=== PATIENT | female | born 1990 | race African-American/Black ===

== ENCOUNTER 2022-10-24 20:05 | Emergency (ER) | payer OTHER, SELFPAY ==
[2022-10-24 20:37] VITALS: BP 157/114; PULSE 100; RESP 18; TEMP 36.9; O2SAT 97; BMI 33.7
--- NOTE | 2022-10-24 21:14 | ED.EYEPROB1 ---
HPI - Eye Problem General Stated complaint: EYE Time Seen by Provider: 10/24/22 20:59 Source: patient Mode of arrival: walk-in Limitations: no limitations History of Present Illness HPI Narrative: history of Crohn's related uveitis. States when she has a flare of her eyelids also swell. States started today. She does not have any steroid drops and so she came to the ER. She also complains of a sore throat for past week. States soreness has improved some. Hoarse voice for a couple of days. No problem breathing or swallowing. No fever or chills. Related Data Home Medications Medication Instructions Recorded Confirmed adalimumab 40 mg/0.4 mL mg subcut 10/24/22 subcutaneous pen kit (Humira(CF) Pen) azathioprine 50 mg tablet mg 10/24/22 levothyroxine 125 mcg tablet mcg 10/24/22 Allergies Allergy/AdvReac Type Severity Reaction Status Date / Time No Known Drug Allergies Allergy Verified 10/24/22 20:46 Review of Systems ROS Status of ROS 10 or more systems reviewed and unremarkable except as noted in history and below Ears, nose, mouth, and throat Reports: throat pain and hoarseness PFSH PFSH Social History Smoking status: Never smoker Exam Constitutional Vital Signs - 24 hr 10/24/22 20:37 Temperature 98.4 F Pulse Rate [Monitor] 100 H Respiratory Rate 18 Blood Pressure [Right Arm] 157/114 H Pulse Oximetry 97 Oxygen Delivery Method Room Air Common normals: oriented x3, healthy appearing, alert and well nourished [facility] Common normals: normocephalic, head/scalp atraumatic and hearing grossly normal bilaterally Other: oral pharynx clear. No swelling Eye Common normals: PERRL, EOMs intact bilaterally and conjunctivae normal Other: OD photosensitivity . mild swelling upper and lower right eye lid. No erythema. conjunctiva clear. iris clear. Respiratory Common normals: normal respiratory effort, no use of accessory muscles and clear to auscultation bilaterally Cardio Common normals: regular rate, regular rhythm, S1 normal heart sound and S2 normal heart sound GI Common normals: Normal to inspection, nondistended, normoactive bowel sounds present and non-tender Extremity Common normals: normal to inspection and no joint enlargement Neuro Common normals: oriented x3, CN's II-XII intact bilaterally, moves all extremities and no focal motor deficits Psych Appearance: grossly normal Course Vital Signs Vital signs: Vital Signs Temperature 98.4 F 10/24/22 20:37 Pulse Rate 100 H 10/24/22 20:37 Respiratory Rate 18 10/24/22 20:37 Blood Pressure 157/114 H 10/24/22 20:37 Pulse Oximetry 97 10/24/22 20:37 Oxygen Delivery Method Room Air 10/24/22 20:37 Temperature 98.4 F 10/24/22 20:37 Pulse Rate 100 H 10/24/22 20:37 Respiratory Rate 18 10/24/22 20:37 Blood Pressure 157/114 H 10/24/22 20:37 Pulse Oximetry 97 10/24/22 20:37 Oxygen Delivery Method Room Air 10/24/22 20:37 MDM - Eye Problem MDM Narrative Medical decision making narrative: presents with right eye uveitis flare associated with photosensitivity and mild swelling of the upper and lower eye lid. States with her past flare ups her eyelids do swell. She normally takes prednisolone drops but ran out. She also has laryngitis . Sore throat for one week and hoarse voice for a couple of days. Admits her throat is feeling better and inspection of her pharynx is normal. Patient given dose of prednisone and pred forte drops for her eye. 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 Return if eye or throat worsens Stand Alone Forms: Portal Instructions Referrals: Physician,Non-Staff, MD [Primary Care Provider] - 1 week Follow Up Appointments: as above
[2022-10-24] MEDS: PREDNISONE 20 MG TABLET 60 MG PO (21:16)
[2022-10-24] MEDS: PREDNISOLONE ACETATE OP 1% SUSP 100 DROPS/5 ML 2 DROP OP (21:38)
[2022-10-24 21:52] VITALS: BP 144/98; PULSE 68; RESP 18; O2SAT 100
== END 2022-10-24 21:55 | disposition home or self-care (01) ==
PROVIDERS: Emergency Provider Internal Medicine
DX: J04.0 Acute laryngitis (principal); K12.2 Cellulitis and abscess of mouth; Z79.899 Other long term (current) drug therapy; Z79.890 Hormone replacement therapy
CPT/HCPCS: 99283

== ENCOUNTER 2023-04-02 23:27 | Emergency (ER) | payer OTHER, SELFPAY ==
[2023-04-02 23:28] VITALS: BP 170/110; PULSE 77; RESP 16; TEMP 36.4; O2SAT 99; BMI 37.2
[2023-04-02 23:45] VITALS: BP 158/116
--- NOTE | 2023-04-02 23:55 | ED_ITS ---
HPI - Epistaxis General Chief Complaint: Epistaxis Stated Complaint: NOSE BLEED Time Seen by Provider: 04/02/23 23:28 Source: patient Mode of arrival: walk-in Limitations: no limitations History of Present Illness HPI Narrative: 32-year-old female presents for nosebleed. About an hour and a half ago her [id number] daughter accidentally hit her in her nose and she had bleeding for about thirty minutes from the left side. It stopped. There was no bleeding from the right side and she doesn't have pain. Years ago she had to have nasal surgery because of frequent nosebleeds. Related Data Home Medications Medication Instructions Recorded Confirmed adalimumab 40 mg/0.4 mL mg subcut 10/24/22 subcutaneous pen kit (Humira(CF) Pen) azathioprine 50 mg tablet mg 10/24/22 levothyroxine 125 mcg tablet mcg 10/24/22 Allergies Allergy/AdvReac Type Severity Reaction Status Date / Time No Known Drug Allergies Allergy Verified 10/24/22 20:46 Review of Systems ROS Narrative A ten point review of systems is negative except as noted above. PFSH PFS Social History Smoking status: Never smoker Exam Narrative Exam Narrative: Nurses note and vital signs reviewed and patient is not hypoxic. General: The patient appears well and in no apparent distress. Patient is resting comfortably on cart. Skin: Warm, dry, no pallor noted. There is no rash noted. Head: Normocephalic, atraumatic Eye: Normal conjunctiva, no drainage Ears, Nose, Mouth, and Throat: oral mucosa is moist. Nares patent. there is no epistaxis. There is no dried blood in either nostril. There is no site of bleeding noted on the left side. The septum appears normal. there is no bruising or swelling to the bridge of the nose. Cardiovascular: Regular Rate and Rhythm Respiratory: Patient is in no distress, no accessory muscle use, lungs are clear to auscultation, no wheezing, rales or rhonchi Back: non-tender GI: soft and nontender Musculoskeletal: The patient has no evidence of calf tenderness, no pitting edema, symmetrical pulses noted bilaterally Neurological: A&O, normal speech Psychiatric: Cooperative Constitutional Vital Signs, click to edit/add: Last Vital Signs Temp 97.6 F 04/02/23 23:28 Pulse 77 04/02/23 23:28 Resp 16 04/02/23 23:28 BP 158/116 H 04/02/23 23:45 Pulse Ox 99 04/02/23 23:28 O2 Del Method Room Air 04/02/23 23:28 Course Vital Signs Vital signs: Vital Signs Temperature 97.6 F 04/02/23 23:28 Pulse Rate 77 04/02/23 23:28 Respiratory Rate 16 04/02/23 23:28 Blood Pressure 170/110 H 04/02/23 23:28 Pulse Oximetry 99 04/02/23 23:28 Oxygen Delivery Method Room Air 04/02/23 23:28 Temperature 97.6 F 04/02/23 23:28 Pulse Rate 77 04/02/23 23:28 Respiratory Rate 16 04/02/23 23:28 Blood Pressure 158/116 H 04/02/23 23:45 Pulse Oximetry 99 04/02/23 23:28 Oxygen Delivery Method Room Air 04/02/23 23:28 MDM - Epistaxis MDM Narrative Medical decision making narrative: she has a normal exam. Further intervention is not indicated. Her blood pressure however was found to be elevated here and she'll have that rechecked by her family doctor. 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 Treatment diagnosis and follow-up were discussed with the patient. I've no clinical suspicion of nasal fracture. Differential Diagnosis Differential diagnosis: Likely anterior epistaxis and other (nasal contusion) Discharge Plan Discharge Chief Complaint: Epistaxis Clinical Impression: Elevated blood pressure reading, Epistaxis Patient Disposition: Home, Self-Care Time of Disposition Decision: 23:54 Condition: Good Mode of Transportation: Private Vehicle Prescriptions / Home Meds: No Action azathioprine 50 mg tablet levothyroxine 125 mcg tablet Humira(CF) Pen 40 mg/0.4 mL pen injector kit SUBCUT Instructions: Nosebleed (ED) Additional Instructions: Blood pressure recheck from your family doctor Stand Alone Forms: Portal Instructions Referrals: Physician,Non-Staff, MD [Primary Care Provider] - 1 week
== END 2023-04-03 00:06 | disposition home or self-care (01) ==
PROVIDERS: Emergency Provider Emergency Medicine
DX: R04.0 Epistaxis (principal); R03.0 Elevated blood-pressure reading, without diagnosis of hypertension
CPT/HCPCS: 99281

== ENCOUNTER 2024-04-15 23:18 | Emergency (ER) | payer OTHER, SELFPAY ==
--- OUTSIDE RECORDS SUMMARY | 2024-04-15 23:25 | XMS_ITS | CCD ---
Author Organization [facility] Care Team Providers Care Side Piece Coverer Name Role Phone PADMA OROZCO Attending Unavailable ERNESTO, PADMA Primary Care Unavailable AMY BURNETT Attending Unavailable ERNESTO, PADMA Primary Care Unavailable ERNESTO, PADMA Attending Unavailable ERNESTO, PADMA Primary Care Unavailable ERNESTO, MATTHEW A Admitting Unavailable ERNESTO, MATTHEW A Attending Unavailable ERNESTO, MATTHEW A Primary Care Unavailable Russ Salmeron Attending Unavailable Family Physician Unavailable Primary Care [place]ba vailable Family Physician Unavailable Consulting [place] vailable Russ Salmeron Attending Unavailable Family Physician Unavailable Primary Care [place] vailable Family Physician Unavailable Consulting [place] vailable Family Physician Unavailable Consulting [place] vailable Lita Iqbal Attending Unavailable Russ Salmeron Primary Care Unavailable Lita Iqbal Attending Unavailable Russ Salmeron Primary Care Unavailable Family Physician Unavailable Consulting [place] vailable Mary Henriquez Attending Unavailable Ernesto, Matthew Primary Care Unavailable Ernesto, Matthew Consulting Unavailable Ernesto, Padma Unavailable Unavailable Yursky, Scarlett Unavailable Unavailable Ernesto, Matthew Unavailable Unavailable Kassi Sheehan Unavailable Unavailab le Matthew Orozco A Unavailable Unavailable Yursky, Sarah Unavailable Unavailable Arafah, Baha Unavailable Unavailable Rezaee, Jimmy Unavailable Unavailable Irene, Abdullahi Unavailable Unavailable Jass, Lorayne Unavailable Unavailable Yursky, Scarlett Unavailable Unavailable Irene, Abdullahi Unavailable Unavailable Jass, Lorayne Unavailable Unavailable Arafah, Baha Unavailable Unavailable Ernesto, Matthew A Unavailable Unavailable Unavailable Unavailable Unavailable OLIVIA PETE Referring Unavailable JONES ., DR FINK Admitting Unavailabl e JONES ., DR FINK Attending Unavailabl e REQUEST, DR ELVIRA LISTED Primary Care Unavaila ble KARASIK ., DR FINK Consulting Unavailabl e KARASIK ., DR FINK Admitting Unavailabl e REQUEST, DR NONE LISTED Primary Care Unavaila ble KARASIK ., DR FINK Attending Unavailabl e KARASIK ., DR FINK Consulting Unavailabl e REQUEST, DR NONE LISTED Primary Care Unavaila ble KARASIK ., DR FINK Consulting Unavailabl e KARASIK ., DR FINK Admitting Unavailabl e KARASIK ., DR FINK Attending Unavailabl e KARASIK ., DR FINK Attending Unavailabl e REQUEST, DR NONE LISTED Primary Care Unavaila ble KARASIK ., DR FINK Consulting Unavailabl e KARASIK ., DR FINK Admitting Unavailabl e AGUBOSIM, MAZIN Consulting Unavailable KARASIK ., DR FINK Procedure Practitioner [place] SWETA Ambrose Consulting Unavailable REQUEST, DR NONE LISTED Primary Care Unavaila ble JULIO, LINDY M Consulting Unavailable DIAB ., EDIE Admitting Unavailable DIAB ., EDIE Attending Unavailable DIAB ., EDIE Consulting Unavailable VIK ., DR SAN Consulting Unavailable VIK ., DR SAN Admitting Unavailable VIK ., DR SAN Attending Unavailable REQUEST, DR NONE LISTED Primary Care Unavaila ble KARASIK ., DR FINK Admitting Unavailabl e REQUEST, NONE LISTED Primary Care Unavaila ble KARASIK ., DR FINK Attending Unavailabl e KARASIK ., DR FINK Admitting Unavailabl e REQUEST, DR NONE LISTED Primary Care Unavaila ble KARASIK ., DR FINK Attending Unavailabl e KARASIK ., DR FINK Admitting Unavailabl e REQUEST, DR NONE LISTED Primary Care Unavaila ble KARASIK ., DR FINK Attending Unavailabl e Irene, Dr. Fernando Referring Unavailable Irene, Dr. Fernando Attending Unavailable Ernesto, Dr. Matthew Guillermo Primary Care Unavail able Irene, Dr. Fernando Attending Unavailable Irene, Dr. Fernando Referring Unavailable Ernesto, Dr. Matthew Guillermo Primary Care Unavail able Irene, Dr. Fernando Referring Unavailable Irene, Dr. Fernando Attending Unavailable Ernesto, Dr. Matthew Guillermo Primary Care Unavail able Irene, Dr. Fernando Referring Unavailable Irene, Dr. Fernando Attending Unavailable Ernesto, Dr. Matthew Guillermo Primary Care Unavail able Ernesto, Dr. Matthew Guillermo Referring Unavail able Ernesto, Dr. Matthew Guillermo Primary Care Unavail able MARY GRACEJOSEMI, PREM Attending Unavailable Kurup, Dr. Tom Dewey Attending Unavailab le Ernesto, Dr. Matthew Guillermo Referring Unavail able Ernesto, Dr. Matthew Guillermo Primary Care Unavail able Kurup, Dr. Tom Dewey Attending Unavailab le Ernesto, Dr. Matthew Guillermo Primary Care Unavail able Kurup, Dr. Tom Dewey Referring Unavailab le Ernesto, Dr. Matthew Guillermo Referring Unavail able Ernesto, Dr. Matthew Guillermo Primary Care Unavail able CHOWDHRY, PREM Attending Unavailable Bujorian, MsMachelle Sunshine Attending Unavailab le Bujorian, MsMachelle Sunshine Admitting Unavailab le Ernesto, Dr. Matthew Guillermo Primary Care Unavail able Dolores, MsMachelle Lóepz Attending Unavailable Dolores, MsMachelle López Admitting Unavailable Ernesto, Dr. Matthew Guillermo Primary Care Unavail able Bujorian, MsMachelle Sunshine Attending Unavailab le Bujorian, MsMachelle Sunshine Admitting Unavailab le Ernesto, Dr. Matthew Guillermo Primary Care Unavail able Ernesto, Dr. Padma Guerrier Referring Unava ilable Ernesto, Dr. Padma Guerrier Attending Unava ilable Ernesto, Dr. Matthew Guillermo Primary Care Unavail able Kurup, Dr. Tom Dewey Referring Unavailab le Kurup, Dr. Tom Dewey Attending Unavailab le Ernesto, Dr. Matthew Guillermo Primary Care Unavail able Kurup, Dr. Tom Dewey Referring Unavailab le Kurup, Dr. Tom Dewey Attending Unavailab le Ernesto, Dr. Matthew Guillermo Primary Care Unavail able Ernesto, Dr. Matthew Guillermo Primary Care Unavail able Dolores, Mariia Attending Unavailable Dolores, Mariia Attending Unavailable Ernesto, Dr. Matthew Guillermo Primary Care Unavail able Dolores, Mariia Attending Unavailable Ernesto, Dr. Matthew Guillermo Primary Care Unavail able Dolores, Mariia Attending Unavailable Ernesto, Dr. Matthew Guillermo Primary Care Unavail able Ernesto, Dr. Matthew Guillermo Primary Care Unavail able Dolores, Mariia Attending Unavailable Matthew Orozco DO Primary Care Provider [phone] Dolores PA-C, Mariia Unavailable Dolores PA-C, Mariia Unavailable Unavailable Dolores PA-C, Mariia Unavailable Unavailable MATTHEW OROZCO Primary Care Unavailable MATTHEW OROZCO Primary Care Unavailable ERNESTO, MATTHEW A Primary Care Unavailable ERNESTO, MATTHEW A Primary Care Unavailable AMARARTKIKO MANCIA Attending Unavailable DOLORES, MARIIA Referring Unavailable ERNESTO, MATTHEW A Primary Care Unavailable ERNESTO, MATTHEW A Primary Care Unavailable ERNESTO, MATTHEW A Primary Care Unavailable LEAVERTONKIKO Attending Unavailable LEAVERTON, KIKO L Referring Unavailable ERNESTO, MATTHEW A Primary Care Unavailable ERNESTO, MATTHEW A Primary Care Unavailable LEAVERTKIKO MANCIA Attending Unavailable LEAVERTONKIKO L Referring Unavailable ERNESTO, MATTHEW A Primary Care Unavailable DOLORES, MARIIA Attending Unavailable ERNESTO, MATTHEW A Primary Care Unavailable DOLORES, MARIIA Referring Unavailable ERNESTO, MATTHEW A Primary Care Unavailable DOLORES, MARIIA Referring Unavailable ERNESTO, MATTHEW A Primary Care Unavailable DOLORES, MARIIA Referring Unavailable ERNESTO, MATTHEW A Primary Care Unavailable DOLORES, MARIIA Referring Unavailable ERNESTO, MATTHEW A Primary Care Unavailable LEAVERTON, KIKO Desai Attending Unavailable ERNESTO, MATTHEW A Primary Care Unavailable ERNESTO, MATTHEW A Primary Care Unavailable CHERELLE ZARATE Attending Unavailable ERNESTO, MATTHEW A Primary Care Unavailable ERNESTO, MATTHEW A Attending Unavailable ERNESTO, MATTHEW A Primary Care Unavailable PADMA TRUONG Attending Unavailable ERNESTO, MATTHEW A Primary Care Unavailable TOM VASQUEZ Attending Unavailable ERNESTO, MATTHEW A Primary Care Unavailable TOM VASQUEZ Referring Unavailable ERNESTO, MATTHEW A Attending Unavailable ERNESTO, MATTHEW A Primary Care Unavailable LEONCIO SPARROW Attending Unavailable ERNESTO, MATTHEW A Primary Care Unavailable BINU BALDWIN Attending Unavailable ERNESTO, MATTHEW A Primary Care Unavailable TOM VASQUEZ Attending Unavailable ERNESTO, MATTHEW A Primary Care Unavailable TOM VASQUEZ Referring Unavailable Kendra Garcia MD Attending Provider Kendra Garcia Attending Unavailable Kendra Garcia Admitting Unavailable Medications Current Medications Medication Drug Class(es) Dates Sig (Normalized) Sig (Original) 0.4 ml adalimumab 100 mg/ml auto-injector (20 sources) Tumor Necrosis Factor Cherelle Start: 09-06-2019 Humira 40 MG/0.4ML Subcutaneous Prefilled Syringe Kit on hold Refills: 0 DO Start : 06-Sep-2019 Active Start: 05-03-2019 End: 04-27-2024 adalimumab (Humira,CF, Pen) 40 mg/0.4 mL pen injector kit pen-injector Indications: Crohn's disease of small and large intestines with complication (Multi) INJECT 40MG (1 PEN) UNDER THE SKIN ONCE WEEKLY DIRECTED. 12 each 3 02/16/2024 3:59 PM EDT 04/28/2023 04/27/2024 Active Start: 05-03-2019 Humira Pen 40 MG/0.4ML Subcutaneous Pen-injector Kit Inject 40mg SQ every 7 days Quantity: 6 Refills: 3 Ordered: 20-Jul-2020 Padma Orozco MD Start : 03-May-2019 Active Start: 05-03-2019 Humira Pen 40 MG/0.4ML Subcutaneous Pen-injector Kit INJECT 40MG (1 PEN) UNDER THE SKIN EVERY OTHER WEEK DIRECTED. Quantity: 2 Refills: 0 Scarlett Mittal Start : 03-May-2019 Active Start: 05-03-2019 Humira Pen 40 MG/0.4ML Subcutaneous Pen-injector Kit inject every 14days Quantity: 3 Refills: 3 Scarlett Mittal Start : 03-May-2019 Active Start: 05-03-2019 Humira Pen-CD/ UC/HS Starter 80 MG/0.8ML Subcutaneous Pen-injector Kit inject two 80mg/0.8ml pens SQ on day 1 then inject one 80mg/0.8ml pen on day 15. Quantity: 1 Refills: 0 Scarlett Mittal Start : 03-May-2019 Active inject 1 dose by sub cutaneous injection once adalimumab (Humira) 40 mg/0.8 mL syringe kit prefilled syringe Inject 1 each (40 mg) under the skin 1 time. 0 Active amoxicillin 500 mg oral capsule (2 sources) Penicillin-class Antibacterial Start: 07-04-2022 amoxicillin (Amoxil) 500 mg capsule azaTHIOprine 50 mg oral tablet (20 sources) Purine Antimetabolite Start: 03-02-2024 End: 03-02-2025 take 1 tablet by mouth every other day, then take 1 tablet by mouth every other day azaTHIOprine (Imuran) 50 mg tablet Indications: Crohn's disease of small and large intestines with complication (Multi) Take 1 tablet (50 mg) by mouth every other day. alternating 1 tablet every other day 45 tablet 3 03/02/2024 03/02/2025 Active Start: 03-02-2024 End: 03-02-2025 take 1 tablet by mouth every other day azaTHIOprine (Imuran) 75 mg tablet Indications: Crohn's disease of small and large intestines with complication (Multi) Take 1 tablet (75 mg) by mouth every other day. 45 tablet 3 03/02/2024 03/02/2025 Active Start: 06-17-2015 End: 03-02-2024 take 1 tablet by mouth once daily azaTHIOprine (Imuran) 75 mg tablet Take by mouth once daily. 06/17/2015 03/02/2024 Discontinued (Reorder) Start: 12-07-2012 take 1 tablet by jojo once daily Azathioprine 50 mg Tablet Active 50 MG PO Daily May 10, 2018 12:00am Start: 12-07-2012 End: 03-02-2024 take 1.5 tablets by mouth once daily azaTHIOprine (Imuran) 50 mg tablet Indications: Crohn's disease of small and large intestines with complication (Multi) Take 1.5 tablets (75 mg) by mouth once daily. alternating 1 tablet every other day 75mg 4xweekly 50mg 3xweekly 45 tablet 11 03/02/2024 03/02/2024 Discontinued (Reorder) blood pressure monitor kit (4 sources) Start: 08-25-2023 blood pressure monitor kit Indications: Wellness examination 1 Units once daily. 1 kit 08/25/2023 Active cholecalciferol 0.05 mg oral capsule (20 sources) Vitamin D Start: 10-09-2021 take 1 capsule by mouth once daily cholecalciferol (Vitamin D-3) 50 mcg (2,000 unit) capsule Take 1 capsule (50 mcg) by mouth once daily. 10/09/2021 Active Start: 10-09-2021 [facility] daily cholecalciferol (Vitamin D-3) 50 mcg (2,000 unit) capsule Take 1 capsule (2,000 Units) by mouth once daily. 0 10/09/2021 Active Start: 05-10-2018 [facility] 1 [facility] daily Cholecalciferol (Vitamin D3) (Vitamin D3) 1,000 unit Capsule Active 1000 UNIT PO Daily May 10, 2018 12:00am cholecalciferol (Vitamin D-3) 5,000 Units tablet Take 1 tablet (5,000 Units) by mouth every 7 days. 0 Active ergocalciferol 1.25 mg oral capsule (20 sources) Provitamin D2 Compound Start: 06-29-2018 ergocalciferol (Vitamin D-2) 1.25 MG (73863 UT) capsule Take by mouth. 06/29/2018 Active fluticasone propionate 0.05 mg/actuat metered dose nasal spray (14 sources) Corticosteroid Start: 04-12-2019 fluticasone (Flonase) 50 mcg/actuation nasal spray Administer into affected nostril(s) if needed. 04/12/2019 Active ibuprofen 800 mg oral tablet (2 sources) Nonsteroidal Anti-inflammatory Drug ibuprofen 800 mg tablet Take by mouth. 0 Active levothyroxine sodium 0.137 mg oral tablet (20 sources) l-Thyroxine Start: 12-30-2023 End: 12-29-2024 take 1 tablet by mouth in the morning levothyroxine (Synthroid, Levoxyl) 137 mcg tablet Indications: Hypothyroidism, postsurgical Take 1 tablet (137 mcg) by mouth early in the morning.. 30 tablet 11 12/30/2023 12/29/2024 Active Start: 08-25-2023 take 1 tablet by jojo th once daily levothyroxine (Synthroid, Levoxyl) 125 mcg tablet Indications: Hypothyroidism, postsurgical Take 1 tablet (125 mcg) by mouth once daily. as directed 90 tablet 1 08/25/2023 Active Start: 04-14-2023 take 1 tablet by jojo th once daily levothyroxine (Synthroid, Levoxyl) 125 mcg tablet Indications: Hypothyroidism, postsurgical TAKE 1 TABLET BY MOUTH ONCE DAILY DIRECTED 90 tablet 0 04/14/2023 Active Start: 05-02-2020 take 1 tablet by jojo th once daily levothyroxine (Synthroid, Levoxyl) 125 mcg tablet Take 1 tablet (125 mcg) by mouth once daily. 0 05/02/2020 Active Start: 05-02-2020 take 1 tablet by jojo th in the morning Levothyroxine Sodium 175 MCG Oral Tablet TAKE ONE TABLET IN THE AM ON AN EMPTY STOMACH Quantity: 30 Refills: 2 Ordered: 15-Oct-2021 Leoncio Sparrow MD Start : 02-May-2020 Active Start: 02-21-2020 take 1 tablet by jojo th once daily Levothyroxine Sodium 175 MCG Oral Tablet TAKE ONE TABLET BY MOUTH EVERY DAY Quantity: 60 Refills: 4 Polo Regan MD Start : 21-Feb-2020 Active Start: 06-29-2018 take 1 tablet by jojo th once daily Levoxyl 125 MCG Oral Tablet Take 1 tablet daily Quantity: 90 Refills: 3 Polo Regan Start : 29-Jun-2018 Active levothyroxine (S ynthroid, Levoxyl) 125 mcg tablet Take 175 mcg by mouth daily. 175 M-F AND 175 X2 ON S-S 0 Active PNV no.95/ferrous fum/folic ac ( ORAL) (2 sources) PNV no.95/ferrou s fum/folic ac ( ORAL) Take by mouth. 0 Active polyethylene glycol 3350 428217 mg / potassium chloride 1480 mg / sodium bicarbonate 5720 mg / sodium chloride 85679 mg powder for oral solution (12 sources) Osmotic Laxative Start: 04-29-2022 polyethylene glycol-electrolytes 420 gram solution Take by mouth if needed. take as directed 04/29/2022 Active Start: 04-29-2022 polyethylene g lycol-electrolytes 420 gram solution take as directed 04/29/2022 Active Start: 11-26-2021 PEG 3350-KCl-N a Bicarb-NaCl 420 GM Oral Solution Reconstituted TAKE DIRECTED. Quantity: 1 Refills: 0 Ordered: 26-Nov-2021 Scarlett Mittal Start : 26-Nov-2021 Active prednisoLONE acetate 10 mg/ml ophthalmic suspension (8 sources) Corticosteroid Start: 08-01-2022 take 1 drop(s) into the eye(s) three times daily, then take 1 drop(s) into the eye(s) twice daily, then take 1 drop(s) into the eye(s) once daily prednisoLONE acetate (Pred-Forte) 1 % ophthalmic suspension Administer 1 drop into affected eye(s) 3 times a day. x 2 weeks 1 drop BID x 2weeks 1 drop QD x 2 weeks stop 0 08/01/2022 Active Start: 08-01-2022 Pred Forte 1 % Ophthalmic Suspension I dropTID x 2 weeks1 drop BID x [id number] drop QD x 2 weeks stop Quantity: 1 Refills: 0 Ordered: 01-Aug-2022 Tom Vasquez MD Start : 01-Aug-2022 Active Completed/Discontinued Medications Medication Drug Class(es) Dates Sig (Normalized) Sig (Original) benzoyl peroxide 100 mg/ml medicated liquid soap (20 sources) Start: 02-28-2020 Benzoyl Peroxide Wash 10 % External Liquid APPLY DAILY DIRECTED TO AFFECTED AREAS A BODY WASH Quantity: 237 Refills: 0 Ordered: 29-Mar-2020 DO Start : 28-Feb-2020 Active clindamycin 10 mg/ml topical lotion (20 sources) Lincosamide Antibacterial Start: 02-28-2020 Clindamycin Phosphate 1 % External Lotion APPLY DAILY TO AFFECTED AREAS ON BODY Quantity: 60 Refills: 0 Ordered: 29-Mar-2020 DO Start : 28-Feb-2020 Active 0.4 ml enoxaparin sodium 100 mg/ml prefilled syringe (20 sources) Low Molecular Weight Heparin Start: 03-27-2020 Enoxaparin Sodium 40 MG/0.4ML Injection Solution Prefilled Syringe Quantity: 4 Refills: 0 Ordered: 30-Oct-2021 DO Start : 10-Sep-2021 Complete Start: 03-27-2020 Enoxaparin Sod ium 40 MG/0.4ML SOLN Quantity: 12 Refills: 0 Ordered: 12-May-2020 DO Start : 27-Mar-2020 Active labetalol hydrochloride 200 mg oral tablet (3 sources) beta-Adrenergic Cherelle Start: 10-03-2021 Labeta lol HCl - 200 MG Oral Tablet Quantity: 60 Refills: 0 Ordered: 03-Oct-2021 DO Start : 03-Oct-2021 Complete Labetalol HCl-Sodium Chloride 200-0.9 MG/200ML-% SOLN (5 sources) Labetalol HCl-Sodium Chloride 200-0.9 MG/200ML-% SOLN Quantity: 0 Refills: 0 Ordered: 08-Oct-2021 DO Active mupirocin 0.02 mg/mg topical ointment (20 sources) RNA Synthetase Inhibitor Antibacterial Start: 09-09-2022 Mupirocin 2 % External Ointment Apply a small amount to nose twice daily for 3 weeks. Quantity: 1 Refills: 2 Ordered: 09-Sep-2022 Abdullahi Barros MD Start : 09-Sep-2022 Active Start: 10-08-2021 Mupirocin 2 % External Ointment Apply a small amount to the nostrils 1-2 times daily as needed Quantity: 1 Refills: 6 Ordered: 08-Oct-2021 Abdullahi Bonilla MD Start : 08-Oct-2021 Active Start: 11-20-2020 Mupirocin 2 % External Ointment Apply a small amount to nose twice daily for 4 weeks. Quantity: 1 Refills: 3 Ordered: 20-Nov-2020 Abdullahi Bonilla MD Start : 20-Nov-2020 Active Start: 05-31-2019 End: 06-11-2019 Mupirocin 2 % External Ointm ent APPLY SPARINGLY TO AFFECTED AREA(S) 2 TIMES A DAY Quantity: 1 Refills: 1 Matthew Orozco DO Start : 31-May-2019 End : 10-Jun-2019 Active 22 GM Tube olopatadine 1 mg/ml ophthalmic solution (3 sources) Histamine-1 Receptor Inhibitor Start: 08-27-2018 take 1 drop(s) into the eye(s) once daily Olopatadine HCl - 0.1 % Ophthalmic Solution APPLY 1 DROP Daily Quantity: 1 Refills: 5 Matthew Orozco DO Start : 27-Aug-2018 Active 5 ML Bottle polysaccharide iron complex 150 mg oral capsule (5 sources) Start: 01-18-2020 take 1 capsule by mouth once daily Ferrex 150 150 MG Oral Capsule take 1 capsule by mouth once daily Quantity: 30 Refills: 0 Ordered: 20-Jan-2020 DO Start : 18-Jan-2020 Active polysaccharide i emilie complex 150 mg iron tablet Take by mouth. 0 Active predniSONE 50 mg oral tablet (2 sources) Start: 12-03-2019 predniSONE 50 MG Oral Tablet Quantity: 5 Refills: 0 Ordered: 03-Dec-2019 DO Start : 03-Dec-2019 Active 27-1 MG Oral Tablet (20 sources) Start: 02-11-2021 27-1 MG Oral Tablet Quantity: 30 Refills: 0 Ordered: 11-Feb-2021 DO Start : 11-Feb-2021 Active terconazole 4 mg/ml vaginal cream (3 sources) Azole Antifungal Start: 11-22-2019 Terconazole 0 .4 % Vaginal Cream APPLY ONE APPLICATION IN THE VAGINA EVERY NIGHT AT BEDTIME FOR 7 DAYS Quantity: 45 Refills: 0 Ordered: 23-Nov-2019 DO Start : 22-Nov-2019 Active 1 ml ustekinumab 90 mg/ml prefilled syringe (3 sources) Interleukin-12 Antagonist, Interleukin-23 Antagonist Start: 04-06-2019 Stelara 90 MG/ML Subcutaneous Solution Prefilled Syringe inject subcutaneously every 8 weeks Quantity: 1 Refills: Scarlett Alas Start : 06-Apr-2019 Active Milliliter Problems Active Problems Problem Classification Problem Date Documented Da te Episodic/Chronic Complications of surgical procedures or medical care (20 sources) Postoperative hypothyroidism; Translations: [Postsurgical hypothyroidism] Onset: 08-21-2022 08-21-2022 Chronic Conditions associated with dizziness or vertigo (3 sources) Lightheadedness; Translations: [Lightheadedness] Episodic Deficiency and other anemia (9 sources) Iron deficiency anemia due to blood loss; Translations: [Iron deficiency anemia secondary to blood loss (chronic)] Onset: 03-13-2023 03-13-2023 Chronic Deficiency and other anemia (4 sources) Iron deficiency anemia secondary to blood loss (chronic); Translations: [Iron deficiency anemia secondary to blood loss (chronic)] Onset: 03-13-2023 Chronic Deficiency and other anemia (4 sources) Iron deficiency anemia; Translations: [Iron deficiency anemia, unspecified] 03-13-2023 Episodic Hypertension complicating ; childbirth and the puerperium (4 sources) Unspecified maternal hypertension, complicating the puerperium; Translations: [UNSPEC MATERNAL HTN COMP PUERPERIUM] Onset: 10-02-2021 Chronic Inflammation; infection of eye (except that caused by tuberculosis or sexually transmitteddisease) (20 sources) Allergic conjunctivitis; 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] Onset: 11-08-2014 Chronic Malaise and fatigue (20 sources) Fatigue; Translations: [Other malaise and fatigue] Episodic Nutritional deficiencies (20 sources) Vitamin D deficiency; Translations: [Unspecified vitamin D deficiency] Onset: 08-21-2022 08-21-2022 Chronic Other ear and sense organ disorders (12 sources) Bilateral hearing loss; Translations: [History of Hearing loss of both ears due to cerumen impaction] Chronic Other ear and sense organ disorders (20 sources) Chronic otitis externa; Translations: [Other chronic otitis externa] Onset: 08-21-2022 08-21-2022 Chronic Other ear and sense organ disorders (20 sources) Impacted cerumen; Translations: [Impacted cerumen] Episodic Other endocrine disorders (9 sources) Adrenal cortical hypofunction; Translations: [History of Adrenal insufficiency] Chronic Other endocrine disorders (20 sources) Hypoadrenalism; 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] Onset: 05-05-2017 08-21-2022 Chronic Other eye disorders (3 sources) Unspecified papilledema; 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] Chronic Other eye disorders (20 sources) 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; Translations: [Papilledema associated with retinal disorder] Onset: 10-12-2013 08-21-2022 Chronic Other eye disorders (20 sources) Swelling of structure of eye; Translations: [Papilledema, unspecified] Onset: 11-08-2014 Chronic Other eye disorders (6 sources) Ptosis of eyelid; Translations: [History of Ptosis of right eyelid] Episodic Other female genital disorders (20 sources) Rectovaginal fistula; 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, female] Onset: 08-21-2022 08-21-2022 Chronic Other female genital disorders (20 sources) Cervical atypism; Translations: [ASCUS of cervix with negative high risk HPV] Episodic Other gastrointestinal disorders (10 sources) Malabsorption - iron; Translations: [Intestinal malabsorption, unspecified] Onset: 03-13-2023 03-13-2023 Chronic Other gastrointestinal disorders (6 sources) Intestinal malabsorption, unspecified; Translations: [Intestinal malabsorption, unspecified ([facility])] Onset: 03-13-2023 Chronic Other gastrointestinal disorders (20 sources) Constipation; Translations: [Constipation, unspecified] Episodic Other hematologic conditions (15 sources) Personal history of diseases of the blood and blood-forming organs and certain disorders involving the immune mechanism; Translations: [Prsnl history of dis of the bld/bld-form org/immun mechnsm] Onset: 09-15-2017 Episodic Other hematologic conditions (20 sources) H/O: anemia; Translations: [Personal history of diseases of blood and blood-forming organs] Episodic Other hematologic conditions (20 sources) H/O: anemia - iron deficient; Translations: [Personal history of diseases of blood and blood-forming organs] Episodic Other nutritional; endocrine; and metabolic disorders (20 sources) Obesity, unspecified; Translations: [Obese class I] Onset: 08-21-2022 08-21-2022 Chronic Other nutritional; endocrine; and metabolic disorders (20 sources) Body mass index 30+ - obesity; Translations: [Body Mass Index 32.0-32.9, adult] Chronic Other skin disorders (9 sources) Swelling of structure of eye; 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] Episodic Other skin disorders (1 source) Other follicular cysts of the skin and subcutaneous tissue; Translations: [Other follicular cysts of the skin and subcutaneous tissue] Onset: 03-31-2024 Episodic Other upper respiratory disease (2 sources) Nasal congestion; Translations: [Nasal congestion] Episodic Other upper respiratory disease (5 sources) Disorder of the nose; Translations: [Nasal crusting] Episodic Other upper respiratory infections (20 sources) Chronic sinusitis; Translations: [Chronic ethmoidal sinusitis] Onset: 08-21-2022 Resolved: 02-25-2019 08-21-2022 Chronic Other upper respiratory infections (1 source) Streptococcal pharyngitis; Translations: [STREPTOCOCCAL PHARYNGITIS] Onset: 07-07-2022 Episodic Regional enteritis and ulcerative colitis (20 sources) Crohn's disease of large intestine without complications; Translations: [Crohn's disease of colon] Onset: 11-08-2014 08-21-2022 Chronic Spondylosis; intervertebral disc disorders; other back problems (3 sources) Cervicalgia; Translations: [CERVICALGIA] Onset: 07-03-2022 Episodic Systemic lupus erythematosus and connective tissue disorders (20 sources) Autoimmune disease; Translations: [Autoimmune disease, not elsewhere classified] Onset: 08-21-2022 08-21-2022 Chronic Thyroid disorders (20 sources) Hyperthyroidism; Translations: [Multinodular goiter] Onset: 10-21-2021 Resolved: 08-27-2018 Chronic Comment on above: was on Methimazole; Unclassified (2 sources) [facility] Onset: 09-28-2017 Unclassified (1 source) CONTACT W/AND (SUSP) EXPOS COVID-19; Translations: [CONTACT W/AND (SUSP) EXPOS COVID-19] Onset: 07-07-2022 Past or Other Problems Problem Classification Problem Date Documented Da te Episodic/Chronic Abdominal pain (20 sources) Right upper quadrant pain; Translations: [Periumbilical pain] Onset: 05-25-2017 08-18-2023 Episodic Biliary tract disease (20 sources) Polyp of gallbladder; Translations: [Cholesterolosis of gallbladder] Onset: 08-21-2022 08-21-2022 Episodic Cancer of cervix (20 sources) Atypical squamous cells of undetermined significance on cervical Papanicolaou smear; Translations: [Cervical atypism] Onset: 05-27-2017 08-21-2022 Episodic Contraceptive and procreative management (1 source) Encounter for sterilization; Translations: [ENCOUNTER FOR STERILIZATION] Onset: 10-21-2021 Episodic Deficiency and other anemia (20 sources) Anemia; Translations: [Anemia, unspecified] Onset: 08-21-2022 08-21-2022 Episodic Comment on above: Added by Problem Lis jayne Migration; 2013-01-07; Moved to Suppressed Apr 09 2013 4:10PM; Deficiency and other anemia (6 sources) Iron deficiency anemia, unspecified; Translations: [Iron deficiency anemia, unspecified] Onset: 08-21-2022 Episodic Hemorrhoids (20 sources) Hemorrhoids; Translations: [Unspecified hemorrhoids without mention of complication] Onset: 08-21-2022 08-21-2022 Episodic Immunizations and screening for infectious disease (1 source) Encounter for screening for human papillomavirus (HPV); Translations: [ENC SCREENING HUMAN PAPILLOMAVIRUS] Onset: 07-19-2021 Episodic Inflammation; infection of eye (except that caused by tuberculosis or sexually transmitteddisease) (20 sources) Uveitis; Translations: [Unspecified iridocyclitis] Onset: 08-21-2022 Resolved: 02-25-2019 08-21-2022 Episodic Other aftercare (20 sources) Long-term current use of steroid; Translations: [Long-term (current) use of steroids] Onset: 11-08-2014 Episodic Other aftercare (20 sources) Drug therapy finding; Translations: [Long-term (current) use of steroids] Onset: 07-09-2017 Resolved: 08-27-2018 Episodic Other circulatory disease (4 sources) Elevated blood pressure; Translations: [Elevated blood-pressure reading, without diagnosis of hypertension] Onset: 08-18-2023 08-18-2023 Episodic Other complications of ; puerperium affecting management of mother (1 source) Endocrine, nutritional and metabolic diseases complicating childbirth; Translations: [ENDOCRN NUTR MET DZ COMP CHILDBIRTH] Onset: 10-21-2021 Episodic Other complications of ; puerperium affecting management of mother (1 source) Diseases of the digestive system complicating childbirth; Translations: [DZ DIGESTIVE SYSTEM COMP CHILDBIRTH] Onset: 10-21-2021 Episodic Other complications of (2 sources) Endocrine, nutritional and metabolic diseases complicating , third trimester; Translations: [ENDOCRN NUTR MET DZ COMP PG 3RD TRI] Onset: 09-23-2021 Episodic Other ear and sense organ disorders (20 sources) Bilateral hearing loss; Translations: [Other specified forms of hearing loss] Onset: 08-21-2022 Resolved: 08-27-2018 08-21-2022 Episodic Other ear and sense organ disorders (8 sources) Impacted cerumen of bilateral ears; Translations: [Impacted cerumen, bilateral] Onset: 08-21-2022 08-21-2022 Episodic Other eye disorders (20 sources) Unspecified ptosis of right eyelid; Translations: [Ptosis of right upper eyelid] Onset: 07-24-2014 03-28-2023 Episodic Other gastrointestinal disorders (20 sources) Dysphagia; Translations: [Dysphagia, unspecified] Onset: 03-28-2023 03-28-2023 Episodic Other lower respiratory disease (20 sources) H/O: respiratory disease; Translations: [Personal history of other diseases of respiratory system] Resolved: 02-25-2019 Episodic Other nervous system disorders (20 sources) H/O: ear disorder; Translations: [Personal history of other disorders of nervous system and sense organs] Resolved: 10-14-2016 Episodic Other non-epithelial cancer of skin (8 sources) Squamous cell carcinoma of skin; Translations: [Squamous cell carcinoma of skin, unspecified] Onset: 12-30-2022 12-30-2022 Episodic Other nutritional; endocrine; and metabolic disorders (20 sources) H/O: thyroid disorder; Translations: [Personal history of other endocrine, metabolic, and immunity disorders] Resolved: 02-25-2019 Episodic Comment on above: [place] 2011 was on Methi mazole; Other nutritional; endocrine; and metabolic disorders (9 sources) Obese class I; Translations: [Obesity (BMI 30.0-34.9)] Other and delivery including normal (5 sources) Encounter for care and examination of lactating mother; Translations: [Single live ] Onset: 10-09-2021 Episodic Other screening for suspected conditions (not mental disorders or infectious disease) (4 sources) Encounter for screening for Streptococcus B; Translations: [ENC SCR STREPTOCOCCUS B] Onset: 09-04-2021 Episodic Other skin disorders (20 sources) Folliculitis; Translations: [Other specified diseases of hair and hair follicles] Onset: 08-21-2022 08-21-2022 Episodic Other upper respiratory disease (20 sources) Bleeding from nose; Translations: [Epistaxis] Onset: 04-13-2017 Episodic Other upper respiratory disease (20 sources) Hypertrophy of nasal turbinates; Translations: [Hypertrophy of nasal turbinates] Resolved: 02-25-2019 Episodic Other upper respiratory disease (9 sources) Deviated nasal septum; Translations: [Deviated nasal septum] Onset: 03-28-2023 03-28-2023 Episodic Other upper respiratory disease (20 sources) Nasal obstruction; Translations: [Other disease of nasal cavity and sinuses] Onset: 08-21-2022 08-21-2022 Episodic Other upper respiratory disease (20 sources) Other specified disorders of nose and nasal sinuses; Translations: [Crusting on nose] Onset: 08-21-2022 08-21-2022 Episodic Other upper respiratory disease (20 sources) Nasal vestibulitis; Translations: [Other disease of nasal cavity and sinuses] Onset: 08-21-2022 08-21-2022 Episodic Phlebitis; thrombophlebitis and thromboembolism (20 sources) H/O: Deep vein thrombosis; Translations: [Personal history of venous thrombosis and embolism] Onset: 05-22-2021 Resolved: 10-14-2016 12-30-2022 Episodic Previous (1 source) Maternal care for low transverse scar from previous delivery; Translations: [MAT CARE LW TRANS SCAR PREV C/S DEL] Onset: 10-21-2021 Episodic Pulmonary heart disease (20 sources) H/O: pulmonary embolus; Translations: [Personal history of pulmonary embolism] Onset: 10-21-2021 Resolved: 10-14-2016 Episodic Residual codes; unclassified (1 source) 39 weeks gestation of ; Translations: [39 WEEKS GESTATION OF ] Onset: 10-21-2021 Episodic Syncope (20 sources) Syncope; Translations: [Syncope and collapse] Onset: 08-21-2022 08-21-2022 Episodic Thyroid disorders (20 sources) Disorder of thyroid gland; Translations: [Unspecified disorder of thyroid] Onset: 03-28-2023 03-28-2023 Episodic Unclassified (20 sources) Drug therapy finding; Translations: [History of On prednisone therapy] Unclassified (12 sources) Long-term current use of steroid; Translations: [History of Chronic steroid use] Unclassified (20 sources) Well adult; Translations: [Well adult] Unclassified (19 sources) Effective bowel preparation for surgery; Translations: [Effective bowel preparation for surgery] Unclassified (8 sources) Onset: 08-22-2022 Resolved: 12-11-2023 08-22-2022 Viral infection (20 sources) Cytomegaloviral colitis; 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, unspecified] Resolved: 11-26-2016 Episodic NEGATED: Highlighted row has not occurred!Residual codes; unclassified (20 sources) Disease Episodic Results Test Name Value Interpretation Reference Range Facility Superficial Wound Cultureon 03-31-2024 Superficial Wound Culture ORGANISM: Staphylococcus aureus (O:STAAUR) Quantity of Growth Heavy Growth Aerobic NEREIDA Charge (PCMIC38) SUSCEPTIBILITY ORGANISM: O:STAAUR ANTIBIOTIC INTERPRETATION NEREIDA Azithromycin R >4 Ceftaroline S <0.5 Ciprofloxacin S <1 Clindamycin R <0.25 Daptomycin S <0.5 Levofloxacin S <1 Linezolid S 2 Oxacillin S <0.25 Penicillin S <0.03 Tetracycline S <4 Trimethoprim/Sulfamethoxazo le S <0.5 Vancomycin S 1 S = SUSCEPTIBLE I = INTERMEDIATE R = RESISTANT BLANK = DATA NOT AVAILABLE, OR DRUG NOT ADVISABLE OR TESTED R* = RESISTANCE DUE TO EXTENDED SPECTRUM BETA-LACTAMASES ESBL = EXTENDED SPECTRUM BETA-LACTAMASE TFG = THYMIDINE-DEPENDENT STRAIN TELLY = BETA-LACTAMASE POSITIVE IB = INDUCIBLE BETA-LACTAMASE. APPEARS IN PLACE OF 'S' WITH SPECIES KNOWN TO POSSESS INDUCIBLE BETA-LACTAMASES. POTENTIALLY THEY MAY BECOME RESISTANT TO ALL B-LACTAM DRUGS. PERFORMED BY: [facility] [place] [address] PATHOLOGIST TISSUE RECOVERY TECHNICIAN EUGENE MEHTA M.D. Normal [facility] Comment on above: Performed By: #### C [facility] #### [facility] [id number] [facility] THIOPURINE METABOLITES BY LC -MS/MSon 03-02-2024 6-Methylmercaptopur ine (RBC) [Entitic substance] See Note Normal <=5700 [facility] Comment on above: Result Comment: The result for 6-methylmercaptopurine is below the limit of quantification for this assay and cannot be normalized to RBC. Performed By: [facility] [address] [place] [address] Dynamite Reclaimer: Cherelle Trevizo MD, PhD [place] Number: [id number] Performed By: #### 5 8410-2 #### CORDELL KOVACS ([id number]) [facility] ([facility]) [address] [place] [address] 6-Thioguanine (RBC) [Entitic substance] See Note Normal 235-450 [facility] Comment on above: Result Comment: The result for 6-thioguanine is below the limit of quantification for this assay and cannot be normalized to RBC. INTERPRETIVE INFORMATION: Thiopurine Metabolites in RBC Thiopurine drug therapy is used to treat autoimmune diseases, inflammatory bowel disease, acute lymphoblastic leukemia, and to prevent rejection after solid organ transplant. Thiopurine drugs are metabolized to active 6-thioguanine nucleotides, which are regulated by thiopurine methyltransferase (TPMT) and nudix hydrolase 15 (NUDT15). Certain variants in the TPMT and/or NUDT15 genes can be associated with an accumulation of cytotoxic metabolites that increase the risk of drug-related toxicity with standard doses of thiopurine drugs. Thiopurine metabolites concentrations are used to assess therapeutic and toxic concentrations of thiopurine drugs. This test was developed and its performance characteristics determined by [facility]. It has not been cleared or approved by the U.S. Food and Drug Administration. This test was performed in a CLIA-certified laboratory and is intended for clinical purposes. Performed By: #### 5 8410-2 #### CORDELL KOVACS ([id number]) [facility] (EM) [address] [place] [address] Thyrotropinon 03-02-2024 TSH Qn 5.13 m[IU]/L High 0.44-3.98 [facility] Comment on above: Order Comment: TSH t esting is performed using different testing methodology at [facility] than at other physicians [facility] surgeons hospital. Direct result comparisons should only be made within the same method. Performed By: #### 5 8410-2 #### CORDELL KOVACS ([id number]) [facility] ([facility] [address] [place] [address]164 Thyroxine.freeon 03-02-2024 Free T4 [Mass/Vol] 0.97 ng/dL Normal 0.61-1.12 [facility] Comment on above: Order Comment: Thyro xine Free testing is performed using different testing methodology at [facility] than at other physicians [facility] surgeons hospital. Direct result comparisons should only be made within the same method.Biotin can cause falsely elevated free T4 results. Patients taking a Biotin dose of up to 10 mg/day should refrain from taking Biotin for 24 hours before sample collection. Patient taking a Biotin dose of >10 mg/day should consult with their physician or the laboratory before the blood draw. Performed By: #### 5 8410-2 #### CORDELL KOVACS ([id number]) [facility] ([facility] [address] [place] [address] CBC W Auto Differential pane l (Bld)on 02-16-2024 Basophils (Bld) [#/Vol] 0.04 x10*3/uL Normal 0.00-0.10 [facility] Comment on above: Performed By: #### 2 276-4 #### AR CHATMAN ([id number]) [facility] [place] [place] [address] [place] [address] Basophils/100 WBC (Bld) 0.4 % Normal 0.0-2.0 [facility] Comment on above: Performed By: #### 2 276-4 #### AR CHATMAN ([id number]) [facility] ([facility] [place] [place] [id number] [place] [address] Eosinophils (Bld) [#/Vol] 0.07 x10*3/uL Normal 0.00-0.70 [facility] Comment on above: Performed By: #### 2 276-4 #### AR CHATMAN ([id number]) [facility] [place] [place] [address] [place] [address] Eosinophils/100 WBC (Bld) 0.8 % Normal 0.0-6.0 [facility] Comment on above: Performed By: #### 2 276-4 #### AR CHATMAN ([id number]) [facility] ([facility] [place] [id number] [place] [address] Erythrocyte distribution width (RBC) [Ratio] 14.1 % Normal 11.5-14.5 [facility] Comment on above: Performed By: #### 2 276-4 #### AR CHATMAN ([id number]) [facility] ([facility] [place] [place] [id number] [place] [address] Hematocrit (Bld) [Volume fraction] 34.0 % Low 36.0-46.0 [facility] Comment on above: Performed By: #### 2 276-4 #### AR CHATMAN ([id number]) [facility] ([facility] [place] [id number] [place] [address]5827 Hemoglobin (Bld) [Mass/Vol] 10.8 g/dL Low 12.0-16.0 [facility] Comment on above: Performed By: #### 2 276-4 #### AR CAHTMAN ([id number]) [facility] [place] [place] [address] [place] [address] Immature granulocytes (Bld) [#/Vol] 0.02 x10*3/uL Normal 0.00-0.70 [facility] Comment on above: Performed By: #### 2 276-4 #### AR CHATMAN ([id number]) [facility] ([facility] [place] [id number] [place] [address]00 Immature granulocytes/100 WBC (Bld) 0.2 % Normal 0.0-0.9 [facility] Comment on above: Result Comment: Zulay ture Granulocyte Count (IG) includes promyelocytes, myelocytes and metamyelocytes but does not include bands. Percent differential counts (%) should be interpreted in the context of the absolute cell counts (cells/UL). Performed By: #### 2 276-4 #### AR CHATMAN ([id number]) [facility] ([facility] [place] [id number] [place] [address]36 Lymphocytes (Bld) [#/Vol] 2.55 x10*3/uL Normal 1.20-4.80 [facility] Comment on above: Performed By: #### 2 276-4 #### AR CHATMAN ([id number]) [facility] [place] [place] [id number] [place] [address]18 Lymphocytes/100 WBC (Bld) 27.9 % Normal 13.0-44.0 [facility] Comment on above: Performed By: #### 2 276-4 #### AR CHATMAN ([id number]) [facility] ([facility] [place] [id number] [place] [address] 48183 MCH (RBC) [Entitic mass] 26.9 pg Normal 26.0-34.0 [facility] Comment on above: Performed By: #### 2 276-4 #### AR CHATMAN ([id number]) [facility] ([facility] [place] [id number] [place] [address]2210 MCHC (RBC) [Mass/Vol] 31.8 g/dL Low 32.0-36.0 [facility] Comment on above: Performed By: #### 2 276-4 #### AR CHATMAN ([id number]) [facility] ([facility] [place] [id number] [place] [address]802 MCV (RBC) [Entitic vol] 85 fL Normal 80-100 [facility] Comment on above: Performed By: #### 2 276-4 #### AR CHATMAN ([id number]) [facility] ([facility] [place] [address] [place] [address] Monocytes (Bld) [#/Vol] 0.44 x10*3/uL Normal 0.10-1.00 [facility] Comment on above: Performed By: #### 2 276-4 #### AR CHATMAN ([id number]) [facility] ([facility] [place] [address] [place] [address] Monocytes/100 WBC (Bld) 4.8 % Normal 2.0-10.0 [facility] Comment on above: Performed By: #### 2 276-4 #### AR CHATMAN ([id number]) [facility] ([facility] [place] [id number] [place] [address] Neutrophils (Bld) [#/Vol] 6.03 x10*3/uL Normal 1.20-7.70 [facility] Comment on above: Result Comment: Perc ent differential counts (%) should be interpreted in the context of the absolute cell counts (cells/uL). Performed By: #### 2 276-4 #### AR CHATMAN ([id number]) [facility] ([facility] [place] [address] [place] [address] Neutrophils/100 WBC (Bld) 65.9 % Normal 40.0-80.0 [facility] Comment on above: Performed By: #### 2 276-4 #### AR CHATMAN ([id number]) [facility] ([facility] [place] [address] [place] [address] Platelets (Bld) [#/Vol] 265 x10*3/uL Normal 150-450 [facility] Comment on above: Performed By: #### 2 276-4 #### AR CHATMAN ([id number]) [facility] ([facility] [place] [address] [place] [address] RBC (Bld) [#/Vol] 4.02 x10*6/uL Normal 4.00-5.20 [facility] Comment on above: Performed By: #### 2 276-4 #### AR CHATMAN ([id number]) [facility] ([facility] [place] [address] [place] [address] WBC (Bld) [#/Vol] 9.2 x10*3/uL Normal 4.4-11.3 [facility] Comment on above: Performed By: #### 2 276-4 #### AR CHATMAN ([id number]) [facility] [place] [place] [address] [place] [address] Ferritinon 02-16-2024 Ferritin [Mass/Vol] 78 ng/mL Normal 8-150 [facility] Comment on above: Performed By: #### 2 276-4 #### AR CHATMAN ([id number]) [facility] ([facility] [place] [address] [place] [address] Iron and Iron binding capaci ty panelon 02-16-2024 Iron [Mass/Vol] 68 ug/dL Normal 35-150 [facility] Comment on above: Performed By: #### 2 276-4 #### AR CHATMAN ([id number]) [facility] ([facility] [place] [address] [place] [address] Iron binding capacity [Mass/Vol] 284 ug/dL Normal 240-445 [facility] Comment on above: Performed By: #### 2 276-4 #### AR CHATMAN ([id number]) [facility] [place] [place] [address] [place] [address] Iron binding capacity.unsaturate d [Mass/Vol] 216 ug/dL Normal 110-370 [facility] Comment on above: Performed By: #### 2 276-4 #### AR CHATMAN ([id number]) [facility] [place] [place] [address] [place] [address] Iron saturation [Mass fraction] 24 % Low 25-45 [facility] Comment on above: Performed By: #### 2 276-4 #### AR CHATMAN ([id number]) [facility] [place] [place] [address] [place] [address] CBC W Auto Differential pane l (Bld)on 12-14-2023 Basophils (Bld) [#/Vol] 0.03 x10*3/uL Normal 0.00-0.10 [facility] Comment on above: Performed By: #### 5 7021-8 #### AR CHATMAN ([id number]) [facility] ([facility]) [address] [place] [address] [place] [address] Basophils/100 WBC (Bld) 0.3 % Normal 0.0-2.0 [facility] Comment on above: Performed By: #### 5 7021-8 #### AR CHATMAN ([id number]) [facility] ([facility]) [address] [place] [address] [place] [address] Eosinophils (Bld) [#/Vol] 0.07 x10*3/uL Normal 0.00-0.70 [facility] Comment on above: Performed By: #### 5 7021-8 #### AR CHATMAN ([id number]) [facility] ([facility]) [address] [place] [address] [place] [address] Eosinophils/100 WBC (Bld) 0.7 % Normal 0.0-6.0 [facility] Comment on above: Performed By: #### 5 7021-8 #### AR CHATMAN ([id number]) [facility] ([facility]) [address] [place] [address] [place] [address] Erythrocyte distribution width (RBC) [Ratio] 13.5 % Normal 11.5-14.5 [facility] Comment on above: Performed By: #### 5 7021-8 #### AR CHATMAN ([id number]) [facility] ([facility]) [address] [place] [address] [place] [address] Hematocrit (Bld) [Volume fraction] 35.0 % Low 36.0-46.0 [facility] Comment on above: Performed By: #### 5 7021-8 #### AR CHATMAN ([id number]) [facility] ([facility]) [address] [place] [address] [place] [address] Hemoglobin (Bld) [Mass/Vol] 11.1 g/dL Low 12.0-16.0 [facility] Comment on above: Performed By: #### 5 7021-8 #### AR CHATMAN ([id number]) [facility] ([facility]) [address] [place] [address] [place] [address] Immature granulocytes (Bld) [#/Vol] 0.01 x10*3/uL Normal 0.00-0.70 [facility] Comment on above: Performed By: #### 5 7021-8 #### AR CHATMAN ([id number]) [facility] ([facility]) [address] [place] [address] [place] [address] Immature granulocytes/100 WBC (Bld) 0.1 % Normal 0.0-0.9 [facility] Comment on above: Result Comment: Zulay ture Granulocyte Count (IG) includes promyelocytes, myelocytes and metamyelocytes but does not include bands. Percent differential counts (%) should be interpreted in the context of the absolute cell counts (cells/UL). Performed By: #### 5 7021-8 #### AR CHATMAN ([id number]) [facility] ([facility]) [address] [place] [address] [place] [id number] Lymphocytes (Bld) [#/Vol] 2.56 x10*3/uL Normal 1.20-4.80 [facility] Comment on above: Performed By: #### 5 7021-8 #### AR CHATMAN ([id number]) [facility] ([facility]) [address] [place] [address] [place] [address] Lymphocytes/100 WBC (Bld) 25.0 % Normal 13.0-44.0 [facility] Comment on above: Performed By: #### 5 7021-8 #### AR CHATMAN ([id number]) [facility] [facility] ([facility]) [address] [place] [address] [place] [id number] MCH (RBC) [Entitic mass] 27.2 pg Normal 26.0-34.0 [facility] Comment on above: Performed By: #### 5 7021-8 #### AR CHATMAN ([id number]) [facility] ([facility]) [address] [place] [address] [place] [address] MCHC (RBC) [Mass/Vol] 31.7 g/dL Low 32.0-36.0 [facility] Comment on above: Performed By: #### 5 7021-8 #### AR CHATMAN ([id number]) [facility] ([facility]) [address] [place] [address] [place] 42447 MCV (RBC) [Entitic vol] 86 fL Normal 80-100 [facility] Comment on above: Performed By: #### 5 7021-8 #### AR CHATMAN ([id number]) [facility] ([facility]) [address] [place] [address] [place] 02110 Monocytes (Bld) [#/Vol] 0.46 x10*3/uL Normal 0.10-1.00 [facility] Comment on above: Performed By: #### 5 7021-8 #### AR CHATMAN ([id number]) [facility] ([facility]) [address] [place] [address] [place] 37565 Monocytes/100 WBC (Bld) 4.5 % Normal 2.0-10.0 [facility] Comment on above: Performed By: #### 5 7021-8 #### AR CHATMAN ([id number]) [facility] ([facility]) [address] [place] [address] [place] 87450 Neutrophils (Bld) [#/Vol] 7.12 x10*3/uL Normal 1.20-7.70 [facility] Comment on above: Result Comment: Perc ent differential counts (%) should be interpreted in the context of the absolute cell counts (cells/uL). Performed By: #### 5 7021-8 #### AR CHATMAN ([id number]) [facility] ([facility]) [address] [place] [address] [place] 26170 Neutrophils/100 WBC (Bld) 69.4 % Normal 40.0-80.0 [facility] Comment on above: Performed By: #### 5 7021-8 #### AR CHATMAN ([id number]) [facility] ([facility]) [address] [place] [address] [place] 03721 Platelets (Bld) [#/Vol] 270 x10*3/uL Normal 150-450 [facility] Comment on above: Performed By: #### 5 7021-8 #### AR CHATMAN ([id number]) [facility] ([facility]) [address] [place] [address] [place] 97422 RBC (Bld) [#/Vol] 4.08 x10*6/uL Normal 4.00-5.20 [facility] Comment on above: Performed By: #### 5 7021-8 #### AR CHATMAN ([id number]) [facility] ([facility]) [address] [place] [address] [place] 22515 WBC (Bld) [#/Vol] 10.3 x10*3/uL Normal 4.4-11.3 [facility] Comment on above: Performed By: #### 5 7021-8 #### AR CHATMAN ([id number]) [facility] ([facility]) [address] [place] [address] [place] 47326 Cobalaminson 12-14-2023 Cobalamin (Vitamin B12) [Mass/Vol] 437 pg/mL Normal 211-911 [facility] Comment on above: Performed By: #### 2 276-4 #### AR CHATMAN ([id number]) [facility] [place] [place] [address] [address] [place] [address] Comprehensive metabolic 2000 panelon 12-14-2023 Albumin BCP dye [Mass/Vol] 4.0 g/dL Normal 3.4-5.0 [facility] Comment on above: Performed By: #### 2 4323-8 #### AR CHATMAN ([id number]) [facility] ([facility]) [address] [place] [address] [place] 44371 ALP [Catalytic activity/Vol] 46 U/L Normal 33-110 [facility] Comment on above: Performed By: #### 2 4323-8 #### AR CHATMAN ([id number]) [facility] ([facility]) [address] [place] [address] [place] [address] ALT With P-5'-P [Catalytic activity/Vol] 10 U/L Normal 7-45 [facility] Comment on above: Result Comment: Sridevi ents treated with Sulfasalazine may generate falsely decreased results for ALT. Performed By: #### 2 4323-8 #### AR CHATMAN ([id number]) [facility] ([facility]) [address] [place] [address] [place] 80758 Anion gap [Moles/Vol] 12 mmol/L Normal 10-20 [facility] Comment on above: Performed By: #### 2 4323-8 #### AR CHATMAN ([id number]) [facility] ([facility]) [address] [place] [address] [place] 12608 AST With P-5'-P [Catalytic activity/Vol] 13 U/L Normal 9-39 [facility] Comment on above: Performed By: #### 2 4323-8 #### AR CHATMAN ([id number]) [facility] ([facility]) [address] [place] [address] [place] 49776 Bilirubin [Mass/Vol] 0.3 mg/dL Normal 0.0-1.2 [facility] Comment on above: Performed By: #### 2 4323-8 #### AR CHATMAN ([id number]) [facility] ([facility]) [address] [place] [address] [place] 34524 Calcium [Mass/Vol] 9.0 mg/dL Normal 8.6-10.3 [facility] Comment on above: Performed By: #### 2 4323-8 #### AR CHATMAN ([id number]) [facility] ([facility]) [address] [place] [address] [place] [address] Chloride [Moles/Vol] 105 mmol/L Normal 98-107 [facility] Comment on above: Performed By: #### 2 4323-8 #### AR CHATMAN ([id number]) [facility] ([facility]) [address] [place] [address] [place] [address]27 CO2 [Moles/Vol] 26 mmol/L Normal 21-32 [facility] Comment on above: Performed By: #### 2 4323-8 #### AR CHATMAN ([id number]) [facility] ([facility]) [address] [place] [address] [place] [address]2906 Creatinine [Mass/Vol] 0.88 mg/dL Normal 0.50-1.05 [facility] Comment on above: Performed By: #### 2 4323-8 #### AR CHATMAN ([id number]) [facility] ([facility]) [address] [place] [address] [place] [address]165 Glomerular filtration rate/1.73 sq M.predicted 89 mL/min/1.73m*2 Normal >60 [facility] Comment on above: Result Comment: Calc ulations of estimated GFR are performed using the 2020 CKD-EPI Study Refit equation without the race variable for the IDMS-Traceable creatinine methods. https://jasn.asnjournals.org/content//ASN.95120679 88 Performed By: #### 2 4323-8 #### AR CHATMAN ([id number]) [facility] ([facility]) [address] [place] [address] [place] [address] Glucose [Mass/Vol] 98 mg/dL Normal 74-99 [facility] Comment on above: Performed By: #### 2 432-8 #### AR CHATMAN ([id number]) [facility] ([facility]) [address] [place] [address] [place] [address] Potassium [Moles/Vol] 3.6 mmol/L Normal 3.5-5.3 [facility] Comment on above: Performed By: #### 2 432-8 #### AR CHATMAN ([id number]) [facility] ([facility]) [address] [place] [address] [place] [address] Protein [Mass/Vol] 7.9 g/dL Normal 6.4-8.2 [facility] Comment on above: Performed By: #### 2 432-8 #### AR CHATMAN ([id number]) [facility] ([facility]) [address] [place] [address] [place] [address] Sodium [Moles/Vol] 139 mmol/L Normal 136-145 [facility] Comment on above: Performed By: #### 2 4323-8 #### AR CHATMAN ([id number]) [facility] ([facility]) [address] [place] [address] [place] [address] Urea nitrogen [Mass/Vol] 9 mg/dL Normal 6-23 [facility] Comment on above: Performed By: #### 2 4323-8 #### AR CHATMAN ([id number]) [facility] ([facility]) [address] [place] [address] [place] [address] Ferritinon 12-14-2023 Ferritin [Mass/Vol] 75 ng/mL Normal 8-150 [facility] Comment on above: Performed By: #### 2 276-4 #### AR CHATMAN ([id number]) [facility] [place] [place] [address] [place] [address] Iron and Iron binding capaci ty panelon 12-14-2023 Iron [Mass/Vol] 39 ug/dL Normal 35-150 [facility] Comment on above: Performed By: #### 2 276-4 #### AR CHATMAN ([id number]) [facility] [place] [place] [address] [place] [address] Iron binding capacity [Mass/Vol] 325 ug/dL Normal 240-445 [facility] Comment on above: Performed By: #### 2 276-4 #### RA CHATMAN ([id number]) [facility] ([facility] [place] [id number] [place] [address] Iron binding capacity.unsaturate d [Mass/Vol] 286 ug/dL Normal 110-370 [facility] Comment on above: Performed By: #### 2 276-4 #### AR CHATMAN ([id number]) [facility] [place] [place] [place] [address] [place] [address] Iron saturation [Mass fraction] 12 % Low 25-45 [facility] Comment on above: Performed By: #### 2 276-4 #### AR CHATMAN ([id number]) [facility] ([facility] [place] [place] [id number] [place] [address] TSH WITH REFLEX TO FREE T4 I F ABNORMALon 12-11-2023 TSH Qn 11.17 m[IU]/L High 0.44-3.98 [facility] Comment on above: Order Comment: TSH t esting is performed using different testing methodology at [facility] than at other [facility]. Direct result comparisons should only be made within the same method. Performed By: #### T MARIYAS #### CORDELL KOVACS ([id number]) [facility] ([facility]) [address] [place] [address] Thyroxine.freeon 12-11-2023 Free T4 [Mass/Vol] 0.81 ng/dL Normal 0.61-1.12 [facility] Comment on above: Order Comment: Thyro xine Free testing is performed using different testing methodology at [facility] than at other [facility]. Direct result comparisons should only be made within the same method. Biotin can cause falsely elevated free T4 results. Patients taking a Biotin dose of up to 10 mg/day should refrain from taking Biotin for 24 hours before sample collection. Patient taking a Biotin dose of >10 mg/day should consult with their physician or the laboratory before the blood draw. Performed By: #### 3 024-7 #### CORDELL KOVACS ([id number]) [facility] ([facility]) [address] [place] [address] Comprehensive metabolic 2000 panelon 10-10-2023 Albumin BCP dye [Mass/Vol] 3.9 g/dL Normal 3.4-5.0 [facility] Comment on above: Performed By: #### 5 8410-2 #### CORDELL KOVACS ([id number]) [facility] ([facility]) [address] [place] [address] 22090 ALP [Catalytic activity/Vol] 47 U/L Normal 33-110 [facility] Comment on above: Performed By: #### 5 8410-2 #### CORDELL KOVACS ([id number]) [facility] ([facility]) [address] [place] [address] 21565 ALT With P-5'-P [Catalytic activity/Vol] 10 U/L Normal 7-45 [facility] Comment on above: Result Comment: Sridevi ents treated with Sulfasalazine may generate falsely decreased results for ALT. Performed By: #### 5 8410-2 #### CORDELL KOVACS ([id number]) [facility] ([facility]) [address] [place] [address] 35676 Anion gap [Moles/Vol] 12 mmol/L Normal 10-20 [facility] Comment on above: Performed By: #### 5 8410-2 #### CORDELL KOVACS ([id number]) [facility] ([facility]) [address] [place] [address] 66726 AST With P-5'-P [Catalytic activity/Vol] 13 U/L Normal 9-39 [facility] Comment on above: Performed By: #### 5 8410-2 #### CORDELL KOVACS ([id number]) [facility] ([facility]) [address] [place] [address] 18117 Bilirubin [Mass/Vol] 0.4 mg/dL Normal 0.0-1.2 [facility] Comment on above: Performed By: #### 5 8410-2 #### CORDELL KOVACS ([id number]) [facility] ([facility]) [address] [place] [address] 09368 Calcium [Mass/Vol] 8.8 mg/dL Normal 8.6-10.3 [facility] Comment on above: Performed By: #### 5 8410-2 #### CORDELL KOVACS ([id number]) [facility] ([facility]) [address] [place] [address] 53825 Chloride [Moles/Vol] 106 mmol/L Normal 98-107 [facility] Comment on above: Performed By: #### 5 8410-2 #### CORDELL KOVACS ([id number]) [facility] ([facility]) [address] [place] [address] 03756 CO2 [Moles/Vol] 25 mmol/L Normal 21-32 [facility] Comment on above: Performed By: #### 5 8410-2 #### CORDELL KOVACS ([id number]) [facility] ([facility]) [address] [place] [address] 82698 Creatinine [Mass/Vol] 0.85 mg/dL Normal 0.50-1.05 [facility] Comment on above: Performed By: #### 5 8410-2 #### CORDELL KOVACS ([id number]) [facility] ([facility]) [address] [place] [address] 20321 GFR/1.73 sq M.predicted MDRD (S/P/Bld) [Vol rate/Area] mL/min/{1.73_m2} Normal >60 [facility] Comment on above: Result Comment: Calc ulations of estimated GFR are performed using the 2020 CKD-EPI Study Refit equation without the race variable for the IDMS-Traceable creatinine methods. https://jasn.asnjournals.org/content//ASN.05320221 88 Performed By: #### 5 8410-2 #### CORDELL KOVACS ([id number]) [facility] ([facility]) [address] [place] [address] 53245 Glucose [Mass/Vol] 86 mg/dL Normal 74-99 [facility] Comment on above: Performed By: #### 5 8410-2 #### RUBIIBJAIDEN KOVACS ([id number]) [facility] ([facility]) [address] [place] [address] 83245 Potassium [Moles/Vol] 3.8 mmol/L Normal 3.5-5.3 [facility] Comment on above: Performed By: #### 5 8410-2 #### RUBIIBELIMONTANA JULIANE TAWNY ([id number]) [facility] ([facility]) [address] [place] [address] 58902 Protein [Mass/Vol] 7.4 g/dL Normal 6.4-8.2 [facility] Comment on above: Performed By: #### 5 8410-2 #### RUBIIBJAIDEN DO RIO TAWNY ([id number]) [facility] ([facility]) [address] [place] [address] 74038 Sodium [Moles/Vol] 139 mmol/L Normal 136-145 [facility] Comment on above: Performed By: #### 5 8410-2 #### ANAIBELIMONTANA JULIANE TAWNY ([id number]) [facility] ([facility]) [address] [place] [address] 58230 Urea nitrogen [Mass/Vol] 11 mg/dL Normal 6-23 [facility] Comment on above: Performed By: #### 5 8410-2 #### RUBIIBELIMONTANA JULIANE TAWNY ([id number]) [facility] ([facility]) [address] [place] [address] 91528 Lipid 1996 panelon 4 Cholesterol [Mass/Vol] 157 mg/dL Normal 0-199 [facility] Comment on above: Result Comment: Age Desirable Borderline High High 0-19 Y 0 - 169 170 - 199 >/= 200 20-24 Y 0 - 189 190 - 224 >/= 225 >24 Y 0 - 199 200 - 239 >/= 240 All ranges are based on fasting samples. Specific therapeutic targets will vary based on patient-specific cardiac risk. Pediatric guidelines reference:Pediatrics 2011, 128(S5).Adult guidelines reference: NCEP ATPIII Guidelines,JASVIR 2001, 258:2486-97 Venipuncture immediately after or during the administration of Metamizole may lead to falsely low results. Testing should be performed immediately prior to Metamizole dosing. Performed By: #### 5 8410-2 #### CORDELL KOVACS ([id number]) [facility] ([facility] [address] [place] [address] 25489 Cholesterol in HDL [Mass/Vol] 58.5 mg/dL Normal [facility] Comment on above: Result Comment: Age Very Low Low Normal High 0-19 Y < 35 < 40 40-45 ---- 20-24 Y ---- < 40 >45 ---- >24 Y ---- < 40 40-60 >60 Performed By: #### 5 8410-2 #### CORDELL KOVACS ([id number]) [facility] ([facility]) [address] [place] [address] Cholesterol in LDL [Mass/Vol] 85 mg/dL Normal <=99 [facility] Comment on above: Result Comment: Near Borderline AGE Desirable Optimal High High Very High 0-19 Y 0 - 109 --- 110-129 >/= 130 ---- 20-24 Y 0 - 119 --- 120-159 >/= 160 ---- >24 Y 0 - 99 100-129 130-159 160-189 >/=190 Performed By: #### 5 8410-2 #### CORDELL KOVACS ([id number]) [facility] ([facility]) [address] [place] [address] 41137 Cholesterol in VLDL [Mass/Vol] 13 mg/dL Normal 0-40 [facility] Comment on above: Performed By: #### 5 8410-2 #### CORDELL KOVACS ([id number]) [facility] ([facility]) [address] [place] [address] 19505 CHOLESTEROL/HDL RATIO 2.7 Normal [facility] Comment on above: Result Comment: Ref Values Desirable < 3.4 High Risk > 5.0 Performed By: #### 5 8410-2 #### CORDELL KOVACS ([id number]) [facility] ([facility]) [address] [place] [address] 28826 NON HDL CHOLESTEROL 99 mg/dL Normal 0-149 [facility] Comment on above: Result Comment: Age Desirable Borderline High High Very High 0-19 Y 0 - 119 120 - 144 >/= 145 >/= 160 20-24 Y 0 - 149 150 - 189 >/= 190 ---- >24 Y 30 mg/dL above LDL Cholesterol goal Performed By: #### 5 8410-2 #### CORDELL KOVACS ([id number]) [facility] ([facility]) [address] [place] [address] 54847 Triglyceride [Mass/Vol] 67 mg/dL Normal 0-149 [facility] Comment on above: Result Comment: Age Desirable Borderline High High Very High 0 D-90 D 19 - 174 ---- ---- ---- 91 D- 9 Y 0 - 74 75 - 99 >/= 100 ---- 10-19 Y 0 - 89 90 - 129 >/= 130 ---- 20-24 Y 0 - 114 115 - 149 >/= 150 ---- >24 Y 0 - 149 150 - 199 200- 499 >/= 500 Venipuncture immediately after or during the administration of Metamizole may lead to falsely low results. Testing should be performed immediately prior to Metamizole dosing. Performed By: #### 5 8410-2 #### CORDELL KOVACS ([id number]) [facility] ([facility]) [address] [place] [address] 48360 TPMT ENZYMESon 10-10-2023 Thiopurine methyltransferase (Bld) [Catalytic activity/Vol] 20.0 U/mL Low 24.0-44.0 [facility] Comment on above: Result Comment: INTE RPRETIVE INFORMATION: Thiopurine Methyltransferase, RBC Normal TPMT activity: 24.0-44.0 U/mL................Individuals are predicted to be at low risk of bone marrow toxicity (myelosuppression) as a consequence of standard thiopurine therapy; no dose adjustment is recommended. Intermediate TPMT activity: 17.0-23.9 U/mL................Individuals are predicted to be at intermediate risk of bone marrow toxicity (myelosuppression) as a consequence of standard thiopurine therapy; a dose reduction and therapeutic drug management is recommended. Low TPMT activity: less than 17.0 U/mL...........Individuals are predicted to be at high risk of bone marrow toxicity (myelosuppression) as a consequence of standard thiopurine dosing. It is recommended to avoid the use of thiopurine drugs. High TPMT activity: greater than 44.0 U/mL........Individuals are not predicted to be at risk for bone marrow toxicity (myelosuppression) as a consequence of standard thiopurine dosing, but may be at risk for therapeutic failure due to excessive inactivation of thiopurine drugs. Individuals may require higher than the normal standard dose. Therapeutic drug management is recommended. The TPMT, RBC assay is used as a screen to detect individuals with low and intermediate TPMT activity who may be at risk for myelosuppression when exposed to standard doses of thiopurines, including azathioprine (Imuran) and 6-mercaptopurine (Purinethol). TPMT is the primary metabolic route for inactivation of thiopurine drugs in the bone marrow. When TPMT activity is low, it is predicted that proportionately more 6-mercaptopurine can be converted into the cytotoxic 6-thioguanine nucleotides that accumulate in the bone marrow causing excessive toxicity. The activity of TPMT is measured by the nanomoles of 6-methylmercaptopurine (inactive metabolite) produced per 1 mL of packed red blood cells, (U/mL). TPMT phenotype testing does not replace the need for clinical monitoring of patients treated with thiopurine drugs. Genotype for TPMT cannot be inferred from TPMT activity (phenotype). Phenotype testing should not be requested for patients currently treated with thiopurine drugs. Current TPMT phenotype may not reflect future TPMT phenotype, particularly in patients who received blood transfusion within 30-60 days of testing. TPMT enzyme activity can be inhibited by several drugs such as: naproxen (Aleve), ibuprofen (Advil, Motrin), ketoprofen (Orudis), furosemide (Lasix), sulfasalazine (Azulfidine), mesalamine (Asacol), olsalazine (Dipentum), mefenamic acid (Ponstel), thiazide diuretics, and benzoic acid inhibitors. TPMT inhibitors may contribute to falsely low results; patients should abstain from these drugs for at least 48 hours prior to TPMT testing. Falsely low results may also occur as a result of inappropriate specimen handling and hemolysis. This test was developed and its performance characteristics determined by [facility]. It has not been cleared or approved by the [place] Food and Drug Administration. This test was performed in a CLIA certified laboratory and is intended for clinical purposes. Performed By: [facility] [address] [place] [address] Dynamite Reclaimer: Cherelle Trevioz MD, PhD [facility] Number: [id number] Performed By: #### 5 8410-2 #### CORDELL KOVACS ([id number]) [facility] ([facility] [address] [place] [address] 47355 TSH WITH REFLEX TO FREE T4 I F ABNORMALon 10-10-2023 TSH Qn 5.50 m[IU]/L High 0.44-3.98 [facility] Comment on above: Order Comment: TSH t esting is performed using different testing methodology at [facility] than at other [facility]. Direct result comparisons should only be made within the same method. Performed By: #### 5 8410-2 #### CORDELL KOVACS ([id number]) [facility] ([facility] [address] [place] [address] 82618 Thyroxine.freeon 10-10-2023 Free T4 [Mass/Vol] 0.98 ng/dL Normal 0.61-1.12 [facility] Comment on above: Order Comment: Thyro xine Free testing is performed using different testing methodology at [facility] than at other [facility]. Direct result comparisons should only be made within the same method.Biotin can cause falsely elevated free T4 results. Patients taking a Biotin dose of up to 10 mg/day should refrain from taking Biotin for 24 hours before sample collection. Patient taking a Biotin dose of >10 mg/day should consult with their physician or the laboratory before the blood draw. Performed By: #### 5 8410-2 #### CORDELL KOVACS ([id number]) [facility] ([facility] [address] [place] [address] 41700 CBC W Auto Differential pane l (Bld)on 09-15-2023 Basophils (Bld) [#/Vol] 0.08 x10*3/uL Normal 0.00-0.10 [facility] Comment on above: Performed By: #### 5 7021-8 #### ELIEL Desai ([id number]) [facility] ([facility]) [id number] [place] [address] 16522 Basophils/100 WBC (Bld) 0.8 % Normal 0.0-2.0 [facility] Comment on above: Performed By: #### 5 7021-8 #### ELIEL GIRFFITHMOTZER L ([id number]) [facility] ([facility]) [id number] [place] [address] 01766 Eosinophils (Bld) [#/Vol] 0.06 x10*3/uL Normal 0.00-0.70 [facility] Comment on above: Performed By: #### 5 7021-8 #### ELIEL GRIFFITHMOTZER L ([id number]) [facility] ([facility]) [address] [place] [address] Eosinophils/100 [facility] (Bld) 0.6 % Normal 0.0-6.0 [facility] Comment on above: Performed By: #### 5 7021-8 #### ELIEL GRIFFITHMOTZER L ([id number]) [facility] ([facility]) [address] [place] [address] 36433 Erythrocyte distribution width (RBC) [Ratio] 14.9 % High 11.5-14.5 [facility] Comment on above: Performed By: #### 5 7021-8 #### ELIEL Desai ([id number]) [facility] ([facility]) [address] [place] [address] 97777 Hematocrit (Bld) [Volume fraction] 38.6 % Normal 36.0-46.0 [facility] Comment on above: Performed By: #### 5 7021-8 #### ELIEL Desai ([id number]) [facility] ([facility]) [address] [place] [address] 58546 Hemoglobin (Bld) [Mass/Vol] 11.2 g/dL Low 12.0-16.0 [facility] Comment on above: Performed By: #### 5 7021-8 #### ELIEL Desai ([id number]) [facility] ([facility]) [address] [place] [address] 68717 Immature granulocytes (Bld) [#/Vol] 0.02 x10*3/uL Normal 0.00-0.70 [facility] Comment on above: Performed By: #### 5 7021-8 #### ELIEL Desai ([id number]) [facility] ([facility]) [address] [place] [address] 81890 Immature granulocytes/100 WBC (Bld) 0.2 % Normal 0.0-0.9 [facility] Comment on above: Result Comment: Zulay ture Granulocyte Count (IG) includes promyelocytes, myelocytes and metamyelocytes but does not include bands. Percent differential counts (%) should be interpreted in the context of the absolute cell counts (cells/UL). Performed By: #### 5 7021-8 #### ELIEL Desai ([id number]) [facility] ([facility]) [address] [place] [address] 22779 Lymphocytes (Bld) [#/Vol] 2.94 x10*3/uL Normal 1.20-4.80 [facility] Comment on above: Performed By: #### 5 7021-8 #### ELIEL Desai ([id number]) [facility] ([facility]) [address] [place] [address] 58280 Lymphocytes/100 WBC (Bld) 30.4 % Normal 13.0-44.0 [facility] Comment on above: Performed By: #### 5 7021-8 #### ELIEL COOK L ([id number]) [facility] ([facility]) [address] [place] [address] 35044 MCH (RBC) [Entitic mass] 26.5 pg Normal 26.0-34.0 [facility] Comment on above: Performed By: #### 5 7021-8 #### ELIEL Desai ([id number]) [facility] ([facility]) [address] [place] [address] 14364 MCHC (RBC) [Mass/Vol] 29.0 g/dL Low 32.0-36.0 [facility] Comment on above: Performed By: #### 5 7021-8 #### ELIEL Desai ([id number]) [facility] ([facility]) [address] [place] [address] 48096 MCV (RBC) [Entitic vol] 92 fL Normal 80-100 [facility] Comment on above: Performed By: #### 5 7021-8 #### ELIEL Desai ([id number]) [facility] ([facility]) [address] [place] [address] 28984 Monocytes (Bld) [#/Vol] 0.48 x10*3/uL Normal 0.10-1.00 [facility] Comment on above: Performed By: #### 5 7021-8 #### ELIEL COOK L ([id number]) [facility] ([facility]) [address] [place] [address] 05331 Monocytes/100 WBC (Bld) 5.0 % Normal 2.0-10.0 [facility] Comment on above: Performed By: #### 5 7021-8 #### ELIEL Desai ([id number]) [facility] ([facility]) [address] [place] [address] 26480 Neutrophils (Bld) [#/Vol] 6.10 x10*3/uL Normal 1.20-7.70 [facility] Comment on above: Result Comment: Perc ent differential counts (%) should be interpreted in the context of the absolute cell counts (cells/uL). Performed By: #### 5 7021-8 #### ELIEL OCOK L ([id number]) [facility] ([facility]) [address] [place] [address] Neutrophils/100 WBC (Bld) 63.0 % Normal 40.0-80.0 [facility] Comment on above: Performed By: #### 5 7021-8 #### ELIEL COOK L ([id number]) [facility] ([facility]) [address] [place] [address] Nucleated RBC/100 WBC (Bld) [Ratio] 0.0 /100 WBCs Normal 0.0-0.0 [facility] Comment on above: Performed By: #### 5 7021-8 #### ELIEL GRIFFITHMOTZDEBBIE L ([id number]) [facility] ([facility]) [address] [place] [address] Platelets (Bld) [#/Vol] 283 x10*3/uL Normal 150-450 [facility] Comment on above: Performed By: #### 5 7021-8 #### ELIEL COOK L ([id number]) [facility] ([facility]) [address] [place] [address] RBC (Bld) [#/Vol] 4.22 x10*6/uL Normal 4.00-5.20 [facility] Comment on above: Performed By: #### 5 7021-8 #### ELIEL GRIFFITHMOTZDEBBIE L ([id number]) [facility] ([facility]) [address] [place] [address] WBC (Bld) [#/Vol] 9.7 x10*3/uL Normal 4.4-11.3 [facility] Comment on above: Performed By: #### 5 7021-8 #### ELIEL Desai ([id number]) [facility] ([facility]) [address] [place] [address] 70328 Comprehensive metabolic 2000 panelon 09-15-2023 Albumin BCP dye [Mass/Vol] 3.9 g/dL Normal 3.4-5.0 [facility] Comment on above: Performed By: #### 2 4323-8 #### ELIEL Desai ([id number]) [facility] ([facility]) [address] [place] [address] 82544 ALP [Catalytic activity/Vol] 50 U/L Normal 33-110 [facility] Comment on above: Performed By: #### 2 4323-8 #### ELIEL Desai ([id number]) [facility] ([facility]) [address] [place] [address] 43355 ALT With P-5'-P [Catalytic activity/Vol] 12 U/L Normal 7-45 [facility] Comment on above: Result Comment: Sridevi ents treated with Sulfasalazine may generate falsely decreased results for ALT. Performed By: #### 2 4323-8 #### ELIEL Desai ([id number]) [facility] ([facility]) [address] [place] [address] 62157 Anion gap [Moles/Vol] 13 mmol/L Normal 10-20 [facility] Comment on above: Performed By: #### 2 4323-8 #### ELIEL Desai ([id number]) [facility] ([facility]) [address] [place] [address] 67708 AST With P-5'-P [Catalytic activity/Vol] 15 U/L Normal 9-39 [facility] Comment on above: Performed By: #### 2 4323-8 #### ELIEL Desai ([id number]) [facility] ([facility]) [address] [place] [address] 94311 Bilirubin [Mass/Vol] 0.3 mg/dL Normal 0.0-1.2 [facility] Comment on above: Performed By: #### 2 4323-8 #### ELIEL Desai ([id number]) [facility] ([facility]) [address] [place] [address] Calcium [Mass/Vol] 8.7 mg/dL Normal 8.6-10.6 [facility] Comment on above: Performed By: #### 2 4323-8 #### ELIEL Desai ([id number]) [facility] ([facility]) [address] [place] [address] Chloride [Moles/Vol] 104 mmol/L Normal 98-107 [facility] Comment on above: Performed By: #### 2 4323-8 #### ELIEL Desai ([id number]) [facility] ([facility]) [address] [place] [address] CO2 [Moles/Vol] 25 mmol/L Normal 21-32 [facility] Comment on above: Performed By: #### 2 4323-8 #### ELIEL Desai ([id number]) [facility] ([facility]) [address] [place] [address] Creatinine [Mass/Vol] 0.80 mg/dL Normal 0.50-1.05 [facility] Comment on above: Performed By: #### 2 4323-8 #### ELIEL Desai ([id number]) [facility] ([facility]) [address] [place] [address] 60593 GFR/1.73 sq M.predicted MDRD (S/P/Bld) [Vol rate/Area] mL/min/{1.73_m2} Normal >60 [facility] Comment on above: Result Comment: Calc ulations of estimated GFR are performed using the 2020 CKD-EPI Study Refit equation without the race variable for the IDMS-Traceable creatinine methods. https://jasn.asnjournals.org/content//ASN.57195167 88 Performed By: #### 2 4323-8 #### ELIEL Desai ([id number]) [facility] ([facility]) [address] [place] [address] Glucose [Mass/Vol] 93 mg/dL Normal 74-99 [facility] Comment on above: Performed By: #### 2 4323-8 #### ELIEL Desai ([id number]) [facility] ([facility]) [address] [place] [address] 67123 Potassium [Moles/Vol] 3.9 mmol/L Normal 3.5-5.3 [facility] Comment on above: Performed By: #### 2 4323-8 #### ELIEL Desai ([id number]) [facility] ([facility]) [address] [place] [address] 85578 Protein [Mass/Vol] 7.6 g/dL Normal 6.4-8.2 [facility] Comment on above: Performed By: #### 2 4323-8 #### ELIEL Desai ([id number]) [facility] ([facility]) [address] [place] [address] 47227 Sodium [Moles/Vol] 138 mmol/L Normal 136-145 [facility] Comment on above: Performed By: #### 2 4323-8 #### ELIEL Desai ([id number]) [facility] ([facility]) [address] [place] [address] 15737 Urea nitrogen [Mass/Vol] 10 mg/dL Normal 6-23 [facility] Comment on above: Performed By: #### 2 4323-8 #### ELIEL Desai ([id number]) [facility] ([facility]) [address] [place] [address] 62355 Ferritinon 09-15-2023 Ferritin [Mass/Vol] 94 ng/mL Normal 8-150 [facility] Comment on above: Performed By: #### 2 276-4 #### ELIEL Desai ([id number]) [facility] ([facility]) [address] [place] [address] 89895 Iron and Iron binding capaci ty panelon 09-15-2023 Iron [Mass/Vol] 76 ug/dL Normal 35-150 [facility] Comment on above: Performed By: #### 5 8410-2 #### CORDELL KOVACS ([id number]) [facility] ([facility]) [address] [place] [address] 50891 Iron binding capacity [Mass/Vol] 321 ug/dL Normal 240-445 [facility] Comment on above: Performed By: #### 5 8410-2 #### CORDELL KOVACS ([id number]) [facility] ([facility]) [address] [place] [address] 85622 Iron binding capacity.unsaturate d [Mass/Vol] 245 ug/dL Normal 110-370 [facility] Comment on above: Performed By: #### 5 8410-2 #### CORDELL KOVACS ([id number]) [facility] ([facility]) [address] [place] [address] 78597 Iron saturation [Mass fraction] 24 % Low 25-45 [facility] Comment on above: Performed By: #### 5 8410-2 #### CORDELL KOVACS ([id number]) [facility] ([facility]) [address] [place] [address] 53373 THIOPURINE METABOLITES BY LC -MS/MSon 09-15-2023 6-Methylmercaptopur ine (RBC) [Entitic substance] See Note Normal <=5700 [facility] Comment on above: Result Comment: The result for 6-methylmercaptopurine is below the limit of quantification for this assay and cannot be normalized to RBC Performed By: [facility] [address] [place] [address] 76666 Dynamite Reclaimer: Cherelle Trevizo MD, PhD CLIA Number: [id number] Performed By: #### 5 8410-2 #### CORDELL KOVACS ([id number]) [facility] ([facility]) [address] [place] [address] 52597 6-Thioguanine (RBC) [Entitic substance] 150 pmol/8x10(8)RBC Low 235-450 [facility] Comment on above: Result Comment: INTE RPRETIVE INFORMATION: Thiopurine Metabolites in RBC Thiopurine drug therapy is used to treat autoimmune diseases, inflammatory bowel disease, acute lymphoblastic leukemia, and to prevent rejection after solid organ transplant. Thiopurine drugs are metabolized to active 6-thioguanine nucleotides, which are regulated by thiopurine methyltransferase (TPMT) and nudix hydrolase 15 (NUDT15). Certain variants in the TPMT and/or NUDT15 genes can be associated with an accumulation of cytotoxic metabolites that increase the risk of drug-related toxicity with standard doses of thiopurine drugs. Thiopurine metabolites concentrations are used to assess therapeutic and toxic concentrations of thiopurine drugs. This test was developed and its performance characteristics determined by [facility]. It has not been cleared or approved by the U.S. Food and Drug Administration. This test was performed in a CLIA-certified laboratory and is intended for clinical purposes. Performed By: #### 5 8410-2 #### CORDELL KOVACS ([id number]) [facility] ([facility]) [address] [place] [address] 53841 C reactive proteinon 024 CRP [Mass/Vol] 1.10 mg/dL High <1.00 [facility] Comment on above: Performed By: #### 1 988-5 #### CORDELL KOVACS ([id number]) [facility] ([facility]) [address] [place] [address] 76175 CBC panel Auto (Bld)on 08-31 Erythrocyte distribution width (RBC) [Ratio] 14.6 % High 11.5-14.5 [facility] Comment on above: Performed By: #### 5 8410-2 #### CORDELL KOVACS ([id number]) [facility] ([facility]) [address] [place] [address] 75421 Hematocrit (Bld) [Volume fraction] 35.8 % Low 36.0-46.0 [facility] Comment on above: Performed By: #### 5 8410-2 #### CORDELL KOVACS ([id number]) [facility] ([facility]) [address] [place] [address] 56584 Hemoglobin (Bld) [Mass/Vol] 11.3 g/dL Low 12.0-16.0 [facility] Comment on above: Performed By: #### 5 8410-2 #### CORDELL KOVACS ([id number]) [facility] ([facility]) [address] [place] [address] MCH (RBC) [Entitic mass] 27.2 pg Normal 26.0-34.0 [facility] Comment on above: Performed By: #### 5 8410-2 #### CORDELL KOVACS ([id number]) [facility] ([facility]) [address] [place] [address] MCHC (RBC) [Mass/Vol] 31.6 g/dL Low 32.0-36.0 [facility] Comment on above: Performed By: #### 5 8410-2 #### CORDELL KOVACS ([id number]) [facility] ([facility]) [address] [place] [address] MCV (RBC) [Entitic vol] 86 fL Normal 80-100 [facility] Comment on above: Performed By: #### 5 8410-2 #### CORDELL KOVACS ([id number]) [facility] ([facility]) [address] [place] [address] Nucleated RBC/100 WBC (Bld) [Ratio] 0.0 /100 WBCs Normal 0.0-0.0 [facility] Comment on above: Performed By: #### 5 8410-2 #### CORDELL KOVACS ([id number]) [facility] ([facility]) [address] [place] [address] Platelets (Bld) [#/Vol] 276 x10*3/uL Normal 150-450 [facility] Comment on above: Performed By: #### 5 8410-2 #### CORDELL KOVACS ([id number]) [facility] ([facility]) [address] [place] [address] RBC (Bld) [#/Vol] 4.16 x10*6/uL Normal 4.00-5.20 [facility] Comment on above: Performed By: #### 5 8410-2 #### CORDELL KOVACS ([id number]) [facility] ([facility]) [address] [place] [address] 85189 WBC (Bld) [#/Vol] 9.6 x10*3/uL Normal 4.4-11.3 [facility] Comment on above: Performed By: #### 5 8410-2 #### CORDELL KOVACS ([id number]) [facility] ([facility]) [address] [place] [address] 87946 ESR Westergren method (Bld) [Velocity]on 09-01-2023 ESR (Bld) [Velocity] 46 mm/h High 0-20 [facility] Comment on above: Performed By: #### 4 537-7 #### CORDELL KOVACS ([id number]) [facility] ([facility]) [address] [place] [address] 99423 Iron and Iron binding capaci ty panelon 09-01-2023 Iron [Mass/Vol] 60 ug/dL Normal 35-150 [facility] Comment on above: Performed By: #### 5 0190-8 #### CORDELL KOVACS ([id number]) [facility] ([facility]) [address] [place] [address] 70352 Iron binding capacity [Mass/Vol] 329 ug/dL Normal 240-445 [facility] Comment on above: Performed By: #### 5 0190-8 #### CORDELL KOVACS ([id number]) [facility] ([facility]) [address] [place] [address] 66635 Iron binding capacity.unsaturate d [Mass/Vol] 269 ug/dL Normal 110-370 [facility] Comment on above: Performed By: #### 5 0190-8 #### CORDELL KOVACS ([id number]) [facility] ([facility]) [address] [place] [address] 62844 Iron saturation [Mass fraction] 18 % Low 25-45 [facility] Comment on above: Performed By: #### 5 0190-8 #### CORDELL KOVACS ([id number]) [facility] ([facility]) [address] [place] [address] 61909 M. tuberculosis stim IFN-g a nd spot count panel (Bld)on 09-01-2023 Gamma interferon negative control spot count (Bld) [#] Passed Normal [facility] Comment on above: Performed By: #### 7 4281-7 #### QUEST CHANTL ([id number]) [address] [facility] M. tuberculosis stim IFN-g CFP10 Ag spot count (Bld) [#] 0 Normal [facility] Comment on above: Performed By: #### 7 4281-7 #### QUEST CHANTL ([id number]) [address] [facility] [place] M. tuberculosis stim IFN-g ESAT-6 Ag spot count (Bld) [#] 0 Normal [facility] Comment on above: Performed By: #### 7 4281-7 #### QUEST CHANTL ([id number]) [address] [facility] [address] [place], [place] M. tuberculosis stim IFN-g Ql (Bld) [Interp] Negative Normal Negative [facility] Comment on above: Result Comment: A negative test result does not exclude the possibility of exposure to or infection with Mycobacterium tuberculosis (M. tuberculosis). Patients with recent exposure to TB infected individuals exhibiting a negative T-SPOT.TB result should be considered for retesting within 6 weeks or if other relevant clinical symptoms indicate. Results from T-SPOT.TB testing must be used in conjunction with each individual's epidemiological history, current medical status, and results of other diagnostic evaluations. The T-SPOT.TB test is qualitative and results are reported as positive, borderline, or negative, given that the test controls perform as expected. In line with the Centers for Disease Control and Prevention's 2010 recommendation to report quantitative measurements alongside the qualitative result, the laboratory provides spot counts for informational purposes only. The T-SPOT.TB test should not be interpreted as a quantitative test. Performed By: #### 7 4281-7 #### QUEST CHANTL ([id number]) [address] [place] Mitogen stimulated gamma interferon positive control spot count (Bld) [#] Passed Normal [facility] Comment on above: Result Comment: For additional information, please refer to http://education.[employer]/faq/ELO936 (This link is being provided for informational/ educational purposes only.) Performed By: #### 7 4281-7 #### QUEST MONTEZ ([id number]) [address] [facility] [address] [place], [place] TPMT ENZYMESon 09-01-2023 Thiopurine methyltransferase (Bld) [Catalytic activity/Vol] 17.5 U/mL Low 24.0-44.0 [facility] Comment on above: Result Comment: INTE RPRETIVE INFORMATION: Thiopurine Methyltransferase, RBC Normal TPMT activity: 24.0-44.0 U/mL................Individuals are predicted to be at low risk of bone marrow toxicity (myelosuppression) as a consequence of standard thiopurine therapy; no dose adjustment is recommended. Intermediate TPMT activity: 17.0-23.9 U/mL................Individuals are predicted to be at intermediate risk of bone marrow toxicity (myelosuppression) as a consequence of standard thiopurine therapy; a dose reduction and therapeutic drug management is recommended. Low TPMT activity: less than 17.0 U/mL...........Individuals are predicted to be at high risk of bone marrow toxicity (myelosuppression) as a consequence of standard thiopurine dosing. It is recommended to avoid the use of thiopurine drugs. High TPMT activity: greater than 44.0 U/mL........Individuals are not predicted to be at risk for bone marrow toxicity (myelosuppression) as a consequence of standard thiopurine dosing, but may be at risk for therapeutic failure due to excessive inactivation of thiopurine drugs. Individuals may require higher than the normal standard dose. Therapeutic drug management is recommended. The TPMT, RBC assay is used as a screen to detect individuals with low and intermediate TPMT activity who may be at risk for myelosuppression when exposed to standard doses of thiopurines, including azathioprine (Imuran) and 6-mercaptopurine (Purinethol). TPMT is the primary metabolic route for inactivation of thiopurine drugs in the bone marrow. When TPMT activity is low, it is predicted that proportionately more 6-mercaptopurine can be converted into the cytotoxic 6-thioguanine nucleotides that accumulate in the bone marrow causing excessive toxicity. The activity of TPMT is measured by the nanomoles of 6-methylmercaptopurine (inactive metabolite) produced per 1 mL of packed red blood cells, (U/mL). TPMT phenotype testing does not replace the need for clinical monitoring of patients treated with thiopurine drugs. Genotype for TPMT cannot be inferred from TPMT activity (phenotype). Phenotype testing should not be requested for patients currently treated with thiopurine drugs. Current TPMT phenotype may not reflect future TPMT phenotype, particularly in patients who received blood transfusion within 30-60 days of testing. TPMT enzyme activity can be inhibited by several drugs such as: naproxen (Aleve), ibuprofen (Advil, Motrin), ketoprofen (Orudis), furosemide (Lasix), sulfasalazine (Azulfidine), mesalamine (Asacol), olsalazine (Dipentum), mefenamic acid (Ponstel), thiazide diuretics, and benzoic acid inhibitors. TPMT inhibitors may contribute to falsely low results; patients should abstain from these drugs for at least 48 hours prior to TPMT testing. Falsely low results may also occur as a result of inappropriate specimen handling and hemolysis. This test was developed and its performance characteristics determined by [facility]. It has not been cleared or approved by the [place] Food and Drug Administration. This test was performed in a CLIA certified laboratory and is intended for clinical purposes. Performed By: [facility] [address] [place] [address]65 Dynamite Reclaimer: Cherelle Trevizo MD, PhD CLIA Number: [id number] Performed By: #### T PMTE #### [employer] ([place]) ([id number]) [address] [place], [place] [id number] CBC W Auto Differential pane l (Bld)on 07-14-2023 Basophils (Bld) [#/Vol] 0.03 x10*3/uL Normal 0.00-0.10 [facility] Comment on above: Performed By: #### 5 7021-8 #### AR CHATMAN ([id number]) [facility] ([facility]) [address] [place] [address] [place] [address] Basophils/100 WBC (Bld) 0.3 % Normal 0.0-2.0 [facility] Comment on above: Performed By: #### 5 7021-8 #### AR CHATMAN ([id number]) [facility] ([facility]) [address] [place] [address] [place] [address] Eosinophils (Bld) [#/Vol] 0.06 x10*3/uL Normal 0.00-0.70 [facility] Comment on above: Performed By: #### 5 7021-8 #### RA CHATMAN ([id number]) [facility] ([facility]) [address] [place] [address] [place] [address] Eosinophils/100 WBC (Bld) 0.6 % Normal 0.0-6.0 [facility] Comment on above: Performed By: #### 5 7021-8 #### AR CHATMAN ([id number]) [facility] ([facility]) [address] [place] [address] [place] [address] Erythrocyte distribution width (RBC) [Ratio] 14.3 % Normal 11.5-14.5 [facility] Comment on above: Performed By: #### 5 7021-8 #### AR CHATMAN ([id number]) [facility] ([facility]) [address] [place] [address] [place] [address] Hematocrit (Bld) [Volume fraction] 35.4 % Low 36.0-46.0 [facility] Comment on above: Performed By: #### 5 7021-8 #### AR CHATMAN ([id number]) [facility] ([facility]) [address] [place] [address] [place] [address] Hemoglobin (Bld) [Mass/Vol] 11.2 g/dL Low 12.0-16.0 [facility] Comment on above: Performed By: #### 5 7021-8 #### AR CHATMAN ([id number]) [facility] ([facility]) [address] [place] [address] [place] [address] Immature granulocytes (Bld) [#/Vol] 0.01 x10*3/uL Normal 0.00-0.70 [facility] Comment on above: Performed By: #### 5 7021-8 #### AR CHATMAN ([id number]) [facility] ([facility]) [address] [place] [address] [place] [address] Immature granulocytes/100 WBC (Bld) 0.1 % Normal 0.0-0.9 [facility] Comment on above: Result Comment: Zulay ture Granulocyte Count (IG) includes promyelocytes, myelocytes and metamyelocytes but does not include bands. Percent differential counts (%) should be interpreted in the context of the absolute cell counts (cells/UL). Performed By: #### 5 7021-8 #### AR CHATMAN ([id number]) [facility] ([facility]) [address] [place] [address] [place] [address] Lymphocytes (Bld) [#/Vol] 2.56 x10*3/uL Normal 1.20-4.80 [facility] Comment on above: Performed By: #### 5 7021-8 #### AR CHATMAN ([id number]) [facility] ([facility]) [address] [place] [address] [place] [address] Lymphocytes/100 WBC (Bld) 27.5 % Normal 13.0-44.0 [facility] Comment on above: Performed By: #### 5 7021-8 #### AR CHATMAN ([id number]) [facility] ([facility]) [address] [place] [address] [place] [address] MCH (RBC) [Entitic mass] 27.1 pg Normal 26.0-34.0 [facility] Comment on above: Performed By: #### 5 7021-8 #### AR CHATMAN ([id number]) [facility] ([facility]) [address] [place] [address] [place] [address] MCHC (RBC) [Mass/Vol] 31.6 g/dL Low 32.0-36.0 [facility] Comment on above: Performed By: #### 5 7021-8 #### AR CHATMAN ([id number]) [facility] ([facility]) [address] [place] [address] [place] [address] MCV (RBC) [Entitic vol] 86 fL Normal 80-100 [facility] Comment on above: Performed By: #### 5 7021-8 #### AR CHATMAN ([id number]) [facility] ([facility]) [address] [place] [address] [place] [address] Monocytes (Bld) [#/Vol] 0.47 x10*3/uL Normal 0.10-1.00 [facility] Comment on above: Performed By: #### 5 7021-8 #### AR CHATMAN ([id number]) [facility] ([facility]) [address] [place] [address] [place] [address] Monocytes/100 WBC (Bld) 5.1 % Normal 2.0-10.0 [facility] Comment on above: Performed By: #### 5 7021-8 #### AR CHATMAN ([id number]) [facility] ([facility]) [address] [place] [address] [place] [address] Neutrophils (Bld) [#/Vol] 6.17 x10*3/uL Normal 1.20-7.70 [facility] Comment on above: Result Comment: Perc ent differential counts (%) should be interpreted in the context of the absolute cell counts (cells/uL). Performed By: #### 5 7021-8 #### AR CHATMAN ([id number]) [facility] ([facility]) [address] [place] [address] [place] [address] Neutrophils/100 WBC (Bld) 66.4 % Normal 40.0-80.0 [facility] Comment on above: Performed By: #### 5 7021-8 #### AR CHATMAN ([id number]) [facility] ([facility]) [address] [place] [address] [place] [address] Platelets (Bld) [#/Vol] 286 x10*3/uL Normal 150-450 [facility] Comment on above: Performed By: #### 5 7021-8 #### AR CHATMAN ([id number]) [facility] ([facility]) [address] [place] [address] [place] [address] RBC (Bld) [#/Vol] 4.14 x10*6/uL Normal 4.00-5.20 [facility] Comment on above: Performed By: #### 5 7021-8 #### AR CHATMAN ([id number]) [facility] ([facility]) [address] [place] [address] [place] [address] WBC (Bld) [#/Vol] 9.3 x10*3/uL Normal 4.4-11.3 [facility] Comment on above: Performed By: #### 5 7021-8 #### AR CHATMAN ([id number]) [facility] ([facility]) [address] [place] [address] [place] [address] Cobalaminson 07-14-2023 Cobalamin (Vitamin B12) [Mass/Vol] 409 pg/mL Normal 211-911 [facility] Comment on above: Performed By: #### 2 132-9 #### ELIEL Desai ([id number]) [facility] ([facility]) [id number] [place] [address] Ferritinon 07-14-2023 Ferritin [Mass/Vol] 119 ng/mL Normal 8-150 [facility] Comment on above: Performed By: #### 2 276-4 #### AR CHATMAN ([id number]) [facility] ([facility] [address] [place] [address] Iron and Iron binding capaci ty panelon 07-14-2023 Iron [Mass/Vol] 44 ug/dL Normal 35-150 [facility] Comment on above: Performed By: #### 5 0190-8 #### AR CHATMAN ([id number]) [facility] ([facility] [address] [place] [address] Iron binding capacity [Mass/Vol] 291 ug/dL Normal 240-445 [facility] Comment on above: Performed By: #### 5 0190-8 #### AR CHATMAN ([id number]) [facility] ([facility] [address] [place] [address] Iron binding capacity.unsaturate d [Mass/Vol] 247 ug/dL Normal 110-370 [facility] Comment on above: Performed By: #### 5 0190-8 #### AR CHATMAN ([id number]) [facility] ([facility] [address] [place] [address] Iron saturation [Mass fraction] 15 % Low 25-45 [facility] Comment on above: Performed By: #### 5 0190-8 #### AR CHATMAN ([id number]) [facility] ([facility] [id number] [place] [address] Iron and Iron binding capaci ty panelon 03-13-2023 Interpretation and review of laboratory results Abnormal [facility] Iron [Mass/Vol] 33 ug/dL Low 35 - 150 ug/dL [facility] Iron binding capacity [Mass/Vol] 322 ug/dL 240 - 445 ug/dL [facility] Iron binding capacity.unsaturate d [Mass/Vol] 289 ug/dL 110 - 370 ug/dL [facility] Iron saturation [Mass fraction] 10 % Low 25 - 45 % [facility] C reactive proteinon 023 CRP High sensitivity method [Mass/Vol] 5.0 mg/L Normal >=1.0 [facility] Comment on above: Order Comment: hsCRP Interpretation mg/L < 1.0 Low relative risk of CVD 1.0-3.0 Average relative risk of CVD > 3.0 High relative risk of CVD Source: Lavern T. A. et al. Circulation 2003; 107:499-511. Performed By: #### 3 0522-7 #### ELIEL Desai ([id number]) [facility] ([facility]) [address] [place] [address] CBC W Auto Differential pane l (Bld)on 03-10-2023 Basophils (Bld) [#/Vol] 0.04 x10*3/uL Normal 0.00-0.10 [facility] Comment on above: Performed By: #### 5 7021-8 #### AR CHATMAN ([id number]) [facility] ([facility]) [address] [place] [address] [place] [address] Basophils/100 WBC (Bld) 0.4 % Normal 0.0-2.0 [facility] Comment on above: Performed By: #### 5 7021-8 #### RA CHATMAN ([id number]) [facility] ([facility]) [address] [place] [address] [place] [address] Eosinophils (Bld) [#/Vol] 0.09 x10*3/uL Normal 0.00-0.70 [facility] Comment on above: Performed By: #### 5 7021-8 #### AR CHATMAN ([id number]) [facility] ([facility]) [address] [place] [address] [place] [address] Eosinophils/100 WBC (Bld) 0.9 % Normal 0.0-6.0 [facility] Comment on above: Performed By: #### 5 7021-8 #### AR CHATMAN ([id number]) [facility] ([facility]) [address] [place] [address] [place] [address] Erythrocyte distribution width (RBC) [Ratio] 14.6 % High 11.5-14.5 [facility] Comment on above: Performed By: #### 5 7021-8 #### AR CHATMAN ([id number]) [facility] ([facility]) [address] [place] [address] [place] [address] Hematocrit (Bld) [Volume fraction] 34.1 % Low 36.0-46.0 [facility] Comment on above: Performed By: #### 5 7021-8 #### AR CHATMAN ([id number]) [facility] ([facility]) [address] [place] [address] [place] [address] Hemoglobin (Bld) [Mass/Vol] 10.7 g/dL Low 12.0-16.0 [facility] Comment on above: Performed By: #### 5 7021-8 #### AR CHATMAN ([id number]) [facility] ([facility]) [address] [place] [address] [place] [address] Immature granulocytes (Bld) [#/Vol] 0.01 x10*3/uL Normal 0.00-0.70 [facility] Comment on above: Performed By: #### 5 7021-8 #### AR CHATMAN ([id number]) [facility] ([facility]) [address] [place] [address] [place] [address] Immature granulocytes/100 WBC (Bld) 0.1 % Normal 0.0-0.9 [facility] Comment on above: Result Comment: Zulay ture Granulocyte Count (IG) includes promyelocytes, myelocytes and metamyelocytes but does not include bands. Percent differential counts (%) should be interpreted in the context of the absolute cell counts (cells/UL). Performed By: #### 5 7021-8 #### AR CHATMAN ([id number]) [facility] ([facility]) [address] [place] [address] [place] [address] Lymphocytes (Bld) [#/Vol] 3.33 x10*3/uL Normal 1.20-4.80 [facility] Comment on above: Performed By: #### 5 7021-8 #### AR CHATMAN ([id number]) [facility] ([facility]) [address] [place] [address] [place] [address] Lymphocytes/100 WBC (Bld) 32.9 % Normal 13.0-44.0 [facility] Comment on above: Performed By: #### 5 7021-8 #### AR CHATMAN ([id number]) [facility] ([facility]) [address] [place] [address] [place] [address] MCH (RBC) [Entitic mass] 26.7 pg Normal 26.0-34.0 [facility] Comment on above: Performed By: #### 5 7021-8 #### AR CHATMAN ([id number]) [facility] ([facility]) [address] [place] [address] [place] [address] MCHC (RBC) [Mass/Vol] 31.4 g/dL Low 32.0-36.0 [facility] Comment on above: Performed By: #### 5 7021-8 #### AR CHATMAN ([id number]) [facility] ([facility]) [address] [place] [address] [place] [address] MCV (RBC) [Entitic vol] 85 fL Normal 80-100 [facility] Comment on above: Performed By: #### 5 7021-8 #### AR CHATMAN ([id number]) [facility] ([facility]) [address] [place] [address] [place] [address] Monocytes (Bld) [#/Vol] 0.42 x10*3/uL Normal 0.10-1.00 [facility] Comment on above: Performed By: #### 5 7021-8 #### AR CHATMAN ([id number]) [facility] ([facility]) [address] [place] [address] [place] [address] Monocytes/100 WBC (Bld) 4.2 % Normal 2.0-10.0 [facility] Comment on above: Performed By: #### 5 7021-8 #### AR CHATMAN ([id number]) [facility] ([facility]) [address] [place] [address] [place] [address] Neutrophils (Bld) [#/Vol] 6.22 x10*3/uL Normal 1.20-7.70 [facility] Comment on above: Result Comment: Perc ent differential counts (%) should be interpreted in the context of the absolute cell counts (cells/uL). Performed By: #### 5 7021-8 #### AR CHATMAN ([id number]) [facility] ([facility]) [address] [place] [address] [place] [address] Neutrophils/100 WBC (Bld) 61.5 % Normal 40.0-80.0 [facility] Comment on above: Performed By: #### 5 7021-8 #### AR CHATMAN ([id number]) [facility] ([facility]) [address] [place] [address] [place] [address] Platelet mean volume (Bld) [Entitic vol] 9.9 fL Normal 7.5-11.5 [facility] Comment on above: Performed By: #### 5 7021-8 #### AR CHATMAN ([id number]) [facility] ([facility]) [address] [place] [address] [place] [address] Platelets (Bld) [#/Vol] 323 x10*3/uL Normal 150-450 [facility] Comment on above: Performed By: #### 5 7021-8 #### AR CHATMAN ([id number]) [facility] ([facility]) [address] [place] [address] [place] [address] RBC (Bld) [#/Vol] 4.01 x10*6/uL Normal 4.00-5.20 [facility] Comment on above: Performed By: #### 5 7021-8 #### AR CHATMAN ([id number]) [facility] ([facility]) [id number] [place] [address] [place] [address] WBC (Bld) [#/Vol] 10.1 x10*3/uL Normal 4.4-11.3 [facility] Comment on above: Performed By: #### 5 7021-8 #### AR CHATMAN ([id number]) [facility] ([facility]) [id number] [place] [address] [place] [address] ESR Westergren method (Bld) [Velocity]on 03-10-2023 ESR (Bld) [Velocity] 75 mm/h High 0-20 [facility] Comment on above: Performed By: #### 4 537-7 #### AR CHATMAN ([id number]) [facility] ([facility] [address] [place] [address] Ferritinon 03-10-2023 Ferritin [Mass/Vol] 24 ng/mL Normal 8-150 [facility] Comment on above: Performed By: #### 2 276-4 #### AR CHATMAN ([id number]) [facility] ([facility] [address] [place] [address] Iron and Iron binding capaci ty panelon 03-10-2023 Iron [Mass/Vol] 33 ug/dL Low 35-150 [facility] Comment on above: Performed By: #### 5 0190-8 #### AR CHATMAN ([id number]) [facility] ([facility] [address] [place] [address] Iron binding capacity [Mass/Vol] 322 ug/dL Normal 240-445 [facility] Comment on above: Performed By: #### 5 0190-8 #### AR CHATMAN ([id number]) [facility] ([facility] [address] [place] [address] Iron binding capacity.unsaturate d [Mass/Vol] 289 ug/dL Normal 110-370 [facility] Comment on above: Performed By: #### 5 0190-8 #### AR CHATMAN ([id number]) [facility] ([facility] [address] [place] [address] Iron saturation [Mass fraction] 10 % Low 25-45 [facility] Comment on above: Performed By: #### 5 0190-8 #### AR CHATMAN ([id number]) [facility] ([facility] [address] [place] [address] C Reactive Protein, Serumon 01-07-2023 CRP [Mass/Vol] Canceled [facility] [employer] [address] Work Phone: CRP [Mass/Vol] 0.38 mg/dL [facility] [employer] 1600 Work Phone: Comment on above: REF VALUE< 1.00 C-REACTIVE PROTEINon 023 C-REACTIVE PROTEIN 0.38 mg/dL Normal [facility] Comment on above: Result Comment: REF VALUE < 1.00 Performed By: #### C RP #### [address] [place] [address] C-REACTIVE PROTEIN Canceled Normal [facility] Comment on above: Order Comment: TEST C-REACTIVE PROTEIN WAS CANCELLED, 01/07/2023 12:52 DUPLICATE. Performed By: #### C RP #### [address] [place] [address] CBC AND DIFFERENTIALon 01-07 % AUTOMATED IMMATURE GRAN 0.1 % Normal 0.0 - 0.9 [facility] Comment on above: Result Comment: Zulay ture Granulocyte Count (IG) includes promyelocytes, myelocytes and metamyelocytes but does not include bands. Percent differential counts (%) should be interpreted in the context of the absolute cell counts (cells/L). Performed By: #### C BCDF #### [address] [place] [address] Basophils (Bld) [#/Vol] 0.03 10*3/uL Normal 0.00 - 0.10 [facility] Comment on above: Performed By: #### C BCDF #### [address] [place] [address] Basophils/100 WBC (Bld) 0.4 % Normal 0.0 - 2.0 [facility] Comment on above: Performed By: #### C BCDF #### [address] [place] [address] Eosinophils (Bld) [#/Vol] 0.03 10*3/uL Normal 0.00 - 0.70 [facility] Comment on above: Performed By: #### C BCDF #### [address] [place] [address] Eosinophils/100 WBC (Bld) 0.4 % Normal 0.0 - 6.0 [facility] Comment on above: Performed By: #### C BCDF #### [address] [place] [address] Erythrocyte distribution width (RBC) [Ratio] 14.1 % Normal 11.5 - 14.5 [facility] Comment on above: Performed By: #### C BCDF #### [address] [place] [address] Hematocrit (Bld) [Volume fraction] 35.1 % Low 36.0 - 46.0 [facility] Comment on above: Performed By: #### C BCDF #### [address] [place] [address] Hemoglobin (Bld) [Mass/Vol] 11.2 g/dL Low 12.0 - 16.0 [facility] Comment on above: Performed By: #### C BCDF #### [address] [place] [address] Lymphocytes (Bld) [#/Vol] 3.06 10*3/uL Normal 1.20 - 4.80 [facility] Comment on above: Performed By: #### C BCDF #### [address] [place] [address] Lymphocytes/100 WBC (Bld) 36.8 % Normal 13.0 - 44.0 [facility] Comment on above: Performed By: #### C BCDF #### [address] [place] [address] MCHC (RBC) [Mass/Vol] 31.9 g/dL Low 32.0 - 36.0 [facility] Comment on above: Performed By: #### C BCDF #### [address] [place] [address] MCV (RBC) [Entitic vol] 85 fL Normal 80 - 100 [facility] Comment on above: Performed By: #### C BCDF #### [address] [place] [address] Monocytes (Bld) [#/Vol] 0.27 10*3/uL Normal 0.10 - 1.00 [facility] Comment on above: Performed By: #### C BCDF #### [address] [place] [address] Monocytes/100 WBC (Bld) 3.2 % Normal 2.0 - 10.0 [facility] Comment on above: Performed By: #### C BCDF #### [address] [place] [address] Neutrophils (Bld) [#/Vol] 4.92 10*3/uL Normal 1.20 - 7.70 [facility] Comment on above: Performed By: #### C BCDF #### [address] [place] [address] Neutrophils/100 WBC (Bld) 59.1 % Normal 40.0 - 80.0 [facility] Comment on above: Performed By: #### C BCDF #### [address] [place] [address] Platelets (Bld) [#/Vol] 246 10*3/uL Normal 150 - 450 [facility] Comment on above: Performed By: #### C BCDF #### [address] [place] [address] RBC 4.15 x10E12/L Normal 4.00 - 5.20 [facility] Comment on above: Performed By: #### C BCDF #### [address] [place] [address] WBC (Bld) [#/Vol] 8.3 10*3/uL Normal 4.4 - 11.3 [facility] Comment on above: Performed By: #### C BCDF #### [address] [place] [address] Complete Blood Count + Diffe rentialon 01-07-2023 Basophils/100 WBC (Bld) 0.4 % 0.0 - 2.0 [facility] [employer] Work Phone: [phone] Erythrocyte distribution width (RBC) [Ratio] 14.1 % See Below [facility] [employer] Work Phone: [phone] Comment on above: Reference Range: 11. 5 - 14.5 Hematocrit (Bld) [Volume fraction] 35.1 % below low threshold See Below [facility] [employer] [address] Work Phone: [phone] Comment on above: Reference Range: 36. 0 - 46.0 Hemoglobin (Bld) [Mass/Vol] 11.2 g/dL below low threshold See Below [facility] [employer] [address] Work Phone: [phone] Comment on above: Reference Range: 12. 0 - 16.0 Lymphocytes/100 WBC (Bld) 36.8 % See Below [facility] [employer] [address] Work Phone: [phone] Comment on above: Reference Range: 13. 0 - 44.0 MCHC (RBC) [Mass/Vol] 31.9 g/dL below low threshold See Below [facility] [employer] [address] Work Phone: [phone] Comment on above: Reference Range: 32. 0 - 36.0 MCV (RBC) [Entitic vol] 85 fL 80 - 100 [facility] [employer] Work Phone: Monocytes/100 WBC (Bld) 3.2 % 2.0 - 10.0 [facility] [employer] Work Phone: Neutrophils/100 WBC (Bld) 59.1 % See Below [facility] [employer] Work Phone: Comment on above: Reference Range: 40. 0 - 80.0 Platelets (Bld) [#/Vol] 246 10*3/uL 150 - 450 [facility] [employer] Work Phone: RBC (Bld) [#/Vol] 4.15 {x10E12/L} See Below [facility] [employer] Work Phone: Comment on above: Reference Range: 4.0 0 - 5.20 WBC (Bld) [#/Vol] 8.3 10*3/uL 4.4 - 11.3 [facility] ocrino log-[facility] [employer] Work Phone: Complete Blood Count + Differential 0.03 {x10E9/L} See Below [facility] [employer] Work Phone: Comment on above: Reference Range: 0.0 0 - 0.10 Reference Range: 0.0 0 - 0.70 Complete Blood Count + Differential 0.27 {x10E9/L} See Below MG-Endocrino logy-[facility] [employer] Work Phone: Comment on above: Reference Range: 0.1 0 - 1.00 Complete Blood Count + Differential 3.06 {x10E9/L} See Below MG-Endocrino logy-[facility] [employer] Work Phone: Comment on above: Reference Range: 1.2 0 - 4.80 Complete Blood Count + Differential 4.92 {x10E9/L} See Below MG-Endocrino logy-[facility] [employer] Work Phone: Comment on above: Reference Range: 1.2 0 - 7.70 Complete Blood Count + Differential 0.4 % 0.0 - 6.0 MG-Endocrino logy-[facility] [employer] Work Phone: [phone] Complete Blood Count + Differential 0.1 % 0.0 - 0.9 MG-Endocrino logy-[facility] [employer] Work Phone: Comment on above: Immature Granulocyte Count (IG) includes promyelocytes, myelocytes and metamyelocytes but does not include bands. Percent differential counts (%) should be interpreted in the context of the absolute cell counts (cells/L). FERRITINon 01-07-2023 FERRITIN 34 ug/L Normal 8 - 150 [facility] [place] on above: Performed By: #### F ERRI #### [facility] [id number] [place] [address] Ferritin, Serumon 01-07-2023 Ferritin [Mass/Vol] 34 ug/L 8 - 150 [facility]-En docrino log-[facility] [employer] Work Phone: [phone] IRON + TIBCon 01-07-2023 % SATURATION 19 % Low 25 - 45 [facility] [place] on above: Performed By: #### C BCDF #### [address] [place] [address] Iron [Mass/Vol] 56 ug/dL Normal 35 - 150 [facility] Comment on above: Performed By: #### C BCDF #### [address] [place] [address] TIBC 302 ug/dL Normal 240 - 445 [facility] [place] on above: Performed By: #### C BCDF #### [address] [place] [address] Laboratory - Chemistry and C hemistry - challengeon 01-07-2023 Iron [Mass/Vol] 56 ug/dL 35 - 150 [facility]-Endocr chin log-[facility] [employer] Work Phone: Iron binding capacity [Mass/Vol] 302 ug/dL 240 - 445 MG-Endocrino logy-[facility] Luis M 1600 Work Phone: No Panel Informationon 01-07 19 % below low threshold 25 - 45 MG-Endocrino logYour Office Agent-[employer] 1600 Work Phone: SEDIMENTATION RATE, ERYTHROC YTEon 01-07-2023 SEDIMENTATION RATE, ERYTHROCYTE 70 mm/h High 0 - 20 [facility] Comment on above: Performed By: #### C BC #### [facility] [address] [place] [address] Sedimentation Rate, Erythroc yteon 01-07-2023 ESR (Bld) [Velocity] 70 mm/h above high threshold 0 - 20 MG-Endocrino logYour Office Agent-[facility] [employer] 1600 Work Phone: Office Visiton 12-11-2022 Follow-up visit Diagnoses/Problems Nasal vestibulitis (478.19) (J34.89) Chronic ethmoidal sinusitis (473.2) (J32.2) Provider Impressions Ms. LOLA HIGGINBOTHAM is a pleasant 32 year woman, status post nasal debridement with biopsies November 04, 2018 Patient with history of chronic anterior nasal crusting and vestibulitis, secondary to autoimmune disorder. She has been using mupirocin recently with mild improvement, and she returns for routine debridement and cleaning, usually every 4 to 6 months. Debridement performed, and she will follow up in about 4-6 months with my colleague or sooner as needed. This electronic medical record note was created with the use of voice recognition software. Despite proofreading, typographical or grammatical errors may be present that could affect the meaning of content. Please call with any questions. I, Phill Downey, am scribing for, and in the presence of, Dr. Bonilla on 12/11/2022 at 9:00AM . I, Abdullahi Bonilla, personally attest to the documentation as scribed in my presence. I have reviewed the chart and agree that the record accurately reflects my performance of the history, exam, assessment, plan, and relevant diagnoses.? Chief Complaint FUV- Nasal congestion History of Present IllnessPatient is a 32 year old female presenting today for a follow-up of nasal congestion and chronic nasal crusting. She is doing well with no complaints and no new or worsening symptoms. Review of Systems ENT review of systems is negative except as noted per HPI. Active Problems Adrenal insufficiency (255.41) (E27.40) Anemia (285.9) (D64.9) Added by Problem List Migration; 2013-01-07; Moved to Suppressed Apr 09 2013 4:10PM ASCUS of cervix with negative high risk HPV (795.01) (R87.610) Autoimmune disease (279.49) (M35.9) BMI 32.0-32.9,adult (V85.32) (Z68.32) Chronic ethmoidal sinusitis (473.2) (J32.2) Chronic otitis externa (380.23) (H60.60) Chronic pansinusitis (473.8) (J32.4) Crohn's disease of small and large intestines with complication (555.2) (K50.819) Effective bowel preparation for surgery Folliculitis (704.8) (L73.9) Gallbladder polyp (575.6) (K82.4) Hearing loss of both ears due to cerumen impaction (389.8,380.4) (H61.23) Hemorrhoid (455.6) (K64.9) Hypothyroidism, 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) Impacted cerumen of both ears (380.4) (H61.23) Nasal crusting (478.19) (J34.89) Nasal obstruction (478.19) (J34.89) Nasal vestibulitis (478.19) (J34.89) Obesity (BMI 30.0-34.9) (278.00) (E66.9) 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) Syncope (780.2) (R55) Uveitis (364.3) (H20.9) Vitamin D deficiency (268.9) (E55.9) Well adult Well woman exam (no gynecological exam) (V70.0) (Z00.00) Past Medical History History of Acute Crohn's disease (555.9) (K50.90) History of Adrenal insufficiency (255.41) (E27.40) History of Adrenal insufficiency (255.41) (E27.40) History of Allergic conjunctivitis of both eyes (372.14) (H10.13) Resolved Date: 25 Feb 2019 History of ASCUS of cervix with negative high risk HPV (795.01) (R87.610) History of ASCUS of cervix with negative high risk HPV (795.01) (R87.610) History of Chronic anterior ethmoidal sinusitis (473.2) (J32.2) Resolved Date: 25 Feb 2019 History of Chronic iritis, 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) History of Chronic steroid use (V58.65) 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,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,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) Resolved Date: 26 Nov 2016 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) Resolved Date: 26 Nov 2016 History of Epistaxis (784.7) (R04.0) History of anemia (V12.3) (Z86.2) History of chronic sinusitis (V12.69) (Z87.09) Resolved Date: 25 Feb 2019 History of chronic sinusitis (V12.69) (Z87.09) Resolved Date: 25 Feb 2019 History of deep venous thrombosis (V12.51) (Z86.718) Resolved Date: 14 Oct 2016 History of deviated nasal septum (V12.69) (Z87.09) Resolved Date: 25 Feb 2019 History of goiter (V12.29) (Z86.39) Resolved Date: 25 Feb 2019 History of impacted cerumen (V12.49) (Z86.69) Resolved Date: 14 Oct 2016 History of iron deficiency anemia (V12.3) (Z86.2) History of pulmonary embolism (V12.55) (Z86.711) Resolved Date: 14 Oct 2016 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) Resolved Date: 14 Jan 2016 IN 2012 was on Methimazole History of Hyperthyroidism (242.90) (E05.90) was on Methimazole History of Multinodular goiter (241.1) (E04.2) Resolved Date: 27 Aug 2018 History of Nasal turbinate hypertrophy (478.0) (J34.3) Resolved Date: 25 Feb 2019 History of On prednisone therapy (V58.65) (Z79.52) History of On prednisone therapy (V58.65) (Z79.52) Resolved Date: 27 Aug 2018 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 Normal [employer] Tobacco Screening.on 023 Adult depression screening assessment No [employer] Work Phone: Fall risk assessment a) No falls within the last year [employer] Work Phone: Tobacco use status CPHS b) No [employer] Work Phone: Clinic Note - Heme Onc Sched alekseyon 11-11-2022 Clinic Note - Heme Onc Scheduling Retrieve Patient Instructions: Patient Instructions: Patient Instructions: RetrievePatient Instructions Instructions Typenutrition Instructions Your iron levels are adequate. You do not need IV iron infusion at this time. However, we will monitor your blood counts closely. You will have labs done in 2 months. We will call you if IV iron infusion is indicated at that time. I will see you back in 4 months to follow up with labs done a few days prior to the next visit. End of Visit Documentation: Clinic Location/Phone Number: Clinic Location/Phone Number: . End Of Visit MU Report Item: Visit Summary given or mailed to patientyes Electronic Signatures: Yumiko Schmidt (Rev Cycl Spec) (Signed 11-Nov-2022 10:19) Authored: Retrieve Patient Instructions, End of Visit Documentation Last Updated: 11-Nov-2022 10:19 by Yumiko Schmidt (Rev Cycl Spec) Normal [facility] [place] Clinic Note - Heme Onc-Benig n Heme Follow-upon 11-11-2022 Clinic Note - Heme Onc-Benign Heme Follow-up Patient Visit Information: Visit Type: Benign Heme Follow-up History of Present Illness: ID Statement: LOLA HIGGINBOTHAM is a 32 year old Female Chief Complaint: iron deficiency anemia, follow up Interval History: Ms. Higginbotham is a 27yo female with complicated Crohn's disease since 2011 , was hospitalized at [facility] in 07/2015 (1st since Dx) with a disease flare while on azathioprine and steroids , CMV colitis, sepsis and pancytopenia . Developed DVT-PE during hospitalization. She has a history of Fe deficiency anemia treated with IV Fe, reacted to Feraheme. 07/23/16 Patient is here to see if she will need IV iron sucrose. She is fatigued but she is not sleeping well at night. She has had heavier than normal menses. She had a colonoscopy on 08/17/15 which showed a fistula. She had an EGD on 07/11/10 which was negative. She denies any hospitalizations since her last visit here in 03/2016. Denies any flare ups with her Crohn's disease. Patient is asking if she can come off of her coumadin since it has been a year she has been on it. Coumadin was discontinued several months ago. 04/02/17 pt is here to follow up after receiving 3 doses of IV iron sucrose on 02/16/17, 02/19/17 and 02/26/17. She still is fatigued. When she was here for one of her IV iron infusions she complained of shortness of breath which had been going on for months. Due to her hx of blood clots, a CT for PE was ordered and was negative for PE. It did show her thyroid was enlarged which was not a new finding. She does complain of epistaxis of the left nares for 1 year and difficulty swallowing. She was told she should have a thyroidectomy but she is not sure if she wants to do that. 09/28/2017 she saw ENT--she says he cleaned out her nostrils but there was nothing to cauterize; he documented seeing prominent vessels in her nasal passages and advised her to use saline nasal spray; she said she did use the nasal spray, however, continues to have intermittent nosebleeds -she had labs done by Dr. Orozco last month and said she had to go back to [facility] lab 3 times -she is on daily azathioprine 03/29/18 Mod fatigue and intermittent abd discomfort. Denies melena, hematochezia, heavy menses. Has daily nose bleeds, brief and clot quickly, after sneezing. Has seen ENT and saline sprays were recommended. 10/12/18 c/o high fatigue, daytime sleepiness, and RYDER. Denies pica symptoms, melena, hematochezia. She was on steroids a few months ago for flair of the Crohns. Menses mod flow. 12/07/18 Mod fatigue. Crohn's is stable. Menses are light. 06/02/2019 Has mod fatigue but no worse than her baseline. No recent flares of the Crohns disease. Denies melena, hematochezia. Menses are nml flow. 12/09/2019 No significant flare ups of her Crohn's disease. Denies melena, hematochezia. She is 5 months with due date of 04/08/2020. She is taking vitamins. Does c/o increased fatigue. No pica symptoms. 02/10/2020 Received Venofer 200mg x 5. Hasn't noticed much improvement in energy. 07/12/2020 This visit was conducted via telephone telecommunication due to COVID-19 which permits real time communications between patient and provider. -delivered a healthy baby boy by C section in March. she is not breast feeding. Has resumed Humira for the Crohns in May. Has occ bloody stool. Menses have resumed and are light to moderate flow. C/O mod fatigue and RYDER. no pagophagia. 01/11/2021 Received a course of Venofer in July, with improved energy, but does have chronic baseline fatigue. Crohns is well controlled, had a one week episode of symptom exacerbation. Menses are mod/light flow. 06/24/2021 Currently 26 weeks , with REFUGIO 09/29/21. Crohns disease has been stable, no diarrhea, melena, hematochezia. Has mod fatigue, attributed in part to . 12/23/2021 Here for interval followup for history of iron deficiency anemia -Patient delivered a healthy girl on 09/23/2021. She received Venofer infusion 200 mg x 5 times from 07/01/21 to 07/15/21. -Complains of fatigue today. Denies any chest pain. Admits RYDER. Denies any melena, hematochezia or bloody diarrhea. States that her Crohn's disease is well controlled. 05/13/2022 Here for interval followup -Complains of fatigue today. -Admits menorrhagia -Denies any hematochezia. -Denies any other complaints. 11/11/2022 Here for interval followup -Patient was on Azathioprine from 2011 to 2019 and restarted it in July this year due to a flare-up of right eye uveitis. -Patient denies any GI issues. Denies any bloody diarrhea or melena. -Complains of fatigue. Denies any dizziness, SOB. 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 Normal [facility] [place] Clinic Note - Intakeon 11-11 Clinic Note - Intake Patient Visit Information: Visit TypeFollow Up Visit Source of Informationpatient Admission Information: Admission Since Last VisitYes [facility]Emer[facility] [id number] Admission Reason/Detailseye flare-up Vital Signs: Temp (degrees C)36.4 degrees C Temperaturetemporal Heart Rate (beats/min)68 beats per minute Respiration (breaths/min)16 breath per minute BP Systolic (mm Hg)138 mmHg BP Diastolic (mm Hg)Image has been removed. 96 mmHg BP Mean (mm Hg)Image has been removed. 110 mmHg Height in cm160.4 centimeter(s) Weight in kg93.7 kilogram(s) Weightstanding BMI (kg/m2)36.4 kg/M2 BSA (m2)2.04 M2 Second Set of Vitals/Vitals CommentB/P reported to Marquita Cuellar RN (JUAN ALBERTO) Last 3 Weights & HeightsDate: Weight/Scale Type:Height: 13-May-2022 13:5585.4 kg 160.4 cm 23-Dec-2021 09:4382.3 kg 160.4 cm SpO2 (%)96 % SpO2 Patient Onroom air Pain Screening: Patient States Painno (0) Health Screening: LMP Commentscurrently Allergies: No Known Allergies: Active Outpatient Medication Profile: * Patient Currently Takes Medications as of 13-May-2022 14:03 documented in Structured Notes Humira Pen 40 mg/0.4 mL subcutaneous kit: 0 subcutaneous every week levothyroxine 125 mcg (0.125 mg) oral tablet: 1 tab(s) orally once a day Notification: NotificationsAnnual Screens Due Dates ___ Advanced Directives: Apr 29, 2023 Family Violence: Apr 29, 2023 Depression (Due every 6 months for ONC only; all others use Annual date): Oct 26, 2022 Substance Use - Alcohol: Apr 29, 2023 Substance Use - Drugs: Apr 29, 2023 Nutrition: Apr 29, 2023 Learning: Apr 29, 2023 Travel History: COVID-19 Screening Completedno exposure or symptoms Travel or ExposureNO travel to International locations in the past 30 days Falls: Have you fallen in the last 6 monthsno Do you have a fear of fallingno Do you feel you need assistanceno Is the patient using an assistive deviceno Electronic Signatures: Petra Barton (VIDHI II) (Signed 11-Nov-2022 09:10) Authored: Patient Visit Information, Vital Signs, Health Screening, Allergies, Outpatient Medication Profile, Notification, Travel History, Falls Last Updated: 11-Nov-2022 09:10 by Petra Barton (VIDHI II) Normal [facility] [place] CBC AND DIFFERENTIALon 11-10 % AUTOMATED IMMATURE GRAN 0.2 % Normal 0.0 - 0.9 [facility] Comment on above: Result Comment: Zulay ture Granulocyte Count (IG) includes promyelocytes, myelocytes and metamyelocytes but does not include bands. Percent differential counts (%) should be interpreted in the context of the absolute cell counts (cells/L). Performed By: #### C BCDF #### [facility] [address] [place] [address] Basophils (Bld) [#/Vol] 0.04 10*3/uL Normal 0.00 - 0.10 [facility] Comment on above: Performed By: #### C BCDF #### [address] [place] [address] Basophils/100 WBC (Bld) 0.4 % Normal 0.0 - 2.0 [facility] Comment on above: Performed By: #### C BCDF #### [address] [place] [address] Eosinophils (Bld) [#/Vol] 0.07 10*3/uL Normal 0.00 - 0.70 [facility] Comment on above: Performed By: #### C BCDF #### [address] [place] [address] Eosinophils/100 WBC (Bld) 0.7 % Normal 0.0 - 6.0 [facility] Comment on above: Performed By: #### C BCDF #### [address] [place] [address] Erythrocyte distribution width (RBC) [Ratio] 13.9 % Normal 11.5 - 14.5 [facility] Comment on above: Performed By: #### C BCDF #### [address] [place] [address] Hematocrit (Bld) [Volume fraction] 33.1 % Low 36.0 - 46.0 [facility] Comment on above: Performed By: #### C BCDF #### [address] [place] [address] Hemoglobin (Bld) [Mass/Vol] 10.4 g/dL Low 12.0 - 16.0 [facility] Comment on above: Performed By: #### C BCDF #### [address] [place] [address] Lymphocytes (Bld) [#/Vol] 3.29 10*3/uL Normal 1.20 - 4.80 [facility] Comment on above: Performed By: #### C BCDF #### [address] [place] [address] Lymphocytes/100 WBC (Bld) 30.7 % Normal 13.0 - 44.0 [facility] Comment on above: Performed By: #### C BCDF #### [address] [place] [address] MCHC (RBC) [Mass/Vol] 31.4 g/dL Low 32.0 - 36.0 [facility] Comment on above: Performed By: #### C BCDF #### [address] [place] [address] MCV (RBC) [Entitic vol] 86 fL Normal 80 - 100 [facility] Comment on above: Performed By: #### C BCDF #### [address] [place] [address] Monocytes (Bld) [#/Vol] 0.46 10*3/uL Normal 0.10 - 1.00 [facility] Comment on above: Performed By: #### C BCDF #### [address] [place] [address] Monocytes/100 WBC (Bld) 4.3 % Normal 2.0 - 10.0 [facility] Comment on above: Performed By: #### C BCDF #### [address] [place] [address] Neutrophils (Bld) [#/Vol] 6.85 10*3/uL Normal 1.20 - 7.70 [facility] Comment on above: Performed By: #### C BCDF #### [address] [place] [address] Neutrophils/100 WBC (Bld) 63.7 % Normal 40.0 - 80.0 [facility] Comment on above: Performed By: #### C BCDF #### [address] [place] [address] Platelets (Bld) [#/Vol] 271 10*3/uL Normal 150 - 450 [facility] Comment on above: Performed By: #### C BCDF #### [address] [place] [address] RBC 3.84 x10E12/L Low 4.00 - 5.20 [facility] Comment on above: Performed By: #### C BCDF #### [address] [place] [address] WBC (Bld) [#/Vol] 10.7 10*3/uL Normal 4.4 - 11.3 [facility] Comment on above: Performed By: #### C BCDF #### [address] [place] [address] FERRITINon 11-10-2022 FERRITIN 34 ug/L Normal 8 - 150 [facility] Comment on above: Performed By: #### F ERRI #### [address] [address] IRON + TIBCon 11-10-2022 % SATURATION 26 % Normal 25 - 45 [facility] Comment on above: Performed By: #### I RONT #### [address] [place] [address] Iron [Mass/Vol] 78 ug/dL Normal 35 - 150 [facility] Comment on above: Performed By: #### I RONT #### [address] [place] [address] TIBC 302 ug/dL Normal 240 - 445 [facility] Comment on above: Performed By: #### I RONT #### [address] [address] Office Visiton 09-09-2022 Follow-up visit Diagnoses/Problems Chronic pansinusitis (473.8) (J32.4) Nasal crusting (478.19) (J34.89) Nasal obstruction (478.19) (J34.89) Nasal vestibulitis (478.19) (J34.89) Provider Impressions Ms. LOLA HIGGINBOTHAM is a pleasant 32 year woman History of autoimmune condition with chronic nasal vestibulitis, crusting, MSSA. She has not really been consistent with the nasal ointment, I recommend consistent trial for at least a few weeks to see if this improves her symptoms. Return otherwise for regular debridements. The patient will follow up in about 4 months or sooner as needed. This electronic medical record note was created with the use of voice recognition software. Despite proofreading, typographical or grammatical errors may be present that could affect the meaning of content. Please call with any questions. I, Phill Downey, am scribing for, and in the presence of, Dr. Bonilla on 09/09/2022 at 1:00PM . I, Abdullahi Bonilla, personally attest to the documentation as scribed in my presence. I have reviewed the chart and agree that the record accurately reflects my performance of the history, exam, assessment, plan, and relevant diagnoses.? Chief Complaint FUV- Nasal congestion History of Present IllnessPatient is a 32 year old female presenting today for a follow-up of nasal congestion. She is doing well. No new or worsening symptoms. She is still seeing Dr. Orozco and is taking a new medication for her eyes for a recent flare from her Crohn's disease. Review of Systems ENT review of systems is negative except as noted per HPI. Active Problems Adrenal insufficiency (255.41) (E27.40) Anemia (285.9) (D64.9) Added by Problem List Migration; 2013-01-07; Moved to Suppressed Apr 09 2013 4:10PM ASCUS of cervix with negative high risk HPV (795.01) (R87.610) Autoimmune disease (279.49) (M35.9) BMI 32.0-32.9,adult (V85.32) (Z68.32) Chronic ethmoidal sinusitis (473.2) (J32.2) Chronic otitis externa (380.23) (H60.60) Chronic pansinusitis (473.8) (J32.4) Crohn's disease of small and large intestines with complication (555.2) (K50.819) Effective bowel preparation for surgery Folliculitis (704.8) (L73.9) Gallbladder polyp (575.6) (K82.4) Hearing loss of both ears due to cerumen impaction (389.8,380.4) (H61.23) Hemorrhoid (455.6) (K64.9) Hypothyroidism, 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) Impacted cerumen of both ears (380.4) (H61.23) Nasal crusting (478.19) (J34.89) Nasal obstruction (478.19) (J34.89) Nasal vestibulitis (478.19) (J34.89) Obesity (BMI 30.0-34.9) (278.00) (E66.9) 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) Syncope (780.2) (R55) Uveitis (364.3) (H20.9) Vitamin D deficiency (268.9) (E55.9) Well adult Well woman exam (no gynecological exam) (V70.0) (Z00.00) Past Medical History History of Acute Crohn's disease (555.9) (K50.90) History of Adrenal insufficiency (255.41) (E27.40) History of Adrenal insufficiency (255.41) (E27.40) History of Allergic conjunctivitis of both eyes (372.14) (H10.13) Resolved Date: 25 Feb 2019 History of ASCUS of cervix with negative high risk HPV (795.01) (R87.610) History of ASCUS of cervix with negative high risk HPV (795.01) (R87.610) History of Chronic anterior ethmoidal sinusitis (473.2) (J32.2) Resolved Date: 25 Feb 2019 History of Chronic iritis, 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) History of Chronic steroid use (V58.65) 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,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,B25.9) Resolved Date: 26 Nov 2016 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) Resolved Date: 26 Nov 2016 History of Epistaxis (784.7) (R04.0) History of anemia (V12.3) (Z86.2) History of chronic sinusitis (V12.69) (Z87.09) Resolved Date: 25 Feb 2019 History of chronic sinusitis (V12.69) (Z87.09) Resolved Date: 25 Feb 2019 History of deep venous thrombosis (V12.51) (Z86.718) Resolved Date: 14 Oct 2016 History of deviated nasal septum (V12.69) (Z87.09) Resolved Date: 25 Feb 2019 History of goiter (V12.29) (Z86.39) Resolved Date: 25 Feb 2019 History of impacted cerumen (V12.49) (Z86.69) Resolved Date: 14 Oct 2016 History of iron deficiency anemia (V12.3) (Z86.2) History of pulmonary embolism (V12.55) (Z86.711) Resolved Date: 14 Oct 2016 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) Resolved Date: 14 Jan 2016 IN 2011 was on Methimazole History of Hyperthyroidism (242.90) (E05.90) was on Methimazole History of Multinodular goiter (241.1) (E04.2) Resolved Date: 27 Aug 2018 History of Nasal turbinate hypertrophy (478.0) (J34.3) Resolved Date: 25 Feb 2019 History of On prednisone therapy (V58.65) (Z79.52) History of On prednisone therapy (V58.65) (Z79.52) Resolved Date: 27 Aug 2018 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 pt states vision is unchanged since last exam ou, denies pain ou, denies flashes ou, denies floaters ou. HISTORY OF PRESENT ILLNESS: HPI was performed by Dr. oTm Vasquez and scribed by Bradford Vasquez PAST MEDICAL HISTORY: OCULAR: Chronic Iritis OU Papilledema Posterior Uveitis Ptosis of RUL PROCEDURES : no eye surgery OCULAR SIGNIFICANT: Crohns disease ILLNESSES: History of Hyperthyroidism; History of iron deficiency anemia; History of Papilledema associated with retinal disorder; History of Chronic steroid use; History of Ptosis of right eyelid; History of Ptosis of right eyelid; History of anemia; History of Thyroid trouble; History of Acute Crohn`s disease; History of Posterior uveitis, both eyes; History of Chronic iritis, bilateral; History of Optic nerve edema; History of Unspecified chorioretinal inflammation, bilateral; 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; History of Periumbilical abdominal pain; History of ASCUS of cervix with negative high risk HPV; History of Adrenal insufficiency; History of Epistaxis; History of Adrenal insufficiency; History of ASCUS of cervix with negative high risk HPV; History of On prednisone therapy; Crohn`s disease of colon; History of chronic sinusitis; History of deviated nasal septum; History of Nasal turbinate hypertrophy; History of Allergic conjunctivitis of both eyes; History of chronic sinusitis; History of goiter; History of Chronic anterior ethmoidal sinusitis; History of Hearing loss of both ears due to cerumen impaction; History of Multinodular goiter; History of Impacted cerumen of both ears; History of On prednisone therapy; History of CMV colitis; History of Cytomegalovirus (CMV) viremia; History of toxic multinodular goiter; History of impacted cerumen; History of deep venous thrombosis; History of pulmonary embolism; 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; SURGERIES: History of Ileocecal resection; History Of Prior Surgery; HEAD/OCULAR TRAUMA: neg SOCIAL HISTORY: ALCOHOL: Occasional alcohol use; SMOKING: Never smoker; STREET DRUGS: No drug use; DIET: Caffeine Use; NOTE: Single; History of second hand smoke exposure (V87.39 Z77.22); FAMILY HISTORY: Family History Last Reviewed on:09/05/2022 FATHER: Family history of Thrombosis, portal vein, Family history of type 2 diabetes mellitus, Paternal history of Diabetes Mellitus CURRENT MEDICATIONS: azaTHIOprine 50 MG Oral Tablet - #135 Tablet, TAKE 1 AND 1/2 TABLETS DAILY, alternating 1 tablet every other day 75mg 4xweekly 50mg 3xweekly, 1 refill, Evaluate: 28-Jan-2023 Humira Pen 40 MG/0.4ML Subcutaneous Pen-injector Kit - #4 Kit, Pen-injector Kit, Inject 40 mg (1 pen) under the skin Once a Week as directed., NO REFILLS, Evaluate: 28-Jul-2022 Levothyroxine Sodium 125 MCG Oral Tablet - #90 Tablet, TAKE 1 TABLET DAILY DIRECTED., 3 refills, Evaluate: 25-Oct-2022 Pred Forte 1 % Ophthalmic Suspension - #1 15 ML Bottle, Suspension, I dropTID x 2 weeks 1 drop BID x 2weeks 1 drop QD x 2 weeks stop, NO REFILLS, Evaluate: 01-Sep-2022 Vitamin D 50 MCG (1999 [place]) Oral Capsule - #90 Capsule, Take 1 tablet daily, 3 refills, Evaluate ALLERGIES: Bactrim TABS:[Rash, Swelling], No Known Drug Allergies REVIEW OF SYSTEMS: GENERAL:uveiti s immunosuppresed GI:GI crohns flare october 2019 All other Review Of Systems negative Exam ORIENTATION, MOOD AND AFFECT: Alert AND oriented x3 RIGHT EYE LEFT EYE UNCORRECTED VA N/A N/A CORRECTED VA 20/20 20/20 PRESSURE METHOD: Applanation Applanation PRESSURES: 12 12 DATE-TIME: 09/05/2022 8:29:16 AM 09/05/2022 8:29:16 AM CUE SELECTOR: [email or web address] CONFRONTATION VF Full to count fingers Full to count fingers EXTERNAL EYE EXAM: LID: Good Position Good Position PUPIL: PERRL/no APD PERRL/no APD ADNEXA: Normal Normal MUSCLE BALANCE: Ortho OCULAR MOTILITY: Full ANTERIOR SEGMENT EXAM: TEARFILM: Good Good CONJUNCTIVA: White and quiet White and quiet CORNEA: superior pannus with minimal Clear thinning, old ANTERIOR CHAMBER: Deep and quiet Deep and quiet CELL/FLARE: 0/0 0/0 IRIS: Round and reactive Round and reactive LENS: Clear Clear ANTERIOR VITREOUS: Clear Clear FUNDUS EXAM: DILATION and NUMBING DROPS: Jeffery 2.5% AND Mydriacyl 1% OU 09/05/2022 08:28:54 AM CUP TO DISC: .2 tilted drusen disc .2 tilted OPTIC DISC: [place] and sharp [place] and sharp VITREOUS: Clear Clear MACULA: No (more content not included)... Normal [facility] C Reactive Protein, Serumon 08-19-2022 CRP [Mass/Vol] 0.41 mg/dL -[facility]iv [facility] Work Phone: Comment on above: REF VALUE< 1.00 C-REACTIVE PROTEINon 023 C-REACTIVE PROTEIN 0.41 mg/dL Normal [facility] Comment on above: Result Comment: REF VALUE < 1.00 Performed By: #### C RP #### [facility] [address] [place], [place] [id number] CBC AND DIFFERENTIALon 08-19 % AUTOMATED IMMATURE GRAN 0.2 % Normal 0.0 - 0.9 [facility] [place] Comment on above: Result Comment: Zulay ture Granulocyte Count (IG) includes promyelocytes, myelocytes and metamyelocytes but does not include bands. Percent differential counts (%) should be interpreted in the context of the absolute cell counts (cells/L). Performed By: #### C BCDF ####[facility] [place], [place] [id number] Basophils (Bld) [#/Vol] 0.05 10*3/uL Normal 0.00 - 0.10 [facility] [place] Comment on above: Performed By: #### C BCDF ####[facility] [place], [place] [id number] Basophils/100 WBC (Bld) 0.6 % Normal 0.0 - 2.0 [facility] [place] Comment on above: Performed By: #### C BCDF ####[address] [id number] Eosinophils (Bld) [#/Vol] 0.10 10*3/uL Normal 0.00 - 0.70 [facility] [place] Comment on above: Performed By: #### C BCDF ####[address] [id number] Eosinophils/100 WBC (Bld) 1.2 % Normal 0.0 - 6.0 [facility] [place] Comment on above: Performed By: #### C BCDF ####[address] [id number] Erythrocyte distribution width (RBC) [Ratio] 13.7 % Normal 11.5 - 14.5 [facility] [place] Comment on above: Performed By: #### C BCDF ####[address] [id number] Hematocrit (Bld) [Volume fraction] 37.4 % Normal 36.0 - 46.0 [facility] [place] Comment on above: Performed By: #### C BCDF ####[address] [id number] Hemoglobin (Bld) [Mass/Vol] 11.4 g/dL Low 12.0 - 16.0 [facility] [place] Comment on above: Performed By: #### C BCDF ####[address] [id number] Lymphocytes (Bld) [#/Vol] 2.80 10*3/uL Normal 1.20 - 4.80 [facility] [place] Comment on above: Performed By: #### C BCDF ####[address] [id number] Lymphocytes/100 WBC (Bld) 32.8 % Normal 13.0 - 44.0 [facility] [place] Comment on above: Performed By: #### C BCDF ####[address] [id number] MCHC (RBC) [Mass/Vol] 30.5 g/dL Low 32.0 - 36.0 [facility] [place] Comment on above: Performed By: #### C BCDF ####[facility] [place], [place] [id number] MCV (RBC) [Entitic vol] 88 fL Normal 80 - 100 [facility] [place] Comment on above: Performed By: #### C BCDF ####[address] [id number] Monocytes (Bld) [#/Vol] 0.38 10*3/uL Normal 0.10 - 1.00 [facility] [place] Comment on above: Performed By: #### C BCDF ####[address] [id number] Monocytes/100 WBC (Bld) 4.5 % Normal 2.0 - 10.0 [facility] [place] Comment on above: Performed By: #### C BCDF ####[address] [place], [place] [phone] Neutrophils (Bld) [#/Vol] 5.18 10*3/uL Normal 1.20 - 7.70 [facility] [place] Comment on above: Performed By: #### C BCDF ####[address] [id number] Neutrophils/100 WBC (Bld) 60.7 % Normal 40.0 - 80.0 [facility] [place] Comment on above: Performed By: #### C BCDF ####[address] [id number] Platelets (Bld) [#/Vol] 301 10*3/uL Normal 150 - 450 [facility] [place] Comment on above: Performed By: #### C BCDF ####[address] [id number] RBC 4.26 x10E12/L Normal 4.00 - 5.20 [facility] Comment on above: Performed By: #### C BCDF ####[facility] [place], [place] [phone] WBC (Bld) [#/Vol] 8.5 10*3/uL Normal 4.4 - 11.3 [facility] Comment on above: Performed By: #### C BCDF ####[facility] [place], [place] [phone] COMPREHENSIVE PANELon 2022 Albumin [Mass/Vol] 4.0 g/dL Normal 3.4 - 5.0 [facility] Comment on above: Performed By: #### C MP #### [address] [phone] ALP [Catalytic activity/Vol] 43 U/L Normal 33 - 110 [facility] [place] Comment on above: Performed By: #### C MP #### [address] [phone] ALT [Catalytic activity/Vol] 13 U/L Normal 7 - 45 [facility] [place] Comment on above: Result Comment: Sridevi ents treated with Sulfasalazine may generate falsely decreased results for ALT. Performed By: #### C MP #### [address] [id number] Anion gap [Moles/Vol] 10 mmol/L Normal 10 - 20 [facility] [place] Comment on above: Performed By: #### C MP #### [address] [id number] AST [Catalytic activity/Vol] 22 U/L Normal 9 - 39 [facility] [place] Comment on above: Performed By: #### C MP #### [address] [id number] Bilirubin [Mass/Vol] 0.5 mg/dL Normal 0.0 - 1.2 [facility] [place] Comment on above: Performed By: #### C MP #### [address] [id number] Calcium [Mass/Vol] 8.9 mg/dL Normal 8.6 - 10.3 [facility] Comment on above: Performed By: #### C MP #### [address] [id number] Chloride [Moles/Vol] 104 mmol/L Normal 98 - 107 [facility] [place] Comment on above: Performed By: #### C MP #### [address] [id number] Creatinine [Mass/Vol] 0.83 mg/dL Normal 0.50 - 1.05 [facility] [place] Comment on above: Performed By: #### C MP #### [address] [id number] eGFR FEMALE >90 Normal >90 [facility] [place] Comment on above: Result Comment: CALC ULATIONS OF ESTIMATED GFR ARE PERFORMED USING THE 2020 CKD-EPI STUDY REFIT EQUATION WITHOUT THE RACE VARIABLE FOR THE IDMS-TRACEABLE CREATININE METHODS. https://jasn.asnjournals.org/content//ASN.11699718 88 Performed By: #### C MP #### [address] [id number] Glucose [Mass/Vol] 89 mg/dL Normal 74 - 99 [facility] Comment on above: Performed By: #### C MP #### [address] [id number] HCO3 (Bld) [Moles/Vol] 28 mmol/L Normal 21 - 32 [facility] [place] Comment on above: Performed By: #### C MP #### [address] [phone] Potassium [Moles/Vol] 3.8 mmol/L Normal 3.5 - 5.3 [facility] [place] Comment on above: Performed By: #### C MP #### [address] [id number] Protein [Mass/Vol] 7.8 g/dL Normal 6.4 - 8.2 [facility] Comment on above: Performed By: #### C MP #### [address] [id number] Sodium [Moles/Vol] 138 mmol/L Normal 136 - 145 [facility] Comment on above: Performed By: #### C MP #### [address] [phone] Urea nitrogen [Mass/Vol] 12 mg/dL Normal 6 - 23 [facility] [place] Comment on above: Performed By: #### C MP #### [address] [id number] Complete Blood Count + Diffe april 08-19-2022 Basophils/100 WBC (Bld) 0.6 % 0.0 - 2.0 [facility] Work Phone: Erythrocyte distribution width (RBC) [Ratio] 13.7 % See Below [facility] Work Phone: Comment on above: Reference Range: 11. 5 - 14.5 Hematocrit (Bld) [Volume fraction] 37.4 % See Below [facility] Work Phone: Comment on above: Reference Range: 36. 0 - 46.0 Hemoglobin (Bld) [Mass/Vol] 11.4 g/dL below low threshold See Below [employer] [facility] Work Phone: Comment on above: Reference Range: 12. 0 - 16.0 Lymphocytes/100 WBC (Bld) 32.8 % See Below [facility] Work Phone: Comment on above: Reference Range: 13. 0 - 44.0 MCHC (RBC) [Mass/Vol] 30.5 g/dL below low threshold See Below [employer] [facility] Work Phone: Comment on above: Reference Range: 32. 0 - 36.0 MCV (RBC) [Entitic vol] 88 fL 80 - 100 [employer] [facility] Work Phone: Monocytes/100 WBC (Bld) 4.5 % 2.0 - 10.0 [employer] [facility] Work Phone: Neutrophils/100 WBC (Bld) 60.7 % See Below [facility] Work Phone: Comment on above: Reference Range: 40. 0 - 80.0 Platelets (Bld) [#/Vol] 301 10*3/uL 150 - 450 [facility] Work Phone: RBC (Bld) [#/Vol] 4.26 {x10E12/L} See Below [facility] Work Phone: Comment on above: Reference Range: 4.0 0 - 5.20 WBC (Bld) [#/Vol] 8.5 10*3/uL 4.4 - 11.3 [facility] Work Phone: Complete Blood Count + Differential 0.05 {x10E9/L} See Below [facility] Work Phone: Comment on above: Reference Range: 0.0 0 - 0.10 Complete Blood Count + Differential 0.10 {x10E9/L} See Below [facility] Work Phone: Comment on above: Reference Range: 0.0 0 - 0.70 Complete Blood Count + Differential 0.38 {x10E9/L} See Below [facility] Work Phone: Comment on above: Reference Range: 0.1 0 - 1.00 Complete Blood Count + Differential 2.80 {x10E9/L} See Below [facility] [employer] [facility] Work Phone: Comment on above: Reference Range: 1.2 0 - 4.80 Complete Blood Count + Differential 5.18 {x10E9/L} See Below [facility] [employer] [facility] Work Phone: Comment on above: Reference Range: 1.2 0 - 7.70 Complete Blood Count + Differential 1.2 % 0.0 - 6.0 [facility] Work Phone: Complete Blood Count + Differential 0.2 % 0.0 - 0.9 [facility] Work Phone: Comment on above: Immature Granulocyte Count (IG) includes promyelocytes, myelocytes and metamyelocytes but does not include bands. Percent differential counts (%) should be interpreted in the context of the absolute cell counts (cells/L). Established Visit (Gastroent erology)on 08-19-2022 Established Visit (Gastroenterology) Diagnoses/Problems Assessed Crohn's disease of small and large intestines with complication (555.2) (K50.819) Uveitis (364.3) (H20.9) Orders Crohn's disease of small and large intestines with complication Continue: Humira Pen 40 MG/0.4ML Subcutaneous Pen-injector Kit; Inject 40 mg (1 pen) under the skin Once a Week as directed Rx By: Scarlett Martin; Dispense: 56 Days ; #:4 Kit; Refill: 0;For: Crohn's disease of small and large intestines with complication; JABARI = N; Ver[facility]; Last Updated By: July Gorman; 08/19/2022 10:21:12 AM 6-Mercaptopurine Metabolites, Level; Status:Hold For - Exact Date; Requested for:Approx 19Oct2022; Perform:Lab Services - Lab To Draw (Blood Test);Ordered; For:Crohn's disease of small and large intestines with complication; Ordered By:Padma Orozco; Continue: Pred Forte 1 % Ophthalmic Suspension (PrednisoLONE Acetate); I dropTID x 2 weeks 1 drop BID x 2weeks 1 drop QD x 2 weeks stop Rx By: Tom Vasquez; Dispense: 31 Days ; #:1 X 15 ML Bottle; Refill: 0;For: Crohn's disease of small and large intestines with complication; JABARI = N; Verified Transmission to [facility]; Last Updated By: July Gorman; 08/19/2022 10:21:12 AM C Reactive Protein, Serum; Status:Active; Requested for:19Aug2022; Perform:Lab Services - Lab To Draw (Blood Test); Due:[id number];Ordered; For:Crohn's disease of small and large intestines with complication; Ordered By:Padma Orozco; Complete Blood Count + Differential; Status:Active; Requested for:[id number]; Perform:Lab Services - Lab To Draw (Blood Test); Due:[id number];Ordered; For:Crohn's disease of small and large intestines with complication; Ordered By:Padma Orozco; Comprehensive Metabolic Panel; Status:Active; Requested for:[id number]; Perform:Lab Services - Lab To Draw (Blood Test); Due:[id number];Ordered; For:Crohn's disease of small and large intestines with complication; Ordered By:Padma Orozco; Sedimentation Rate, Erythrocyte; Status:Active; Requested for:[id number]; Perform:Lab Services - Lab To Draw (Blood Test); Due:[id number];Ordered; For:Crohn's disease of small and large intestines with complication; Ordered By:Padma Orozco; Crohn's disease of small and large intestines with complication, Uveitis Continue: azaTHIOprine 50 MG Oral Tablet; TAKE 1 AND 1/2 TABLETS DAILY, alternating 1 tablet every other day 75mg 4xweekly 50mg 3xweekly Rx By: Padma Orozco; Dispense: 90 Days ; #:135 Tablet; Refill: 1;For: Crohn's disease of small and large intestines with complication, Uveitis; JABARI = N; [facility]; Last Updated By: July Gorman; 08/19/2022 10:21:12 AM Hypothyroidism, postsurgical Continue: Levothyroxine Sodium 125 MCG Oral Tablet; TAKE 1 TABLET DAILY DIRECTED Rx By: Wendi Hewitt; Dispense: 90 Days ; #:90 Tablet; Refill: 3;For: Hypothyroidism, postsurgical; JABARI = N; Verified Transmission to [facility] 1985; Last Updated By: July Gorman; 08/19/2022 10:21:12 AM Vitamin D deficiency Continue: Vitamin D 50 MCG (1999) Oral Capsule; Take 1 tablet daily Rx By: Matthew Orozco; Dispense: 0 Days ; #:90 Capsule; Refill: 3;For: Vitamin D deficiency; JABARI = N; Verified Transmission to [facility] 1985; Last Updated By: July Gorman; 08/19/2022 10:21:12 AM Patient Discussion/Summary Please obtain your blood work today to evaluate the inflammatory markers and your white blood cell count now that you have started the azathioprine. I would also like you to get your blood work drawn in October to check the metabolites for the azathioprine now that we have started it again. We will see you back in follow-up in 6 months Provider Impressions 32-year-old female presents for follow-up of longstanding Crohn's disease affecting the small and large bowel. She is currently on Humira weekly and azathioprine was added due to uveitis. She is feeling well overall and her last colonoscopy in 2021 was consistent with no active disease. She is feeling well overall and denies any alarm symptoms. We will check labs today including a CBC given that she is started on the azathioprine in July. She will also check a 6-TG metabolite level in October of this year. She will follow-up in 6 months Chief Complaint f/u crohns History of Present Illnesshere for f/u crohns doing well on weekly humira and azathioprine - AZN added due to uveitis - previous dose 75mg 4x aweek, 50mg 3x a week due to inject 4/6 daily BM's--denies blood mucous or melena last colonoscopy 04/2022--no active disease the patient denies any skin rashes, joint pain or stiffness, mucous membrane ulcerations, or eye pain/visual disturbances. weight stable appetite nl feels well overall Review of Systems Constitutional: no fever, no chills, not feeling tired and no recent weight loss. ENT: no lymphadenopathy. Cardiovascular: no shortness of breath and no chest pain. Respiratory: no cough. Gastrointestinal: as no (more content not included)... Normal [facility] - Chemistry and C hemistry - challengeon 08-19-2022 Albumin BCP dye [Mass/Vol] 4.0 g/dL 3.4 - 5.0 [facility] Work Phone: ALP [Catalytic activity/Vol] 43 U/L 33 - 110 [facility] Work Phone: ALT With P-5'-P [Catalytic activity/Vol] 13 U/L 7 - 45 [facility] Work Phone: Comment on above: Patients treated wit h Sulfasalazine may generate falsely decreased results for ALT. Anion gap [Moles/Vol] 10 mmol/L 10 - 20 [facility] Work Phone: AST With P-5'-P [Catalytic activity/Vol] 22 U/L 9 - 39 [facility] Work Phone: Bilirubin [Mass/Vol] 0.5 mg/dL 0.0 - 1.2 [facility] Work Phone: Calcium [Mass/Vol] 8.9 mg/dL 8.6 - 10.3 [facility] Work Phone: Chloride [Moles/Vol] 104 mmol/L 98 - 107 [facility] Work Phone: CO2 [Moles/Vol] 28 mmol/L 21 - 32 [facility] Work Phone: Creatinine [Mass/Vol] 0.83 mg/dL See Below [facility] Work Phone: Comment on above: Reference Range: 0.5 0 - 1.05 Glucose [Mass/Vol] 89 mg/dL 74 - 99 [facility] Work Phone: Potassium [Moles/Vol] 3.8 mmol/L 3.5 - 5.3 [facility] Work Phone: Protein [Mass/Vol] 7.8 g/dL 6.4 - 8.2 [facility] Work Phone: Sodium [Moles/Vol] 138 mmol/L 136 - 145 [facility] Work Phone: Urea nitrogen [Mass/Vol] 12 mg/dL 6 - 23 [facility] Work Phone: No Panel Informationon 08-19 >90 >90 [facility] Work Phone: Comment on above: CALCULATIONS OF MITCH MATED GFR ARE PERFORMED USING THE 2020 CKD-EPI STUDY REFIT EQUATION WITHOUT THE RACE VARIABLE FOR THE IDMS-TRACEABLE CREATININE METHODS.https://jasn.asnjournals.org/content/early/ASN. 9472715452 SEDIMENTATION RATE, ERYTHROC YTEon 08-19-2022 SEDIMENTATION RATE, ERYTHROCYTE 83 mm/h High 0 - 20 [facility] [place] Comment on above: Result Comment: Danyel farmer note new reference ranges as of 09/23/2021. Performed By: #### E SRWS ####[id number] [place], [place] [id number] Sedimentation Rate, Erythroc yteon 08-19-2022 ESR (Bld) [Velocity] 83 mm/h above high threshold 0 - 20 [facility] Work Phone: Comment on above: Please note new refe rence ranges as of 09/23/2021. Chart Updateon 08-01-2022 Chart Update Diagnoses/Problems Crohn's disease of small and large intestines with complication (555.2) (K50.819) Uveitis (364.3) (H20.9) Orders Crohn's disease of small and large intestines with complication, Uveitis Renew: azaTHIOprine 50 MG Oral Tablet; TAKE 1 AND 1/2 TABLETS DAILY, alternating 1 tablet every other day 75mg 4xweekly 50mg 3xweekly Rx By: Padma Orozco; Dispense: 90 Days ; #:135 Tablet; Refill: 1; For: Crohn's disease of small and large intestines with complication, Uveitis; JABARI = N; [facility] Chart Update Pt with Crohns small and large bowel - sx 2007 - s/p resection of small bowel in 2015. She was on AZN for many years but flared in 2018 and transitioned to Humira every other week 5/21 - increased to weekly due to suboptimal drug level recent delivery - now with uveitis - will add AZN 75mg 3 days a week and 50mg 4 days a week - she had elevated 6TG 2019 (434 , 581,600) in the past on this regimen in addition to Humira weekly will arrange f/u in the office Signatures Electronically signed by : Padma Orozco MD; Aug 01 2022 12:36PM EST (Author) Reviewed by : Tom Vasquez MD; Aug 07 2022 12:03PM EST [facility] Op[facility] Eye [facility] 2022 Ophthalmic Eye Exam DOCUMENT REVIEWED BY : Tom Vasquez DOCUMENT SIGNED ELECTRONICALLY BY Tom Vasquez ON 08/01/2022 12:27:36 PM [id number] [place], [address] THIS DOCUMENT WAS CREATED ON: 08/01/2022 10:17:20 AM BY: Tom Fontana performed [id number] Exam Date: Monday, August 01, 2022 PATIENT NAME: LOLA HIGGINBOTHAM DATE: 1990 AGE: 32 GENDER: Female RACE: PRIMARY CARE PHYSICIAN: Matthew Orozco History Chief Complaint/Reason For Visit: 32yof 6w f/up. NOTE: OS is red today. recently may have had an iritis flare up the last 2 weeks OS. pt states vision is unchanged since last exam ou, denies pain ou, denies flashes ou, denies floaters ou. HISTORY OF PRESENT ILLNESS: HPI was performed by Dr. Tom Vasquez and scribed by Bradford Vasquez FAMILY HISTORY: Family History Last Reviewed on:06/23/2022 FATHER: Family history of Thrombosis, portal vein, Family history of type 2 diabetes mellitus, Paternal history of Diabetes Mellitus CURRENT MEDICATIONS: Humira Pen 40 MG/0.4ML Subcutaneous Pen-injector Kit - #4 Kit, Pen-injector Kit, Inject 40 mg (1 pen) under the skin Once a Week as directed., NO REFILLS, Evaluate: 28-Jul-2022 Levothyroxine Sodium 125 MCG Oral Tablet - #90 Tablet, TAKE 1 TABLET DAILY DIRECTED., 3 refills, Evaluate: 25-Oct-2022 Vitamin D 50 MCG (1999 UT) Oral Capsule - #90 Capsule, Take 1 tablet daily, 3 refills, Evaluate ALLERGIES: Bactrim TABS:[Rash, Swelling], No Known Drug Allergies Exam ORIENTATION, MOOD AND AFFECT: Alert AND oriented x3 RIGHT EYE LEFT EYE UNCORRECTED VA N/A N/A CORRECTED VA 20/20 20/20 PRESSURE METHOD: Applanation Applanation PRESSURES: 13 11 DATE-TIME: 08/01/2022 8:32:14 AM 08/01/2022 8:32:14 AM CUE SELECTOR: maren [email or web address] CONFRONTATION VF Full to count fingers Full to count fingers EXTERNAL EYE EXAM: LID: Good Position Good Position PUPIL: PERRL/no APD PERRL/no APD ADNEXA: Normal Normal MUSCLE BALANCE: Ortho OCULAR MOTILITY: Full ANTERIOR SEGMENT EXAM: TEARFILM: Good Good CONJUNCTIVA: White and quiet White and quiet CORNEA: superior pannus with minimal Clear thinning, old ANTERIOR CHAMBER: Deep and quiet Deep and quiet CELL/FLARE: 0/0 0/0 IRIS: Round and reactive Round and reactive LENS: Clear Clear ANTERIOR VITREOUS: Clear Clear FUNDUS EXAM: DILATION and NUMBING DROPS: Jeffery 2.5% AND Mydriacyl 1% OU 08/01/2022 08:16:26 AM CUP TO DISC: .2 tilted drusen disc .2 tilted OPTIC DISC: [place] and sharp [place] and sharp VITREOUS: Clear Clear MACULA: Normal reflex Normal reflex VESSELS: Normal Normal PERIPHERY: myopic fundus no lattice or myopic fundus no lattice or tears tears Impression 1 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 2 K50.90 Crohn Disease-Stable 3 H20.13 Chronic Iritis, Bilateral-Stable 4 H30.93 Posterior Uveitis, Both Eyes-Improving 5 H02.401 Ptosis Of Right Eyelid-Stable Discussion she may have drusen OD needs USG and OPTOS FA OD also OPTOS autofluorescnece before FA today left eye has mild episcleritis Plan TODAY (OU) - OCT Macula By:Tom Vasquez PROCEDURE Fundus image : Fundus: no edema Optic nerve : No edema OU no NVD Macula NO CME OU but dull reflex OU Fluorescein angiogram (FA) performed after appropriate counselling and discussion with consent Transit OD flow time normal (hand to eye) Late vascular leakage venous OD temporal OD more than OS She has optic disc leakage OU no CME OU This FA is c/w actibve posterior uveitis OU Ideally GI should augment immunomoudlation emailed GI f/u 3m created by:Tom Vasquez Tom Vasquez DOCUMENT CREATE DATE: 08/01/2022 10:17:20 AM The Following Users Updated This Patient Encounter: Susan Vasquez Received for:Tom Vasquez MD Aug 01 2022 12:27PM Eastern Standard Time Normal [facility] CBC AUTO DIFFon 07-03-2022 BASO # 0.1 103/ul Normal 0.0-0.[address] [facility] Comment on above: Performed By: #### A ST, ALT, LDH, URIC #### [facility] [address] [place] [address] Dr. Giuseppe Salmeron Basophils/100 WBC (Bld) 0.6 % Normal 0.2-2.[address] [facility] Comment on above: Performed By: #### A ST, ALT, LDH, URIC #### [facility] [address] [address] [address] Giuseppe Salmeron EO # 0.2 103/ul Normal 0.0-0.[address] [facility] Comment on above: Performed By: #### A ST, ALT, LDH, URIC #### [facility] [address] [address] [address] Giuseppe Salmeron Eosinophils/100 WBC (Bld) 1.2 % Normal 0.9-7.[address] [facility] Comment on above: Performed By: #### A ST, ALT, LDH, URIC #### [facility] [address] [place] [address] Dr. Giuseppe Salmeron Erythrocyte distribution width (RBC) [Ratio] 13.9 % Normal 11.0-15.[address] [facility] Comment on above: Performed By: #### A ST, ALT, LDH, URIC #### [facility] [address] [place] [address] Dr. Giuseppe Salmeron Hematocrit (Bld) [Volume fraction] 38.5 % Normal 36.0-48.0 [facility] Comment on above: Performed By: #### A ST, ALT, LDH, URIC #### [facility] [address] [place] [address] Dr. Giuseppe Salmeron Hemoglobin (Bld) [Mass/Vol] 12.2 g/dL Normal 12.0-16.0 [facility] Comment on above: Performed By: #### A ST, ALT, LDH, URIC #### [facility] [address] [place] [address] Dr. Giuseppe Salmeron IG # 0.05 10e3/ul Critically high 0.00-0.03 [facility] Comment on above: Performed By: #### A ST, ALT, LDH, URIC #### [facility] [address] [place] [address] Dr. Giuseppe Salmeron IG % 0.4 % Normal 0.0-0.5 [facility] Comment on above: Performed By: #### A ST, ALT, LDH, URIC #### [facility] [address] [place] [address] Dr. Giuseppe Salmeron LYMPH # 3.8 103/ul Normal 1.2-3.8 [facility] Comment on above: Performed By: #### A ST, ALT, LDH, URIC #### [facility] [address] [place] [address] Dr. Giuseppe Salmeron Lymphocytes/100 WBC (Bld) 29.1 % Normal 20.5-60.0 [facility] Comment on above: Performed By: #### A ST, ALT, LDH, URIC #### [facility] [address] [place] [address] Dr. Giuseppe Salmeron MANUAL DIFF REQ NO Normal [facility] Comment on above: Performed By: #### A ST, ALT, LDH, URIC #### [facility] [address] [place] [address] Dr. Giuseppe Salmeron MCH (RBC) [Entitic mass] 27.1 pg Normal 26.7-34.[address] [facility] Comment on above: Performed By: #### A ST, ALT, LDH, URIC #### [facility] [address] [place] [address] Dr. Giuseppe Salmeron MCHC (RBC) [Mass/Vol] 31.7 g/dL Normal 29.9-35.[address] [facility] Comment on above: Performed By: #### A ST, ALT, LDH, URIC #### [facility] [address] [place] [address] Dr. Giuseppe Salmeron MCV (RBC) [Entitic vol] 85.6 fL Normal 81.0-99.[address] [facility] Comment on above: Performed By: #### A ST, ALT, LDH, URIC #### [facility] [address] [place] [address] Dr. Giuseppe Salmeron MONO # 0.8 103/ul Normal 0.3-0.[address] [facility] Comment on above: Performed By: #### A ST, ALT, LDH, URIC #### [facility] [address] [place] [address] Dr. Giuseppe Salmeron Monocytes/100 WBC (Bld) 5.8 % Normal 1.7-12.[address] [facility] Comment on above: Performed By: #### A ST, ALT, LDH, URIC #### [facility] [address] [place] [address] Dr. Giuseppe Salmeron NEUT # 8.2 103/ul Critically high 1.4-6.5 [facility] Comment on above: Performed By: #### A ST, ALT, LDH, URIC #### [facility] [address] [place] [address] Dr. Giuseppe Salmeron Neutrophils/100 WBC (Bld) 62.9 % Normal 43.0-75.[address] [facility] Comment on above: Performed By: #### A ST, ALT, LDH, URIC #### [facility] [address] [place] [address] Dr. Giuseppe Salmeron Platelet mean volume (Bld) [Entitic vol] 9.7 fL Normal 9.5-13.[address] [facility] Comment on above: Performed By: #### A ST, ALT, LDH, URIC #### [facility] [address] [place] [address] Dr. Giuseppe Salmeron PLT 263 103/ul Normal 150-[address] [facility] Comment on above: Performed By: #### A ST, ALT, LDH, URIC #### [facility] [address] [place] [address] Dr. Giuseppe Salmeron RBC 4.50 106/ul Normal 4.20-5.[address] [facility] Comment on above: Performed By: #### A ST, ALT, LDH, URIC #### [facility] [address] [place] [address] Dr. Giuseppe Salmeron WBC 13.0 103/ul Critically high 4.0-11.0 [facility] Comment on above: Performed By: #### A ST, ALT, LDH, URIC #### [facility] [address] [place] [address] Dr. Giuseppe Salmeron [facility]on 06-18 SARS-CoV-2 (COVID-19) RNA MICHAEL+probe Ql (Unsp spec) Not detected Normal NOT DETECTED [facility] Comment on above: Result Comment: When diagnostic testing is negative, the possibility of a false negative should be considered in the context of a patient's recent exposures and the presence of clinical signs and symptoms consistent with SARS-CoV-2. This test is not yet approved or cleared by the [place] FDA. When there are no FDA-approved or cleared tests available, and other criteria are met, FDA can make tests available under an emergency access mechanism called an Emergency Use Authorization (EUA). The EUA for this test is supported by the Electron Gun Inspector of Health and Human Service's declaration that circumstances exist to justify the emergency use of in vitro diagnostics for the detection and/or diagnosis of the virus that causes COVID-19. This EUA will remain in effect for the duration of the COVID-19 declaration justifying emergency of IVDs, unless it is terminated or revoked by the FDA (after which the test may no longer be used). Performed By: #### C VDTBH #### [facility] [address] [place], [place] [address] Dr. Giuseppe Salmeron INFLUENZA A AND B AGon 07-03 INFLUENZA A AG Negative Normal NEGATIVE SEE COMMENT [facility] Comment on above: Performed By: #### I NFLUAB #### [facility] [address] [place], [place] [address] Dr. Giuseppe Salmeron INFLUENZA B AG Negative Normal NEGATIVE SEE COMMENT [facility] Comment on above: Performed By: #### I NFLUAB #### [facility] [address] [place], [place] [address] Dr. Giuseppe Salmeron MONOon 07-03-2022 Monocytes (Bld) [#/Vol] Negative Normal NEGATIVE [facility] Comment on above: Performed By: #### A ST, ALT, LDH, URIC #### [facility] [address] [place], [place] [address] Dr. Giuseppe Salmeron STREPT SCREENon 07-03-2022 STREP SCREEN A Positive Abnormal NEGATIVE The [facility] Comment on above: Performed By: #### S SCRN #### [facility] [address] [place], [place] [address] Dr. Giuseppe Salmeron Ophthalmic Eye Examon 2022 Ophthalmic Eye Exam DOCUMENT REVIEWED BY : Tom Vasquez DOCUMENT SIGNED ELECTRONICALLY BY Tom Vasquez ON 06/23/2022 08:35:16 AM [facility] [id number] [place], [address] [phone] THIS DOCUMENT WAS CREATED ON: 06/23/2022 08:35:09 AM BY: Tom Fontana performed [id number] Exam Date: Thursday, June 23, 2022 PATIENT NAME: LOLA HIGGINBOTHAM DATE: 1990 AGE: 32 GENDER: Female RACE: History Chief Complaint/Reason For Visit: 32yof 6mf/up pt states vision is unchanged since last exam ou, denies pain ou, denies flashes ou, denies floaters ou. HISTORY OF PRESENT ILLNESS: HPI was performed by Dr. Tom Vasquez and scribed by Bradford Vasquez PAST MEDICAL HISTORY: OCULAR: Chronic Iritis OU Papilledema Posterior Uveitis Ptosis of RUL PROCEDURES : no eye surgery OCULAR SIGNIFICANT: Crohns disease ILLNESSES: History of Hyperthyroidism; History of iron deficiency anemia; History of Papilledema associated with retinal disorder; History of Chronic steroid use; History of Ptosis of right eyelid; History of Ptosis of right eyelid; History of anemia; History of Thyroid trouble; History of Acute Crohn`s disease; History of Posterior uveitis, both eyes; History of Chronic iritis, bilateral; History of Optic nerve edema; History of Unspecified chorioretinal inflammation, bilateral; 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; History of Periumbilical abdominal pain; History of ASCUS of cervix with negative high risk HPV; History of Adrenal insufficiency; History of Epistaxis; History of Adrenal insufficiency; History of ASCUS of cervix with negative high risk HPV; History of On prednisone therapy; Crohn`s disease of colon; History of chronic sinusitis; History of deviated nasal septum; History of Nasal turbinate hypertrophy; History of Allergic conjunctivitis of both eyes; History of chronic sinusitis; History of goiter; History of Chronic anterior ethmoidal sinusitis; History of Hearing loss of both ears due to cerumen impaction; History of Multinodular goiter; History of Impacted cerumen of both ears; History of On prednisone therapy; History of CMV colitis; History of Cytomegalovirus (CMV) viremia; History of toxic multinodular goiter; History of impacted cerumen; History of deep venous thrombosis; History of pulmonary embolism; 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; SURGERIES: History of Ileocecal resection; History Of Prior Surgery; HEAD/OCULAR TRAUMA: neg SOCIAL HISTORY: ALCOHOL: Occasional alcohol use; SMOKING: Never smoker; STREET DRUGS: No drug use; DIET: Caffeine Use; NOTE: Single; History of second hand smoke exposure (V87.39 Z77.22); FAMILY HISTORY: Family History Last Reviewed on:06/23/2022 FATHER: Family history of Thrombosis, portal vein, Family history of type 2 diabetes mellitus, Paternal history of Diabetes Mellitus CURRENT MEDICATIONS: Humira Pen 40 MG/0.4ML Subcutaneous Pen-injector Kit - #4 Kit, Pen-injector Kit, Inject 40 mg (1 pen) under the skin Once a Week as directed., NO REFILLS, Evaluate: 28-Jul-2022 Levothyroxine Sodium 125 MCG Oral Tablet - #90 Tablet, TAKE 1 TABLET DAILY DIRECTED., 3 refills, Evaluate: 25-Oct-2022 Vitamin D 50 MCG (1999 UT) Oral Capsule - #90 Capsule, Take 1 tablet daily, 3 refills, Evaluate ALLERGIES: Bactrim TABS:[Rash, Swelling], No Known Drug Allergies REVIEW OF SYSTEMS: GENERAL:uveiti s immunosuppresed GI:GI crohns flare october 2019 All other Review Of Systems negative Exam ORIENTATION, MOOD AND AFFECT: Alert AND oriented x3 RIGHT EYE LEFT EYE UNCORRECTED VA N/A N/A CORRECTED VA 20/20 20/20 PRESSURE METHOD: Applanation Applanation PRESSURES: 15 14 DATE-TIME: 06/23/2022 8:21:32 AM 06/23/2022 8:21:32 AM CUE SELECTOR: jessica lopez CONFRONTATION VF Full to count fingers Full to count fingers EXTERNAL EYE EXAM: LID: Good Position Good Position PUPIL: PERRL/no APD PERRL/no APD ADNEXA: Normal Normal MUSCLE BALANCE: Ortho OCULAR MOTILITY: Full ANTERIOR SEGMENT EXAM: TEARFILM: Good Good CONJUNCTIVA: White and quiet White and quiet CORNEA: superior pannus with minimal Clear thinning, old ANTERIOR CHAMBER: Deep and quiet Deep and quiet CELL/FLARE: 0/0 0/0 IRIS: Round and reactive Round and reactive LENS: Clear Clear ANTERIOR VITREOUS: Clear Clear FUNDUS EXAM: DILATION and NUMBING DROPS: Jeffery 2.5% AND Mydriacyl 1% OU 06/23/2022 08:19:24 AM CUP TO DISC: .2 tilted drusen disc .2 tilted OPTIC DISC: [place] and sharp [place] and sharp VITREOUS: Clear Clear MACULA: Normal reflex Normal reflex VESSELS: Normal Normal PERIPHERY: myopic fundus no lattice or myopic fundus no lattice or tears tears Impression 1 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 Normal [facility] Office Visiton 05-27-2022 Follow-up visit Diagnoses/Problems Chronic pansinusitis (473.8) (J32.4) Provider Impressions Ms. LOLA HIGGINBOTHAM is a pleasant 31 year woman Debridement performed, otherwise doing well. Encouraged to increase humidification and moisture, including ointment especially during the dry/winter months. The patient will follow up in about 3-4 months or sooner as needed. This electronic medical record note was created with the use of voice recognition software. Despite proofreading, typographical or grammatical errors may be present that could affect the meaning of content. Please call with any questions. I, Phill Downey, am scribing for, and in the presence of, Dr. Bonilla on 05/27/2022 at 11:45AM . I, Abdullahi Bonilla, personally attest to the documentation as scribed in my presence. I have reviewed the chart and agree that the record accurately reflects my performance of the history, exam, assessment, plan, and relevant diagnoses.? Chief Complaint FUV- Nasal congestion History of Present IllnessPatient is a 31 year old female presenting today for a follow-up of nasal congestion. She reports using her ointment occasionally and no new or worsening symptoms. Review of Systems ENT review of systems is negative except as noted per HPI. Active Problems Adrenal insufficiency (255.41) (E27.40) Anemia (285.9) (D64.9) Added by Problem List Migration; 2013-01-07; Moved to Suppressed Apr 09 2013 4:10PM ASCUS of cervix with negative high risk HPV (795.01) (R87.610) Autoimmune disease (279.49) (M35.9) BMI 32.0-32.9,adult (V85.32) (Z68.32) Chronic ethmoidal sinusitis (473.2) (J32.2) Chronic otitis externa (380.23) (H60.60) Chronic pansinusitis (473.8) (J32.4) Crohn's disease of small and large intestines with complication (555.2) (K50.819) Effective bowel preparation for surgery Folliculitis (704.8) (L73.9) Gallbladder polyp (575.6) (K82.4) Hearing loss of both ears due to cerumen impaction (389.8,380.4) (H61.23) Hemorrhoid (455.6) (K64.9) Hypothyroidism, 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) Impacted cerumen of both ears (380.4) (H61.23) Nasal crusting (478.19) (J34.89) Nasal obstruction (478.19) (J34.89) Nasal vestibulitis (478.19) (J34.89) Obesity (BMI 30.0-34.9) (278.00) (E66.9) 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) Syncope (780.2) (R55) Uveitis (364.3) (H20.9) Vitamin D deficiency (268.9) (E55.9) Well adult Well woman exam (no gynecological exam) (V70.0) (Z00.00) Past Medical History History of Acute Crohn's disease (555.9) (K50.90) History of Adrenal insufficiency (255.41) (E27.40) History of Adrenal insufficiency (255.41) (E27.40) History of Allergic conjunctivitis of both eyes (372.14) (H10.13) Resolved Date: 25 Feb 2019 History of ASCUS of cervix with negative high risk HPV (795.01) (R87.610) History of ASCUS of cervix with negative high risk HPV (795.01) (R87.610) History of Chronic anterior ethmoidal sinusitis (473.2) (J32.2) Resolved Date: 25 Feb 2019 History of Chronic iritis, 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) History of Chronic steroid use (V58.65) 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,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,B25.9) Resolved Date: 26 Nov 2016 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) Resolved Date: 26 Nov 2016 History of Epistaxis (784.7) (R04.0) History of anemia (V12.3) (Z86.2) History of chronic sinusitis (V12.69) (Z87.09) Resolved Date: 25 Feb 2019 History of chronic sinusitis (V12.69) (Z87.09) Resolved Date: 25 Feb 2019 History of deep venous thrombosis (V12.51) (Z86.718) Resolved Date: 14 Oct 2016 History of deviated nasal septum (V12.69) (Z87.09) Resolved Date: 25 Feb 2019 History of goiter (V12.29) (Z86.39) Resolved Date: 25 Feb 2019 History of impacted cerumen (V12.49) (Z86.69) Resolved Date: 14 Oct 2016 History of iron deficiency anemia (V12.3) (Z86.2) History of pulmonary embolism (V12.55) (Z86.711) Resolved Date: 14 Oct 2016 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) Resolved Date: 14 Jan 2016 IN 2011 was on Methimazole History of Hyperthyroidism (242.90) (E05.90) was on Methimazole History of Multinodular goiter (241.1) (E04.2) Resolved Date: 27 Aug 2018 History of Nasal turbinate hypertrophy (478.0) (J34.3) Resolved Date: 25 Feb 2019 History of On prednisone therapy (V58.65) (Z79.52) History of On prednisone therapy (V58.65) (Z79.52) Resolved Date: 27 Aug 2018 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 Normal [facility] Tobacco Screening.on 023 Adult depression screening assessment No [facility] [employer] [address] Work Phone: Fall risk assessment a) No falls within the last year [facility] [address] Work Phone: Tobacco use status [facility] b) No [phone] Work Phone: Clinic Note - Heme Onc Ed petersen 05-14-2022 Clinic Note - Heme Onc Scheduling Retrieve Patient Instructions: Patient Instructions: Patient Instructions: RetrievePatient Instructions Instructions Typenutrition Instructions Your iron deficiency anemia is resolved at this time. I will see you back in 6 months to follow up with labs done a few days prior to the visit. End of Visit Documentation: Clinic Location/Phone Number: Clinic Location/ End Of Visit MU Report Item: Visit Summary given or mailed to patientyes Electronic Signatures: Renetta Jones (SEC) (Signed 14-May-2022 08:55) Authored: Retrieve Patient Instructions, End of Visit Documentation Last Updated: 14-May-2022 08:55 by Renetta Jones (SEC) Normal [facility] [place] Clinic Note - Heme Onc-Benig n Heme Follow-upon 05-13-2022 Clinic Note - Heme Onc-Benign Heme Follow-up Patient Visit Information: Visit Type: Benign Heme Follow-up History of Present Illness: ID Statement: LOLA HIGGINBOTHAM is a 31 year old Female Chief Complaint: iron deficiency anemia, follow up Interval History: Ms. Higginbotham is a 27yo female with complicated Crohn's disease since 2011 , was hospitalized at [facility] in 07/2015 (1st since Dx) with a disease flare while on azathioprine and steroids , CMV colitis, sepsis and pancytopenia . Developed DVT-PE during hospitalization. She has a history of Fe deficiency anemia treated with IV Fe, reacted to Feraheme. 07/23/16 Patient is here to see if she will need IV iron sucrose. She is fatigued but she is not sleeping well at night. She has had heavier than normal menses. She had a colonoscopy on 08/17/15 which showed a fistula. She had an EGD on 07/11/10 which was negative. She denies any hospitalizations since her last visit here in 03/2016. Denies any flare ups with her Crohn's disease. Patient is asking if she can come off of her coumadin since it has been a year she has been on it. Coumadin was discontinued several months ago. 04/02/17 pt is here to follow up after receiving 3 doses of IV iron sucrose on 02/16/17, 02/19/17 and 02/26/17. She still is fatigued. When she was here for one of her IV iron infusions she complained of shortness of breath which had been going on for months. Due to her hx of blood clots, a CT for PE was ordered and was negative for PE. It did show her thyroid was enlarged which was not a new finding. She does complain of epistaxis of the left nares for 1 year and difficulty swallowing. She was told she should have a thyroidectomy but she is not sure if she wants to do that. 09/28/2017 she saw ENT--she says he cleaned out her nostrils but there was nothing to cauterize; he documented seeing prominent vessels in her nasal passages and advised her to use saline nasal spray; she said she did use the nasal spray, however, continues to have intermittent nosebleeds -she had labs done by Dr. Orozco last month and said she had to go back to [facility] lab 3 times -she is on daily azathioprine 03/29/18 Mod fatigue and intermittent abd discomfort. Denies melena, hematochezia, heavy menses. Has daily nose bleeds, brief and clot quickly, after sneezing. Has seen ENT and saline sprays were recommended. 10/12/18 c/o high fatigue, daytime sleepiness, and RYDER. Denies pica symptoms, melena, hematochezia. She was on steroids a few months ago for flair of the Crohns. Menses mod flow. 12/07/18 Mod fatigue. Crohn's is stable. Menses are light. 06/02/2019 Has mod fatigue but no worse than her baseline. No recent flares of the Crohns disease. Denies melena, hematochezia. Menses are nml flow. 12/09/2019 No significant flare ups of her Crohn's disease. Denies melena, hematochezia. She is 5 months with due date of 04/08/2020. She is taking vitamins. Does c/o increased fatigue. No pica symptoms. 02/10/2020 Received Venofer 200mg x 5. Hasn't noticed much improvement in energy. 07/12/2020 This visit was conducted via telephone telecommunication due to COVID-19 which permits real time communications between patient and provider. -delivered a healthy baby boy by C section in March. she is not breast feeding. Has resumed Humira for the Crohns in May. Has occ bloody stool. Menses have resumed and are light to moderate flow. C/O mod fatigue and RYDER. no pagophagia. 01/11/2021 Received a course of Venofer in July, with improved energy, but does have chronic baseline fatigue. Crohns is well controlled, had a one week episode of symptom exacerbation. Menses are mod/light flow. 06/24/2021 Currently 26 weeks , with REFUGIO 09/29/21. Crohns disease has been stable, no diarrhea, melena, hematochezia. Has mod fatigue, attributed in part to . 12/23/2021 Here for interval followup for history of iron deficiency anemia -Patient delivered a healthy girl on 09/23/2021. She received Venofer infusion 200 mg x 5 times from 07/01/21 to 07/15/21. -Complains of fatigue today. Denies any chest pain. Admits RYDER. Denies any melena, hematochezia or bloody diarrhea. States that her Crohn's disease is well controlled. 05/13/2022 Here for interval followup -Complains of fatigue today. -Admits menorrhagia -Denies any hematochezia. -Denies any other complaints. 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 Normal [facility] [place] Clinic Note - Intakeon 05-13 Clinic Note - Intake Patient Visit Information: Visit TypeFollow Up Visit Source of Informationpatient Admission Information: Admission Since Last VisitNo Vital Signs: Temp (degrees C)36.7 degrees C TemperatureTEMPORAL Heart Rate (beats/min)72 beats per minute Respiration (breaths/min)16 breath per minute BP Systolic (mm Hg)136 mmHg BP Diastolic (mm Hg)90 mmHg BP Mean (mm Hg)105 mmHg Height in cm160.4 centimeter(s) Weight in kg85.4 kilogram(s) Weightstanding BMI (kg/m2)33.1 kg/M2 BSA (m2)1.95 M2 SpO2 (%)97 % SpO2 Patient Onroom air Pain Screening: Patient States Painno (0) Health Screening: LMP Commentscurrently Allergies: No Known Allergies: Active Outpatient Medication Profile: * Patient Currently Takes Medications as of 13-May-2022 14:03 documented in Structured Notes Humira Pen 40 mg/0.4 mL subcutaneous kit: Last Dose Taken: , 0 subcutaneous every week levothyroxine 125 mcg (0.125 mg) oral tablet: Last Dose Taken: , 1 tab(s) orally once a day Notification: NotificationsAnnual Screens Due Dates ___ Advanced Directives: Apr 29, 2023 Family Violence: Apr 29, 2023 Depression (Due every 6 months for ONC only; all others use Annual date): Oct 26, 2022 Substance Use - Alcohol: Apr 29, 2023 Substance Use - Drugs: Apr 29, 2023 Nutrition: Apr 29, 2023 Learning: Apr 29, 2023 Travel History: COVID-19 Screening Completedno exposure or symptoms Travel or ExposureNO travel to International locations in the past 30 days Falls: Have you fallen in the last 6 monthsno Do you have a fear of fallingno Do you feel you need assistanceno Is the patient using an assistive deviceno Electronic Signatures: Karlee Talamantes (PCNA) (Signed 13-May-2022 14:03) Authored: Patient Visit Information, Vital Signs, Health Screening, Allergies, Outpatient Medication Profile, Notification, Travel History, Falls Last Updated: 13-May-2022 14:03 by Karlee Talamantes (PCNA) Normal [facility] [place] Colonoscopyon 05-01-2022 Colonoscopy PATIENTNAME Patient Name: Lola Higginbotham EXAMDATE Procedure Date: 05/01/2022 7:15 AM PATIENTID PATIENTACCOUNTNUM PATIENTDOB Date of : 1990 ADMITTYPE Admit Type: Outpatient PATIENTROOM Site: [facility] Room 2 ETHNICITY Ethnicity: Not or RACE Race: Black or PROVDR Attending MD: Prem Browning MD, [id number] ENDOPROCEDURENAME Procedure: Colonoscopy INDICATION Indications: Follow-up of Crohn's disease of the small bowel and colon COMORBID Comorbidities: On Humira. PTPROFILE Patient Profile: This is a 31 year old female. Refer to note in patient chart for documentation of history and physical. PRIMARYPROVIDER Providers: Prem Browning MD (Doctor) Gastroenterology, Mulu Valenzuela RN (Nurse) , Emili Cruz, Thermocouple Tester EDREFPROVIDER Referring: Scarlett Martin NP CURRENT_MEDS Medicines: Fentanyl 75 micrograms IV, Midazolam 4 mg IV COMPLIC Complications: No immediate complications. ENDOPROCEDURETEXT Procedure: Pre-Anesthesia Assessment: - Prior to the procedure, a History and Physical was performed, and patient medications and allergies were reviewed. The patient is competent. The risks and benefits of the procedure and the sedation options and risks were discussed with the patient. All questions were answered and informed consent was obtained. Patient identification and proposed procedure were verified by the physician and the nurse in the pre-procedure area in the procedure room. Mental Status Examination: alert and oriented. Airway Examination: Mallampati Class III (part of the uvula and soft palate visualized). Respiratory Examination: clear to auscultation. CV Examination: normal. Prophylactic Antibiotics: The patient does not require prophylactic antibiotics. Prior Anticoagulants: The patient has taken no anticoagulant or antiplatelet agents. ASA Grade Assessment: II - A patient with mild systemic disease. After reviewing the risks and benefits, the patient was deemed in satisfactory condition to undergo the procedure. The anesthesia plan was to use moderate sedation / analgesia (conscious sedation). Immediately prior to administration of medications, the patient was re-assessed for adequacy to receive sedatives. The heart rate, respiratory rate, oxygen saturations, blood pressure, adequacy of pulmonary ventilation, and response to care were monitored throughout the procedure. The physical status of the patient was re-assessed after the procedure. After I obtained informed consent, the scope was passed under direct vision. Throughout the procedure, the patient's blood pressure, pulse, and oxygen saturations were monitored continuously. The pediatric colonoscope was introduced through the anus and advanced to the ileocolonic anastomosis. The colonoscopy was performed without difficulty. The patient tolerated the procedure well. The quality of the bowel preparation was good. The ileocecal valve, appendiceal orifice, and rectum were photographed. FINDING Findings: The perianal and digital rectal examinations were normal. There was evidence of a prior end-to-side ileo-colonic anastomosis in the ascending colon. This was patent and was characterized by healthy appearing mucosa. The anastomosis could not be traversed. The colon (entire examined portion) appeared normal. Biopsies were taken with a cold forceps for histology. The pathology specimen was placed into Bottle A-B The exam was otherwise without abnormality on direct and retroflexion views. SEDATION Moderate Sedation: The administration of moderate sedation was initiated at 07:44 AM. Moderate (conscious) sedation was personally administered by the endoscopist. The following parameters were monitored: oxygen saturation, heart rate, blood pressure, respiratory rate, EKG, adequacy of pulmonary ventilation, and response to care. Total physician intraservice time was 21 minutes. EBL Estimated Blood Loss: Estimated blood loss was minimal. IMPRESS Impression: - Patent end-to-side ileo-colonic anastomosis, characterized by healthy appearing mucosa. - Stricture at the anastomosis, it is chronic and no active inflammation was seen. Could not traverse with peds colonoscopy, - The entire examined colon is normal. Biopsied. - The examination was otherwise normal on direct and retroflexion views. ENDORECOMMENDATION Recommendation: - Patient has a contact number available for emergencies. The signs and symptoms of potential delayed complications were discussed with the patient. Return to normal activities tomorrow. Written discharge instructions were provided to the patient. - Resume previous diet. - Continue present medications. - Await pathology results. - Repeat colonoscopy in 3 - 5 years for surveillance. - If she has any concern for obstr (more content not included)... Normal [facility] [place] No Panel Informationon 05-01 [email or web address] [email or web address]} [facility] Work Phone: [facility] Work Phone: [facility] Surgical Pathology Depar tmenton 05-01-2022 [facility] Surgical Pathology Department Name LOLA HIGGINBOTHAM Pathologist: JARED CHI MD Date of Procedure: 05/01/2022 Date Received: 05/01/2022 Date Reported 05/09/2022 Submitting Physician: PREM BROWNING MD Location: [facility] Copy To/Referring/Attending: MATTHEW OROZCO D.O. Other External # FINAL DIAGNOSIS A. RIGHT COLON, BIOPSY: --COLONIC MUCOSA, NO SIGNIFICANT HISTOPATHOLOGICAL ABNORMALITIES. B. LEFT COLON, BIOPSY: --COLONIC MUCOSA, NO SIGNIFICANT HISTOPATHOLOGICAL ABNORMALITIES. Electronically Signed Out By JARED CHI MD/[facility] By the signature on this report, the individual or group listed as making the Final Interpretation/Diagnosis certifies that they have reviewed this case. Diagnostic interpretation performed at [place] [address] Clinical History: Hx Crohn's Specimens Submitted As: A: RIGHT COLON B: LEFT COLON Gross Description: A: Received in formalin, labeled with the patient's name and hospital number and A , are multiple fragments of wayne, soft tissue aggregating to 1.1 x 0.3 x 0.2 cm. The specimen is submitted in toto in one cassette. SBS B: Received in formalin, labeled with the patient's name and hospital number and B , are multiple fragments of wayne, soft tissue aggregating to 1.0 x 0.3 x 0.2 cm. The specimen is submitted in toto in one cassette. SBS sbs/05/06/2022 [facility] Department of Pathology [address] [place] [address] Normal [facility] [place] Comment on above: Performed By: #### [facility] ####[facility] Surgical Pathology [id number] [place] [address] CBC AND DIFFERENTIALon 04-24 % AUTOMATED IMMATURE GRAN 0.1 % Normal 0.0 - 0.9 [facility] Comment on above: Result Comment: Zulay ture Granulocyte Count (IG) includes promyelocytes, myelocytes and metamyelocytes but does not include bands. Percent differential counts (%) should be interpreted in the context of the absolute cell counts (cells/L). Performed By: #### C BCDF #### [address] [place] [address] Basophils (Bld) [#/Vol] 0.06 10*3/uL Normal 0.00 - 0.10 [facility] Comment on above: Performed By: #### C BCDF #### [address] [place] [address] Basophils/100 WBC (Bld) 0.6 % Normal 0.0 - 2.0 [facility] Comment on above: Performed By: #### C BCDF #### [address] [place] [address] Eosinophils (Bld) [#/Vol] 0.06 10*3/uL Normal 0.00 - 0.70 [facility] Comment on above: Performed By: #### C BCDF #### [address] [place] [address] Eosinophils/100 WBC (Bld) 0.6 % Normal 0.0 - 6.0 [facility] Comment on above: Performed By: #### C BCDF #### [address] [place] [address] Erythrocyte distribution width (RBC) [Ratio] 13.7 % Normal 11.5 - 14.5 [facility] Comment on above: Performed By: #### C BCDF #### [address] [place] [address] Hematocrit (Bld) [Volume fraction] 38.4 % Normal 36.0 - 46.0 [facility] Comment on above: Performed By: #### C BCDF #### [address] [place] [address] Hemoglobin (Bld) [Mass/Vol] 12.2 g/dL Normal 12.0 - 16.0 [facility] Comment on above: Performed By: #### C BCDF #### [address] [place] [address] Lymphocytes (Bld) [#/Vol] 2.83 10*3/uL Normal 1.20 - 4.80 [facility] Comment on above: Performed By: #### C BCDF #### [address] [place] [address] Lymphocytes/100 WBC (Bld) 27.1 % Normal 13.0 - 44.0 [facility] Comment on above: Performed By: #### C BCDF #### [address] [place] [address] MCHC (RBC) [Mass/Vol] 31.8 g/dL Low 32.0 - 36.0 [facility] Comment on above: Performed By: #### C BCDF #### [address] [place] [address] MCV (RBC) [Entitic vol] 87 fL Normal 80 - 100 [facility] Comment on above: Performed By: #### C BCDF #### [address] [place] [address] Monocytes (Bld) [#/Vol] 0.41 10*3/uL Normal 0.10 - 1.00 [facility] Comment on above: Performed By: #### C BCDF #### [address] [place] [address] Monocytes/100 WBC (Bld) 3.9 % Normal 2.0 - 10.0 [facility] Comment on above: Performed By: #### C BCDF #### [address] [place] [address] Neutrophils (Bld) [#/Vol] 7.06 10*3/uL Normal 1.20 - 7.70 [facility] Comment on above: Performed By: #### C BCDF #### [address] [place] [address] Neutrophils/100 WBC (Bld) 67.7 % Normal 40.0 - 80.0 [facility] Comment on above: Performed By: #### C BCDF #### [address] [place] [address] Platelets (Bld) [#/Vol] 271 10*3/uL Normal 150 - 450 [facility] Comment on above: Performed By: #### C BCDF #### [address] [place] [address] RBC 4.41 x10E12/L Normal 4.00 - 5.20 [facility] Comment on above: Performed By: #### C BCDF #### [address] [place] [address] WBC (Bld) [#/Vol] 10.4 10*3/uL Normal 4.4 - 11.3 [facility] Comment on above: Performed By: #### C BCDF #### [address] [place] [address] Complete Blood Count + Diffe rentialon 04-24-2022 Basophils/100 WBC (Bld) 0.6 % 0.0 - 2.0 [facility] Work Phone: Erythrocyte distribution width (RBC) [Ratio] 13.7 % See Below [facility] Work Phone: Comment on above: Reference Range: 11. 5 - 14.5 Hematocrit (Bld) [Volume fraction] 38.4 % See Below [facility] Work Phone: Comment on above: Reference Range: 36. 0 - 46.0 Hemoglobin (Bld) [Mass/Vol] 12.2 g/dL See Below [facility] Work Phone: Comment on above: Reference Range: 12. 0 - 16.0 Lymphocytes/100 WBC (Bld) 27.1 % See Below [facility] Work Phone: Comment on above: Reference Range: 13. 0 - 44.0 MCHC (RBC) [Mass/Vol] 31.8 g/dL below low threshold See Below [facility] Work Phone: Comment on above: Reference Range: 32. 0 - 36.0 MCV (RBC) [Entitic vol] 87 fL 80 - 100 [facility] Work Phone: Monocytes/100 WBC (Bld) 3.9 % 2.0 - 10.0 [facility] Work Phone: Neutrophils/100 WBC (Bld) 67.7 % See Below [facility] Work Phone: Comment on above: Reference Range: 40. 0 - 80.0 Platelets (Bld) [#/Vol] 271 10*3/uL 150 - 450 [facility] Work Phone: RBC (Bld) [#/Vol] 4.41 {x10E12/L} See Below [facility] Work Phone: Comment on above: Reference Range: 4.0 0 - 5.20 WBC (Bld) [#/Vol] 10.4 10*3/uL 4.4 - 11.3 [facility] Work Phone: Complete Blood Count + Differential 0.06 {x10E9/L} See Below [facility] Work Phone: Comment on above: Reference Range: 0.0 0 - 0.10 Reference Range: 0.0 0 - 0.70 Complete Blood Count + Differential 0.41 {x10E9/L} See Below [facility] Work Phone: Comment on above: Reference Range: 0.1 0 - 1.00 Complete Blood Count + Differential 2.83 {x10E9/L} See Below [facility] Work Phone: Comment on above: Reference Range: 1.2 0 - 4.80 Complete Blood Count + Differential 7.06 {x10E9/L} See Below [facility] Work Phone: Comment on above: Reference Range: 1.2 0 - 7.70 Complete Blood Count + Differential 0.6 % 0.0 - 6.0 [facility] Work Phone: Complete Blood Count + Differential 0.1 % 0.0 - 0.9 [facility] Work Phone: Comment on above: Immature Granulocyte Count (IG) includes promyelocytes, myelocytes and metamyelocytes but does not include bands. Percent differential counts (%) should be interpreted in the context of the absolute cell counts (cells/L). FERRITINon 04-24-2022 FERRITIN 39 ug/L Normal 8 - 150 [facility] Comment on above: Performed By: #### F ERRI #### [address] [address] Ferritin, Serumon 04-24-2022 Ferritin [Mass/Vol] 39 ug/L 8 - 150 [facility] Work Phone: IRON + TIBCon 04-24-2022 % SATURATION 27 % Normal 25 - 45 [facility] Comment on above: Performed By: #### I RONT #### [address] [address] Iron [Mass/Vol] 87 ug/dL Normal 35 - 150 [facility] Comment on above: Performed By: #### I RONT #### [address] [place] [address] TIBC 321 ug/dL Normal 240 - 445 [facility] Comment on above: Performed By: #### I RONT #### [address] [address] Laboratory - Chemistry and C hemistry - challengeon 04-24-2022 Iron [Mass/Vol] 87 ug/dL 35 - 150 [facility] Work Phone: Iron binding capacity [Mass/Vol] 321 ug/dL 240 - 445 [facility] Work Phone: No Panel Informationon 04-24 27 % 25 - 45 [facility] Work Phone: Office Visiton 01-21-2022 Follow-up visit Diagnoses/Problems Chronic pansinusitis (473.8) (J32.4) Nasal vestibulitis (478.19) (J34.89) Provider Impressions Ms. LOLA HIGGINBOTHAM is a pleasant 31 year woman Debridement performed, tolerated well. Continue nasal hygiene and moisture. Patient will return in 4 months or sooner as needed This electronic medical record note was created with the use of voice recognition software. Despite proofreading, typographical or grammatical errors may be present that could affect the meaning of content. Please call with any questions. ?I, Courtney Davison, am scribing for, and in the presence of, Dr. Bonilla on 01/21/2022 at 10:15 AM. I, Abdullahi Bonilla, personally attest to the documentation as scribed in my presence. I have reviewed the chart and agree that the record accurately reflects my performance of the history, exam, assessment, plan, and relevant diagnoses.? Chief Complaint F/u for nasal congestion History of Present IllnessPatient is a 31 year old female presenting today for a follow-up of nasal congestion. The patient has been compliant in her ointment usage, and notes no new or worsening symptoms. She no longer works for [employer] but is still at her original job that she has had for the past three years. Review of Systems ENT review of systems is negative except as noted per HPI. Active Problems Adrenal insufficiency (255.41) (E27.40) Anemia (285.9) (D64.9) Added by Problem List Migration; 2013-01-07; Moved to [facility] Apr 09 2013 4:10PM ASCUS of cervix with negative high risk HPV (795.01) (R87.610) Autoimmune disease (279.49) (M35.9) BMI 32.0-32.9,adult (V85.32) (Z68.32) Chronic ethmoidal sinusitis (473.2) (J32.2) Chronic otitis externa (380.23) (H60.60) Chronic pansinusitis (473.8) (J32.4) Crohn's disease of small and large intestines with complication (555.2) (K50.819) Effective bowel preparation for surgery Folliculitis (704.8) (L73.9) Gallbladder polyp (575.6) (K82.4) Hearing loss of both ears due to cerumen impaction (389.8,380.4) (H61.23) Hemorrhoid (455.6) (K64.9) Hypothyroidism, 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) Impacted cerumen of both ears (380.4) (H61.23) Nasal crusting (478.19) (J34.89) Nasal obstruction (478.19) (J34.89) Nasal vestibulitis (478.19) (J34.89) Obesity (BMI 30.0-34.9) (278.00) (E66.9) 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) Syncope (780.2) (R55) Uveitis (364.3) (H20.9) Vitamin D deficiency (268.9) (E55.9) Well adult Well woman exam (no gynecological exam) (V70.0) (Z00.00) Past Medical History History of Acute Crohn's disease (555.9) (K50.90) History of Adrenal insufficiency (255.41) (E27.40) History of Adrenal insufficiency (255.41) (E27.40) History of Allergic conjunctivitis of both eyes (372.14) (H10.13) Resolved Date: 25 Feb 2019 History of ASCUS of cervix with negative high risk HPV (795.01) (R87.610) History of ASCUS of cervix with negative high risk HPV (795.01) (R87.610) History of Chronic anterior ethmoidal sinusitis (473.2) (J32.2) Resolved Date: 25 Feb 2019 History of Chronic iritis, 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) History of Chronic steroid use (V58.65) 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,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,B25.9) Resolved Date: 26 Nov 2016 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) Resolved Date: 26 Nov 2016 History of Epistaxis (784.7) (R04.0) History of anemia (V12.3) (Z86.2) History of chronic sinusitis (V12.69) (Z87.09) Resolved Date: 25 Feb 2019 History of chronic sinusitis (V12.69) (Z87.09) Resolved Date: 25 Feb 2019 History of deep venous thrombosis (V12.51) (Z86.718) Resolved Date: 14 Oct 2016 History of deviated nasal septum (V12.69) (Z87.09) Resolved Date: 25 Feb 2019 History of goiter (V12.29) (Z86.39) Resolved Date: 25 Feb 2019 History of impacted cerumen (V12.49) (Z86.69) Resolved Date: 14 Oct 2016 History of iron deficiency anemia (V12.3) (Z86.2) History of pulmonary embolism (V12.55) (Z86.711) Resolved Date: 14 Oct 2016 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) Resolved Date: 14 Jan 2016 IN 2012 was on Methimazole History of Hyperthyroidism (242.90) (E05.90) was on Methimazole History of Multinodular goiter (241.1) (E04.2) Resolved Date: 27 Aug 2018 History of Nasal turbinate hypertrophy (478.0) (J34.3) Resolved Date: 25 Feb 2019 History of On prednisone therapy (V58.65) (Z79.52) History of On prednisone therapy (V58.65) (Z79.52) Resolved Date: 27 Aug 2018 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 (more content not included)... Normal [employer] Tobacco Screening.on 022 Adult depression screening assessment No [facility] Work Phone: Fall risk assessment a) No falls within the last year [employer] Work Phone: Tobacco use status CPHS b) No [employer] Work Phone: Clinic Note - Heme Onc Sched ulingon 12-25-2021 Clinic Note - Heme Onc Scheduling Retrieve Patient Instructions: Patient Instructions: Patient Instructions: RetrievePatient Instructions Instructions Typepatient education End of Visit Documentation: Clinic Location/Phone Number: Clinic Location/ End Of Visit MU Report Item: Visit Summary given or mailed to patientyes Electronic Signatures: Scarlett Navarro (Rev Cycl Spec) (Signed 25-Dec-2021 11:12) Authored: Retrieve Patient Instructions, End of Visit Documentation Last Updated: 25-Dec-2021 11:12 by Scarlett Navarro (Rev Cycl Spec) Normal [facility] [place] Ophthalmic Eye [place] 2021 Ophthalmic Eye Exam DOCUMENT REVIEWED BY : Tom Vasquez DOCUMENT SIGNED ELECTRONICALLY BY Tom Vasquez ON 12/25/2021 12:30:45 PM [facility] [address], [address] [place], [address] [phone] THIS DOCUMENT WAS CREATED ON: 12/25/2021 12:03:56 PM BY: Tom Otoole performed OPAPE-Mrqi-cd Exam Date: Saturday, December 25, 2021 PATIENT NAME: LOLA HIGGINBOTHAM DATE: 1990 AGE: 31 GENDER: Female RACE: History Chief Complaint/Reason For Visit: Problem-Follow up for chronic Iritis / Posterior uveitis. Has a FB sensation to the OD on and off. She wernt back on Humira about 2-3 weeks ago. No light sensativity/ pain/ or irritation. vision is stable, Context/Onset-gradual, Location-OD>OS, Duration-several weeks, HISTORY OF PRESENT ILLNESS: PROBLEM: Follow up for chronic Iritis / Posterior uveitis. Has a FB sensation to the OD on and off. She wernt back on u Humira about 2-3 weeks ago No light sensativity/ pain/ or irritation. vision is stable CONTEXT/ONSET: gradual LOCATION: OD>OS DURATION: several weeks HPI was performed by Dr. Tom Vasquez and scribed by Bradford Vasquez PAST MEDICAL HISTORY: OCULAR: Chronic Iritis OU Papilledema Posterior Uveitis Ptosis of RUL PROCEDURES : no eye surgery OCULAR SIGNIFICANT: Crohns disease ILLNESSES: History of Hyperthyroidism; History of iron deficiency anemia; History of Papilledema associated with retinal disorder; History of Chronic steroid use; History of Ptosis of right eyelid; History of Ptosis of right eyelid; History of anemia; History of Thyroid trouble; History of Acute Crohn`s disease; History of Posterior uveitis, both eyes; History of Chronic iritis, bilateral; History of Optic nerve edema; History of Unspecified chorioretinal inflammation, bilateral; 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; History of Periumbilical abdominal pain; History of ASCUS of cervix with negative high risk HPV; History of Adrenal insufficiency; History of Epistaxis; History of Adrenal insufficiency; History of ASCUS of cervix with negative high risk HPV; History of On prednisone therapy; Crohn`s disease of colon; History of chronic sinusitis; History of deviated nasal septum; History of Nasal turbinate hypertrophy; History of Allergic conjunctivitis of both eyes; History of chronic sinusitis; History of goiter; History of Chronic anterior ethmoidal sinusitis; History of Hearing loss of both ears due to cerumen impaction; History of Multinodular goiter; History of Impacted cerumen of both ears; History of On prednisone therapy; History of CMV colitis; History of Cytomegalovirus (CMV) viremia; History of toxic multinodular goiter; History of impacted cerumen; History of deep venous thrombosis; History of pulmonary embolism; 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; SURGERIES: History of Ileocecal resection; History Of Prior Surgery; HEAD/OCULAR TRAUMA: neg SOCIAL HISTORY: ALCOHOL: Occasional alcohol use; SMOKING: Never smoker; STREET DRUGS: No drug use; DIET: Caffeine Use; NOTE: Single; History of second hand smoke exposure (V87.39 Z77.22); FAMILY HISTORY: Family History Last Reviewed on:12/25/2021 FATHER: Family history of Thrombosis, portal vein, Family history of type 2 diabetes mellitus, Paternal history of Diabetes Mellitus CURRENT MEDICATIONS: Humira Pen 40 MG/0.4ML Subcutaneous Pen-injector Kit - #4 Kit, Pen-injector Kit, Inject 40 mg (1 pen) under the skin Once a Week as directed., NO REFILLS, Evaluate: 14-Oct-2021 Levothyroxine Sodium 125 MCG Oral Tablet - #90 Tablet, TAKE 1 TABLET DAILY DIRECTED., 3 refills, Evaluate: 25-Oct-2022 Vitamin D 50 MCG (1999 [place]) Oral Capsule - #90 Capsule, Take 1 tablet daily, 3 refills, Evaluate ALLERGIES: Bactrim TABS:[Rash, Swelling], No Known Drug Allergies REVIEW OF SYSTEMS: GI:GI crohns flare october 2019 All other Review Of Systems negative Exam ORIENTATION, MOOD AND AFFECT: Alert AND oriented x3 RIGHT EYE LEFT EYE UNCORRECTED VA N/A N/A CORRECTED VA 20/25 20/20-2 PRESSURE METHOD: Tonopen Tonopen PRESSURES: 15 15 DATE-TIME: 12/25/2021 11:32:51 AM 12/25/2021 11:32:51 AM CUE SELECTOR: ariana [email or web address] CONFRONTATION VF Full to count fingers Full to count fingers EXTERNAL EYE EXAM: LID: Good Position Good Position PUPIL: PERRL/no APD PERRL/no APD ADNEXA: Normal Normal MUSCLE BALANCE: Ortho OCULAR MOTILITY: Full ANTERIOR SEGMENT EXAM: TEARFILM: Good Good CONJUNCTIVA: White and quiet White and quiet CORNEA: superior pannus with minimal Clear thinning, old ANTERIOR CHAMBER: Deep and quiet Deep and quiet CELL/FLARE: 0/0 0/0 IRIS: Round and reactive Round and reactive LENS: Clear Clear ANTERIOR VITREOUS: Clear Clear FUNDUS EXAM: CUP TO DISC: .2 tilted drusen disc .2 tilted OPTIC DISC: [place] and sharp [place] and sharp VITREOUS: Clear Clear MACULA: Normal reflex Normal reflex VESSELS: Normal Normal PERIPHERY: myopic (more content not included)... Normal [facility] Clinic Note - Heme Onc-Benaaron n Heme Follow-upon 12-23-2021 Clinic Note - Heme Onc-Benign Heme Follow-up Patient Visit Information: Visit Type: Benign Heme Follow-up History of Present Illness: ID Statement: LOLA HIGGINBOTHAM is a 31 year old Female Chief Complaint: iron deficiency anemia, follow up Interval History: Ms. Higginbotham is a 27yo female with complicated Crohn's disease since 2011 , was hospitalized at [facility] in 07/2015 (1st since Dx) with a disease flare while on azathioprine and steroids , CMV colitis, sepsis and pancytopenia . Developed DVT-PE during hospitalization. She has a history of Fe deficiency anemia treated with IV Fe, reacted to Feraheme. 07/23/16 Patient is here to see if she will need IV iron sucrose. She is fatigued but she is not sleeping well at night. She has had heavier than normal menses. She had a colonoscopy on 08/17/15 which showed a fistula. She had an EGD on 07/11/10 which was negative. She denies any hospitalizations since her last visit here in 03/2016. Denies any flare ups with her Crohn's disease. Patient is asking if she can come off of her coumadin since it has been a year she has been on it. Coumadin was discontinued several months ago. 04/02/17 pt is here to follow up after receiving 3 doses of IV iron sucrose on 02/16/17, 02/19/17 and 02/26/17. She still is fatigued. When she was here for one of her IV iron infusions she complained of shortness of breath which had been going on for months. Due to her hx of blood clots, a CT for PE was ordered and was negative for PE. It did show her thyroid was enlarged which was not a new finding. She does complain of epistaxis of the left nares for 1 year and difficulty swallowing. She was told she should have a thyroidectomy but she is not sure if she wants to do that. 09/28/2017 she saw ENT--she says he cleaned out her nostrils but there was nothing to cauterize; he documented seeing prominent vessels in her nasal passages and advised her to use saline nasal spray; she said she did use the nasal spray, however, continues to have intermittent nosebleeds -she had labs done by Dr. Orozco last month and said she had to go back to [facility] lab 3 times -she is on daily azathioprine 03/29/18 Mod fatigue and intermittent abd discomfort. Denies melena, hematochezia, heavy menses. Has daily nose bleeds, brief and clot quickly, after sneezing. Has seen ENT and saline sprays were recommended. 10/12/18 c/o high fatigue, daytime sleepiness, and RYDER. Denies pica symptoms, melena, hematochezia. She was on steroids a few months ago for flair of the Crohns. Menses mod flow. 12/07/18 Mod fatigue. Crohn's is stable. Menses are light. 06/02/2019 Has mod fatigue but no worse than her baseline. No recent flares of the Crohns disease. Denies melena, hematochezia. Menses are nml flow. 12/09/2019 No significant flare ups of her Crohn's disease. Denies melena, hematochezia. She is 5 months with due date of 04/08/2020. She is taking vitamins. Does c/o increased fatigue. No pica symptoms. 02/10/2020 Received Venofer 200mg x 5. Hasn't noticed much improvement in energy. 07/12/2020 This visit was conducted via telephone telecommunication due to COVID-19 which permits real time communications between patient and provider. -delivered a healthy baby boy by C section in March. she is not breast feeding. Has resumed Humira for the Crohns in May. Has occ bloody stool. Menses have resumed and are light to moderate flow. C/O mod fatigue and RYDER. no pagophagia. 01/11/2021 Received a course of Venofer in July, with improved energy, but does have chronic baseline fatigue. Crohns is well controlled, had a one week episode of symptom exacerbation. Menses are mod/light flow. 06/24/2021 Currently 26 weeks , with REFUGIO 09/29/21. Crohns disease has been stable, no diarrhea, melena, hematochezia. Has mod fatigue, attributed in part to . 12/23/2021 Here for interval followup for history of iron deficiency anemia -Patient delivered a healthy girl on 09/23/2021. She received Venofer infusion 200 mg x 5 times from 07/01/21 to 07/15/21. -Complains of fatigue today. Denies any chest pain. Admits RYDER. Denies any melena, hematochezia or bloody diarrhea. States that her Crohn's disease is well controlled. Past Medical History History of Acute Crohn's disease (555.9) (K50.90) History of Chronic iritis, 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) History of Chronic steroid use (V58.65) 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,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,B25.9) 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) History of anemia (V12.3) (Z86.2) History of deep venous thrombosis (V12.51) (Z86.718) History of impacted cerumen (V12.49) (Z86.69) History of iron deficiency anemia (V12.3) (Z86.2) History of pulmonary embolism (V12.55) (Z86.711) 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) IN 2012 was on Methimazole History of Hyperthyroidism (242.90) (E05.90) was on Methimazole History of Optic disc edema associated w (more content not included)... Normal [facility] [place] Clinic Note - Intakeon 12-23 Clinic Note - Intake Patient Visit Information: Visit TypeFollow Up Visit Source of Informationpatient Admission Information: Admission Since Last VisitYes Admission [id number] Admission Reason/DetailsGave Vital Signs: Temp (degrees C)36.3 degrees C Temperatureskin Heart Rate (beats/min)65 beats per minute Respiration (breaths/min)16 breath per minute BP Systolic (mm Hg)130 mmHg BP Diastolic (mm Hg)90 mmHg BP Mean (mm Hg)103 mmHg Height in cm160.4 centimeter(s) Heightstanding Weight in kg82.3 kilogram(s) Weightstanding BMI (kg/m2)31.9 kg/M2 BSA (m2)1.91 M2 Last 3 Weights & HeightsDate: Weight/Scale Type:Height: 15-Jul-2021 09:5587.9 kg / standing .4 cm 11-Jul-2021 14:0886.6 kg / standing dmpvo636.4 cm 08-Jul-2021 10:2786.6 kg / standing .4 cm SpO2 (%)97 % SpO2 Patient Onroom air Pain Screening: Patient States Painno (0) Pain Scale UsedNumeric (0-10) Health Screening: LMP Commentscurrently Allergies: No Known Allergies: Active Outpatient Medication Profile: * Patient Currently Takes Medications as of 15-Jul-2021 09:55 documented in Structured Notes cholecalciferol 5000 intl units oral capsule: 1 cap(s) oral once a day Humira Pen 40 mg/0.4 mL subcutaneous kit: 0 subcutaneous every week Levoxyl 175 mcg (0.175 mg) oral tablet: 1 tab(s) orally once a day Lovenox: Notification: NotificationsAnnual Screens Due Dates ___ Advanced Directives: Jan 11, 2022 Family Violence: Jan 11, 2022 Depression (Due every 6 months for ONC only; all others use Annual date): Jul 10, 2021 Substance Use - Alcohol: Jan 11, 2022 Substance Use - Drugs: Jan 11, 2022 Nutrition: Jan 11, 2022 Learning: Jan 11, 2022 Travel History: COVID-19 Screening Completedno exposure or symptoms Travel or ExposureNO travel to International locations in the past 30 days Falls: Have you fallen in the last 6 monthsno Do you have a fear of fallingno Do you feel you need assistanceno Is the patient using an assistive deviceno Not a falls riskimplement environmental risk factors interventions Spiritual/Procedural: Spiritual/cultural/religiou s practices important for us to knowno Oncology Nutrition: I am now taking(1) normal food but less than normal amount During the past 2 weeks, weight has(0) not changed Intake past month, compared to normal intake(0) unchanged Problems keeping me from eating past 2 weeks (0) no problem eating In the past month, my activity/functioning rating is(0) normal with no limitations Score 6 or > notify clinician1 Electronic Signatures: Nikky Blackman (VIDHI) (Signed 23-Dec-2021 09:46) Authored: Patient Visit Information, Vital Signs, Health Screening, Allergies, Outpatient Medication Profile, Notification, Travel History, Falls, Spiritual/Procedural, Oncology Nutrition Last Updated: 23-Dec-2021 09:46 by Nikky Blackman (VIDHI) Normal [facility] [place] Complete Blood Count + Diffe april 12-23-2021 Basophils/100 WBC (Bld) 0.5 % 0.0 - 2.0 [facility] Work Phone: Erythrocyte distribution width (RBC) [Ratio] 14.1 % See Below [facility] Work Phone: Comment on above: Reference Range: 11. 5 - 14.5 Hematocrit (Bld) [Volume fraction] 36.9 % See Below [facility] Work Phone: Comment on above: Reference Range: 36. 0 - 46.0 Hemoglobin (Bld) [Mass/Vol] 12.0 g/dL See Below [facility] Work Phone: Comment on above: Reference Range: 12. 0 - 16.0 Lymphocytes/100 WBC (Bld) 33.0 % See Below [facility] Work Phone: Comment on above: Reference Range: 13. 0 - 44.0 MCHC (RBC) [Mass/Vol] 32.5 g/dL See Below [facility] Work Phone: Comment on above: Reference Range: 32. 0 - 36.0 MCV (RBC) [Entitic vol] 85 fL 80 - 100 [employer] [facility] Work Phone: Monocytes/100 WBC (Bld) 4.6 % 2.0 - 10.0 [facility] Work Phone: Neutrophils/100 WBC (Bld) 60.3 % See Below [facility] Work Phone: Comment on above: Reference Range: 40. 0 - 80.0 Platelets (Bld) [#/Vol] 275 10*3/uL 150 - 450 [facility] Work Phone: RBC (Bld) [#/Vol] 4.36 {x10E12/L} See Below [facility] Work Phone: Comment on above: Reference Range: 4.0 0 - 5.20 WBC (Bld) [#/Vol] 9.5 10*3/uL 4.4 - 11.3 [facility] Work Phone: Complete Blood Count + Differential 0.05 {x10E9/L} See Below [facility] Work Phone: Comment on above: Reference Range: 0.0 0 - 0.10 Complete Blood Count + Differential 0.13 {x10E9/L} See Below [facility] Work Phone: Comment on above: Reference Range: 0.0 0 - 0.70 Complete Blood Count + Differential 0.44 {x10E9/L} See Below [facility] Work Phone: Comment on above: Reference Range: 0.1 0 - 1.00 Complete Blood Count + Differential 3.14 {x10E9/L} See Below [facility] Work Phone: Comment on above: Reference Range: 1.2 0 - 4.80 Complete Blood Count + Differential 5.73 {x10E9/L} See Below [facility] Work Phone: Comment on above: Reference Range: 1.2 0 - 7.70 Complete Blood Count + Differential 1.4 % 0.0 - 6.0 [facility] Work Phone: Complete Blood Count + Differential 0.2 % 0.0 - 0.9 [facility] Work Phone: Comment on above: Immature Granulocyte Count (IG) includes promyelocytes, myelocytes and metamyelocytes but does not include bands. Percent differential counts (%) should be interpreted in the context of the absolute cell counts (cells/L). Ferritin, Serumon 12-23-2021 Ferritin [Mass/Vol] 106 ug/L 8 - 150 -[facility] Work Phone: Laboratory - Chemistry and C hemistry - challengeon 12-23-2021 Calprotectin (Stl) [Mass/Mass] 40 ug/g <=49 [facility] Work Phone: Comment on above: REFERENCE INTERVAL: Calprotectin, Fecal by Immunoassay Less than 50 ug/g.........Normal 50-120 ug/g...............Borderline elevated, test should be re-evaluated in 4-6 weeks. 121 ug/g or greater.......ElevatedPerformed By: Alexandre de Paris[address] [place] [address] [id number] Director: Cherelle Trevizo MD, PhD Iron [Mass/Vol] 57 ug/dL 35 - 150 [facility] Work Phone: Iron binding capacity [Mass/Vol] 254 ug/dL 240 - 445 [facility] Work Phone: No Panel Informationon 12-23 22 % below low threshold 25 - 45 [facility] Work Phone: C Reactive Protein, Serumon 11-26-2021 CRP [Mass/Vol] 0.70 mg/dL [facility] Work Phone: Comment on above: REF VALUE< 1.00 Folate, Serumon 11-26-2021 Folate [Mass/Vol] 7.7 ng/mL >5.0 [facility] Work Phone: Comment on above: Low <3.4Borderline 3 .4-5.0Normal >5.0. Patients receiving more than 5 mg/day of biotin may have interference in test results. A sample should be taken no sooner than eight hours after previous dose. Contact the testing laboratory for additional information. Laboratory - Chemistry and C hemistry - challengeon 11-26-2021 Albumin BCP dye [Mass/Vol] 4.0 g/dL 3.4 - 5.0 [facility] Work Phone: ALP [Catalytic activity/Vol] 54 U/L 33 - 110 [facility] Work Phone: ALT With P-5'-P [Catalytic activity/Vol] 14 U/L 7 - 45 [facility] Work Phone: Comment on above: Patients treated wit h Sulfasalazine may generate falsely decreased results for ALT. Anion gap [Moles/Vol] 11 mmol/L 10 - 20 [facility] Work Phone: AST With P-5'-P [Catalytic activity/Vol] 20 U/L 9 - 39 [facility] Work Phone: Bilirubin [Mass/Vol] 0.4 mg/dL 0.0 - 1.2 [facility] Work Phone: Calcium [Mass/Vol] 9.4 mg/dL 8.6 - 10.3 [facility] Work Phone: Chloride [Moles/Vol] 103 mmol/L 98 - 107 [facility] Work Phone: CO2 [Moles/Vol] 26 mmol/L 21 - 32 [facility] Work Phone: Creatinine [Mass/Vol] 0.80 mg/dL See Below [facility] Work Phone: Comment on above: Reference Range: 0.5 0 - 1.05 Glucose [Mass/Vol] 81 mg/dL 74 - 99 [facility] Work Phone: Potassium [Moles/Vol] 3.9 mmol/L 3.5 - 5.3 [facility] Work Phone: Protein [Mass/Vol] 8.0 g/dL 6.4 - 8.2 [facility] Work Phone: Sodium [Moles/Vol] 136 mmol/L 136 - 145 [facility] Work Phone: Urea nitrogen [Mass/Vol] 9 mg/dL 6 - 23 [facility] Work Phone: Laboratory - Hematology and Cell countson 11-26-2021 Erythrocyte distribution width (RBC) [Ratio] 13.3 % See Below [facility] Work Phone: Comment on above: Reference Range: 11. 5 - 14.5 Hematocrit (Bld) [Volume fraction] 41.7 % See Below [facility] Work Phone: Comment on above: Reference Range: 36. 0 - 46.0 Hemoglobin (Bld) [Mass/Vol] 12.8 g/dL See Below [facility] Work Phone: Comment on above: Reference Range: 12. 0 - 16.0 MCHC (RBC) [Mass/Vol] 30.7 g/dL below low threshold See Below [facility] Work Phone: Comment on above: Reference Range: 32. 0 - 36.0 MCV (RBC) [Entitic vol] 85 fL 80 - 100 [facility] Work Phone: Platelets (Bld) [#/Vol] 306 10*3/uL 150 - 450 [facility] Work Phone: RBC (Bld) [#/Vol] 4.88 {x10E12/L} See Below [facility] Work Phone: Comment on above: Reference Range: 4.0 0 - 5.20 WBC (Bld) [#/Vol] 8.8 10*3/uL 4.4 - 11.3 -[facility] Work Phone: No Panel Informationon 11-26 >90 >90 [facility] Work Phone: Comment on above: CALCULATIONS OF MITCH MATED GFR ARE PERFORMED USING THE 2020 CKD-EPI STUDY REFIT EQUATION WITHOUT THE RACE VARIABLE FOR THE IDMS-TRACEABLE CREATININE METHODS.https://jasn.asnjournals.org/content/early//ASN. 4712874389 Sedimentation Rate, Erythroc yteon 11-26-2021 ESR (Bld) [Velocity] 48 mm/h above high threshold 0 - 20 [facility] Work Phone: Comment on above: Please note new refe rence ranges as of 09/23/2021.Ran on alternate instrumentReference Ranges: Males: 0-15 Females: 0-20 Children under 18: 0-10 T4 - Free Thyroxine, Serumon 11-26-2021 Free T4 [Mass/Vol] 1.18 ng/dL above high threshold See Below [facility] [place] [address] Work Phone: Comment on above: Reference Range: 0.6 1 - 1.12 Thyroxine Free testing is performed using different testing methodology at [facility] than at other [facility]. Direct result comparisons should only be made within the same method.. Biotin can cause falsely elevated free T4 results. Patients taking a Biotin dose of up to 10 mg/day should refrain from taking Biotin for 24 hours before sample collection. Patient taking a Biotin dose of >10 mg/day should consult with their physician or the laboratory before the blood draw. TISSUE TRANSGLUTAMINIASE AB, IGA WITH ASSESSMENT OF TOTAL IgAon 11-26-2021 tTG IgA IA Qn (S) <1 0 - 14 [employer] [facility] Work Phone: Comment on above: Celiac disease is un likely. False negative Tissue Transglutaminase Antibody, IgA results can occur in approximately 10% of patients with celiac disease, patients already adhering to a gluten-free diet, or patients with IgA deficiency. TSH - Thyroid Stimulating Ho rmone, Serumon 11-26-2021 TSH Qn 0.02 m[IU]/L below low threshold See Below [facility] [employer] Work Phone: Comment on above: Reference Range: 0.4 4 - 3.98 TSH testing is performed using different testing methodology at [facility] than at other physicians & surgeons hospital. Direct result comparisons should only be made within the same method. Tobacco Screening.on Fall risk assessment a) No falls within the last year [facility] Work Phone: Tobacco use status CPHS b) No [facility] Work Phone: Vitamin B12, Serumon Cobalamin (Vitamin B12) [Mass/Vol] 349 pg/mL 211 - 911 [facility] Work Phone: T4 - Free Thyroxine, Serumon 10-26-2021 Free T4 [Mass/Vol] 1.94 ng/dL above high threshold See Below [facility] [employer] Work Phone: Comment on above: Reference Range: 0.6 1 - 1.12 Thyroxine Free testing is performed using different testing methodology at [facility] than at other physicians [facility] surgeons hospital. Direct result comparisons should only be made within the same method.. Biotin can cause falsely elevated free T4 results. Patients taking a Biotin dose of up to 10 mg/day should refrain from taking Biotin for 24 hours before sample collection. Patient taking a Biotin dose of >10 mg/day should consult with their physician or the laboratory before the blood draw. TSH - Thyroid Stimulating Ho rmone, Serumon 10-26-2021 TSH Qn m[IU]/L below low threshold See Below [facility] Luis M [address] Work Phone: Comment on above: Reference Range: 0.4 4 - 3.98 TSH testing is performed using different testing methodology at [facility] than at other physicians [facility] surgeons hospital. Direct result comparisons should only be made within the same method. Tobacco Screening.on 022 Fall risk assessment a) No falls within the last year [facility] [employer] [address] Work Phone: Tobacco use status CPHS b) No [facility] ke [facility] [address] Work Phone: MAGNESIUM DRIP MONITORon Magnesium [Mass/Vol] 6.5 mg/dL Normal 3.6-6.[address] [facility] Comment on above: Performed By: #### A ST, ALT, LDH, URIC #### [facility] [address] [place] [address] Dr. Giuseppe Salmeron CBC AUTO DIFFon 10-02-2021 BASO # 0.1 103/ul Normal 0.0-0.[address] [facility] Comment on above: Performed By: #### A ST, ALT, LDH, URIC #### [facility] [address] [address] [address] Giuseppe Salmeron Basophils/100 WBC (Bld) 0.7 % Normal 0.2-2.[address] [facility] Comment on above: Performed By: #### A ST, ALT, LDH, URIC #### [facility] [address] [address] [address] Giuseppe Salmeron EO # 0.1 103/ul Normal 0.0-0.[address] [facility] Comment on above: Performed By: #### A ST, ALT, LDH, URIC #### [facility] [address] [place] [address] Dr. Giuseppe Salmeron Eosinophils/100 WBC (Bld) 0.7 % Critically low 0.9-7.[address] [facility] Comment on above: Performed By: #### A ST, ALT, LDH, URIC #### [facility] [address] [place] [address] Dr. Giuseppe Salmeron Erythrocyte distribution width (RBC) [Ratio] 13.8 % Normal 11.0-15.0 [facility] Comment on above: Performed By: #### A ST, ALT, LDH, URIC #### [facility] [address] [place] [address] Dr. Giuseppe Salmeron Hematocrit (Bld) [Volume fraction] 38.8 % Normal 36.0-48.0 [facility] Comment on above: Performed By: #### A ST, ALT, LDH, URIC #### [facility] [address] [place] [address] Dr. Giuseppe Salmeron Hemoglobin (Bld) [Mass/Vol] 12.2 g/dL Normal 12.0-16.0 [facility] Comment on above: Performed By: #### A ST, ALT, LDH, URIC #### [facility] [address] [place] [address] Dr. Giuseppe Salmeron IG # 0.02 10e3/ul Normal 0.00-0.03 [facility] Comment on above: Performed By: #### A ST, ALT, LDH, URIC #### [facility] [address] [place] [address] Dr. Giuseppe Salmeron IG % 0.3 % Normal 0.0-0.5 [facility] Comment on above: Performed By: #### A ST, ALT, LDH, URIC #### [facility] [address] [place] [address] Dr. Giuseppe Salmeron LYMPH # 2.6 103/ul Normal 1.2-3.[address] [facility] Comment on above: Performed By: #### A ST, ALT, LDH, URIC #### [facility] [address] [place] [address] Dr. Giuseppe Salmeron Lymphocytes/100 WBC (Bld) 35.4 % Normal 20.5-60.0 [facility] Comment on above: Performed By: #### A ST, ALT, LDH, URIC #### [facility] [address] [place] [address] Dr. Giuseppe Salmeron MANUAL DIFF REQ NO Normal [facility] Comment on above: Performed By: #### A ST, ALT, LDH, URIC #### [facility] [address] [address] [address] Giuseppe Salmeron MCH (RBC) [Entitic mass] 26.5 pg Critically low 26.7-34.[address] [facility] Comment on above: Performed By: #### A ST, ALT, LDH, URIC #### [facility] [address] [place] [address] Dr. Giuseppe Salmeron MCHC (RBC) [Mass/Vol] 31.4 g/dL Normal 29.9-35.[address] [facility] Comment on above: Performed By: #### A ST, ALT, LDH, URIC #### [facility] [address] [place] [address] Dr. Giuseppe Salmeorn MCV (RBC) [Entitic vol] 84.2 fL Normal 81.0-99.0 [facility] Comment on above: Performed By: #### A ST, ALT, LDH, URIC #### [facility] [address] [address] [address] Giuseppe Salmeron MONO # 0.5 103/ul Normal 0.3-0.8 [facility] Comment on above: Performed By: #### A ST, ALT, LDH, URIC #### [facility] [address] [place] [address] Dr. Giuseppe Salmeron Monocytes/100 WBC (Bld) 7.2 % Normal 1.7-12.[address] [facility] Comment on above: Performed By: #### A ST, ALT, LDH, URIC #### [facility] [address] [place] [address] Dr. Giuseppe Salmeron NEUT # 4.2 103/ul Normal 1.4-6.[address] [facility] Comment on above: Performed By: #### A ST, ALT, LDH, URIC #### [facility] [address] [place] [address] Dr. Giuseppe Salmeron Neutrophils/100 WBC (Bld) 55.7 % Normal 43.0-75.0 [facility] Comment on above: Performed By: #### A ST, ALT, LDH, URIC #### [facility] [address] [place] [address] Dr. Giuseppe Salmeron Platelet mean volume (Bld) [Entitic vol] 9.5 fL Normal 9.5-13.5 [facility] Comment on above: Performed By: #### A ST, ALT, LDH, URIC #### [facility] [address] [address] [address] Giuseppe Salmeron PLT 312 103/ul Normal 150-[address] [facility] Comment on above: Performed By: #### A ST, ALT, LDH, URIC #### [facility] [address] [place] [address] Dr. Giuseppe Salmeron RBC 4.61 106/ul Normal 4.20-5.40 [facility] Comment on above: Performed By: #### A ST, ALT, LDH, URIC #### [facility] [address] [place] [address] Dr. Giuseppe Salmeron WBC 7.5 103/ul Normal 4.0-11.0 [facility] Comment on above: Performed By: #### A ST, ALT, LDH, URIC #### [facility] [address] [place] [address] Dr. Giuseppe Salmeron LDHon 10-02-2021 LDH 237 U/L Critically high 81-234 [facility] Comment on above: Performed By: #### A ST, ALT, LDH, URIC #### [facility] [address] [place] [address] Dr. Giuseppe Salmeron PROTIMEon 10-02-2021 INR Coag (PPP) [Relative time] 1.03 {INR} Normal [facility] Comment on above: Performed By: #### A ST, ALT, LDH, URIC #### [facility] [address] [place] [address] Dr. Giuseppe Salmeron INR GUIDELINES SEE BELOW Normal The [facility] Comment on above: Result Comment: NATALY RED INR: 2.0 - 3.0 CONDITIONS NOT LISTED BELOW 2.5 - 3.5 FOR PROSTHETIC HEART VALVE REPLACEMENT 2.5 - 3.5 RECURRENT THROMBOSIS Performed By: #### A ST, ALT, LDH, URIC #### [facility] [address] [place] [address] Dr. Giuseppe Salmeron PT Coag (PPP) [Time] 11.1 s Normal 9.0-11.6 [facility] Comment on above: Performed By: #### A ST, ALT, LDH, URIC #### [facility] [address] [place] [address] Dr. Giuseppe Salmeron PTTon 10-02-2021 aPTT Coag (Bld) [Time] 32.4 s Normal 22.3-36.[address] [facility] Comment on above: Performed By: #### A ST, ALT, LDH, URIC #### [facility] [address] [place] [address] Dr. Giuseppe Salmeron SGOTodavid 10-02-2021 AST [Catalytic activity/Vol] 17 U/L Normal 15-37 [facility] Comment on above: Performed By: #### A ST, ALT, LDH, URIC #### [facility] [address] [place] [address] Dr. [facility]-2021 ALT [Catalytic activity/Vol] 20 U/L Normal 14-59 [facility] Comment on above: Performed By: #### A ST, ALT, LDH, URIC #### [facility] [address] [place] [address] Dr. Giuseppe Salmeron UA (CLEAN/CATCH) SAS ADMINISTRATOR/MICRO I F IND.on 10-02-2021 Bilirubin Ql (U) Negative Normal NEGATIVE [facility] Comment on above: Performed By: #### A ST, ALT, LDH, URIC #### [facility] [address] [place] [address] Dr. Gisueppe Salmeron Clarity (U) CLEAR Normal CLEAR [facility] Comment on above: Performed By: #### A ST, ALT, LDH, URIC #### [facility] [address] [place] [address] Dr. Giuseppe Salmeron Color (U) LT. YELLOW Normal YELLOW [facility] Comment on above: Performed By: #### A ST, ALT, LDH, URIC #### [facility] [address] [place] [address] Dr. Giuseppe Salmeron Glucose Ql (U) Negative Normal NEGATIVE [facility] Comment on above: Performed By: #### A ST, ALT, LDH, URIC #### [facility] [address] [place] [address] Dr. Giuseppe Salmeron Hemoglobin Ql (U) MODERATE Abnormal NEGATIVE [facility] Comment on above: Performed By: #### A ST, ALT, LDH, URIC #### [facility] [address] [place] [address] Dr. Giuseppe Salmeron Ketones Ql (U) Negative Normal NEGATIVE [facility] Comment on above: Performed By: #### A ST, ALT, LDH, URIC #### [facility] [address] [place] [address] Dr. Giuseppe Salmeron LEUKOCYTES Negative Normal NEGATIVE [facility] Comment on above: Performed By: #### A ST, ALT, LDH, URIC #### [facility] [address] [place] [address] Dr. Giuseppe Salmeron Nitrite Ql (U) Negative Normal NEGATIVE [facility] Comment on above: Performed By: #### A ST, ALT, LDH, URIC #### [facility] [address] [place] [address] Dr. Giuseppe Salmeron pH (U) 6.0 [pH] Normal 5-9 [facility] Comment on above: Performed By: #### A ST, ALT, LDH, URIC #### [facility] [address] [place] [address] Dr. Giuseppe Salmeron SPEC GRAVITY 1.020 Normal 1.005-<=1.0 25 [facility] Comment on above: Performed By: #### A ST, ALT, LDH, URIC #### [facility] [address] [place] [address] Dr. Giuseppe Salmeron UA PROTEIN Negative Normal NEGATIVE/ TRACE [facility] Comment on above: Performed By: #### A ST, ALT, LDH, URIC #### [facility] [address] [place] [address] Dr. Giuseppe Salmeron UR MICRO IND INDICATED Normal [facility] Comment on above: Performed By: #### A ST, ALT, LDH, URIC #### [facility] [address] [place] [address] Dr. Giuseppe Slameron Urobilinogen Qn (U) 0.2 {Luis'U}/dL Normal 0.2 - 1. [address] [facility] Comment on above: Performed By: #### A ST, ALT, LDH, URIC #### [facility] [address] [place] [address] Dr. Giuseppe Salmeron URIC ACID SERUMon 10-02-2021 Urate [Mass/Vol] 5.6 mg/dL Normal 2.6-6.0 The [facility] Comment on above: Performed By: #### A ST, ALT, LDH, URIC #### [facility] [address] [place] [address] Dr. Giuseppe Salmeron URINE MICROSCOPIC ONLYon BACTERIA NONE SEEN Normal NONE SEEN [facility] Comment on above: Performed By: #### A ST, ALT, LDH, URIC #### [facility] [address] [place] [address] Dr. Giuseppe Salmeron Bacteria identified Cx Nom (U) NOT INDICATED Normal [facility] Comment on above: Performed By: #### A ST, ALT, LDH, URIC #### [facility] [address] [place] [address] Dr. Giuseppe Salmeron CAST NONE SEEN Normal NONE SEEN [facility] Comment on above: Performed By: #### A ST, ALT, LDH, URIC #### [facility] [address] [place] [address] Dr. Giuseppe Salmeron Crystals LM Nom (Urine sed) NONE SEEN Normal NONE SEEN [facility] Comment on above: Performed By: #### A ST, ALT, LDH, URIC #### [facility] [address] [place] [address] Dr. Giuseppe Salmeron Epithelial cells LM Ql (Urine sed) FEW Abnormal NONE SEEN /RARE [facility] Comment on above: Performed By: #### A ST, ALT, LDH, URIC #### [facility] [address] [place] [address] Dr. Giuseppe Salmeron MUCOUS TRACE Abnormal NONE SEEN [facility] Comment on above: Performed By: #### A ST, ALT, LDH, URIC #### [facility] [address] [place] [address] Dr. Giuseppe Salmeron RBC 0-2 Normal 0-2 [facility] Comment on above: Performed By: #### A ST, ALT, LDH, URIC #### [facility] [address] [place] [address] Dr. Giuseppe Salmeron WBC NONE SEEN Normal NONE SEEN [facility] Comment on above: Performed By: #### A ST, ALT, LDH, URIC #### [facility] [address] [place] [address] Dr. Giuseppe Salmeron CBC AUTO DIFFon 09-24-2021 BASO # 0.1 103/ul Normal 0.0-0.1 [facility] Comment on above: Performed By: #### C BC #### [facility] [address] [place] [address] Dr. Giuseppe Salmeron Basophils/100 WBC (Bld) 0.5 % Normal 0.2-2.0 [facility] Comment on above: Performed By: #### C BC #### [facility] [address] [place] [address] Dr. Giuseppe Salmeron EO # 0.1 103/ul Normal 0.0-0.7 [facility] Comment on above: Performed By: #### C BC #### [facility] [address] [place] [address] Dr. Giuseppe Salmeron Eosinophils/100 WBC (Bld) 0.8 % Critically low 0.9-7.0 [facility] Comment on above: Performed By: #### C BC #### [facility] [address] [place] [address] Dr. Giuseppe Salmeron Erythrocyte distribution width (RBC) [Ratio] 14.6 % Normal 11.0-15.0 [facility] Comment on above: Performed By: #### C BC #### [facility] [address] [place] [address] Dr. Giuseppe Salmeron Hematocrit (Bld) [Volume fraction] 33.2 % Critically low 36.0-48.0 [facility] Comment on above: Performed By: #### C BC #### [facility] [address] [place] [address] Dr. Giuseppe Salmeron Hemoglobin (Bld) [Mass/Vol] 10.5 g/dL Critically low 12.0-16.0 [facility] Comment on above: Performed By: #### C BC #### [facility] [address] [place] [address] Dr. Giuseppe Salmeron IG # 0.05 10e3/ul Critically high 0.00-0.03 [facility] Comment on above: Performed By: #### C BC #### [facility] [address] [place] [address] Dr. Giuseppe Salmeron IG % 0.5 % Normal 0.0-0.5 [facility] Comment on above: Performed By: #### C BC #### [facility] [address] [place] [address] Dr. Giuseppe Salmeron LYMPH # 2.3 103/ul Normal 1.2-3.8 [facility] Comment on above: Performed By: #### C BC #### [facility] [address] [place] [address] Dr. Giuseppe Salmeron Lymphocytes/100 WBC (Bld) 22.5 % Normal 20.5-60.0 [facility] Comment on above: Performed By: #### C BC #### [facility] [address] [place] [address] Dr. Giuseppe Salmeron MANUAL DIFF REQ NO Normal [facility] Comment on above: Performed By: #### C BC #### [facility] [address] [place] [address] Dr. Giuseppe Salmeron MCH (RBC) [Entitic mass] 27.1 pg Normal 26.7-34.0 [facility] Comment on above: Performed By: #### C BC #### [facility] [address] [place] [address] Dr. Giuseppe Salmeron MCHC (RBC) [Mass/Vol] 31.6 g/dL Normal 29.9-35.2 [facility] Comment on above: Performed By: #### C BC #### [facility] [address] [place] [address] Dr. Giuseppe Salmeron MCV (RBC) [Entitic vol] 85.8 fL Normal 81.0-99.0 [facility] Comment on above: Performed By: #### C BC #### [facility] [address] [address] [address] Giuseppe Salmeron MONO # 0.6 103/ul Normal 0.3-0.8 [facility] Comment on above: Performed By: #### C BC #### [facility] [address] [place] [address] Dr. Giuseppe Salmeron Monocytes/100 WBC (Bld) 5.8 % Normal 1.7-12.0 [facility] Comment on above: Performed By: #### C BC #### [facility] [address] [place] [address] Dr. Giuseppe Salmeron NEUT # 7.2 103/ul Critically high 1.4-6.5 [facility] Comment on above: Performed By: #### C BC #### [facility] [address] [place] [address] Dr. Giuseppe Salmeron Neutrophils/100 WBC (Bld) 69.9 % Normal 43.0-75.0 [facility] Comment on above: Performed By: #### C BC #### [facility] [address] [place] [address] Dr. Giuseppe Salmeron Platelet mean volume (Bld) [Entitic vol] 10.6 fL Normal 9.5-13.[address] [facility] Comment on above: Performed By: #### C BC #### [facility] [address] [place] [address] Dr. Giuseppe Salmeron PLT 174 103/ul Normal 150-[address] [facility] Comment on above: Performed By: #### C BC #### [facility] [address] [place] [address] Dr. Giuseppe Salmeron RBC 3.87 106/ul Critically low 4.20-5.40 [facility] Comment on above: Performed By: #### C BC #### [facility] [address] [place] [address] Dr. Giuseppe Salmeron WBC 10.3 103/ul Normal 4.0-11.[address] [facility] Comment on above: Performed By: #### C BC #### [facility] [address] [place] [address] Dr. Giuseppe Salmeron CBC AUTO DIFFon 09-23-2021 BASO # 0.0 103/ul Normal 0.0-0.1 [facility] Comment on above: Performed By: #### A ST, ALT, LDH, URIC #### [facility] [address] [place] [address] Dr. Giuseppe Salmeron Basophils/100 WBC (Bld) 0.3 % Normal 0.2-2.0 [facility] Comment on above: Performed By: #### A ST, ALT, LDH, URIC #### [facility] [address] [place] [address] Dr. Giuseppe Salmeron EO # 0.0 103/ul Normal 0.0-0.[address] [facility] Comment on above: Performed By: #### A ST, ALT, LDH, URIC #### [facility] [address] [place] [address] Dr. Giuseppe Salmeron Eosinophils/100 WBC (Bld) 0.3 % Critically low 0.9-7.0 [facility] Comment on above: Performed By: #### A ST, ALT, LDH, URIC #### [facility] [address] [place] [address] Dr. Giuseppe Salmeron Erythrocyte distribution width (RBC) [Ratio] 14.3 % Normal 11.0-15.[address] [facility] Comment on above: Performed By: #### A ST, ALT, LDH, URIC #### [facility] [address] [place] [address] Dr. Giuseppe Salmeron Hematocrit (Bld) [Volume fraction] 37.1 % Normal 36.0-48.[address] [facility] Comment on above: Performed By: #### A ST, ALT, LDH, URIC #### [facility] [address] [address] [address] Giuseppe Salmeron Hemoglobin (Bld) [Mass/Vol] 12.2 g/dL Normal 12.0-16.0 [facility] [facility] Comment on above: Performed By: #### A ST, ALT, LDH, URIC #### [facility] [address] [place] [address] Dr. Giuseppe Salmeron IG # 0.04 10e3/ul Critically high 0.00-0.03 [facility] Comment on above: Performed By: #### A ST, ALT, LDH, URIC #### [facility] [address] [address] [address] Giuseppe Salmeron IG % 0.3 % Normal 0.0-0.5 [facility] Comment on above: Performed By: #### A ST, ALT, LDH, URIC #### [facility] [address] [place] [address] Dr. Giuseppe Salmeron LYMPH # 2.6 103/ul Normal 1.2-3.8 [facility] Comment on above: Performed By: #### A ST, ALT, LDH, URIC #### [facility] [address] [place] [address] Dr. Giuseppe Salmeron Lymphocytes/100 WBC (Bld) 22.7 % Normal 20.5-60.0 [facility] Comment on above: Performed By: #### A ST, ALT, LDH, URIC #### [facility] [address] [place] [address] Dr. Giuseppe Salmeron MANUAL DIFF REQ NO Normal [facility] Comment on above: Performed By: #### A ST, ALT, LDH, URIC #### [facility] [address] [place] [address] Dr. Giuseppe Salmeron MCH (RBC) [Entitic mass] 27.7 pg Normal 26.7-34.0 [facility] Comment on above: Performed By: #### A ST, ALT, LDH, URIC #### [facility] [address] [place] [address] Dr. Giuseppe Salmeron MCHC (RBC) [Mass/Vol] 32.9 g/dL Normal 29.9-35.[address] [facility] Comment on above: Performed By: #### A ST, ALT, LDH, URIC #### [facility] [address] [place] [address] Dr. Giuseppe Salmeron MCV (RBC) [Entitic vol] 84.3 fL Normal 81.0-99.[address] [facility] Comment on above: Performed By: #### A ST, ALT, LDH, URIC #### [facility] [address] [place] [address] Dr. Giuseppe Salmeron MONO # 0.6 103/ul Normal 0.3-0.[address] [facility] Comment on above: Performed By: #### A ST, ALT, LDH, URIC #### [facility] [address] [place] [address] Dr. Giuseppe Salmeron Monocytes/100 WBC (Bld) 5.1 % Normal 1.7-12.[address] [facility] Comment on above: Performed By: #### A ST, ALT, LDH, URIC #### [facility] [address] [place] [address] Dr. Giuseppe Salmeron NEUT # 8.2 103/ul Critically high 1.4-6.5 [facility] Comment on above: Performed By: #### A ST, ALT, LDH, URIC #### [facility] [address] [place] [address] Dr. Giuseppe Salmeron Neutrophils/100 WBC (Bld) 71.3 % Normal 43.0-75.[address] [facility] Comment on above: Performed By: #### A ST, ALT, LDH, URIC #### [facility] [address] [place] [address] Dr. Giuseppe Salmeron Platelet mean volume (Bld) [Entitic vol] 11.2 fL Normal 9.5-13.[address] [facility] Comment on above: Performed By: #### A ST, ALT, LDH, URIC #### [facility] [address] [place] [address] Dr. Giuseppe Salmeron PLT 176 103/ul Normal 150-[address] [facility] Comment on above: Performed By: #### A ST, ALT, LDH, URIC #### [facility] [address] [place] [address] Dr. Giuseppe Salmeron RBC 4.40 106/ul Normal 4.20-5.[address] [facility] Comment on above: Performed By: #### A ST, ALT, LDH, URIC #### [facility] [address] [place] [address] Dr. Giuseppe Salmeron WBC 11.5 103/ul Critically high 4.0-11.0 [facility] Comment on above: Performed By: #### A ST, ALT, LDH, URIC #### [facility] [address] [place] [address] Dr. Giuseppe Salmeron CULTURE URINEon 09-23-2021 CULTURE URINE Culture Observations : LIGHT GROWTH OF MIXED GENITAL JULY. NO POTENTIAL PATHOGENS SEEN. Normal The [facility] Comment on above: Performed By: #### A ST, ALT, LDH, URIC #### [facility] [address] [place] [address] Dr. Giuseppe Salmeron DRUG SCREEN RAPID (URINE)on 09-23-2021 AMP Negative Normal NEGATIVE [facility] Comment on above: Performed By: #### A ST, ALT, LDH, URIC #### [facility] [address] [place] [address] Dr. Giuseppe Salmeron BAR Negative Normal NEGATIVE [facility] Comment on above: Performed By: #### A ST, ALT, LDH, URIC #### [facility] [address] [place] [address] Dr. Giuseppe Salmeron BUP Negative Normal NEGATIVE The [facility] Comment on above: Performed By: #### A ST, ALT, LDH, URIC #### [facility] [address] [place] [address] Dr. Giuseppe Salmeron BZO Negative Normal NEGATIVE [facility] Comment on above: Performed By: #### A ST, ALT, LDH, URIC #### [facility] [address] [place] [address] Dr. Giuseppe Salmeron CHRISTIAN Negative Normal NEGATIVE [facility] Comment on above: Performed By: #### A ST, ALT, LDH, URIC #### [facility] [address] [address] [address] Giuseppe Salmeron CUT-OFFS SEE BELOW Normal [facility] Comment on above: Result Comment: AMP (Amphetamine): 500ng/mL, BAR (Barbituates): 200 ng/mL, BZO (Benzodiazepines): 150 ng/mL, BUP (Buprenorphine): 10 ng/mL, CHRISTIAN (Cocaine): 150 ng/mL, mAMP (Methamphetamine): 500 ng/mL, MTD (Methadone): 200 ng/mL, OPI (Opiates): 100 ng/mL, OXY (Oxycodone): 100 ng/mL, PCP (Phencyclidine): 25 ng/mL, PPX (Propoxyphene): 300 ng/mL, THC (Cannabinoids): 50 ng/mL, TCA (Trycyclic Antidepressants): 300 ng/mL Performed By: #### A ST, ALT, LDH, URIC #### [facility] [address] [place] [address] Dr. Giuseppe Salmeron DRUG CUT HEADER DRUG CLASS TEST SYST EM CUT-OFF CONCENTRATIONS ARE FOLLOWS: Normal [facility] Comment on above: Performed By: #### A ST, ALT, LDH, URIC #### [facility] [address] [address] [address] Giuseppe Salmeron mAMP Negative Normal NEGATIVE [facility] Comment on above: Performed By: #### A ST, ALT, LDH, URIC #### [facility] [address] [address] [address] Giuseppe Salmeron MTD Negative Normal NEGATIVE [facility] Comment on above: Performed By: #### A ST, ALT, LDH, URIC #### [facility] [address] [address] [address] Giuseppe Salmeron OPI Negative Normal NEGATIVE [facility] Comment on above: Performed By: #### A ST, ALT, LDH, URIC #### [facility] [address] [place] [address] Dr. Giuseppe Salmeron OXY Negative Normal NEGATIVE [facility] Comment on above: Performed By: #### A ST, ALT, LDH, URIC #### [facility] [address] [place] [address] Dr. Giuseppe Salmeron PCP Negative Normal NEGATIVE [facility] Comment on above: Performed By: #### A ST, ALT, LDH, URIC #### [facility] [address] [place] [address] Dr. Giuseppe Salmeron PPX Negative Normal NEGATIVE [facility] Comment on above: Performed By: #### A ST, ALT, LDH, URIC #### [facility] [address] [place] [address] Dr. Giuseppe Salmeron TCA Negative Normal NEGATIVE [facility] Comment on above: Performed By: #### A ST, ALT, LDH, URIC #### [facility] [address] [place] [address] Dr. Giuseppe Salmeron THC Negative Normal NEGATIVE [facility] Comment on above: Performed By: #### A ST, ALT, LDH, URIC #### [facility] [address] [place] [address] Dr. Giuseppe Salmeron TYPE AND SCREENon 09-23-2021 TYPE AND SCREEN Negative Normal [facility] Comment on above: Performed By: #### A ST, ALT, LDH, URIC #### [facility] [address] [place] [address] Dr. Giuseppe Salmeron UA (CLEAN/CATCH) SAS ADMINISTRATOR/MICRO I F IND.on 09-23-2021 Bilirubin Ql (U) Negative Normal NEGATIVE [facility] Comment on above: Performed By: #### A ST, ALT, LDH, URIC #### [facility] [address] [place] [address] Dr. Giuseppe Salmeron Clarity (U) SL CLOUDY Abnormal CLEAR [facility] Comment on above: Performed By: #### A ST, ALT, LDH, URIC #### [facility] [address] [place] [address] Dr. Giuseppe Salmeron Color (U) LT. YELLOW Normal YELLOW [facility] Comment on above: Performed By: #### A ST, ALT, LDH, URIC #### [facility] [address] [place] [address] Dr. Giuseppe Salmeron Glucose Ql (U) Negative Normal NEGATIVE [facility] Comment on above: Performed By: #### A ST, ALT, LDH, URIC #### [facility] [address] [place] [address] Dr. Giuseppe Salmeron Hemoglobin Ql (U) SMALL Abnormal NEGATIVE [facility] Comment on above: Performed By: #### A ST, ALT, LDH, URIC #### [facility] [address] [place] [address] Dr. Giuseppe Salmeron Ketones Ql (U) Negative Normal NEGATIVE [facility] Comment on above: Performed By: #### A ST, ALT, LDH, URIC #### [facility] [address] [place] [address] Dr. Giuseppe Salmeron LEUKOCYTES TRACE Abnormal NEGATIVE [facility] Comment on above: Performed By: #### A ST, ALT, LDH, URIC #### [facility] [address] [place] [address] Dr. Giuseppe Salmeron Nitrite Ql (U) Negative Normal NEGATIVE [facility] Comment on above: Performed By: #### A ST, ALT, LDH, URIC #### [facility] [address] [place] [address] Dr. Giuseppe Salmeron pH (U) 6.5 [pH] Normal 5-9 [facility] Comment on above: Performed By: #### A ST, ALT, LDH, URIC #### [facility] [address] [place] [address] Dr. Giuseppe Salmeron SPEC GRAVITY 1.020 Normal 1.005-<=1.0 25 [facility] Comment on above: Performed By: #### A ST, ALT, LDH, URIC #### [facility] [address] [place] [address] Dr. Giuseppe Salmeron UA PROTEIN Negative Normal NEGATIVE/ TRACE The [facility] Comment on above: Performed By: #### A ST, ALT, LDH, URIC #### [facility] [address] [place] [address] Dr. Giuseppe Salmeron UR MICRO IND INDICATED Normal [facility] Comment on above: Performed By: #### A ST, ALT, LDH, URIC #### [facility] [address] [place] [address] Dr. Giuseppe Salmeron Urobilinogen Qn (U) 0.2 {Luis'U}/dL Normal 0.2 - 1. [address] [facility] Comment on above: Performed By: #### A ST, ALT, LDH, URIC #### [facility] [address] [place] [address] Dr. Giuseppe Salmeron URINE MICROSCOPIC ONLYon BACTERIA SMALL Abnormal NONE SEEN The [facility] Comment on above: Performed By: #### A ST, ALT, LDH, URIC #### [facility] [address] [place] [address] Dr. Giuseppe Salmeron Bacteria identified Cx Nom (U) INDICATED Normal [facility] Comment on above: Performed By: #### A ST, ALT, LDH, URIC #### [facility] [address] [place] [address] Dr. Giuseppe Salmeron CAST NONE SEEN Normal NONE SEEN [facility] Comment on above: Performed By: #### A ST, ALT, LDH, URIC #### [facility] [address] [place] [address] Dr. Giuseppe Salmeron Crystals LM Nom (Urine sed) NONE SEEN Normal NONE SEEN The [facility] Comment on above: Performed By: #### A ST, ALT, LDH, URIC #### [facility] [address] [place] [address] Dr. Giuseppe Salmeron Epithelial cells LM Ql (Urine sed) RARE Normal NONE SEEN /RARE [facility] Comment on above: Performed By: #### A ST, ALT, LDH, URIC #### [facility] [address] [place] [address] Dr. Giuseppe Salmeron MUCOUS NONE SEEN Normal NONE SEEN The [facility] Comment on above: Performed By: #### A ST, ALT, LDH, URIC #### [facility] [address] [place] [address] Dr. Giuseppe Salmeron RBC 0-2 Normal 0-[address] [facility] Comment on above: Performed By: #### A ST, ALT, LDH, URIC #### [facility] [address] [place] [address] Dr. Giuseppe Salmeron WBC 2-5 Abnormal NONE SEEN The [facility] Comment on above: Performed By: #### A ST, ALT, LDH, URIC #### [facility] [address] [place], [place] [address] Dr. Giuseppe Salmeron Covid-19 PCR ([facility])on SARS-CoV-2 (COVID-19) RNA MICHAEL+probe Ql (Unsp spec) Not detected Normal NOT DETECTED [facility] Comment on above: Result Comment: This test is not yet approved or cleared by the [place] FDA. When there are no FDA-approved or cleared tests available, and other criteria are met, FDA can make tests available under an emergency access mechanism called an Emergency Use Authorization (EUA). The EUA for this test is supported by the Electron Gun Inspector of Health and Human Service's (HHS's) declaration that circumstances exist to justify the emergency use of in vitro diagnostics for the detection and/or diagnosis of the virus that causes COVID-19. This EUA will remain in effect (meaning this test can be used) for the duration of the COVID-19 declaration justifying emergency of IVDs, unless it is terminated or revoked by FDA (after which the test may no longer be used). When diagnostic testing is negative, the possibility of a false negative should be considered in the context of a patient's recent exposures and the presence of clinical signs and symptoms consistent with SARS-CoV-2. Performed By: #### C VDTBH #### [facility] [address] [place], [place] [address] Dr. Giuseppe Salmeron Complete Blood Count + Diffe april 09-09-2021 Basophils/100 WBC (Bld) 0.2 % 0.0 - 2.0 [facility] Work Phone: Erythrocyte distribution width (RBC) [Ratio] 14.4 % See Below [facility] Work Phone: Comment on above: Reference Range: 11. 5 - 14.5 Hematocrit (Bld) [Volume fraction] 36.8 % See Below [facility] Work Phone: Comment on above: Reference Range: 36. 0 - 46.0 Hemoglobin (Bld) [Mass/Vol] 11.9 g/dL below low threshold See Below [facility] Work Phone: Comment on above: Reference Range: 12. 0 - 16.0 Lymphocytes/100 WBC (Bld) 22.5 % See Below [facility] Work Phone: Comment on above: Reference Range: 13. 0 - 44.0 MCHC (RBC) [Mass/Vol] 32.3 g/dL See Below [facility] Work Phone: Comment on above: Reference Range: 32. 0 - 36.0 MCV (RBC) [Entitic vol] 85 fL 80 - 100 [facility] Work Phone: Monocytes/100 WBC (Bld) 5.2 % 2.0 - 10.0 [facility] Work Phone: Neutrophils/100 WBC (Bld) 71.6 % See Below [facility] Work Phone: Comment on above: Reference Range: 40. 0 - 80.0 Platelets (Bld) [#/Vol] 209 10*3/uL 150 - 450 [facility] Work Phone: RBC (Bld) [#/Vol] 4.35 {x10E12/L} See Below [facility] Work Phone: Comment on above: Reference Range: 4.0 0 - 5.20 WBC (Bld) [#/Vol] 10.6 10*3/uL 4.4 - 11.3 [facility] Work Phone: Complete Blood Count + Differential 0.02 {x10E9/L} See Below [facility] Work Phone: Comment on above: Reference Range: 0.0 0 - 0.10 Reference Range: 0.0 0 - 0.70 Complete Blood Count + Differential 0.55 {x10E9/L} See Below [facility] Work Phone: Comment on above: Reference Range: 0.1 0 - 1.00 Complete Blood Count + Differential 2.38 {x10E9/L} See Below [facility] Work Phone: Comment on above: Reference Range: 1.2 0 - 4.80 Complete Blood Count + Differential 7.57 {x10E9/L} See Below [facility] Work Phone: Comment on above: Reference Range: 1.2 0 - 7.70 Complete Blood Count + Differential 0.2 % 0.0 - 6.0 [facility] Work Phone: Complete Blood Count + Differential 0.3 % 0.0 - 0.9 [facility] Work Phone: Comment on above: Immature Granulocyte Count (IG) includes promyelocytes, myelocytes and metamyelocytes but does not include bands. Percent differential counts (%) should be interpreted in the context of the absolute cell counts (cells/L). Ferritin, Serumon 09-09-2021 Ferritin [Mass/Vol] 167 ug/L above high threshold 8 - 150 [facility] Work Phone: Laboratory - Chemistry and C hemistry - challengeon 09-09-2021 Iron [Mass/Vol] 76 ug/dL 35 - 150 [facility] Work Phone: Iron binding capacity [Mass/Vol] 311 ug/dL 240 - 445 [facility] Work Phone: No Panel Informationon 09-09 24 % below low threshold 25 - 45 [facility] Work Phone: C Reactive Protein, Serumon 09-03-2021 CRP [Mass/Vol] 1.27 mg/dL Abnormal [facility] Work Phone: Comment on above: REF VALUE< 1.00 Folate, Serumon 09-03-2021 Folate [Mass/Vol] 10.5 ng/mL >5.0 [facility] Work Phone: Comment on above: Low <3.4Borderline 3 .4-5.0Normal >5.0. Patients receiving more than 5 mg/day of biotin may have interference in test results. A sample should be taken no sooner than eight hours after previous dose. Contact the testing laboratory for additional information. GROUP B STREP CULTUREon 08-16 S. agalactiae Ag Ql (Unsp spec) Culture Observations: NEGATIVE FOR GROUP B STREPTOCOCCUS. Normal The [facility] Comment on above: Performed By: #### A ST, ALT, LDH, URIC #### [facility] [address] [address] [address] Giuseppe Salmeron Sedimentation Rate, Erythroc yteon 09-03-2021 ESR (Bld) [Velocity] 53 mm/h above high threshold 0 - 20 [facility] Work Phone: T-SPOT. TBon 09-03-2021 T-SPOT. TB Passed [facility] Work Phone: T-SPOT. TB 0 1 [facility] Work Phone: T-SPOT. TB Negative See Below [facility] Work Phone: Comment on above: Reference Range: Nor mal Value: NegativeA negative test result does not exclude the possibility of exposure to or infection with Mycobacterium tuberculosis (M. tuberculosis). Patients with recent exposure to TB infected individuals exhibiting a negative T-SPOT.TB result should be considered for retesting within 6 weeks or if other relevant clinical symptoms indicate. Results from T-SPOT.TB testing must be used in conjunction with each individual's epidemiological history, current medical status, and results of other diagnostic evaluations. The T-SPOT.TB test is qualitative and results are reported as positive, borderline or negative, given that the test controls perform as expected. In line with the Centers for Disease Control and Prevention's 2010 recommendation to report quantitative measurements alongside the qualitative result, the laboratory provides spot counts for informational purposes only. The T-SPOT.TB test should not be interpreted as a quantitative test. T4 - Free Thyroxine, Serumon 09-03-2021 Free T4 [Mass/Vol] 1.20 ng/dL above high threshold See Below [facility] [employer] Work Phone: Comment on above: Reference Range: 0.6 1 - 1.12 Thyroxine Free testing is performed using different testing methodology at [facility] than at other [facility]. Direct result comparisons should only be made within the same method.. Biotin can cause falsely elevated free T4 results. Patients taking a Biotin dose of up to 10 mg/day should refrain from taking Biotin for 24 hours before sample collection. Patient taking a Biotin dose of >10 mg/day should consult with their physician or the laboratory before the blood draw. TSH - Thyroid Stimulating Ho rmone, Serumon 09-03-2021 TSH Qn 0.04 m[IU]/L below low threshold See Below [facility] Work Phone: Comment on above: Reference Range: 0.4 4 - 3.98 TSH testing is performed using different testing methodology at [facility] than at other [facility]. Direct result comparisons should only be made within the same method. Tobacco Screening.on Fall risk assessment a) No falls within the last year [facility] Work Phone: Tobacco use status [facility] b) No [facility] Work Phone: Vitamin B12, Serumon Cobalamin (Vitamin B12) [Mass/Vol] 153 pg/mL below low threshold 211 - 911 [facility] Work Phone: T4 - Free Thyroxine, Serumon 08-21-2021 Free T4 [Mass/Vol] 1.30 ng/dL above high threshold See Below [facility] [employer] Work Phone: Comment on above: Reference Range: 0.6 1 - 1.12 Thyroxine Free testing is performed using different testing methodology at [facility] than at other [facility]. Direct result comparisons should only be made within the same method.. Biotin can cause falsely elevated free T4 results. Patients taking a Biotin dose of up to 10 mg/day should refrain from taking Biotin for 24 hours before sample collection. Patient taking a Biotin dose of >10 mg/day should consult with their physician or the laboratory before the blood draw. TSH - Thyroid Stimulating Ho rmone, Serumon 08-21-2021 TSH Qn 0.02 m[IU]/L below low threshold See Below [facility] [place] [address] Work Phone: Comment on above: Reference Range: 0.4 4 - 3.98 TSH testing is performed using different testing methodology at [facility] than at other [facility]. Direct result comparisons should only be made within the same method. PAP ACOG PANEL 2: 30 to 65on 07-24-2021 . . Normal [facility] Comment on above: Result Comment: Perf ormed at: WB Performed By: #### A ST, ALT, LDH, URIC #### [facility] [address] [place], [place] [address] Dr. Giuseppe Salmeron Age Gdln ACOG Testing -65 [facility] Comment on above: Performed By: #### A ST, ALT, LDH, URIC #### [facility] [address] [place], [place] [address] Dr. Giuseppe Salmeron DIAGNOSIS: Comment [facility] Comment on above: Result Comment: NEGA TIVE FOR INTRAEPITHELIAL LESION OR MALIGNANCY. Performed at: WB Performed By: #### A ST, ALT, LDH, URIC #### [facility] [address] [place], [place] [address] Dr. Giuseppe Salmeron HPV Aptima QNSPAP [facility] Comment on above: Result Comment: Test not performed. Liquid based PAP vial contained insufficient specimen for molecular testing; likely a consequence of insufficient cellularity in original collection. This nucleic acid amplification test detects fourteen high-risk HPV types (16,18,31,33,35,39,45,51,52,56,58,59,66,68) without differentiation. Performed at: =G Performed By: #### A ST, ALT, LDH, URIC #### [facility] [address] [place] [address] [address] Giuseppe Salmeron Methodology: Comment Normal [facility] Comment on above: Result Comment: This liquid based ThinPrep(R) pap test was screened with the use of an image guided system. Performed at: WB Performed By: #### A ST, ALT, LDH, URIC #### [facility] [address] [place] [address] [address] Giuseppe Salmeron Note: Comment Normal [facility] Comment on above: Result Comment: The Pap smear is a screening test designed to aid in the detection of premalignant and malignant conditions of the uterine cervix. It is not a diagnostic procedure and should not be used as the sole means of detecting cervical cancer. Both false-positive and false-negative reports do occur. . Performed at: WB Performed By: #### A ST, ALT, LDH, URIC #### [facility] [address] [place] [address] [address] Giuseppe Salmeron Performed by: Comment Normal [facility] Comment on above: Result Comment: Bertha Natarajan, Shoe Coverer (ASCP) Performed at: WB Performed By: #### A ST, ALT, LDH, URIC #### [facility] [address] [place] [address] Dr. Giuseppe Salmeron Specimen adequacy: Comment Normal [facility] Comment on above: Result Comment: Sati sfactory for evaluation. No endocervical component is identified. Performed at: WB Performed By: #### A ST, ALT, LDH, URIC #### [facility] [address] [place] [address] Dr. Giuseppe Salmeron CHLAMYDIA/GONOCOCCUS MICHAEL (SW AB/URINE/PAPon 07-23-2021 Chlamydia trachomatis, MICHAEL Negative Normal Negative [facility] Comment on above: Performed By: #### C T/NGNA #### [facility] [address] [place] [address] Dr. Giuseppe Salmeron Neisseria gonorrhoeae, MICHAEL Negative Normal Negative [facility] Comment on above: Performed By: #### C T/NGNA #### [facility] [address] [place] [address] [address] Giuseppe Salmeron Tobacco Screening.on 022 Tobacco use status CPHS c) Screening not indicated MP-Ot olaryng ology-[facility] ke [facility] 250 Work Phone: T4 - Free Thyroxine, Serumon 07-04-2021 Free T4 [Mass/Vol] 1.11 ng/dL See Below MG-End ocrino logy-[employer] [address] Work Phone: Comment on above: Reference Range: 0.6 1 - 1.12 Thyroxine Free testing is performed using different testing methodology at [facility] than at other system hospitals. Direct result comparisons should only be made within the same method.. Biotin can cause falsely elevated free T4 results. Patients taking a Biotin dose of up to 10 mg/day should refrain from taking Biotin for 24 hours before sample collection. Patient taking a Biotin dose of >10 mg/day should consult with their physician or the laboratory before the blood draw. TSH - Thyroid Stimulating Ho rmone, Serumon 07-04-2021 TSH Qn 0.08 m[IU]/L below low threshold See Below MG-Endocrino logy-[employer] [address] Work Phone: Comment on above: Reference Range: 0.4 4 - 3.98 TSH testing is performed using different testing methodology at [facility] than at other system hospitals. Direct result comparisons should only be made within the same method. Complete Blood Count + Diffe rentialon 06-22-2021 Basophils/100 WBC (Bld) 0.3 % 0.0 - 2.0 MG-Endocrino logy-[employer] [address] Work Phone: Erythrocyte distribution width (RBC) [Ratio] 13.2 % See Below MG-Endocrino logy-[employer] Work Phone: Comment on above: Reference Range: 11. 5 - 14.5 Hematocrit (Bld) [Volume fraction] 35.7 % below low threshold See Below MG-Endocrino logy-[employer] Work Phone: Comment on above: Reference Range: 36. 0 - 46.0 Hemoglobin (Bld) [Mass/Vol] 11.4 g/dL below low threshold See Below [facility]-Endocrino log[facility] Luis M [address] Work Phone: Comment on above: Reference Range: 12. 0 - 16.0 Lymphocytes/100 WBC (Bld) 18.9 % See Below [facility]ocr[facility] Luis M [address] Work Phone: Comment on above: Reference Range: 13. 0 - 44.0 MCHC (RBC) [Mass/Vol] 31.9 g/dL below low threshold See Below MG-Endocrino logy[facility] [place] [address] Work Phone: Comment on above: Reference Range: 32. 0 - 36.0 MCV (RBC) [Entitic vol] 86 fL 80 - 100 [facility]-Endocrino log[facility] Luis M [address] Work Phone: [phone] Monocytes/100 WBC (Bld) 4.7 % 2.0 - 10.0 [facility]-Endocrino log[facility] Luis M [employer] Work Phone: [phone] Neutrophils/100 WBC (Bld) 75.5 % See Below [facility]-Endocrino [facility] Luis M [address] Work Phone: Comment on above: Reference Range: 40. 0 - 80.0 Platelets (Bld) [#/Vol] 235 10*3/uL 150 - 450 [facility]-Endocrino log[facility] Luis M [address] Work Phone: [phone] RBC (Bld) [#/Vol] 4.13 {x10E12/L} See Below MG -Endocrino logy-[facility] [place] [address] Work Phone: Comment on above: Reference Range: 4.0 0 - 5.20 WBC (Bld) [#/Vol] 10.3 10*3/uL 4.4 - 11.3 MG-En docrino logy-[facility] [employer] [address] Work Phone: Complete Blood Count + Differential 0.03 {x10E9/L} See Below MG-Endocrino logy-[facility] [place] [address] Work Phone: Comment on above: Reference Range: 0.0 0 - 0.10 Complete Blood Count + Differential 0.02 {x10E9/L} See Below MG-Endocrino logy-[facility] [employer] Work Phone: Comment on above: Reference Range: 0.0 0 - 0.70 Complete Blood Count + Differential 0.48 {x10E9/L} See Below MG-Endocrino logy-[facility] [employer] Work Phone: Comment on above: Reference Range: 0.1 0 - 1.00 Complete Blood Count + Differential 1.95 {x10E9/L} See Below MG-Endocrino logy-[facility] [employer] Work Phone: Comment on above: Reference Range: 1.2 0 - 4.80 Complete Blood Count + Differential 7.78 {x10E9/L} above high threshold See Below MG-Endocrino logy-[facility] [employer] Work Phone: Comment on above: Reference Range: 1.2 0 - 7.70 Complete Blood Count + Differential 0.2 % 0.0 - 6.0 MG-Endocrino logy-[facility] [employer] Work Phone: Complete Blood Count + Differential 0.4 % 0.0 - 0.9 MG-Endocrino logy-[facility] [employer] Work Phone: Comment on above: Immature Granulocyte Count (IG) includes promyelocytes, myelocytes and metamyelocytes but does not include bands. Percent differential counts (%) should be interpreted in the context of the absolute cell counts (cells/L). Complete Blood Count + Differential 0.0 {/100_WBC} 0.0 - 0.0 [facility] [employer] Work Phone: Ferritin, Serumon 06-22-2021 Ferritin [Mass/Vol] 27 ug/L 8 - 150 [facility] Work Phone: Laboratory - Chemistry and C hemistry - challengeon 06-22-2021 Iron [Mass/Vol] 52 ug/dL 35 - 150 MG-Endocr chin [facility] Work Phone: Iron binding capacity [Mass/Vol] 340 ug/dL 240 - 445 [facility] [place] [employer] Work Phone: No Panel Informationon 06-22 15 % below low threshold 25 - 45 [facility] Luis M [employer] Work Phone: T4 - Free Thyroxine, Serumon 05-25-2021 Free T4 [Mass/Vol] 1.28 ng/dL above high threshold See Below -Endocrino [facility] [employer] Work Phone: Comment on above: Reference Range: 0.6 1 - 1.12 Thyroxine Free testing is performed using different testing methodology at [facility] than at other [facility]. Direct result comparisons should only be made within the same method.. Biotin can cause falsely elevated free T4 results. Patients taking a Biotin dose of up to 10 mg/day should refrain from taking Biotin for 24 hours before sample collection. Patient taking a Biotin dose of >10 mg/day should consult with their physician or the laboratory before the blood draw. TSH - Thyroid Stimulating Ho rmone, Serumon 05-25-2021 TSH Qn 0.12 m[IU]/L below low threshold See Below [facility] [employer] Work Phone: Comment on above: Reference Range: 0.4 4 - 3.98 TSH testing is performed using different testing methodology at [facility] than at other [facility]. Direct result comparisons should only be made within the same method. Coding Summary.on 05-06-2021 Coding Summary. [id number] Gh0bWw+ PGhlYWQ+ZF5SKGKxR70zkJGtuD8 MH8gQSN2GBGHNHAQVYA9MVW6bkK Y5PWnsY3NsgtCu LrlwqCAoMZ78MLk3IKB5aJguAVn zpS5asUXkZ3e0YkByKD57sS99LJ pfDWThBoP7NkJabeekpMLl N6rrErYiqBIfZmk+PHRhYmxlIHd eLIMqFFjlHIXdXfGxrLzfVH3rDl 9yZGVyLWNvbGxhcHNlOiBj t0qqBZZdVXkgUF7mdBriT9JgrTZ 9HJCtk8t1Xf33tJH+VZBaQKD8xQ adGQgud138RhOgi6uwTIC1 pVEyXQatAGL1R85ti6T1TBAcWZX mVAQ0qOS9rL6vyLwyieqvV4CsxK QfPkG7WXD7kCHipE4frXxt cbxgcZ8zLww+O51ZIY3RZJSXRL5 EAzy4K6OsLnxqvRT+SV85JMQsHJ 08yBOaeLBub8grgCw4KsLt WERkTTZ4oNjoSEpsd6RlEKQuJ07 xtTMqr1D8CMAsuPhigJDvRzQfaS X6aX2zUKnjmnnyx1cclkkk Pmjff3kjyx46dR93E20wRZklTXR nXJF7UDJhGZFvcJjuln5iwB7lJh 8+SGsiz9fyy4crwFz3AiGx YMWbufHqrItyRJG7q2IhGi52M8B hiNiut6CzHbs4qd77lHAjd1U8oN V8XChhYFOdlU5vEOhxJcJ8 CGAzYzLgmX69kPHeSHiyBi3exYi udOmvMK6nNAWsuzigVNZiwT4eCN LghXIpaKheNW1zRAGzxibp n903SpAlYXM9KJDpzFKfP4TyjY6 cDeTlSONxNSPpI1NtqLPcMGeuY4 16DWxaYfF5VYMmxhXkO0Af WXRbzBsyFfC1d9S5Pj0Ea3Eirru eWBS1ZIhoQXVqUhTzArSyIzY0O0 BtJrk4EHZioHwmJP8zC4Gc WHZufbmyzylzbAN1EKXhTWHseD3 1gBKbZUxbLx7ar0S0y213SOTrFG GswR03Gf5rnGeyVCIysMNO nX5rokmlf7opiskcYuRvUZNrVLb 6ALb2CSHdnStnAtJzWNG5QpF3KH B9gTRjnZ9oePmnamnyhW4c Oyc+Z73vcN4bFPX8RTG8lppkMRB jmpGvTH68TK19Q7WnIlqghCCtzH U+UOFqupQqqEzhET1eMwXx t8jey3BgGSwqH6LgIDLkSRunPmi 4EHFyEYK4zLC6nZ3uOUSfVQhdi9 E4xBW0N2EwwkPutl9cd7gh LGKaJIlbZ47guADjl6Q4IVMimVN 1SVQrkAbbNeGvzW95Bhh+PGNvbG xre3IiJalxs7bnq7wbuMv4 GeAuTEYwacEhoQvjOER8z7TtUg3 7T78rKDpmRUHgHWBrYACaKAKwnJ ljda4ixH3nKr8+PGNvbCB3 jDD2lZ4uJNEuXfX0ILymU913WcU hjASkExvyf9kob2schZv8AvEwAX HpdmNakGgtTYG0w6EuWu54 U09tPHjfKTOuDUGmZDLeQYAhbWr bjs2omS6pBj8+AI4qe0dwaf58jU 48dHI+DOYlERI9hOkxVRrc XTKqvR1mCMcaRfS4OMZqIyZsiQ5 0fSEyXOooQr5ivKmvfBhwXB8oIR Wqyuauh407FaAla3ptNXFl gMRcEFjmTSN8R86kt9O3IDZvXNW rBDN4bCY9kS5qoRbhxpdvcJGbrT pictExmHvlLIebTRksG930 IHRvcDsnPlBhdGllbnQgTmFtZTo 1P9RcEop2WZUdlLlmHL5ltEHnYH kpXd0abZsycLyvZY8gPEKb bozox897AzSpg4xfAYCnwKQpFFg dEFE8P69sa4U7MZXtVJQoKCA3pN T9mV3wdAngitagvUUibEdy yaIgbNuxHLclESccY304OGStiMs dBiSivrVkPUQsrDM0SD07ET57kE Luh5Q2wQB9O5NiJFXeuhjp eoqofOX7GOEhIGNixP42Zh0nqEn nDa5xWOYuGVW0JLVgaMQqH8AeoL 1fJoTpNZHgUKEmH1UukYAj HCbxA587KGszDpC4HJDainLdS4X hRNOjbLaiEqS7l9E1Ts5NC2X1RV 41GE90aMTau1V1dSQ4X1Dc FAAoummvzuxnrJP0MUEdEXInxM9 8Sd4drWxrGh4nEAHaWIH4WWKvjL ObZ2CluS7oMfZaXXMyABWo Y1YujTUdKOclT326EDfyGqD8JMA gphJlW8TiLIUqkVjaZbL8z0H9Wy 6IHWc9JE45XJ06dIFzu2Z1 cOP7J0GeSBXcoyvuezzupON6LSD sEVNshM60Sb0hmHfpEm8qRDNqAQ C1IRYgsJJkT0PxpG1uPuOx ESFmABFyI6GuhSGrIXyvC875KEf cPnS0TAMlehUjS2DlAMRxdVyqAt Y8u9G6Xu8AUVCoPV39HWX2 lAS7JR07ZG11I3EvGtufmOKvqKK +PHRhYmxlIHdpZHRoPScxMDAlJy NkiIwiDE3cHm4dRXGcBWNg sPxesDVjCpLxk4oxXQRkFUrlMK4 ctXxrX9DxeXB6QCYny1f9Hn16T7 1eY7KxdJK+YJRwmIX6tSN0 uL5rFsIlLpN6LGguM908XjNpjIA pCgrir5ixj5tgjOq3XlW6KPCkrx HcxIuaAFF6j9OpVc98V79o IHdpZHRoPSIxNSUiIHZhbGlnbj0 lxV8dCi4+PCHctTU6mOI3qK7mWr EiSsY6NEdjG179MqHihCEb Fttqt7fky8rleNx9RkVlIASslfA ahLsyHPB9w6SoLz37N4PfxIdyq9 KoKcg0ob82gDJso2S9qQX5 C1YnHMHgbzynpJMkuNulGV5rDNF lxixeQGPmkV8yBUXnP9r3DuIvFy K7PTsbQ9WqlgH7PDOmbOFi RGdgMVG2T36ec4B8CXMpOZJxERH 5aKR9yO3leLcgbzkolZVkqLxzwq VzbKazDZgoJZyrR459ZIIc vZejBFFzxA3fEYXamMRrvVbaQS3 xNOCkxvkqWadCRV2EY09hZPdFZh 6JDxCTHWL1V1EhYtd9LZVw hFqcMI4zeAPbSTbnHh9btBfbjSk cYU6nBRPpmlumHUHgqL1fVDXbjH TfjYbsND0zMTGzslthi089 IlPnFLU3IJPfoHJeT8OvkW4rHuV gXDDdMMNcC0JuqNBqFKxvW536UP kpZvY4MKQpyrLbM6MoJHRj nHndNcR8i6K6Hi3gNB1uGu5dSKq aNV76IO17lJTxs9W7dCA1U2HcCF RfryxgkastoKB3YQMxJEKg xH73jKUuARfvJx5qt4N1c233HFZ sRKMvkF62Aw3zdCbdIQQfyNHXiD 9drqoek9alvlynNxEkPAXl RTf3OAj6WQGriGcyZiEjKMP2FdD 4HXG7hEPugC5erWseuiqqgZ8hUy c+HpSaVFZopsM3V0SqXec1 GUNueQcoKO8ehJFeUPzeBt8zaUp mvMaqTP4oFZDskgnoTQRfnZ2sXA AklTAxtMvjKY1fPHIydkbe g866LaClEFA6IRAorJHjB8OxtJ7 iStSuKUKqBFSnO9IcfZSvNOlhX8 18SXrtGzR9VIBxstGkE4Ob VXMptYytLgK7c8O7Wp7FPF9akRP 3K6AtSqy6GFXuaUjnLU1riMRkPU utJd7grCchsTwzKC5xNALl frwhJBUbqR2rIXBeaCPjbFxcNV9 dLTUgixbxr428BlObNCF6MVOuaL UlM5JjyW9cMiEvDQNqTCXk R9ZyuHBpZDyfZ289ZJazEbK1IZJ cjdOaO1TuQAJxdDzoOwH8n9Z3De 0NpKAoUZBfXP54BU02TK05 N5YlMcgveDAgfYK+PHRhYmxlIHd nZBStJOyyETXuLnZsjFkfPP3tSu 9yZGVyLWNvbGxhcHNlOiBj v2nqNKUrYCjkRT7rgDmuC0KvsUG 1USSxl4i1Fe10O82mX6RpuXQ+PG KjbNN5cEJ4rK3eOkLwZaN7 BTpdS314TwBflFFiMvbus4ojy1i nmVv3ObLpJRSqotObiTguCOA8f7 BsQa31O40nOWdtXHEhIMPz IIVaTGWvaXurgb4bkO0nDn8+PGN bqVC2aTQ1qL7dAgLcHhH0UDozL0 07DwXrhBLfOfbsW45jP6Vs dXA+DJXyIjz9UFCatTzpQQ6hzNC fHKrkIe0iNMX0HeJpYjJqWKihD2 YeRMRqfeayksteqRL7LRFn EKBnsX40Oi6bzOunDc8nLRUjPBA 9STMoeWGzO3RiaY1mAhYhBVAmXB IvT3JskNCaTXckC981VDsk WgL8KYBjtxGxM9YfXHGcyYhyUlO 2z1H3Ji9CaLgoeIZlZK6aVrGeUI o8K5AmWwp3WCIjfMhmBB4j eTVhVGgoNf6oyElffZspEC6dWGM uefbhz260BjLzy8ekCVYfiOAzPR ssLPI8T16xx2Z0FIXzDEFe ZDC1wZO0vA4zkAatrqvkqEPjaXt jnxKacCsgLClbKDffK509YMDjcN ujUxNAVol9H8CgNxn3NJRm sWxiTH6euEJjNZxdPy1wpWkcaJf qYM6wZYVghsfur859ZiUvh3fvSD FnuKVcYChuKNR6Y43wv2W8 NOJhCMQhSAT0rQY7mK6rrAaaiyo gbGVmdDsgdmVydGljYWwtYWxpZ2 36IUOpmPrgYw4HFxo7S5Tc Giz3LLNkkHasDO7agFCsVDgcFb3 jrAjsiNppNS6wKNWjncsxr269Ty Owf6rvFPHbfDVnNXijPKY1 E49rn6E6BQKfQLEpOTA6hYJ5oQ5 hbGlnbjogbGVmdDsgdmVydGljYW obOQnyA394AFVmiDpfGoNb eWVyOjwvdGQ+YA85gr50K5UaEda tOsz2LCCxNOM7bLR1gA1oKVZpXR rik2F5fDQ5Y9CojeUphm7f b2xs (more content not included)... Normal [facility] T3 - Free Triiodothyronine, Serumon 04-24-2021 Free T3 [Mass/Vol] 2.6 pg/mL 2.3 - 4.2 MG-End ocrino logy-[facility] Luis M [address] Work Phone: T4 - Free Thyroxine, Serumon 04-24-2021 Free T4 [Mass/Vol] 1.42 ng/dL See Below MG-End ocrino [facility] [employer] [address] Work Phone: Comment on above: Reference Range: 0.7 8 - 1.48 Thyroxine Free testing is performed using different testing methodology at [facility] than at other [facility]. Direct result comparisons should only be made within the same method. TSH - Thyroid Stimulating Ho rmone, Serumon 04-24-2021 TSH Qn 3.88 m[IU]/L See Below MG-Endocrino [facility] [employer] [address] Work Phone: Comment on above: Reference Range: 0.4 4 - 3.98 TSH testing is performed using different testing methodology at [facility] than at other [facility]. Direct result comparisons should only be made within the same method. Tobacco Screening.on Fall risk assessment a) No falls within the last year [facility] [employer] [address] Work Phone: Tobacco use status CPHS c) Screening not indicated MG-Ms d[facility]- [employer] [address] Work Phone: BUNon 04-15-2021 Urea nitrogen [Mass/Vol] 6 mg/dL Normal 10-05 [facility] Comment on above: Performed By: #### 2 [id number] #### [facility] [address] [place] [address] Consent for Treatmenton 03-19 Consent for Treatment [id number]:127 Normal [facility] Creat Clearon 04-15-2021 Creatinine renal clearance/1.73 sq M (24H U+S/P) [Vol rate/Area] 156 mL/min High 75-115 [facility] Comment on above: Performed By: #### 2 [id number], [id number], [id number] #### [facility] [address] [place] [address] Creatine (U) [Moles/Vol] 93.7 mg/dL Normal >=10.0 [facility] Comment on above: Performed By: #### 2 [id number], [id number], [id number], [id number] #### [facility] [address] [place] [address] Creatinineon 04-15-2021 Creatinine [Mass/Vol] 0.7 mg/dL Normal 0.5-1.3 [facility] Comment on above: Performed By: #### 2 [id number], [id number], [id number], [id number] #### [facility] [address] [place] [address] Physician Orderon 04-15-2021 Physician Order [id number]:127 Normal [facility] U24 Proteinon 04-15-2021 Protein (24H U) [Mass/Vol] Unable to calc Invalid Interpretation Code 28-141 [facility] Comment on above: Performed By: #### 1 [id number], [id number] #### [facility] [address] [place] [address] Albumin Elph (U) [Mass fraction] <6.0 Invalid Interpretation Code [facility] Comment on above: Result Comment: The reference range and other method performance specifications have not been established for this test; results should be integrated into the clinical context for interpretation. Performed By: #### 1 [id number], [id number] #### [facility] [address] [place] [address] U24 Total Volon 04-15-2021 Hrs Efrain 24 hour(s) Invalid Interpretation Code [facility] Comment on above: Order Comment: Order added by Discern Expert Performed By: #### 1 [id number], [id number] #### [facility] [address] [place] [address] Specimen volume Unsp time (U) 1675 mL Invalid Interpretation Code [facility] Comment on above: Order Comment: Order added by Discern Expert Performed By: #### 1 [id number], [id number] #### [facility] [address] [place] [address] Hrs Efrain 24 hour(s) Invalid Interpretation Code [facility] Comment on above: Order Comment: Order added by Discern Expert Performed By: #### 2 [id number], [id number], [id number], [id number] #### [facility] [address] [place] [address] Specimen volume Unsp time (U) 1675 mL Invalid Interpretation Code [facility] Comment on above: Order Comment: Order added by Discern Expert Performed By: #### 2 [id number], [id number], [id number], [id number] #### [facility] [address] [place] [address] eGFRon 04-15-2021 eGFR AA >60 Normal >=59 [facility] Comment on above: Order Comment: Order added by Discern Expert. Result Comment: eGFR is race adjusted. AA=. Performed By: #### 2 [id number], [id number], [id number], [id number] #### [facility] [address] [place] [address] GFR/1.73 sq M.predicted among non-blacks MDRD (S/P/Bld) [Vol rate/Area] mL/min/{1.73_m2} Normal >=59 [facility] Comment on above: Order Comment: Order added by Discern Expert. Result Comment: Senior Pharmacy Technician caitlin kidney disease could be indicated at eGFR's of less than 60 mL/min/1.73m2. Kidney failure is indicated at less than 15 mL/min/1.73m2. Performed By: #### 2 [id number], [id number], [id number], [id number] #### [facility] [address] [place] [address] Lupus Anticoagulanton 2020 Anticardiolipin IgM 5.2 MPL Normal 0.0-10.0 [facility] Comment on above: Result Comment: Reference Range: <10.0 Negative 10.0-40.0 Equivocal >40.0 Positive Performed By: #### H OCYS, FT4, TSH, CMIS, AT3A, PROCAC, PROSAC, LUPPRO #### [facility] [address] [place], [place] [id number] Plate Embosser: Steven West MD #### APROTS, APROTC, AAT3AG, AMTHFR, AF5MUT, APTMUT #### [facility] [address] [place], [place] [id number] Plate Embosser: Enrique Rivera MD Factor V Mutationon 04-02-20 21 F 5 SPECIMEN Whole Blood Normal [facility] Comment on above: Performed By: #### H OCYS, FT4, TSH, CMIS, AT3A, PROCAC, PROSAC, LUPPRO #### [facility] [place], [place] [id number] Plate Embosser: Steven West MD #### APROTS, APROTC, AAT3AG, AMTHFR, AF5MUT, APTMUT #### [facility] [address] [place], [place] [id number] Plate Embosser: Enrique Rivera MD FACTOR 5 MUTATION Negative Normal [facility] Comment on above: Result Comment: (NOT E) Indication for testing: Assess genetic risk for thrombosis. NEGATIVE: The factor V Leiden variant, c.1601G>A; [id number], was not detected. This does not exclude a genetic cause for thrombophilia. If this individual has had a previous venous thromboembolism, this negative result is unlikely to significantly reduce the risk for recurrence; thus, future clinical management to reduce recurrence should not be altered. This result has been reviewed and approved by Massiel Ridley M.D., Ph.D. BACKGROUND INFORMATION: Factor V Leiden (F5) R506Q Mutation CHARACTERISTICS: Venous thromboembolism (VTE) is multifactorial caused by a combination of genetic and environmental factors. The Factor V Leiden (FVL) variant is the most common cause of inherited VTEs, accounting for over 90 percent of activated protein C (APC) resistance. Because the FVL variant eliminates the APC cleavage site, factor V is inactivated slower, thus persisting longer in blood circulation, leading to more thrombin production. Other genetic risk factors for VTE include, male sex and variants in antithrombin, protein C, protein S, or factor XIII. Non-genetic risk factors include, age, smoking, prolonged immobilization, malignant neoplasms, surgery, , oral contraceptives, estrogen replacement therapy, tamoxifen and raloxifene therapy. INCIDENCE OF FACTOR V LEIDEN VARIANT: Approximately 5 percent of Caucasians, 2 percent of Hispanics, 1 percent of Americans and 0.5 percent of Asians are heterozygous; homozygosity occurs in 1 in 1500 Caucasians. INHERITANCE: Semi-dominant; both heterozygotes and homozygotes are at increased risk for VTE. PENETRANCE: Lifetime risk of VTE is 10 percent for heterozygotes and 80 percent of homozygotes. CAUSE: The pathogenic gain of function in the F5 gene variant c.1601G>A ([id number]). Legacy nomenclature: [id number] (1691G>A) CLINICAL SENSITIVITY: 20-50 percent of individuals with an isolated VTE have the FVL variant. METHODOLOGY: Polymerase chain reaction and fluorescence monitoring. ANALYTICAL SENSITIVITY AND SPECIFICITY: 99 percent. LIMITATIONS: Diagnostic errors can occur due to rare sequence variations. F5 gene mutations, other than p.[id number], will not be detected. This test was developed and its performance characteristics determined by [facility]. It has not been cleared or approved by the [place] Food and Drug Administration. This test was performed in a CLIA certified laboratory and is intended for clinical purposes. Counseling and informed consent are recommended for genetic testing. Consent forms are available online. Performed by [facility], [address] [place] [address] [id number] [email or web address], Angela Collazo MD, Lab. Director Performed By: #### H OCYS, FT4, TSH, CMIS, AT3A, PROCAC, PROSAC, LUPPRO #### [facility] [address] [address] Plate Embosser: Steven West MD #### APROTS, APROTC, AAT3AG, AMTHFR, AF5MUT, APTMUT #### [facility] [address] [place] [id number] Plate Embosser: Enrique Rivera MD PT Mutation [id number] 04-02-20 21 PT [id number] VARIANT Negative Normal [facility] Comment on above: Result Comment: (NOT E) Indication for testing: Assess genetic risk for thrombosis. NEGATIVE: The Factor II, prothrombin [id number] mutation, was not detected. Other causes of elevated prothrombin levels and hereditary forms of venous thrombosis have not been excluded. Recommendations: If clinically indicated, testing for other inherited or acquired thrombophilic disorders is recommended including DNA testing for the factor V Leiden mutation, measurement of total plasma homocysteine concentration, serological assays for anticardiolipin antibodies, multiple phospholipid-dependent coagulation assays for lupus inhibitor, protein C activity, protein S activity or free protein S antigen, and antithrombin activity. This result has been reviewed and approved by Massiel Ridley M.D., Ph.D. 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 The expression of Factor II thrombophilia is impacted by coexisting genetic thrombophilic disorders, acquired thrombophilic disorders (eg, malignancy, hyperhomocysteinemia, high factor VIII levels), and circumstances including: , oral contraceptive use, hormone replacement therapy, selective estrogen receptor modulators, travel, central venous catheters, surgery, and organ transplantation. INCIDENCE: Approximately 2 percent of Caucasians and 0.3 percent of Americans are heterozygous; homozygosity occurs in 1 in 10,000 individuals. INHERITANCE: Incomplete autosomal dominant. PENETRANCE: The risk of thrombosis is increased 2-4 fold for heterozygotes and further increased for homozygotes. CAUSE: Homozygosity or heterozygosity for F2 c.*97G>A ([id number]). PATHOGENIC VARIANT TESTED: F2 c.*97G>A (S38343K). CLINICAL SENSITIVITY FOR VENOUS THROMBOSIS: Approximately 10 percent. METHODOLOGY: Polymerase chain reaction and fluorescence monitoring. ANALYTICAL SENSITIVITY AND SPECIFICITY: 99 percent. LIMITATIONS: Diagnostic errors can occur due to rare sequence variations. F2 gene variants, other than c.*97G>A (J73442L), will not be detected. This test was developed and its performance characteristics determined by [facility]. It has not been cleared or approved by the [place] Food and Drug Administration. This test was performed in a CLIA certified laboratory and is intended for clinical purposes. Counseling and informed consent are recommended for genetic testing. Consent forms are available online. Performed by [facility], [address] [place] [address] [id number] [email or web address], Angela Collazo MD, Lab. Director Performed By: #### H OCYS, FT4, TSH, CMIS, AT3A, PROCAC, PROSAC, LUPPRO #### [address] [id number] Plate Embosser: Steven West MD #### APROTS, APROTC, AAT3AG, AMTHFR, AF5MUT, APTMUT #### [address] [phone] Plate Embosser: Enrique Rivera MD PT PCR SPECIMEN Whole Blood Normal [facility] Comment on above: Performed By: #### H OCYS, FT4, TSH, CMIS, AT3A, PROCAC, PROSAC, LUPPRO #### [address] [address] Plate Embosser: Steven West MD #### APROTS, APROTC, AAT3AG, AMTHFR, AF5MUT, APTMUT #### [address] [phone] Plate Embosser: Enrique Rivera MD Antithrombin III Pelkie 04-01 Antithrombin III Act 103 % Normal 83-122 [facility] Comment on above: Result Comment: Patients receiving Hirudin may have a falsely decreased Antitrombin III Activity. Performed By: #### H OCYS, FT4, TSH, CMIS, AT3A, PROCAC, PROSAC, LUPPRO #### [address] [address] Plate Embosser: Steven West MD #### APROTS, APROTC, AAT3AG, AMTHFR, AF5MUT, APTMUT #### [facility] [address] [place] [address] Plate Embosser: Enrique Rivera MD Lupus Anticoagulanton 2020 Dilute Vicente Viper Negative Normal [facility] Comment on above: Performed By: #### H OCYS, FT4, TSH, CMIS, AT3A, PROCAC, PROSAC, LUPPRO #### [facility] [address] [place] [address] Plate Embosser: Steven West MD #### APROTS, APROTC, AAT3AG, AMTHFR, AF5MUT, APTMUT #### [facility] [address], [place] [id number] Plate Embosser: Enrique Rivera MD MTHFR Gene Mutationon 2020 MTHFR 1286 A>C Mut Negative Normal [facility] Comment on above: Performed By: #### H OCYS, FT4, TSH, CMIS, AT3A, PROCAC, PROSAC, LUPPRO #### [address] [address] Plate Embosser: Steven West MD #### APROTS, APROTC, AAT3AG, AMTHFR, AF5MUT, APTMUT #### [facility] [address], [place] [id number] Plate Embosser: Enrique Rivera MD MTHFR 655C>T Mut Negative [facility] Comment on above: Performed By: #### H OCYS, FT4, TSH, CMIS, AT3A, PROCAC, PROSAC, LUPPRO #### [facility] [address] [place] [address] Plate Embosser: Steven West MD #### APROTS, APROTC, AAT3AG, AMTHFR, AF5MUT, APTMUT #### [facility] [address] [place] [address] Plate Embosser: Enrique Rivera MD MTHFR Interpretation See Note Normal [facility] Comment on above: Result Comment: (NOT E) Indication for testing: Determine genetic contribution to hyperhomocysteinemia. Negative: Neither of the common MTHFR gene variants tested, c.665C>T (previously designated C677T) and c.1286A>C (previously designated C6803J), were detected. Other causes of elevated homocysteine levels were not evaluated. This result has been reviewed and approved by Massiel Ridley M.D., Ph.D. Background Information: Methylenetetrahydrofolate Reductase (MTHFR) 2 Variants Characteristics: Variants in the MTHFR gene may reduce enzyme activity contributing to hyperhomocysteinemia. Although hyperhomocysteinemia was previously reported to be a risk factor for many conditions, especially venous thrombosis and cardiovascular disease, recent meta-analysis casts doubt on whether lifelong moderate homocysteine elevation has an effect on cardiovascular disease. The [employer] Practice Guidelines indicate that individuals with elevated homocysteine and two copies of the c.665C>T variant have an odds ratio of 1.27 for venous thromboembolism. Thus, they recommend MTHFR genotyping not be ordered as part of a routine evaluation for recurrent loss or thromobophilia due to questionable clinical significance. Incidence: The allele frequency of the c.665C>T variant is 0.35 in Caucasians, 0.5 in Hispanics, and 0.12 in Americans. Inheritance: Autosomal recessive; two copies of the c.665C>T variant may be a contributing factor to hyperhomocysteinemia. Variants Tested: c.665C>T(p.[id number]) and c.1286A>C(p.Ncz061Wmv). (legacy names C677T and F0576B, respectively). Clinical Sensitivity: Undefined; hyperhomocysteinemia is caused by genetic, physiologic and environmental factors. MTHFR variants are only one contributing factor. Methodology: Polymerase chain reaction (PCR) and fluorescence monitoring. Analytical Sensitivity AND Specificity: 99 percent. Limitations: Only two MTHFR gene variants (c.665C>T and c.1286A>C) are tested. Diagnostic errors can occur due to rare sequence variations. This test was developed and its performance characteristics determined by [facility]. It has not been cleared or approved by the [place] Food and Drug Administration. This test was performed in a CLIA certified laboratory and is intended for clinical purposes. Counseling and informed consent are recommended for genetic testing. Consent forms are available online. Performed by [facility], [address] [facility] [place] [address] [email or web address], Angela Collazo MD, Lab. Director Performed By: #### H OCYS, FT4, TSH, CMIS, AT3A, PROCAC, PROSAC, LUPPRO #### [address] [phone] Plate Embosser: Steven West MD #### APROTS, APROTC, AAT3AG, AMTHFR, AF5MUT, APTMUT #### [facility] [address], [place] [phone] Plate Embosser: Enrique Rivera MD MTHFR SPECIMEN Whole Blood Normal [facility] Comment on above: Performed By: #### H OCYS, FT4, TSH, CMIS, AT3A, PROCAC, PROSAC, LUPPRO #### [address] [id number] Plate Embosser: Steven West MD #### APROTS, APROTC, AAT3AG, AMTHFR, AF5MUT, APTMUT #### [facility] [address] [address] Plate Embosser: Enrique Rivera MD Protein C Activityon 11-15-2 021 Protein C Activity >150 Normal >80 [facility] Comment on above: Result Comment: Patients on warfarin will have decreased functional protein C/S values. Warfarin therapy should be discontinued for two weeks for accurate measurement of functional protein C/S levels. Artifactually elevated levels of functional protein C/S may be seen in patients receiving heparin,rivaroxaban,apixaban,edozaban,and dabiqatran. Decreased functionality may be seen in patients with abnormally elevated levels of Factor VIII. Performed By: #### H OCYS, FT4, TSH, CMIS, AT3A, PROCAC, PROSAC, LUPPRO #### [address] [id number] Plate Embosser: Steven West MD #### APROTS, APROTC, AAT3AG, AMTHFR, AF5MUT, APTMUT #### [facility] [address] [place] [address] Plate Embosser: Enrique Rivera MD Protein S Activityon 021 Protein S Activity 60 % Normal 59-130 [facility] Comment on above: Result Comment: Patients on warfarin will have decreased functional protein C/S values. Warfarin therapy should be discontinued for two weeks for accurate measurement of functional protein C/S levels. Artifactually elevated levels of functional protein C/S may be seen in patients receiving heparin,rivaroxaban,apixaban,edozaban,and dabiqatran. Decreased functionality may be seen in patients with abnormally elevated levels of Factor VIII. Performed By: #### H OCYS, FT4, TSH, CMIS, AT3A, PROCAC, PROSAC, LUPPRO #### [facility] [address] [address] Plate Embosser: Steven West MD #### APROTS, APROTC, AAT3AG, AMTHFR, AF5MUT, APTMUT #### [facility] [address] [place] [address] Plate Embosser: Enrique Rivera MD Anti-thrombin 3 Agon 03-31- 021 Anti-thrombin 3 Ag 83 % Normal 82-136 [facility] Comment on above: Result Comment: (NOT E) REFERENCE INTERVAL: Antithrombin Antigen Access complete set of age- and/or gender-specific reference intervals for this test in the [facility] (MyLife). Performed by [facility], [address] [place] [address] [id number] [email or web address], Angela Collazo MD, Lab. Director Performed By: #### H OCYS, FT4, TSH, CMIS, AT3A, PROCAC, PROSAC, LUPPRO #### [facility] [address] [place] [address] Plate Embosser: Steven West MD #### APROTS, APROTC, AAT3AG, AMTHFR, AF5MUT, APTMUT #### [facility] [address] [place] [address] Plate Embosser: Enrique Rivera MD Protein C Antigenicon 2020 Protein C Antigenic 86 % Normal 63-153 [facility] Comment on above: Result Comment: (NOT E) INTERPRETIVE INFORMATION: Protein C, Total Antigen Patients on warfarin may have decreased protein C values. Patients should be off warfarin therapy for two weeks for accurate measurement of protein C. Access complete set of age- and/or gender-specific reference intervals for this test in the [facility] (My[facility]). Performed by [facility], [address] [place] [address] [phone] [email or web address], Angela Collazo MD, Lab. Director Performed By: #### H OCYS, FT4, TSH, CMIS, AT3A, PROCAC, PROSAC, LUPPRO #### [facility] [address] [place] [address] Plate Embosser: Steven West MD #### APROTS, APROTC, AAT3AG, AMTHFR, AF5MUT, APTMUT #### [facility] [address] [place] [address] [phone] Plate Embosser: Enrique Rivera MD Protein S, Antigenicon 03-31 Protein S, Antigenic 107 % Normal 63-126 [facility] Comment on above: Result Comment: (NOT E) INTERPRETIVE INFORMATION: Protein S, Total Antigen Patients on warfarin may have decreased protein S values. Patients should be off warfarin therapy for two weeks for accurate measurement of protein S. Access complete set of age- and/or gender-specific reference intervals for this test in the [facility] (MyLife). Performed by [facility], [address] [place] [address] [phone] [email or web address], Angela Collazo MD, Lab. Director Performed By: #### H OCYS, FT4, TSH, CMIS, AT3A, PROCAC, PROSAC, LUPPRO #### [facility] [address] [place] [address] Plate Embosser: Steven West MD #### APROTS, APROTC, AAT3AG, AMTHFR, AF5MUT, APTMUT #### [facility] [address] [place] [address] Plate Embosser: Enrique Rivera MD Lupus Anticoagulanton 2020 Anticardiolipin IgA 1.1 APL Normal 0.0-14.0 [facility] Comment on above: Result Comment: Reference Range: <14.0 Negative 14.0-20.0 Equivocal >20.0 Positive When results are Equivocal, it is recommended to retest after 4-6 weeks. Performed By: #### H OCYS, FT4, TSH, CMIS, AT3A, PROCAC, PROSAC, LUPPRO #### [facility] [address] [place] [address] [phone] Plate Embosser: Steven West MD #### APROTS, APROTC, AAT3AG, AMTHFR, AF5MUT, APTMUT #### [facility] [address] [place] [address] Plate Embosser: Enrique Rivera MD Anticardiolipin IgG 2.0 GPL Normal 0.0-10.0 [facility] Comment on above: Result Comment: Reference Range: <10.0 Negative 10.0-40.0 Equivocal >40.0 Positive Performed By: #### H OCYS, FT4, TSH, CMIS, AT3A, PROCAC, PROSAC, LUPPRO #### [facility] [address] [place] [address] [phone] Plate Embosser: Steven West MD #### APROTS, APROTC, AAT3AG, AMTHFR, AF5MUT, APTMUT #### [facility] [address] [place] [address] Plate Embosser: Enrique Rivera MD Miscellaneouson 03-28-2021 Send Out Report [facility] TO [facility] [phone] Normal [facility] Comment on above: Performed By: #### H OCYS, FT4, TSH, CMIS, AT3A, PROCAC, PROSAC, LUPPRO #### [facility] [address] [place] [address] [phone] Plate Embosser: Steven West MD #### APROTS, APROTC, AAT3AG, AMTHFR, AF5MUT, APTMUT #### [facility] [address], [place] [phone] Plate Embosser: Enrique Rivera MD Homocysteineon 03-27-2021 Homocysteine 8.2 umol/L Normal <15.0 [facility] Comment on above: Performed By: #### H OCYS, FT4, TSH, CMIS, AT3A, PROCAC, PROSAC, LUPPRO #### [facility] [address] [place] [address] [phone] Plate Embosser: Steven West MD #### APROTS, APROTC, AAT3AG, AMTHFR, AF5MUT, APTMUT #### [facility] [address] [place] [address] Plate Embosser: Enrique Rivera MD Lupus Anticoagulanton 2020 aPTT Coag (Bld) [Time] 27.0 s Normal 20.5-30.5 [facility] Comment on above: Result Comment: IV Heparin Therapy Range: 48.6-77.8 Performed By: #### H OCYS, FT4, TSH, CMIS, AT3A, PROCAC, PROSAC, LUPPRO #### [facility] [address] [place] [address] [phone] Plate Embosser: Steven West MD #### APROTS, APROTC, AAT3AG, AMTHFR, AF5MUT, APTMUT #### [facility] [address] [place] [address] Plate Embosser: Enrique Rivera MD INR Coag (PPP) [Relative time] 1.0 {INR} Normal [facility] Comment on above: Result Comment: Therapeutic Range: Moderate Anticoagulant Intensity: INR = 2.0-3.0 High Anticoagulant Intensity: INR = 2.5-3.5 Performed By: #### H OCYS, FT4, TSH, CMIS, AT3A, PROCAC, PROSAC, LUPPRO #### [address] [address] Plate Embosser: Steven West MD #### APROTS, APROTC, AAT3AG, AMTHFR, AF5MUT, APTMUT #### [facility] [address], [place] [phone] Plate Embosser: Enrique Rivera MD PT Coag (PPP) [Time] 10.5 s Normal 9.1-12.3 [facility] Comment on above: Performed By: #### H OCYS, FT4, TSH, CMIS, AT3A, PROCAC, PROSAC, LUPPRO #### [place] [address] Plate Embosser: Steven West MD #### APROTS, APROTC, AAT3AG, AMTHFR, AF5MUT, APTMUT #### [facility] [address], [place] [phone] Plate Embosser: Enrique Rivera MD Lupus Anticoagulant NOT REPORTED Normal [facility] Comment on above: Performed By: #### H OCYS, FT4, TSH, CMIS, AT3A, PROCAC, PROSAC, LUPPRO #### [place] [address] Plate Embosser: Steven West MD #### APROTS, APROTC, AAT3AG, AMTHFR, AF5MUT, APTMUT #### [facility] [address] [place] [address] Plate Embosser: Enrique Rivera MD Miscellaneouson 03-27-2021 Test Name LOLY HORIZON Normal [facility] Comment on above: Performed By: #### H OCYS, FT4, TSH, CMIS, AT3A, PROCAC, PROSAC, LUPPRO #### [facility] [address] [place] [address] Plate Embosser: Steven West MD #### APROTS, APROTC, AAT3AG, AMTHFR, AF5MUT, APTMUT #### [facility] [address], [place] [phone] Plate Embosser: Enriuqe Rivera MD Protein,Tot,Vaughn Uron 2020 Creatinine [Mass/Vol] 141.7 mg/dL Normal 28.0-217.0 [facility] Comment on above: Performed By: #### H OCYS, FT4, TSH, CMIS, AT3A, PROCAC, PROSAC, LUPPRO #### [facility] [address] [place] [address] Plate Embosser: Steven West MD #### APROTS, APROTC, AAT3AG, AMTHFR, AF5MUT, APTMUT #### [facility] [address], [place] [phone] Plate Embosser: Enrique Rivera MD Tot Prot. Conc. 14 mg/dL Normal [facility] Comment on above: Result Comment: No n ormal range established. Performed By: #### H OCYS, FT4, TSH, CMIS, AT3A, PROCAC, PROSAC, LUPPRO #### [address] [address] Plate Embosser: Steven West MD #### APROTS, APROTC, AAT3AG, AMTHFR, AF5MUT, APTMUT #### [facility] [address], [place] [phone] Plate Embosser: Enrique Rivera MD TP/Cre Ratio 0.10 Normal 0.00-0.20 [facility] Comment on above: Performed By: #### H OCYS, FT4, TSH, CMIS, AT3A, PROCAC, PROSAC, LUPPRO #### [facility] [address] [place] [address] [phone] Plate Embosser: Steven West MD #### APROTS, APROTC, AAT3AG, AMTHFR, AF5MUT, APTMUT #### [facility] [address] [place] [address] Plate Embosser: Enrique Rivera MD Thyroid Stim. Horm.on 2020 TSH Qn 9.52 m[IU]/L High 0.30-5.00 [facility] Comment on above: Performed By: #### H OCYS, FT4, TSH, CMIS, AT3A, PROCAC, PROSAC, LUPPRO #### [facility] [address] [place] [address] [phone] Plate Embosser: Steven West MD #### APROTS, APROTC, AAT3AG, AMTHFR, AF5MUT, APTMUT #### [facility] [address] [place] [address] Plate Embosser: Enrique Rivera MD Thyroxine, Freeon 03-27-2021 Thyroxine, Free 1.45 ng/dL Normal 0.93-1.70 [facility] Comment on above: Performed By: #### H OCYS, FT4, TSH, CMIS, AT3A, PROCAC, PROSAC, LUPPRO #### [facility] [address] [place] [address] [phone] Plate Embosser: Steven West MD #### APROTS, APROTC, AAT3AG, AMTHFR, AF5MUT, APTMUT #### [facility] [address] [place] [address] Plate Embosser: Enrique Rivera MD Tobacco Screening.on 021 Fall risk assessment a) No falls within the last year [facility] [employer] Work Phone: Tobacco use status CPHS b) No [facility]Otol[facility]logy-[facility] [employer] Work Phone: Tobacco Screening.on 021 Fall risk assessment a) No falls within the last year [employer] RollerOniel medina [employer] Work Phone: Tobacco use status CP b) No [employer]-Otmusa hardy-Zach medina [employer] Work Phone: T-SPOT. TBon 11-07-2020 T-SPOT. TB Passed [employer]-Oniel medina [employer] Work Phone: T-SPOT. TB 0 1 RICK-Oniel medina [employer] Work Phone: T-SPOT. TB 1 1 NGIOniel hardyQuote RollerZach medina [employer] Work Phone: T-SPOT. TB Negative See Below NGIOniel hardyQuote RollerZach medina [employer] Work Phone: Comment on above: Reference Range: Nor mal Value: NegativeA negative test result does not exclude the possibility of exposure to or infection with Mycobacterium tuberculosis (M. tuberculosis). Patients with recent exposure to TB infected individuals exhibiting a negative T-SPOT.TB result should be considered for retesting within 6 weeks or if other relevant clinical symptoms indicate. Results from T-SPOT.TB testing must be used in conjunction with each individual's epidemiological history, current medical status, and results of other diagnostic evaluations. The T-SPOT.TB test is qualitative and results are reported as positive, borderline or negative, given that the test controls perform as expected. In line with the Centers for Disease Control and Prevention's 2010 recommendation to report quantitative measurements alongside the qualitative result, the laboratory provides spot counts for informational purposes only. The T-SPOT.TB test should not be interpreted as a quantitative test. C Reactive Protein, Serumon 11-03-2020 CRP [Mass/Vol] 0.67 mg/dL [facility] [employer] Work Phone: Comment on above: REF VALUE< 1.00 Folate, Serumon 11-03-2020 Folate [Mass/Vol] 10.8 ng/mL >5.0 [facility] Work Phone: Comment on above: Low <3.4Borderline 3 .4-5.0Normal >5.0. Patients receiving more than 5 mg/day of biotin may have interference in test results. A sample should be taken no sooner than eight hours after previous dose. Contact the testing laboratory for additional information. No Panel Informationon 11-03 <1.7 <1.7 CNS Response [employer] Work Phone: Comment on above: Serum adalimumab (AD A) concentrations of <=5 ug/mL were predictive of elevated CRP levels. Detection of antibodies to adalimumab (MILLER) was associated with elevated CRP, independent of trough serum adalimumab (ADA) levels. Patients with antibodies to adalimumab (MILLER) had a lower median trough serum concentration independently of the time point that MILLER were detected. 92% of patients with detectable MILLER discontinued adalimumab therapy. MILLER was detected in up to 40% of patients losing response to adalimumab treatment. For full report see separate report from [facility]. 11.6 ug/mL Abnormal <1.6 CNS Response [employer] Work Phone: SEE BELOW [place] [facility] Medical[facility] [place] cityQuote [facility]El[facility] [employer] Work Phone: Comment on above: DETECTABLE SERUM ADA LIMUMAB UNDETECTED ANTIBODIES TO ADALIMUMAB Sedimentation Rate, Erythroc yteon 11-03-2020 ESR (Bld) [Velocity] 44 mm/h above high threshold 0 - 20 [facility] Work Phone: Vitamin B12, Serumon 021 Cobalamin (Vitamin B12) [Mass/Vol] 340 pg/mL 211 - 911 [facility] Work Phone: Complete Blood Count + Diffe rentialon 10-09-2020 Basophils/100 WBC (Bld) 0.4 % 0.0 - 2.0 [facility] Work Phone: Erythrocyte distribution width (RBC) [Ratio] 16.4 % above high threshold See Below [employer]AHelper[facility] Work Phone: Comment on above: Reference Range: 11. 5 - 14.5 Hematocrit (Bld) [Volume fraction] 39.1 % See Below [facility] Work Phone: Comment on above: Reference Range: 36. 0 - 46.0 Hemoglobin (Bld) [Mass/Vol] 12.3 g/dL See Below [facility] Work Phone: Comment on above: Reference Range: 12. 0 - 16.0 Lymphocytes/100 WBC (Bld) 28.0 % See Below [facility] Work Phone: Comment on above: Reference Range: 13. 0 - 44.0 MCHC (RBC) [Mass/Vol] 31.5 g/dL below low threshold See Below [facility] Work Phone: Comment on above: Reference Range: 32. 0 - 36.0 MCV (RBC) [Entitic vol] 83 fL 80 - 100 [facility] Work Phone: Monocytes/100 WBC (Bld) 4.2 % 2.0 - 10.0 [facility] Work Phone: Neutrophils/100 WBC (Bld) 66.4 % See Below [facility] Work Phone: Comment on above: Reference Range: 40. 0 - 80.0 Platelets (Bld) [#/Vol] 260 10*3/uL 150 - 450 [facility] Work Phone: RBC (Bld) [#/Vol] 4.73 {x10E12/L} See Below [employer] [facility] Work Phone: Comment on above: Reference Range: 4.0 0 - 5.20 WBC (Bld) [#/Vol] 7.8 10*3/uL 4.4 - 11.3 MP-Uni v [facility] Work Phone: Complete Blood Count + Differential 0.03 {x10E9/L} See Below [facility] Work Phone: Comment on above: Reference Range: 0.0 0 - 0.10 Complete Blood Count + Differential 0.07 {x10E9/L} See Below [facility] Work Phone: Comment on above: Reference Range: 0.0 0 - 0.70 Complete Blood Count + Differential 0.33 {x10E9/L} See Below [facility] Work Phone: Comment on above: Reference Range: 0.1 0 - 1.00 Complete Blood Count + Differential 2.19 {x10E9/L} See Below [facility] Work Phone: Comment on above: Reference Range: 1.2 0 - 4.80 Complete Blood Count + Differential 5.20 {x10E9/L} See Below [facility] Work Phone: Comment on above: Reference Range: 1.2 0 - 7.70 Complete Blood Count + Differential 0.9 % 0.0 - 6.0 [facility] Work Phone: Complete Blood Count + Differential 0.1 % 0.0 - 0.9 [facility] Work Phone: Comment on above: Immature Granulocyte Count (IG) includes promyelocytes, myelocytes and metamyelocytes but does not include bands. Percent differential counts (%) should be interpreted in the context of the absolute cell counts (cells/L). Ferritin, Serumon 10-09-2020 Ferritin [Mass/Vol] 79 ug/L 8 - 150 [facility] iv [facility] Work Phone: Laboratory - Chemistry and C hemistry - challengeon 10-09-2020 Iron [Mass/Vol] 53 ug/dL 35 - 150 [facility] Work Phone: Iron binding capacity [Mass/Vol] 297 ug/dL 240 - 445 [facility] Work Phone: No Panel Informationon 10-09 18 % below low threshold 25 - 45 [facility] Work Phone: Ferritin, Serumon 07-07-2020 Ferritin [Mass/Vol] 11 ug/L 8 - 150 MG-En docrino log-[facility] Luis M 1600 Work Phone: Comment on above: Ordering Provider: Samara RINA IQBAL [id number] Hematologyon 07-07-2020 Hematocrit (Bld) [Volume fraction] 35.6 % below low threshold See Below MG-Endocrino logy-[facility] Luis M 1600 Work Phone: Comment on above: Reference Range: 36. 0 - 46.0 Ordering Provider: Samara FLYNN BALJINDER 40296 Hemoglobin (Bld) [Mass/Vol] 10.6 g/dL below low threshold See Below MG-Endocrino logy-[facility] Luis M 1600 Work Phone: Comment on above: Reference Range: 12. 0 - 16.0 Ordering Provider: Samara RINA IQBAL 28735 MCV (RBC) [Entitic vol] 83 fL 80 - 100 MG-Endocrino [facility] Luis M 1600 Work Phone: Comment on above: Ordering Provider: Samara FLYNN BALJINDER 47531 Platelets (Bld) [#/Vol] 311 {x10E9/L} 150 - 450 MG-Endocrino logy-[facility] [place] 1600 Work Phone: Comment on above: Ordering Provider: Samara FLYNN BALJINDER 91108 RBC (Bld) [#/Vol] 4.29 {x10E12/L} See Below MG -Endocrino logy-[facility] [place] 1600 Work Phone: Comment on above: Reference Range: 4.0 0 - 5.20 Ordering Provider: Samara RINA IQBAL 62135 WBC (Bld) [#/Vol] 7.4 {x10E9/L} 4.4 - 11.3 MG-E ndocrino logy-[facility] Luis M 1600 Work Phone: Comment on above: Ordering Provider: Samara SANTIAGOSELENA 44887 WBC (Bld) [#/Vol] 0.0 {/100_WBC} 0.0 - 0.0 MG- Endocrino logy-[facility] [place] 1600 Work Phone: Comment on above: Ordering Provider: Samara FLYNN BALJINDER 90457 Metabolic Panelon 07-07-2020 Iron [Mass/Vol] 31 ug/dL below low threshold 35 - 150 MG-Endocrino logy-[facility] [place] 1600 Work Phone: Comment on above: Ordering Provider: Samara FLYNN BALJINDER 49277 Otheron 07-07-2020 Erythrocyte distribution width (RBC) [Ratio] 14.7 % above high threshold See Below MG-Endocrino logy-[facility] Luis M 1600 Work Phone: Comment on above: Reference Range: 11. 5 - 14.5 Ordering Provider: Samara FLYNN BALJINDER 56645 Iron binding capacity [Mass/Vol] 343 ug/dL 240 - 445 MG-Endocrino logy-[facility] Luis M 1600 Work Phone: Comment on above: Ordering Provider: Samara SANTIAGOSELENA 91694 MCHC (RBC) [Mass/Vol] 29.8 g/dL below low threshold See Below MG-Endocrino logy-[facility] [place] 1600 Work Phone: Comment on above: Reference Range: 32. 0 - 36.0 Ordering Provider: Samara FLYNN BALJINDER 94124 9 % below low threshold 25 - 45 MG-Endocrino logy-[facility] Luis M 1600 Work Phone: Comment on above: Ordering Provider: Samara SANTIAGOSELENA 90953 Parathormone Intact, Serumon 07-07-2020 Parathyrin.intact [Mass/Vol] 77.2 pg/mL See Below MG-Endocrino logy-[facility] [place] 1600 Work Phone: Comment on above: Reference Range: 12. 0 - 88.0 Renal Function Panelon 07-07 Albumin BCP dye [Mass/Vol] 3.8 g/dL 3.4 - 5.0 MG-Endocrino logy-[facility] Luis M 1600 Work Phone: Anion gap [Moles/Vol] 9 mmol/L below low threshold 10 - 20 MG-Endocrino logy-[facility] Luis M 1600 Work Phone: Calcium [Mass/Vol] 8.6 mg/dL 8.6 - 10.3 MG-End ocrino logy-[facility] [place] 1600 Work Phone: Chloride [Moles/Vol] 105 mmol/L 98 - 107 MG-Endocrino logy-[facility] [place] 1600 Work Phone: CO2 [Moles/Vol] 27 mmol/L 21 - 32 MG-Endocr chin logy-[facility] Luis M 1600 Work Phone: Creatinine [Mass/Vol] 0.90 mg/dL See Below MG-Endocrino logy-[facility] Luis M 1600 Work Phone: Comment on above: Reference Range: 0.5 0 - 1.05 Glucose [Mass/Vol] 85 mg/dL 74 - 99 MG-End ocrino logy-[facility] Luis M 1600 Work Phone: Phosphate [Mass/Vol] 3.5 mg/dL 2.5 - 4.9 MG-Endocrino logy-[facility] [place] [employer] Work Phone: Comment on above: The performance angeline acteristics of phosphorus testing in heparinized plasma have been validated by the individual laboratory site where testing is performed. Testing on heparinized plasma is not approved by the FDA; however, such approval is not necessary. Potassium [Moles/Vol] 3.9 mmol/L 3.5 - 5.3 MG-Endocrino logy-[facility] Luis M 1600 Work Phone: Sodium [Moles/Vol] 137 mmol/L 136 - 145 MG-End ocrino logy-[facility] Luis M 1600 Work Phone: Urea nitrogen [Mass/Vol] 12 mg/dL 6 - 23 MG-Endocrino logy-[facility] [place] 1600 Work Phone: Renal Function Panel >60 >60 [facility] Work Phone: Comment on above: CALCULATIONS OF MITCH MATED GFR ARE PERFORMED USING THE MDRD STUDY EQUATION FOR THE IDMS-TRACEABLE CREATININE METHODS. CLIN CHEM 2007;53:766-72 T4 - Free Thyroxine, Serumon 07-07-2020 Free T4 [Mass/Vol] 1.10 ng/dL See Below MG-End In[employer] [facility] [employer] Work Phone: Comment on above: Reference Range: 0.6 1 - 1.12 Thyroxine Free testing is performed using different testing methodology at [facility] than at other [facility]. Direct result comparisons should only be made within the same method.. Biotin can cause falsely elevated free T4 results. Patients taking a Biotin dose of up to 10 mg/day should refrain from taking Biotin for 24 hours before sample collection. Patient taking a Biotin dose of >10 mg/day should consult with their physician or the laboratory before the blood draw. TSH - Thyroid Stimulating Ho rmone, Serumon 07-07-2020 TSH Qn 2.20 {mIU/L} See Below [facility] [employer] Work Phone: Comment on above: Reference Range: 0.4 4 - 3.98 TSH testing is performed using different testing methodology at [facility] than at other [facility]. Direct result comparisons should only be made within the same method. T4 - Free Thyroxine, Serumon 03-31-2020 Free T4 [Mass/Vol] 1.04 ng/dL See Below MG-End [facility] [facility] [employer] Work Phone: Comment on above: Reference Range: 0.6 1 - 1.12 Thyroxine Free testing is performed using different testing methodology at [facility] than at other [facility]. Direct result comparisons should only be made within the same method.. Biotin can cause falsely elevated free T4 results. Patients taking a Biotin dose of up to 10 mg/day should refrain from taking Biotin for 24 hours before sample collection. Patient taking a Biotin dose of >10 mg/day should consult with their physician or the laboratory before the blood draw. TSH - Thyroid Stimulating Ho rmone, Serumon 03-31-2020 TSH Qn 2.70 {mIU/L} See Below [employer] Work Phone: Comment on above: Reference Range: 0.4 4 - 3.98 TSH testing is performed using different testing methodology at [facility] than at other [facility]. Direct result comparisons should only be made within the same method. T4 - Free Thyroxine, Serumon 03-10-2020 Free T4 [Mass/Vol] 0.96 ng/dL See Below -End ocrino [employer] Work Phone: Comment on above: Reference Range: 0.6 1 - 1.12 Thyroxine Free testing is performed using different testing methodology at [facility] than at other [facility] hospitals. Direct result comparisons should only be made within the same method.. Biotin can cause falsely elevated free T4 results. Patients taking a Biotin dose of up to 10 mg/day should refrain from taking Biotin for 24 hours before sample collection. Patient taking a Biotin dose of >10 mg/day should consult with their physician or the laboratory before the blood draw. TSH - Thyroid Stimulating Ho rmone, Serumon 03-10-2020 TSH Qn 6.27 {mIU/L} above high threshold See Below [employer] Work Phone: Comment on above: Reference Range: 0.4 4 - 3.98 TSH testing is performed using different testing methodology at [facility] than at other [facility]. Direct result comparisons should only be made within the same method. T-SPOT. TBon 06-02-2019 T-SPOT. TB Passed [facility] Work Phone: T-SPOT. TB 0 [facility] CharlotteHagerman Work Phone: T-SPOT. TB Negative See Below [facility]ireAHelpersalem memorial district hospitalTiltAtrium Health KannapolisHagerman Work Phone: Comment on above: Reference Range: Nor mal Value: NegativeA negative test result does not exclude the possibility of exposure to or infection with Mycobacterium tuberculosis (M. tuberculosis). Patients with recent exposure to TB infected individuals exhibiting a negative T-SPOT.TB result should be considered for retesting within 6 weeks or if other relevant clinical symptoms indicate. Results from T-SPOT.TB testing must be used in conjunction with each individual's epidemiological history, current medical status, and results of other diagnostic evaluations. The T-SPOT.TB test is qualitative and results are reported as positive, borderline or negative, given that the test controls perform as expected. In line with the Centers for Disease Control and Prevention's 2010 recommendation to report quantitative measurements alongside the qualitative result, the laboratory provides spot counts for informational purposes only. The T-SPOT.TB test should not be interpreted as a quantitative test. Complete Blood Count + Diffe april 05-31-2019 Basophils (Bld) [#/Vol] 0.04 {x10E9/L} See Below [facility] Work Phone: Comment on above: Reference Range: 0.0 0 - 0.10 Ordering Provider: Samara IQBAL 18877 Basophils/100 WBC (Bld) 0.5 % 0.0 - 2.0 [facility] Work Phone: Comment on above: Ordering Provider: Samara IQBAL 53715 Eosinophils (Bld) [#/Vol] 0.05 {x10E9/L} See Below [facility] Work Phone: Comment on above: Reference Range: 0.0 0 - 0.70 Ordering Provider: Samara IQBAL 18329 Eosinophils/100 WBC (Bld) 0.6 % 0.0 - 6.0 [facility] Work Phone: Comment on above: Ordering Provider: Samara IQBAL 74590 Erythrocyte distribution width (RBC) [Ratio] 15.8 % above high threshold See Below [facility] Work Phone: Comment on above: Reference Range: 11. 5 - 14.5 Ordering Provider: Samara IQBAL 10598 Hematocrit (Bld) [Volume fraction] 35.2 % below low threshold See Below [facility] Work Phone: Comment on above: Reference Range: 36. 0 - 46.0 Ordering Provider: Samara RINA IQBAL 21557 Hemoglobin (Bld) [Mass/Vol] 11.2 g/dL below low threshold See Below [facility] Work Phone: Comment on above: Reference Range: 12. 0 - 16.0 Ordering Provider: Samara RINA IQBAL 36639 Lymphocytes (Bld) [#/Vol] 2.67 {x10E9/L} See Below [facility] Work Phone: Comment on above: Reference Range: 1.2 0 - 4.80 Ordering Provider: Samara RINA IQBAL 94252 Lymphocytes/100 WBC (Bld) 31.4 % See Below [facility] Work Phone: Comment on above: Reference Range: 13. 0 - 44.0 Ordering Provider: Samara RINA IQBAL 87909 MCHC (RBC) [Mass/Vol] 31.8 g/dL below low threshold See Below [facility] Work Phone: Comment on above: Reference Range: 32. 0 - 36.0 Ordering Provider: Samara RINA IQBAL 67175 MCV (RBC) [Entitic vol] 85 fL 80 - 100 [facility] Work Phone: Comment on above: Ordering Provider: Samara FLYNN BALJINDER 55130 Monocytes (Bld) [#/Vol] 0.56 {x10E9/L} See Below [facility] Work Phone: Comment on above: Reference Range: 0.1 0 - 1.00 Ordering Provider: Samara RINA IQBAL 73228 Monocytes/100 WBC (Bld) 6.6 % 2.0 - 10.0 [facility] Work Phone: Comment on above: Ordering Provider: G RINA IQBAL 44913 Neutrophils (Bld) [#/Vol] 5.16 {x10E9/L} See Below [facility] Work Phone: Comment on above: Reference Range: 1.2 0 - 7.70 Ordering Provider: Samara SPANNEMMANUEL 29384 Neutrophils/100 WBC (Bld) 60.5 % See Below [facility] Work Phone: Comment on above: Reference Range: 40. 0 - 80.0 Ordering Provider: Samara SPANNEMMANUEL 40983 Platelets (Bld) [#/Vol] 345 {x10E9/L} 150 - 450 [facility] Work Phone: Comment on above: Ordering Provider: Samara SPANNEMMANUEL 87277 RBC (Bld) [#/Vol] 4.14 {x10E12/L} See Below [facility] Work Phone: Comment on above: Reference Range: 4.0 0 - 5.20 Ordering Provider: Samara SPANNEMMANUEL 69352 WBC (Bld) [#/Vol] 8.5 {x10E9/L} 4.4 - 11.3 [facility] Work Phone: Comment on above: Ordering Provider: Samara SMITHDEBBIE 98150 WBC (Bld) [#/Vol] 0.0 {/100_WBC} 0.0-0.0 [facility] Work Phone: Comment on above: Ordering Provider: Samara SPANNEMMANUEL 26947 Complete Blood Count + Differential 0.4 % 0.0 - 0.9 [facility] Work Phone: Comment on above: Percent differential counts (%) should be interpreted in the context of the absolute cell counts (cells/L). Ordering Provider: Samara SPANNEMMANUEL 89016 Ferritin, Serumon 05-31-2019 Ferritin [Mass/Vol] 16 ug/L 8 - 150 MP-Un iv [facility] Work Phone: Comment on above: Ordering Provider: Samara SANTIAGOSELENA 34494 Metabolic Panelon 05-31-2019 Iron [Mass/Vol] 35 ug/dL 35 - 150 -Univ [facility] Work Phone: Comment on above: Ordering Provider: Samara SANTIAGOSELENA 66443 Otheron 05-31-2019 Iron binding capacity [Mass/Vol] 346 ug/dL 240 - 445 [facility] Work Phone: Comment on above: Ordering Provider: Samara SPANNEMMANUEL 32716 10 % below low threshold 25 - 45 [facility] Work Phone: Comment on above: Ordering Provider: Samara SANTIAGOSELENA 65713 C Reactive Protein, Serumon 08-30-2018 CRP mass conc 0.97 mg/dL [facility] [employer] Work Phone: Comment on above: REF VALUE< 1.00 Ferritin, Serumon 08-30-2018 Ferritin mass conc 19 ug/L 8 - 150 MP-Uni v [facility] [employer] Work Phone: Folate, Serumon 08-30-2018 Folate mass conc 10.7 ng/mL >5.0 [facility] HospitalFanChatter [facility] HospitalNano [facility] Work Phone: Comment on above: Patients receiving m ore than 5 mg/day of biotin may have interference in test results. A sample should be taken no sooner than eight hours after previous dose. Contact the testing laboratory for additional information. Hematologyon 08-30-2018 Hematocrit Volume Fraction (Bld) 31.9 % below low threshold See Below -Univ Gastroentero [employer] Work Phone: Comment on above: Reference Range: 36. 0 - 46.0 Hemoglobin mass conc (Bld) 9.7 g/dL below low threshold See Below [facility] logy-[place] I Work Phone: Comment on above: Reference Range: 12. 0 - 16.0 MCV Entitic volume (RBC) 82 fL 80 - 100 MP-Univ [facility]astro[facility] logy-[place] I Work Phone: Platelets #/vol (Bld) 481 {x10E9/L} above high threshold 150 - 450 MP-Univ Gastroentero logy-[place] I Work Phone: RBC #/vol (Bld) 3.87 {x10E12/L} below low threshold See Below MP-Univ Gastro[facility]ero logy-[place] [facility] Work Phone: Comment on above: Reference Range: 4.0 0 - 5.20 WBC #/vol (Bld) 7.7 {x10E9/L} 4.4 - 11.3 MP-Uni v [facility]astro[facility] logy-[place] I Work Phone: WBC #/vol (Bld) 0.0 {/100_WBC} 0.0-0.0 MP-Un iv [facility]astro[facility]ero logy-[place] I Work Phone: Metabolic Panelon 08-30-2018 ALP enzyme act/vol 55 U/L 33 - 110 MP-Uni v [facility]astro[facility] logy-[place] I Work Phone: Anion gap molar conc 11 mmol/L 10 - 20 MP-Univ [facility]astro[facility]ero logy-[place] I Work Phone: Bilirubin mass conc 0.2 mg/dL 0.0 - 1.2 MP-Un iv [facility]astro[facility]ero logy-[place] I Work Phone: Calcium mass conc 9.1 mg/dL 8.6 - 10.6 MP-Univ Gastro[facility] logy-[place] I Work Phone: Chloride molar conc 104 mmol/L 98 - 107 MP-Un iv [facility]astro[facility] log[facility]-[place] [facility] Work Phone: CO2 molar conc 28 mmol/L 21 - 32 MP-Univ Gastroentero logy-[place] I Work Phone: Creatinine mass conc 0.70 mg/dL See Below [facility] Work Phone: Comment on above: Reference Range: 0.5 0 - 1.05 Glucose mass conc 81 mg/dL 74 - 99 [facility] Work Phone: Iron mass conc 19 ug/dL below low threshold 35 - 150 [facility] Work Phone: Potassium molar conc 4.2 mmol/L 3.5 - 5.3 [facility] Work Phone: Protein mass conc 6.6 g/dL 6.4 - 8.2 [facility] Work Phone: Sodium molar conc 139 mmol/L 136 - 145 [facility] Work Phone: Urea nitrogen mass conc 6 mg/dL 6 - 23 [facility] Work Phone: Otheron 08-30-2018 Albumin Bromocresol purple (BCP) dye binding method mass conc 3.6 g/dL 3.4 - 5.0 [facility] Work Phone: ALT With P-5'-P enzyme act/vol 9 U/L 7 - 45 [facility] Work Phone: Comment on above: Patients treated wit h Sulfasalazine may generate falsely decreased results for ALT. AST With P-5'-P enzyme act/vol 12 U/L 9 - 39 [facility] Work Phone: Erythrocyte distribution width Ratio (RBC) 17.2 % above high threshold See Below [facility] Work Phone: Comment on above: Reference Range: 11. 5 - 14.5 Iron binding capacity mass conc 365 ug/dL 240 - 445 [facility] deyaniraTjobs Rec[employer]inPictureMenu [facility] Work Phone: MCHC mass conc (RBC) 30.4 g/dL below low threshold See Below [facility]lerGall[facility] deyaniraQuote RollerKeon hummel [facility] Work Phone: Comment on above: Reference Range: 32. 0 - 36.0 >60 >60 Qu[facility] RollerHarlingen Medical CenterTjobs Recruitinjumana [facility] Work Phone: Comment on above: CALCULATIONS OF MTICH MATED GFR ARE PERFORMED USING THE MDRD STUDY EQUATION FOR THE IDMS-TRACEABLE CREATININE METHODS. CLIN CHEM 2007;53:766-72 5 % below low threshold 25 - 45 [facility] melissaTjobs RecruitchungPictureMenu [facility] Work Phone: [phone] Qu[employer] RollerHarlingen Medical CenterTjobs RecruitTennova [facility] - [facility] Work Phone: Comment on above: Reference Range: 230 -400 pmole/8 x 10\S\8 RBCResult Assessment: Higher risk of leucopenia. Higher likelihood of response. SEE BELOW [facility] Circu[employer]iteTjobs RecruitinPictureMenu [employer] Work Phone: Comment on above: < the lower limit of detection (223)Reference Range:< 5700 pmole/8 x 10\S\8 RBCResult Assessment:Not quantifiable. Lower Risk of Hepatotoxicity. SEE COMMENT [facility] [facility] HospitalTjobs RecruitinVentealapropriete [facility] Work Phone: Comment on above: The therapeutic rang e and toxic thresholds wereestablished in an IBD patient populationreceiving azathioprine or 6- mercaptopurine.Metabolite testing should not replace laboratorymonitoring for toxicity. TEST PERFORMED AT [employer]. Sedimentation Rate, Erythroc yteon 08-30-2018 ESR Velocity (Bld) 58 mm/h above high threshold 0 - 20 [facility] deyaniraTjobs RecruitchungVentealapropriete shaheed [facility] Work Phone: Vitamin B12, Serumon 019 Cobalamin (Vitamin B12) mass conc 501 pg/mL 211 - 911 MP-Univ [facility] Work Phone: ABDOMEN LIMITED ECHOon 07-20 ABDOMEN LIMITED ECHO DATE OF EXAM: Jul 20 2018 1:44PM CLINICAL HISTORY/ Patient Name: LOLA HIGGINBOTHAM STUDY: ABDOMEN LIMITED ECHO; 07/20/2018 1:44 pm INDICATION: ruq pain. Nausea and vomiting. COMPARISON: None. ACCESSION NUMBER(S): [id number] ORDERING CLINICIAN: MATTHEW OROZCO TECHNIQUE: Grayscale and color Doppler ultrasound evaluation of the right upper quadrant. FINDINGS: LIVER: Normal size. Normal echogenicity and contour. No focal abnormality. GALLBLADDER: No cholelithiasis demonstrated. There is a 14 mm polyp in the posterior fundus (image 62 of 94). No wall thickening or pericholecystic fluid. No focal tenderness is reported during scanning directly over the gallbladder. BILIARY TREE: No intra- or extrahepatic biliary dilatation. The extrahepatic bile duct measures 3 mm. PANCREAS: The visualized head and neck are within normal limits. The body and tail are obscured by shadowing from bowel gas. RIGHT KIDNEY: Normal size, no hydronephrosis. PERITONEUM: No ascites. CONCLUSION: IMPRESSION: No acute right upper quadrant pathology is demonstrated. There is a 14 mm polyp in the posterior gallbladder fundus. Surgical evaluation is recommended. Normal [facility] CBC With Differentialon 05-0 Basophils #/vol (Bld) 0.02 10*3/uL Normal 0.01-0.07 [facility] Comment on above: Performed By: #### 2 [id number] #### [facility] [address] [place] [address] Basophils/100 WBC (Bld) 0.3 % Normal 0.1-1.2 [facility] Comment on above: Performed By: #### 2 [id number] #### [facility] [address] [place] [address] Eosinophils #/vol (Bld) 0.06 10*3/uL Normal 0.04-0.50 [facility] Comment on above: Performed By: #### 2 [id number] #### [facility] [address] [place] [address] Eosinophils/100 WBC (Bld) 0.8 % Normal 0.0-8.1 [facility] Comment on above: Performed By: #### 2 [id number] #### [facility] [address] [place] [address] Erythrocyte distribution width Ratio (RBC) 13.4 % Normal 12.0-15.4 [facility] Comment on above: Performed By: #### 2 [id number] #### [facility] [address] [place] [address] Hematocrit Volume Fraction (Bld) 36.8 % Normal 36.5-46.6 [facility] Comment on above: Performed By: #### 2 [id number] #### [facility] [address] [place] [address] Hemoglobin mass conc (Bld) 11.8 g/dL Normal 11.8-15.3 [facility] Comment on above: Performed By: #### 2 [id number] #### [facility] [address] [place] [address] Imm Grans Absolute 0.02 10*3/uL Normal 0.00-0.21 [facility] Comment on above: Performed By: #### 2 [id number] #### [facility] [address] [place] [address] Immature granulocytes #/vol (Bld) 0.3 % Normal [facility] Healthcare Comment on above: Performed By: #### 2 [id number] #### [facility] [address] [place] [address] Lymphocytes #/vol (Bld) 2.08 10*3/uL Normal 0.40-2.84 [facility] Healthcare Comment on above: Performed By: #### 2 [id number] #### [facility] [address] [place] [address] Lymphocytes/100 WBC (Bld) 28.7 % Normal 15.7-50.5 [facility] Comment on above: Performed By: #### 2 [id number] #### [facility] [address] [place] [address] [facility] Entitic mass (RBC) 27.8 pg Normal 27.5-33.0 [facility] Comment on above: Performed By: #### 2 [id number] #### [facility] [address] [place] [address] MCHC mass conc (RBC) 32.1 g/dL Normal 30.1-35.0 [facility] Comment on above: Performed By: #### 2 [id number] #### [facility] [address] [place] [address] MCV Entitic volume (RBC) 86.6 fL Normal 85.4-100.0 [facility] Comment on above: Performed By: #### 2 [id number] #### [facility] [address] [place] [address] Monocytes #/vol (Bld) 0.33 10*3/uL Normal 0.25-0.83 [facility] Comment on above: Performed By: #### 2 [id number] #### [facility] [address] [place] [address] Monocytes/100 WBC (Bld) 4.6 % Low 4.8-12.7 [facility] Comment on above: Performed By: #### 2 [id number] #### [facility] [address] [place] [address] Neutrophils Absolute 4.73 10*3/uL Normal 1.95-6.85 [facility] Comment on above: Performed By: #### 2 [id number] #### [facility] [address] [place] [address] Neutrophils/100 WBC (Bld) 65.3 % Normal 36.8-73.2 [facility] Comment on above: Performed By: #### 2 [id number] #### [facility] [address] [place] [address] NRBC Absolute 0.00 10*3/uL Normal [facility] Comment on above: Performed By: #### 2 [id number] #### [facility] [address] [place] [address] NRBC Automated 0.0 /100{WBCs} Normal [facility] Comment on above: Performed By: #### 2 [id number] #### [facility] [address] [place] [address] Platelet mean volume Entitic volume (Bld) 9.7 fL Low 9.9-12.1 [facility] Comment on above: Performed By: #### 2 [id number] #### [facility] [address] [place] [address] Platelets #/vol (Bld) 315 10*3/uL Normal 155-404 [facility] Comment on above: Performed By: #### 2 [id number] #### [facility] [address] [place] [address] RBC #/vol (Bld) 4.25 10*6/uL Normal 3.85-5.10 [facility] Comment on above: Performed By: #### 2 [id number] #### [facility] [address] [place] [address] RDW SD 42.5 fL Normal 39.3-48.6 [facility] Comment on above: Performed By: #### 2 [id number] #### [facility] [address] [place] [address] WBC #/vol (Bld) 7.2 10*3/uL Normal 4.4-9.9 [facility] Comment on above: Performed By: #### 2 [id number] #### [facility] [address] [place] [address] Iron Profileon 09-15-2017 Iron Binding Capacity 268 ug/dL Normal 250-565 [facility] Comment on above: Performed By: #### 1 [id number] #### [facility] [address] [place] [address] Iron mass conc 40 ug/dL Normal 35-150 [facility] Comment on above: Performed By: #### 1 [id number] #### [facility] [address] [place] [address] Percent Saturation 15 % Normal 14-27 [facility] Comment on above: Performed By: #### 1 [id number] #### [facility] [address] [place] [address] Unbound Iron Binding Capacity 228 ug/dL Normal 90-340 [facility] Comment on above: Performed By: #### 1 [id number] #### [facility] [address] [place] [address] C-Reactive Proteinon 018 CRP mass conc 0.4 mg/dL Normal 0.0-1.0 [facility] Comment on above: Performed By: #### 1 [id number] #### [facility] [address] [place] [address] CBC With Differentialon 08-17 Basophils #/vol (Bld) 0.03 10*3/uL Normal 0.01-0.07 [facility] Comment on above: Performed By: #### 2 [id number] #### [facility] [address] [place] [address] Basophils/100 WBC (Bld) 0.4 % Normal 0.1-1.2 [facility] Comment on above: Performed By: #### 2 [id number] #### [facility] [address] [place] [address] Eosinophils #/vol (Bld) 0.05 10*3/uL Normal 0.04-0.50 [facility] Comment on above: Performed By: #### 2 [id number] #### [facility] [address] [place] [address] Eosinophils/100 WBC (Bld) 0.6 % Normal 0.0-8.1 [facility] Comment on above: Performed By: #### 2 [id number] #### [facility] [address] [place] [address] Erythrocyte distribution width Ratio (RBC) 13.3 % Normal 12.0-15.4 [facility] Comment on above: Performed By: #### 2 490993 #### [facility] [address] [place] [address] Hematocrit Volume Fraction (Bld) 38.6 % Normal 36.5-46.6 [facility] Comment on above: Performed By: #### 2 108663 #### [facility] [address] [place] [address] Hemoglobin mass conc (Bld) 12.2 g/dL Normal 11.8-15.3 [facility] Comment on above: Performed By: #### 2 [id number] #### [facility] [address] [place] [address] Imm Grans Absolute 0.02 10*3/uL Normal 0.00-0.21 [facility] Comment on above: Performed By: #### 2 [id number] #### [facility] [address] [place] [address] Immature granulocytes #/vol (Bld) 0.3 % Normal [facility] Comment on above: Performed By: #### 2 [id number] #### [facility] [address] [place] [address] Lymphocytes #/vol (Bld) 2.07 10*3/uL Normal 0.40-2.84 [facility] Comment on above: Performed By: #### 2 [id number] #### [facility] [address] [place] [address] Lymphocytes/100 WBC (Bld) 25.9 % Normal 15.7-50.5 [facility] Comment on above: Performed By: #### 2 [id number] #### [facility] [address] [place] [address] MCH Entitic mass (RBC) 27.9 pg Normal 27.5-33.0 [facility] Comment on above: Performed By: #### 2 [id number] #### [facility] [address] [place] [address] MCHC mass conc (RBC) 31.6 g/dL Normal 30.1-35.0 [facility] Comment on above: Performed By: #### 2 [id number] #### [facility] [address] [place] [address] MCV Entitic volume (RBC) 88.3 fL Normal 85.4-100.0 [facility] Comment on above: Performed By: #### 2 [id number] #### [facility] [address] [place] [address] Monocytes #/vol (Bld) 0.38 10*3/uL Normal 0.25-0.83 [facility] Comment on above: Performed By: #### 2 [id number] #### [facility] [address] [place] [address] Monocytes/100 WBC (Bld) 4.8 % Normal 4.8-12.7 [facility] Comment on above: Performed By: #### 2 672903 #### [facility] [address] [place] [address] Neutrophils Absolute 5.43 10*3/uL Normal 1.95-6.85 [facility] Comment on above: Performed By: #### 2 [id number] #### [facility] [address] [place] [address] Neutrophils/100 WBC (Bld) 68.0 % Normal 36.8-73.2 [facility] Comment on above: Performed By: #### 2 [id number] #### [facility] [address] [place] [address] NRBC Absolute 0.00 10*3/uL Normal [facility] Comment on above: Performed By: #### 2 [id number] #### [facility] [address] [place] [address] NRBC Automated 0.0 /100{WBCs} Normal [facility] Comment on above: Performed By: #### 2 [id number] #### [facility] [address] [place] [address] Platelet mean volume Entitic volume (Bld) 10.0 fL Normal 9.9-12.1 [facility] Comment on above: Performed By: #### 2 [id number] #### [facility] [address] [place] [address] Platelets #/vol (Bld) 322 10*3/uL Normal 155-404 [facility] Comment on above: Performed By: #### 2 [id number] #### [facility] [address] [place] [address] RBC #/vol (Bld) 4.37 10*6/uL Normal 3.85-5.10 [facility] Comment on above: Performed By: #### 2 840003 #### [facility] [address] [place] [address] RDW SD 43.1 fL Normal 39.3-48.6 [facility] Comment on above: Performed By: #### 2 [id number] #### [facility] [address] [place] [address] WBC #/vol (Bld) 8.0 10*3/uL Normal 4.4-9.9 [facility] Comment on above: Performed By: #### 2 522222 #### [facility] [address] [place] [address] Comprehensive Metabolic Pane estrella 09-08-2017 Albumin mass conc 3.9 g/dL Normal 3.4-5.0 [facility] Comment on above: Performed By: #### 1 [id number] #### [facility] [address] [place] [address] Albumin/Globulin mass ratio 1.0 {ratio} Normal 0.9-2.4 [facility] Comment on above: Performed By: #### 1 [id number] #### [facility] [address] [place] [address] ALP enzyme act/vol 51 U/L Normal 45-117 [facility] Comment on above: Performed By: #### 1 [id number] #### [facility] [address] [place] [address] ALT enzyme act/vol 9 U/L Normal 7-45 [facility] Comment on above: Performed By: #### 1 [id number] #### [facility] [address] [place] [address] Anion gap molar conc 9 mmol/L Low 10-20 [facility] Comment on above: Performed By: #### 1 698157 #### [facility] [address] [place] [address] AST enzyme act/vol 18 U/L Normal 13-39 [facility] Comment on above: Performed By: #### 1 438571 #### [facility] [address] [place] [address] Bilirubin mass conc 0.3 mg/dL Normal 0.0-1.2 [facility] Comment on above: Performed By: #### 1 [id number] #### [facility] [address] [place] [address] Calcium mass conc 9.1 mg/dL Normal 8.6-10.3 [facility] Comment on above: Performed By: #### 1 [id number] #### [facility] [address] [place] [address] Chloride molar conc 104 mmol/L Normal 98-107 [facility] Comment on above: Performed By: #### 1 584462 #### [facility] [address] [place] [address] Creatinine mass conc 0.75 mg/dL Normal 0.50-1.05 [facility] Comment on above: Performed By: #### 1 [id number] #### [facility] [address] [place] [address] GFR/1.73 sq M.predicted MDRD vol rate/area mL/min/{1.73_m2} Normal [facility] Comment on above: Result Comment: Inte rpretation for Chronic Kidney Disease: Stages 1&2 >60 Healthy or potential kidney damage. Mild decrease of GFR. Stage 3 30-59 Moderate decrease of GFR. Stage 4 15-29 Severe decrease of GFR. Stage 5 <15 Kidney failure or on dialysis. Performed By: #### 1 [id number] #### [facility] [address] [place] [address] Glucose mass conc 86 mg/dL Normal 70-100 [facility] Comment on above: Performed By: #### 1 [id number] #### [facility] [address] [place] [address] HCO3 molar conc (Bld) 27 mmol/L Normal 21-32 [facility] Comment on above: Performed By: #### 1 646119 #### [facility] [address] [place] [address] Potassium molar conc 3.7 mmol/L Normal 3.5-5.1 [facility] Comment on above: Performed By: #### 1 629291 #### [facility] [address] [place] [address] Protein mass conc 7.7 g/dL Normal 6.4-8.2 [facility] Comment on above: Performed By: #### 1 865574 #### [facility] [address] [place] [address] Sodium molar conc 136 mmol/L Normal 136-145 [facility] Comment on above: Performed By: #### 1 [id number] #### [facility] [address] [place] [address] Urea nitrogen mass conc 8 mg/dL Normal 6-23 [facility] Comment on above: Performed By: #### 1 587856 #### [facility] [address] [place] [address] Urea nitrogen/Creatinine mass ratio 11 mg/mg Normal 5-25 [facility] Comment on above: Performed By: #### 1 897405 #### [facility] [address] [place] [address] ESR, Westergrenon 09-08-2017 ESR, Westergren 47 mm/h High 0-20 [facility] Comment on above: Performed By: #### 2 [id number] #### [facility] [address] [place] [address] Miscellaneous [facility] Ordero n 09-08-2017 [facility] Test Name SEE NOTE Abnormal [facility] Comment on above: Result Comment: Test name Result Flag Units RefIntvl Thiopurine Methyltransferase 17.4 L U/mL 24.0-44.0 INTERPRETIVE INFORMATION: Thiopurine Methyltransferase, RBC Normal TPMT activity: 24.0-44.0 U/mL................Individuals are predicted to be at low risk of bone marrow toxicity (myelosuppression) as a consequence of standard thiopurine therapy; no dose adjustment is recommended. Intermediate TPMT activity: 17.0-23.9 U/mL................Individuals are predicted to be at intermediate risk of bone marrow toxicity (myelosuppression) as a consequence of standard thiopurine therapy; a dose reduction and therapeutic drug management is recommended. Low TPMT activity: less than 17.0 U/mL...........Individuals are predicted to be at high risk of bone marrow toxicity (myelosuppression) as a consequence of standard thiopurine dosing. It is recommended to avoid the use of thiopurine drugs. High TPMT activity: greater than 44.0 U/mL........Individuals are not predicted to be at risk for bone marrow toxicity (myelosuppression) as a consequence of standard thiopurine dosing, but may be at risk for therapeutic failure due to excessive inactivation of thiopurine drugs. Individuals may require higher than the normal standard dose. Therapeutic drug management is recommended. The TPMT, RBC assay is used as a screen to detect individuals with low and intermediate TPMT activity who may be at risk for myelosuppression when exposed to standard doses of thiopurines, including azathioprine (Imuran) and 6-mercaptopurine (Purinethol). TPMT is the primary metabolic route for inactivation of thiopurine drugs in the bone marrow. When TPMT activity is low, it is predicted that proportionately more 6-mercaptopurine can be converted into the cytotoxic 6-thioguanine nucleotides that accumulate in the bone marrow causing excessive toxicity. The activity of TPMT is measured by the nanomoles of 6-methylmercaptopurine (inactive metabolite) produced per 1 mL of packed red blood cells, (U/mL). TPMT phenotype testing does not replace the need for clinical monitoring of patients treated with thiopurine drugs. Genotype for TPMT cannot be inferred from TPMT activity (phenotype). Phenotype testing should not be requested for patients currently treated with thiopurine drugs. Current TPMT phenotype may not reflect future TPMT phenotype, particularly in patients who received blood transfusion within 30-60 days of testing. TPMT enzyme activity can be inhibited by several drugs such as: naproxen (Aleve), ibuprofen (Advil, Motrin), ketoprofen (Orudis), furosemide (Lasix), sulfasalazine (Azulfidine), mesalamine (Asacol), olsalazine (Dipentum), mefenamic acid (Ponstel), thiazide diuretics, and benzoic acid inhibitors. TPMT inhibitors may contribute to falsely low results; patients should abstain from these drugs for at least 48 hours prior to TPMT testing. Falsely low results may also occur as a result of inappropriate specimen handling and hemolysis. Test developed and characteristics determined by [facility]. See Compliance Statement B: [email or web address] Performed by [facility], [address] [place], [place] [id number] [email or web address], Enrique Rivera MD - Lab. Director Performed By: #### M [facility] #### [facility] [address] [place] [address] Vital Signs Date Time Vital Sign Value Performing Clinician Facility 03-02-2024 09:32-0400 Body height 160 cm Binu Soptelean INTERNET MARKETING DIRECTOR-CRITICAL CARE PHYSICIAN Work Phone: [facility] 03-02-2024 09:32-0400 Body mass index (BMI) [Ratio] 37.98 kg/m2 Binu Soptelean INTERNET MARKETING DIRECTOR-CRITICAL CARE PHYSICIAN Work Phone: [facility] 03-02-2024 09:32-0400 Body weight 97.25 kg Binu Soptelean INTERNET MARKETING DIRECTOR-CRITICAL CARE PHYSICIAN Work Phone: [facility] 03-02-2024 09:32-0400 Diastolic blood pressure 102 mm[Hg] Binu Soptelean INTERNET MARKETING DIRECTOR-CRITICAL CARE PHYSICIAN Work Phone: [facility] 03-02-2024 09:32-0400 Heart rate 87 /min Binu Soptelean INTERNET MARKETING DIRECTOR-CRITICAL CARE PHYSICIAN Work Phone: [facility] 03-02-2024 09:32-0400 SaO2% (BldA) [Mass fraction] 96 % Binu Soptelean INTERNET MARKETING DIRECTOR-CRITICAL CARE PHYSICIAN Work Phone: [facility] 03-02-2024 09:32-0400 Systolic blood pressure 138 mm[Hg] Binu Soptelean INTERNET MARKETING DIRECTOR-CRITICAL CARE PHYSICIAN Work Phone: [facility] 09-01-2023 11:45-0400 Body height 160 cm Padma Ware MD Work Phone: [facility] 09-01-2023 11:45-0400 Body mass index (BMI) [Ratio] 37.91 kg/m2 Padma Ware MD Work Phone: [facility] 09-01-2023 11:45-0400 Body temperature 97.7 [degF] Padma Ware MD Work Phone: [facility] 09-01-2023 11:45-0400 Body weight 97.07 kg Padma Ware MD Work Phone: [facility] 09-01-2023 11:45-0400 Diastolic blood pressure 109 mm[Hg] Padma Ware MD Work Phone: [facility] 09-01-2023 11:45-0400 Heart rate 78 /min Padma Ware MD Work Phone: [facility] 09-01-2023 11:45-0400 Respiratory rate 18 /min Padma Ware MD Work Phone: [facility] 09-01-2023 11:45-0400 Systolic blood pressure 147 mm[Hg] Padma Ware MD Work Phone: [facility] 07-15-2023 08:11-0500 Body mass index (BMI) [Ratio] 37.12 kg/m2 Kiko Maloneyrton INTERNET MARKETING DIRECTOR-CRITICAL CARE PHYSICIAN Work Phone: [facility] 07-15-2023 08:11-0500 Body temperature 97.7 [degF] Kiko Amararton INTERNET MARKETING DIRECTOR-CRITICAL CARE PHYSICIAN Work Phone: [facility] 07-15-2023 08:11-0500 Body weight 95.5 kg Kiko Amararton INTERNET MARKETING DIRECTOR-CRITICAL CARE PHYSICIAN Work Phone: [facility] 07-15-2023 08:11-0500 Diastolic blood pressure 97 mm[Hg] Kiko Amararton INTERNET MARKETING DIRECTOR-CRITICAL CARE PHYSICIAN Work Phone: [facility] 07-15-2023 08:11-0500 Heart rate 76 /min Kiko Maloneyrton INTERNET MARKETING DIRECTOR-CRITICAL CARE PHYSICIAN Work Phone: [facility] 07-15-2023 08:11-0500 Respiratory rate 16 /min Kiko Aburto INTERNET MARKETING DIRECTOR-CRITICAL CARE PHYSICIAN Work Phone: [facility] 07-15-2023 08:11-0500 SaO2% (BldA) [Mass fraction] 98 % Kiko Aburto INTERNET MARKETING DIRECTOR-CRITICAL CARE PHYSICIAN Work Phone: [facility] 07-15-2023 08:11-0500 Systolic blood pressure 135 mm[Hg] Kiko Aburto INTERNET MARKETING DIRECTOR-CRITICAL CARE PHYSICIAN Work Phone: [facility] 04-22-2023 13:48-0500 Body temperature 98.4 [degF] Cherelle Zarate MD Work Phone: [facility] 04-22-2023 13:48-0500 Diastolic blood pressure 103 mm[Hg] Cherelle Zarate MD Work Phone: [facility] 04-22-2023 13:48-0500 Systolic blood pressure 156 mm[Hg] Cherelle Zarate MD Work Phone: [facility] 03-13-2023 09:38-0400 Body height 160 cm Mariia Dolores PA-C Work Phone: [facility] 03-13-2023 09:38-0400 Body mass index (BMI) [Ratio] 36.76 kg/m2 Mariia Dolores PA-C Work Phone: [facility] 03-13-2023 09:38-0400 Body temperature 97.2 [degF] Mariia Dolores PA-C Work Phone: [facility] 03-13-2023 09:38-0400 Body weight 94.1 kg Mariia Dolores PA-C Work Phone: [facility] 03-13-2023 09:38-0400 Diastolic blood pressure 97 mm[Hg] Mariia Dolores PA-C Work Phone: [facility] 03-13-2023 09:38-0400 Heart rate 72 /min Mariia Dolores PA-C Work Phone: [facility] 03-13-2023 09:38-0400 Respiratory rate 16 /min Mariia Dolores PA-C Work Phone: [facility] 03-13-2023 09:38-0400 SaO2% (BldA) [Mass fraction] 97 % Mariia Dolores PA-C Work Phone: [facility] 03-13-2023 09:38-0400 Systolic blood pressure 143 mm[Hg] Mariia Dolores PA-C Work Phone: [facility] 02-17-2023 09:14-0400 Body height 160 cm Scarlett Martin INTERNET MARKETING DIRECTOR-CRITICAL CARE PHYSICIAN Work Phone: [facility] 02-17-2023 09:14-0400 Body mass index (BMI) [Ratio] 37.02 kg/m2 Scarlett Martin INTERNET MARKETING DIRECTOR-CRITICAL CARE PHYSICIAN Work Phone: [facility] 02-17-2023 09:14-0400 Body weight 94.8 kg Scarlett Martin INTERNET MARKETING DIRECTOR-CRITICAL CARE PHYSICIAN Work Phone: [facility] 02-17-2023 09:14-0400 Diastolic blood pressure 96 mm[Hg] Scarlett Martin INTERNET MARKETING DIRECTOR-CRITICAL CARE PHYSICIAN Work Phone: [facility] 02-17-2023 09:14-0400 Heart rate 88 /min Scarlett Martin INTERNET MARKETING DIRECTOR-CRITICAL CARE PHYSICIAN Work Phone: [facility] 02-17-2023 09:14-0400 Systolic blood pressure 149 mm[Hg] Scarlett Martin INTERNET MARKETING DIRECTOR-CRITICAL CARE PHYSICIAN Work Phone: [facility] 12-11-2022 10:16-0400 Body temperature 97.5 [degF] Matthew Orozco Work Phone[facility] Work Phone: 12-11-2022 10:16-0400 Diastolic blood pressure 103 mm[Hg] Matthew [facility]rozco [facility] Phone[facility] Work Phone: 12-11-2022 10:16-0400 Systolic blood pressure 148 mm[Hg] Matthew Orozco Work Phone: [facility] Work Phone: 12-11-2022 10:16-0400 0 1 Matthew Orozco Work Phone: [facility] Work Phone: Comment on above: [employer] 09-09-2022 13:04-0400 Body temperature 97.9 [degF] Matthew Orozco Work Phone: [facility] Work Phone: 09-09-2022 13:04-0400 Diastolic blood pressure 99 mm[Hg] Matthew Orozco Work Phone: [facility] Work Phone: 09-09-2022 13:04-0400 Systolic blood pressure 144 mm[Hg] Matthew Orozco Work Phone: [facility] Work Phone: 09-09-2022 13:04-0400 0 1 Matthew Orozco Work Phone: [facility] Work Phone: Comment on above: [employer] 05-27-2022 11:57-0500 Body height 160.02 cm Matthew Orozco Work Phone: [facility] 2468 Work Phone: 05-27-2022 11:57-0500 Body mass index (BMI) [Ratio] 33.48 kg/m2 Matthew Orozco Work Phone: [employer] [place] [facility]60 Work Phone: 05-27-2022 11:57-0500 Body surface area Derived from formula 1.89 m2 Matthew Orozco Work Phone: [employer] [place] 2460 Work Phone: 05-27-2022 11:57-0500 Body temperature 98.1 [degF] Matthew Orozco Work Phone: [employer] [facility] [place] [facility]60 Work Phone: 05-27-2022 11:57-0500 Body weight 85.73 kg Matthew Orozco Work Phone: [employer] [place] 2461 Work Phone: 05-27-2022 11:57-0500 Diastolic blood pressure 84 mm[Hg] Matthew Orozco Work Phone: [employer] [place] [facility]64 Work Phone: 05-27-2022 11:57-0500 Systolic blood pressure 133 mm[Hg] Matthew Orozco Work Phone: [employer] [place] [facility]68 Work Phone: 05-27-2022 11:57-0500 0 1 Matthew Orozco Work Phone: [employer] [place] [facility]64 Work Phone: Comment on above: [employer] 01-21-2022 09:59-0400 Body height 160.02 cm Matthew Orozco Work Phone: [employer] [place] 2460 Work Phone: 01-21-2022 09:59-0400 Body mass index (BMI) [Ratio] 31.89 kg/m2 Matthew Orozco Work Phone: [facility] Work Phone: 01-21-2022 09:59-0400 Body surface area Derived from formula 1.85 m2 Matthew Orozco Work Phone: [facility] Work Phone: 01-21-2022 09:59-0400 Body temperature 97.5 [degF] Matthew Orozco Work Phone: [facility] Work Phone: 01-21-2022 09:59-0400 Body weight 81.65 kg Matthew Orozco Work Phone: [facility] Work Phone: 01-21-2022 09:59-0400 Diastolic blood pressure 88 mm[Hg] Matthew Orozco Work Phone: [facility] Work Phone: 01-21-2022 09:59-0400 Systolic blood pressure 126 mm[Hg] Matthew Orozco Work Phone: [facility]347 Work Phone: 01-21-2022 09:59-0400 0 1 Matthew Orozco Work Phone: [employer] Work Phone: Comment on above: [employer] 11-26-2021 14:09-0400 Body height 160.02 cm Matthew Orozco Work Phone: [facility] Work Phone: 11-26-2021 14:09-0400 Body mass index (BMI) [Ratio] 31.42 kg/m2 Matthew Orozco Work Phone: [facility] Work Phone: 11-26-2021 14:09-0400 Body surface area Derived from formula 1.84 m2 Matthew Orozco Work Phone: [facility] [facility] Work Phone: 11-26-2021 14:09-0400 Body temperature 97.5 [degF] Matthew Orozco Work Phone: [facility] Work Phone: 11-26-2021 14:09-0400 Body weight 80.46 kg Matthew Orozco Work Phone: [facility] Work Phone: 11-26-2021 14:09-0400 Diastolic blood pressure 83 mm[Hg] Matthew Orozco Work Phone: [facility] Work Phone: 11-26-2021 14:09-0400 Heart rate 85 /min Matthew Orozco Work Phone: [facility] Work Phone: 11-26-2021 14:09-0400 Systolic blood pressure 123 mm[Hg] Matthew Orozco Work Phone: [facility] Work Phone: 10-08-2021 09:19-0400 Body height 160.02 cm Matthew Orozco Work Phone: [facility] 250 Work Phone: 10-08-2021 09:19-0400 Body mass index (BMI) [Ratio] 31.18 kg/m2 Matthew Orozco Work Phone: [facility] 250 Work Phone: 10-08-2021 09:19-0400 Body surface area Derived from formula 1.83 m2 Matthew Orozco Work Phone: [facility] [place] [facility] [facility] Work Phone: 10-08-2021 09:19-0400 Body temperature 98.3 [degF] Matthew Orozco Work Phone: [facility] [place] [facility] 250 Work Phone: 10-08-2021 09:19-0400 Body weight 79.83 kg Matthew Orozco Work Phone: [facility] [place] [facility] 250 Work Phone: 10-08-2021 09:19-0400 Diastolic blood pressure 91 mm[Hg] Matthew Orozco Work Phone: [facility] [place] [facility] 250 Work Phone: 10-08-2021 09:19-0400 Systolic blood pressure 132 mm[Hg] Matthew Orozco Work Phone: [facility] 250 Work Phone: 10-08-2021 09:19-0400 0 1 Matthew Orozco Work Phone: [facility] [place] [facility] 250 Work Phone: Comment on above: PainScale 09-03-2021 10:07-0400 Body height 160.02 cm Matthew Orozco Work Phone: [facility] Work Phone: 09-03-2021 10:07-0400 Body mass index (BMI) [Ratio] 34.19 kg/m2 Matthew Orozco Work Phone: [facility] Work Phone: 09-03-2021 10:07-0400 Body surface area Derived from formula 1.9 m2 Matthew Orozco Work Phone: [facility] Work Phone: 09-03-2021 10:07-0400 Body temperature 96.6 [degF] Matthew Orozco Work Phone: [facility] Work Phone: 09-03-2021 10:07-0400 Body weight 87.54 kg Matthew Orozco Work Phone: [facility] Work Phone: 09-03-2021 10:07-0400 Diastolic blood pressure 97 mm[Hg] Matthew Orozco Work Phone: [facility] Work Phone: 09-03-2021 10:07-0400 Heart rate 78 /min Matthew Orozco Work Phone: [facility] Work Phone: 09-03-2021 10:07-0400 Systolic blood pressure 145 mm[Hg] Matthew Orozco Work Phone: [facility] Work Phone: 08-21-2021 14:54-0400 Body height 160.02 cm Matthew Orozco Work Phone: KC-Ovkcyhvtdtcfw-G [employer] 1600 Work Phone: 08-21-2021 14:54-0400 Body mass index (BMI) [Ratio] 32.59 kg/m2 Matthew Orozco Work Phone: RN-Vkwfoheyfzcbt-Q [employer] 1600 Work Phone: 08-21-2021 14:54-0400 Body surface area Derived from formula 1.87 m2 Matthew Orozco Work Phone: OV-Wmnamqhvgpxgf-X Luis M 1600 Work Phone: 08-21-2021 14:54-0400 Body temperature 98 [degF] Matthew Orozco Work Phone: RJ-Fbfxilykdwrbx-D [facility] [place] 1600 Work Phone: 08-21-2021 14:54-0400 Body weight 83.46 kg Matthew Orozco Work Phone: KO-Lnlifvyxzhzqf-F [facility] [place] M 1600 Work Phone: 08-21-2021 14:54-0400 Diastolic blood pressure 105 mm[Hg] Matthew Orozco Work Phone: OH-Cskvkjfgsbdba-I [facility] Luis M 1600 Work Phone: 08-21-2021 14:54-0400 Heart rate 81 /min Matthew Orozco Work Phone: II-Hmreoqumflteh-P [facility] [place] 1600 Work Phone: 08-21-2021 14:54-0400 Systolic blood pressure 145 mm[Hg] Matthew Orozco Work Phone: TF-Drftciqfhlgwj-H Luis M 1600 Work Phone: 07-09-2021 10:15-0500 Body height 160.02 cm Matthew Orozco Work Phone: [facility] 250 Work Phone: 07-09-2021 10:15-0500 Body mass index (BMI) [Ratio] 33.83 kg/m2 Matthew Orozco Work Phone: [facility] [employer] 250 Work Phone: 07-09-2021 10:15-0500 Body surface area Derived from formula 1.9 m2 Matthew Orozco Work Phone: [facility]tolaryngoAden[facility] CenterTrans[facility] MedicalW 250 Work Phone: 07-09-2021 10:15-0500 Body temperature 98.3 [degF] Matthew Orozco Work Phone: [facility] 250 Work Phone: 07-09-2021 10:15-0500 Body weight 86.64 kg Matthew Orozco Work Phone: [facility] [place] 250 Work Phone: 07-09-2021 10:15-0500 Diastolic blood pressure 86 mm[Hg] Matthew Orozco Work Phone: [facility] [place] 250 Work Phone: 07-09-2021 10:15-0500 Systolic blood pressure 130 mm[Hg] Matthew Orozco Work Phone: [facility] [place] 250 Work Phone: 04-24-2021 09:08-0500 Body height 160.02 cm Matthew Orozco Work Phone: MD-Wkkyufbq-Esrekb [place] 1500 Work Phone: 04-24-2021 09:08-0500 Body mass index (BMI) [Ratio] 34.37 kg/m2 Matthew Orozco Work Phone: EF-Kewylwii-Cwuvcb [place] 1500 Work Phone: 04-24-2021 09:08-0500 Body surface area Derived from formula 1.91 m2 Matthew Orozco Work Phone: YQ-Iehtodbv-Mdfeoe [place] 1500 Work Phone: 04-24-2021 09:08-0500 Body weight 88 kg Matthew Orozco Work Phone: PL-Xrjcbjtk-Gpfwxr [place] 1500 Work Phone: 04-24-2021 09:08-0500 Diastolic blood pressure 90 mm[Hg] Matthew Orozco Work Phone: XF-Ckdbwgry-Borcyg [place] 1500 Work Phone: 04-24-2021 09:08-0500 Heart rate 88 /min Matthew rOozco Work Phone: II-Ttxocqug-Sgdmze [place] 1500 Work Phone: 04-24-2021 09:08-0500 Systolic blood pressure 133 mm[Hg] Matthew Orozco Work Phone: TZ-Zpcevvje-Upwbdm [place] 1500 Work Phone: 04-24-2021 09:08-0500 0 1 Matthew Orozco Work Phone: YH-Pkpqiovz-Ntthxh [place] 1500 Work Phone: Comment on above: PainScale 03-26-2021 09:53-0500 Body height 160.02 cm Matthew Orozco Work Phone: MG-Otolaryngology- [place] [employer] Work Phone: 03-26-2021 09:53-0500 Body mass index (BMI) [Ratio] 34.19 kg/m2 Matthew Orozco Work Phone: [facility]-Otolaryngology- [place] [employer] Work Phone: 03-26-2021 09:53-0500 Body surface area Derived from formula 1.9 m2 Matthew Orozco Work Phone: MG-Otolaryngology- [place] [employer] Work Phone: 03-26-2021 09:53-0500 Body temperature 98.3 [degF] Matthew Orozco Work Phone: MG-Otolaryngology- [place] [employer] Work Phone: 03-26-2021 09:53-0500 Body weight 87.54 kg Matthew Orozco Work Phone: MG-Otolaryngology- [place] [employer] Work Phone: 03-26-2021 09:53-0500 Diastolic blood pressure 90 mm[Hg] Matthew Orozco Work Phone: MG-Otolaryngology- [place] [facility] Work Phone: 03-26-2021 09:53-0500 Systolic blood pressure 133 mm[Hg] Matthew Orozco Work Phone: [facility]-Otolaryngology- [place] [facility] Work Phone: 03-26-2021 09:53-0500 0 1 Matthew Orozco Work Phone: MG-Otolaryngology- [place] [facility] Work Phone: Comment on above: PainScale 02-26-2021 10:02-0400 Body height 160.02 cm Matthew Orozco Work Phone: MG-Otolaryngology- [place] [employer] Work Phone: 02-26-2021 10:02-0400 Body mass index (BMI) [Ratio] 35.78 kg/m2 Matthew Orozco Work Phone: MG-Otolaryngology- [place] [facility] Work Phone: 02-26-2021 10:02-0400 Body surface area Derived from formula 1.94 m2 Matthew Orozco Work Phone: MG-Otolaryngology- [place] [employer] Work Phone: 02-26-2021 10:02-0400 Body temperature 97.1 [degF] Matthew Orozco Work Phone: MG-Otolaryngology- [place] [employer] Work Phone: 02-26-2021 10:02-0400 Body weight 91.63 kg Matthew Orozco Work Phone: MG-Otolaryngology- [place] [employer] Work Phone: 02-26-2021 10:02-0400 Diastolic blood pressure 93 mm[Hg] Matthew Orozco Work Phone: MG-Otolaryngology- [place] [facility] Work Phone: 02-26-2021 10:02-0400 Heart rate 89 /min Matthew Orozco Work Phone: MG-Otolaryngology- [place] [employer] Work Phone: 02-26-2021 10:02-0400 Respiratory rate 16 /min Matthew Orozco Work Phone: MG-Otolaryngology- [place] [facility] Work Phone: 02-26-2021 10:02-0400 Systolic blood pressure 133 mm[Hg] Matthew Orozco Work Phone: MG-Otolaryngology- [place] [facility] Work Phone: 11-20-2020 10:18-0400 Body height 160.02 cm Matthew Orozco Work Phone: MP-Otolaryngology- [place] [facility] Work Phone: 11-20-2020 10:18-0400 Body mass index (BMI) [Ratio] 35.07 kg/m2 Matthew Orozco Work Phone: [facility]tolaryngology- [place] [facility] Work Phone: 11-20-2020 10:18-0400 Body surface area Derived from formula 1.93 m2 Matthew Orozco Work Phone: MP-Otolaryngology- [place] [facility] Work Phone: 11-20-2020 10:18-0400 Body temperature 98 [degF] Matthew Orozco Work Phone: [facility]tolaryngology- [place] [facility] Work Phone: 11-20-2020 10:18-0400 Body weight 89.81 kg Matthew Orozco Work Phone: [facility] [place] Work Phone: 11-20-2020 10:18-0400 Diastolic blood pressure 93 mm[Hg] Matthew Orozco Work Phone: [facility] Work Phone: 11-20-2020 10:18-0400 Systolic blood pressure 135 mm[Hg] Matthew Orozco Work Phone: [facility] Work Phone: 11-20-2020 10:18-0400 0 1 Matthew Orozco Work Phone: [facility] Work Phone: Comment on above: PainScale 06-28-2020 12:43-0500 BMI (Body Mass Index) 32.77 kg/m2 Scarlett Martin XL-Fbevqhbjmlwts-S [employer] 1600 Work Phone: 06-28-2020 12:43-0500 Body Temperature 98.4 [degF] Scarlett Martin MG-Endocrinolog y-C [employer] 1600 Work Phone: 06-28-2020 12:43-0500 Body weight 83.92 kg Scarlett Martin MG-Endocrinology -C [place] 1600 Work Phone: 06-28-2020 12:43-0500 BP Diastolic 70 mm[Hg] Scarlett Martin MG-Endocrinology -C [place] 1600 Work Phone: 06-28-2020 12:43-0500 BP Systolic 122 mm[Hg] Scarlett Martin [facility]-Endocrinology -C [place] M 1600 Work Phone: 06-28-2020 12:43-0500 BSA (Body Surface Area) 1.87 m2 Scarlett Martin RR-Hzqalhtlxezup-F [place] 1600 Work Phone: 06-28-2020 12:43-0500 Height 160.02 cm Scarlett Martin MG-Endocrinology -C [place] 1600 Work Phone: 06-19-2020 13:14-0500 BMI (Body Mass Index) 32.77 kg/m2 Scarlett Martin VZ-Eeuodfrricvjm-Q [place] 1600 Work Phone: 06-19-2020 13:14-0500 Body Temperature 96.9 [degF] Scarlett Martin MG-Endocrinolog y-C [place] 1600 Work Phone: 06-19-2020 13:14-0500 Body weight 83.92 kg Scarlett Martin MG-Endocrinology -C [place] 1600 Work Phone: 06-19-2020 13:14-0500 BP Diastolic 92 mm[Hg] Scarlett Martin MG-Endocrinology -C [place] 1600 Work Phone: 06-19-2020 13:14-0500 BP Systolic 135 mm[Hg] Scarlett Martin [facility]-Endocrinology -C [place] 1600 Work Phone: 06-19-2020 13:14-0500 BSA (Body Surface Area) 1.87 m2 Scarlett Martin ON-Lffudhaertclt-D [place] 1600 Work Phone: 06-19-2020 13:14-0500 Height 160.02 cm Scarlett Martin MG-Endocrinology -C [place] 1600 Work Phone: 06-19-2020 13:14-0500 Pulse (Heart Rate) 55 /min Scarlett Martin MG-Endocrinol ogy-C [place] M 1600 Work Phone: 06-19-2020 13:14-0500 Respiratory Rate 16 /min Scarlett Martin MG-Endocrinolog y-C [place] 1600 Work Phone: 06-07-2019 16:32-0500 BMI (Body Mass Index) 32.59 kg/m2 Padma Orozco [facility] Work Phone: 06-07-2019 16:32-0500 Body Temperature 97.9 [degF] Padma Orozco [facility] Work Phone: 06-07-2019 16:32-0500 Body weight 83.46 kg Padma Orozco [facility] Work Phone: 06-07-2019 16:32-0500 BP Diastolic 86 mm[Hg] Padma Orozco [facility] Work Phone: 06-07-2019 16:32-0500 BP Systolic 127 mm[Hg] Padma Orozco [facility] Work Phone: 06-07-2019 16:32-0500 BSA (Body Surface Area) 1.87 m2 Padma Orozco [facility] Work Phone: 06-07-2019 16:32-0500 Height 160.02 cm Padma Orozco [facility] Work Phone: 06-07-2019 16:32-0500 Pulse (Heart Rate) 71 /min Padma Orozco [facility] Work Phone: 06-07-2019 16:32-0500 Pulse Oximetry 100 % Padma Orozco [facility] Work Phone: 06-07-2019 16:32-0500 0 1 Padma Orozco [facility] Work Phone: Comment on above: Pain Scale 05-31-2019 15:39-0500 BMI (Body Mass Index) 32.77 kg/m2 Padma Orozco [facility] Work Phone: 05-31-2019 15:39-0500 Body Temperature 98.5 [degF] Padma Orozco [facility] Work Phone: 05-31-2019 15:39-0500 Body weight 83.92 kg Padma Orozco [facility] Work Phone: 05-31-2019 15:39-0500 BP Diastolic 68 mm[Hg] Padma Orozco [facility] Work Phone: 05-31-2019 15:39-0500 BP Systolic 108 mm[Hg] Padma Orozco [facility] Work Phone: 05-31-2019 15:39-0500 BSA (Body Surface Area) 1.87 m2 Padma Orozco [facility] Work Phone: 05-31-2019 15:39-0500 Height 160.02 cm Padma Orozco [facility] Work Phone: 04-27-2019 12:05-0500 BMI (Body Mass Index) 32.24 kg/m2 Padma Orozco [facility] Work Phone: 04-27-2019 12:05-0500 Body weight 82.56 kg Padma Orozco [facility] Work Phone: 04-27-2019 12:05-0500 BP Diastolic 87 mm[Hg] Padma Orozco [facility] Work Phone: 04-27-2019 12:05-0500 BP Systolic 130 mm[Hg] Padma Orozco [facility] Work Phone: 04-27-2019 12:05-0500 BSA (Body Surface Area) 1.86 m2 Padma Orozco [facility] Work Phone: 04-27-2019 12:05-0500 Height 160.02 cm Padma Orozco [facility] Work Phone: 04-27-2019 12:05-0500 Pulse (Heart Rate) 71 /min Padma Orozco [facility] Work Phone: 04-12-2019 13:41-0500 BMI (Body Mass Index) 31.71 kg/m2 Padma Orozco [facility] Work Phone: 04-12-2019 13:41-0500 Body weight 81.19 kg Padma Orozco [facility] Work Phone: 04-12-2019 13:41-0500 BP Diastolic 86 mm[Hg] Padma Orozco [facility] Work Phone: 04-12-2019 13:41-0500 BP Systolic 136 mm[Hg] Padma Orozco [facility] Work Phone: 04-12-2019 13:41-0500 BSA (Body Surface Area) 1.84 m2 Padma Orozco [facility] Work Phone: 04-12-2019 13:41-0500 Height 160.02 cm Padma Orozco [facility] Work Phone: 04-12-2019 13:41-0500 Pulse (Heart Rate) 126 /min Padma Orozco [facility] Work Phone: 04-12-2019 13:41-0500 Respiratory Rate 16 /min Padma Orozco [facility] Work Phone: 09-21-2018 12:50-0400 BMI (Body Mass Index) 32.06 kg/m2 Padma Orozco [facility] [place] [facility] Work Phone: 09-21-2018 12:50-0400 BP Diastolic 72 mm[Hg] Padma Orozco [facility] [place] [facility] Work Phone: 09-21-2018 12:50-0400 BP Systolic 129 mm[Hg] Padma Orozco -Otolaryngolog y- [place] [facility] Work Phone: 09-21-2018 12:50-0400 BSA (Body Surface Area) 1.85 m2 Padma Orozco -Otolaryngology- [place] [facility] Work Phone: 09-21-2018 12:50-0400 Height 160.02 cm Padma Orozco [facility] Work Phone: 09-21-2018 12:50-0400 Pulse (Heart Rate) 92 /min Padma Orozco MP-Otolaryngo logy- [place] [facility] Work Phone: 09-21-2018 12:50-0400 Respiratory Rate 16 /min Padma Orozco -[facility] Work Phone: 09-21-2018 12:50-0400 Weight 82.1 kg Padma Orozco [facility] Work Phone: 09-16-2018 16:43-0400 BMI (Body Mass Index) 32.06 kg/m2 Padma Orozco [facility] Work Phone: 09-16-2018 16:43-0400 Body Temperature 98.1 [degF] Padma Orozco [facility] Work Phone: 09-16-2018 16:43-0400 BP Diastolic 85 mm[Hg] [facility]: 09-16-2018 16:43-0400 BP Systolic 119 mm[Hg] [facility] Work [facility]: 09-16-2018 16:43-0400 BSA (Body Surface Area) 1.85 m2 [facility] Work Phone: 09-16-2018 16:43-0400 Height 160.02 cm Padma Orozco [facility] Work Phone: 09-16-2018 16:43-0400 Pulse (Heart Rate) 91 /min Padma Orozco [facility] Work Phone: 09-16-2018 16:43-0400 Pulse Oximetry 98 % Padma Orozco [facility] Work Phone: 09-16-2018 16:43-0400 Respiratory Rate 16 /min Padma Orozco [facility] Work Phone: 09-16-2018 16:43-0400 Weight 82.1 kg Padma Orozco [facility] Work Phone: 08-31-2018 13:37-0400 BMI (Body Mass Index) 31.89 kg/m2 Padma Orozco [facility] Work Phone: 08-31-2018 13:37-0400 Body Temperature 98.4 [degF] Padma Orozco [facility] Work Phone: 08-31-2018 13:37-0400 BP Diastolic 85 mm[Hg] Padma Orozco [facility] Work Phone: 08-31-2018 13:37-0400 BP Systolic 119 mm[Hg] Padma Orozco [facility] Work Phone: 08-31-2018 13:37-0400 BSA (Body Surface Area) 1.85 m2 Padma Orozco [facility] Work Phone: 08-31-2018 13:37-0400 Height 160.02 cm Padma Orozco [facility] Work Phone: 08-31-2018 13:37-0400 Pulse (Heart Rate) 106 /min Padma Orozco [facility] Work Phone: 08-31-2018 13:37-0400 Weight 81.65 kg Padma Orozco [facility] Work Phone: 08-31-2018 13:37-0400 0 1 Padma Orozco [facility] Work Phone: Comment on above: Pain Scale 08-30-2018 16:05-0400 BMI (Body Mass Index) 32.06 kg/m2 Padma Orozco [facility] est[facility] Work Phone: 08-30-2018 16:05-0400 Body Temperature 98.2 [degF] Padma Orozco [facility] Work Phone: 08-30-2018 16:05-0400 BP Diastolic 88 mm[Hg] Padma Orozco [facility] Work Phone: 08-30-2018 16:05-0400 BP Systolic 134 mm[Hg] Padma Orozco [facility] Work Phone: 08-30-2018 16:05-0400 BSA (Body Surface Area) 1.85 m2 Padma Orozco [facility] Work Phone: 08-30-2018 16:05-0400 Height 160.02 cm Padma Orozco [facility] Work Phone: 08-30-2018 16:05-0400 Pulse (Heart Rate) 101 /min Padma rOozco [facility] Work Phone: 08-30-2018 16:05-0400 Weight 82.1 kg Padma Orozco [facility] Work Phone: 08-30-2018 16:05-0400 0 1 Padma Orozco [facility] Work Phone: Comment on above: Pain Scale 08-27-2018 11:39-0400 BMI (Body Mass Index) 31.89 kg/m2 Padma Orozco [facility] Work Phone: 08-27-2018 11:39-0400 Body Temperature 98.6 [degF] Padma Orozco [facility] Work Phone: 08-27-2018 11:39-0400 BP Diastolic 88 mm[Hg] Padma Orozco [facility]-[place] Work Phone: 08-27-2018 11:39-0400 BP Systolic 122 mm[Hg] Padma Orozco [facility] Work Phone: 08-27-2018 11:39-0400 BSA (Body Surface Area) 1.85 m2 Padma Orozco [facility] Work Phone: 08-27-2018 11:39-0400 Weight 81.65 kg Padma Orozco [facility]- [place] Work Phone: Encounters Encounter Date Encounter Type Care Provider Facility Start: 03-31-2024 End: 03-31-2024 ambulatory Kendra Garcia [facility] Work Phone: Start: 03-31-2024 End: 03-31-2024 Departed Referred Kendra Garcia MD Work Phone: [facility] [place] Work Phone: Start: 03-04-2024 End: 03-04-2024 ambulatory [facility] Ambulatory Start: 03-02-2024 End: 03-02-2024 Office outpatient visit 15 minutes Binu Baldwin INTERNET MARKETING DIRECTOR-CRITICAL CARE PHYSICIAN Work Phone: [facility] Comment on above: Crohn's disease of s mall and large intestines with complication (Multi) (Primary Dx) Start: 03-02-2024 End: 03-02-2024 ambulatory MATTHEW Oliver [facility] Start: 02-17-2024 End: 02-17-2024 Office outpatient visit 15 minutes Kiko Aburto INTERNET MARKETING DIRECTOR-CRITICAL CARE PHYSICIAN Work Phone: [facility] Comment on above: Iron deficiency anem ia, unspecified iron deficiency anemia type (Primary Dx); Iron malabsorption (HHS-HCC) Start: 02-17-2024 End: 02-17-2024 ambulatory KIKO MALONEYGAVINO [facility] Start: 02-16-2024 End: 02-16-2024 ambulatory MATTHEW Oliver [facility] Start: 12-30-2023 End: 12-30-2023 ambulatory [facility] Ambulatory Start: 12-17-2023 End: 12-17-2023 ambulatory KIKO Desai [facility] Start: 12-14-2023 End: 12-14-2023 ambulatory [facility] Start: 12-11-2023 End: 12-11-2023 ambulatory [facility] Ambulatory Start: 10-10-2023 End: 10-10-2023 ambulatory [facility] Start: 10-10-2023 End: 10-10-2023 Encounter for general adult medical examination without abnormal findings [facility] Start: 09-16-2023 End: 09-16-2023 Office outpatient visit 15 minutes Kiko Aburto [facility] Work Phone: [facility] Comment on above: Iron deficiency anem ia due to chronic blood loss (Primary Dx); Iron deficiency anemia, unspecified iron deficiency anemia type; Iron malabsorption (HHS-HCC) Start: 09-16-2023 End: 09-16-2023 ambulatory KIKO Desai [facility] Start: 09-15-2023 End: 09-15-2023 ambulatory MATTHEW Oliver [facility] Start: 09-04-2023 End: 09-04-2023 ambulatory [facility] Ambulatory Start: 09-01-2023 End: 09-01-2023 ambulatory [facility] Start: 09-01-2023 End: 09-01-2023 Office outpatient visit 25 minutes Padma Orozco MD Work Phone: [facility] Comment on above: Crohn's disease of s mall and large intestines with complication (Multi) (Primary Dx) Start: 08-25-2023 End: 08-25-2023 ambulatory [facility] Ambulatory Start: 08-25-2023 End: 08-25-2023 Encounter for general adult medical examination without abnormal findings [facility] Ambulatory Start: 07-15-2023 End: 07-15-2023 ambulatory KIKO ABURTO [facility] Start: 07-15-2023 End: 07-15-2023 Office outpatient visit 25 minutes Kiko Aburto INTERNET MARKETING DIRECTOR-CRITICAL CARE PHYSICIAN Work Phone: [facility] Comment on above: Iron deficiency anem ia, unspecified iron deficiency anemia type Start: 07-14-2023 End: 07-14-2023 ambulatory [facility] Start: 04-22-2023 End: 04-22-2023 Office outpatient visit 15 minutes Cherelle Zarate MD Work Phone: [facility] Comment on above: Nasal vestibulitis ( Primary Dx) Start: 04-22-2023 End: 04-22-2023 ambulatory CHERELLE ZARATE [facility] Ambulatory Start: 04-13-2023 End: 04-13-2023 ambulatory [facility] Start: 04-06-2023 End: 04-06-2023 ambulatory [facility] Start: 03-31-2023 End: 03-31-2023 ambulatory [facility] Start: 03-27-2023 End: 03-27-2023 ambulatory [facility] Start: 03-13-2023 End: 03-13-2023 ambulatory [facility] Start: 03-13-2023 End: 03-13-2023 Office outpatient visit 25 minutes Mariia Bernal PA-C Work Phone: [facility] Comment on above: Iron deficiency anem ia, unspecified iron deficiency anemia type (Primary Dx); Iron malabsorption; Iron deficiency anemia due to chronic blood loss Start: 03-10-2023 End: 03-10-2023 ambulatory [facility] Start: 02-17-2023 End: 02-17-2023 Office outpatient visit 15 minutes Scarlett Martin INTERNET MARKETING DIRECTOR-CRITICAL CARE PHYSICIAN Work Phone: [facility] Comment on above: Crohn's disease of b oth small and large intestine without complication (CMS/HCC) (Primary Dx) Start: 01-23-2023 AUDIT Matthew Baron as Work Phone: TB-Momholeorznel-TNF [place] [address] Work Phone: Start: 01-07-[address] Matthew Orozco Facility:[id number] Start: 12-11-[address] Abdullahi Bonilla Facil ity:[id number] Start: 12-11-2022 Patient encounter procedure Matthew Orozco Work Phone: WZ-Gxygmaqdfghzpp-Pze spike [facility] 250 Work Phone: Start: 11-11-2022 ambulatory Ms. Mariia Bernal Facility:[facility] Start: 11-10-[address] Matthew Orozco Facility:[id number] Start: 11-10-2022 ambulatory Mariia Bernal Facility:[id number] Start: 09-29-2022 Rx Renewal Matthew Baron as Work Phone: [facility] Work Phone: Start: 09-09-[address] Abdullahi Bonilla Facil ity:[id number] Start: 09-05-[address] Tom Millard acility:[id number] Start: 08-28-2022 Chart Update Matthew Baron as Work Phone: [facility] Work Phone: Start: 08-19-[address] Padma Orozco Facility:[id number] Start: 08-19-2022 Office outpatient vi sit 25 minutes Matthew Orozco Work Phone: [facility] Work Phone: Start: 08-01-[address] Tom Millard acility:[id number] Start: 08-01-2022 Patient encounter procedure Matthew Orozco Work Phone: JX-Yjvwcrlmquduq-Mmil [place] [address] Work Phone: Start: 07-03-2022 End: 07-03-[address] ELVIRA LISTED REQUEST Facility:H1 Start: 06-23-[address] Tom Millard acility:[id number] Start: 06-02-2022 Rx Renewal Matthew Baron as Work Phone: [facility] Work Phone: Start: 05-27-[address] Abdullahi Bonilla Facil ity:[id number] Start: 05-27-2022 Patient encounter procedure Matthew Orozco Work Phone: WR-Nwxtdxvcpotvyt-Znn [place] [address] Work Phone: Start: 05-13-2022 ambulatory Ms. Lita Millard acility:[facility] Start: 05-09-2022 Chart Update Matthew Baron as Work Phone: [facility] Work Phone: Start: 05-01-[address] Matthew Orozco Facility:[facility] Start: 05-01-[address] Matthew Orozco Facility:[id number] Start: 04-24-2022 ambulatory Mariia Bernal Facility:[id number] Start: 04-21-2022 ambulatory Mariia Bernal Facility:[id number] Start: 04-14-2022 Rx Renewal Matthew Baron as Work Phone: [facility] Work Phone: Start: 03-20-2022 AUDIT Matthew Baron as Work Phone: [facility] Work Phone: Start: 01-21-[address] Abdullahi Bonilla Facil ity:[id number] Start: 01-21-2022 Patient encounter procedure Matthew Orozco Work Phone: AB-Yxtbrfycgcbgzg-Ece [place] [address] Work Phone: Start: 12-26-2021 Chart Update Matthew Baron as Work Phone: [facility] Work Phone: Start: 12-25-[address] Tom Millard acility:[id number] Start: 12-23-2021 ambulatory Ms. Lita Millard acility:[facility] Start: 12-18-2021 AUDIT Matthew Baron as Work Phone: NB-Fkpolmlewmwnj-IHR [place] [address] Work Phone: Start: 12-09-2021 Chart Update Matthew Oliver Tod as Work Phone: FL-Qywpzszhmrzwa-QWB [place] [address] Work Phone: Start: 11-27-2021 Chart Update Matthew Baron as Work Phone: [facility] Work Phone: Start: 11-26-2021 Office outpatient vi sit 25 minutes Matthew Orozco Work Phone: [facility] Work Phone: Start: 10-30-2021 AUDIT Matthew Melody Tod as Work Phone: TP-Idvstkokwrurt-NYQ [place] [address] Work Phone: Start: 10-28-2021 Chart Update Matthew A Tod as Work Phone: NY-Bstucbgjqrqje-VCD [place] [address] Work Phone: Start: 10-23-2021 End: 10-23-[address] DANAE FERRARO . Facility: Start: 10-15-2021 AUDIT Matthew Baron as Work Phone: BJ-Lcijbepgnkzpd-ZAE [place] [address] Work Phone: Start: 10-09-2021 AUDIT Matthew Baron as Work Phone: [facility] Work Phone: Start: 10-09-2021 End: 10-23-[address] DANAE FERRARO . Facility:H1 Start: 10-08-2021 Patient encounter procedure Matthew Orozco Work Phone: AD-Iornyzolbsqzwv-Yfq [place] [address] Work Phone: Start: 10-02-2021 End: 10-03-[address] MENA CHERY . Facility:H1 Start: 09-30-[address] DANAE FERRARO . Fa cility:H1 Start: 09-25-2021 AUDIT Matthew Baron as Work Phone: FC-Hoosqdpipihiv-LIJ [employer] [address] Work Phone: Start: 09-24-2021 Encounter for preprocedural laboratory examination DR DANAE FERRARO . [facility] Start: 09-23-2021 End: 09-26-2021 Evaluation and management of inpatient DR DANAE FERRARO . Facility:H1 Start: 09-20-2021 End: 09-21-2021 ambulatory NONE LISTED REQUEST Facility:H1 Start: 09-20-2021 End: 09-21-2021 Encounter for preprocedural laboratory examination NONE LISTED REQUEST Facility: Start: 09-09-2021 Rx Renewal Matthew Baron as Work Phone: [facility] Work Phone: Start: 09-09-2021 Chart Update Matthew Baron as Work Phone: [facility] Work Phone: Start: 09-05-2021 Chart Update Matthew Baron as Work Phone: JB-Nsgryzaldhxyf-JYS [place] [address] Work Phone: Start: 09-04-2021 Chart Update Matthew Baron as Work Phone: [facility] Work Phone: Start: 09-04-2021 End: 09-04-[address] DANAE FERRARO . Facility:H1 Start: 08-26-2021 Chart Update Matthew Oliver Tod as Work Phone: QF-Yqyvyslltnqfn-OCQ [place] [address] Work Phone: Start: 08-22-2021 Chart Update Matthew Oliver Tod as Work Phone: YE-Egtatbnfgulgz-DFS [place] [address] Work Phone: Start: 08-13-2021 Rx Renewal Matthew Oliver Tod as Work Phone: [facility] Work Phone: Start: 07-19-2021 Encounter for gynecological examination (general) (routine) without abnormal findings DR DANAE FERRARO . [facility] Start: 07-18-2021 End: 07-18-[address] DANAE FERRARO . Facility:H1 Start: 07-18-2021 End: 07-18-2021 Encounter for gynecological examination (general) (routine) without abnormal findings DR DANAE FERRARO . 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 Piedad e Melody Orozco Work Phone: FL-Hxshotcfzqkxe-RVZ [place] [address] Work Phone: Start: 05-27-2021 AUDIT Matthew Oliver Tod as Work Phone: EU-Uhmbwfydzmumr-MCK [place] [address] Work Phone: Start: 05-13-2021 AUDIT Matthew Baron as Work Phone: LM-Lhvifjwgjmswb-LES [place] [address] Work Phone: Start: 04-29-2021 AUDIT Matthew Baron as Work Phone: AN-Umtcvcxrvecrd-HDS [place] [address] Work Phone: Start: 04-24-2021 Office outpatient vi sit 25 minutes Matthew Melody Orozco Work Phone: MR-Lgyfdccd-Trvoud [place] [address] Work Phone: Start: 03-27-2021 End: 03-28-2021 ambulatory OLIVIA Perry [facility] Start: 03-26-2021 Office outpatient vi sit 15 minutes Matthew Orozco Work Phone: GL-Rstsqlsotqkabh-Rlv dman [employer] Work Phone: Start: 11-20-2020 Office outpatient vi sit 15 minutes Matthew Oliver Ernesto Work Phone: GJ-Kxddezxhveexgc-Lcz [place] Work Phone: Start: 11-05-2020 Chart Update Matthew Baron as Work Phone: [facility] [place] Work Phone: Start: 06-28-2020 Patient encounter procedure Scarlett Martin UD-Hvoskcweckvam-GFZ [place] [address] Work Phone: Start: 06-19-2020 Patient encounter procedure Scarlett Martin SA-Fbdpjnyxqxwpt-DYY [place] [address] Work Phone: Start: 05-25-2020 Patient encounter procedure Scarlett Martin JP-Rptkbeeeqzyur-JFK [place] [address] Work Phone: Start: 04-23-2020 Patient encounter procedure Scarlett Martin FH-Eqvxecaivydef-IGS [place] [address] Work Phone: Start: 02-21-2020 Patient encounter procedure Baha Arafah DO-Lqgvofsussyts-UEI [place] [address] Work Phone: Start: 01-17-2020 Patient encounter procedure Baha Arafah RT-Ykvdlgbqrpkcu-YLC [place] [address] Work Phone: Start: 01-10-2020 Patient encounter procedure Baha Arafah QI-Sysnunuppiihv-KQW [place] [address] Work Phone: Start: 10-31-2019 Patient encounter procedure Baha Arafah GH-Wiobfqxpvkhdj-QRJ [place] [address] Work Phone: Start: 10-25-2019 Patient encounter procedure Baha Arafah SO-Goopetyzaxqsf-IDA [place] [address] Work Phone: Start: 10-11-2019 Patient encounter procedure Baha Arafah RG-Abwgwjhhqvocv-CUA [place] [address] Work Phone: Start: 09-06-2019 Patient encounter procedure Scarlett Martin [facility] Work Phone: Start: 07-12-2019 Patient encounter procedure Scarlett Martin [facility] Work Phone: Start: 06-07-2019 Patient encounter procedure Padma Orozco [facility] Work Phone: Start: 05-31-2019 Patient encounter procedure Padma Orozco [facility] Work Phone: Start: 05-02-2019 Patient encounter procedure Padma Orozco [facility] Work Phone: Start: 04-27-2019 Patient encounter procedure Padma Orozco [facility] Work Phone: Start: 04-12-2019 Patient encounter procedure Padma Orozco [facility] Work Phone: Start: 03-29-2019 Patient encounter procedure Padma Orozco [facility] Work Phone: Start: 02-25-2019 Patient encounter procedure Padma Orozco [facility] Work Phone: Start: 02-10-2019 Patient encounter procedure Padma Orozco [facility] [place] Work Phone: Start: 02-08-2019 Patient encounter procedure Padma Orozco [facility] Work Phone: Start: 02-04-2019 Patient encounter procedure Padma Orozco [facility] [place] Work Phone: Start: 12-21-2018 Patient encounter procedure Padma Orozco -[facility] [place] Work Phone: Start: 11-30-2018 Patient encounter procedure Padma Orozco [facility] [place] Work Phone: Start: 11-24-2018 Patient encounter procedure Padma Orozco [facility] [place] Work Phone: Start: 11-16-2018 Patient encounter procedure Padma Orozco [facility] Work Phone: Start: 10-29-2018 Patient encounter procedure Padma Orozco [facility] [place] Work Phone: Start: 10-26-2018 Patient encounter procedure Padma Orozco [facility] Work Phone: Start: 10-14-2018 Patient encounter procedure Padma Orozco [facility] Work Phone: Start: 10-12-2018 Patient encounter procedure Padma Orozco [facility] Work Phone: Start: 09-27-2018 Patient encounter procedure Mary Giselle. Martinez [place] Start: 09-21-2018 Patient encounter procedure Padma Orozco ZT-Odkouwcxzwjlfn-Aph [place] Work Phone: Start: 09-16-2018 Patient encounter procedure Padma Orozco [facility] Work Phone: Start: 08-31-2018 Patient encounter procedure Padma Orozco [facility] Work Phone: Start: 08-30-2018 Patient encounter procedure Padma Orozco [facility] Work Phone: Start: 08-27-2018 Patient encounter procedure Padma Orozco [facility] Work Phone: Start: 08-20-2018 Patient encounter procedure Padma Orozco [facility] Work Phone: Start: 07-27-2018 Patient encounter procedure Padma Orozco [facility] Work Phone: Start: 07-20-2018 Patient encounter procedure Padma Orozco [facility] Work Phone: Start: 07-20-2018 Patient encounter procedure MATTHEW OROZCO Facility:[id number] Start: 07-20-2018 Patient encounter procedure Padma Orozco [facility] Work Phone: Start: 07-16-2018 Patient encounter procedure Padma Orozco [facility] Work Phone: Start: 07-13-2018 Patient encounter procedure Padma Orozco [facility] Work Phone: Start: 07-09-2018 Patient encounter procedure Padma Orozco [facility] Work Phone: Start: 06-08-2018 Patient encounter procedure Padma Orozco [facility] Work Phone: Start: 06-03-2018 Patient encounter procedure Padma Orozco [facility] Work Phone: Start: 05-28-2018 Patient encounter procedure Padma Orozco [facility] Work Phone: Start: 04-20-2018 Patient encounter procedure Padma Orozco [facility] Work Phone: Start: 04-17-2018 Patient encounter procedure Lita Iqbal [place] Start: 03-30-2018 Patient encounter procedure Padma Orozco [facility] Work Phone: Start: 03-29-2018 End: 04-16-2018 Patient encounter procedure Family Physician Chuck [place] Start: 01-07-2018 Patient encounter procedure Padma Orozco [facility] Work Phone: Start: 10-20-2017 Patient encounter procedure Padma Orozco [facility] Work Phone: Start: 10-16-2017 Patient encounter procedure Russ Salmeron [place] Start: 09-28-2017 End: 10-15-2017 Patient encounter procedure Russ Salmeron [place] Start: 09-15-2017 Patient encounter procedure PADMA OROZCO Facility:[facility] Start: 09-08-2017 Patient encounter procedure PADMA OROZCO Facility:[facility] Start: 08-25-2017 Patient encounter procedure Padma Orozco [facility] Work Phone: Start: 07-09-2017 Patient encounter procedure Padma Orozco [facility] Work Phone: Start: 05-27-2017 Patient encounter procedure Padma Orozco [facility] Work Phone: Start: 05-25-2017 Patient encounter procedure Padma Orozco [facility] Work Phone: Start: 05-05-2017 Patient encounter procedure Padma Orozco [facility] Work Phone: Start: 04-22-2017 Patient encounter procedure Padma Orozco [facility] Work Phone: Start: 04-13-2017 Patient encounter procedure Padma Orozco [facility] Work Phone: Start: 02-11-2017 Patient encounter procedure Padma Orozco [facility] Work Phone: Start: 02-09-2017 Patient encounter procedure Padma Orozco [facility] Work Phone: Start: 02-04-2017 Patient encounter procedure Padma Orozco [facility] Work Phone: Start: 01-08-2017 Patient encounter procedure Padma Orozco [facility] Work Phone: Start: 12-01-2016 Patient encounter procedure Padma Orozco [facility] Work Phone: Start: 11-26-2016 Patient encounter procedure Padma Orozco [facility] Work Phone: Start: 10-14-2016 Patient encounter procedure Padma Orozco [facility] Work Phone: Start: 10-01-2016 Patient encounter procedure Padma Orozco [facility] Work Phone: Patient encounter procedure Matthew Melody Ernesto Work Phone: MW-Vqatiirwzrbol-ATF [place] [address] Work Phone: Procedures Date Procedure Procedure Detail Performing Clinician Start: 12-11-2023 Thyrotropin [Units/v olume] in Serum or Plasma Kiko Aburto INTERNET MARKETING DIRECTOR-CRITICAL CARE PHYSICIAN Work Phone: Start: 10-10-2023 Lipid 1996 panel - S delmar or Plasma Kiko Aburto INTERNET MARKETING DIRECTOR-CRITICAL CARE PHYSICIAN Work Phone: Start: 09-16-2023 ONCBCN CLINIC APPOIN TMENT REQUEST KIKO ABURTO Start: 09-15-2023 CBC W Auto Different ial panel - Blood KIKO ABURTO Start: 09-15-2023 Comprehensive metabo lic 2000 panel - Serum or Plasma KIKO ABURTO Start: 09-15-2023 Ferritin [Mass/volum e] in Serum or Plasma KIKO ABURTO Start: 09-15-2023 IRON AND TIBC KIKO GAVIRIA Start: 09-15-2023 THIOPURINE METABOLIT ES BY LC-MS/MS KIKO ABURTO Start: 09-04-2023 OCT, RETINA - OU - BOTH EYES CHERELLE ZARATE Start: 09-01-2023 C-reactive protein JENIFER N LEAVERTON Start: 09-01-2023 CBC panel - Blood by Automated count KIKO LEAVERTON Start: 09-01-2023 IRON AND TIBC KIKO GAVIRIA Start: 09-01-2023 SEDIMENTATION RATE, AUTOMATED KIKO LEAVERTON Start: 09-01-2023 T-SPOT TB KIKO NAJERA Start: 09-01-2023 TPMT ENZYMES KIKO SNELL ERTGAVINO Start: 07-15-2023 ONCBCN CLINIC APPOIN TMENT REQUEST KIKO LEAVERTON Start: 07-14-2023 CBC W Auto Different ial panel - Blood MATTHEW OROZCO Start: 07-14-2023 Cyanocobalamin vitamin b-12 MATTHEW OROZCO Start: 07-14-2023 Ferritin [Mass/volum e] in Serum or Plasma MATTHEW OROZCO Start: 07-14-2023 IRON AND TIBC MATTHEW Hopper HOMAS Start: 04-13-2023 CENTRAL VENOUS LINE DRESSING CHANGE - ADULT KIKO LEAVERTON Start: 04-13-2023 CONVERT IV TO SALINE LOCK KIKO LEAVERTON Start: 04-13-2023 INSERT PERIPHERAL IV RO LEVON LEAVERTON Start: 04-13-2023 ONC NURSING COMMUNIC ATION - VASCULAR ACCESS KIKO LEAVERTON Start: 04-13-2023 VENOUS ACCESS, CVAD CLAUDIA EN LEAVERTON Start: 04-13-2023 ONC NURSING COMMUNIC ATION - HYPERSENSITIVITY MANAGEMENT, MODERATE KIKO LEAVERTON Start: 04-13-2023 ONC NURSING COMMUNIC ATION - IRON SUCROSE KIKO LEAVERTON Start: 04-13-2023 PULSE OXIMETRY, CONTINUOUS KIKO LEAVERTON Start: 04-13-2023 ONCBCN INFUSION APPO INTMENT REQUEST KIKO LEAVERTON Start: 04-06-2023 ONC NURSING COMMUNIC ATION - HYPERSENSITIVITY MANAGEMENT, MODERATE KIKO LEAVERTON Start: 04-06-2023 ONC NURSING COMMUNIC ATION - IRON SUCROSE KIKO LEAVERTON Start: 04-06-2023 PULSE OXIMETRY, CONTINUOUS KIKO LEAVERTON Start: 04-06-2023 ONCBCN INFUSION APPO INTMENT REQUEST 04 KIKO LEAVERTON Start: 03-31-2023 ONC NURSING COMMUNIC ATION - HYPERSENSITIVITY MANAGEMENT, MODERATE KIKO LEAVERTON Start: 03-31-2023 ONC NURSING COMMUNIC ATION - IRON SUCROSE KIKO LEAVERTON Start: 03-31-2023 PULSE OXIMETRY, CONTINUOUS KIKO LEAVERTON Start: 03-31-2023 ONCBCN INFUSION APPO INTMENT REQUEST 04 KIKO LEAVERTON Start: 03-27-2023 CENTRAL VENOUS LINE DRESSING CHANGE - ADULT KIKO LEAVERTON Start: 03-27-2023 CONVERT IV TO SALINE LOCK KIKO LEAVERTON Start: 03-27-2023 INSERT PERIPHERAL IV RO LEVON LEAVERTON Start: 03-27-2023 ONC NURSING COMMUNIC ATION - VASCULAR ACCESS KIKO LEAVERTON Start: 03-27-2023 VENOUS ACCESS, CVAD CLAUDIA EN LEAVERTON Start: 03-27-2023 ONCBCN INFUSION APPO INTMENT REQUEST 04 KIKO LEAVERTON Start: 03-13-2023 Follow-up visit Follow-up MARIIA BERNAL Start: 03-10-2023 PST TOP MATTHEW MONTANA OM Start: 03-10-2023 CBC W Auto Different ial panel - Blood MATTHEW OROZCO Start: 03-10-2023 Ferritin [Mass/volum e] in Serum or Plasma MATTHEW OROZCO Start: 03-10-2023 HIGH SENSITIVITY CRP NA KETAN OROZCO Start: 03-10-2023 SEDIMENTATION RATE, AUTOMATED MATTHEW OROZCO Start: 03-10-2023 Assay of iron Mariia Silver Work Phone: Start: 05-01-2022 Colonoscopy Matthew Orozco Work Phone: Start: 11-26-2021 Thyrotropin [Units/v olume] in Serum or Plasma Mariia Bernal PA-C Work Phone: Start: 09-23-2021 Extraction of Produc ts of Conception, Low Cervical, Open Approach DR ADNAE FERRARO . Start: 09-23-2021 Resection of Bilater al Fallopian Tubes, Open Approach DR DANAE FERRARO . Start: 06-19-2020 Anser ADA Scarlett Tammyjumana y Start: 06-19-2020 Assay of ferritin Scarlett Martin Start: 06-19-2020 Blood count complete auto&auto difrntl wbc Scarlett Tammyjoanna Start: 06-19-2020 C-reactive protein Scarlett Veronica Start: 06-19-2020 Comprehensive metabo lic 2000 panel Scarlett Martin Start: 06-19-2020 Iron + TIBC, Serum Scarlett Martin Start: 06-19-2020 Sedimentation rate r bc automated Scarlett Martin Start: 05-25-2020 Assay of free thyroxine Scarlett Martin Start: 05-25-2020 Assay of parathormone M aleksey Martin Start: 05-25-2020 Assay of thyroid sti mulating hormone tsh Scarlett Martin Start: 05-25-2020 Renal function panel Ma mi Martin Start: 02-21-2020 [facility] Start: 02-21-2020 Assay of thyroid sti [facility]ulating hormone [facility] Start: 09-06-2019 Anser ADA Scarlett el Start: 09-06-2019 Assay of folic acid serum Scarlett Martin Start: 09-06-2019 C-reactive protein Scarlett Martin Start: 09-06-2019 Comprehensive metabo lic 2000 panel Scarlett Martin Start: 09-06-2019 Cyanocobalamin vitamin b-12 Scarlett Martin Start: 09-06-2019 Sedimentation rate r bc automated Scarlett Martin Start: 06-01-2019 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 Padma Orozco Start: 05-31-2019 Removal impacted cer umen instrumentation unilat Padma Orozco Start: 03-29-2019 Calprotectin, Fecal Sarah shabnam Orozco Start: 03-29-2019 Hepatitis b core ant ibody hbcab total Padma Orozco Start: 03-29-2019 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 Padma Orozco Start: 09-21-2018 CT Sinuses Without C ontrast Volumetric Surgical Planning Padma Orozco Start: 04-22-2017 Microscopic observat ion [Identifier] in Cervix by Cyto stain Mariia Bernal PA-C Work Phone: History Of Prior Surgery Sarah Orozco Right hemicolectomy and end to end anastomosis of ileum to colon Padma Orozco Plan of Treatment Date Care Activity Detail Author Start: 2050 RSV patient s and/or patients aged 60+ years (1 - 1-dose 60+ series) RSV patients and/or patients aged 60+ years (1 - 1-dose 60+ series) [facility] Start: 04-09-2030 DTaP/Tdap/Td Vaccine s (3 - Td or Tdap) DTaP/Tdap/Td Vaccines (3 - Td or Tdap) [facility] Start: 10-09-2028 Lipid panel Lipid Panel [facility] Start: 12-13-2024 Cyanocobalamin vitam in b-12 Vitamin B-12 [facility] Start: 12-10-2024 Thyroid stimulating hormone measurement TSH Level [facility] Start: 10-19-2024 End: 10-19-2024 Patient encounter procedure 10/19/2024 1:30 PM EDT [facility] [address] [facility] [address] [place] [id number] [place] [address] [facility] [address] [place] [address] [facility] Start: 08-30-2024 End: 08-30-2024 Patient encounter procedure 08/30/2024 9:40 AM EDT Office Visit [facility] [address] [facility] [address] [place] [address] [place] [address] [facility] [address] [place] [address] [facility] Start: 08-26-2024 End: 08-26-2024 Patient encounter procedure 08/26/2024 9:00 AM EDT [facility] [address] [facility] [address] [place] [id number] [place] [address] [facility] [address] [place] [address] [facility] Start: 08-25-2024 Yearly Adult Physical Yearly Adult P hysical [facility] Start: 08-19-2024 End: 08-19-2024 Patient encounter procedure 08/19/2024 8:00 AM EDT Office Visit [facility] [address] [facility] [address] [place] [address] Kiko Aburto, INTERNET MARKETING DIRECTOR-CRITICAL CARE PHYSICIAN [address] [facility] [address] [place] [address] [facility] Start: 08-17-2024 End: 02-16-2025 CBC W Auto Differential panel - Blood CBC and Auto Differential Lab Routine Iron deficiency anemia, unspecified iron deficiency anemia type Iron malabsorption (HHS-HCC) Expected: 08/17/2024, Expires: 02/16/2025 [facility] Work Phone: Comment on above: Expected: 08/17/2024 , Expires: 02/16/2025 Start: 08-17-2024 End: 02-16-2025 Cobalamin (Vitamin B12) [Mass/volume] in Serum or Plasma Vitamin B12 Lab Routine Iron deficiency anemia, unspecified iron deficiency anemia type Iron malabsorption (HHS-HCC) Expected: 08/17/2024, Expires: 02/16/2025 [facility] Work Phone: Comment on above: Expected: 08/17/2024 , Expires: 02/16/2025 Start: 08-17-2024 End: 02-16-2025 Ferritin [Mass/volume] in Serum or Plasma Ferritin Lab Routine Iron deficiency anemia, unspecified iron deficiency anemia type Iron malabsorption (HHS-HCC) Expected: 08/17/2024, Expires: 02/16/2025 [facility] Work Phone: Comment on above: Expected: 08/17/2024 , Expires: 02/16/2025 Start: 08-17-2024 End: 02-16-2025 Iron and Iron binding capacity panel - Serum or Plasma Iron and TIBC Lab Routine Iron deficiency anemia, unspecified iron deficiency anemia type Iron malabsorption (HHS-HCC) Expected: 08/17/2024, Expires: 02/16/2025 [facility] Work Phone: Comment on above: Expected: 08/17/2024 , Expires: 02/16/2025 Start: 08-17-2024 End: 08-17-2024 ambulatory 08/17/2024 12:00 PM EDT Lab [facility] [facility] [id number] [place] [address] [place] [address] [facility] Dr [facility] Start: 07-14-2024 Cyanocobalamin vitam in b-12 Vitamin B-12 [facility] Start: 05-25-2024 End: 02-16-2025 CBC W Auto Differential panel - Blood CBC and Auto Differential Lab Routine Iron deficiency anemia, unspecified iron deficiency anemia type Iron malabsorption (HHS-HCC) Expected: 05/25/2024, Expires: 02/16/2025 [facility] Service Area Work Phone: Comment on above: Expected: 05/25/2024 , Expires: 02/16/2025 Start: 05-25-2024 End: 02-16-2025 Ferritin [Mass/volume] in Serum or Plasma Ferritin Lab Routine Iron deficiency anemia, unspecified iron deficiency anemia type Iron malabsorption (HHS-HCC) Expected: 05/25/2024, Expires: 02/16/2025 [facility] Work Phone: Comment on above: Expected: 05/25/2024 , Expires: 02/16/2025 Start: 05-25-2024 End: 02-16-2025 Iron and Iron binding capacity panel - Serum or Plasma Iron and TIBC Lab Routine Iron deficiency anemia, unspecified iron deficiency anemia type Iron malabsorption (HHS-HCC) Expected: 05/25/2024, Expires: 02/16/2025 [facility] Work Phone: Comment on above: Expected: 05/25/2024 , Expires: 02/16/2025 Start: 05-25-2024 End: 05-25-2024 ambulatory 05/25/2024 12:00 PM EST Lab [facility] Dr [facility] [address] [place] [address] [place] [address] [facility] Dr [facility] Start: 03-31-2024 Superficial Wound Culture Superficial Wound Culture [facility] Start: 03-04-2024 End: 03-04-2024 Patient encounter procedure 03/04/2024 9:00 AM EDT Office Visit [facility] [address] [facility] [address] [place] [address] [place] [address] [address] Department [place] [address] [facility] Start: 03-02-2024 End: 03-02-2025 Thiopurine Metabolites by LC-MS/MS (6MMP) [facility] Service Area Work Phone: Comment on above: Expected: 03/02/2024 (Approximate), Expires: 03/02/2025 Start: 03-02-2024 End: 03-02-2024 Patient encounter procedure 03/02/2024 9:30 AM EDT Office Visit [facility] [address] [facility] [address] [place] [phone] Binu Baldwin, INTERNET MARKETING DIRECTOR-CRITICAL CARE PHYSICIAN [address] [facility] [address] [place] [address] [facility] Start: 01-17-2024 Influenza vaccination [facility] Start: 12-30-2023 End: 12-30-2023 Patient encounter procedure 12/30/2023 8:20 AM EDT Office Visit [facility] [place] [address] [address] [place] [address] [place] [id number] [place] [address] [address] Department of [place] [address] [facility] Start: 12-17-2023 End: 09-15-2024 CBC W Auto Differential panel - Blood CBC and Auto Differential Lab Routine Iron deficiency anemia, unspecified iron deficiency anemia type Iron deficiency anemia due to chronic blood loss Iron malabsorption ([facility]-HCC) Expected: 12/17/2023, Expires: 09/15/2024 [facility] Work Phone: Comment on above: Expected: 12/17/2023 , Expires: 09/15/2024 Start: 12-17-2023 End: 09-15-2024 Cobalamin (Vitamin B12) [Mass/volume] in Serum or Plasma Vitamin B12 Lab Routine Iron deficiency anemia, unspecified iron deficiency anemia type Iron deficiency anemia due to chronic blood loss Iron malabsorption (HHS-HCC) Expected: 12/17/2023 (Approximate), Expires: 09/15/2024 [facility] Work Phone: Comment on above: Expected: 12/17/2023 (Approximate), Expires: 09/15/2024 Start: 12-17-2023 End: 09-15-2024 Comprehensive metabolic 2000 panel - Serum or Plasma Comprehensive metabolic panel Lab Routine Iron deficiency anemia, unspecified iron deficiency anemia type Iron deficiency anemia due to chronic blood loss Iron malabsorption (HHS-HCC) Expected: 12/17/2023 (Approximate), Expires: 09/15/2024 [facility] Service Area Work Phone: Comment on above: Expected: 12/17/2023 (Approximate), Expires: 09/15/2024 Start: 12-17-2023 End: 09-15-2024 Ferritin [Mass/volume] in Serum or Plasma Ferritin Lab Routine Iron deficiency anemia, unspecified iron deficiency anemia type Iron deficiency anemia due to chronic blood loss Iron malabsorption (HHS-HCC) Expected: 12/17/2023 (Approximate), Expires: 09/15/2024 [facility] Work Phone: Comment on above: Expected: 12/17/2023 (Approximate), Expires: 09/15/2024 Start: 12-17-2023 End: 09-15-2024 Iron and Iron binding capacity panel - Serum or Plasma Iron and TIBC Lab Routine Iron deficiency anemia, unspecified iron deficiency anemia type Iron deficiency anemia due to chronic blood loss Iron malabsorption (HHS-HCC) Expected: 12/17/2023, Expires: 09/15/2024 [facility] Work Phone: Comment on above: Expected: 12/17/2023 , Expires: 09/15/2024 Start: 09-16-2023 End: 09-16-2023 Patient encounter procedure 09/16/2023 8:00 AM EDT Office Visit [facility] [address] [facility] [address] [place] [address] LeaveKiko amin, INTERNET MARKETING DIRECTOR-CRITICAL CARE PHYSICIAN [id number] [place] [address] Dr [address] [place] [address] [facility] Start: 09-14-2023 End: 09-14-2023 ambulatory 09/14/2023 11:40 AM EDT Lab [facility] [address] [place] [address] [place] [address] [facility] Start: 09-13-2023 End: 07-15-2024 CBC W Auto Differential panel - Blood CBC and Auto Differential Lab Routine Iron deficiency anemia, unspecified iron deficiency anemia type Expected: 09/13/2023, Expires: 07/15/2024 [facility] Service Area Work Phone: Comment on above: Expected: 09/13/2023 , Expires: 07/15/2024 Start: 09-13-2023 End: 07-15-2024 Comprehensive metabolic 2000 panel - Serum or Plasma Comprehensive metabolic panel Lab Routine Iron deficiency anemia, unspecified iron deficiency anemia type Expected: 09/13/2023 (Approximate), Expires: 07/15/2024 [facility] Work Phone: Comment on above: Expected: 09/13/2023 (Approximate), Expires: 07/15/2024 Start: 09-13-2023 End: 07-15-2024 Ferritin [Mass/volume] in Serum or Plasma Ferritin Lab Routine Iron deficiency anemia, unspecified iron deficiency anemia type Expected: 09/13/2023 (Approximate), Expires: 07/15/2024 [facility] Work Phone: Comment on above: Expected: 09/13/2023 (Approximate), Expires: 07/15/2024 Start: 09-13-2023 End: 07-15-2024 Iron and Iron binding capacity panel - Serum or Plasma Iron and TIBC Lab Routine Iron deficiency anemia, unspecified iron deficiency anemia type Expected: 09/13/2023, Expires: 07/15/2024 [facility] Work Phone: Comment on above: Expected: 09/13/2023 , Expires: 07/15/2024 Start: 09-04-2023 End: 09-04-2023 Patient encounter procedure 09/04/2023 9:00 AM EDT Office [facility] [address] [facility] [address] [place] [address] [place] [address] [place] [address] [facility] Start: 09-01-2023 End: 08-31-2024 C reactive protein [Mass/volume] in Serum or Plasma [facility] Work Phone: Comment on above: Expected: 09/01/2023 (Approximate), Expires: 08/31/2024 Start: 09-01-2023 End: 08-31-2024 CBC panel - Blood by Automated count [facility] Service Area Work Phone: Comment on above: Expected: 09/01/2023 (Approximate), Expires: 08/31/2024 Start: 09-01-2023 End: 08-31-2024 Erythrocyte sedimentation rate [facility] Work Phone: Comment on above: Expected: 09/01/2023 (Approximate), Expires: 08/31/2024 Start: 09-01-2023 End: 08-31-2024 Iron and Iron binding capacity panel - Serum or Plasma [facility] Work Phone: Comment on above: Expected: 09/01/2023 (Approximate), Expires: 08/31/2024 Start: 09-01-2023 End: 08-31-2024 Mycobacterium tuberculosis stimulated gamma interferon and spot count panel - Blood [facility] Work Phone: Comment on above: Expected: 09/01/2023 (Approximate), Expires: 08/31/2024 Start: 09-01-2023 End: 08-31-2024 TPMT Enzymes [facility] Work Phone: Comment on above: Expected: 09/01/2023 (Approximate), Expires: 08/31/2024 Start: 09-01-2023 End: 09-01-2023 Patient encounter procedure 09/01/2023 11:40 AM EDT Office Visit [facility] [address] [place] [address] [place] [address] [facility] [address] [place] [address] [facility] Start: 08-25-2023 End: 08-25-2023 Patient encounter procedure 08/25/2023 8:00 AM EDT Office Visit [facility] [address] [place] [phone] [place] [address] [place] [address] [facility] Start: 08-24-2023 Yearly Adult Physical Yearly Adult P hysical [facility] Start: 07-14-2023 End: 07-14-2023 Patient encounter procedure 07/14/2023 2:00 PM EST Office Visit [facility] [address] [facility] [address] [place] [phone] Mariia Bernal PA-C [id number] [place] [address] [address] [place] [id number] [facility] Start: 07-10-2023 End: 03-13-2024 CBC W Auto Differential panel - Blood CBC and Auto Differential Lab Routine Iron deficiency anemia, unspecified iron deficiency anemia type Expected: 07/10/2023 (Approximate), Expires: 03/13/2024 [facility] Work Phone: Comment on above: Expected: 07/10/2023 (Approximate), Expires: 03/13/2024 Start: 07-10-2023 End: 03-13-2024 Cobalamin (Vitamin B12) [Mass/volume] in Serum or Plasma Vitamin B12 Lab Routine Iron deficiency anemia, unspecified iron deficiency anemia type Expected: 07/10/2023 (Approximate), Expires: 03/13/2024 [facility] Service Area Work Phone: Comment on above: Expected: 07/10/2023 (Approximate), Expires: 03/13/2024 Start: 07-10-2023 End: 03-13-2024 Ferritin [Mass/volume] in Serum or Plasma Ferritin Lab Routine Iron deficiency anemia, unspecified iron deficiency anemia type Expected: 07/10/2023 (Approximate), Expires: 03/13/2024 [facility] Work Phone: Comment on above: Expected: 07/10/2023 (Approximate), Expires: 03/13/2024 Start: 07-10-2023 End: 09-11-2024 Iron and Iron binding capacity panel - Serum or Plasma Iron and TIBC Lab Routine Iron deficiency anemia, unspecified iron deficiency anemia type Expected: 07/10/2023 (Approximate), Expires: 09/11/2024 [facility] Work Phone: Comment on above: Expected: 07/10/2023 (Approximate), Expires: 09/11/2024 Start: 07-10-2023 End: 07-10-2023 Patient encounter procedure 07/10/2023 11:00 AM EST Office Visit [facility] [address] [facility] [address] [place] [phone] Mariia Bernal PA-C [address] [facility] [address] [place] [address] [facility] Start: 07-10-2023 End: 07-10-2023 ambulatory 07/10/2023 9:00 AM EST Lab [facility] Dr [facility] [address] [place] [address] [place] [address] [facility] Dr [facility] Start: 04-22-2023 FUV, Provider: Cherelle Zarate, Status: Pen, Time: 1:45 PM FUV, Provider: Cherelle Zarate, Status: Pen, Time: 1:45 PM TG-Ijpuvneevfpbbe-Pm stlake SJW 250 Work Phone: Start: 04-22-2023 End: 04-22-2023 Patient encounter procedure 04/22/2023 1:45 PM EST Office Visit [address] [place] [address] Cherelle Zarate MD [address] [place] [address] Dr [place], [facility] Start: 04-06-2023 End: 04-06-2023 ambulatory 04/06/2023 1:00 PM EST Infusion [facility] [address] [facility] [address] [place] [address] [facility] Start: 03-31-2023 End: 03-31-2023 ambulatory 03/31/2023 12:30 PM EST Infusion [facility] [address] [facility] [address] [place] [address] [facility] Start: 03-27-2023 End: 03-27-2023 ambulatory 03/27/2023 12:30 PM EST Infusion [facility] [address] [facility] [address] [place] [address] [facility] Start: 03-20-2023 End: 08-19-2023 Iron and Iron binding capacity panel - Serum or Plasma Iron and TIBC Lab Routine Crohn's disease of both small and large intestine without complication (CMS/HCC) Expected: 03/20/2023 (Approximate), Expires: 08/19/2023 [facility] Service Area Work Phone: Comment on above: Expected: 03/20/2023 (Approximate), Expires: 08/19/2023 Start: 03-20-2023 End: 02-18-2024 Thiopurine Metabolites by LC-MS/MS (6MMP) Thiopurine Metabolites by LC-MS/MS (6MMP) Lab Routine Crohn's disease of both small and large intestine without complication (CMS/HCC) Expected: 03/20/2023 (Approximate), Expires: 02/18/2024 [facility] Work Phone: Comment on above: Expected: 03/20/2023 (Approximate), Expires: 02/18/2024 Start: 03-06-2023 EPVRETINA, Provider: Tom Vasquez, Status: Pen, Time: 8:30 AM EPVRETINA, Provider: Tom Vasquez, Status: Pen, Time: 8:30 AM [facility] Work Phone: Start: 02-17-2023 FUV, Provider: Scarlett Martin, Status: Pen, Time: 9:00 AM FUV, Provider: Scarlett Martin, Status: Pen, Time: 9:00 AM [facility] Work Phone: Start: 01-16-2023 Influenza vaccination Influenza Vacc ine (#1) [facility] Start: 12-11-2022 FUV, Provider: Abdullahi Bonilla, Status: Pen, Time: 9:00 AM FUV, Provider: Abdullahi Bonilla, Status: Pen, Time: 9:00 AM [facility] Work Phone: Start: 11-26-2022 Cyanocobalamin vitam in b-12 Vitamin B-12 [facility] Start: 11-26-2022 Thyroid stimulating hormone measurement TSH Level [facility] Start: 09-09-2022 FUV, Provider: Abdullahi Bonilla, Status: Pen, Time: 1:00 PM FUV, Provider: Abdullahi Bonilla, Status: Pen, Time: 1:00 PM VH-Gzzuxnktsjwoax-Cv stlake [address]60 Work Phone: Start: 09-05-2022 EPVRETINA, Provider: Tom Vasquez, Status: Pen, Time: 8:30 AM EPVRETINA, Provider: Tom Vasquez, Status: Pen, Time: 8:30 AM HY-Qrkvujfdzmyls-Wmz well 3200 Work Phone: Start: 08-22-2022 PHYSICAL, Provider: Matthew Orozco, Status: Pen, Time: 9:00 AM PHYSICAL, Provider: Matthew Orozco, Status: Pen, Time: 9:00 AM EE-Ajckkyhkmehnu-VVK Luis M [address] Work Phone: Start: 08-19-2022 FUV, Provider: Padma Orozco, Status: Marcel, Time: 10:00 AM FUV, Provider: Padma Orozco, Status: Pen, Time: 10:00 AM QC-Ccekjtpltqjrd-Htb well 3[address] Work Phone: Start: 06-23-2022 EPVRETINA, Provider: Tom Vasquez, Status: Pen, Time: 8:15 AM EPVRETINA, Provider: Tom Vasquez, Status: Pen, Time: 8:15 AM [facility] Work Phone: Start: 05-27-2022 FUV, Provider: Abdullahi Bonilla, Status: Pen, Time: 11:45 AM FUV, Provider: Abdullahi Bonilla, Status: Pen, Time: 11:45 AM [facility] Work Phone: Start: 05-20-2022 FUV, Provider: Abdullahi Bonilla, Status: Pen, Time: 9:30 AM FUV, Provider: Abdullahi Bonilla, Status: Pen, Time: 9:30 AM UA-Jrwadljhndwdrh-Rw [place]60 Work Phone: Start: 05-01-2022 COLON, Provider: Padma Orozco, Status: Pen, Time: 8:00 AM COLON, Provider: Padma Orozco, Status: Pen, Time: 8:00 AM [facility] Work Phone: Start: 01-21-2022 FUV, Provider: Abdullahi Bonilla, Status: Pen, Time: 9:45 AM FUV, Provider: Abdullahi Bonilla, Status: Pen, Time: 9:45 AM SM-Rnnzsrfeuicger-Id stlake SJW 250 Work Phone: Start: 12-25-2021 EPVRETINA, Provider: Tom Vasquez, Status: Pen, Time: 11:00 AM EPVRETINA, Provider: Tom Vasquez, Status: Pen, Time: 11:00 AM [facility] Work Phone: Start: 11-26-2021 FUV, Provider: Scarlett Martin, Status: Pen, Time: 2:00 PM FUV, Provider: Scarlett Martin, Status: Pen, Time: 2:00 PM [facility] Work Phone: Start: 10-08-2021 FUV, Provider: Abdullahi Bonilla, Status: Pen, Time: 9:15 AM FUV, Provider: Abdullahi Bonilla, Status: Pen, Time: 9:15 AM DW-Ahvrvflgjtjjlt-Gz stlake SJ[facility] 250 Work Phone: Start: 09-17-2021 PHYSICAL, Provider: Matthew Orozco, Status: Pen, Time: 4:00 PM PHYSICAL, Provider: Matthew Orozco, Status: Pen, Time: 4:00 PM ED-Iurqpvhtnwirr-ABD [place] [address] Work Phone: Start: 09-03-2021 FUV, Provider: Scarlett Martin, Status: Pen, Time: 10:00 AM FUV, Provider: Scarlett Martin, Status: Pen, Time: 10:00 AM UY-Jfsbwwejhxrtg-QMM [place] [address] Work Phone: Start: 08-27-2021 FUV, Provider: Scarlett Martin, Status: Pen, Time: 10:30 AM FUV, Provider: Scarlett Martin, Status: Pen, Time: 10:30 AM HU-Qbuugqwhylqirt-Jm idman Voice Work Phone: Start: 08-21-2021 PHYSICAL, Provider: Matthew Orozco, Status: Pen, Time: 2:40 PM PHYSICAL, Provider: Matthew Orozco, Status: Pen, Time: 2:40 PM [facility]N [place] Work Phone: Start: 07-09-2021 FUV, Provider: Abdullahi Bonilla, Status: Pen, Time: 9:15 AM FUV, Provider: Abdullahi Bonilla, Status: Pen, Time: 9:15 AM LY-Ylvwpaywmbxqes-Ac idman Voice Work Phone: Start: 07-02-2021 PHYSICAL, Provider: Matthew Orozco, Status: Pen, Time: 9:00 AM PHYSICAL, Provider: Matthew Orozco, Status: Pen, Time: 9:00 AM -[facility] [place] Work Phone: Start: 04-24-2021 Patient encounter procedure CONTCLINIC, Provider: Leoncio Sparrow, Status: Pen, Time: 9:00 AM OU-Abekhxomupqiwi-Rh idman Voice Work Phone: Start: 03-26-2021 FUV, Provider: Abdullahi Bonilla, Status: Pen, Time: 9:30 AM FUV, Provider: Abdullahi Bonilla, Status: Pen, Time: 9:30 AM VI-Ecntkxnfncctst-Fl leslie SJW Work Phone: Start: 02-26-2021 FUV, Provider: Padma Orozco, Status: Pen, Time: 9:40 AM FUV, Provider: Padma Orozco, Status: Pen, Time: 9:40 AM -[facility]N [place] Work Phone: Start: 01-16-2021 Vitamin D25-[place] Vitamin D25-OH [facility] Start: 11-20-2020 FUV, Provider: Abdullahi Bonilla, Status: Pen, Time: 10:15 AM FUV, Provider: Abdullahi Bonilla, Status: Pen, Time: 10:15 AM [facility]N Yazan Work Phone: Start: 04-22-2020 Screening for malign ant neoplasm of cervix [facility] Start: 06-28-2019 Diabetes mellitus screening Diabetes Screening [facility] Start: 09-21-2018 CT Sinuses Wit hout Contrast Volumetric Surgical Planning ZP-Iwhnthntfbbcnd-Od stlake [facility] Work Phone: Start: 2012 DTaP/Tdap/Td Vaccine s (1 - Tdap) DTaP/Tdap/Td Vaccines (1 - Tdap) [facility] Start: 2011 Screening for malign ant neoplasm of cervix HPV/Cotest [facility] Start: 2009 Hepatitis B Vaccines (1 of 3 - 19+ 3-dose series) Hepatitis B Vaccines (1 of 3 - 19+ 3-dose series) [facility] Start: 2009 Zoster Vaccines (1 o f 2) Zoster Vaccines (1 of 2) [facility] Start: 2008 Hepatitis C screening Hepatitis C Sc reening [facility] Start: 2003 Varicella vaccination Varicell a Vaccines (1 of 2 - 13+ 2-dose series) [facility] Start: 1996 Pneumococcal Vaccine : Pediatrics (0 to 5 Years) and At-Risk Patients (6 to 64 Years) (1 - PCV) Pneumococcal Vaccine: Pediatrics (0 to 5 Years) and At-Risk Patients (6 to 64 Years) (1 - PCV) [facility] Start: 1996 Pneumococcal Vaccine : Pediatrics (0 to 5 Years) and At-Risk Patients (6 to 64 Years) (1 of 2 - PCV) Pneumococcal Vaccine: Pediatrics (0 to 5 Years) and At-Risk Patients (6 to 64 Years) (1 of 2 - PCV) [facility] Start: 1995 COVID-19 Vaccine (#1) COVID-19 Vacci ne (#1) [facility] Start: 1991 MMR Vaccines (1 of 1 - Standard series) MMR Vaccines (1 of 1 - Standard series) [facility] Start: 1991 Varicella vaccination Varicell a Vaccines (1 of 2 - 2-dose childhood series) [facility] Start: 1990 Examination of skin Derm Melan consuelo Skin Check [facility] Start: 1990 Hepatitis B Vaccines (1 of 3 - 3-dose series) Hepatitis B Vaccines (1 of 3 - 3-dose series) [facility] Start: 1990 HIV screening HIV Screening [facility] Start: 1990 Lipid panel Lipid Panel [facility] Start: 1990 Screening for osteoporosis Bone Density Scan [facility] Start: 1990 TB Test TB Test [facility] [place] Work Phone: NEGATED: Highlighted row has been ruled out! Planned Goals not documented [facility] [place] Work Phone: Immunizations Immunization Date Immunization Notes Care Provider [facility] 04-09-2020 diphtheria, tetanus toxoids and pertussis vaccine Kiko Leaverton INTERNET MARKETING DIRECTOR-CRITICAL CARE PHYSICIAN Work Phone: [facility] 05-31-2009 hepatitis A vaccine, unspecified formulation Kiko Leaverton INTERNET MARKETING DIRECTOR-CRITICAL CARE PHYSICIAN Work Phone: [facility] Work Phone: 05-31-2009 hepatitis B vaccine, pediatric or pediatric/adolescent dosage Kiko Leaverton INTERNET MARKETING DIRECTOR-CRITICAL CARE PHYSICIAN Work Phone: [facility] Work Phone: 05-31-2009 HPV, unspecified formulation Kiko Leaverton INTERNET MARKETING DIRECTOR-CRITICAL CARE PHYSICIAN Work Phone: [facility] Work Phone: 01-25-2009 hepatitis B vaccine, pediatric or pediatric/adolescent dosage Kiko Leaverton INTERNET MARKETING DIRECTOR-CRITICAL CARE PHYSICIAN Work Phone: [facility] Work Phone: 01-25-2009 HPV, unspecified formulation Kiko Leaverton INTERNET MARKETING DIRECTOR-CRITICAL CARE PHYSICIAN Work Phone: [facility] Work Phone: 11-20-2008 hepatitis A vaccine, unspecified formulation Kiko Leaverton INTERNET MARKETING DIRECTOR-CRITICAL CARE PHYSICIAN Work Phone: [facility] Work Phone: 11-20-2008 hepatitis B vaccine, pediatric or pediatric/adolescent dosage Kiko Leaverton INTERNET MARKETING DIRECTOR-CRITICAL CARE PHYSICIAN Work Phone: [facility] Work Phone: 11-20-2008 HPV, unspecified formulation Kiko Leaverton INTERNET MARKETING DIRECTOR-CRITICAL CARE PHYSICIAN Work Phone: [facility] Work Phone: 11-20-2008 meningococcal polysaccharide (groups A, C, Y and W-135) diphtheria toxoid conjugate vaccine (MCV4P) Kiko Leaverton INTERNET MARKETING DIRECTOR-CRITICAL CARE PHYSICIAN Work Phone: [facility] Work Phone: 11-20-2008 tetanus toxoid, redu camilo diphtheria toxoid, and acellular pertussis vaccine, adsorbed Kiko Leaverton INTERNET MARKETING DIRECTOR-CRITICAL CARE PHYSICIAN Work Phone: [facility] Work Phone: 08-12-1995 measles, mumps and rubella virus vaccine Kiko Leaverton INTERNET MARKETING DIRECTOR-CRITICAL CARE PHYSICIAN Work Phone: [facility] Work Phone: 10-27-1991 measles, mumps and rubella virus vaccine Kiko Leaverton INTERNET MARKETING DIRECTOR-CRITICAL CARE PHYSICIAN Work Phone: [facility] Work Phone: Payers Date Payer Category Payer Self-pay [id number] 2020 Medicaid (Managed Care) [employer] [id number] 2020 Unknown 1990 Unknown [id number]. 355 1990 Unknown [id number] [id number]. 355 1990 Unknown [id number] [id number]. 355 1990 Unknown [id number] [id number]. 355 1990 Unknown [id number] [id number]. 175 1990 Unknown [id number] [id number]. 593 1990 Unknown [id number] [id number]. 593 1990 Unknown [id number] [id number]. 593 1990 Unknown [id number] [id number]. 593 1990 Unknown [id number] [id number]. 593 1990 Unknown [id number] [id number]. 593 1990 Unknown [id number] 2.16.840.1.673528.3.579.2. 593 1990 Unknown [id number] 2.16.840.1.381475.3.579.2. 593 1990 Unknown [id number] 2.16.840.1.532615.3.579.2. 593 1990 Unknown [id number] 2.16.840.1.043950.3.579.2. 356 1990 Unknown [id number] 2.16.840.1.872398.3.579.2. 356 1990 Unknown [id number] 2.16.840.1.037779.3.579.2. 356 1990 Unknown [id number] 2.16.840.1.087146.3.579.2. 356 1990 Unknown [id number] 2.16.840.1.337342.3.579.2. 356 1990 Unknown [id number] 2.16.840.1.722449.3.579.2. 356 1990 Unknown [id number] 2.16.840.1.886703.3.579.2. 356 1990 Unknown [id number] 2.16.840.1.245880.3.579.2. 356 1990 Unknown [id number] 2.16.840.1.982849.3.579.2. 356 1990 Unknown [id number] 2.16.840.1.195599.3.579.2. 356 1990 Unknown [id number] 2.16.840.1.536023.3.579.2. 356 1990 Unknown [id number] 2.16.840.1.714965.3.579.2. 356 1990 Unknown [id number] 2.16.840.1.020116.3.579.2. 356 1990 Unknown [id number] 2.16.840.1.562682.3.579.2. 356 1990 Unknown [id number] 2.16.840.1.416046.3.579.2. 1069 1990 Unknown [id number] 2.16.840.1.465965.3.579.2. 9 1990 Unknown [id number] 2.16.840.1.948459.3.579.2. 9 1990 Unknown [id number] 2.16.840.1.787080.3.579.2. 1068 1990 Unknown [id number] 2.16.840.1.484418.3.579.2. 9 1990 Unknown [id number] 2.16.840.1.020104.3.579.2. 1242 1990 Unknown [id number] 2.16.840.1.996355.3.579.2. 1242 1990 Unknown [id number] 2.16.840.1.520252.3.579.2. 1242 1990 Unknown [id number] 2.16.840.1.047457.3.579.2. 1242 1990 Unknown [id number] 2.16.840.1.419495.3.579.2. 1244 1990 Unknown [id number] 2.16.840.1.700032.3.579.2. 1244 1990 Unknown [id number] 2.16.840.1.838310.3.579.2. 1244 1990 Unknown [id number] 2.16.840.1.559443.3.579.2. 1244 1990 Unknown [id number] 2.16.840.1.168318.3.579.2. 1244 1990 Unknown [id number] 2.16.840.1.556279.3.579.2. 124 1990 Unknown [id number] 2.16.840.1.617149.3.579.2. 1245 1990 Unknown [id number] 2.16.840.1.272784.3.579.2. 1244 1990 Unknown [id number] 2.16.840.1.196699.3.579.2. 5 1990 Unknown [id number] 2.16.840.1.634820.3.579.2. 1244 1990 Unknown [id number] 2.16.840.1.136597.3.579.2. 1244 1990 Unknown [id number] 2.16.840.1.227613.3.579.2. 1244 1990 Unknown [id number] 2.16.840.1.045175.3.579.2. 1244 1990 Unknown [id number] 2.16.840.1.956857.3.579.2. 1243 1990 Unknown [id number] 2.16.840.1.144721.3.579.2. 1243 1990 Unknown [id number] 2.16.840.1.468278.3.579.2. 1243 1990 Unknown [id number] 2.16.840.1.410357.3.579.2. 1243 1990 Unknown [id number] 2.16.840.1.129448.3.579.2. 1243 1990 Unknown [id number] 2.16.840.1.479416.3.579.2. 1243 1990 Unknown [id number] 2.16.840.1.083368.3.579.2. 1243 1990 Unknown [id number] 2.16.840.1.339739.3.579.2. 1244 1959 Unknown [id number] 1959 Unknown [id number] Unknown [id number] 2.16.840.1.255117.3.579.2. 243 Unknown [id number] 2.16.840.1.137855.3.579.2. 243 Unknown [id number] 2.16.840.1.392610.3.579.2. 243 Unknown [id number] 2.16.840.1.963832.3.579.2. 243 Unknown [id number] 2.16.840.1.766110.3.579.2. 243 Unknown Regular Insurance [id number] Unknown [id number] 2.16.840.1.378665.3.579.2. 531 Social History Date Type Detail Facility Start: 02-17-2023 End: 12-11-2023 Caffeine Use Caffeine Use [facility] Work Phone: Start: 05-10-2018 End: 08-22-2022 Tobacco smoking status NHIS Never smoked tobacco [facility] Start: 08-22-2022 Tobacco use and exposure Smokeless tobacco non-user [facility] Work Phone: Start: 02-17-2023 End: 12-11-2023 Tobacco use panel [facility] Work Phone: Start: 1990 Sex Assigned At Female U [facility] Start: 02-07-2023 End: 03-02-2024 Exposure to SARS-CoV-2 (event) Not sure [facility] Start: 09-01-2023 End: 12-11-2023 Alcoholic beverage intake Ex-drinker (finding) [facility] Work Phone: Start: 09-06-2023 End: 09-16-2023 Exposure to SARS-CoV-2 (event) Unable to assess [facility] Start: 04-02-2024 Sex Female (finding) [facility] NEGATED: Highlighted row - [facility] smoker [facility] Work [facility]: NEGATED: Highlighted rowStart: NINF History of tobacco use Passive smoker [facility] Work Phone: Functional Status Date Assessment Result Facility NEGATED: Highlighted row Functional performance Functional status health issues are not documented Disease [facility] Work Phone: Mental Status Date Assessment Result Facility NEGATED: Highlighted row Cognitive function [Interpretation] Cognitive status health issues are not documented Disease [facility] Work Phone: Clinical Notes 06-28-2018 to 03-02-2024 Binu Baldwin, [facility] - 03/02/2024 9:30 AM EDTRoben L Leaverton, [facility]-CRITICAL CARE PHYSICIAN - 02/17/2024 8:00 AM EDTRoben L Leaverton, INTERNET MARKETING DIRECTOR-CRITICAL CARE PHYSICIAN - 09/16/2023 8:00 AM EDTPatient InstructionsPatient Instructions Note Date & Type Note Facility 03-02-2024 History of Present illness Narrative Subjective Patient ID: Lola Higginbotham is a 33 y.o. female who presents for Crohn's Disease (Patient presents for crohn's follow up. Humira every 7 days. Last colon 05/[address] Browning. Azothiaprine 75 and 50 mg. ). [facility] 09/01/23 DR. Orozco: 33-year-old female diagnosed with Crohn's disease affecting the small and large bowel. She is currently on Humira weekly plus azathioprine added due to uveitis. Her last colonoscopy did not show any evidence of active disease. She has not checked blood work including a TB test for TPMT metabolites. We will get those blood work done today even though her Humira injection is due this . I will also check inflammatory markers. She will follow-up in 6 months and will be due for her next colonoscopy next year Prev endoscopic eval: >> Colonoscopy 04/2022 - Crohn's score 0 , repeat in 3 years [facility] follow-up 03/02/2024: Patient following up for Crohn's disease. She is taking Humira injections weekly. She has 1-2 soft formed stools per day. No melena or hematochezia. No nocturnal bowel movements or mucus. She denies abdominal pain. Weight and appetite are stable. No eye infections or skin rashes. Takes azathioprine for history of uveitis. No new joint pain or paresthesias. No GERD or dysphagia. She has no GI complaints at this time. Current Outpatient Medications on File Prior to Visit Medication Sig Dispense Refill adalimumab (Humira,CF, Pen) 40 mg/0.4 mL pen injector kit pen-injector INJECT 40MG (1 PEN) UNDER THE SKIN ONCE WEEKLY DIRECTED. 12 each 3 blood pressure monitor kit 1 Units once daily. 1 kit 0 cholecalciferol (Vitamin D-3) 50 mcg (2,000 unit) capsule Take 1 capsule (50 mcg) by mouth once daily. fluticasone (Flonase) 50 mcg/actuation nasal spray Administer into affected nostril(s) if needed. levothyroxine (Synthroid, Levoxyl) 137 mcg tablet Take 1 tablet (137 mcg) by mouth early in the morning.. 30 tablet 11 [DISCONTINUED] azaTHIOprine (Imuran) 50 mg tablet Take 1.5 tablets (75 mg) by mouth once daily. alternating 1 tablet every other day 75mg 4xweekly 50mg 3xweekly [DISCONTINUED] azaTHIOprine (Imuran) 75 mg tablet Take by mouth once daily. ergocalciferol (Vitamin D-2) 1.25 MG (80837 UT) capsule Take by mouth. (Patient not taking: Reported on 03/02/2024) polyethylene glycol-electrolytes 420 gram solution Take by mouth if needed. take as directed (Patient not taking: Reported on 03/02/2024) No current facility-administered medications on file prior to visit. Review of Systems All other systems reviewed and are negative. Objective Physical Exam Vitals reviewed. Constitutional: General: She is awake. She is not in acute distress. Appearance: Normal appearance. She is not ill-appearing, toxic-appearing or diaphoretic. HENT: Head: Normocephalic and atraumatic. Eyes: General: No scleral icterus. Pupils: Pupils are equal, round, and reactive to light. Cardiovascular: Rate and Rhythm: Normal rate and regular rhythm. Heart sounds: Normal heart sounds. No murmur heard. Pulmonary: Effort: Pulmonary effort is normal. No respiratory distress. Breath sounds: Normal breath sounds. Abdominal: General: Abdomen is protuberant. Bowel sounds are normal. Palpations: Abdomen is soft. There is no hepatomegaly. Tenderness: There is no abdominal tenderness. There is no guarding or rebound. Musculoskeletal: General: Normal range of motion. Cervical back: Normal range of motion. Right lower leg: No edema. Left lower leg: No edema. Skin: General: Skin is warm and dry. Coloration: Skin is not jaundiced or pale. Neurological: General: No focal deficit present. Mental Status: She is alert and oriented to person, place, and time. Motor: No weakness. Gait: Gait normal. Psychiatric: Mood and Affect: Mood normal. Behavior: Behavior is cooperative. Thought Content: Thought content normal. Judgment: Judgment normal. BP (!) 138/102 Pulse 87 Ht 1.6 m (5' 3 ) Wt 97.3 kg (214 lb 6.4 oz) SpO2 96% BMI 37.98 kg/m Lab Results Component Value Date WBC 9.2 02/16/2024 HGB 10.8 (L) 02/16/2024 HCT 34.0 (L) 02/16/2024 MCV 85 02/16/2024 PLT 265 02/16/2024 No lab exists for component: LABALBU No results found for: AFP Lab Results Component Value Date TSH 11.17 (H) 12/11/2023 Assessment/Plan Diagnoses and all orders for this visit: Crohn's disease of small and large intestines with complication (Multi) - Thiopurine Metabolites by LC-MS/MS (6MMP); Future - azaTHIOprine (Imuran) 50 mg tablet; Take 1 tablet (50 mg) by mouth every other day. alternating 1 tablet every other day - azaTHIOprine (Imuran) 75 mg tablet; Take 1 tablet (75 mg) by mouth every other day. Very pleasant 33-year-old female diagnosed with Crohn's disease affecting the small and large bowel. Currently she is taking Humira 40 mg weekly, plus azathioprine. No EIM's other than her history of uveitis. Azathioprine was added due to uveitis. Colonoscopy is up-to-date and did not show any evidence of active disease. TB test and labs are up-to-date. However, will check TPMT metabolites this visit. Colonoscopy due 2024. Follow-up with Dr. Orozco in 6 months, sooner if needed. Binu Baldwin CRITICAL CARE PHYSICIAN documented in this encounter [facility] Work Phone: 02-17-2024 History of Present illness Narrative Patient ID: Lola Higginbotham is a 33 y.o. female. Interval History: Ms. Higginbotham is a 27yo female with complicated Crohn's disease since 2011 , was hospitalized at [facility] in 07/2015 (1st since Dx) with a disease flare while on azathioprine and steroids , CMV colitis, sepsis and pancytopenia . Developed DVT-PE during hospitalization. She has a history of Fe deficiency anemia treated with IV Fe, reacted to Feraheme. 07/23/16 Patient is here to see if she will need IV iron sucrose. She had a colonoscopy on 08/17/15 which showed a fistula. She had an EGD on 07/11/10 which was negative. 04/02/17 pt is here to follow up after receiving 3 doses of IV iron sucrose on 02/16/17, 02/19/17 and 02/26/17. 10/12/18: recommended Venofer infusion 300 mg x 3 times 02/10/2020 Received Venofer 200mg x 5 for iron deficiency anemia, complicated by preganncy. July,: Received Venofer infusion 300 mg x 3 times. 06/24/2021 Currently 26 weeks , with REFUGIO 09/29/21. 07/01/21 to 07/15/21: Venofer infusion 200 mg x 5 times Patient was on Azathioprine from 2011 to 2019 and restarted it in July this year due to a flare-up of right eye uveitis. 07/15/2023 Interval follow up 09/16/2023: 8 week follow up phone visit 07/15/2023: Patient presents for follow up. Her previous provider relocated so I am taking over her care. Patient reports her chronic fatigue is unchanged Last IV iron course was in March 2023 She denies signs or symptoms of bleeding such as melena, hematochezia and denies reflux/heartburn symptoms She continues to follow with GI for Crohns management Reports her bowels are regular right now and denies recent flare Denies restless legs, cramping, changes in her sleep pattern (chronically has trouble staying asleep), SOB at rest (states she has chronic episodes of SOB that she has discussed with other physicians and is unchanged), chest pain, palpitations, lumps/bumps, fevers, chills, or edema Continues to follow with her liquor commissioner Denies changes of her appetite or unintentional weight loss She does not smoke or drink alcohol She is seeing her primary care doctor in August, who she plans to discuss her elevated diastolic BP with, which has been elevated since about August of 202209/16/2023: Consent: A telephone visit (audio only) between the patient at home and the provider at [facility] was utilized to provide this telehealth service. - Patient presents for 2-month follow-up to review recent blood work -Since last visit she saw her PCP who refilled her thyroid medication, patient have been out for a month -She also saw her GI doctor and she continues on Humira every 7 days for Crohn's, last colonoscopy was in 04/2022 and per note she will be due next year -She also saw her liquor commissioner, who she follows for uveitis, who says that things are under control and suspects Humira is controlling the uveitis as well -She is also on azathioprine -Patient reports her symptoms are stable and denies any recent hospital stays or health changes -She reports that yesterday she did have a small nosebleed from the left nostril, she states that she follows ENT for this and it is related to dry mucous membranes and it was a small amount of blood -Recall that she is not on oral iron -Patient denies any signs of bleeding such as melena, hematochezia, and states that her bowels remain regular at this time, she denies recent infections and has not started monitoring her blood pressure at home yet 12/17/2023: - Labs from 12/13 show: WBC 10.3, hgb 11.1, plt 270,000, iron saturation 12%, ferritin 75, unremarkable renal and hepatic function - Reports regular menstrual cycles with heavy flow first few days (heavier since having children) - She is having formed bowel movements and has no diet restrictions - She says overall she is feeling well - SOB is stable and fatigue is not worsening Subjective 02/17/2024: Consent: A telephone visit (audio only) between the patient at home and the provider at [facility]. [facility] was utilized to provide this telehealth service. - Patient presents for telephone visit to review recent labs. She reports doing well with no hospital stays, health changes or concerns since last visit. - Recall she is not on oral iron currently - Reports menstrual cycle is unchanged, heavy for the first few days only - Denies other signs of bleeding - Denies signs/symptoms of anemia or B constitutional symptoms - Energy is stable ROS 14 points performed, See HPI for exceptions Social History Tobacco Use Smoking status: Never Passive exposure: Never Smokeless tobacco: Never Vaping Use Vaping status: Never Used Substance Use Topics Alcohol use: Not Currently Drug use: Never Objective Visit Vitals Smoking Status Never Vital signs and physical exam not completed due to telephone visit. Review of Systems Constitutional: Negative for chills, diaphoresis, fatigue, fever and unexpected weight change. HENT: Negative. Negative for lump/mass and trouble swallowing. Eyes: Negative. Respiratory: Negative. Negative for chest tightness, cough and shortness of breath. Cardiovascular: Negative. Gastrointestinal: Negative. Negative for abdominal pain and nausea. Denies early satiety Genitourinary: Negative. Musculoskeletal: Negative. Skin: Negative. Neurological: Negative. Negative for numbness. Hematological: Negative. Negative for adenopathy. Psychiatric/Behavioral: Negative. All other systems reviewed and are negative. Labs: Lab Results Component Value Date WBC 9.2 02/16/2024 NEUTROABS 6.03 02/16/2024 IGABSOL 0.02 02/16/2024 LYMPHSABS 2.55 02/16/2024 MONOSABS 0.44 02/16/2024 EOSABS 0.07 02/16/2024 BASOSABS 0.04 02/16/2024 RBC 4.02 02/16/2024 MCV 85 02/16/2024 MCHC 31.8 (L) 02/16/2024 HGB 10.8 (L) 02/16/2024 HCT 34.0 (L) 02/16/2024 PLT 265 02/16/2024 Lab Results Component Value Date CREATININE 0.88 12/14/2023 BUN 9 12/14/2023 EGFR 89 12/14/2023 NA 139 12/14/2023 K 3.6 12/14/2023 CL 105 12/14/2023 CO2 26 12/14/2023 Lab Results Component Value Date ALT 10 12/14/2023 AST 13 12/14/2023 ALKPHOS 46 12/14/2023 BILITOT 0.3 12/14/2023 Lab Results Component Value Date IRON 68 02/16/2024 TIBC 284 02/16/2024 FERRITIN 78 02/16/2024 Lab Results Component Value Date [id number] 437 12/14/2023 Lab Results Component Value Date FOLATE 7.7 11/26/2021 Performance Status: Symptomatic; fully ambulatory Assessment/Plan Anemia -multifactorial: anemia of chronic disease and Fe deficiency (GI blood loss and malabsorption due to Crohn's since 2011). -S/p a multiple of IV iron infusion with a good response as described above. -Labs done on 03/10/23: Hgb 10.7, MCV 85, ferritin 24, CRP 5.0, ESR 75. The last Venofer infusion was given in Jun, 2021. -Iron panel was not done. We will add the iron panel to her recent blood drawn today. -Labs reviewed: iron saturation 10%. I will schedule patient for another course of Venofer infusion. -I will see her back in 4 months to follow up with labs done a few days prior to the next visit. 07/15/2023: - Presents for 4 month follow up - Labs reviewed: WBC 9.3, hgb 11.2, MCV 86, plt 286,000, iron saturation 15%, ferritin 119 - s/p course of venofer in March 2023 - She reports no new or worsening symptoms, denies signs of bleeding - Continues to follow with GI for her Crohn's disease - Discussed with patient that her ferritin has had a great response to the IV iron and although her hgb 11.2 is below asad, it has improved and may continue to improve and that since she is feeling well and may also have anemia from her chronic diseases, I would recommend repeating labs in 8 weeks - Patient agrees with plan - She will call with questions, concerns or new/worsening symptoms in the meantime - RTC in 8 weeks with repeat labs 09/16/2023: -Presents for 2-month follow-up to review the labs -CMP unremarkable -CBC shows WBCs 9.7, hemoglobin 11.2, MCV 92, platelets 283,000 -Iron saturation 24%, TIBC 321, ferritin 94 - CRP 1.10, Sed Rate 46 -Patient does not require iron administration at this time -She has elevated inflammatory markers and therefore I suspect her remaining anemia is related to anemia of chronic disease as she has no signs of bleeding and overall symptoms are stable -Patient feels that rechecking her labs in 3 to 6 months is preferred -Therefore she will return for a follow-up visit with me in 3 months with repeat lab work a few days prior 12/17/2023: - Labs from 12/13 show: WBC 10.3, hgb 11.1, plt 270,000, iron saturation 12%, ferritin 75, unremarkable renal and hepatic function - Discussed that with her iron saturation we can consider IV iron or monitoring since her hgb is stable and her symptoms are at baseline - She prefers to monitor lab work - She will have labs in the beginning of February with a FUV - Advised patient to call if any new/worsening symptoms in the meantime 02/17/2024: - Phone visit for follow up - Labs show WBC 9.2, hgb 10.8, plt 265,000, iron saturation improved to 24%, TIBC 284, ferritin 78 - Her hgb is slightly lower but iron indices do not show iron deficiency, likely related to anemia of chronic disease/inflammation from her Crohn's disease, also has a hx of Graves disease now on synthroid - She has no new/worsening symptoms - We will have her return for lab check only in 3 months, she is ok if we MyChart message her regarding results - She will then RTC in 6 months from now with repeat labs to monitor for NEYDA - She was reminded to call in the meantime if any new/worsening symptoms or questions/concerns 2. Crohn's diease -Currently on Humira injection once per week and azathiorpime. 3) DVT/PE -Provoked (acute illness in hospital stay) life threatening VTE in 07/2015. Mildly low protein S level during acute illness of unknown significance. Negative hypercoagulability panel otherwise. Well tolerated; however, protein S was checked at time of acute event--this should not have been done at that time as an acute clot lowers protein S so you cannot rule out protein S deficiency at that time; appropriate time to screen for hereditary thrombophilia would be AFTER a patient has completed course of anticoagulation -also, IBD (inflammatory bowel disease--both Crohn's and ulcerative colitis) confers acquired hypercoagulable state, so further thrombophilia workup is not necessary in this context -pt has now been off coumadin for several months -will recheck protein S antigen and activity - negative on 01/28/17 4) thyroid goiter - U/S on 07/2016 continues to show enlarged multinodular goiter Diagnoses and all orders for this visit: Iron deficiency anemia, unspecified iron deficiency anemia type - CBC and Auto Differential; Future - Ferritin; Future - Iron and TIBC; Future - Clinic Appointment Request [facility]; Future - CBC and Auto Differential; Future - Ferritin; Future - Iron and TIBC; Future - Vitamin B12; Future Iron malabsorption (HHS-HCC) - CBC and Auto Differential; Future - Ferritin; Future - Iron and TIBC; Future - Clinic Appointment Request [facility]; Future - CBC and Auto Differential; Future - Ferritin; Future - Iron and TIBC; Future - Vitamin B12; Future JOE Krishna documented in this encounter [facility] Work Phone: 09-16-2023 History of Present illness Narrative Patient ID: Lola Higginbotham is a 33 y.o. female. Interval History: Ms. Higginbotham is a 27yo female with complicated Crohn's disease since 2011 , was hospitalized at [facility] in 07/2015 (1st since Dx) with a disease flare while on azathioprine and steroids , CMV colitis, sepsis and pancytopenia . Developed DVT-PE during hospitalization. She has a history of Fe deficiency anemia treated with IV Fe, reacted to Feraheme. 07/23/16 Patient is here to see if she will need IV iron sucrose. She had a colonoscopy on 08/17/15 which showed a fistula. She had an EGD on 07/11/10 which was negative. 04/02/17 pt is here to follow up after receiving 3 doses of IV iron sucrose on 02/16/17, 02/19/17 and 02/26/17. 10/12/18: recommended Venofer infusion 300 mg x 3 times 02/10/2020 Received Venofer 200mg x 5 for iron deficiency anemia, complicated by preganncy. July,: Received Venofer infusion 300 mg x 3 times. 06/24/2021 Currently 26 weeks , with REFUGIO 09/29/21. 07/01/21 to 07/15/21: Venofer infusion 200 mg x 5 times Patient was on Azathioprine from 2011 to 2019 and restarted it in July this year due to a flare-up of right eye uveitis. 07/15/2023 Interval follow up 09/16/2023: 8 week follow up phone visit Subjective 07/15/2023: Patient presents for follow up. Her previous provider relocated so I am taking over her care. Patient reports her chronic fatigue is unchanged Last IV iron course was in March 2023 She denies signs or symptoms of bleeding such as melena, hematochezia and denies reflux/heartburn symptoms She continues to follow with GI for Crohns management Reports her bowels are regular right now and denies recent flare Denies restless legs, cramping, changes in her sleep pattern (chronically has trouble staying asleep), SOB at rest (states she has chronic episodes of SOB that she has discussed with other physicians and is unchanged), chest pain, palpitations, lumps/bumps, fevers, chills, or edema Continues to follow with her liquor commissioner Denies changes of her appetite or unintentional weight loss She does not smoke or drink alcohol She is seeing her primary care doctor in August, who she plans to discuss her elevated diastolic BP with, which has been elevated since about August of 202209/16/2023: Consent: A telephone visit (audio only) between the patient at home and the provider at [facility] was utilized to provide this telehealth service. - Patient presents for 2-month follow-up to review recent blood work -Since last visit she saw her PCP who refilled her thyroid medication, patient have been out for a month -She also saw her GI doctor and she continues on Humira every 7 days for Crohn's, last colonoscopy was in 04/2022 and per note she will be due next year -She also saw her liquor commissioner, who she follows for uveitis, who says that things are under control and suspects Humira is controlling the uveitis as well -She is also on azathioprine -Patient reports her symptoms are stable and denies any recent hospital stays or health changes -She reports that yesterday she did have a small nosebleed from the left nostril, she states that she follows ENT for this and it is related to dry mucous membranes and it was a small amount of blood -Recall that she is not on oral iron -Patient denies any signs of bleeding such as melena, hematochezia, and states that her bowels remain regular at this time, she denies recent infections and has not started monitoring her blood pressure at home yet ROS 14 points performed, See HPI for exceptions Social History Tobacco Use Smoking status: Never Passive exposure: Never Smokeless tobacco: Never Vaping Use Vaping status: Never Used Substance Use Topics Alcohol use: Not Currently Drug use: Never Objective Visit Vitals Smoking Status Never Vital signs and physical exam not completed due to telephone visit Labs: Lab Results Component Value Date WBC 9.7 09/15/2023 NEUTROABS 6.10 09/15/2023 IGABSOL 0.02 09/15/2023 LYMPHSABS 2.94 09/15/2023 MONOSABS 0.48 09/15/2023 EOSABS 0.06 09/15/2023 BASOSABS 0.08 09/15/2023 RBC 4.22 09/15/2023 MCV 92 09/15/2023 MCHC 29.0 (L) 09/15/2023 HGB 11.2 (L) 09/15/2023 HCT 38.6 09/15/2023 PLT 283 09/15/2023 Lab Results Component Value Date CREATININE 0.80 09/15/2023 BUN 10 09/15/2023 EGFR >90 09/15/2023 NA 138 09/15/2023 K 3.9 09/15/2023 CL 104 09/15/2023 CO2 25 09/15/2023 Lab Results Component Value Date ALT 12 09/15/2023 AST 15 09/15/2023 ALKPHOS 50 09/15/2023 BILITOT 0.3 09/15/2023 Lab Results Component Value Date IRON 76 09/15/2023 TIBC 321 09/15/2023 FERRITIN 94 09/15/2023 Lab Results Component Value Date [id number] 409 07/14/2023 Lab Results Component Value Date FOLATE 7.7 11/26/2021 Performance Status: Symptomatic; fully ambulatory Assessment/Plan Anemia -multifactorial: anemia of chronic disease and Fe deficiency (GI blood loss and malabsorption due to Crohn's since 2011). -S/p a multiple of IV iron infusion with a good response as described above. -Labs done on 03/10/23: Hgb 10.7, MCV 85, ferritin 24, CRP 5.0, ESR 75. The last Venofer infusion was given in Jun, 2021. -Iron panel was not done. We will add the iron panel to her recent blood drawn today. -Labs reviewed: iron saturation 10%. I will schedule patient for another course of Venofer infusion. -I will see her back in 4 months to follow up with labs done a few days prior to the next visit. 07/15/2023: - Presents for 4 month follow up - Labs reviewed: WBC 9.3, hgb 11.2, MCV 86, plt 286,000, iron saturation 15%, ferritin 119 - s/p course of venofer in March 2023 - She reports no new or worsening symptoms, denies signs of bleeding - Continues to follow with GI for her Crohn's disease - Discussed with patient that her ferritin has had a great response to the IV iron and although her hgb 11.2 is below asad, it has improved and may continue to improve and that since she is feeling well and may also have anemia from her chronic diseases, I would recommend repeating labs in 8 weeks - Patient agrees with plan - She will call with questions, concerns or new/worsening symptoms in the meantime - RTC in 8 weeks with repeat labs 09/16/2023: -Presents for 2-month follow-up to review the labs -CMP unremarkable -CBC shows WBCs 9.7, hemoglobin 11.2, MCV 92, platelets 283,000 -Iron saturation 24%, TIBC 321, ferritin 94 - CRP 1.10, Sed Rate 46 -Patient does not require iron administration at this time -She has elevated inflammatory markers and therefore I suspect her remaining anemia is related to anemia of chronic disease as she has no signs of bleeding and overall symptoms are stable -Patient feels that rechecking her labs in 3 to 6 months is preferred -Therefore she will return for a follow-up visit with me in 3 months with repeat lab work a few days prior 2. Crohn's diease -Currently on Humira injection once per week and azathiorpime. 3) DVT/PE -Provoked (acute illness in hospital stay) life threatening VTE in 07/2015. Mildly low protein S level during acute illness of unknown significance. Negative hypercoagulability panel otherwise. Well tolerated; however, protein S was checked at time of acute event--this should not have been done at that time as an acute clot lowers protein S so you cannot rule out protein S deficiency at that time; appropriate time to screen for hereditary thrombophilia would be AFTER a patient has completed course of anticoagulation -also, IBD (inflammatory bowel disease--both Crohn's and ulcerative colitis) confers acquired hypercoagulable state, so further thrombophilia workup is not necessary in this context -pt has now been off coumadin for several months -will recheck protein S antigen and activity - negative on 01/28/17 4) thyroid goiter - U/S on 07/2016 continues to show enlarged multinodular goiter Diagnoses and all orders for this visit: Iron deficiency anemia due to chronic blood loss - Clinic Appointment Request [facility]; Future - Comprehensive metabolic panel; Future - CBC and Auto Differential; Future - Iron and TIBC; Future - Vitamin B12; Future - Ferritin; Future Iron deficiency anemia, unspecified iron deficiency anemia type - Clinic Appointment Request [facility] - Clinic Appointment Request [facility]; Future - Comprehensive metabolic panel; Future - CBC and Auto Differential; Future - Iron and TIBC; Future - Vitamin B12; Future - Ferritin; Future Iron malabsorption (HHS-HCC) - Clinic Appointment Request [facility]; Future - Comprehensive metabolic panel; Future - CBC and Auto Differential; Future - Iron and TIBC; Future - Vitamin B12; Future - Ferritin; Future JOE Krishna documented in this encounter [facility] Work Phone: 09-16-2023 Instructions JOE Krishna - 09/16/2023 8:00 AM EDT Return in 3 months with labs a few days prior. Please call in the meantime with questions, concerns or symptom changes. Thank you, JOE Krishna documented in this encounter [facility] Work Phone: 09-01-2023 History of Present illness Narrative REASON FOR VISIT: Crohn's disease HPI: Lola Higginbotham is a 33 y.o. female who presents for Follow up Pt with hx of Crohn's disease overall doing well on Humira every 7 days and azathioprine 75 - added due to hx of uveitis due to inject daily BM's 1x - denies blood mucous or melena the patient denies any skin rashes , joint pain or stiffness , mucous membrane ulcerations or eye pain / visual disturbances. weight stable Med list notable for Humira q 7 days, azathioprine 75mg every other day and 50mg every other day Labs notable for No fhx of CRC. Prev endoscopic eval: >> Colonoscopy 04/2022 - Crohn's score 0 , repeat in 3-5 years REVIEW OF SYSTEMS Review of Systems Constitutional: Negative for chills, fever and weight loss. Respiratory: Negative for cough and shortness of breath. Musculoskeletal: Negative for joint pain and joint swelling. Gastrointestinal: Negative for bloating, abdominal pain, anorexia, change in bowel habit, bowel incontinence, constipation, diarrhea, dysphagia, excessive appetite, flatus, heartburn, hematemesis, hematochezia, hemorrhoids, jaundice, melena, nausea and vomiting. 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 Chronic iritis, bilateral Crohn's disease, unspecified, without complications (Multi) 11/08/2014 Acute Crohn's disease Cytomegaloviral disease, 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 Disorder of thyroid, unspecified Thyroid trouble Epistaxis 07/09/2017 Epistaxis Hypertrophy of nasal turbinates 02/08/2019 Nasal turbinate hypertrophy 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 07/09/2017 On prednisone therapy MCC (current) use of systemic steroids 05/05/2017 On prednisone therapy Nontoxic multinodular goiter 07/13/2018 Multinodular goiter Other conditions influencing health status 01/29/2015 Chronic steroid use Other viral enteritis 03/25/2016 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 10/01/2016 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/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 Periumbilical pain 07/09/2017 Periumbilical abdominal pain Personal history of diseases of the blood and blood-forming organs and certain disorders involving the immune mechanism History of iron deficiency anemia Personal history of diseases of the blood and blood-forming organs and certain disorders involving the immune mechanism History of anemia Personal history of other diseases of the nervous system and sense organs 06/15/2015 History of impacted cerumen Personal history of other diseases of the respiratory system 12/23/2018 History of chronic sinusitis Personal history of other diseases of the respiratory system 09/21/2018 History of chronic sinusitis Personal history of other diseases of the respiratory system 02/08/2019 History of deviated nasal septum Personal history of other endocrine, nutritional and metabolic disease 10/01/2015 History of toxic multinodular goiter Personal history of other endocrine, nutritional and metabolic disease 10/26/2018 History of goiter Personal history of other venous thrombosis and embolism 07/15/2016 History of deep venous thrombosis Personal history of pulmonary embolism 07/15/2016 History of pulmonary embolism Thyrotoxicosis, unspecified without thyrotoxic crisis or storm Hyperthyroidism Unspecified adrenocortical insufficiency (Multi) 07/09/2017 Adrenal insufficiency Unspecified adrenocortical insufficiency (Multi) 07/09/2017 Adrenal insufficiency Unspecified chorioretinal inflammation, 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, both eyes Unspecified chorioretinal inflammation, 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, bilateral Unspecified papilledema 11/08/2014 Optic nerve edema Unspecified ptosis of right eyelid 12/25/2021 Ptosis of right eyelid Unspecified ptosis of right eyelid 07/24/2014 Ptosis of right eyelid Past Surgical History: Procedure Laterality Date SECTION, CLASSIC GALLBLADDER SURGERY OTHER SURGICAL HISTORY 09/16/2018 Ileocecal resection OTHER SURGICAL HISTORY 06/01/2015 History Of Prior Surgery THYROIDECTOMY Family History Problem Relation Name Age of Onset Diabetes Mother Diabetes Father Diabetes type II Father Thrombosis Father Social History Tobacco Use Smoking status: Never Passive exposure: Never Smokeless tobacco: Never Substance Use Topics Alcohol use: Not Currently Current Outpatient Medications Medication Sig Dispense Refill adalimumab (Humira,CF, Pen) 40 mg/0.4 mL pen injector kit pen-injector INJECT 40MG (1 PEN) UNDER THE SKIN ONCE WEEKLY DIRECTED. 12 each 3 azaTHIOprine (Imuran) 50 mg tablet Take 1.5 tablets (75 mg) by mouth once daily. alternating 1 tablet every other day 75mg 4xweekly 50mg 3xweekly azaTHIOprine (Imuran) 75 mg tablet Take by mouth once daily. blood pressure monitor kit 1 Units once daily. 1 kit 0 cholecalciferol (Vitamin D-3) 50 mcg (2,000 unit) capsule Take 1 capsule (50 mcg) by mouth once daily. ergocalciferol (Vitamin D-2) 1.25 MG (01921 UT) capsule Take by mouth. fluticasone (Flonase) 50 mcg/actuation nasal spray Administer into affected nostril(s) once daily. levothyroxine (Synthroid, Levoxyl) 125 mcg tablet Take 1 tablet (125 mcg) by mouth once daily. as directed 90 tablet 1 polyethylene glycol-electrolytes 420 gram solution take as directed No current facility-administered medications for this visit. PHYSICAL EXAM: There were no vitals taken for this visit. Physical Exam Constitutional: Comments: Awake HENT: Head: Normocephalic. Cardiovascular: Rate and Rhythm: Normal rate and regular rhythm. Pulmonary: Effort: Pulmonary effort is normal. Breath sounds: Normal breath sounds. Abdominal: General: Bowel sounds are normal. Palpations: Abdomen is soft. Neurological: Mental Status: She is alert. Psychiatric: Mood and Affect: Mood normal. ASSESSMENT 33-year-old female diagnosed with Crohn's disease affecting the small and large bowel. She is currently on Humira weekly plus azathioprine added due to uveitis. Her last colonoscopy did not show any evidence of active disease. She has not checked blood work including a TB test for TPMT metabolites. We will get those blood work done today even though her Humira injection is due this . I will also check inflammatory markers. She will follow-up in 6 months and will be due for her next colonoscopy next year Evaluation requested by Dr. Matthew Orozco DO. My final recommendations will be communicated back to the requesting physician by way of shared Medical record or letter to requesting physician via fax. Attending Note: I have personally performed a face to face assessment of this Patient, which included an interview, physical exam and Assessment and Plan. I have reviewed and confirmed the history and munoz findings as documented by the Nanoscience Technician and edited as appropriate. Signature: Padma Orozco MD Date: 08/31/2023 Time: 2:08 PM documented in this encounter [facility] Work Phone: 07-15-2023 History of Present illness Narrative Patient ID: Lola Higginbotham is a 33 y.o. female. Interval History: Ms. Higginbotham is a 27yo female with complicated Crohn's disease since 2011 , was hospitalized at [facility] in 07/2015 (1st since ) with a disease flare while on azathioprine and steroids , CMV colitis, sepsis and pancytopenia . Developed DVT-PE during hospitalization. She has a history of Fe deficiency anemia treated with IV Fe, reacted to Feraheme. 07/23/16 Patient is here to see if she will need IV iron sucrose. She had a colonoscopy on 08/17/15 which showed a fistula. She had an EGD on 07/11/10 which was negative. 04/02/17 pt is here to follow up after receiving 3 doses of IV iron sucrose on 02/16/17, 02/19/17 and 02/26/17. 10/12/18: recommended Venofer infusion 300 mg x 3 times 02/10/2020 Received Venofer 200mg x 5 for iron deficiency anemia, complicated by preganncy. July,: Received Venofer infusion 300 mg x 3 times. 06/24/2021 Currently 26 weeks , with REFUGIO 09/29/21. 07/01/21 to 07/15/21: Venofer infusion 200 mg x 5 times Patient was on Azathioprine from 2011 to 2019 and restarted it in July this year due to a flare-up of right eye uveitis. 07/15/2023 Interval follow up Subjective Patient presents for follow up. Her previous provider relocated so I am taking over her care. Patient reports her chronic fatigue is unchanged Last IV iron course was in March 2023 She denies signs or symptoms of bleeding such as melena, hematochezia and denies reflux/heartburn symptoms She continues to follow with GI for Crohns management Reports her bowels are regular right now and denies recent flare Denies restless legs, cramping, changes in her sleep pattern (chronically has trouble staying asleep), SOB at rest (states she has chronic episodes of SOB that she has discussed with other physicians and is unchanged), chest pain, palpitations, lumps/bumps, fevers, chills, or edema Continues to follow with her liquor commissioner Denies changes of her appetite or unintentional weight loss She does not smoke or drink alcohol She is seeing her primary care doctor in August, who she plans to discuss her elevated diastolic BP with, which has been elevated since about August of 2022 ROS 14 points performed, See HPI for exceptions Social History Tobacco Use Smoking status: Never Passive exposure: Never Smokeless tobacco: Never Vaping Use Vaping Use: Never used Objective Visit Vitals BP (!) 135/97 Pulse 76 Temp 36.5 C (97.7 F) (Temporal) Resp 16 Wt 95.5 kg (210 lb 8.6 oz) SpO2 98% BMI 37.12 kg/m Smoking Status Never BSA 2.06 m Physical Exam HENT: Head: Normocephalic. Nose: Nose normal. Mouth/Throat: Mouth: Mucous membranes are moist. Eyes: Pupils: Pupils are equal, round, and reactive to light. Cardiovascular: Rate and Rhythm: Normal rate and regular rhythm. Pulses: Normal pulses. Heart sounds: Normal heart sounds. Pulmonary: Effort: Pulmonary effort is normal. Breath sounds: Normal breath sounds. Abdominal: General: Bowel sounds are normal. Palpations: Abdomen is soft. Musculoskeletal: General: Normal range of motion. Skin: General: Skin is warm and dry. Neurological: General: No focal deficit present. Mental Status: She is alert and oriented to person, place, and time. Psychiatric: Mood and Affect: Mood normal. Behavior: Behavior normal. Labs: Lab Results Component Value Date WBC 9.3 07/14/2023 NEUTROABS 6.17 07/14/2023 IGABSOL 0.01 07/14/2023 LYMPHSABS 2.56 07/14/2023 MONOSABS 0.47 07/14/2023 EOSABS 0.06 07/14/2023 BASOSABS 0.03 07/14/2023 RBC 4.14 07/14/2023 MCV 86 07/14/2023 MCHC 31.6 (L) 07/14/2023 HGB 11.2 (L) 07/14/2023 HCT 35.4 (L) 07/14/2023 PLT 286 07/14/2023 Lab Results Component Value Date CREATININE 0.83 08/19/2022 BUN 12 08/19/2022 NA 138 08/19/2022 K 3.8 08/19/2022 CL 104 08/19/2022 CO2 28 08/19/2022 Lab Results Component Value Date ALT 13 08/19/2022 AST 22 08/19/2022 ALKPHOS 43 08/19/2022 BILITOT 0.5 08/19/2022 Lab Results Component Value Date IRON 44 07/14/2023 TIBC 291 07/14/2023 FERRITIN 119 07/14/2023 Lab Results Component Value Date [id number] 409 07/14/2023 Lab Results Component Value Date FOLATE 7.7 11/26/2021 Performance Status: Symptomatic; fully ambulatory Assessment/Plan Anemia -multifactorial: anemia of chronic disease and Fe deficiency (GI blood loss and malabsorption due to Crohn's since 2011). -S/p a multiple of IV iron infusion with a good response as described above. -Labs done on 03/10/23: Hgb 10.7, MCV 85, ferritin 24, CRP 5.0, ESR 75. The last Venofer infusion was given in Jun, 2021. -Iron panel was not done. We will add the iron panel to her recent blood drawn today. -Labs reviewed: iron saturation 10%. I will schedule patient for another course of Venofer infusion. -I will see her back in 4 months to follow up with labs done a few days prior to the next visit. 07/15/2023: - Presents for 4 month follow up - Labs reviewed: WBC 9.3, hgb 11.2, MCV 86, plt 286,000, iron saturation 15%, ferritin 119 - s/p course of venofer in March 2023 - She reports no new or worsening symptoms, denies signs of bleeding - Continues to follow with GI for her Crohn's disease - Discussed with patient that her ferritin has had a great response to the IV iron and although her hgb 11.2 is below asad, it has improved and may continue to improve and that since she is feeling well and may also have anemia from her chronic diseases, I would recommend repeating labs in 8 weeks - Patient agrees with plan - She will call with questions, concerns or new/worsening symptoms in the meantime - RTC in 8 weeks with repeat labs 2. Crohn's diease -Currently on Humira injection once per week and azathiorpime. 3) DVT/PE -Provoked (acute illness in hospital stay) life threatening VTE in 07/2015. Mildly low protein S level during acute illness of unknown significance. Negative hypercoagulability panel otherwise. Well tolerated; however, protein S was checked at time of acute event--this should not have been done at that time as an acute clot lowers protein S so you cannot rule out protein S deficiency at that time; appropriate time to screen for hereditary thrombophilia would be AFTER a patient has completed course of anticoagulation -also, IBD (inflammatory bowel disease--both Crohn's and ulcerative colitis) confers acquired hypercoagulable state, so further thrombophilia workup is not necessary in this context -pt has now been off coumadin for several months -will recheck protein S antigen and activity - negative on 01/28/17 4) thyroid goiter - U/S on 07/2016 continues to show enlarged multinodular goiter Diagnoses and all orders for this visit: Iron deficiency anemia, unspecified iron deficiency anemia type - Clinic Appointment Request Follow Up; [facility]IIA [facility]ERNAL; [facility] - Clinic Appointment Request [facility]; Future - CBC and Auto Differential; Future - Comprehensive metabolic panel; Future - Iron and TIBC; Future - Ferritin; Future JOE Krishna documented in this encounter [facility] Work Phone: 04-22-2023 History of Present illness Narrative History Of Present Illness Lola is following up for nasal vestibulitis. She was previously seen by Dr. Bonilla. She states that her vestibulitis has improved. She did discontinue the use of the mupirocin and has noticed more crusting than when she was using it on a consistent basis. She denies bleeding. No other concerns at this time. There have been no changes to the review of systems other than those listed in the history of present illness. 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), Crohn's disease, unspecified, without complications (CMS/HCC) (11/08/2014), Cytomegaloviral disease, unspecified (CMS/HCC) (07/15/2016), Disorder of thyroid, unspecified, Epistaxis (07/09/2017), Hypertrophy of nasal turbinates (02/08/2019), 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 (07/09/2017), 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 (05/05/2017), Nontoxic multinodular goiter (07/13/2018), Other conditions influencing health status (01/29/2015), Other viral enteritis (03/25/2016), Papilledema associated with retinal disorder (12/25/2021), Papilledema associated with retinal disorder (10/01/2016), Papilledema associated with retinal disorder (10/12/2013), Periumbilical pain (07/09/2017), Personal history of diseases of the blood and blood-forming organs and certain disorders involving the immune mechanism, Personal history of diseases of the blood and blood-forming organs and certain disorders involving the immune mechanism, Personal history of other diseases of the nervous system and sense organs (06/15/2015), Personal history of other diseases of the respiratory system (12/23/2018), Personal history of other diseases of the respiratory system (09/21/2018), Personal history of other diseases of the respiratory system (02/08/2019), Personal history of other endocrine, nutritional and metabolic disease (10/01/2015), Personal history of other endocrine, nutritional and metabolic disease (10/26/2018), Personal history of other venous thrombosis and embolism (07/15/2016), Personal history of pulmonary embolism (07/15/2016), Thyrotoxicosis, unspecified without thyrotoxic crisis or storm, Unspecified adrenocortical insufficiency (CMS/HCC) (07/09/2017), Unspecified adrenocortical insufficiency (CMS/HCC) (07/09/2017), Unspecified chorioretinal inflammation, bilateral (12/25/2021), Unspecified chorioretinal inflammation, bilateral (10/03/2015), Unspecified papilledema (11/08/2014), Unspecified ptosis of right eyelid (12/25/2021), and Unspecified ptosis of right eyelid (07/24/2014). Surgical History She has a past surgical history that includes Other surgical history (09/16/2018); Other surgical history (06/01/2015); Gallbladder surgery; Thyroidectomy; and section, classic. Social History She reports that she has never smoked. She has never been exposed to tobacco smoke. She has never used smokeless tobacco. No history on file for alcohol use and drug use. Family History Family History Problem Relation Name Age of Onset Diabetes Mother Diabetes Father Diabetes type II Father Thrombosis Father Allergies Patient has no known allergies. Review of Systems Constitutional: Negative. HENT: Negative. Eyes: Negative. Respiratory: Negative. Cardiovascular: Negative. Gastrointestinal: Negative. Endocrine: Negative. Genitourinary: Negative. Musculoskeletal: Negative. Skin: Negative. Allergic/Immunologic: Negative. Neurological: Negative. Hematological: Negative. Psychiatric/Behavioral: Negative. These systems were reviewed and are negative unless otherwise stated in the HPI Physical Exam Constitutional General appearance: Healthy-appearing, well-nourished, well groomed, in no acute distress. Voice Ability to communicate: Normal communication without aids, normal voice quality assurance associate and Face Head and face: Atraumatic with no masses, lesions, or scarring. Salivary glands: No tenderness of the parotid glands or parotid masses. No tenderness of the submandibular glands or submandibular masses. Facial strength: Normal strength and symmetry, no synkinesis or facial tic. Eyes Pupils and irises: EOM intact, strabismus, PERRLA, conjunctiva non-injected. Ears External inspection of ears: Ears normally formed and free of lesions. Nose External inspection of nose: Dorsum symmetric with no visible or palpable deformities. No nasal lesions, lacerations, or scars. Nasal tip symmetrical with normal nasal valves. Nasal mucosa, septum, and turbinates: Septum not markedly deformed. Turbinates normal in size and confrontation. No polyps. Patient does have a mild amount of crusting bilaterally. There are no lesions or evidence of recent bleeding. Oral Cavity/Mouth Lips, teeth, and gums: Normal lips, gums, and dentition. Throat Oropharynx: Mucosa moist, no lesions. Hard and soft palate normal. Tongue normal, no lesions or edema. No tonsillar masses or lesions. Normal tongue base. Neck Neck: Symmetrical, trachea midline. Pulmonary Respiratory effort: Chest expands symmetrically. No audible wheeze. Cardiovascular Peripheral vascular system: No varicosities, carotid pulse normal, no edema. No jugular venous distension Lymphatic Palpation of cervical lymph nodes: No palpable lymph node enlargement, no submandibular adenopathy, no anterior cervical adenopathy, no supraclavicular adenopathy Neurological/Psychiatric Cranial nerves: Cranial nerves II - XII intact. Normal gait. No nystagmus Orientation to person, place, and time: Normal. Mood and affect: Normal. Extremities Appearance of extremities: Normal. Procedure After verbal consent and topical anesthesia a nasal endoscopy was performed. No lesions in the nasal cavity, middle meatus or sphenoethmoid recess were seen. No purulence was noted. Mild to moderate amount of intranasal crusting bilaterally, with no evidence of lesions. Last Recorded Vitals Blood pressure (!) 156/103, temperature 36.9 C (98.4 F). Relevant Results Prior to Admission medications Medication Sig Start Date End Date Taking? Authorizing Provider adalimumab (Humira Pen) 40 mg/0.4 mL pen injector kit pen-injector INJECT 40MG (1 PEN) UNDER THE SKIN ONCE WEEKLY DIRECTED. 01/06/23 01/06/24 Scarlett Martin, INTERNET MARKETING DIRECTOR-CRITICAL CARE PHYSICIAN azaTHIOprine (Imuran) 50 mg tablet Take 1.5 tablets (75 mg) by mouth once daily. alternating 1 tablet every other day 75mg 4xweekly 50mg 3xweekly 12/07/12 Historical Provider, azaTHIOprine (Imuran) 75 mg tablet Take by mouth once daily. 06/17/15 Historical Provider, cholecalciferol (Vitamin D-3) 50 mcg (2,000 unit) capsule Take 1 capsule (50 mcg) by mouth once daily. 10/09/21 Historical Provider, ergocalciferol (Vitamin D-2) 1.25 MG (19905 UT) capsule Take by mouth. 06/29/18 Historical Provider, fluticasone (Flonase) 50 mcg/actuation nasal spray Administer into affected nostril(s) once daily. 04/12/19 Historical Provider, levothyroxine (Synthroid, Levoxyl) 125 mcg tablet TAKE 1 TABLET BY MOUTH ONCE DAILY DIRECTED 04/14/23 Leoncio Sparrow MD polyethylene glycol-electrolytes 420 gram solution take as directed 04/29/22 Historical Provider, No results found. Assessment/Plan @ Problem List Items Addressed This Visit None We discussed resuming mupirocin as needed. I do not see any lesions that are concerning for malignancy at this time, the patient will notify me should her symptoms persist or worsen. She was also advised to avoid intranasal excoriations. Cherelle Zarate MD Facial Plastic & Reconstructive Surgery Otolaryngology - Head & Neck Surgery documented in this encounter [facility] Work Phone: 03-13-2023 History of Present illness Narrative Patient ID: Lola Higginbotham is a 32 y.o. female. Interval History: Ms. Higginbotham is a 27yo female with complicated Crohn's disease since 2011 , was hospitalized at [facility] in 07/2015 (1st since Dx) with a disease flare while on azathioprine and steroids , CMV colitis, sepsis and pancytopenia . Developed DVT-PE during hospitalization. She has a history of Fe deficiency anemia treated with IV Fe, reacted to Feraheme. 07/23/16 Patient is here to see if she will need IV iron sucrose. She had a colonoscopy on 08/17/15 which showed a fistula. She had an EGD on 07/11/10 which was negative. 04/02/17 pt is here to follow up after receiving 3 doses of IV iron sucrose on 02/16/17, 02/19/17 and 02/26/17. 10/12/18: recommended Venofer infusion 300 mg x 3 times 02/10/2020 Received Venofer 200mg x 5 for iron deficiency anemia, complicated by preganncy. July,: Received Venofer infusion 300 mg x 3 times. 06/24/2021 Currently 26 weeks , with REFUGIO 09/29/21. 07/01/21 to 07/15/21: Venofer infusion 200 mg x 5 times Patient was on Azathioprine from 2011 to 2019 and restarted it in July this year due to a flare-up of right eye uveitis. Subjective -Complains of fatigue. -Denies any bloody diarrhea. -States that she went to see her GI a few weeks ago and was advised to continue Humira injection once a week and azathioprine. -States that she saw her liquor commissioner on 03/04 due to history of Uveitis and was told that her Uveitis is controlled well. -Denies any other new health concerns. Social History Tobacco Use Smoking status: Never Passive exposure: Never Smokeless tobacco: Never Vaping Use Vaping Use: Never used Objective BMI: Body mass index is 36.76 kg/m . Vitals: Visit Vitals Smoking Status Never Vitals: 03/13/23 0938 BP: (!) 143/97 Pulse: 72 Resp: 16 Temp: 36.2 C (97.2 F) SpO2: 97% Review of Systems Constitutional: Positive for fatigue. Negative for appetite change, chills and diaphoresis. HENT: Negative for lump/mass, mouth sores and nosebleeds. Eyes: Negative for eye problems and icterus. Respiratory: Negative. Cardiovascular: Negative. Gastrointestinal: Negative for abdominal distention, abdominal pain, constipation, diarrhea, nausea and vomiting. Genitourinary: Negative for bladder incontinence, difficulty urinating, frequency and hematuria. Musculoskeletal: Negative for gait problem, neck pain and neck stiffness. Skin: Negative for itching, rash and wound. Neurological: Negative for dizziness, gait problem, headaches, numbness and speech difficulty. Hematological: Negative. Psychiatric/Behavioral: Negative for confusion and decreased concentration. Physical Exam HENT: Head: Normocephalic. Nose: Nose normal. Mouth/Throat: Mouth: Mucous membranes are moist. Eyes: Pupils: Pupils are equal, round, and reactive to light. Cardiovascular: Rate and Rhythm: Normal rate and regular rhythm. Pulses: Normal pulses. Heart sounds: Normal heart sounds. Pulmonary: Effort: Pulmonary effort is normal. Breath sounds: Normal breath sounds. Abdominal: General: Bowel sounds are normal. Palpations: Abdomen is soft. Musculoskeletal: General: Normal range of motion. Skin: General: Skin is warm and dry. Neurological: General: No focal deficit present. Mental Status: She is alert and oriented to person, place, and time. Psychiatric: Mood and Affect: Mood normal. Behavior: Behavior normal. Labs: Lab Results Component Value Date WBC 10.1 03/10/2023 NEUTROABS 6.22 03/10/2023 IGABSOL 0.01 03/10/2023 LYMPHSABS 3.33 03/10/2023 MONOSABS 0.42 03/10/2023 EOSABS 0.09 03/10/2023 BASOSABS 0.04 03/10/2023 RBC 4.01 03/10/2023 MCV 85 03/10/2023 MCHC 31.4 (L) 03/10/2023 HGB 10.7 (L) 03/10/2023 HCT 34.1 (L) 03/10/2023 PLT 323 03/10/2023 No results found for: RETICCTPCT Lab Results Component Value Date CREATININE 0.83 08/19/2022 BUN 12 08/19/2022 NA 138 08/19/2022 K 3.8 08/19/2022 CL 104 08/19/2022 CO2 28 08/19/2022 Lab Results Component Value Date ALT 13 08/19/2022 AST 22 08/19/2022 ALKPHOS 43 08/19/2022 BILITOT 0.5 08/19/2022 Lab Results Component Value Date TSH 0.02 (L) 11/26/2021 Lab Results Component Value Date TSH 0.02 (L) 11/26/2021 [id number] 106 06/28/2018 THYROIDPAB <10 05/05/2017 Lab Results Component Value Date IRON 56 01/07/2023 TIBC 302 01/07/2023 FERRITIN 24 03/10/2023 Lab Results Component Value Date [id number] 349 11/26/2021 Lab Results Component Value Date FOLATE 7.7 11/26/2021 Lab Results Component Value Date RUBI NEGATIVE 11/16/2018 RF <10 11/16/2018 SEDRATE 75 (H) 03/10/2023 Lab Results Component Value Date CRP CANCELED 01/07/2023 Performance Status: Symptomatic; fully ambulatory Assessment/Plan Anemia -multifactorial: anemia of chronic disease and Fe deficiency (GI blood loss and malabsorption due to Crohn's since 2011). -S/p a multiple of IV iron infusion with a good response as described above. -Labs done on 03/10/23: Hgb 10.7, MCV 85, ferritin 24, CRP 5.0, ESR 75. The last Venofer infusion was given in Jun, 2021. -Iron panel was not done. We will add the iron panel to her recent blood drawn today. -Labs reviewed: iron saturation 10%. I will schedule patient for another course of Venofer infusion. -I will see her back in 4 months to follow up with labs done a few days prior to the next visit. 2. Crohn's diease -Currently on Humira injection once per week and azathiorpime. 3) DVT/PE -Provoked (acute illness in hospital stay) life threatening VTE in 07/2015. Mildly low protein S level during acute illness of unknown significance. Negative hypercoagulability panel otherwise. Well tolerated; however, protein S was checked at time of acute event--this should not have been done at that time as an acute clot lowers protein S so you cannot rule out protein S deficiency at that time; appropriate time to screen for hereditary thrombophilia would be AFTER a patient has completed course of anticoagulation -also, IBD (inflammatory bowel disease--both Crohn's and ulcerative colitis) confers acquired hypercoagulable state, so further thrombophilia workup is not necessary in this context -pt has now been off coumadin for several months -will recheck protein S antigen and activity - negative on 01/28/17 4) thyroid goiter - U/S on 07/2016 continues to show enlarged multinodular goiter Problem List Items Addressed This Visit ICD-10-CM Anemia - Primary D64.9 Relevant Orders Clinic Appointment Request Follow Up; MARIIA BERNAL; [facility] Vitamin B12 Iron and TIBC Ferritin CBC and Auto Differential Mariia Bernal PA-C documented in this encounter [facility] Work Phone: 03-13-2023 Instructions Mariia Bernal PA-C - 03/13/2023 9:30 AM EDT Your iron levels are low. We will schedule you for another course of IV Venofer infusion. I will see you back in 4 months to follow up with labs done a few days prior to the next visit. documented in this encounter [facility] Work Phone: 02-17-2023 History of Present illness Narrative Subjective Patient ID: Lola Higginbotham is a 32 y.o. female who presents for follow up for Crohn's. Overall feeling well. Moves bowels 1-2 times daily. Denies blood in stool. Denies NVD. HPI Patient was last seen in the GI clinic by Dr. Orozco in August 2022. She feels well. Moves her bowels once or twice a day. Denies rectal bleeding or melena. She denies abdominal pain, bloating, nausea, vomiting, reflux or dysphagia. Her weight and appetite are stable Her last colonoscopy was in April 2022. Crohn score was 0. Advised to repeat in 3 to 5 years for surveillance. Blood tests were checked in December 2022. CRP was canceled. Ferritin level was 34. Hemoglobin 11.4. Continues to inject with Humira 40 mg once a week and takes azathioprine in alternating doses throughout the week for history of uveitis. 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 She denies oral sores, anal sores, joint pain, swelling, skin rashes, lesions or painful nodules Review of Systems Constitutional: Negative. HENT: Negative. Eyes: Negative. Respiratory: Negative. Cardiovascular: Negative. Gastrointestinal: Negative. Endocrine: Negative. Genitourinary: Negative. Musculoskeletal: Negative. Skin: Negative. Objective Physical Exam Constitutional: Appearance: Normal appearance. HENT: Head: Normocephalic. Nose: Nose normal. Cardiovascular: Rate and Rhythm: Normal rate and regular rhythm. Pulmonary: Effort: Pulmonary effort is normal. Breath sounds: Normal breath sounds. Abdominal: General: Abdomen is flat. Palpations: Abdomen is soft. Genitourinary: Rectum: Normal. Musculoskeletal: General: Normal range of motion. Cervical back: Normal range of motion and neck supple. Neurological: General: No focal deficit present. Mental Status: She is oriented to person, place, and time. Psychiatric: Mood and Affect: Mood normal. Behavior: Behavior normal. Assessment/Plan 1. continue Humira 40 mg subcutaneous injection once each week 2. Continue azathioprine alternating dosing as you are doing 3. follow-up with Dr. Orozco in the GI clinic in 6 to 7 months. The office will call you to schedule you for the appointment 4. Check iron and 6MMP drug level within the next 1 to 2 months documented in this encounter [facility] Work Phone: 04-17-2022 History of Present illness Narrative here for f/u crohnsdoing well on weekly humira and azathioprine - AZN added due to uveitis - previous dose 75mg 4x aweek, 50mg 3x a weekdue to inject 4/6daily BM's--denies blood mucous or melenalast colonoscopy 04/2022--no active diseasethe patient denies any skin rashes, joint pain or stiffness, mucous membrane ulcerations, or eye pain/visual disturbances.weight stable appetite nlfeels well overall [facility] Work Phone: 02-17-2022 History of Present illness Narrative 31 yo female with history of Crohn's disease involving the small bowel and colon. S/P ileocolic resection in 2015. She delivered her baby girl (Serenity) 8 weeks ago - . She has not resumed Humira injections. She had been on weekly Humira. Stopped Humira in August 2021. She has a h/o iron def anemia and Vit B12 def.Health Maintenance:Has not had COVID vaccinesDoes not get yearly flu vaccineIs up-to-date on her other vaccines including Tdap and HPVFeels wellMoves her bowels usually once or twice a dayDenies hematochezia, melena or abdominal painDenies reflux, nausea, vomiting, dysphagia or early satietyReports fatigueDenies eye pain, visual changes, joint pain or swelling, skin rashes, lesions or painful nodulesUpper Gastrointestinal: no abdominal pain, no eructation, no difficulty swallowing, no early satiety, no heartburn, no jaundiced, no nausea, no pain while swallowing, no regurgitation, no vomiting.Lower Gastrointestinal: no abdominal swelling, no bloating, no constipation, no diarrhea, no fecal incontinence, no bowel urgency, no steatorrhea.Gastrointestinal Bleeding: no bright red blood per rectum, no hematemesis, no maroon stools, no melena/black stool, not vomiting 'coffee grounds' material.Symptom History:Modifying Factors:Associated Symptoms: [facility] Work Phone: 02-05-2022 History of Present illness Narrative 31 yo female with history of Crohn's disease involving the small bowel and colon. S/P ileocolic resection in 2015. She delivered her baby girl (Serenity) 8 weeks ago - . She has not resumed Humira injections. She had been on weekly Humira. Stopped Humira in August 2021. She has a h/o iron def anemia and Vit B12 def.Health Maintenance:Has not had COVID vaccinesDoes not get yearly flu vaccineIs up-to-date on her other vaccines including Tdap and HPVFeels wellMoves her bowels usually once or twice a dayDenies hematochezia, melena or abdominal painDenies reflux, nausea, vomiting, dysphagia or early satietyReports fatigueDenies eye pain, visual changes, joint pain or swelling, skin rashes, lesions or painful nodulesUpper Gastrointestinal: no abdominal pain, no eructation, no difficulty swallowing, no early satiety, no heartburn, no jaundiced, no nausea, no pain while swallowing, no regurgitation, no vomiting.Lower Gastrointestinal: no abdominal swelling, no bloating, no constipation, no diarrhea, no fecal incontinence, no bowel urgency, no steatorrhea.Gastrointestinal Bleeding: no bright red blood per rectum, no hematemesis, no maroon stools, no melena/black stool, not vomiting 'coffee grounds' material.Symptom History:Modifying Factors:Associated Symptoms: [facility] Work Phone: 10-02-2021 Note DISCHARGE SUMMARY DISCHARGE DATE: 10/03/2021 PRIMARY DIAGNOSES: 1. Status post section post-op day 9. 2. Presented with elevated blood pressure 160s/110s. HOSPITAL COURSE: Patient was re-admitted for observation. Patient was started on labetalol and placed on magnesium drip. Patient's blood pressure subsequently continued to come down. Patient was monitored for over 24 hours. Magnesium was stopped. Patient was then observed and sent home with a script for blood pressure meds that had normalized. LABORATORY DATA: Please see chart. DISCHARGE CONDITION: Stable. DISCHARGE INSTRUCTIONS: 1. Diet: Regular. 2. Medications: Labetalol 200 mg one p.o. b.i.d. #60. 3. Patient was given precautions. 4. Patient was instructed to follow up with Dr. Ferraro within 2-3 days. 5. Activity to continue as instructed status post section. [facility] Signed and Approved by: DR MENA CHERY . 11/12/2021 22:12:[address] [facility] 10-01-2021 History of Present illness Narrative 31 yo female with history of Crohn's disease involving the small bowel and colon. S/P ileocolic resection in 2015. She delivered her baby girl (Serenity) 8 weeks ago - . She has not resumed Humira injections. She had been on weekly Humira. Stopped Humira in August 2021. She has a h/o iron def anemia and Vit B12 def.Health Maintenance:Has not had COVID vaccinesDoes not get yearly flu vaccineIs up-to-date on her other vaccines including Tdap and HPVFeels wellMoves her bowels usually once or twice a dayDenies hematochezia, melena or abdominal painDenies reflux, nausea, vomiting, dysphagia or early satietyReports fatigueDenies eye pain, visual changes, joint pain or swelling, skin rashes, lesions or painful nodulesUpper Gastrointestinal: no abdominal pain, no eructation, no difficulty swallowing, no early satiety, no heartburn, no jaundiced, no nausea, no pain while swallowing, no regurgitation, no vomiting.Lower Gastrointestinal: no abdominal swelling, no bloating, no constipation, no diarrhea, no fecal incontinence, no bowel urgency, no steatorrhea.Gastrointestinal Bleeding: no bright red blood per rectum, no hematemesis, no maroon stools, no melena/black stool, not vomiting 'coffee grounds' material.Symptom History:Modifying Factors:Associated Symptoms: -[facility] Work Phone: 01-21-2019 History of Present illness Narrative Patient is a 31 year old female presenting today for a follow-up of nasal congestion. The patient has been compliant in her ointment usage, and notes no new or worsening symptoms. She no longer works for [employer] but is still at her original job that she has had for the past three years. [facility]wg[facility]vujpmrf-Rwcjy[facility] Work Phone: 06-28-2018 History of Present illness Narrative Ms. 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 Due to loss of continuity ,until her 8 months of LT4 dose was increased from 125 mcg to 175 mcg once daily. We last saw her on 05/2020, 6 weeks after delivery, LT4 dose was down titrated back to 125 mcg once daily. No complications during or after pregnancyINTERVAL HX:Today patient presents to the clinic with 18 weeks of of 2nd baby. Due date on August 2021. Patient reports that Synthroid dose was increased about a month ago to 175 mcg once daily from 125 mcg once daily by [employer]. Overall she reports feeling well and so far no complications of . She feels excited of having a baby girl. She is following [employer] high risk in [place] due to underlying hx of DVT.Regimen:- LT4 175 mcg PO QAM increased about 1 month ago. Taking as indicated- Vitamin D 34762 units weeklySx of hyper- or hypothyroidism:Compressive sx: noneEnergy: goodSleep: adequateMoods : stableEye symptoms: no teary eye or painDysphagia: noneNew neck lump: noneDyspnea: occasional at high exertionCough: nonePalpitations: noneTremor: noneTemperature:none heat/cold intoleranceMuscle cramps: noneWeight change: stableChange in bowel movements: nonePatient is taking levothyroxine? yesSteroids: noneBlood thinners: yesROS: 10 point review of systems was otherwise negative except per the HPI.[employer] hx-G2, P1, A0. Las : 03/2020-LMP: November,-Patient planning for .-Unsure if wants to do control after pregnancyROS: 10 point negative, except for detailed in HPI [facility] [address] Work Phone: Evaluation note Diagnosis Iron deficiency anemia, unspecified iron deficiency anemia type- Primary Iron malabsorption Other specified intestinal malabsorption Iron deficiency anemia due to chronic blood loss Iron deficiency anemia secondary to blood loss (chronic) documented in this encounter [facility] Work Phone: [phone] note* Diagnosis Crohn's disease of both small and large intestine without complication (CMS/HCC)- Primary documented in this encounter [facility] Work Phone: [phone] note* Diagnosis Nasal vestibulitis- Primary Other diseases of nasal cavity and sinuses documented in this encounter [facility] Work Phone: [phone] note* Diagnosis Iron deficiency anemia, unspecified iron deficiency anemia type documented in this encounter [facility] Work Phone: [phone] note* Diagnosis Crohn's disease of small and large intestines with complication (Multi)- Primary documented in this encounter [facility] Work Phone: [phone] note* Diagnosis Iron deficiency anemia due to chronic blood loss- Primary Iron deficiency anemia secondary to blood loss (chronic) Iron deficiency anemia, unspecified iron deficiency anemia type Iron malabsorption (HHS-HCC) Other specified intestinal malabsorption documented in this encounter [facility] Work Phone: Evaluation note* Diagnosis Iron deficiency anemia, unspecified iron deficiency anemia type- Primary Iron malabsorption (HHS-HCC) Other specified intestinal malabsorption documented in this encounter [facility] Work Phone: Evaluation note* Diagnosis Crohn's disease of small and large intestines with complication (Multi)- Primary documented in this encounter [facility] Work Phone: Evaluation noteNo assessment information available [facility] Work Phone: History of Present illness [id number] y/o female presenting for a follow-up for nasal congestion. Patient states that her nasal symptoms have been stable. She uses saline solution occasionally when she experiences nasal congestion. Denies any ear issues or using Q-tips. EV-Jjkuyvlkwkxcvy-Fkeaapoz SJW Work Phone: History of Present illness [id number] y/o female presenting for a follow-up for nasal congestion. She has been able to control her nasal symptoms well. Patient performs nasal rinses regularly and uses the Mupirocin nasal ointment whenher nose becomes dry. Otherwise, patient is doing well and denies any new or worsening symptoms.FQ-Qbooyboztsfcsd-Iwmxfaa Voice Work Phone: History of Present illness [id number] y/o female presenting for a follow-up for nasal congestion. She states that her symptoms remain stable and fairly well controlled. Patient uses nasal spray and Mupirocin nasal ointment regularly, will have congestion and dryness if she does not. Otherwise, patient is doing well and denies any new or worsening symptoms. PU-Wwusnvfihjjqul-Eigqbyww SJW 250 Work Phone: History of Present illness NarrativePatient is a 31 year old female, presenting for follow up of nasal congestion. Patient states no new or worsening symptoms. Her congestion has been about the same. There is no associated pain. She iscurrently off on maternity leave. She has not really been using the ointment.ZA-Qmmffblrmefwmy-Nxwhxklp SJW 250 Work Phone: History of Present illness NarrativePatient is a 31 year old female presenting today for a follow-up of nasal congestion. She reports using her ointment occasionally and no new or worsening symptoms. DJ-Zhixdmerajmhtk-Tqttkorf 3530 Work Phone: History of Present illness NarrativePatient is a 32 year old female presenting today for a follow-up of nasal congestion and chronic nasal crusting. She is doing well with no complaints and no new or worsening symptoms.TT-Xaznrmdyrprnqv-Ryiicpld SJW 250 Work Phone: Summary Purpose Family History No Family History Records Found Father Name Dates Details Family history of Diabetes M ellitus(V18.0) Status:Active Family history of Thrombosis , portal vein(452, I81) Status:Active Family history of type 2 khanh betes mellitus(V18.0, Z83.3) Status:Active Father Name Dates Details Family history of Diabetes M ellitus(V18.0) Status:Active Family history of Thrombosis , portal vein(452, I81) Status:Active Family history of type 2 khanh betes mellitus(V18.0, Z83.3) Status:Active Father Name Dates Details Family history of Diabetes M ellitus(V18.0) Status:Active Family history of Thrombosis , portal vein(452, I81) Status:Active Family history of type 2 khanh betes mellitus(V18.0, Z83.3) Status:Active Father Name Dates Details Family history of Diabetes M ellitus(V18.0) Status:Active Family history of Thrombosis , portal vein(452, I81) Status:Active Family history of type 2 khanh betes mellitus(V18.0, Z83.3) Status:Active Father Name Dates Details Family history of Diabetes M ellitus(V18.0) Status:Active Family history of Thrombosis , portal vein(452, I81) Status:Active Family history of type 2 khanh betes mellitus(V18.0, Z83.3) Status:Active Father Name Dates Details Family history of Diabetes M ellitus(V18.0) Status:Active Family history of Thrombosis , portal vein(452, I81) Status:Active Family history of type 2 khanh betes mellitus(V18.0, Z83.3) Status:Active Father Name Dates Details Family history of Diabetes M ellitus(V18.0) Status:Active Family history of Thrombosis , portal vein(452, I81) Status:Active Family history of type 2 khanh betes mellitus(V18.0, Z83.3) Status:Active Father Name Dates Details Family history of Diabetes Marivel sanders(V18.0) Status:Active Family history of Thrombosis , portal vein(452, I81) Status:Active Family history of type 2 khanh betes mellitus(V18.0, Z83.3) Status:Active Father Name Dates Details Family history of Diabetes Marivel sanders(V18.0) Status:Active Family history of Thrombosis , portal vein(452, I81) Status:Active Family history of type 2 khanh betes mellitus(V18.0, Z83.3) Status:Active Father Name Dates Details Family history of Diabetes Marivel sanders(V18.0) Status:Active Family history of Thrombosis , portal vein(452, I81) Status:Active Family history of type 2 khanh betes mellitus(V18.0, Z83.3) Status:Active Father Name Dates Details Family history of Diabetes Marivel sanders(V18.0) Status:Active Family history of Thrombosis , portal vein(452, I81) Status:Active Family history of type 2 khanh betes mellitus(V18.0, Z83.3) Status:Active Father Name Dates Details Family history of Diabetes Marivel sanders(V18.0) Status:Active Family history of Thrombosis , portal vein(452, I81) Status:Active Family history of type 2 khanh betes mellitus(V18.0, Z83.3) Status:Active Unknown Family Member Name Dates Details Diabetes Mellitus: Father(V1 8.0) Status:Active Thrombosis, 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 Family history of type 2 khanh betes mellitus: Father(V18.0, Z83.3) Status:Active Unknown Family Member Name Dates Details Diabetes Mellitus: Father(V1 8.0) Status:Active Thrombosis, 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 Family history of type 2 khanh betes mellitus: Father(V18.0, Z83.3) Status:Active Unknown Family Member Name Dates Details Diabetes Mellitus: Father(V1 8.0) Status:Active Thrombosis, 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 Family history of type 2 khanh betes mellitus: Father(V18.0, Z83.3) Status:Active Unknown Family Member Name Dates Details Diabetes Mellitus: Father(V1 8.0) Status:Active Thrombosis, 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 Family history of type 2 khanh betes mellitus: Father(V18.0, Z83.3) Status:Active Unknown Family Member Name Dates Details Diabetes Mellitus: Father(V1 8.0) Status:Active Thrombosis, 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 Family history of type 2 khanh betes mellitus: Father(V18.0, Z83.3) Status:Active Unknown Family Member Name Dates Details Diabetes Mellitus: Father(V1 8.0) Status:Active Thrombosis, 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 Family history of type 2 khanh betes mellitus: Father(V18.0, Z83.3) Status:Active Unknown Family Member Name Dates Details Diabetes Mellitus: Father(V1 8.0) Status:Active Family history of type 2 khanh betes mellitus: Father(V18.0, Z83.3) Status:Active Thrombosis, 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 Unknown Family Member Name Dates Details Diabetes Mellitus: Father(V1 8.0) Status:Active Family history of type 2 khanh betes mellitus: Father(V18.0, Z83.3) Status:Active Thrombosis, 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 Unknown Family Member Name Dates Details Diabetes Mellitus: Father(V1 8.0) Status:Active Thrombosis, 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 Family history of type 2 khanh betes mellitus: Father(V18.0, Z83.3) Status:Active Unknown Family Member Name Dates Details Diabetes Mellitus: Father(V1 8.0) Status:Active Thrombosis, 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 Family history of type 2 khanh betes mellitus: Father(V18.0, Z83.3) Status:Active Unknown Family Member Name Dates Details Diabetes Mellitus: Father(V1 8.0) Status:Active Thrombosis, 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 Family history of type 2 khanh betes mellitus: Father(V18.0, Z83.3) Status:Active Unknown Family Member Name Dates Details Diabetes Mellitus: Father(V1 8.0) Status:Active Thrombosis, 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 Family history of type 2 khanh betes mellitus: Father(V18.0, Z83.3) Status:Active Unknown Family Member Name Dates Details Diabetes Mellitus: Father(V1 8.0) Status:Active Thrombosis, 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 Family history of type 2 khanh betes mellitus: Father(V18.0, Z83.3) Status:Active Unknown Family Member Name Dates Details Diabetes Mellitus: Father(V1 8.0) Status:Active Thrombosis, 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 Family history of type 2 khanh betes mellitus: Father(V18.0, Z83.3) Status:Active Unknown Family Member Name Dates Details Diabetes Mellitus: Father(V1 8.0) Status:Active Thrombosis, 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 Family history of type 2 khanh betes mellitus: Father(V18.0, Z83.3) Status:Active Unknown Family Member Name Dates Details Diabetes Mellitus: Father(V1 8.0) Status:Active Thrombosis, 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 Family history of type 2 khanh betes mellitus: Father(V18.0, Z83.3) Status:Active Unknown Family Member Name Dates Details Diabetes Mellitus: Father(V1 8.0) Status:Active Thrombosis, 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 Family history of type 2 khanh betes mellitus: Father(V18.0, Z83.3) Status:Active Unknown Family Member Name Dates Details Diabetes Mellitus: Father(V1 8.0) Status:Active Family history of type 2 khanh betes mellitus: Father(V18.0, Z83.3) Status:Active Thrombosis, 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 Unknown Family Member Name Dates Details Diabetes Mellitus: Father(V1 8.0) Status:Active Thrombosis, 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 Family history of type 2 khanh betes mellitus: Father(V18.0, Z83.3) Status:Active Unknown Family Member Name Dates Details Diabetes Mellitus: Father(V1 8.0) Status:Active Family history of type 2 khanh betes mellitus: Father(V18.0, Z83.3) Status:Active Thrombosis, 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 Unknown Family Member Name Dates Details Diabetes Mellitus: Father(V1 8.0) Status:Active Thrombosis, 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 Family history of type 2 khanh betes mellitus: Father(V18.0, Z83.3) Status:Active Unknown Family Member Name Dates Details Diabetes Mellitus: Father(V1 8.0) Status:Active Thrombosis, 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 Family history of type 2 khanh betes mellitus: Father(V18.0, Z83.3) Status:Active Unknown Family Member Name Dates Details Diabetes Mellitus: Father(V1 8.0) Status:Active Thrombosis, 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 Family history of type 2 khanh betes mellitus: Father(V18.0, Z83.3) Status:Active Unknown Family Member Name Dates Details Diabetes Mellitus: Father(V1 8.0) Status:Active Family history of type 2 khanh betes mellitus: Father(V18.0, Z83.3) Status:Active Thrombosis, 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 Unknown Family Member Name Dates Details Diabetes Mellitus: Father(V1 8.0) Status:Active Family history of type 2 khanh betes mellitus: Father(V18.0, Z83.3) Status:Active Thrombosis, 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 Unknown Family Member Name Dates Details Diabetes Mellitus: Father(V1 8.0) Status:Active Family history of type 2 khanh betes mellitus: Father(V18.0, Z83.3) Status:Active Thrombosis, 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 Unknown Family Member Name Dates Details Diabetes Mellitus: Father(V1 8.0) Status:Active Thrombosis, 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 Family history of type 2 khanh betes mellitus: Father(V18.0, Z83.3) Status:Active Unknown Family Member Name Dates Details Diabetes Mellitus: Father(V1 8.0) Status:Active Thrombosis, 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 Family history of type 2 khanh betes mellitus: Father(V18.0, Z83.3) Status:Active Unknown Family Member Name Dates Details Diabetes Mellitus: Father(V1 8.0) Status:Active Family history of type 2 khanh betes mellitus: Father(V18.0, Z83.3) Status:Active Thrombosis, 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 Unknown Family Member Name Dates Details Diabetes Mellitus: Father(V1 8.0) Status:Active Thrombosis, 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 Family history of type 2 khanh betes mellitus: Father(V18.0, Z83.3) Status:Active Unknown Family Member Name Dates Details Diabetes Mellitus: Father(V1 8.0) Status:Active Thrombosis, 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 Family history of type 2 khanh betes mellitus: Father(V18.0, Z83.3) Status:Active Unknown Family Member Name Dates Details Diabetes Mellitus: Father(V1 8.0) Status:Active Thrombosis, 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 Family history of type 2 khanh betes mellitus: Father(V18.0, Z83.3) Status:Active Unknown Family Member Name Dates Details Diabetes Mellitus: Father(V1 8.0) Status:Active Thrombosis, 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 Family history of type 2 khanh betes mellitus: Father(V18.0, Z83.3) Status:Active Unknown Family Member Name Dates Details Diabetes Mellitus: Father(V1 8.0) Status:Active Thrombosis, 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 Family history of type 2 khanh betes mellitus: Father(V18.0, Z83.3) Status:Active Unknown Family Member Name Dates Details Diabetes Mellitus: Father(V1 8.0) Status:Active Thrombosis, 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 Family history of type 2 khanh betes mellitus: Father(V18.0, Z83.3) Status:Active Unknown Family Member Name Dates Details Diabetes Mellitus: Father(V1 8.0) Status:Active Thrombosis, 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 Family history of type 2 khanh betes mellitus: Father(V18.0, Z83.3) Status:Active Unknown Family Member Name Dates Details Diabetes Mellitus: Father(V1 8.0) Status:Active Thrombosis, 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 Family history of type 2 khanh betes mellitus: Father(V18.0, Z83.3) Status:Active Unknown Family Member Name Dates Details Diabetes Mellitus: Father(V1 8.0) Status:Active Thrombosis, 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 Family history of type 2 khanh betes mellitus: Father(V18.0, Z83.3) Status:Active Unknown Family Member Name Dates Details Diabetes Mellitus: Father(V1 8.0) Status:Active Thrombosis, 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 Family history of type 2 khanh betes mellitus: Father(V18.0, Z83.3) Status:Active Unknown Family Member Name Dates Details Diabetes Mellitus: Father(V1 8.0) Status:Active Thrombosis, 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 Family history of type 2 khanh betes mellitus: Father(V18.0, Z83.3) Status:Active Unknown Family Member Name Dates Details Diabetes Mellitus: Father(V1 8.0) Status:Active Thrombosis, 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 Family history of type 2 khanh betes mellitus: Father(V18.0, Z83.3) Status:Active Unknown Family Member Name Dates Details Diabetes Mellitus: Father(V1 8.0) Status:Active Thrombosis, 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 Family history of type 2 khanh betes mellitus: Father(V18.0, Z83.3) Status:Active Unknown Family Member Name Dates Details Diabetes Mellitus: Father(V1 8.0) Status:Active Thrombosis, 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 Family history of type 2 khanh betes mellitus: Father(V18.0, Z83.3) Status:Active Unknown Family Member Name Dates Details Diabetes Mellitus: Father(V1 8.0) Status:Active Thrombosis, 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 Family history of type 2 khanh betes mellitus: Father(V18.0, Z83.3) Status:Active Advance Directives No Advanced Directives Records Found Advance Directive Response Recorded Date/ Time Advance Directives No February 27, 2017 4:13pm Chief Complaint F/U nasal congestionF/U nasal congestionF/U nasal congestionHere for change in thyroid medication.nasal congestionFUV - Nasal Congestion* F/U- Crohns * states feels well * stopped Humira in August 2021 - had a baby girl in September 2021 - F/u for nasal congestion* F/U- Crohns * states feels well * stopped Humira in August 2021 - had a baby girl in September 2021 - * F/U- Crohns * states feels well * stopped Humira in August 2021 - had a baby girl in September 2021 - FUV- Nasal congestionf/u crohnsFUV- Nasal congestion Additional Source Comments INFORMATION SOURCE (unrecogn ized section and content) DATE CREATED AUTHOR 07/22/2018 [facility] DATE CREATED AUTHOR AUTHOR'S ORGANIZ ATION 08/27/2018 [facility] DATE CREATED AUTHOR AUTHOR'S ORGANIZ ATION 04/04/2021 [facility] DATE CREATED AUTHOR AUTHOR'S ORGANIZ ATION 06/24/2021 [facility] DATE CREATED AUTHOR AUTHOR'S ORGANIZ ATION 07/09/2022 [facility] DATE CREATED AUTHOR AUTHOR'S ORGANIZ ATION 12/11/2022 [facility] DATE CREATED AUTHOR AUTHOR'S ORGANIZ ATION 12/11/2022 [facility] DATE CREATED AUTHOR AUTHOR'S ORGANIZ ATION 01/10/2023 [facility] DATE CREATED AUTHOR AUTHOR'S ORGANIZ ATION 02/20/[address] [facility] DATE CREATED AUTHOR AUTHOR'S ORGANIZ ATION 03/10/2024 [facility] DATE CREATED AUTHOR AUTHOR'S ORGANIZ ATION 03/29/2024 [facility] DATE CREATED AUTHOR AUTHOR'S ORGANIZ ATION 04/14/2024 [facility] Reason for Visit (unrecogniz ed section and content) Reason Comments Follow-up Reason Comments Crohn's Disease Patient presents for crohn's follow up. Humira every 7 days. Last colon 05/[address] Browning. Azothiaprine 75 and 50 mg. Care Teams (unrecognized sec tion and content) Side Piece Coverer Relationship Specialty [place] [id number] [facility] [address] [place] [address] PCP - General 08/11/16 Mariia Bernal PA-C [id number] [facility] [address] [place] [address] PCP - [facility] Medicaid PCP 11/15/22 Side Piece Coverer Relationship Specialty [place] [id number] [facility] [address] [place] [address] PCP - General 08/11/16 Mariia Bernal PA-C [id number] [facility] [address] [place] [address] PCP - [facility] Medicaid PCP 11/15/22 Side Piece Coverer Relationship Specialty Start Date End Date [place] Orozcoie [place] Mel[place] [id number] [facility] [address] [place] [address] PCP - General 08/11/16 Mariia Bernal PA-C [id number] [facility] [address] [place] [address] PCP - [facility] Medicaid PCP 11/15/22 Side Piece Coverer Relationship Specialty Start [place] [address] [facility] [address] [place] [address] PCP - General 08/11/16 Mariia Bernal PA-C Office Address Unavailable as of 07/04/2023 PCP - [facility] Medicaid PCP 11/15/22 Side Piece Coverer Relationship Specialty Start [place] [address] [address] PCP - General 08/11/16 Mariia Bernal PA-C Office Address Unavailable as of 07/04/2023 PCP - [facility] Medicaid PCP 11/15/22 Side Piece Coverer Relationship Specialty Start [place] [address] [address] PCP - General 08/11/16 Mariia Bernal PA-C Office Address Unavailable as of 07/04/2023 PCP - [facility] Medicaid PCP 11/15/22 Mariia Bernal PA-C Office Address Unavailable as of 07/04/2023 PCP - [facility] PCP 05/18/23 Side Piece Coverer Relationship Specialty Start [place] [address] [place] [address] PCP - General 08/11/16 Mariia Bernal PA-C Office Address Unavailable as of 07/04/2023 PCP - [facility] Medicaid PCP 11/15/22 Mariia Bernal PA-C Office Address Unavailable as of 07/04/2023 PCP - [facility] PCP 05/18/23 Side Piece Coverer Relationship Specialty Start [place] [address] [place] [address] PCP - General 08/11/16 Mariia Bernal PA-C Office Address Unavailable as of 07/04/2023 PCP - [facility] Medicaid PCP 11/15/22 Mariia Bernal PA-C Office Address Unavailable as of 07/04/2023 PCP - [facility] PCP 05/18/23 Team Status: Inactive Member Role Status Dates Kendra Garcia MD Attending Provider Active Start: March 31, 2024 End: March 31, 2024 Goals (unrecognized section and content) Goals may be documented in a n alternate section FOR RECORDS PERTAINING TO PATIENTS WHO ARE OR HAVE BEEN ENROLLED IN A CHEMICAL DEPENDENCY/SUBSTANCEABUSE PROGRAM, SOME INFORMATION MAY BE OMITTED. This clinical summary was aggregated from multiple sources. Caution should be exercised in using it in the provision of clinical care. This summary normalizes information from multiple sources, and as a consequence, information in this document may materially change the coding, format and clinical context of patient data. In addition, data may be omitted in some cases. CLINICAL DECISIONS SHOULD BE BASED ON THE PRIMARY CLINICAL RECORDS. [facility]. provides no warranty or guarantee of the accuracy or completeness of information in this document.
[2024-04-15 23:27] VITALS: BP 139/100; PULSE 92; TEMP 36.6; O2SAT 99; BMI 35.4
--- NOTE | 2024-04-16 00:18 | CT_ITS ---
The [address] [address] Patient Name: LUZ HIGGINBOTHAM MRN: [id number] date: 1990 Sex: F Assigned Patient Location: ER Current Patient Location: ER Accession/Order Number: [id number] Exam Date: 04/16/2024 01:15 Report Date: 04/16/2024 04:37 At the request of: ROBERT FOUNTAIN Procedure: CT abdomen pelvis w con EXAM: CT abdomen pelvis w con HISTORY: abd pain, hx crohn's COMPARISON: CTA chest abdomen pelvis, 07/07/2018. TECHNIQUE: IV contrast enhanced CT imaging of the abdomen and pelvis was performed using 100 mL of Omnipaque 300 intravenous contrast. Sagittal and coronal reconstructions are provided. Dose reduction techniques were achieved by using automated exposure control and/or adjustment of mA and/or kV according to patient size and/or use of iterative reconstruction technique. FINDINGS: CT ABDOMEN: The lung bases are clear. The imaged heart is unremarkable. Cholecystectomy is noted. The liver, pancreas, spleen, adrenal glands, kidneys, aorta, IVC and stomach are unremarkable. There are multiple gas and fluid-filled dilated small bowel loops measuring up to 5 cm in diameter in the right lower quadrant at the pelvic inlet on image 85. These extend to the ileocecal junction. CT PELVIS: There is a normal volume of stool and gas in the colon. Surgical changes are seen around the cecum suggesting appendectomy. The uterus, ovaries and decompressed urinary bladder are unremarkable. No inflammatory fat stranding, free fluid, loculated fluid or free air is seen in the abdomen or pelvis. No acute osseous abnormality or suspicious bony lesion is seen. CT/CT abdomen pelvis w con IMPRESSION: 1. High-grade distal small bowel obstruction with a transition point at the ileocolonic junction. No free fluid or free air. No other acute findings in the abdomen or pelvis. Specifically, no bowel inflammation to suggest acute exacerbation of the patient's Crohn's disease. 2. Cholecystectomy. 3. Surgical changes at the base of the cecum suggesting appendectomy. Clinical correlation recommended. Electronically authenticated by: JOSEFINA ORDONEZ Date: 04/16/2024 04:37
[2024-04-16 00:30] LABS: Basophils Percent Auto 0.2 % (0.2-2.0); Eosinophils Percent Auto 0.1 % (0.9-7.0); Hematocrit 40.2 % (36.0-48.0); Hemoglobin 12.8 g/dL (12.0-16.0); Immature Granulocytes Abs Auto 0.06 10^3/uL (0.00-0.03); Immature Granulocytes Pct Auto 0.4 % (0.0-0.5); Lymphocytes Absolute Auto 1.6 10^3/uL (1.2-3.8); Lymphocytes Percent Auto 9.7 % (20.5-60.0); Mean Corpuscular HGB Conc 31.8 g/dL (29.9-35.2); Mean Corpuscular Hemoglobin 26.4 pg (26.7-34.0); Mean Corpuscular Volume 83.1 fL (81.0-99.0); Mean Platelet Volume 10.4 fL (9.5-13.5); Monocytes Absolute Auto 0.5 10^3/uL (0.3-0.8); Monocytes Percent Auto 2.9 % (1.7-12.0); Neutrophils Absolute Auto 14.3 10^3/uL (1.4-6.5); Neutrophils Percent Auto 86.7 % (43.0-75.0); Platelet Count 346 10^3/uL (150-450); Red Blood Count 4.84 10^6/uL (4.20-5.40); Red Cell Distribution Width 14.3 % (11.0-15.0); White Blood Count 16.5 10^3/uL (4.0-11.0)
[2024-04-16] MEDS: HYDROMORPHONE HCL 1 MG/ML CARTRIDGE IVP (00:31)
[2024-04-16] MEDS: ONDANSETRON PF 4 MG/2 ML VIAL IV ×2 (00:31→05:53)
[2024-04-16 00:40] LABS: Alanine Aminotransferase 20 U/L (14-59); Albumin Globulin Ratio 0.6; Albumin Level 3.4 g/dL (3.4-5.0); Alkaline Phosphatase 63 U/L (46-116); Aspartate Amino Transferase 18 U/L (15-37); BUN Creatinine Ratio 8.6; Bilirubin Total 0.5 mg/dL (0.2-1.0); Calcium 9.6 mg/dL (8.5-10.1); Carbon Dioxide 22.8 mmol/L (21.0-32.0); Chloride 103 mmol/L (98-107); Estimated GFR (African America >60 (>=60 mL/min/1.73m^2); Estimated GFR (Non-African Ame 54 (>=60 mL/min/1.73m^2); Globulin 5.3 g/dL; Glucose 147 mg/dL (74-106); Potassium 3.8 mmol/L (3.5-5.1); Sodium 137 mmol/L (136-145); Total Protein 8.7 g/dL (6.4-8.2)
[2024-04-16 00:43] LABS: HCG Qualitative NEGATIVE (NEGATIVE); Internal Control Within Normal Limits
[2024-04-16 01:18] VITALS: BP 123/95; PULSE 84; O2SAT 94
[2024-04-16 02:13] VITALS: BP 145/99; PULSE 81; O2SAT 97
--- NOTE | 2024-04-16 02:20 | ED.ABDPAIN1 ---
HPI - Abdominal Pain General Chief Complaint: Abdominal Pain Stated Complaint: ABD PAIN Time Seen by Provider: 04/15/24 23:45 Source: patient Mode of arrival: walk-in Limitations: no limitations History of Present Illness HPI narrative: pt with Crohn's disease presents with generalized abdominal pain that began one day ago but worsened tonight. No fever or chills. Some nausea but no vomiting. She had some diarrhea but no blood in stool. No urinary symptoms. PSHx includes cholecystectomy. After CT reported and I talked with the radiologist, the patient told me that she had some kind of surgery where they thought I had appendicitis but didn't back before I was diagnosed with Crohn's. Related Data Home Medications ?Medication ?Instructions ?Recorded ?Confirmed adalimumab 40 mg/0.4 mL 40 mg subcut .WEEKLY 10/24/22 04/15/24 subcutaneous pen kit (Humira(CF) Pen) azathioprine 50 mg tablet 50 mg PO .EVERY OTHER DAY 10/24/22 04/15/24 levothyroxine 125 mcg tablet 250 mcg PO DAILY 10/24/22 04/15/24 Previous Rx's ?Medication ?Instructions ?Recorded prednisone 20 mg tablet 40 mg (2 x 20 mg) PO DAILY 3 days 04/16/24 #6 tabs Allergies Allergy/AdvReac Type Severity Reaction Status Date / Time No Known Drug Allergies Allergy Verified 04/15/24 23:31 [facility] Social History Smoking status: Never smoker Little interest or pleasure in doing things: not at all Feeling down, depressed, or hopeless: not at all Exam Narrative Exam Narrative: Nurses notes and vital signs reviewed and patient is not hypoxic. afebrile General: Well-appearing and in no apparent distress. Skin: Warm, dry, no pallor noted. Eye: Pupils are equal, round and EOMI. No scleral icterus. Ears, Nose, Mouth, and Throat: Oral mucosa is moist Cardiovascular: Regular Rate and Rhythm without murmur, gallop or rub. Respiratory: No accessory muscle use or respiratory distress. Lungs are clear to auscultation, no wheezing, rales or rhonchi Musculoskeletal: normal ROM GI: Abdomen is soft, non-distended. Normal bowel sounds. No masses appreciated. Moderate diffuse tenderness to palpation. No rebound, guarding, or rigidity noted. Neurological: A&O x4. No cranial nerve dysfunction observed. No truncal ataxia. Moves all extremities. Sensation intact. Psychiatric: Cooperative and interactive. Normal mood and affect. Constitutional Vital Signs, click to edit/add: Last Vital Signs Temp 97.8 F 04/15/24 23:27 Pulse 81 04/16/24 02:13 Resp 16 04/16/24 02:13 BP 145/99 H 04/16/24 02:13 Pulse Ox 97 04/16/24 02:13 O2 Del Method Room Air 04/16/24 02:13 Course Vital Signs Vital signs: Vital Signs Temperature 97.8 F 04/15/24 23:27 Pulse Rate 92 H 04/15/24 23:27 Respiratory Rate 18 04/15/24 23:27 Blood Pressure 139/100 H 04/15/24 23:27 Pulse Oximetry 99 04/15/24 23:27 Oxygen Delivery Method Room Air 04/15/24 23:27 Temperature 97.8 F 04/15/24 23:27 Pulse Rate 81 04/16/24 02:13 Respiratory Rate 16 04/16/24 02:13 Blood Pressure 145/99 H 04/16/24 02:13 Pulse Oximetry 97 04/16/24 02:13 Oxygen Delivery Method Room Air 04/16/24 02:13 MDM - Abdominal Pain MDM Narrative Medical decision making narrative: Blood drawn and sent for testing. The patient received IV Dilaudid for pain. She also received Zofran for nausea. Urine was ordered to be obtained but she had urinated shortly after arrival and could not give a sample. White blood cell count elevated at 16.5. CMP revealed normal electrolytes and normal function as well as normal liver enzymes. The patient initially felt much better after ED treatment but then her symptoms returned. Suspecting a Crohn's flare, she was given IV Solu-medrol and also got SL Levsin since she described the pain and waves of cramping . It took 3.5hours and multiple calls to radiology to get the patient's CT scan read. 04:42 CT scan of the abdomen pelvis with IV contrast = high grade distal small bowel obstruction with transition point at the ileocolonic junction. No free fluid or free air. No other acute findings or inflammation to suspect Crohn's flare. Prior cholecystectomy and prior appendectomy vs proximal colectomy noted and this appears to be the transition point of the distal SBO. 04:52 I called and talked to the radiologist because pt initially denied prior appendectomy - but after talking with her it appears that she may have had a partial colectomy. 05:[address] report, I talked to the radiologist regarding the reading/findings and then talked with the patient and the mother (with the patient's permission). 05:09 She and I discussed her lab & CT results. Unfortunately, we do not have anesthesia or surgical coverage after 7pm daily or on the weekends at [facility]. She is from [place] and all of her care is through [facility], including her Back Order Clerk, Dr Miramontes. She asked that I call and get her transferred to since we cannot admit her to [facility], so we called the transfer line to initiate transfer to a facilty @ 0500. 05:16 NG tube ordered to be placed after I discussed the need for this with the patient. She was pre treated with benzocaine spray but still became anxious and uncomfortable. She was given IV ZXofran for nausea and IV ativan for anxiety after the NG tube was placed. 05:50 Dr Morrison from called and the case was discussed. Dr Morrison asked that the patient be transferred to [facility] ED. Transfer line put me in touch with an ED attending. 05:55 Dr Hand and I discussed the case and he accepted the patient's transfer to ED at [facility]. 06:00 Call placed to [facility] to try and arrange transportation - they agreed to 8am pickup Patient informed of acceptance to [facility] ED We are now awaiting ambulance for transportation Differential Diagnosis Differential diagnosis: Likely abdominal pain, calculus of kidney, constipation, diverticulitis, small bowel obstruction and other (colitis, crohn's disease) Lab Data Attestation: I reviewed the patient's lab results. Labs: Lab Results 04/15/24 Range/Units 23:45 WBC 16.5 H (4.0-11.0) 10^3/uL RBC 4.84 (4.20-5.40) 10^6/uL Hgb 12.8 (12.0-16.0) g/dL Hct 40.2 (36.0-48.0) % MCV 83.1 (81.0-99.0) fL MCH 26.4 L (26.7-34.0) pg MCHC 31.8 (29.9-35.2) g/dL RDW 14.3 (11.0-15.0) % Plt Count 346 (150-450) 10^3/uL MPV 10.4 (9.5-13.5) fL Neut % (Auto) 86.7 H (43.0-75.0) % Lymph % (Auto) 9.7 L (20.5-60.0) % Wood % (Auto) 2.9 (1.7-12.0) % Eos % (Auto) 0.1 L (0.9-7.0) % Baso % (Auto) 0.2 (0.2-2.0) % Neut # (Auto) 14.3 H (1.4-6.5) 10^3/uL Lymph # (Auto) 1.6 (1.2-3.8) 10^3/uL Wood # (Auto) 0.5 (0.3-0.8) 10^3/uL Eos # (Auto) 0.0 (0.0-0.7) 10^3/uL Baso # (Auto) 0.0 (0.0-0.1) 10^3/uL Abs Immat Gran (auto) 0.06 H (0.00-0.03) 10^3/uL Imm/Tot Granulo (auto) 0.4 (0.0-0.5) % Sodium 137 (136-145) mmol/L Potassium 3.8 (3.5-5.1) mmol/L Chloride 103 (98-107) mmol/L Carbon Dioxide 22.8 (21.0-32.0) mmol/L Anion Gap 15.0 BUN 10.0 (7.0-18.0) mg/dL Creatinine 1.16 H (0.55-1.02) mg/dL Est GFR ( Amer) >60 (>=60 mL/min/1.73m^2) Est GFR (Non-Af Amer) 54 L (>=60 mL/min/1.73m^2) BUN/Creatinine Ratio 8.6 Glucose 147 H (74-106) mg/dL Calcium 9.6 (8.5-10.1) mg/dL Total Bilirubin 0.5 (0.2-1.0) mg/dL AST 18 (15-37) U/L ALT 20 (14-59) U/L Alkaline Phosphatase 63 (46-116) U/L Total Protein 8.7 H (6.4-8.2) g/dL Albumin 3.4 (3.4-5.0) g/dL Globulin 5.3 g/dL Albumin/Globulin Ratio 0.6 Serum HCG, Qual Negative (NEGATIVE) Imaging Data CT scan - abdomen: Attestation: I have reviewed the pertinent imaging results. Radiologist's impression: ITS Impressions Abdomen/Pelvis CT 04/16/24 00:18 IMPRESSION: 1. High-grade distal small bowel obstruction with a transition point at the ileocolonic junction. No free fluid or free air. No other acute findings in the abdomen or pelvis. Specifically, no bowel inflammation to suggest acute exacerbation of the patient's Crohn's disease. 2. Cholecystectomy. 3. Surgical changes at the base of the cecum suggesting appendectomy. Clinical correlation recommended. Electronically authenticated by: JOSEFINA ORDONEZ Date: 04/16/2024 04:37 ADDENDUM: 04/16/24 0504 IMPRESSION: 1. High-grade distal small bowel obstruction with a transition point at the ileocolonic junction. No free fluid or free air. No other acute findings in the abdomen or pelvis. Specifically, no bowel inflammation to suggest acute exacerbation of the patient's Crohn's disease. 2. Cholecystectomy. 3. Surgical changes at the base of the cecum suggesting appendectomy. Clinical correlation recommended. Electronically authenticated by: JOSEFINA ORDONEZ Date: 04/16/2024 05:02 Discharge Plan Discharge Chief Complaint: Abdominal Pain Clinical Impression: Small bowel obstruction, Abdominal pain, Crohn disease Patient Disposition: [facility] Time of Disposition Decision: 05:05 Discharge location: [facility] ED
[2024-04-16] MEDS: METHYLPREDNISOLONE SOD SUCC PF 125 MG/2 ML VIAL IVP (04:07)
[2024-04-16] MEDS: HYOSCYAMINE SULFATE 0.125 MG TAB.SUBL SL (04:08)
[2024-04-16] MEDS: BENZOCAINE 20% SPRAY 57 GM SPRAY CAN TOPICAL (05:15)
--- NOTE | 2024-04-16 05:23 | XR_ITS ---
The [address] [address] Patient Name: LUZ HIGGINBOTHAM MRN: [id number] date: 1990 Sex: F Assigned Patient Location: ER Current Patient Location: ER Accession/Order Number: [id number] Exam Date: 04/16/2024 05:26 Report Date: 04/16/2024 06:43 At the request of: ROBERT FOUNTAIN Procedure: XR chest 1V EXAM: XR chest 1V REASON FOR EXAM: Female, 33 years, NG placement. TECHNIQUE: A single AP view of the chest is performed. COMPARISON: None. FINDINGS: An enteric tube is seen within the stomach. The lungs are underinflated. No focal consolidation is seen. The lung apices are partially obscured by the patient's chin. Normal pleura. Normal size heart. Normal mediastinum and nazia. Normal visualized pulmonary arteries. Normal visualized aortic arch and descending thoracic aorta. Normal visualized thoracic spine. Normal visualized ribs, clavicles, and shoulders. There is no demonstrated abnormality of the visualized soft tissue structures of the upper abdomen. XR/XR chest 1V IMPRESSION: The enteric tube is within the stomach. Low lung volumes, without focal consolidation. Electronically authenticated by: EBONY RHODES Date: 04/16/2024 06:43
--- NOTE | 2024-04-16 05:43 | PC.NURSE ---
Pulled back NG to 50cm at nare due to chest X-ray showing it was curled in the upper stomach. Placement verified by syringe.
[2024-04-16] MEDS: LORAZEPAM 2 MG/ML VIAL 1 MG IV (05:53)
--- NOTE | 2024-04-16 06:41 | PC.NURSE ---
Report to Shell at [facility] called report [phone]
[2024-04-16 06:43] VITALS: BP 144/99; PULSE 98; O2SAT 104
[2024-04-16] MEDS: 0.9 % SODIUM CHLORIDE 1,000 ML 1000 ML IV (06:57)
[2024-04-16 08:21] VITALS: BP 142/100; PULSE 108; O2SAT 98
== END 2024-04-16 08:30 | disposition short-term general hospital (02) ==
PROVIDERS: Emergency Provider Emergency Medicine
DX: K56.609 Unspecified intestinal obstruction, unspecified as to partial versus complete obstruction (principal); K50.90 Crohn's disease, unspecified, without complications; Z90.49 Acquired absence of other specified parts of digestive tract; R10.9 Unspecified abdominal pain
CPT/HCPCS: 36415; 71045; 74177; 80053; 84703; 85025; 96361; 96374; 96375; 96376; 99285; J1171; J2060; J2405; J2919; Q9967

== ENCOUNTER 2025-01-29 17:14 | Emergency (ER) | payer OTHER, SELFPAY ==
--- OUTSIDE RECORDS SUMMARY | 2025-01-29 17:22 | XMS_ITS | CCD ---
Author Organization [facility] Care Team Providers Care Leaf Tier Name Role Phone PADMA OROZCO Attending Unavailable ERNESTO, PADMA Primary Care Unavailable AMY BURNETT Attending Unavailable ERNESTO, PADMA Primary Care Unavailable PADMA OROZCO Attending Unavailable ERNESTO, PADMA Primary Care Unavailable MATTHEW OROZCO A Admitting Unavailable MATTHEW OROZCO Attending Unavailable MATTHEW OROZCO Primary Care Unavailable Russ Salmeron Attending Unavailable [...] Attending Unavailable Ernesto, Matthew Primary Care Unavailable ErnestoLilaie Consulting Unavailable Ernesto, Padma Unavailable Unavailable Yursky, Scarlett Unavailable Unavailable Ernesto, Matthew Unavailable Unavailable Kassi Sheehan Unavailable Unavailab le Ernesto Matthew A Unavailable Unavailable Yursky, Sarah Unavailable Unavailable Arafah, Baha Unavailable Unavailable Rezaee, Jimmy Unavailable Unavailable Irene, Abdullahi Unavailable Unavailable Jass, Lorayne Unavailable Unavailable Yursky, Scarlett Unavailable Unavailable Irene, Abdullahi Unavailable Unavailable Jass, Lorayne Unavailable Unavailable Arafah, Baha Unavailable Unavailable Ernesto, Matthew A Unavailable Unavailable Unavailable Unavailable Unavailable OLIVIA PETE Referring Unavailable DR DANAE WALKER Admitting Unavailabl e JONES Carty, DR FINK Attending Unavailabl e REQUEST, DR [...] KARASIK ., DR FINK Procedure Practitioner Elba SIGRID Ambrose Consulting Unavailable REQUEST, DR NONE LISTED [...] Care Unavail able CHOWDHRY, PREM Attending Unavailable Kurup, Dr. Tom Dewey [...] Dr. Matthew Guillermo Primary Care Unavail able Doolres, Ms. López Attending Unavailable Dolores, MsMachelle López Admitting Unavailable Ernesto, Dr. Matthew Guillermo Primary Care Unavail able Bujorian, Ms. Lita Sunshine Attending Unavailab le Bujorian, Ms. Lita Sunshine Admitting Unavailab le Ernesto, Dr. Matthew [...] Care Unavail able Dolores, Mariia Attending Unavailable Ernesto Matthew STANLEY Primary Care Provider [phone] Dolores PA-C, Mariia Unavailable Dolores PA-C, Mariia Unavailable Unavailable Dolores PA-C, Mariia Unavailable Unavailable Kendra Garcia MD Attending Provider Kendra Garcia Attending Unavailable Kendra Garcia Admitting Unavailable [place] [employer] TECHNICIAN, Binu M Unavailable Ernesto DO, Matthew A Primary Care Provider Dolores PA-C, Mariia Unavailable Unavailable Dolores PA-C, Mariia Unavailable Unavailable [place] [employer] PREP TECHNICIAN, Binu M Unavailable Dolores PA-C, Mariia Unavailable Unavailable [place] [employer] PREP TECHNICIAN, Kiko L Unavailable Dolores PA-C, Mariia Unavailable Unavailable Dolores PA-C, Mariia Unavailable Unavailable Russ Luther DO Attending Unavailable ERNESTO, MATTHEW A Attending Unavailable ERNESTO, MATTHEW A Primary Care Unavailable LEONCIO SPARROW Attending Unavailable ERNESTO, MATTHEW A Primary Care Unavailable BINU BALDWIN M Attending Unavailable ERNESTO, MATTHEW A Primary Care Unavailable TOM VASQUEZ K Attending Unavailable ERNESTO, MATTHEW A Primary Care Unavailable KRYSTINAUPJACOBEE K Referring Unavailable ERNESTO V, PADMA Attending Unavailable ERNESTO, MATTHEW A Primary Care Unavailable ERNESTO V, PADMA Attending Unavailable ERNESTO, MATTHEW A Primary Care Unavailable KRYSTINAUPJACBOEE K Attending Unavailable ERNESTO, MATTHEW A Primary Care Unavailable KURUP TOM K Referring Unavailable ERNESTO, MATTHEW A Attending Unavailable ERNESTO, MATTHEW A Primary Care Unavailable ERNESTO, MATTHEW A Primary Care Unavailable ERNESTO, MATTHEW A Primary Care Unavailable ERNESTO, MATTHEW A Primary Care Unavailable ERNESTO, MATTHEW A Primary Care Unavailable LEAVEKIKO RAMIREZ Attending Unavailable ERNESTO, MATTHEW A Primary Care Unavailable ERNESTO, MATTHEW A Primary Care Unavailable ROBERT FOUNTAIN Referring Unavailable ERNESTO, MATTHEW A Primary Care Unavailable VITO CHRISTIANSON Admitting Unava ilable VITO CHRISTIANSON Attending Unava ilable ERNESTO, MATTHEW A Primary Care Unavailable ERNESTO, MATTHEW A Primary Care Unavailable LEAVERTONKIKO Attending Unavailable LEAVERTONKIKO Referring Unavailable ERNESTO, MATTHEW A Primary Care Unavailable LEAVERTONKIKO L Referring Unavailable ERNESTO, MATTHEW A Primary Care Unavailable ERNESTO V, PADMA Attending Unavailable ERNESTO V, PADMA Referring Unavailable ERNESTO, MATTHEW A Primary Care Unavailable LEAVERTON, KIKO L Attending Unavailable KIKO ABURTO Referring Unavailable MATTHEW OROZCO Primary Care Unavailable KIKO ABURTO Referring Unavailable ERNESTOMATTHEW Primary Care Unavailable KIKO ABURTO Referring Unavailable MATTHEW OROZCO Primary Care Unavailable MILVIA ROB Referring Unavailable MATTHEW OROZCO Primary Care Unavailable Medications Current Medications Medication Drug Class(es) Dates Sig (Normalized) Sig (Original) 0.4 ml adalimumab 100 mg/ml auto-injector (20 sources) Tumor Necrosis Factor Cherelle Start: 09-06-2019 Humira 40 MG/0.4ML Subcutaneous Prefilled Syringe Kit on hold Refills: 0 DO Start : 06-Sep-2019 Active Start: 05-03-2019 End: 05-09-2025 adalimumab (Humira,CF, Pen) 40 mg/0.4 mL pen injector kit pen-injector Indications: Crohn's disease of small and large intestines with complication (Multi) INJECT 40MG (1 PEN) UNDER THE SKIN ONCE WEEKLY DIRECTED. 12 each 3 11/23/2024 3:21 PM EDT 05/09/2024 05/09/2025 Active Start: 05-03-2019 Humira Pen 40 MG/0.4ML [...] oral tablet (20 sources) Purine Antimetabolite Start: 04-18-2024 take 75 mg by mouth every other day 75 mg, oral, Every other day, First dose on Thu04/18/24 at 0900, Administer and clamp NG for 60 minutes after Start: 03-02-2024 End: 03-02-2025 take 1 tablet [...] Start: 12-07-2012 take 1 tablet by jojo th once daily Azathioprine 50 mg Tablet Active [...] 45 tablet 11 03/02/2024 03/02/2024 Discontinued (Reorder) benzocaine 15 mg / menthol 3.6 mg oral lozenge (1 source) Standardized Chemical Allergen Start: 04-17-2024 1 lozenge, Mouth/Throat, Every 2 hour PRN, sore throat, Starting on 04/17/24 at 0830 bisacodyl 10 mg rectal suppository (1 source) Stimulant Laxative Start: 04-17-2024 take 10 mg rectal route once daily 10 mg, rectal, Daily, First dose on 04/17/24 at 0900 blood pressure monitor kit (12 sources) Start: 08-25-2023 blood pressure monitor kit Indications: Wellness examination 1 Units once daily. 1 kit 08/25/2023 Active 0.4 ml enoxaparin sodium 100 mg/ml prefilled syringe (20 sources) Low Molecular Weight Heparin Start: 04-16-2024 inject 40 mg by subcutaneous injection every twenty-four hours 40 mg, subcutaneous, Every 24 hours, First dose on 04/16/24 at 1730, Indications: deep vein thrombosis prevention Start: 03-27-2020 Enoxaparin Sod ium 40 MG/0.4ML Injection Solution Prefilled Syringe Quantity: 4 Refills: 0 Ordered: 30-Oct-2021 DO Start : 10-Sep-2021 Complete Start: 03-27-2020 Enoxaparin Sod ium 40 MG/0.4ML SOLN Quantity: 12 Refills: 0 Ordered: 12-May-2020 DO Start : 27-Mar-2020 Active fluticasone propionate 0.05 mg/actuat metered dose nasal spray (20 sources) Corticosteroid Start: 04-12-2019 fluticasone (Flonase) 50 mcg/actuation nasal spray Administer into affected nostril(s) if needed. 04/12/2019 Active 1 ml HYDROmorphone hydrochloride 0.2 mg/ml prefilled syringe (1 source) Opioid Agonist Start: 04-16-2024 take 0.2 mg intravenously every four hours as needed 0.2 mg, intravenous, Every 4 hours PRN, pain moderate (4-6), second line, Starting on 04/16/24 at 1700 ibuprofen 800 mg oral tablet (2 sources) Nonsteroidal Anti-inflammatory Drug ibuprofen 800 mg tablet Take by mouth. 0 Active levothyroxine sodium 0.15 mg oral tablet (20 sources) l-Thyroxine Start: 03-07-2024 End: 03-07-2025 take 1 tablet by mouth once daily in the morning Synthroid 150 mcg tablet Indications: Hypothyroidism, postsurgical Take 1 tablet (150 mcg) by mouth early in the morning.. Take on an empty stomach at the same time each day, either 30 to 60 minutes prior to breakfast 30 tablet 11 03/07/2024 03/07/2025 Active Start: 12-30-2023 End: 12-29-2024 take 1 tablet by mouth in the morning levothyroxine (Synthroid, Levoxyl) 137 mcg tablet Indications: Hypothyroidism, postsurgical Take 1 tablet (137 mcg) by mouth early in the morning.. 30 tablet 11 12/30/2023 12/29/2024 Active Start: 12-14-2023 End: 12-30-2023 take 1 tablet by mouth once daily levothyroxine (Synthroid, Levoxyl) 125 mcg tablet Indications: Hypothyroidism, postsurgical Take 1 tablet (125 mcg) by mouth once daily. as directed 90 tablet 1 12/14/2023 12/30/2023 Discontinued (Therapy completed) Start: 08-25-2023 take 1 tablet by jojo [...] AND 175 X2 ON S-S 0 Active lidocaine 0.04 mg/mg medicated patch (2 sources) Antiarrhythmic, Amide Local Anesthetic Start: 04-17-2024 apply 1 dose transdermal route once daily 1 patch, transdermal, Administer over 12 Hours, Daily, First dose on 04/17/24 at 1230, Apply to abdomen. Patch will remain on for 12 hours, then removed for [address] patch directly over any surgical incisions or wounds. Start: 04-16-2024 End: 04-16-2024 1 Application, Topical, Once , On 04/16/24 at 1115, For 1 dose, Apply to nasal tom' . magnesium sulfate 0.0277 meq/ml / potassium sulfate 0.0374 meq/ml / sodium sulfate 0.257 meq/ml oral solution (1 source) Start: 08-30-2024 End: 08-31-2024 sodium,potassium,mag sulfates (Suprep Bowel Prep Kit) 17.5-3.13-1.6 gram solution Indications: Crohn's disease of small and large intestines with complication (Multi) Take 1 bottle by mouth 2 times a day for 1 day. Follow instructions given 1 each 08/30/2024 08/31/2024 Active 10 ml methocarbamol 100 mg/ml injection (1 source) Muscle Relaxant Start: 04-16-2024 take 1000 mg intravenously every eight hours 1,000 mg, intravenous, Administer over 5 Minutes, Every 8 hours, First dose on 04/16/24 at 1915 2 ml ondansetron 2 mg/ml injection (2 sources) Serotonin-3 Receptor Antagonist Start: 04-16-2024 take 4 mg intravenously every six hours as needed 4 mg, intravenous, Every 6 hours PRN, nausea/vomiting, first line, Starting on 04/16/24 at 1658, When administering via IV Push, administer over 3-5 minutes. Start: 04-16-2024 End: 04-16-2024 4 mg, intravenous, Once, On 04/16/24 at 1040, For 1 dose, When administering via IV Push, administer over 3-5 minutes. pantoprazole 40 mg injection (1 source) Proton Pump Inhibitor Start: 04-17-2024 take 40 mg by mouth once daily before breakfast 40 mg, intravenous, Daily before breakfast, First dose on 04/17/24 at 0700, Use pantoprazole injection if patient unable to take meds orally or per feeding tube. phenol 14 mg/ml mucosal spray (1 source) Start: 04-16-2024 take 1 spray(s) by mouth every two hours as needed 1 spray, Mouth/Throat, Every 2 hour PRN, sore throat, Starting on 04/16/24 at 1717, Instruct patient to spit out after 15 seconds. PNV no.95/ferrous fum/folic ac ( ORAL) (2 sources) PNV no.95/ferrou s fum/folic ac ( ORAL) Take by mouth. 0 Active prednisoLONE acetate 10 mg/ml ophthalmic suspension [...] dropTID x 2 weeks1 drop BID x 1dguqn2 drop QD x 2 weeks stop Quantity: 1 Refills: 0 Ordered: 01-Aug-2022 Tom Vasquez MD Start : 01-Aug-2022 Active Completed/Discontinued Medications Medication Drug Class(es) Dates Sig (Normalized) Sig (Original) 100 ml acetaminophen 10 mg/ml injection (1 source) Start: 04-16-2024 End: 04-19-2024 1,000 mg, intravenous, at 400 mL/hr, Administer over 15 Minutes, Every 6 hours scheduled, First dose on 04/16/24 at 1800, For 12 doses benzoyl peroxide 100 mg/ml medicated liquid soap (20 sources) Start: 02-28-2020 Benzoyl Peroxide Wash 10 % External Liquid APPLY DAILY DIRECTED TO AFFECTED AREAS A BODY WASH Quantity: 237 Refills: 0 Ordered: 29-Mar-2020 DO Start : 28-Feb-2020 Active calcium chloride 0.0014 meq/ml / potassium chloride 0.004 meq/ml / sodium chloride 0.103 meq/ml / sodium lactate 0.028 meq/ml injectable solution (3 sources) Start: 04-16-2024 End: 04-18-2024 take 100 mL intravenously every hour 100 mL/hr, intravenous, Continuous, Starting on 04/17/24 at 1730, For 1 day Start: 04-16-2024 End: 04-16-2024 1,000 mL, intravenous, at 50 0 mL/hr, Administer over 2 Hours, Once, On 04/16/24 at 1425, For 1 dose cholecalciferol 0.05 mg oral capsule (20 sources) Vitamin D Start: 10-09-2021 End: 04-16-2024 take 1 capsule by mouth once daily cholecalciferol (Vitamin D-3) 50 mcg (2,000 unit) capsule Take 1 capsule (50 mcg) by mouth once daily. 10/09/2021 04/16/2024 Discontinued (Entered in Error) Start: 10-09-2021 take 1 capsule by [facility] once daily cholecalciferol (Vitamin D-3) 50 mcg (2,000 unit) capsule Take 1 capsule (2,000 Units) by mouth once daily. 0 10/09/2021 Active Start: 05-10-2018 take 1 capsule by [facility] once daily Cholecalciferol (Vitamin D3) (Vitamin D3) 1,000 unit Capsule Active 1000 UNIT PO Daily May 10, 2018 12:00am cholecalciferol (Vitamin D-3) 5,000 Units tablet Take 1 tablet (5,000 Units) by mouth every 7 days. 0 Active clindamycin 10 mg/ml topical lotion (20 sources) Lincosamide Antibacterial Start: 02-28-2020 Clindamycin Phosphate 1 % External Lotion APPLY DAILY TO AFFECTED AREAS ON BODY Quantity: 60 Refills: 0 Ordered: 29-Mar-2020 DO Start : 28-Feb-2020 Active diatrizoate karen-diatrizoat sod (Gastrografin 37% organic bound iodine) solution 250 mL (1 source) Start: 04-18-2024 End: 04-18-2024 take 250 mL by mouth once 250 mL, oral, Once, On Thu04/18/24 at 1515, For 1 dose, What is the indication of use? Diagnostic Use ergocalciferol 1.25 mg oral capsule (20 sources) Provitamin D2 Compound Start: 06-29-2018 End: 04-16-2024 ergocalciferol (Vitamin D-2) 1.25 MG (44366 UT) capsule Take by mouth. 06/29/2018 04/16/2024 Discontinued (Entered in Error) 500 ml glucose 50 mg/ml / potassium chloride 0.02 meq/ml / sodium chloride 4.5 mg/ml injection (1 source) Start: 04-18-2024 End: 04-19-2024 take 50 mL intravenously every hour 50 mL/hr, intravenous, Continuous, Starting on Thu04/18/24 at 1900, For 1 day labetalol hydrochloride 200 mg oral tablet (3 sources) beta-Adrenergic Cherelle Start: 10-03-2021 Labetalol HCl - 200 MG Oral Tablet Quantity: [...] Start : 27-Aug-2018 Active 5 ML Bottle oxymetazoline hydrochloride 0.5 mg/ml nasal spray (1 source) Start: 04-16-2024 End: 04-19-2024 take 2 spray(s) nasal route every twelve hours as needed for congestion 2 spray, Each Nostril, Every 12 hours PRN, congestion, Starting on 04/16/24 at 1110, For 3 days polyethylene glycol 3350 319385 mg / potassium chloride 1480 mg / sodium bicarbonate 5720 mg / sodium chloride 92598 mg powder for oral solution (14 sources) Osmotic Laxative Start: 04-29-2022 End: 04-16-2024 polyethylene glycol-electrolyt es 420 gram solution Take by mouth if needed. take as directed 04/29/2022 04/16/2024 Discontinued (Entered in Error) Start: 04-29-2022 polyethylene g lycol-electrolytes 420 gram solution take as directed 04/29/2022 Active Start: 11-26-2021 PEG 3350-KCl-N a Bicarb-NaCl 420 GM Oral Solution Reconstituted TAKE DIRECTED. Quantity: 1 Refills: 0 Ordered: 26-Nov-2021 Scarlett Mittal Start : 26-Nov-2021 Active polysaccharide iron complex 150 mg oral capsule (5 sources) Start: 01-18-2020 take 1 capsule by mouth once daily Ferrex 150 150 MG Oral Capsule take 1 capsule by mouth once daily Quantity: 30 Refills: 0 Ordered: 20-Jan-2020 DO Start : 18-Jan-2020 Active polysaccharide i emilie complex 150 mg iron tablet Take by mouth. 0 Active 100 ml potassium chloride 0. 2 meq/ml injection (2 sources) Start: 04-18-2024 End: 04-18-2024 20 mEq, intravenous, at 50 m L/hr, Administer over 2 Hours, Once, On Thu04/18/24 at 1000, For 1 dose, Via peripheral line Start: 04-17-2024 End: 04-17-2024 take 20 mEq intravenously every two hours 20 mEq, intravenous, at 50 mL/hr, Administer over 2 Hours, Every 2 hours, First dose on Thu04/17/24 at 1230, For 2 doses, Total dose is 40 mEq via peripheral line. predniSONE 50 mg oral tablet (2 sources) [...] subcutaneously every 8 weeks Quantity: 1 Refills: 3 Veronica MCLEANLORIScarlett Start : 06-Apr-2019 Active Milliliter Problems Active Problems Problem Classification Problem Date Documented Da te Episodic/Chronic Complications of surgical procedures or medical care (20 sources) Postoperative hypothyroidism; Translations: [Postsurgical hypothyroidism] Onset: 08-21-2022 08-21-2022 Chronic Conditions associated with dizziness or vertigo (3 sources) Lightheadedness; Translations: [Lightheadedness] Episodic Deficiency and other anemia (19 sources) Iron deficiency anemia due to blood loss; Translations: [Iron deficiency anemia secondary to blood loss (chronic)] Onset: 03-13-2023 03-13-2023 Chronic Deficiency and other anemia (4 sources) Iron deficiency anemia secondary to blood loss (chronic); Translations: [Iron deficiency anemia secondary to blood loss (chronic)] Onset: 03-13-2023 Chronic Deficiency and other anemia (6 sources) Iron deficiency anemia; Translations: [Iron deficiency [...] high risk HPV] Episodic Other gastrointestinal disorders (20 sources) Malabsorption - iron; Translations: [Intestinal malabsorption, unspecified] Onset: 03-13-2023 03-13-2023 Chronic Other gastrointestinal disorders (6 sources) Intestinal malabsorption, unspecified; Translations: [Intestinal malabsorption, unspecified] Onset: 03-13-2023 Chronic Other gastrointestinal disorders (20 [...] obesity; Translations: [Body Mass Index 32.0-32.9, adult] 11-17-2024 Chronic Other nutritional; endocrine; and metabolic disorders (1 source) Morbid obesity; Translations: [Morbid (severe) obesity due to excess calories] 11-17-2024 Chronic Other screening for suspected conditions (not mental disorders or infectious disease) (7 sources) Encounter for screening for Streptococcus B; Translations: [Cancer cervix screening status] Onset: 09-04-2021 Episodic Other skin disorders (1 source) Other [...] Comment on above: Added by Problem Lis t Migration; 2013-01-07; Moved to Suppressed Apr 09 [...] iridocyclitis] Onset: 08-21-2022 Resolved: 02-25-2019 08-21-2022 Episodic Intestinal obstruction without hernia (11 sources) Small bowel obstruction; Translations: [Unspecified intestinal obstruction, unspecified as to partial versus complete obstruction] Onset: 04-16-2024 04-16-2024 Episodic Other aftercare (20 sources) Long-term current use of steroid; Translations: [Long-term (current) use of steroids] Onset: 11-08-2014 Episodic Other aftercare (20 sources) Drug therapy finding; Translations: [Long-term (current) use of steroids] Onset: 07-09-2017 Resolved: 08-27-2018 Episodic Other circulatory disease (12 sources) Elevated blood pressure; Translations: [Elevated blood-pressure [...] Episodic Other ear and sense organ disorders (16 sources) Impacted cerumen of bilateral ears; Translations: [...] 10-14-2016 Episodic Other non-epithelial cancer of skin (16 sources) Squamous cell carcinoma of skin; Translations: [...] [Single live ] Onset: 10-09-2021 Episodic Other skin disorders (20 sources) Folliculitis; Translations: [Other specified diseases of hair and hair follicles] Onset: 08-21-2022 08-21-2022 Episodic Other skin disorders (12 sources) Swelling of structure of eye; Translations: [Other specified disorders of eye and adnexa] Onset: 11-08-2014 09-02-2024 Episodic Other upper respiratory disease (20 sources) Bleeding from nose; Translations: [Epistaxis] Onset: 04-13-2017 Episodic Other upper respiratory disease (20 sources) Hypertrophy of nasal turbinates; Translations: [Hypertrophy of nasal turbinates] Resolved: 02-25-2019 Episodic Other upper respiratory disease (17 sources) Deviated nasal septum; Translations: [Deviated nasal [...] Translations: [Effective bowel preparation for surgery] Unclassified (16 sources) Onset: 08-22-2022 Resolved: 11-17-2024 08-22-2022 Viral infection (20 sources) Cytomegaloviral colitis; 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 ([facility]) [address] [place] [address] [place] [address] CBC W Auto Differential pane l (Bld)on 12-06-2024 Basophils (Bld) [#/Vol] 0.05 x10*3/uL Normal 0.00-0.10 [facility] Comment on above: Performed By: #### 2 4323-8 #### AR CHATMAN ([id number]) [facility] ([facility]) [address] [place] [address] [place] [id number] Basophils/100 WBC (Bld) 0.4 % Normal 0.0-2.0 [facility] Comment on above: Performed By: #### 2 4323-8 #### AR CHATMAN ([id number]) [facility] ([facility]) [address] [place] [address] [place] [address] Eosinophils (Bld) [#/Vol] 0.07 x10*3/uL Normal 0.00-0.70 [facility] Comment on above: Performed By: #### 2 4323-8 #### AR CHATMAN ([id number]) [facility] ([facility]) [address] [place] [address] [place] [address] Eosinophils/100 WBC (Bld) 0.6 % Normal 0.0-6.0 [facility] Comment on above: Performed By: #### 2 432-8 #### AR CHATMAN ([id number]) [facility] ([facility]) [address] [place] [address] [place] [address] Erythrocyte distribution width (RBC) [Ratio] 15.3 % High 11.5-14.5 [facility] Comment on above: Performed By: #### 2 432-8 #### AR CHATMAN ([id number]) [facility] ([facility]) [address] [place] [address] [place] [address] Hematocrit (Bld) [Volume fraction] 34.8 % Low 36.0-46.0 [facility] Comment on above: Performed By: #### 2 4323-8 #### AR CHATMAN ([id number]) [facility] ([facility]) [address] [place] [address] [place] [id number] Hemoglobin (Bld) [Mass/Vol] 10.9 g/dL Low 12.0-16.0 [facility] Comment on above: Performed By: #### 2 4323-8 #### AR CHATMAN ([id number]) [facility] ([facility]) [address] [place] [address] [place] [id number] Immature granulocytes (Bld) [#/Vol] 0.02 x10*3/uL Normal 0.00-0.70 [facility] Comment on above: Performed By: #### 2 4323-8 #### AR CHATMAN ([id number]) [facility] ([facility]) [address] [place] [address] [place] [id number] Immature granulocytes/100 WBC (Bld) 0.2 % Normal 0.0-0.9 [facility] Comment on above: Result Comment: Zulay ture Granulocyte Count (IG) includes promyelocytes, myelocytes and metamyelocytes but does not include bands. Percent differential counts (%) should be interpreted in the context of the absolute cell counts (cells/UL). Performed By: #### 2 4323-8 #### AR CHATMAN ([id number]) [facility] ([facility]) [address] [place] [address] [place] [id number] Lymphocytes (Bld) [#/Vol] 2.82 x10*3/uL Normal 1.20-4.80 [facility] Comment on above: Performed By: #### 2 4323-8 #### AR CHATMAN ([id number]) [facility] ([facility]) [address] [place] [address] [place] [id number] Lymphocytes/100 WBC (Bld) 25.4 % Normal 13.0-44.0 [facility] Comment on above: Performed By: #### 2 4323-8 #### AR CHATMAN ([id number]) [facility] ([facility]) [address] [place] [address] [place] [id number] MCH (RBC) [Entitic mass] 26.3 pg Normal 26.0-34.0 [facility] Comment on above: Performed By: #### 2 4323-8 #### AR CHATMAN ([id number]) [facility] SYSTEMS) [address] [place] [address] [place] [address] MCHC (RBC) [Mass/Vol] 31.3 g/dL Low 32.0-36.0 [facility] Comment on above: Performed By: #### 2 4323-8 #### AR CHATMAN ([id number]) [facility] ([facility]) [address] [place] [address] [place] [address] MCV (RBC) [Entitic vol] 84 fL Normal 80-100 [facility] Comment on above: Performed By: #### 2 4323-8 #### AR CHATMAN ([id number]) [facility] ([facility]) [address] [place] [address] [place] 22207 Monocytes (Bld) [#/Vol] 0.58 x10*3/uL Normal 0.10-1.00 [facility] Comment on above: Performed By: #### 2 4323-8 #### AR CHATMAN ([id number]) [facility] ([facility]) [address] [place] [address] [place] 30890 Monocytes/100 WBC (Bld) 5.2 % Normal 2.0-10.0 [facility] Comment on above: Performed By: #### 2 4323-8 #### AR CHATMAN ([id number]) [facility] ([facility]) [address] [place] [address] [place] [address]66[address] Neutrophils (Bld) [#/Vol] 7.58 x10*3/uL Normal 1.20-7.70 [facility] Comment on above: Result Comment: Perc ent differential counts (%) should be interpreted in the context of the absolute cell counts (cells/uL). Performed By: #### 2 4323-8 #### AR CHATMAN ([id number]) [facility] ([facility]) [address] [place] [address] [place] 73694 Neutrophils/100 WBC (Bld) 68.2 % Normal 40.0-80.0 [facility] Comment on above: Performed By: #### 2 4323-8 #### AR CHATMAN ([id number]) [facility] ([facility]) [address] [place] [address] [place] 97155 Nucleated RBC/100 WBC (Bld) [Ratio] Normal [facility] Comment on above: Result Comment: Not Measured Performed By: #### 2 4323-8 #### AR CHATMAN ([id number]) [facility] ([facility]) [address] [place] [address] [place] 25127 Platelets (Bld) [#/Vol] 265 x10*3/uL Normal 150-450 [facility] Comment on above: Performed By: #### 2 4323-8 #### AR CHATMAN ([id number]) [facility] ([facility]) [address] [place] [address] [place] 25268 RBC (Bld) [#/Vol] 4.15 x10*6/uL Normal 4.00-5.20 [facility] Comment on above: Performed By: #### 2 432-8 #### AR CHATMAN ([id number]) [facility] ([facility]) [address] [place] [address] [place] [address]0625 WBC (Bld) [#/Vol] 11.1 x10*3/uL Normal 4.4-11.3 [facility] Comment on above: Performed By: #### 2 4323-8 #### AR CHATMAN ([id number]) [facility] ([facility]) [address] [place] [address] [place] 94[address] Cobalaminson 12-06-2024 Cobalamin (Vitamin B12) [Mass/Vol] 392 pg/mL Normal 211-911 [facility] Comment on above: Performed By: #### 2 4323-8 #### AR CHATMAN ([id number]) [facility] ([facility]) [address] [place] [address] [place] 00706 Comprehensive metabolic 2000 panelon 12-06-2024 Albumin BCP dye [Mass/Vol] 3.8 g/dL Normal 3.4-5.0 [facility] Comment on above: Performed By: #### 2 4323-8 #### AR CHATMAN ([id number]) [facility] ([facility]) [address] [place] [address] [place] 37224 ALP [Catalytic activity/Vol] 41 U/L Normal 33-110 [facility] Comment on above: Performed By: #### 2 432-8 #### AR CHATMAN ([id number]) [facility] ([facility]) [address] [place] [address] [place] [address] ALT With P-5'-P [Catalytic activity/Vol] 10 U/L Normal 7-45 [facility] Comment on above: Result Comment: Sridevi ents treated with Sulfasalazine may generate falsely decreased results for ALT. Performed By: #### 2 4323-8 #### AR CHATMAN ([id number]) [facility] ([facility]) [address] [place] [address] [place] [address] Anion gap [Moles/Vol] 11 mmol/L Normal 10-20 [facility] Comment on above: Performed By: #### 2 432-8 #### AR CHATMAN ([id number]) [facility] ([facility]) [address] [place] [address] [place] [address] AST With P-5'-P [Catalytic activity/Vol] 13 U/L Normal 9-39 [facility] Comment on above: Performed By: #### 2 4323-8 #### AR CHATMAN ([id number]) [facility] ([facility]) [address] [place] [address] [place] [address]64 Bilirubin [Mass/Vol] 0.3 mg/dL Normal 0.0-1.2 [facility] Comment on above: Performed By: #### 2 4323-8 #### AR CHATMAN ([id number]) [facility] ([facility]) [address] [place] [address] [place] 07171 Calcium [Mass/Vol] 8.8 mg/dL Normal 8.6-10.3 [facility] Comment on above: Performed By: #### 2 4323-8 #### AR CHATMAN ([id number]) [facility] ([facility]) [address] [place] [address] [place] 83993 Chloride [Moles/Vol] 104 mmol/L Normal 98-107 [facility] Comment on above: Performed By: #### 2 4323-8 #### AR CHATMAN ([id number]) [facility] ([facility]) [address] [place] [address] [place] [address] CO2 [Moles/Vol] 26 mmol/L Normal 21-32 [facility] Comment on above: Performed By: #### 2 4323-8 #### AR CHATMAN ([id number]) [facility] ([facility]) [address] [place] [address] [place] [address]3 Creatinine [Mass/Vol] 0.87 mg/dL Normal 0.50-1.05 [facility] Comment on above: Performed By: #### 2 4323-8 #### AR CHATMAN ([id number]) [facility] ([facility]) [address] [place] [address] [place] [address] Glomerular filtration rate/1.73 sq M.predicted 90 mL/min/1.73m*2 Normal >60 [facility] Comment on above: Result Comment: Calc ulations of estimated GFR are performed using the 2020 CKD-EPI Study Refit equation without the race variable for the IDMS-Traceable creatinine methods. https://jasn.asnjournals.org/content/early//ASN.82174094 88 Performed By: #### 2 4323-8 #### AR CHATMAN ([id number]) [facility] ([facility]) [address] [place] [address] [place] 65771 Glucose [Mass/Vol] 124 mg/dL High 74-99 [facility] Comment on above: Performed By: #### 2 4323-8 #### AR CHATMAN ([id number]) [facility] ([facility]) [address] [place] [address] [place] 34781 Potassium [Moles/Vol] 3.5 mmol/L Normal 3.5-5.3 [facility] Comment on above: Performed By: #### 2 4323-8 #### RA CHATMAN ([id number]) [facility] ([facility]) [address] [place] [address] [place] [address] Protein [Mass/Vol] 7.5 g/dL Normal 6.4-8.2 [facility] Comment on above: Performed By: #### 2 4323-8 #### AR CHATMAN ([id number]) [facility] ([facility]) [address] [place] [address] [place] [address] Sodium [Moles/Vol] 137 mmol/L Normal 136-145 [facility] Comment on above: Performed By: #### 2 4323-8 #### AR CHATMAN ([id number]) [facility] ([facility]) [address] [place] [address] [place] [address] Urea nitrogen [Mass/Vol] 10 mg/dL Normal 6-23 [facility] Comment on above: Performed By: #### 2 4323-8 #### AR CHATMAN ([id number]) [facility] ([facility]) [address] [place] [address] [place] [address] ESR Westergren method (Bld) [Velocity]on 12-06-2024 ESR (Bld) [Velocity] 56 mm/h High 0-20 [facility] Comment on above: Performed By: #### 2 4323-8 #### AR CHATMAN ([id number]) [facility] ([facility]) [address] [place] [address] [place] [address] Ferritinon 12-06-2024 Ferritin [Mass/Vol] 50 ng/mL Normal 8-150 [facility] Comment on above: Performed By: #### 2 4323-8 #### AR CHATMAN ([id number]) [facility] ([facility]) [address] [place] [address] [place] [address] Folateon 12-06-2024 Folate [Mass/Vol] 8.0 ng/mL Normal >5.0 [facility] Comment on above: Order Comment: Low < 3.4Borderline 3.4-5.0Normal >5.0Patients receiving more than 5 mg/day of biotin may have interference in test results. A sample should be taken no sooner than eight hours after previous dose. Contact the testing laboratory for additional information. Performed By: #### 2 276-4 #### AR CHATMAN ([id number]) [facility] [place] [address] [place] [address] Iron and Iron binding capaci ty panelon 12-06-2024 Iron [Mass/Vol] 52 ug/dL Normal 35-150 [facility] Comment on above: Performed By: #### 2 4323-8 #### AR CHATMAN ([id number]) [facility] ([facility]) [address] [place] [address] [place] [address] Iron binding capacity [Mass/Vol] 315 ug/dL Normal 240-445 [facility] Comment on above: Performed By: #### 2 4323-8 #### AR CHATMAN ([id number]) [facility] ([facility]) [address] [place] [address] [place] [address] Iron binding capacity.unsaturate d [Mass/Vol] 263 ug/dL Normal 110-370 [facility] Comment on above: Performed By: #### 2 4323-8 #### AR CHATMAN ([id number]) [facility] ([facility]) [address] [place] [address] [place] [address] Iron saturation [Mass fraction] 17 % Low 25-45 [facility] Comment on above: Performed By: #### 2 4323-8 #### AR CHATMAN ([id number]) [facility] ([facility]) [address] [place] [address] [place] [address] LIPID PANEL, STANDARDon 07 Cholesterol [Mass/Vol] 186 mg/dL Normal <200 [facility] Comment on above: Performed By: #### 7 178, 87622 #### [facility] [address], [address] [place] [address] Gluing Crew Leader: Jake Alexander MD Cholesterol in HDL [Mass/Vol] 66 mg/dL Normal > OR = 50 [facility] Comment on above: Performed By: #### 7 623, 41073 #### [facility] [address], [address] [place] [address] Gluing Crew Leader: Jake Alexander MD Cholesterol in LDL [Mass/Vol] 104 mg/dL High [facility] Comment on above: Result Comment: Refe rence range: <100 Desirable range <100 mg/dL for primary prevention; <70 mg/dL for patients with CHD or diabetic patients with > or = 2 CHD risk factors. LDL-C is now calculated using the Meliton calculation, which is a validated novel method providing better accuracy than the Friedewald equation in the estimation of LDL-C. Rashel LUNA et al. JASVIR. 2013;310(19): 2408-7405 (http://education.redIT.Dunwello/faq/WLZ006) Performed By: #### 7 029, 62495 #### [facility] [address], [address] [place] [address] Gluing Crew Leader: Jake Alexander MD Cholesterol.total/C holesterol in HDL [Mass ratio] 2.8 {ratio} Normal <5.0 [facility] Comment on above: Performed By: #### 7 532, 13118 #### [facility] [place] [address] Gluing Crew Leader: Jake Alexander MD NON HDL CHOLESTEROL 120 mg/dL (calc) Normal <130 [facility] Comment on above: Result Comment: For patients with diabetes plus 1 major ASCVD risk factor, treating to a non-HDL-C goal of <100 mg/dL (LDL-C of <70 mg/dL) is considered a therapeutic option. Performed By: #### 7 342, 70448 #### [facility] [address], [address] [place], [place] [id number] Gluing Crew Leader: Jake Alexander MD Triglyceride [Mass/Vol] 73 mg/dL Normal <150 [facility] Comment on above: Performed By: #### 7 600, 96853 #### [facility] [address] [facility], [address] [place] [address] Gluing Crew Leader: Jake Alexander MD TSH W/REFLEX TO FT4on 2024 TSH W/REFLEX TO FT4 0.51 mIU/L Normal [facility] Comment on above: Result Comment: Refe rence Range > or = 20 Years 0.40-4.50 Ranges First trimester 0.26-2.66 Second trimester 0.55-2.73 Third trimester 0.43-2.91 Performed By: #### 7 600, 71515 #### [facility] [address] [place] [address], [address] [place] [address] Gluing Crew Leader: Jake Alexander MD Cervicalon 11-17-2024 Cytology Cervical or vaginal smear or scraping study Pathology report.total SEE COMMENT Gynecologic Cytology Case: [id number] Authorizing Provider: Matthew Orozco DO Collected: 11/17/202429 Ordering Location: Family Medicine Received: 11/17/2024 08 Specialists First Screen: BRENDA Umanzor Rescreen: BRENDA Ware Specimen: ThinPrep Liquid-Based Pap-Imaging System Screen, CERVIX, SCREENING Cytology study comment SEE COMMENT A. THINPREP PAP CERVIX, SCREENING - Specimen Adequacy Satisfactory for evaluation; endocervical/transformation zone component is present General Categorization Negative for intraepithelial lesion or malignancy. Descriptive Interpretation Negative for intraepithelial lesion or malignancy at 1404 EDT Laboratory comment SEE COMMENT Slide(s) initially screened by BRENDA Umanzor at [facility] [address] [facility] [phone] QC review performed by BRENDA Ware at [facility] [place] [phone] By the signature on this report, the individual or group listed as making the Final Interpretation/Diagnosis certifies that they have reviewed this case. This specimen has been analyzed by the ThinPrep Imaging System ([employer] an automated imaging and review system, which assists the laboratory in evaluating cells on ThinPrep Pap tests. Following automated imaging, selected gallo from every slide were reviewed by a reflexologist and/or pathologist. Cervical cytology is a screening procedure primarily for squamous cancers and precursors and has associated false-negative and false-positives results as evidenced by published data. Your patient's test should be interpreted in this context, together with the patient's history and clinical findings. Regular sampling and follow-up of unexplained clinical signs and symptoms are recommended to minimize false negative results. LAB AP HPV HR Always (all interpretations) LAB AP HPV GENOTYPE QUESTION Yes Normal [facility] HPV 16 and 18 and 31+33+35+3 9+45+51+52+56+58+59+66+68 DNA Pnl (Cvx)on 11-17-2024 HPV 16 DNA MICHAEL+probe Ql (Unsp spec) Negative Normal Negative [facility] Comment on above: Order Comment: Testi ng for high-risk (HR) types of human papilloma virus (HPV) is performed by the Lion horacio HPV Test. The horacio HPV Test is a qualitative polymerase chain reaction that amplifies DNA of HPV16, HPV18, and 12 other high-risk HPV types (31, 33, 35, 39, 45, 51, 52, 56, 58, 59, 66, and 68) associated with cervical cancer and its precursor lesions. A positive result indicates the presence of HPV DNA due to one or more of the 14 genotypes: 16, 18, 31, 33, 35, 39, 45, 51, 52, 56, 58, 59, 66, and 68. Negative results indicates HPV DNA concentrations are undectectable or below the pre-set threshold for detection. False negative results may be associated with unoptimized sampling. A negative HR HPV result does not exclude the possibility of future cytologic HSIL or underlying CIN2-3 or cancer. This test is approved by the [place] Food and Drug Administration. Results of this test should be interpreted in conjunction with the patient Pap test results. Please refer to ASCCP current quidelines for the use of HPV DNA testing, result interpretation, and patient management. The performance of this test was verified by the [facility] at [facility]. The lab is certified under the Clinical Laboratory Amendments of 1988 (CLIA 88) as qualified to perform high complexity clinical laboratory testing. PERFORMING LAB LOCATIONS [facility]: [facility] [place] [address] Performed By: #### 7 1432-9 #### ELIEL Desai ([id number]) [facility] ([facility]) [address] [place], [place] [id number] HPV 18 DNA MICHAEL+probe Ql (Unsp spec) Negative Normal Negative [facility] Comment on above: Order Comment: Testi ng for high-risk (HR) types of human papilloma virus (HPV) is performed by the [employer] hor[employer] HPV Test. The horacio HPV Test is a qualitative polymerase chain reaction that amplifies DNA of HPV16, HPV18, and 12 other high-risk HPV types (31, 33, 35, 39, 45, 51, 52, 56, 58, 59, 66, and 68) associated with cervical cancer and its precursor lesions. A positive result indicates the presence of HPV DNA due to one or more of the 14 genotypes: 16, 18, 31, 33, 35, 39, 45, 51, 52, 56, 58, 59, 66, and 68. Negative results indicates HPV DNA concentrations are undectectable or below the pre-set threshold for detection. False negative results may be associated with unoptimized sampling. A negative HR HPV result does not exclude the possibility of future cytologic HSIL or underlying CIN2-3 or cancer. This test is approved by the [place] Food and Drug Administration. Results of this test should be interpreted in conjunction with the patient Pap test results. Please refer to ASCCP current quidelines for the use of HPV DNA testing, result interpretation, and patient management. The performance of this test was verified by the [facility] at [facility]. The lab is certified under the Clinical Laboratory Amendments of 1988 (CLIA 88) as qualified to perform high complexity clinical laboratory testing. PERFORMING LAB LOCATIONS [facility]: [facility] [place] [address] Performed By: #### 7 1432-9 #### ELIEL Desai ([id number]) [facility] ([facility]) [address] [place] [address] HPV 31+33+35+39+45+51+5 2+56+58+59+66+68 DNA MICHAEL+probe Ql (Genital specimen) Negative Normal Negative [facility] Comment on above: Order Comment: Testi ng for high-risk (HR) types of human papilloma virus (HPV) is performed by the [facility] horacio HPV Test. The horacio HPV Test is a qualitative polymerase chain reaction that amplifies DNA of HPV16, HPV18, and 12 other high-risk HPV types (31, 33, 35, 39, 45, 51, 52, 56, 58, 59, 66, and 68) associated with cervical cancer and its precursor lesions. A positive result indicates the presence of HPV DNA due to one or more of the 14 genotypes: 16, 18, 31, 33, 35, 39, 45, 51, 52, 56, 58, 59, 66, and 68. Negative results indicates HPV DNA concentrations are undectectable or below the pre-set threshold for detection. False negative results may be associated with unoptimized sampling. A negative HR HPV result does not exclude the possibility of future cytologic HSIL or underlying CIN2-3 or cancer. This test is approved by the [place] Food and Drug Administration. Results of this test should be interpreted in conjunction with the patient Pap test results. Please refer to ASCCP current quidelines for the use of HPV DNA testing, result interpretation, and patient management. The performance of this test was verified by the [facility] at [facility]. The lab is certified under the Clinical Laboratory Amendments of 1988 (CLIA 88) as qualified to perform high complexity clinical laboratory testing. PERFORMING LAB LOCATIONS [facility]: [address] [place] [address] Performed By: #### 7 1432-9 #### ELIEL Desai ([id number]) [facility] ([facility]) [address] [place] [address] Human papilloma virus high-risk genotypes panel Negative Normal Negative [facility] Comment on above: Order Comment: Testi ng for high-risk (HR) types of human papilloma virus (HPV) is performed by the [facility] hor[employer] HPV Test. The horacio HPV Test is a qualitative polymerase chain reaction that amplifies DNA of HPV16, HPV18, and 12 other high-risk HPV types (31, 33, 35, 39, 45, 51, 52, 56, 58, 59, 66, and 68) associated with cervical cancer and its precursor lesions. A positive result indicates the presence of HPV DNA due to one or more of the 14 genotypes: 16, 18, 31, 33, 35, 39, 45, 51, 52, 56, 58, 59, 66, and 68. Negative results indicates HPV DNA concentrations are undectectable or below the pre-set threshold for detection. False negative results may be associated with unoptimized sampling. A negative HR HPV result does not exclude the possibility of future cytologic HSIL or underlying CIN2-3 or cancer. This test is approved by the US Food and Drug Administration. Results of this test should be interpreted in conjunction with the patient Pap test results. Please refer to ASCCP current quidelines for the use of HPV DNA testing, result interpretation, and patient management. The performance of this test was verified by the [facility] Laboratory at [facility]. The lab is certified under the Clinical Laboratory Amendments of 1988 (CLIA 88) as qualified to perform high complexity clinical laboratory testing. PERFORMING LAB LOCATIONS [facility]: [address] [place] [address] Performed By: #### 7 1432-9 #### ELIEL Desai ([id number]) [facility] ([facility]) [address] [place] [address] COLONOSCOPYon 11-09-2024 Colonoscopy Table formatting fro m the original result was not included. Impression Normal. Performed random biopsy using biopsy forceps. External hemorrhoids Findings All observed locations appeared normal. Performed random biopsy using biopsy forceps. The IC anastomosis was stenotic but the paulo-TI appeared normal - bx obtainedConsistent with quiescent IBD; Rutgeerts score i0, SES-CD scores: rectum 0, sigmoid/descending colon 0, transverse colon 0, ascending colon 0, ileum 0, total score 0 External hemorrhoids observed during retroflexion Recommendation Await pathology results Follow up with me in clinic, due: 12/09/2024 Continue Humira and AZN Indication Crohn's disease of small and large intestines with complication (Multi) Post-Op Diagnosis Crohn's disease of small and large intestines with complication (Multi) Hemorrhoids, unspecified hemorrhoid type Staff Staff Role Padma Ware MD Proceduralist Medications See Anesthesia Record. Preprocedure A history and physical has been performed, and patient medication allergies have been reviewed. The patient's tolerance of previous anesthesia has been reviewed. The risks and benefits of the procedure and the sedation options and risks were discussed with the patient. All questions were answered and informed consent obtained. Details of the Procedure The patient underwent monitored anesthesia care, which was administered by an anesthesia professional. The patient's blood pressure, ECG, ETCO2, heart rate, level of consciousness, oxygen and respirations were monitored throughout the procedure. A digital rectal exam was performed. The scope was introduced through the anus and advanced to the cecum. Retroflexion was performed in the rectum. The quality of bowel preparation was evaluated using the Lequire Bowel Preparation Scale with scores of: right colon = 3, transverse colon = 3, left colon = 3. The total BBPS score was 9. Bowel prep was adequate. The patient's estimated blood loss was minimal. The procedure was not difficult. The patient tolerated the procedure well. There were no apparent adverse events. Events Procedure Events Event Event Time ENDO SCOPE IN TIME 11/09/2024 11:08 AM ENDO CECUM REACHED 11/09/2024 11:11 AM ENDO SCOPE OUT TIME 11/09/2024 11:22 AM Specimens ID Type Source Tests Collected by Time 1 : normal appearing Tissue TERMINAL ILEUM BIOPSY SURGICAL PATHOLOGY EXAM [facility] 11/09/2024 1102 2 : normal appearing Tissue COLON - CECUM BIOPSY SURGICAL PATHOLOGY EXAM [facility] 11/09/2024 1103 3 : no active disease Tissue COLON - ASCENDING BIOPSY SURGICAL PATHOLOGY EXAM [facility] 11/09/2024 1104 4 : no active disease Tissue COLON - TRANSVERSE BIOPSY SURGICAL PATHOLOGY EXAM [facility] 11/09/2024 1105 5 : no active disease Tissue COLON - DESCENDING BIOPSY SURGICAL PATHOLOGY EXAM [facility] 11/09/2024 1105 6 : no active disease Tissue COLON - SIGMOID BIOPSY SURGICAL PATHOLOGY EXAM [facility] 11/09/2024 1105 7 : no active disease Tissue RECTUM BIOPSY SURGICAL PATHOLOGY EXAM [facility] 11/09/2024 1106 Procedure Location [facility] External Facility [facility] [address] [address] [facility] [address] Referring Provider Padma Orozco MD Procedure Provider MD Padma Warren [facility] Colonoscopy studyon 11-10-19 Table formatting fro m the original result was not included. Impression Normal. Performed random biopsy using biopsy forceps. External hemorrhoids Findings All observed locations appeared normal. Performed random biopsy using biopsy forceps. The IC anastomosis was stenotic but the paulo-TI appeared normal - bx obtainedConsistent with quiescent IBD; Rutgeerts score i0, SES-CD scores: rectum 0, sigmoid/descending colon 0, transverse colon 0, ascending colon 0, ileum 0, total score 0 External hemorrhoids observed during retroflexion Recommendation Await pathology results Follow up with me in clinic, due: 12/09/2024 Continue Humira and AZN Indication Crohn's disease of small and large intestines with complication (Multi) Post-Op Diagnosis Crohn's disease of small and large intestines with complication (Multi) Hemorrhoids, unspecified hemorrhoid type Staff Staff Role Padma Ware MD Proceduralist Medications See Anesthesia Record. Preprocedure A history and physical has been performed, and patient medication allergies have been reviewed. The patient's tolerance of previous anesthesia has been reviewed. The risks and benefits of the procedure and the sedation options and risks were discussed with the patient. All questions were answered and informed consent obtained. Details of the Procedure The patient underwent monitored anesthesia care, which was administered by an anesthesia professional. The patient's blood pressure, ECG, ETCO2, heart rate, level of consciousness, oxygen and respirations were monitored throughout the procedure. A digital rectal exam was performed. The scope was introduced through the anus and advanced to the cecum. Retroflexion was performed in the rectum. The quality of bowel preparation was evaluated using the Lequire Bowel Preparation Scale with scores of: right colon = 3, transverse colon = 3, left colon = 3. The total BBPS score was 9. Bowel prep was adequate. The patient's estimated blood loss was minimal. The procedure was not difficult. The patient tolerated the procedure well. There were no apparent adverse events. Events Procedure Events Event Event Time ENDO SCOPE IN TIME 11/09/2024 11:08 AM ENDO CECUM REACHED 11/09/2024 11:11 AM ENDO SCOPE OUT TIME 11/09/2024 11:22 AM Specimens ID Type Source Tests Collected by Time 1 : normal appearing Tissue TERMINAL ILEUM BIOPSY SURGICAL PATHOLOGY EXAM [facility] 11/09/2024 1102 2 : normal appearing Tissue COLON - CECUM BIOPSY SURGICAL PATHOLOGY EXAM [facility] 11/09/2024 1103 3 : no active disease Tissue COLON - ASCENDING BIOPSY SURGICAL PATHOLOGY EXAM [facility] 11/09/2024 1104 4 : no active disease Tissue COLON - TRANSVERSE BIOPSY SURGICAL PATHOLOGY EXAM [facility] 11/09/2024 1105 5 : no active disease Tissue COLON - DESCENDING BIOPSY SURGICAL PATHOLOGY EXAM [facility] 11/09/2024 1105 6 : no active disease Tissue COLON - SIGMOID BIOPSY SURGICAL PATHOLOGY EXAM [facility] 11/09/2024 110 7 : no active disease Tissue RECTUM BIOPSY SURGICAL PATHOLOGY EXAM [facility] 11/09/2024 1106 Procedure Location [facility] External Facility [facility] [address] [address] [facility] [address] Referring Provider Padma Orozco MD Procedure Provider MD Padma Warren [facility] Work Phone: [facility] Work Phone: Radiology Study observation (narrative) [facility] Work Phone: Surgical pathology studyon 0 11-09-2024 Surgical pathology study Pathology report.total SEE COMMENT Surgical Pathology Case: [id number] Authorizing Provider: Padma Ware MD Collected: 11/09/2024 1102 Ordering Location: [facility] Received: 11/10/2024 0542 Pathologist: Aung Flores MD Specimens: A) - TERMINAL ILEUM BIOPSY, normal appearing B) - COLON - CECUM BIOPSY, normal appearing C) - COLON - ASCENDING BIOPSY, no active disease D) - COLON - TRANSVERSE BIOPSY, no active disease E) - COLON - DESCENDING BIOPSY, no active disease F) - COLON - SIGMOID BIOPSY, no active disease G) - RECTUM BIOPSY, no active disease Path report.final diagnosis SEE COMMENT A. TERMINAL ILEUM BIOPSY: -- ILEAL MUCOSA WITH NO SIGNIFICANT PATHOLOGICAL FINDINGS B. CECUM BIOPSY: -- COLONIC MUCOSA WITH NO SIGNIFICANT PATHOLOGICAL FINDINGS C. ASCENDING COLON BIOPSY: -- COLONIC MUCOSA WITH NO SIGNIFICANT PATHOLOGICAL FINDINGS D. TRANSVERSE COLON BIOPSY: -- COLONIC MUCOSA WITH NO SIGNIFICANT PATHOLOGICAL FINDINGS E. DESCENDING COLON BIOPSY: -- COLONIC MUCOSA WITH NO SIGNIFICANT PATHOLOGICAL FINDINGS F. SIGMOID COLON BIOPSY: -- COLONIC MUCOSA WITH NO SIGNIFICANT PATHOLOGICAL FINDINGS G. RECTUM BIOPSY: -- COLONIC MUCOSA WITH NO SIGNIFICANT PATHOLOGICAL FINDINGS at 1245 EDT Laboratory comment By the signature on this report, the individual or group listed as making the Final Interpretation/Diagnosis certifies that they have reviewed this case. Path report.gross observation SEE COMMENT A. Received in formalin, labeled with the patient's name and hospital number and terminal ileum biopsy , are two fragments of wayne, soft tissue aggregating to 0.5 x 0.2 x 0.2 cm. The specimen is submitted in toto in one cassette. JS B. Received in formalin, labeled with the patient's name and hospital number and cecum biopsy , are multiple fragments of wayne, soft tissue aggregating to 0.6 x 0.2 x 0.1 cm. The specimen is submitted in toto in one cassette. JS C. Received in formalin, labeled with the patient's name and hospital number and ascending biopsy , are multiple fragments of wayne, soft tissue aggregating to 1.2 x 0.2 x 0.1 cm. The specimen is submitted in toto in one cassette. JS D. Received in formalin, labeled with the patient's name and hospital number and transverse biopsy , are multiple fragments of wayne, soft tissue aggregating to 0.8 x 0.6 x 0.2 cm. The specimen is submitted in toto in one cassette. JS E. Received in formalin, labeled with the patient's name and hospital number and descending biopsy , are multiple fragments of wayne, soft tissue aggregating to 0.8 x 0.2 x 0.1 cm. The specimen is submitted in toto in one cassette. JS F. Received in formalin, labeled with the patient's name and hospital number and sigmoid biopsy , are multiple fragments of wayne, soft tissue aggregating to 1.3 x 0.2 x 0.2 cm. The specimen is submitted in toto in one cassette. JS G. Received in formalin, labeled with the patient's name and hospital number and rectum biopsy , are two fragments of wayne, soft tissue aggregating to 0.4 x 0.2 x 0 point cm. The specimen is submitted in toto in one cassette. JS Normal [facility] CBC W Auto Differential pane l (Bld)on 08-17-2024 Basophils (Bld) [#/Vol] 0.03 x10*3/uL Normal 0.00-0.10 [facility] Comment on above: Performed By: #### 5 7021-8 #### AR CHATMAN ([id number]) [facility] ([facility]) [address] [place] [address] DR [place], [place] [address] Basophils/100 WBC (Bld) 0.3 % Normal 0.0-2.0 [facility] Comment on above: Performed By: #### 5 7021-8 #### AR CHATMAN ([id number]) [facility] ([facility]) [address] [place] [address] [place] [id number] Eosinophils (Bld) [#/Vol] 0.09 x10*3/uL Normal 0.00-0.70 [facility] Comment on above: Performed By: #### 5 7021-8 #### AR CHATMAN ([id number]) [facility] ([facility]) [address] [place] [address] [place] [id number] Eosinophils/100 WBC (Bld) 0.9 % Normal 0.0-6.0 [facility] Comment on above: Performed By: #### 5 7021-8 #### AR CHATMAN ([id number]) [facility] ([facility]) [address] [place] [address] [place] [address] Erythrocyte distribution width (RBC) [Ratio] 14.3 % Normal 11.5-14.5 [facility] Comment on above: Performed By: #### 5 7021-8 #### AR CHATMAN ([id number]) [facility] ([facility]) [address] [place] [address] [place] [address] Hematocrit (Bld) [Volume fraction] 34.3 % Low 36.0-46.0 [facility] Comment on above: Performed By: #### 5 7021-8 #### AR CHATMAN ([id number]) [facility] ([facility]) [address] [place] [address] [place] [address] Hemoglobin (Bld) [Mass/Vol] 10.7 g/dL Low 12.0-16.0 [facility] Comment on above: Performed By: #### 5 7021-8 #### AR CHATMAN ([id number]) [facility] ([facility]) [address] [place] [address] [place] [address] Immature granulocytes (Bld) [#/Vol] 0.01 x10*3/uL Normal 0.00-0.70 [facility] Comment on above: Performed By: #### 5 7021-8 #### AR CHATMAN ([id number]) [facility] ([facility]) [address] [place] [address] [place] [address] Immature granulocytes/100 WBC (Bld) 0.1 % Normal 0.0-0.9 [facility] Comment on above: Result Comment: Zulay ture Granulocyte Count (IG) includes promyelocytes, myelocytes and metamyelocytes but does not include bands. Percent differential counts (%) should be interpreted in the context of the absolute cell counts (cells/UL). Performed By: #### 5 7021-8 #### AR CHATMAN ([id number]) [facility] ([facility]) [address] [place] [address] [place] [address] Lymphocytes (Bld) [#/Vol] 3.00 x10*3/uL Normal 1.20-4.80 [facility] Comment on above: Performed By: #### 5 7021-8 #### AR CHATMAN ([id number]) [facility] ([facility]) [address] [place] [address] [place] [address] Lymphocytes/100 WBC (Bld) 31.1 % Normal 13.0-44.0 [facility] Comment on above: Performed By: #### 5 7021-8 #### AR CHATMAN ([id number]) [facility] ([facility]) [address] [place] [address] [place] [address] MCH (RBC) [Entitic mass] 26.2 pg Normal 26.0-34.0 [facility] Comment on above: Performed By: #### 5 7021-8 #### AR CHATMAN ([id number]) [facility] ([facility]) [address] [place] [address] [place] [address] MCHC (RBC) [Mass/Vol] 31.2 g/dL Low 32.0-36.0 [facility] Comment on above: Performed By: #### 5 7021-8 #### AR CHATMAN ([id number]) [facility] ([facility]) [address] [place] [address] [place] [id number] MCV (RBC) [Entitic vol] 84 fL Normal 80-100 [facility] Comment on above: Performed By: #### 5 7021-8 #### AR CHATMAN ([id number]) [facility] ([facility]) [address] [place] [address] [place] [address] Monocytes (Bld) [#/Vol] 0.49 x10*3/uL Normal 0.10-1.00 [facility] Comment on above: Performed By: #### 5 7021-8 #### AR CHATMAN ([id number]) [facility] ([facility]) [address] [place] [address] [place] [address] Monocytes/100 WBC (Bld) 5.1 % Normal 2.0-10.0 [facility] Comment on above: Performed By: #### 5 7021-8 #### AR CHATMAN ([id number]) [facility] ([facility]) [address] [place] [address] [place] [address] Neutrophils (Bld) [#/Vol] 6.03 x10*3/uL Normal 1.20-7.70 [facility] Comment on above: Result Comment: Perc ent differential counts (%) should be interpreted in the context of the absolute cell counts (cells/uL). Performed By: #### 5 7021-8 #### AR CHATMAN ([id number]) [facility] ([facility]) [address] [place] [address] [place] [address] Neutrophils/100 WBC (Bld) 62.5 % Normal 40.0-80.0 [facility] Comment on above: Performed By: #### 5 7021-8 #### AR CHATMAN ([id number]) [facility] ([facility]) [address] [place] [address] [place] [address] Platelets (Bld) [#/Vol] 299 x10*3/uL Normal 150-450 [facility] Comment on above: Performed By: #### 5 7021-8 #### AR CHATMAN ([id number]) [facility] ([facility]) [address] [place] [address] [place] [address] RBC (Bld) [#/Vol] 4.09 x10*6/uL Normal 4.00-5.20 [facility] Comment on above: Performed By: #### 5 7021-8 #### AR CHATMAN ([id number]) [facility] ([facility]) [address] [place] [address] [place] [address] WBC (Bld) [#/Vol] 9.7 x10*3/uL Normal 4.4-11.3 [facility] Comment on above: Performed By: #### 5 7021-8 #### AR CHATMAN ([id number]) [facility] ([facility]) [address] [place] [address] [place] [address] Cobalaminson 08-17-2024 Cobalamin (Vitamin B12) [Mass/Vol] 400 pg/mL Normal 211-911 [facility] Comment on above: Performed By: #### 2 4323-8 #### AR CHATMAN ([id number]) [facility] ([facility]) [address] [place] [address] [place] [address] Ferritinon 08-17-2024 Ferritin [Mass/Vol] 44 ng/mL Normal 8-150 [facility] Comment on above: Performed By: #### 2 276-4 #### AR CHATMAN ([id number]) [facility] [place] [address] [place] [address] Iron and Iron binding capaci ty panelon 08-17-2024 Iron [Mass/Vol] 62 ug/dL Normal 35-150 [facility] Comment on above: Performed By: #### 2 4323-8 #### AR CHATMAN ([id number]) [facility] ([facility]) [address] [place] [address] [place] [address] Iron binding capacity [Mass/Vol] 341 ug/dL Normal 240-445 [facility] Comment on above: Performed By: #### 2 4323-8 #### AR CHATMAN ([id number]) [facility] ([facility]) [address] [place] [address] [place] [address] Iron binding capacity.unsaturate d [Mass/Vol] 279 ug/dL Normal 110-370 [facility] Comment on above: Performed By: #### 2 4323-8 #### AR CHATMAN ([id number]) [facility] ([facility]) [address] [place] [address] [place] [address] Iron saturation [Mass fraction] 18 % Low 25-45 [facility] Comment on above: Performed By: #### 2 4323-8 #### AR CHATMAN ([id number]) [facility] ([facility]) [address] [place] [address] [place] [address] THIOPURINE METABOLITES BY LC -MS/MSon 08-17-2024 6-Methylmercaptopur ine (RBC) [Entitic substance] See Note Normal <=5700 [facility] Comment on above: Result Comment: The result for 6-methylmercaptopurine is below the limit of quantification for this assay and cannot be normalized to RBC. Performed By: [facility] [address] [place] [address] Supervisor Floor Assembly: Parth Trevizo MD, PhD CLIA Number: [id number] Performed By: #### 2 4323-8 #### AR CHATMAN ([id number]) [facility] ([facility]) [address] [place] [address] [place] [address] 6-Thioguanine (RBC) [Entitic substance] 226 pmol/8x10(8)RBC Low 235-450 [facility] Comment on above: Result Comment: INTE RPRETIVE [...] developed and its performance characteristics determined by [facility]. It has not been cleared or approved by the U.S. Food and Drug Administration. This test was performed in a CLIA-certified laboratory and is intended for clinical purposes. Performed By: #### 2 4323-8 #### AR CHATMAN ([id number]) [facility] ([facility]) [address] [place] [address] ADALIMUMAB LEVEL AND ANTI-DR UG ANTIBODY FOR RHEUMATIC DISEASESon 07-11-2024 ADALIMUMAB AB, RHEUM <10 Normal <10 [facility] Comment on above: Order Comment: FASTI NG:NO FASTING: NO Performed By: #### 4 420 #### [facility] [address] , [address] [place] [id number] Gluing Crew Leader: Jake Alexander MD #### [id number] #### [facility], [address] [place] [address] Gluing Crew Leader: Julia Luna MD,PhD,BRYANT ADALIMUMAB LEVEL, RHEUM 12.0 mcg/mL Normal [facility] Comment on above: Order Comment: FASTI NG:NO FASTING: NO Performed By: #### 4 420 #### [facility] [address], [address] [place] [address] Gluing Crew Leader: Jake Alexander MD #### [id number] #### [facility], [address] [place] [address] Gluing Crew Leader: Julia Luna MD,PhD,BRYANT COMMENT SEE NOTE Normal [facility] Comment on above: Order Comment: FASTI NG:NO FASTING: NO Result Comment: This test was developed and its analytical performance characteristics have been determined by [facility]. It has not been cleared or approved by FDA. This assay has been validated pursuant to the CLIA regulations and is used for clinical purposes. For additional information, please refer to https://education.EqualEyes/faq/JJM823 (This link is being provided for informational/educational purposes only.) Performed By: #### 4 420 #### [facility] [address], [address] [place] [phone] Gluing Crew Leader: Jake Alexander MD #### [id number] #### [facility] [address] [place] [address] Gluing Crew Leader: Julia Luna MD,PhD,BRYANT INTERPRETATION SEE NOTE Normal [facility] Comment on above: Order Comment: FASTI NG:NO FASTING: NO Result Comment: Amanda ral studies suggest a target adalimumab trough concentration of 5-12 mcg/mL. Subtherapeutic adalimumab levels may be due to a patient not yet achieving a steady state trough level early in therapy, inadequate dosing, a dosing interval that is too long, or accelerated adalimumab clearance. Accelerated adalimumab clearance may be explained by the presence of adalimumab anti-drug antibody or rheumatoid factor in the patient's serum, or may be caused by other diseases that indirectly lead to immunoglobulin loss (i.e. kidney disease, protein-losing gastroenteropathy). If adalimumab level is subtherapeutic but total adalimumab anti-drug antibody is not detected: Patients with a subtherapeutic adalimumab trough level, but no anti-drug antibody, may benefit from an increased adalimumab dose. If adalimumab level is subtherapeutic and total adalimumab anti-drug antibody is detected: Detectable serum adalimumab anti-drug antibody may cause accelerated adalimumab clearance leading to reduced trough levels and a compromised clinical response. Such patients are more likely to benefit from a switch in biologic therapy than from an increase in adalimumab dose. If adalimumab level is therapeutic and total adalimumab anti-drug antibody is not detected: Patients who do not respond or who lose their clinical response, inflammation is likely to be driven by a process that is not TNF alpha dependent. A switch to a different class of therapy should be considered. If adalimumab level is therapeutic and total adalimumab anti-drug antibody is detected: If the patient is responding clinically, the detected anti-drug antibody may not be clinically significant because the detected anti-drug antibody may not be functional or the level is inadequate to accelerate adalimumab clearance. Anti-drug antibody may disappear over time or increase, and, if increased, may cause subtherapeutic adalimumab levels and a loss of response in the future. Patients with a loss of adalimumab response despite therapeutic trough levels may benefit from a switch to a different class of therapy. Addition of methotrexate to the treatment regimen may suppress development of ADA. This information is provided for informational purposes only and is not intended as medical advice. A physician's test selection and interpretation, diagnosis, and patient management decisions should be based on his/her education, clinical expertise, and assessment of the patient. The treating healthcare professional should refer to the line mover's approved labeling for prescribing, warnings, side effects and other important information. Performed By: #### 4 420 #### [facility] [place] [id number] Gluing Crew Leader: Jake Alexander MD #### [id number] #### [facility], [address] [place] [address] Gluing Crew Leader: Juila Luna MD,PhD,BRYANT C-REACTIVE PROTEINon 025 CRP [Mass/Vol] 6.8 mg/L Normal <8.0 [facility] Comment on above: Performed By: #### 4 420 #### [facility] [address], [address] [place] [phone] Gluing Crew Leader: Jake Alexander MD #### [id number] #### [facility], [address] [place] [address] Gluing Crew Leader: Julia Luna MD,PhD,BRYANT THIOPURINE METABOLITESon 6 MMP <500 Normal <5700 [facility] Comment on above: Order Comment: FASTI NG:YES FASTING: YES Result Comment: (Not e) These results are useful in assessing a patient's metabolism of azathioprine (AZA) or 6-mercaptopurine (6-MP). A 6-thioguanine (6-TG) level greater than 235 pmol/8x10(8) RBC has been associated with remission and very high levels have been associated with leucopenia. 6-methylmercaptopurine (6-MMP) levels greater than 5700 pmol/8x10(8) RBC may be associated with hepatoxicity. This test was developed and its analytical performance characteristics have been determined by [facility]. It has not been cleared or approved by the FDA. This assay has been validated pursuant to the CLIA regulations and is used for clinical purposes. [facility] med fusion [address] [place] [address],[address] [place] [address] Son Broderick MD, PhD Performed By: #### 9 1745 #### [facility] [address] [place] [address], [address] [place] [phone] Gluing Crew Leader: Son Broderick MD,PhD 6 TG 309 pmol/8x10(8)RBC Normal 235-400 [facility] Comment on above: Order Comment: FASTI NG:YES FASTING: YES Result Comment: (Not e) This test was developed and its analytical performance characteristics have been determined by [facility]. It has not been cleared or approved by the FDA. This assay has been validated pursuant to the CLIA regulations and is used for clinical purposes. Performed By: #### 9 1745 #### [facility] [address] [place] [address], [address] [place] [phone] Gluing Crew Leader: Son Broderick MD,PhD T4, FREEon 06-18-2024 Free T4 [Mass/Vol] 1.6 ng/dL Normal 0.8-1.8 [facility] Comment on above: Performed By: #### 8 61, [address] #### [facility] [place] [address] Gluing Crew Leader: Jake Alexander MD TSHon 06-18-2024 TSH Qn 0.35 m[IU]/L Low [facility] Comment on above: Order Comment: FASTI NG:YES FASTING: YES Result Comment: Refe rence Range > or = 20 Years 0.40-4.50 Ranges First trimester 0.26-2.66 Second trimester 0.55-2.73 Third trimester 0.43-2.91 Performed By: #### 8 99 #### [facility] [place] [address] Gluing Crew Leader: Jake Alexander MD TSH W/REFLEX TO FT4on 2024 TSH W/REFLEX TO FT4 0.37 mIU/L Low [facility] Comment on above: Order Comment: FASTI NG:YES FASTING: YES Result Comment: Refe rence Range > or = 20 Years 0.40-4.50 Ranges First trimester 0.26-2.66 Second trimester 0.55-2.73 Third trimester 0.43-2.91 Performed By: #### 8 34, 13347 #### [facility] [place] [address] Gluing Crew Leader: Jake Alexander MD CBC W Auto Differential pane l (Bld)on 06-17-2024 Basophils (Bld) [#/Vol] 0.06 x10*3/uL Normal 0.00-0.10 [facility] Comment on above: Performed By: #### 3 4529-8 #### ELIEL COOK L ([id number]) [facility] ([facility]) [address] [place] [address] Basophils/100 WBC (Bld) 0.6 % Normal 0.0-2.0 [facility] Comment on above: Performed By: #### 3 4529-8 #### ELIEL GRIFFITHMOARIES L ([id number]) [facility] ([facility]) [address] [place] [address] Eosinophils (Bld) [#/Vol] 0.10 x10*3/uL Normal 0.00-0.70 [facility] Comment on above: Performed By: #### 3 4529-8 #### ELIEL Desai ([id number]) [facility] ([facility]) [address] [place] [address] Eosinophils/100 WBC (Bld) 1.0 % Normal 0.0-6.0 [facility] Comment on above: Performed By: #### 3 4529-8 #### ELIEL Desai ([id number]) [facility] ([facility]) [address] [place] [address] Erythrocyte distribution width (RBC) [Ratio] 14.8 % High 11.5-14.5 [facility] Comment on above: Performed By: #### 3 4529-8 #### ELIEL Desai ([id number]) [facility] ([facility]) [address] [place] [address] Hematocrit (Bld) [Volume fraction] 37.1 % Normal 36.0-46.0 [facility] Comment on above: Performed By: #### 3 4529-8 #### ELIEL Desai ([id number]) [facility] ([facility]) [address] [place] [address] Hemoglobin (Bld) [Mass/Vol] 11.0 g/dL Low 12.0-16.0 [facility] Comment on above: Performed By: #### 3 4529-8 #### ELIEL Desai ([id number]) [facility] ([facility]) [address] [place] [address] Immature granulocytes (Bld) [#/Vol] 0.02 x10*3/uL Normal 0.00-0.70 [facility] Comment on above: Performed By: #### 3 4529-8 #### ELIEL Desai ([id number]) [facility] ([facility]) [address] [place] [address] Immature granulocytes/100 WBC (Bld) 0.2 % Normal 0.0-0.9 [facility] Comment on above: Result Comment: Zulay ture Granulocyte Count (IG) includes promyelocytes, myelocytes and metamyelocytes but does not include bands. Percent differential counts (%) should be interpreted in the context of the absolute cell counts (cells/UL). Performed By: #### 3 4529-8 #### ELIEL Desai ([id number]) [facility] ([facility]) [address] [place] [address] Lymphocytes (Bld) [#/Vol] 3.06 x10*3/uL Normal 1.20-4.80 [facility] Comment on above: Performed By: #### 3 4529-8 #### ELIEL Desai ([id number]) [facility] ([facility]) [address] [place] [address] Lymphocytes/100 WBC (Bld) 31.7 % Normal 13.0-44.0 [facility] Comment on above: Performed By: #### 3 4529-8 #### ELIEL Desai ([id number]) [facility] ([facility]) [id number] [place] [address] MCH (RBC) [Entitic mass] 25.9 pg Low 26.0-34.0 [facility] Comment on above: Performed By: #### 3 4529-8 #### ELIEL Desai ([id number]) [facility] ([facility]) [address] [place] [address] MCHC (RBC) [Mass/Vol] 29.6 g/dL Low 32.0-36.0 [facility] Comment on above: Performed By: #### 3 4529-8 #### ELIEL Desai ([id number]) [facility] ([facility]) [address] [place] [address] MCV (RBC) [Entitic vol] 87 fL Normal 80-100 [facility] Comment on above: Performed By: #### 3 4529-8 #### ELIEL Desai ([id number]) [facility] ([facility]) [address] [place] [address] Monocytes (Bld) [#/Vol] 0.42 x10*3/uL Normal 0.10-1.00 [facility] Comment on above: Performed By: #### 3 4529-8 #### ELIEL Desai ([id number]) [facility] ([facility]) [address] [place] [address] Monocytes/100 WBC (Bld) 4.4 % Normal 2.0-10.0 [facility] Comment on above: Performed By: #### 3 4529-8 #### ELIEL Desai ([id number]) [facility] ([facility]) [address] [place] [address] Neutrophils (Bld) [#/Vol] 5.98 x10*3/uL Normal 1.20-7.70 [facility] Comment on above: Result Comment: Perc ent differential counts (%) should be interpreted in the context of the absolute cell counts (cells/uL). Performed By: #### 3 4529-8 #### ELIEL Desai ([id number]) [facility] ([facility]) [address] [place] [address] Neutrophils/100 WBC (Bld) 62.1 % Normal 40.0-80.0 [facility] Comment on above: Performed By: #### 3 4529-8 #### ELIEL Desai ([id number]) [facility] ([facility]) [address] [place] [address] Nucleated RBC/100 WBC (Bld) [Ratio] 0.0 /100 WBCs Normal 0.0-0.0 [facility] Comment on above: Performed By: #### 3 4529-8 #### ELIEL Desai ([id number]) [facility] ([facility]) [address] [place] [address] Platelets (Bld) [#/Vol] 324 x10*3/uL Normal 150-450 [facility] Comment on above: Performed By: #### 3 4529-8 #### ELIEL Desai ([id number]) [facility] ([facility]) [address] [place] [address] RBC (Bld) [#/Vol] 4.25 x10*6/uL Normal 4.00-5.[address] [facility] Comment on above: Performed By: #### 3 4529-8 #### ELIEL Desai ([id number]) [facility] ([facility]) [address] [place] [address] WBC (Bld) [#/Vol] 9.6 x10*3/uL Normal 4.4-11.3 [facility] Comment on above: Performed By: #### 3 4529-8 #### ELIEL Desai ([id number]) [facility] ([facility]) [address] [place] [address] Cobalaminson 06-17-2024 Cobalamin (Vitamin B12) [Mass/Vol] 477 pg/mL Normal 211-911 [facility] Comment on above: Performed By: #### 3 4529-8 #### ELIEL Desai ([id number]) [facility] ([facility]) [address] [place] [address] Ferritinon 06-17-2024 Ferritin [Mass/Vol] 53 ng/mL Normal 8-150 [facility] Comment on above: Performed By: #### 3 4529-8 #### ELIEL Desai ([id number]) [facility] ([facility]) [address] [place] [address] Iron and Iron binding capaci ty panelon 06-17-2024 Iron [Mass/Vol] 56 ug/dL Normal 35-150 [facility] Comment on above: Performed By: #### 3 4529-8 #### ELIEL Desai ([id number]) [facility] ([facility]) [address] [place] [address] Iron binding capacity [Mass/Vol] 317 ug/dL Normal 240-445 [facility] Comment on above: Performed By: #### 3 4529-8 #### ELIEL Desai ([id number]) [facility] ([facility]) [address] [place] [address] 16936 Iron binding capacity.unsaturate d [Mass/Vol] 261 ug/dL Normal 110-370 [facility] Comment on above: Performed By: #### 3 4529-8 #### ELIEL Desai ([id number]) [facility] ([facility]) [address] [place] [address] Iron saturation [Mass fraction] 18 % Low 25-45 [facility] Comment on above: Performed By: #### 3 4529-8 #### ELIEL Desai ([id number]) [facility] ([facility]) [address] [place] [address] Basic metabolic 2000 panelon 04-20-2024 Anion gap [Moles/Vol] 14 mmol/L 10 - 20 mmol/L [facility] Calcium [Mass/Vol] 8.6 mg/dL 8.6 - 10. 6 mg/dL [facility] Chloride [Moles/Vol] 108 mmol/L High 98 - 107 mmol/L [facility] CO2 [Moles/Vol] 21 mmol/L 21 - 32 mmol/L [facility] Creatinine [Mass/Vol] 0.7 mg/dL 0.50 - 1.05 mg/dL [facility] eGFR - PINF [facility] Comment on above: Calculations of daniel mated GFR are performed using the 2020 CKD-EPI Study Refit equation without the race variable for the IDMS-Traceable creatinine methods. https://jasn.asnjournals.org/content//ASN.00949841 88 Glucose [Mass/Vol] 102 mg/dL High 74 - 99 mg/dL [facility] Interpretation and review of laboratory results Abnormal [facility] Potassium [Moles/Vol] 3.9 mmol/L 3.5 - 5.3 mmol/L [facility] Sodium [Moles/Vol] 139 mmol/L 136 - 145 mmol/L [facility] Urea nitrogen [Mass/Vol] 8 mg/dL 6 - 23 mg/dL [facility] Anion gap [Moles/Vol] 14 mmol/L Normal 10-20 [facility] Comment on above: Performed By: #### 6 MMP #### [facility] (BEAKER) ([id number]) [address] [place] [address] Calcium [Mass/Vol] 8.6 mg/dL Normal 8.6-10.6 [facility] Comment on above: Performed By: #### 6 MMP #### [facility] (BEAKER) ([id number]) [address] [place] [address] Chloride [Moles/Vol] 108 mmol/L High 98-107 [facility] Comment on above: Performed By: #### 6 MMP #### [facility] (BEAKER) ([id number]) [address] [place] [address] CO2 [Moles/Vol] 21 mmol/L Normal 21-32 [facility] Comment on above: Performed By: #### 6 MMP #### [facility] ([employer]) ([id number]) [address] [place] [address] Creatinine [Mass/Vol] 0.70 mg/dL Normal 0.50-1.05 [facility] Comment on above: Performed By: #### 6 MMP #### [facility] ([employer]) ([id number]) [address] [place] [address] GFR/1.73 sq M.predicted MDRD (S/P/Bld) [Vol rate/Area] mL/min/{1.73_m2} Normal >60 [facility] Comment on above: Result Comment: Calc ulations of estimated GFR are performed using the 2020 CKD-EPI Study Refit equation without the race variable for the IDMS-Traceable creatinine methods. https://jasn.asnjournals.org/content//ASN.67991711 88 Performed By: #### 6 MMP #### [facility] (BEAKER) ([id number]) [address] [place] [address] Glucose [Mass/Vol] 102 mg/dL High 74-99 [facility] Comment on above: Performed By: #### 6 MMP #### [facility] ([employer]) ([id number]) [address] [place] [address] Potassium [Moles/Vol] 3.9 mmol/L Normal 3.5-5.3 [facility] Comment on above: Performed By: #### 6 MMP #### [facility] (BEAKER) ([id number]) [address] [place] [address] Sodium [Moles/Vol] 139 mmol/L Normal 136-145 [facility] Comment on above: Performed By: #### 6 MMP #### [facility] (BEAKER) ([id number]) [address] [place] [address] Urea nitrogen [Mass/Vol] 8 mg/dL Normal 6-23 [facility] Comment on above: Performed By: #### 6 MMP #### [facility] (BEAKER) ([id number]) [address] [place] [address] CBC panel Auto (Bld)on 04-20 Erythrocyte distribution width (RBC) [Ratio] 14.6 % High 11.5 - 14.5 % [facility] Hematocrit (Bld) [Volume fraction] 42.3 % 36.0 - 46.0 % [facility] Hemoglobin (Bld) [Mass/Vol] 12.5 g/dL 12.0 - 16.0 g/dL [facility] Interpretation and review of laboratory results Abnormal [facility] MCH (RBC) [Entitic mass] 26.8 pg 26.0 - 34.0 pg [facility] MCHC (RBC) [Mass/Vol] 29.6 g/dL Low 32.0 - 36.0 g/dL [facility] MCV (RBC) [Entitic vol] 91 fL 80 - 100 fL [facility] Nucleated RBC/100 WBC (Bld) [Ratio] 0 % [facility] Platelets (Bld) [#/Vol] 233 10*3/uL [facility] RBC (Bld) [#/Vol] 4.67 10*6/uL [facility] WBC (Bld) [#/Vol] 8.8 10*3/uL [facility] Erythrocyte distribution width (RBC) [Ratio] 14.6 % High 11.5-14.5 [facility] Comment on above: Performed By: #### 3 4529-8 #### ELIEL Desai ([id number]) [facility] ([facility]) [address] [place] [address] Hematocrit (Bld) [Volume fraction] 42.3 % Normal 36.0-46.0 [facility] Comment on above: Performed By: #### 3 4529-8 #### ELIEL Desai ([id number]) [facility] ([facility]) [address] [place] [address] Hemoglobin (Bld) [Mass/Vol] 12.5 g/dL Normal 12.0-16.0 [facility] Comment on above: Performed By: #### 3 4529-8 #### ELIEL Desai ([id number]) [facility] ([facility]) [address] [place] [address] MCH (RBC) [Entitic mass] 26.8 pg Normal 26.0-34.0 [facility] Comment on above: Performed By: #### 3 4529-8 #### ELIEL Desai ([id number]) [facility] ([facility]) [address] [place] [address] MCHC (RBC) [Mass/Vol] 29.6 g/dL Low 32.0-36.0 [facility] Comment on above: Performed By: #### 3 4529-8 #### ELIEL Desai ([id number]) [facility] ([facility]) [address] [place] [address] MCV (RBC) [Entitic vol] 91 fL Normal 80-100 [facility] Comment on above: Performed By: #### 3 4529-8 #### ELIEL Desai ([id number]) [facility] ([facility]) [address] [place] [address] 77845 Nucleated RBC/100 WBC (Bld) [Ratio] 0.0 /100 WBCs Normal 0.0-0.0 [facility] Comment on above: Performed By: #### 3 4529-8 #### ELIEL Desai ([id number]) [facility] ([facility]) [address] [place] [address] Platelets (Bld) [#/Vol] 233 x10*3/uL Normal 150-450 [facility] Comment on above: Performed By: #### 3 4529-8 #### ELIEL Desai ([id number]) [facility] ([facility]) [address] [place] [address] 13127 RBC (Bld) [#/Vol] 4.67 x10*6/uL Normal 4.00-5.[address] [facility] Comment on above: Performed By: #### 3 4529-8 #### ELIEL Desai ([id number]) [facility] ([facility]) [address] [place] [address]0552 WBC (Bld) [#/Vol] 8.8 x10*3/uL Normal 4.4-11.3 [facility] Comment on above: Performed By: #### 3 4529-8 #### ELIEL Desai ([id number]) [facility] ([facility]) [address] [place] [address]180 Glucose Test strip manual (B ld) [Mass/Vol]on 04-20-2024 Glucose [Mass/Vol] 94 mg/dL 74 - 99 mg/dL [facility] Interpretation and review of laboratory results Normal [facility] Glucose [Mass/Vol] 94 mg/dL Normal 74-99 [facility] Comment on above: Performed By: #### 3 4529-8 #### ELIEL Desai ([id number]) [facility] ([facility]) [address] [place] [address]43 Magnesiumon 04-20-2024 Magnesium [Mass/Vol] 1.95 mg/dL 1.60 - 2.40 mg/dL [facility] Magnesium [Mass/Vol] 1.95 mg/dL Normal 1.60-2.40 [facility] Comment on above: Performed By: #### 6 MMP #### [facility] ([facility]) ([id number]) [address] [place] [address] Magnesium [Mass/Vol]on 04-20 Interpretation and review of laboratory results Normal [facility] No Panel Informationon 04-20 [facility] Basic metabolic 2000 panelon 04-19-2024 Anion gap [Moles/Vol] 13 mmol/L 10 - 20 mmol/L [facility] Calcium [Mass/Vol] 8.3 mg/dL Low 8.6 - 10. 6 mg/dL [facility] Chloride [Moles/Vol] 109 mmol/L High 98 - 107 mmol/L [facility] CO2 [Moles/Vol] 22 mmol/L 21 - 32 mmol/L [facility] Creatinine [Mass/Vol] 0.72 mg/dL 0.50 - 1.05 mg/dL [facility] eGFR - PINF [facility] Comment on above: Calculations of daniel mated GFR are performed using the 2020 CKD-EPI Study Refit equation without the race variable for the IDMS-Traceable creatinine methods. https://jasn.asnjournals.org/content//ASN.28643970 88 Glucose [Mass/Vol] 83 mg/dL 74 - 99 mg/dL [facility] Interpretation and review of laboratory results Abnormal [facility] Potassium [Moles/Vol] 3.7 mmol/L 3.5 - 5.3 mmol/L [facility] Sodium [Moles/Vol] 140 mmol/L 136 - 145 mmol/L [facility] Urea nitrogen [Mass/Vol] 7 mg/dL 6 - 23 mg/dL [facility] Anion gap [Moles/Vol] 13 mmol/L Normal 10-20 [facility] Comment on above: Performed By: #### 6 MMP #### [facility] ([facility]AND[facility]) ([id number]) [address] [place] [address] Calcium [Mass/Vol] 8.3 mg/dL Low 8.6-10.6 [facility] Comment on above: Performed By: #### 6 MMP #### [facility] (BEAKER) ([id number]) [address] [place] [address] Chloride [Moles/Vol] 109 mmol/L High 98-107 [facility] Comment on above: Performed By: #### 6 MMP #### [facility] (BEAKER) ([id number]) [address] [place] [address] CO2 [Moles/Vol] 22 mmol/L Normal 21-32 [facility] Comment on above: Performed By: #### 6 MMP #### [facility] (BEAKER) ([id number]) [address] [place] [address] Creatinine [Mass/Vol] 0.72 mg/dL Normal 0.50-1.05 [facility] Comment on above: Performed By: #### 6 MMP #### [facility] (BEAKER) ([id number]) [address] [place] [address] GFR/1.73 sq M.predicted MDRD (S/P/Bld) [Vol rate/Area] mL/min/{1.73_m2} Normal >60 [facility] Comment on above: Result Comment: Calc ulations of estimated GFR are performed using the 2020 CKD-EPI Study Refit equation without the race variable for the IDMS-Traceable creatinine methods. https://jasn.asnjournals.org/content//ASN.82550106 88 Performed By: #### 6 MMP #### [facility] (BEAKER) ([id number]) [address] [place] [address] Glucose [Mass/Vol] 83 mg/dL Normal 74-99 [facility] Comment on above: Performed By: #### 6 MMP #### [facility] (BEAKER) ([id number]) [address] [place] [address] Potassium [Moles/Vol] 3.7 mmol/L Normal 3.5-5.3 [facility] Comment on above: Performed By: #### 6 MMP #### [facility] (BEAKER) ([id number]) [address] [place] [address] Sodium [Moles/Vol] 140 mmol/L Normal 136-145 [facility] Comment on above: Performed By: #### 6 MMP #### [facility] ([employer]) ([id number]) [address] [place] [address] Urea nitrogen [Mass/Vol] 7 mg/dL Normal 6-23 [facility] Comment on above: Performed By: #### 6 MMP #### [facility] ([employer]) ([id number]) [address] [place] [address] CBC panel Auto (Bld)on 04-19 Erythrocyte distribution width (RBC) [Ratio] 14.7 % High 11.5 - 14.5 % [facility] Hematocrit (Bld) [Volume fraction] 35.5 % Low 36.0 - 46.0 % [facility] Hemoglobin (Bld) [Mass/Vol] 10.8 g/dL Low 12.0 - 16.0 g/dL [facility] Interpretation and review of laboratory results Abnormal [facility] MCH (RBC) [Entitic mass] 25.7 pg Low 26.0 - 34.0 pg [facility] MCHC (RBC) [Mass/Vol] 30.4 g/dL Low 32.0 - 36.0 g/dL [facility] MCV (RBC) [Entitic vol] 84 fL 80 - 100 fL [facility] Nucleated RBC/100 WBC (Bld) [Ratio] 0 % [facility] Platelets (Bld) [#/Vol] 283 10*3/uL [facility] RBC (Bld) [#/Vol] 4.21 10*6/uL [facility] WBC (Bld) [#/Vol] 10.7 10*3/uL [facility] Erythrocyte distribution width (RBC) [Ratio] 14.7 % High 11.5-14.5 [facility] Comment on above: Performed By: #### 6 MMP #### [facility] ([employer]) ([id number]) [address] [place] [address] Hematocrit (Bld) [Volume fraction] 35.5 % Low 36.0-46.0 [facility] Comment on above: Performed By: #### 6 MMP #### [facility] (BEAKER) ([id number]) [address] [place] [address] Hemoglobin (Bld) [Mass/Vol] 10.8 g/dL Low 12.0-16.0 [facility] Comment on above: Performed By: #### 6 MMP #### [facility] (BEAKER) ([id number]) [address] [place] [address] MCH (RBC) [Entitic mass] 25.7 pg Low 26.0-34.0 [facility] Comment on above: Performed By: #### 6 MMP #### [facility] (BEAKER) ([id number]) [address] [place] [address] MCHC (RBC) [Mass/Vol] 30.4 g/dL Low 32.0-36.0 [facility] Comment on above: Performed By: #### 6 MMP #### [facility] (BEAKER) ([id number]) [address] [place] [address] MCV (RBC) [Entitic vol] 84 fL Normal 80-100 [facility] Comment on above: Performed By: #### 6 MMP #### [facility] (BEAKER) ([id number]) [address] [place] [address] Nucleated RBC/100 WBC (Bld) [Ratio] 0.0 /100 WBCs Normal 0.0-0.0 [facility] Comment on above: Performed By: #### 6 MMP #### [facility] (BEAKER) ([id number]) [address] [place] [address] Platelets (Bld) [#/Vol] 283 x10*3/uL Normal 150-450 [facility] Comment on above: Performed By: #### 6 MMP #### [facility] (BEAKER) ([id number]) [address] [place] [address] RBC (Bld) [#/Vol] 4.21 x10*6/uL Normal 4.00-5.[address] [facility] Comment on above: Performed By: #### 6 MMP #### [facility] ([employer]) ([id number]) [address] [place] [address] WBC (Bld) [#/Vol] 10.7 x10*3/uL Normal 4.4-11.[address] [facility] Comment on above: Performed By: #### 6 MMP #### [facility] ([employer]) ([id number]) [address] [place] [address] Glucose Test strip manual (B ld) [Mass/Vol]on 04-19-2024 Glucose [Mass/Vol] 91 mg/dL 74 - 99 mg/dL [facility] Interpretation and review of laboratory results Normal [facility] Glucose [Mass/Vol] 91 mg/dL Normal 74-99 [facility] Comment on above: Performed By: #### 6 MMP #### [facility] ([employer]) ([id number]) [address] [place] [address] Glucose [Mass/Vol] 83 mg/dL 74 - 99 mg/dL [facility] Interpretation and review of laboratory results Normal [facility] Glucose [Mass/Vol] 83 mg/dL Normal 74-99 [facility] Comment on above: Performed By: #### 6 MMP #### [facility] ([employer] [employer]) ([id number]) [address] [place] [address] Magnesiumon 04-19-2024 Magnesium [Mass/Vol] 1.89 mg/dL 1.60 - 2.40 mg/dL [facility] Magnesium [Mass/Vol] 1.89 mg/dL Normal 1.60-2.40 [facility] Comment on above: Performed By: #### 6 MMP #### [facility] ([employer]) ([id number]) [address] [place] [address] Magnesium [Mass/Vol]on 04-19 Interpretation and review of laboratory results Normal [facility] No Panel Informationon 04-19 [facility] Basic metabolic 2000 panelon 04-18-2024 Anion gap [Moles/Vol] 14 mmol/L 10 - 20 mmol/L [facility] Calcium [Mass/Vol] 8.5 mg/dL Low 8.6 - 10. 6 mg/dL [facility] Chloride [Moles/Vol] 109 mmol/L High 98 - 107 mmol/L [facility] CO2 [Moles/Vol] 23 mmol/L 21 - 32 mmol/L [facility] Creatinine [Mass/Vol] 0.85 mg/dL 0.50 - 1.05 mg/dL [facility] eGFR - PINF [facility] Comment on above: Calculations of daniel mated GFR are performed using the 2020 CKD-EPI Study Refit equation without the race variable for the IDMS-Traceable creatinine methods. https://jasn.asnjournals.org/content//ASN.88450019 88 Glucose [Mass/Vol] 65 mg/dL Low 74 - 99 mg/dL [facility] Interpretation and review of laboratory results Abnormal [facility] Potassium [Moles/Vol] 3.8 mmol/L 3.5 - 5.3 mmol/L [facility] Sodium [Moles/Vol] 142 mmol/L 136 - 145 mmol/L [facility] Urea nitrogen [Mass/Vol] 10 mg/dL 6 - 23 mg/dL [facility] Anion gap [Moles/Vol] 14 mmol/L Normal 10-20 [facility] Comment on above: Performed By: #### 3 024-7 #### CORDELL KOVACS ([id number]) [facility] ([facility]) [address] [place] [address] Calcium [Mass/Vol] 8.5 mg/dL Low 8.6-10.6 [facility] Comment on above: Performed By: #### 3 024-7 #### CORDELL KOVACS ([id number]) [facility] ([facility]) [address] [place] [address] Chloride [Moles/Vol] 109 mmol/L High 98-107 [facility] Comment on above: Performed By: #### 3 024-7 #### CORDELL KOVACS ([id number]) [facility] ([facility]) [address] [place] [address] CO2 [Moles/Vol] 23 mmol/L Normal 21-32 [facility] Comment on above: Performed By: #### 3 024-7 #### CORDELL KOVACS ([id number]) [facility] ([facility]) [address] [place] [address] Creatinine [Mass/Vol] 0.85 mg/dL Normal 0.50-1.05 [facility] Comment on above: Performed By: #### 3 024-7 #### CORDELL KOVACS ([id number]) [facility] ([facility]) [address] [place] [address]251 GFR/1.73 sq M.predicted MDRD (S/P/Bld) [Vol rate/Area] mL/min/{1.73_m2} Normal >60 [facility] Comment on above: Result Comment: Calc ulations of estimated GFR are performed using the 2020 CKD-EPI Study Refit equation without the race variable for the IDMS-Traceable creatinine methods. https://jasn.asnjournals.org/content//ASN.43141892 88 Performed By: #### 3 024-7 #### CORDELL KOVACS ([id number]) [facility] ([facility]) [address] [place] [address] Glucose [Mass/Vol] 65 mg/dL Low 74-99 [facility] Comment on above: Performed By: #### 3 024-7 #### CORDELL KOVACS ([id number]) [facility] ([facility]) [address] [place] [address] Potassium [Moles/Vol] 3.8 mmol/L Normal 3.5-5.3 [facility] Comment on above: Performed By: #### 3 024-7 #### CORDELL KOVACS ([id number]) [facility] ([facility]) [address] [place] [address] Sodium [Moles/Vol] 142 mmol/L Normal 136-145 [facility] Comment on above: Performed By: #### 3 024-7 #### CORDELL KOVACS ([id number]) [facility] ([facility]) [address] [place] [address] Urea nitrogen [Mass/Vol] 10 mg/dL Normal 6-23 [facility] Comment on above: Performed By: #### 3 024-7 #### CORDELL DO RIO TAWNY ([id number]) [facility] ([facility]) [address] [place] [address] CBC panel Auto (Bld)on 04-18 Erythrocyte distribution width (RBC) [Ratio] 14.7 % High 11.5 - 14.5 % [facility] Hematocrit (Bld) [Volume fraction] 34.7 % Low 36.0 - 46.0 % [facility] Hemoglobin (Bld) [Mass/Vol] 10.6 g/dL Low 12.0 - 16.0 g/dL [facility] Interpretation and review of laboratory results Abnormal [facility] MCH (RBC) [Entitic mass] 26.1 pg 26.0 - 34.0 pg [facility] MCHC (RBC) [Mass/Vol] 30.5 g/dL Low 32.0 - 36.0 g/dL [facility] MCV (RBC) [Entitic vol] 86 fL 80 - 100 fL [facility] Nucleated RBC/100 WBC (Bld) [Ratio] 0 % [facility] Platelets (Bld) [#/Vol] 305 10*3/uL [facility] RBC (Bld) [#/Vol] 4.06 10*6/uL [facility] WBC (Bld) [#/Vol] 11.1 10*3/uL [facility] Erythrocyte distribution width (RBC) [Ratio] 14.7 % High 11.5-14.5 [facility] Comment on above: Performed By: #### 3 024-7 #### CORDELL KOVACS ([id number]) [facility] ([facility]) [address] [place] [address] Hematocrit (Bld) [Volume fraction] 34.7 % Low 36.0-46.0 [facility] Comment on above: Performed By: #### 3 024-7 #### CORDELL KOVACS ([id number]) [facility] ([facility]) [address] [place] [address] Hemoglobin (Bld) [Mass/Vol] 10.6 g/dL Low 12.0-16.0 [facility] Comment on above: Performed By: #### 3 024-7 #### CORDELL KOVACS ([id number]) [facility] ([facility]) [address] [place] [address] MCH (RBC) [Entitic mass] 26.1 pg Normal 26.0-34.0 [facility] Comment on above: Performed By: #### 3 024-7 #### CORDELL KOVACS ([id number]) [facility] (C) [address] [place] [address]17 MCHC (RBC) [Mass/Vol] 30.5 g/dL Low 32.0-36.0 [facility] Comment on above: Performed By: #### 3 024-7 #### CORDELL KOVACS ([id number]) [facility] (C) [address] [place] [address] 73428 MCV (RBC) [Entitic vol] 86 fL Normal 80-100 [facility] Comment on above: Performed By: #### 3 024-7 #### CORDELL KOVACS ([id number]) [facility] ([facility]) [address] [place] [address] 25516 Nucleated RBC/100 WBC (Bld) [Ratio] 0.0 /100 WBCs Normal 0.0-0.0 [facility] Comment on above: Performed By: #### 3 024-7 #### CORDELL KOVACS ([id number]) [facility] ([facility]) [address] [place] [address] 73786 Platelets (Bld) [#/Vol] 305 x10*3/uL Normal 150-450 [facility] Comment on above: Performed By: #### 3 024-7 #### CORDELL KOVACS ([id number]) [facility] (EM) [address] [place] [address] 04647 RBC (Bld) [#/Vol] 4.06 x10*6/uL Normal 4.00-5.[address] [facility] Comment on above: Performed By: #### 3 024-7 #### RUBIIBJAIDEN KOVACS ([id number]) [facility] ([facility]) [address] [place] [address] 58054 WBC (Bld) [#/Vol] 11.1 x10*3/uL Normal 4.4-11.[address] [facility] Comment on above: Performed By: #### 3 024-7 #### CORDELL DO RIO TAWNY ([id number]) [facility] (EM) [address] [place] [address]95[address] FL UPPER GI SINGLE CONTRAST W SMALL BOWEL FOLLOW THROUGHon 04-18-2024 FL UPPER GI SINGLE CONTRAST W SMALL BOWEL FOLLOW THROUGH Interpreted By: Andres Lim and Gupta Jayesh STUDY: FL UPPER GI SINGLE CONTRAST W SMALL BOWEL FOLLOW THROUGH; 04/18/2024 2:48 pm INDICATION: Signs/Symptoms:c/f SBO. COMPARISON: None. ACCESSION NUMBER(S): [id number] ORDERING CLINICIAN: VITO CHRISTIANSON TECHNIQUE: An initial radiograph of the abdomen and pelvis was obtained. This was followed by injection through the NG tube approximately 250 mL of contrast Gastrografin. Delayed static images of the abdomen in the posteroanterior projection were obtained at 15, 30, 45, and 60 minute intervals until contrast was observed to reach the colon. Total fluoroscopy time was 0.8 minutes. FINDINGS: Initial window cutter image demonstrates no gross abnormalities The stomach was well visualized and unremarkable in appearance. The Gastrografin passed readily through the pylorus into a normal duodenal bulb and C-loop. The duodenal-jejunal junction appears normally positioned and grossly unremarkable. The small bowel is of normal caliber with no mucosal thickening appreciated. A normal feathery appearance is observed to the jejunum. The normal smooth appearance of the ileum is observed. There is no evidence for annular constricting lesions, large intraluminal mass lesion, or mucosal ulceration. Small bowel loops are observed to separate normally without evidence of mass clumping. Transit time of contrast to the ascending colon was identified by 60 minutes minutes. IMPRESSION: 1. Unremarkable small-bowel follow-through. No evidence of obstruction. I personally reviewed the images/study and I agree with the findings as stated by Godwin Acevedo MD. This study was interpreted at [place], [place]. MACRO: None Signed by: Andres Lim 04/18/2024 3:11 PM Dictation workstation: [id number] Normal [facility] Glucose Test strip manual (B ld) [Mass/Vol]on 04-18-2024 Glucose [Mass/Vol] 71 mg/dL Low 74 - 99 mg/dL [facility] Interpretation and review of laboratory results Abnormal [facility] Glucose [Mass/Vol] 71 mg/dL Low 74-99 [facility] Comment on above: Performed By: #### 6 MMP #### [facility] [employer]) ([id number]) [address] [place] [address] Glucose [Mass/Vol] 71 mg/dL Low 74 - 99 mg/dL [facility] Interpretation and review of laboratory results Abnormal [facility] Glucose [Mass/Vol] 71 mg/dL Low 74-99 [facility] Comment on above: Performed By: #### 6 MMP #### [facility] ([employer]) ([id number]) [address] [place] [address] Glucose [Mass/Vol] 72 mg/dL Low 74 - 99 mg/dL [facility] Interpretation and review of laboratory results Abnormal [facility] Glucose [Mass/Vol] 72 mg/dL Low 74-99 [facility] Comment on above: Performed By: #### 3 024-7 #### CORDELL KOVACS ([id number]) [facility] (EM) [address] [place] [address] Magnesiumon 04-18-2024 Magnesium [Mass/Vol] 2.02 mg/dL 1.60 - 2.40 mg/dL [facility] Magnesium [Mass/Vol] 2.02 mg/dL Normal 1.60-2.40 [facility] Comment on above: Performed By: #### 3 024-7 #### CORDELL KOVACS ([id number]) [facility] ([facility]) [address] [place] [address] Magnesium [Mass/Vol]on 04-18 Interpretation and review of laboratory results Normal [facility] No Panel Informationon 04-18 [facility] RF Upper gastrointestinal tr act and Small bowel Single view W contrast Lyn 04-18-2024 1. Unremarkable smal l-bowel follow-through. No evidence of obstruction. I personally reviewed the images/study and I agree with the findings as stated by Godwin Acevedo MD. This study was interpreted at [place], [place]. MACRO: None Signed by: Andres Lim 04/18/2024 3:11 PM Dictation workstation: [id number] [facility] Interpreted By: Andres Lim, Cali Connelly STUDY: FL UPPER GI SINGLE CONTRAST W SMALL BOWEL FOLLOW THROUGH; 04/18/2024 2:48 pm INDICATION: Signs/Symptoms:c/f SBO. COMPARISON: None. ACCESSION NUMBER(S): [id number] ORDERING CLINICIAN: VITO CHRISTIANSON TECHNIQUE: An initial radiograph of the abdomen and pelvis was obtained. This was followed by injection through the NG tube approximately 250 mL of contrast Gastrografin. Delayed static images of the abdomen in the posteroanterior projection were obtained at 15, 30, 45, and 60 minute intervals until contrast was observed to reach the colon. Total fluoroscopy time was 0.8 minutes. FINDINGS: Initial window cutter image demonstrates no gross abnormalities The stomach was well visualized and unremarkable in appearance. The Gastrografin passed readily through the pylorus into a normal duodenal bulb and C-loop. The duodenal-jejunal junction appears normally positioned and grossly unremarkable. The small bowel is of normal caliber with no mucosal thickening appreciated. A normal feathery appearance is observed to the jejunum. The normal smooth appearance of the ileum is observed. There is no evidence for annular constricting lesions, large intraluminal mass lesion, or mucosal ulceration. Small bowel loops are observed to separate normally without evidence of mass clumping. Transit time of contrast to the ascending colon was identified by 60 minutes minutes. [facility] Andres Lim MD PhD - 04/18/2024 Interpreted By: Andres Lim and Gupta Jayesh STUDY: FL UPPER GI SINGLE CONTRAST W SMALL BOWEL FOLLOW THROUGH; 04/18/2024 2:48 pm INDICATION: Signs/Symptoms:c/f SBO. COMPARISON: None. ACCESSION NUMBER(S): [id number] ORDERING CLINICIAN: VITO CHRISTIANSON TECHNIQUE: An initial radiograph of the abdomen and pelvis was obtained. This was followed by injection through the NG tube approximately 250 mL of contrast Gastrografin. Delayed static images of the abdomen in the posteroanterior projection were obtained at 15, 30, 45, and 60 minute intervals until contrast was observed to reach the colon. Total fluoroscopy time was 0.8 minutes. FINDINGS: Initial window cutter image demonstrates no gross abnormalities The stomach was well visualized and unremarkable in appearance. The Gastrografin passed readily through the pylorus into a normal duodenal bulb and C-loop. The duodenal-jejunal junction appears normally positioned and grossly unremarkable. The small bowel is of normal caliber with no mucosal thickening appreciated. A normal feathery appearance is observed to the jejunum. The normal smooth appearance of the ileum is observed. There is no evidence for annular constricting lesions, large intraluminal mass lesion, or mucosal ulceration. Small bowel loops are observed to separate normally without evidence of mass clumping. Transit time of contrast to the ascending colon was identified by 60 minutes minutes. IMPRESSION: 1. Unremarkable small-bowel follow-through. No evidence of obstruction. I personally reviewed the images/study and I agree with the findings as stated by Godwin Acevedo MD. This study was interpreted at [facility], [place], [place]. MACRO: None Signed by: Andres Lim 04/18/2024 3:11 PM Dictation workstation: [id number] [facility] Work Phone: Radiology Study observation (narrative) [facility] Work Phone: RF Upper gastrointestinal tr act and Small bowel Single view W contrast POOrdered By: Andres Lim on 04-18-2024 [facility] Work Phone: Basic metabolic 2000 panelon 04-17-2024 Anion gap [Moles/Vol] 13 mmol/L 10 - 20 mmol/L [facility] Calcium [Mass/Vol] 8.7 mg/dL 8.6 - 10. 6 mg/dL [facility] Chloride [Moles/Vol] 106 mmol/L 98 - 107 mmol/L [facility] CO2 [Moles/Vol] 26 mmol/L 21 - 32 mmol/L [facility] Creatinine [Mass/Vol] 0.91 mg/dL 0.50 - 1.05 mg/dL [facility] GFR/1.73 sq M.predicted among non-blacks MDRD (S/P/Bld) [Vol rate/Area] 86 mL/min/{1.73_m2} - PINF [facility] Comment on above: Calculations of daniel mated GFR are performed using the 2020 CKD-EPI Study Refit equation without the race variable for the IDMS-Traceable creatinine methods. https://jasn.asnjournals.org/content//ASN.19107278 88 Glucose [Mass/Vol] 103 mg/dL High 74 - 99 mg/dL [facility] Interpretation and review of laboratory results Abnormal [facility] Potassium [Moles/Vol] 3.3 mmol/L Low 3.5 - 5.3 mmol/L [facility] Sodium [Moles/Vol] 142 mmol/L 136 - 145 mmol/L [facility] Urea nitrogen [Mass/Vol] 12 mg/dL 6 - 23 mg/dL [facility] Anion gap [Moles/Vol] 13 mmol/L Normal 10-20 [facility] Comment on above: Performed By: #### 3 024-7 #### CORDELL KOVACS ([id number]) [facility] ([facility]) [address] [place] [address] 76401 Calcium [Mass/Vol] 8.7 mg/dL Normal 8.6-10.6 [facility] Comment on above: Performed By: #### 3 024-7 #### CORDELL KOVACS ([id number]) [facility] ([facility]) [address] [place] [address] 54028 Chloride [Moles/Vol] 106 mmol/L Normal 98-107 [facility] Comment on above: Performed By: #### 3 024-7 #### CORDELL KOVACS ([id number]) [facility] ([facility]) [address] [place] [address] 09556 CO2 [Moles/Vol] 26 mmol/L Normal 21-32 [facility] Comment on above: Performed By: #### 3 024-7 #### CORDELL KOVACS ([id number]) [facility] ([facility]) [address] [place] [address] 31880 Creatinine [Mass/Vol] 0.91 mg/dL Normal 0.50-1.05 [facility] Comment on above: Performed By: #### 3 024-7 #### CORDELL KOVACS ([id number]) [facility] ([facility]) [address] [place] [address] 77858 Glomerular filtration rate/1.73 sq M.predicted 86 mL/min/1.73m*2 Normal >60 [facility] Comment on above: Result Comment: Calc ulations of estimated GFR are performed using the 2020 CKD-EPI Study Refit equation without the race variable for the IDMS-Traceable creatinine methods. https://jasn.asnjournals.org/content//ASN.60198756 88 Performed By: #### 3 024-7 #### CORDELL KOVACS ([id number]) [facility] ([facility]) [address] [place] [address] 82532 Glucose [Mass/Vol] 103 mg/dL High 74-99 [facility] Comment on above: Performed By: #### 3 024-7 #### CORDELL KOVACS ([id number]) [facility] ([facility]) [address] [place] [address] 61278 Potassium [Moles/Vol] 3.3 mmol/L Low 3.5-5.3 [facility] Comment on above: Performed By: #### 3 024-7 #### CORDELL KOVACS ([id number]) [facility] ([facility]) [address] [place] [address] 68702 Sodium [Moles/Vol] 142 mmol/L Normal 136-145 [facility] Comment on above: Performed By: #### 3 024-7 #### CORDELL KOVACS ([id number]) [facility] ([facility]) [address] [place] [address] 57095 Urea nitrogen [Mass/Vol] 12 mg/dL Normal 6-23 [facility] Comment on above: Performed By: #### 3 024-7 #### CORDELL KOVACS ([id number]) [facility] ([facility]) [address] [place] [address] 68401 CBC panel Auto (Bld)on 04-17 Erythrocyte distribution width (RBC) [Ratio] 14.7 % High 11.5 - 14.5 % [facility] Hematocrit (Bld) [Volume fraction] 38.3 % 36.0 - 46.0 % [facility] Hemoglobin (Bld) [Mass/Vol] 11.8 g/dL Low 12.0 - 16.0 g/dL [facility] Interpretation and review of laboratory results Abnormal [facility] MCH (RBC) [Entitic mass] 25.8 pg Low 26.0 - 34.0 pg [facility] MCHC (RBC) [Mass/Vol] 30.8 g/dL Low 32.0 - 36.0 g/dL [facility] MCV (RBC) [Entitic vol] 84 fL 80 - 100 fL [facility] Nucleated RBC/100 WBC (Bld) [Ratio] 0 % [facility] Platelets (Bld) [#/Vol] 335 10*3/uL [facility] RBC (Bld) [#/Vol] 4.58 10*6/uL [facility] WBC (Bld) [#/Vol] 12.7 10*3/uL [facility] Erythrocyte distribution width (RBC) [Ratio] 14.7 % High 11.5-14.5 [facility] Comment on above: Performed By: #### 3 024-7 #### CORDELL KOVACS ([id number]) [facility] ([facility]) [address] [place] [address] 71414 Hematocrit (Bld) [Volume fraction] 38.3 % Normal 36.0-46.0 [facility] Comment on above: Performed By: #### 3 024-7 #### CORDELL KOVACS ([id number]) [facility] (C) [address] [place] [address] 70162 Hemoglobin (Bld) [Mass/Vol] 11.8 g/dL Low 12.0-16.0 [facility] Comment on above: Performed By: #### 3 024-7 #### CORDELL KOVACS ([id number]) [facility] ([facility]) [address] [place] [address] 84783 MCH (RBC) [Entitic mass] 25.8 pg Low 26.0-34.0 [facility] Comment on above: Performed By: #### 3 024-7 #### CORDELL KOVACS ([id number]) [facility] ([facility]) [address] [place] [address] 33418 MCHC (RBC) [Mass/Vol] 30.8 g/dL Low 32.0-36.0 [facility] Comment on above: Performed By: #### 3 024-7 #### CORDELL KOVACS ([id number]) [facility] ([facility]) [address] [place] [address] 03582 MCV (RBC) [Entitic vol] 84 fL Normal 80-100 [facility] Comment on above: Performed By: #### 3 024-7 #### CORDELL KOVACS ([id number]) [facility] ([facility]) [address] [place] [address] 28239 Nucleated RBC/100 WBC (Bld) [Ratio] 0.0 /100 WBCs Normal 0.0-0.0 [facility] Comment on above: Performed By: #### 3 024-7 #### CORDELL KOVACS ([id number]) [facility] ([facility]) [address] [place] [address] 57264 Platelets (Bld) [#/Vol] 335 x10*3/uL Normal 150-450 [facility] Comment on above: Performed By: #### 3 024-7 #### CORDELL KOVACS ([id number]) [facility] ([facility]) [address] [place] [address] 88146 RBC (Bld) [#/Vol] 4.58 x10*6/uL Normal 4.00-5.[address] [facility] Comment on above: Performed By: #### 3 024-7 #### CORDELL KOVACS ([id number]) [facility] ([facility]) [address] [place] [address] 45472 WBC (Bld) [#/Vol] 12.7 x10*3/uL High 4.4-11.[address] [facility] Comment on above: Performed By: #### 3 024-7 #### CORDELL KOVACS ([id number]) [facility] (C) [address] [place] [address] 32859 Glucose Test strip manual (B ld) [Mass/Vol]on 04-17-2024 Glucose [Mass/Vol] 106 mg/dL High 74 - 99 mg/dL [facility] Interpretation and review of laboratory results Abnormal [facility] Glucose [Mass/Vol] 106 mg/dL High 74-99 [facility] Comment on above: Performed By: #### 3 024-7 #### CORDELL KOVACS ([id number]) [facility] ([facility]) [address] [place] [address] 16998 Glucose [Mass/Vol] 110 mg/dL High 74 - 99 mg/dL [facility] Interpretation and review of laboratory results Abnormal [facility] Glucose [Mass/Vol] 110 mg/dL High 74-99 [facility] Comment on above: Performed By: #### 3 024-7 #### CORDELL KOVACS ([id number]) [facility] ([facility]) [address] [place] [address] 04863 Magnesiumon 04-17-2024 Magnesium [Mass/Vol] 2.19 mg/dL 1.60 - 2.40 mg/dL [facility] Magnesium [Mass/Vol] 2.19 mg/dL Normal 1.60-2.40 [facility] Comment on above: Performed By: #### 3 024-7 #### CORDELL KOVACS ([id number]) [facility] ([facility]) [address] [place] [address] 41739 Magnesium [Mass/Vol]on 04-17 Interpretation and review of laboratory results Normal [facility] No Panel Informationon 04-17 [facility] Blood type and Indirect anti body screen panel (Bld)on 04-16-2024 ABO group Nom (Bld) A [facility] Blood group antibody screen Ql Negative [facility] D Ag Ql (Bld) Positive [facility] ABO group Nom (Bld) A Normal [facility] Comment on above: Performed By: #### 3 4532-2 #### ELIEL Desai ([id number]) [facility] ([facility]) [address] [place] [address] Blood group antibody screen Ql Negative Normal [facility] Center Comment on above: Performed By: #### 3 4532-2 #### ELIEL Desai ([id number]) [facility] ([facility]) [address] [place] [address] D Ag Ql (Bld) Positive Normal [facility] Comment on above: Performed By: #### 3 4532-2 #### ELIEL Desai ([id number]) [facility] ([facility]) [address] [place] [address] CBC W Auto Differential pane l (Bld)on 04-16-2024 Basophils (Bld) [#/Vol] 0.01 10*3/uL [facility] Basophils/100 WBC (Bld) 0.1 % 0.0 - 2.0 % [facility] Eosinophils (Bld) [#/Vol] 0.01 10*3/uL [facility] Eosinophils/100 WBC (Bld) 0.1 % 0.0 - 6.0 % [facility] Erythrocyte distribution width (RBC) [Ratio] 14.2 % 11.5 - 14.5 % [facility] Hematocrit (Bld) [Volume fraction] 38.5 % 36.0 - 46.0 % [facility] Hemoglobin (Bld) [Mass/Vol] 13 g/dL 12.0 - 16.0 g/dL [facility] Immature granulocytes (Bld) [#/Vol] 0.03 10*3/uL [facility] Immature granulocytes/100 WBC (Bld) 0.2 % 0.0 - 0.9 % [facility] Comment on above: Immature Granulocyte Count (IG) includes promyelocytes, myelocytes and metamyelocytes but does not include bands. Percent differential counts (%) should be interpreted in the context of the absolute cell counts (cells/UL). Interpretation and review of laboratory results Abnormal [facility] Lymphocytes (Bld) [#/Vol] 1.02 10*3/uL Low [facility] Lymphocytes/100 WBC (Bld) 8 % 13.0 - 44.0 % [facility] MCH (RBC) [Entitic mass] 26.4 pg 26.0 - 34.0 pg [facility] MCHC (RBC) [Mass/Vol] 33.8 g/dL 32.0 - 36.0 g/dL [facility] MCV (RBC) [Entitic vol] 78 fL Low 80 - 100 fL [facility] Monocytes (Bld) [#/Vol] 0.03 10*3/uL Low [facility] Monocytes/100 WBC (Bld) 0.2 % 2.0 - 10.0 % [facility] Neutrophils (Bld) [#/Vol] 11.7 10*3/uL [facility] Comment on above: Percent differential counts (%) should be interpreted in the context of the absolute cell counts (cells/uL). Neutrophils/100 WBC (Bld) 91.4 % 40.0 - 80.0 % [facility] Nucleated RBC/100 WBC (Bld) [Ratio] 0 % [facility] Platelets (Bld) [#/Vol] 337 10*3/uL [facility] RBC (Bld) [#/Vol] 4.92 10*6/uL [facility] WBC (Bld) [#/Vol] 12.8 10*3/uL [facility] Basophils (Bld) [#/Vol] 0.01 x10*3/uL Normal 0.00-0.10 [facility] Comment on above: Performed By: #### 5 7021-8 #### ELIEL Desai ([id number]) [facility] ([facility]) [address] [place] [address] 87670 Basophils/100 WBC (Bld) 0.1 % Normal 0.0-2.0 [facility] Comment on above: Performed By: #### 5 7021-8 #### ELIEL Desai ([id number]) [facility] ([facility]) [address] [place] [address] 74715 Eosinophils (Bld) [#/Vol] 0.01 x10*3/uL Normal 0.00-0.70 [facility] Comment on above: Performed By: #### 5 7021-8 #### ELIEL Desai ([id number]) [facility] ([facility]) [address] [place] [address] 96009 Eosinophils/100 WBC (Bld) 0.1 % Normal 0.0-6.0 [facility] Comment on above: Performed By: #### 5 7021-8 #### ELIEL Desai ([id number]) [facility] ([facility]) [address] [place] [address] 41221 Erythrocyte distribution width (RBC) [Ratio] 14.2 % Normal 11.5-14.5 [facility] Comment on above: Performed By: #### 5 7021-8 #### ELIEL Desai ([id number]) [facility] ([facility]) [address] [place] [address] 97162 Hematocrit (Bld) [Volume fraction] 38.5 % Normal 36.0-46.0 [facility] Comment on above: Performed By: #### 5 7021-8 #### ELIEL Desai ([id number]) [facility] ([facility]) [address] [place] [address] 50240 Hemoglobin (Bld) [Mass/Vol] 13.0 g/dL Normal 12.0-16.0 [facility] Comment on above: Performed By: #### 5 7021-8 #### ELIEL Desai ([id number]) [facility] ([facility]) [address] [place] [address] 84979 Immature granulocytes (Bld) [#/Vol] 0.03 x10*3/uL Normal 0.00-0.70 [facility] Comment on above: Performed By: #### 5 7021-8 #### ELIEL Desai ([id number]) [facility] ([facility]) [address] [place] [address] 60331 Immature granulocytes/100 WBC (Bld) 0.2 % Normal 0.0-0.9 [facility] Comment on above: Result Comment: Zulay ture Granulocyte Count (IG) includes promyelocytes, myelocytes and metamyelocytes but does not include bands. Percent differential counts (%) should be interpreted in the context of the absolute cell counts (cells/UL). Performed By: #### 5 7021-8 #### ELIEL Desai ([id number]) [facility] ([facility]) [address] [place] [address] 87635 Lymphocytes (Bld) [#/Vol] 1.02 x10*3/uL Low 1.20-4.80 [facility] Comment on above: Performed By: #### 5 7021-8 #### ELIEL Desai ([id number]) [facility] ([facility]) [address] [place] [address] 07689 Lymphocytes/100 WBC (Bld) 8.0 % Normal 13.0-44.0 [facility] Comment on above: Performed By: #### 5 7021-8 #### ELIEL Desai ([id number]) [facility] ([facility]) [address] [place] [address] 96993 MCH (RBC) [Entitic mass] 26.4 pg Normal 26.0-34.0 [facility] Comment on above: Performed By: #### 5 7021-8 #### ELIEL Desai ([id number]) [facility] ([facility]) [address] [place] [address] 35467 MCHC (RBC) [Mass/Vol] 33.8 g/dL Normal 32.0-36.0 [facility] Comment on above: Performed By: #### 5 7021-8 #### ELIEL Desai ([id number]) [facility] ([facility]) [address] [place] [address] 08327 MCV (RBC) [Entitic vol] 78 fL Low 80-100 [facility] Comment on above: Performed By: #### 5 7021-8 #### ELIEL Desai ([id number]) [facility] ([facility]) [address] [place] [address] 94066 Monocytes (Bld) [#/Vol] 0.03 x10*3/uL Low 0.10-1.00 [facility] Comment on above: Performed By: #### 5 7021-8 #### ELIEL Desai ([id number]) [facility] ([facility]) [address] [place] [address] 49296 Monocytes/100 WBC (Bld) 0.2 % Normal 2.0-10.0 [facility] Comment on above: Performed By: #### 5 7021-8 #### ELIEL Desai ([id number]) [facility] ([facility]) [address] [place] [address] 39234 Neutrophils (Bld) [#/Vol] 11.70 x10*3/uL High 1.20-7.70 [facility] Comment on above: Result Comment: Perc ent differential counts (%) should be interpreted in the context of the absolute cell counts (cells/uL). Performed By: #### 5 7021-8 #### ELIEL Desai ([id number]) [facility] ([facility]) [address] [place] [address] 98328 Neutrophils/100 WBC (Bld) 91.4 % Normal 40.0-80.0 [facility] Comment on above: Performed By: #### 5 7021-8 #### ELIEL Desai ([id number]) [facility] ([facility]) [address] [place] [address] 05897 Nucleated RBC/100 WBC (Bld) [Ratio] 0.0 /100 WBCs Normal 0.0-0.0 [facility] Comment on above: Performed By: #### 5 7021-8 #### ELIEL Desai ([id number]) [facility] ([facility]) [address] [place] [address] 25312 Platelets (Bld) [#/Vol] 337 x10*3/uL Normal 150-450 [facility] Comment on above: Performed By: #### 5 7021-8 #### ELIEL Desai ([id number]) [facility] ([facility]) [address] [place] [address] 37503 RBC (Bld) [#/Vol] 4.92 x10*6/uL Normal 4.00-5.[address] [facility] Comment on above: Performed By: #### 5 7021-8 #### ELIEL Desai ([id number]) [facility] ([facility]) [address] [place] [address] 54830 WBC (Bld) [#/Vol] 12.8 x10*3/uL High 4.4-11.[address] [facility] Comment on above: Performed By: #### 5 7021-8 #### ELIEL Desai ([id number]) [facility] ([facility]) [address] [place] [address] Comprehensive metabolic 2000 panelon 04-16-2024 Albumin BCP dye [Mass/Vol] 4.1 g/dL 3.4 - 5.0 g/dL [facility] ALP [Catalytic activity/Vol] 54 U/L 33 - 110 U/L [facility] ALT With P-5'-P [Catalytic activity/Vol] 9 U/L 7 - 45 U/L [facility] Comment on above: Patients treated wit h Sulfasalazine may generate falsely decreased results for ALT. Anion gap [Moles/Vol] 16 mmol/L 10 - 20 mmol/L [facility] AST With P-5'-P [Catalytic activity/Vol] 14 U/L 9 - 39 U/L [facility] Bilirubin [Mass/Vol] 0.4 mg/dL 0.0 - 1.2 mg/dL [facility] Calcium [Mass/Vol] 9 mg/dL 8.6 - 10. 6 mg/dL [facility] Chloride [Moles/Vol] 107 mmol/L 98 - 107 mmol/L [facility] CO2 [Moles/Vol] 20 mmol/L Low 21 - 32 mmol/L [facility] Creatinine [Mass/Vol] 0.78 mg/dL 0.50 - 1.05 mg/dL [facility] eGFR - PINF [facility] Comment on above: Calculations of daniel mated GFR are performed using the 2020 CKD-EPI Study Refit equation without the race variable for the IDMS-Traceable creatinine methods. https://jasn.asnjournals.org/content//ASN.32617846 88 Glucose [Mass/Vol] 138 mg/dL High 74 - 99 mg/dL [facility] Interpretation and review of laboratory results Abnormal [facility] Potassium [Moles/Vol] 3.8 mmol/L 3.5 - 5.3 mmol/L [facility] Protein [Mass/Vol] 8.3 g/dL High 6.4 - 8.2 g/dL [facility] Sodium [Moles/Vol] 139 mmol/L 136 - 145 mmol/L [facility] Urea nitrogen [Mass/Vol] 10 mg/dL 6 - 23 mg/dL [facility] Albumin BCP dye [Mass/Vol] 4.1 g/dL Normal 3.4-5.0 [facility] Comment on above: Performed By: #### 2 4323-8 #### ELIEL Desai ([id number]) [facility] ([facility]) [address] [place] [address] 30910 ALP [Catalytic activity/Vol] 54 U/L Normal 33-110 [facility] Comment on above: Performed By: #### 2 4323-8 #### ELIEL Desai ([id number]) [facility] ([facility]) [address] [place] [address] 01822 ALT With P-5'-P [Catalytic activity/Vol] 9 U/L Normal 7-45 [facility] Comment on above: Result Comment: Sridevi ents treated with Sulfasalazine may generate falsely decreased results for ALT. Performed By: #### 2 4323-8 #### ELIEL Desai ([id number]) [facility] ([facility]) [address] [place] [address] 36518 Anion gap [Moles/Vol] 16 mmol/L Normal 10-20 [facility] Comment on above: Performed By: #### 2 4323-8 #### ELIEL Desai ([id number]) [facility] ([facility]) [address] [place] [address] 73806 AST With P-5'-P [Catalytic activity/Vol] 14 U/L Normal 9-39 [facility] Comment on above: Performed By: #### 2 4323-8 #### ELIEL Desai ([id number]) [facility] ([facility]) [address] [place] [address] 58786 Bilirubin [Mass/Vol] 0.4 mg/dL Normal 0.0-1.2 [facility] Comment on above: Performed By: #### 2 4323-8 #### ELIEL Desai ([id number]) [facility] ([facility]) [address] [place] [address] 68476 Calcium [Mass/Vol] 9.0 mg/dL Normal 8.6-10.6 [facility] Comment on above: Performed By: #### 2 4323-8 #### ELIEL Desai ([id number]) [facility] ([facility]) [address] [place] [address] Chloride [Moles/Vol] 107 mmol/L Normal 98-107 [facility] Comment on above: Performed By: #### 2 4323-8 #### ELIEL Desai ([id number]) [facility] ([facility]) [address] [place] [address] 66996 CO2 [Moles/Vol] 20 mmol/L Low 21-32 [facility] Comment on above: Performed By: #### 2 4323-8 #### ELIEL Desai ([id number]) [facility] ([facility]) [address] [place] [address] 73793 Creatinine [Mass/Vol] 0.78 mg/dL Normal 0.50-1.05 [facility] Comment on above: Performed By: #### 2 4323-8 #### ELIEL Desai ([id number]) [facility] ([facility]) [address] [place] [address] GFR/1.73 sq M.predicted MDRD (S/P/Bld) [Vol rate/Area] mL/min/{1.73_m2} Normal >60 [facility] Comment on above: Result Comment: Calc ulations of estimated GFR are performed using the 2020 CKD-EPI Study Refit equation without the race variable for the IDMS-Traceable creatinine methods. https://jasn.asnjournals.org/content//ASN.18134647 88 Performed By: #### 2 4323-8 #### ELIEL Desai ([id number]) [facility] ([facility]) [address] [place] [address] 11060 Glucose [Mass/Vol] 138 mg/dL High 74-99 [facility] Comment on above: Performed By: #### 2 4323-8 #### ELIEL Desai ([id number]) [facility] ([facility]) [address] [place] [address] Potassium [Moles/Vol] 3.8 mmol/L Normal 3.5-5.3 [facility] Comment on above: Performed By: #### 2 4323-8 #### ELIEL Desai ([id number]) [facility] ([facility]) [address] [place] [address] 33361 Protein [Mass/Vol] 8.3 g/dL High 6.4-8.2 [facility] Comment on above: Performed By: #### 2 4323-8 #### ELIEL Desai ([id number]) [facility] ([facility]) [address] [place] [address] 82638 Sodium [Moles/Vol] 139 mmol/L Normal 136-145 [facility] Comment on above: Performed By: #### 2 4323-8 #### ELIEL Desai ([id number]) [facility] ([facility]) [address] [place] [address] 32137 Urea nitrogen [Mass/Vol] 10 mg/dL Normal 6-23 [facility] Comment on above: Performed By: #### 2 4323-8 #### ELIEL Desai ([id number]) [facility] ([facility]) [address] [place] [address] 57831 Lactateon 04-16-2024 Lactate [Moles/Vol] 1.3 mmol/L 0.4 - 2. 0 mmol/L [facility] Lactate [Moles/Vol] 1.3 mmol/L Normal 0.4-2.0 [facility] Comment on above: Order Comment: Venip uncture immediately after or during the administration of Metamizole may lead to falsely low results. Testing should be performed immediately prior to Metamizole dosing. Performed By: #### 2 524-7 #### ELIEL Desai ([id number]) [facility] ([facility]) [address] [place] [address] 97429 Lactate [Moles/Vol]on 2023 Interpretation and review of laboratory results Normal [facility] Venipuncture immedia tely after or during the administration of Metamizole may lead to falsely low results. Testing should be performed immediately prior to Metamizole dosing. [facility] Magnesiumon 04-16-2024 Magnesium [Mass/Vol] 2.07 mg/dL 1.60 - 2.40 mg/dL [facility] Magnesium [Mass/Vol] 2.07 mg/dL Normal 1.60-2.40 [facility] Comment on above: Performed By: #### 1 9123-9 #### ELIEL Desai ([id number]) [facility] ([facility]) [address] [place], [place] [address] Magnesium [Mass/Vol]on 04-16 Interpretation and review of laboratory results Normal [facility] No Panel Informationon 04-16 [facility] PT and aPTT panel Coag (PPP) on 04-16-2024 aPTT Coag (PPP) [Time] 31 s [facility] INR Coag (PPP) [Relative time] 1.2 {INR} High 0.9 - 1.1 [facility] Interpretation and review of laboratory results Abnormal [facility] PT Coag (PPP) [Time] 13.1 s High [facility] The APTT is no longe r used for monitoring Unfractionated Heparin Therapy. For monitoring Heparin Therapy, use the Heparin Assay. [facility] aPTT Coag (PPP) [Time] 31 s Normal 27-38 [facility] Comment on above: Order Comment: The A PTT is no longer used for monitoring Unfractionated Heparin Therapy. For monitoring Heparin Therapy, use the Heparin Assay. Performed By: #### 3 4529-8 #### ELIEL Desai ([id number]) [facility] ([facility]) [address] [place] [address] 50648 INR Coag (PPP) [Relative time] 1.2 High 0.9-1.1 [facility] Comment on above: Order Comment: The A PTT is no longer used for monitoring Unfractionated Heparin Therapy. For monitoring Heparin Therapy, use the Heparin Assay. Performed By: #### 3 4529-8 #### ELIEL Desai ([id number]) [facility] ([facility]) [address] [place] [address] 44269 PT Coag (PPP) [Time] 13.1 s High 9.8-12.8 [facility] Comment on above: Order Comment: The A PTT is no longer used for monitoring Unfractionated Heparin Therapy. For monitoring Heparin Therapy, use the Heparin Assay. Performed By: #### 3 4529-8 #### ELIEL Desai ([id number]) [facility] ([facility]) [address] [place] [address] XR CHEST 1 VIEWon 04-16-2024 XR CHEST 1 VIEW Interpreted By: Darian Hurst, STUDY: XR CHEST 1 VIEW; 04/16/2024 1:20 pm INDICATION: Signs/Symptoms:ng tube placement. COMPARISON: None. ACCESSION NUMBER(S): [id number] ORDERING CLINICIAN: ELENA KELSEY FINDINGS: NG tube tip projects over the gastric fundus with the side hole below the GE junction. CARDIOMEDIASTINAL SILHOUETTE: Cardiomediastinal silhouette is normal in size and configuration. LUNGS: Mild bibasilar atelectasis. No acute abnormality seen ABDOMEN: No remarkable upper abdominal findings. BONES: No acute osseous changes. IMPRESSION: 1. NG tube tip projects over the gastric fundus MACRO: None Signed by: Darian Marie 04/16/2024 1:29 PM Dictation workstation: [id number] [facility] XR CHEST 1 VIEW Interpreted By: Darian Hurst and Roel Villalta STUDY: XR CHEST 1 VIEW; 04/16/2024 12:05 pm INDICATION: Signs/Symptoms:confirm ng tube placement. COMPARISON: Two-view chest 08/02/2015 ACCESSION NUMBER(S): [id number] ORDERING CLINICIAN: ELENA KELSEY FINDINGS: AP radiograph of the chest was provided. Enteric tube terminates over the mid esophagus. CARDIOMEDIASTINAL SILHOUETTE: Cardiomediastinal silhouette is normal in size and configuration. LUNGS: No focal consolidation, pleural effusion, or pneumothorax. ABDOMEN: No remarkable upper abdominal findings. BONES: No acute osseous changes. IMPRESSION: 1. Enteric tube terminates over the mid esophagus. Recommend advancement. 2. No focal consolidation, pleural effusion, or pneumothorax. I personally reviewed the image(s)/study and resident interpretation. I agree with the findings as stated by resident Pawan Sevilla. Data analyzed and images interpreted at [facility], [place], [place]. MACRO: Critical Finding: Malpositioned line or tube. Notification was initiated on 04/16/2024 at 12:10 pm by Pawan Sevilla. (-YCF-) Instructions: Signed by: Darian Marie 04/16/2024 1:07 PM Dictation workstation: [id number] Normal [facility] XR Chest Single viewon 04-16 1. NG tube tip proje cts over the gastric fundus MACRO: None Signed by: Darian Marie 04/16/2024 1:29 PM Dictation workstation: [id number] [facility] Interpreted By: Darian Hurst, STUDY: XR CHEST 1 VIEW; 04/16/2024 1:20 pm INDICATION: Signs/Symptoms:ng tube placement. COMPARISON: None. ACCESSION NUMBER(S): [id number] ORDERING CLINICIAN: ELENA KELSEY FINDINGS: NG tube tip projects over the gastric fundus with the side hole below the GE junction. CARDIOMEDIASTINAL SILHOUETTE: Cardiomediastinal silhouette is normal in size and configuration. LUNGS: Mild bibasilar atelectasis. No acute abnormality seen ABDOMEN: No remarkable upper abdominal findings. BONES: No acute osseous changes. MMODAL Darian Marie MD - 04/16/2024 Interpreted By: Darian Marie, STUDY: XR CHEST 1 VIEW; 04/16/2024 1:20 pm INDICATION: Signs/Symptoms:ng tube placement. COMPARISON: None. ACCESSION NUMBER(S): [id number] ORDERING CLINICIAN: ELENA KELSEY FINDINGS: NG tube tip projects over the gastric fundus with the side hole below the GE junction. CARDIOMEDIASTINAL SILHOUETTE: Cardiomediastinal silhouette is normal in size and configuration. LUNGS: Mild bibasilar atelectasis. No acute abnormality seen ABDOMEN: No remarkable upper abdominal findings. BONES: No acute osseous changes. IMPRESSION: 1. NG tube tip projects over the gastric fundus MACRO: None Signed by: Darian Marie 04/16/2024 1:29 PM Dictation workstation: [id number] [facility] Work Phone: [facility] Work Phone: Radiology Study observation (narrative) [facility] Work Phone: 1. Enteric tube term inates over the mid esophagus. Recommend advancement. 2. No focal consolidation, pleural effusion, or pneumothorax. I personally reviewed the image(s)/study and resident interpretation. I agree with the findings as stated by resident Pawan Sevilla. Data analyzed and images interpreted at [facility], [place], [place]. MACRO: Critical Finding: Malpositioned line or tube. Notification was initiated on 04/16/2024 at 12:10 pm by Pawan Sevilla. (-YCF-) Instructions: Signed by: Darian Marie 04/16/2024 1:07 PM Dictation workstation: [id number] [facility] Interpreted By: Darian Hurst and [place]dor[place] Conner STUDY: XR CHEST 1 VIEW; 04/16/2024 12:05 pm INDICATION: Signs/Symptoms:confirm ng tube placement. COMPARISON: Two-view chest 08/02/2015 ACCESSION NUMBER(S): [id number] ORDERING CLINICIAN: ELENA KELSEY FINDINGS: AP radiograph of the chest was provided. Enteric tube terminates over the mid esophagus. CARDIOMEDIASTINAL SILHOUETTE: Cardiomediastinal silhouette is normal in size and configuration. LUNGS: No focal consolidation, pleural effusion, or pneumothorax. ABDOMEN: No remarkable upper abdominal findings. BONES: No acute osseous changes. [facility] Darian Marie MD - 04/16/2024 Interpreted By: Darian Marie and [place] Conner STUDY: XR CHEST 1 VIEW; 04/16/2024 12:05 pm INDICATION: Signs/Symptoms:confirm ng tube placement. COMPARISON: Two-view chest 08/02/2015 ACCESSION NUMBER(S): [id number] ORDERING CLINICIAN: ELENA KELSEY FINDINGS: AP radiograph of the chest was provided. Enteric tube terminates over the mid esophagus. CARDIOMEDIASTINAL SILHOUETTE: Cardiomediastinal silhouette is normal in size and configuration. LUNGS: No focal consolidation, pleural effusion, or pneumothorax. ABDOMEN: No remarkable upper abdominal findings. BONES: No acute osseous changes. IMPRESSION: 1. Enteric tube terminates over the mid esophagus. Recommend advancement. 2. No focal consolidation, pleural effusion, or pneumothorax. I personally reviewed the image(s)/study and resident interpretation. I agree with the findings as stated by resident Pawan Sevilla. Data analyzed and images interpreted at [facility], [place], [place]. MACRO: Critical Finding: Malpositioned line or tube. Notification was initiated on 04/16/2024 at 12:10 pm by Pawan Sevilla. (-Y[facility]-) Instructions: Signed by: Darian Marie 04/16/2024 1:07 PM Dictation workstation: [id number] [facility] Work Phone: Radiology Study observation (narrative) [facility] Work Phone: XR Chest Single viewOrdered By: Darian Marie on 04-16-2024 [facility] Work Phone: Superficial Wound Cultureon 03-31-2024 Superficial Wound Culture [...] RESISTANT TO ALL B-LACT[employer] DRUGS. PERFORMED BY: [place] [address] PATHOLOGIST BUSINESS CONTINUITY MANAGER EUGENE MEHTA M.D. Normal [facility] Comment on above: Performed By: #### C [facility] #### [address] THIOPURINE METABOLITES BY LC -MS/MSon 03-02-2024 6-Methylmercaptopur ine (RBC) [Entitic substance] See Note Normal <=5700 [facility] Comment on above: Result Comment: The result for 6-methylmercaptopurine is below the limit of quantification for this assay and cannot be normalized to RBC. Performed By: [employer] [address] [place] [address] Supervisor Floor Assembly: Parth Trevizo MD, PhD CLIA Number: [id number] Performed By: #### 6 [facility] #### [facility] ([place]) ([id number]) [address] [place] [address] 6-Thioguanine (RBC) [Entitic substance] See Note Normal 235-450 [facility] Comment on above: Result Comment: The result [...] developed and its performance characteristics determined by [employer]. It has not been cleared or approved by the U.S. Food and Drug Administration. This test was performed in a CLIA-certified laboratory and is intended for clinical purposes. Performed By: #### 6 MMP #### [facility]) ([id number]) [address] [place] [address] Thyrotropinon 03-02-2024 TSH Qn 5.13 m[IU]/L High 0.44-3.98 [facility] Comment on above: Order Comment: TSH t esting is performed using different testing methodology at [facility] than at [facility]. Direct result comparisons should only be made within the same method. Performed By: #### 3 016-3 #### CORDELL KVOACS ([id number]) [facility] ([facility]) [address] [place] [address] Thyroxine.freeon 03-02-2024 Free T4 [Mass/Vol] 0.97 ng/dL Normal 0.61-1.12 [facility] Comment on above: Order Comment: Thyro xine Free testing is performed using different testing methodology at [facility] than at [facility]. Direct result comparisons should only be [...] By: #### 3 024-7 #### CORDELL KOVACS ([id number]) [facility] ([facility]) [address] [place] [address] CBC W Auto Differential pane l (Bld)on 02-16-2024 Basophils (Bld) [#/Vol] 0.04 x10*3/uL Normal 0.00-0.10 [facility] Comment on above: Performed By: #### 5 7021-8 #### AR CHATMAN ([id number]) [facility] ([facility]) [address] [place] [address] [place] [address] Basophils/100 WBC (Bld) 0.4 % Normal 0.0-2.0 [facility] Comment on above: Performed By: #### 5 7021-8 #### AR CHATMAN ([id number]) [facility] ([facility]) [address] [place] [address] [place] [address] Eosinophils (Bld) [#/Vol] 0.07 x10*3/uL Normal 0.00-0.70 [facility] Comment on above: Performed By: #### 5 7021-8 #### AR CHATMAN ([id number]) [facility] ([facility]) [address] [place] [address] [place] [address] Eosinophils/100 WBC (Bld) 0.8 % Normal 0.0-6.0 [facility] Comment on above: Performed By: #### 5 7021-8 #### AR CHATMAN ([id number]) [facility] ([facility]) [address] [place] [address] [place] [address] Erythrocyte distribution width (RBC) [Ratio] 14.1 % Normal 11.5-14.5 [facility] Comment on above: Performed By: #### 5 7021-8 #### AR CHATMAN ([id number]) [facility] ([facility]) [address] [place] [address] [place] [address] Hematocrit (Bld) [Volume fraction] 34.0 % Low 36.0-46.0 [facility] Comment on above: Performed By: #### 5 7021-8 #### AR CHATMAN ([id number]) [facility] ([facility]) [address] [place] [address] [place] [address] Hemoglobin (Bld) [Mass/Vol] 10.8 g/dL Low 12.0-16.0 [facility] Comment on above: Performed By: #### 5 7021-8 #### AR CHATMAN ([id number]) [facility] ([facility]) [address] [place] [address] [place] [address] Immature granulocytes (Bld) [#/Vol] 0.02 x10*3/uL Normal 0.00-0.70 [facility] Comment on above: Performed By: #### 5 7021-8 #### AR CHATMAN ([id number]) [facility] ([facility]) [address] [place] [address] [place] [address] Immature granulocytes/100 WBC (Bld) 0.2 % Normal 0.0-0.9 [facility] Comment on above: Result Comment: Zulay ture Granulocyte Count (IG) includes promyelocytes, myelocytes and metamyelocytes but does not include bands. Percent differential counts (%) should be interpreted in the context of the absolute cell counts (cells/UL). Performed By: #### 5 7021-8 #### AR CHATMAN ([id number]) [facility] ([facility]) [address] [place] [address] [place] [address] Lymphocytes (Bld) [#/Vol] 2.55 x10*3/uL Normal 1.20-4.80 [facility] Comment on above: Performed By: #### 5 7021-8 #### AR CHATMAN ([id number]) [facility] ([facility]) [address] [place] [address] [place] [address] Lymphocytes/100 WBC (Bld) 27.9 % Normal 13.0-44.0 [facility] Comment on above: Performed By: #### 5 7021-8 #### AR CHATMAN ([id number]) [facility] ([facility]) [address] [place] [address] [place] [address] MCH (RBC) [Entitic mass] 26.9 pg Normal 26.0-34.0 [facility] Comment on above: Performed By: #### 5 7021-8 #### AR CHATMAN ([id number]) [facility] ([facility]) [address] [place] [address] [place] [address] MCHC (RBC) [Mass/Vol] 31.8 g/dL Low 32.0-36.0 [facility] Comment on above: Performed By: #### 5 7021-8 #### AR CHATMAN ([id number]) [facility] ([facility]) [address] [place] [address] [place] [address] MCV (RBC) [Entitic vol] 85 fL Normal 80-100 [facility] Comment on above: Performed By: #### 5 7021-8 #### AR CHATMAN ([id number]) [facility] ([facility]) [address] [place] [address] [place] [address] Monocytes (Bld) [#/Vol] 0.44 x10*3/uL Normal 0.10-1.00 [facility] Comment on above: Performed By: #### 5 7021-8 #### AR CHATMAN ([id number]) [facility] ([facility]) [address] [place] [address] [place] [address] Monocytes/100 WBC (Bld) 4.8 % Normal 2.0-10.0 [facility] Comment on above: Performed By: #### 5 7021-8 #### AR CHATMAN ([id number]) [facility] ([facility]) [address] [place] [address] [place] [address] Neutrophils (Bld) [#/Vol] 6.03 x10*3/uL Normal 1.20-7.70 [facility] Comment on above: Result Comment: Perc ent differential counts (%) should be interpreted in the context of the absolute cell counts (cells/uL). Performed By: #### 5 7021-8 #### AR CHATMAN ([id number]) [facility] ([facility]) [address] [place] [address] [place] [address] Neutrophils/100 WBC (Bld) 65.9 % Normal 40.0-80.0 [facility] Comment on above: Performed By: #### 5 7021-8 #### AR CHATMAN ([id number]) [facility] ([facility]) [address] [place] [address] [place] [address] Platelets (Bld) [#/Vol] 265 x10*3/uL Normal 150-450 [facility] Comment on above: Performed By: #### 5 7021-8 #### AR CHATMAN ([id number]) [facility] ([facility]) [address] [place] [address] [place] [address] RBC (Bld) [#/Vol] 4.02 x10*6/uL Normal 4.00-5.20 [facility] Comment on above: Performed By: #### 5 7021-8 #### AR CHATMAN ([id number]) [facility] ([facility]) [address] [place] [address] [place] [address] WBC (Bld) [#/Vol] 9.2 x10*3/uL Normal 4.4-11.3 [facility] Comment on above: Performed By: #### 5 7021-8 #### AR CHATMAN ([id number]) [facility] ([facility]) [address] [place] [address] [place] [address] Ferritinon 02-16-2024 Ferritin [Mass/Vol] 78 ng/mL Normal 8-150 [facility] Comment on above: Performed By: #### 2 276-4 #### AR CHATMAN ([id number]) [facility] [place] [address] [place] [address] Iron and Iron binding capaci ty panelon 02-16-2024 Iron [Mass/Vol] 68 ug/dL Normal 35-150 [facility] Comment on above: Performed By: #### 5 0190-8 #### AR CHATMAN ([id number]) [facility] ([facility] [address] [place] [address] Iron binding capacity [Mass/Vol] 284 ug/dL Normal 240-445 [facility] Comment on above: Performed By: #### 5 0190-8 #### AR CHATMAN ([id number]) [facility] ([facility] [address] [place] [address] Iron binding capacity.unsaturate d [Mass/Vol] 216 ug/dL Normal 110-370 [facility] Comment on above: Performed By: #### 5 0190-8 #### AR CHATMAN ([id number]) [facility] ([facility] [address] [place] [address] Iron saturation [Mass fraction] 24 % Low 25-45 [facility] Comment on above: Performed By: #### 5 0190-8 #### AR CHATMAN ([id number]) [facility] ([facility] [address] [place] [address] CBC W Auto Differential pane l (Bld)on 12-14-2023 Basophils (Bld) [#/Vol] 0.03 x10*3/uL Normal 0.00-0.10 [facility] Comment on above: Performed By: #### 5 7021-8 #### AR CHATMAN ([id number]) [facility] ([facility]) [address] [place] [address] [place] [address] Basophils/100 WBC (Bld) 0.3 % Normal 0.0-2.0 [facility] Comment on above: Performed By: #### 5 7021-8 #### AR CHATMAN ([id number]) [facility] ([facility]) [address] [place] [address] [place] [address] Eosinophils (Bld) [#/Vol] 0.07 x10*3/uL Normal 0.00-0.70 [facility] Comment on above: Performed By: #### 5 7021-8 #### AR CHATMAN ([id number]) [facility] ([facility]) [address] [place] [address] [place] [address] Eosinophils/100 WBC (Bld) 0.7 % Normal 0.0-6.0 [facility] Comment on above: Performed By: #### 5 7021-8 #### AR CHATMAN ([id number]) [facility] ([facility]) [address] [place] [address] [place] [address] Erythrocyte distribution width (RBC) [Ratio] 13.5 % Normal 11.5-14.5 [facility] Comment on above: Performed By: #### 5 7021-8 #### AR CHATMAN ([id number]) [facility] ([facility]) [address] [place] [address] [place] [address] Hematocrit (Bld) [Volume fraction] 35.0 % Low 36.0-46.0 [facility] Comment on above: Performed By: #### 5 7021-8 #### AR CHATMAN ([id number]) [facility] ([facility]) [address] [place] [address] [place] [address] Hemoglobin (Bld) [Mass/Vol] 11.1 g/dL Low 12.0-16.0 [facility] Comment on above: Performed By: #### 5 7021-8 #### AR CHATMAN ([id number]) [facility] ([facility]) [address] [place] [address] [place] [address] Immature granulocytes (Bld) [#/Vol] 0.01 x10*3/uL Normal 0.00-0.70 [facility] Comment on above: Performed By: #### 5 7021-8 #### AR CHATMAN ([id number]) [facility] ([facility]) [address] [place] [address] [place] 240[address] Immature granulocytes/100 WBC (Bld) 0.1 % Normal 0.0-0.9 [facility] Comment on above: Result Comment: Zulay ture Granulocyte Count (IG) includes promyelocytes, myelocytes and metamyelocytes but does not include bands. Percent differential counts (%) should be interpreted in the context of the absolute cell counts (cells/UL). Performed By: #### 5 7021-8 #### AR CHATMAN ([id number]) [facility] ([facility]) [address] [place] [address] [place] [address] Lymphocytes (Bld) [#/Vol] 2.56 x10*3/uL Normal 1.20-4.80 [facility] Comment on above: Performed By: #### 5 7021-8 #### AR CHATMAN ([id number]) [facility] ([facility]) [address] [place] [address] [place] [address] Lymphocytes/100 WBC (Bld) 25.0 % Normal 13.0-44.0 [facility] Comment on above: Performed By: #### 5 7021-8 #### AR CHATMAN ([id number]) [facility] ([facility]) [address] [place] [address] [place] [address] MCH (RBC) [Entitic mass] 27.2 pg Normal 26.0-34.0 [facility] Comment on above: Performed By: #### 5 7021-8 #### AR CHATMAN ([id number]) [facility] ([facility]) [address] [place] [address] [place] [address] MCHC (RBC) [Mass/Vol] 31.7 g/dL Low 32.0-36.0 [facility] Comment on above: Performed By: #### 5 7021-8 #### AR CHATMAN ([id number]) [facility] ([facility]) [address] [place] [address] [place] [address] MCV (RBC) [Entitic vol] 86 fL Normal 80-100 [facility] Comment on above: Performed By: #### 5 7021-8 #### AR CHATMAN ([id number]) [facility] ([facility]) [address] [place] [address] [place] [address] Monocytes (Bld) [#/Vol] 0.46 x10*3/uL Normal 0.10-1.00 [facility] Comment on above: Performed By: #### 5 7021-8 #### AR CHATMAN ([id number]) [facility] ([facility]) [address] [place] [address] [place] [address] Monocytes/100 WBC (Bld) 4.5 % Normal 2.0-10.0 [facility] Comment on above: Performed By: #### 5 7021-8 #### AR CHATMAN ([id number]) [facility] ([facility]) [address] [place] [address] [place] [address] Neutrophils (Bld) [#/Vol] 7.12 x10*3/uL Normal 1.20-7.70 [facility] Comment on above: Result Comment: Perc ent differential counts (%) should be interpreted in the context of the absolute cell counts (cells/uL). Performed By: #### 5 7021-8 #### AR CHATMAN ([id number]) [facility] ([facility]) [address] [place] [address] [place] [address] Neutrophils/100 WBC (Bld) 69.4 % Normal 40.0-80.0 [facility] Comment on above: Performed By: #### 5 7021-8 #### AR CHATMAN ([id number]) [facility] ([facility]) [address] [place] [address] [place] [address] Platelets (Bld) [#/Vol] 270 x10*3/uL Normal 150-450 [facility] Comment on above: Performed By: #### 5 7021-8 #### AR CHATMAN ([id number]) [facility] ([facility]) [address] [place] [address] [place] [address] RBC (Bld) [#/Vol] 4.08 x10*6/uL Normal 4.00-5.20 [facility] Comment on above: Performed By: #### 5 7021-8 #### AR CHATMAN ([id number]) [facility] ([facility]) [address] [place] [address] [place] 165[address] WBC (Bld) [#/Vol] 10.3 x10*3/uL Normal 4.4-11.3 [facility] Comment on above: Performed By: #### 5 7021-8 #### AR CHATMAN ([id number]) [facility] ([facility]) [address] [place] [address] [place] [address] Cobalaminson 12-14-2023 Cobalamin (Vitamin B12) [Mass/Vol] 437 pg/mL Normal 211-911 [facility] Comment on above: Performed By: #### 2 132-9 #### ELIEL Desai ([id number]) [facility] ([facility]) [id number] [place] [address] Comprehensive metabolic 2000 panelon 12-14-2023 Albumin BCP dye [Mass/Vol] 4.0 g/dL Normal 3.4-5.0 [facility] Comment on above: Performed By: #### 2 4323-8 #### AR CHATMAN ([id number]) [facility] ([facility]) [address] [place] [address] [place] [address] ALP [Catalytic activity/Vol] 46 U/L Normal 33-110 [facility] Comment on above: Performed By: #### 2 4323-8 #### AR CHATMAN ([id number]) [facility] ([facility]) [address] [place] [address] [place] [address] ALT With P-5'-P [Catalytic activity/Vol] 10 U/L Normal 7-45 [facility] Comment on above: Result Comment: Sridevi ents treated with Sulfasalazine may generate falsely decreased results for ALT. Performed By: #### 2 4323-8 #### AR CHATMAN ([id number]) [facility] ([facility]) [address] [place] [address] [place] [address] Anion gap [Moles/Vol] 12 mmol/L Normal 10-20 [facility] Comment on above: Performed By: #### 2 432-8 #### AR CHATMAN ([id number]) [facility] ([facility]) [address] [place] [address] [place] [address] AST With P-5'-P [Catalytic activity/Vol] 13 U/L Normal 9-39 [facility] Comment on above: Performed By: #### 2 432-8 #### AR CHATMAN ([id number]) [facility] ([facility]) [address] [place] [address] [place] [address] Bilirubin [Mass/Vol] 0.3 mg/dL Normal 0.0-1.2 [facility] Comment on above: Performed By: #### 2 432-8 #### AR CHATMAN ([id number]) [facility] ([facility]) [address] [place] [address] [place] [address] Calcium [Mass/Vol] 9.0 mg/dL Normal 8.6-10.3 [facility] Comment on above: Performed By: #### 2 432-8 #### AR CHATMAN ([id number]) [facility] ([facility]) [address] [place] [address] [place] [address] Chloride [Moles/Vol] 105 mmol/L Normal 98-107 [facility] Comment on above: Performed By: #### 2 432-8 #### AR CHATMAN ([id number]) [facility] ([facility]) [address] [place] [address] [place] 83095 CO2 [Moles/Vol] 26 mmol/L Normal 21-32 [facility] Comment on above: Performed By: #### 2 4323-8 #### AR CHATMAN ([id number]) [facility] ([facility]) [address] [place] [address] [place] 467[address] Creatinine [Mass/Vol] 0.88 mg/dL Normal 0.50-1.05 [facility] Comment on above: Performed By: #### 2 4323-8 #### AR CHATMAN ([id number]) [facility] ([facility]) [address] [place] [address] [place] [address] Glomerular filtration rate/1.73 sq M.predicted 89 mL/min/1.73m*2 Normal >60 [facility] Comment on above: Result Comment: Calc ulations of estimated GFR are performed using the 2020 CKD-EPI Study Refit equation without the race variable for the IDMS-Traceable creatinine methods. https://jasn.asnjournals.org/content//ASN.50496814 88 Performed By: #### 2 4323-8 #### AR CHATMAN ([id number]) [facility] ([facility]) [address] [place] [address] [place] [address] Glucose [Mass/Vol] 98 mg/dL Normal 74-99 [facility] Comment on above: Performed By: #### 2 4323-8 #### AR CHATMAN ([id number]) [facility] ([facility]) [address] [place] [address] [place] [address] Potassium [Moles/Vol] 3.6 mmol/L Normal 3.5-5.3 [facility] Comment on above: Performed By: #### 2 4323-8 #### AR CHATMAN ([id number]) [facility] ([facility]) [address] [place] [address] [place] 546[address] Protein [Mass/Vol] 7.9 g/dL Normal 6.4-8.2 [facility] Comment on above: Performed By: #### 2 4323-8 #### AR CHATMAN ([id number]) [facility] ([facility]) [address] [place] [address] [place] 211[address] Sodium [Moles/Vol] 139 mmol/L Normal 136-145 [facility] Comment on above: Performed By: #### 2 4323-8 #### AR CHATMAN ([id number]) [facility] ([facility]) [id number] [place] [address] [place] [address] Urea nitrogen [Mass/Vol] 9 mg/dL Normal 6-23 [facility] Comment on above: Performed By: #### 2 4323-8 #### AR CHATMAN ([id number]) [facility] ([facility]) [id number] [place] [address] [place] [address] Ferritinon 12-14-2023 Ferritin [Mass/Vol] 75 ng/mL Normal 8-150 [facility] Comment on above: Performed By: #### 2 276-4 #### AR CHATMAN ([id number]) [facility] [place] [address] [place] [address] Iron and Iron binding capaci ty panelon 12-14-2023 Iron [Mass/Vol] 39 ug/dL Normal 35-150 [facility] Comment on above: Performed By: #### 5 0190-8 #### AR CHATMAN ([id number]) [facility] [place] [address] [address] Iron binding capacity [Mass/Vol] 325 ug/dL Normal 240-445 [facility] Comment on above: Performed By: #### 5 0190-8 #### AR CHATMAN ([id number]) [facility] [place] [address] [place] [address] Iron binding capacity.unsaturate d [Mass/Vol] 286 ug/dL Normal 110-370 [facility] Comment on above: Performed By: #### 5 0190-8 #### AR CHATMAN ([id number]) [facility] [place] [address] [place] [address] Iron saturation [Mass fraction] 12 % Low 25-45 [facility] Comment on above: Performed By: #### 5 0190-8 #### AR CHATMAN ([id number]) [facility] [place] [address] [place] [address] TSH WITH REFLEX TO FREE T4 I F ABNORMALon 12-11-2023 TSH Qn 11.17 m[IU]/L High 0.44-3.98 [facility] Comment on above: Order Comment: TSH t esting is performed using different testing methodology at [facility] than at other system [facility]. Direct result comparisons should only be made within the same method. Performed By: #### T HYDS #### CORDELL KOVACS ([id number]) [facility] ([facility]) [address] [place] [address] Thyroxine.freeon 12-11-2023 Free T4 [Mass/Vol] 0.81 ng/dL Normal 0.61-1.12 [facility] Comment on above: Order Comment: Thyro xine Free testing is performed using different testing methodology at [facility] than at other [facility]. Direct result comparisons should only be [...] By: #### 3 024-7 #### CORDELL KOVACS ([id number]) [facility] ([facility]) [address] [place] [address] Iron and Iron binding capaci ty panelon 03-13-2023 Interpretation and review of laboratory results Abnormal [facility] Iron [Mass/Vol] 33 ug/dL Low 35 - 150 ug/dL [facility] Iron binding capacity [Mass/Vol] 322 ug/dL 240 - 445 ug/dL [facility] Iron binding capacity.unsaturate d [Mass/Vol] 289 ug/dL 110 - 370 ug/dL [facility] Iron saturation [Mass fraction] 10 % Low 25 - 45 % [facility] C Reactive Protein, Serumon 01-07-2023 CRP [Mass/Vol] Canceled MG-Endocri no logy-[facility] Luis M 1600 Work Phone: CRP [Mass/Vol] 0.38 mg/dL [facility] [address] Work Phone: Comment on above: REF VALUE< 1.00 C-REACTIVE PROTEINon 023 C-REACTIVE PROTEIN 0.38 mg/dL Normal [facility] Comment on above: Result Comment: REF VALUE < 1.00 Performed By: #### C RP #### [address] [place] [address] C-REACTIVE PROTEIN Canceled Normal [facility] Comment on above: Order Comment: TEST C-REACTIVE PROTEIN WAS CANCELLED, 01/07/2023 12:52 DUPLICATE. Performed By: #### C RP #### [address] [place] [address] CBC AND DIFFERENTIALon 01-07 % AUTOMATED IMMATURE GRAN 0.1 % Normal 0.0 - 0.9 [facility] Comment on above: Result Comment: Zulay ture Granulocyte Count (IG) includes promyelocytes, myelocytes and metamyelocytes but does not include bands. Percent differential counts (%) should be interpreted in the context of the absolute cell counts (cells/L). Performed By: #### C BCDF #### [address] [place] [address] Basophils (Bld) [#/Vol] 0.03 10*3/uL Normal 0.00 - 0.10 [facility] Comment on above: Performed By: #### C BCDF #### [address] [place] [address] Basophils/100 WBC (Bld) 0.4 % Normal 0.0 - 2.0 [facility] Comment on above: Performed By: #### C BCDF #### [address] [place] [address] Eosinophils (Bld) [#/Vol] 0.03 10*3/uL Normal 0.00 - 0.70 [facility] Comment on above: Performed By: #### C BCDF #### [address] [place] [address] Eosinophils/100 WBC (Bld) 0.4 % Normal 0.0 - 6.0 [facility] Comment on above: Performed By: #### C BCDF #### [address] [place] [address] Erythrocyte distribution width (RBC) [Ratio] 14.1 % Normal 11.5 - 14.5 [facility] Comment on above: Performed By: #### C BCDF #### [address] [place] [address] Hematocrit (Bld) [Volume fraction] 35.1 % Low 36.0 - 46.0 [facility] Comment on above: Performed By: #### C BCDF #### [address] [place] [address] Hemoglobin (Bld) [Mass/Vol] 11.2 g/dL Low 12.0 - 16.0 [facility] Comment on above: Performed By: #### C BCDF #### [address] [place] [address] Lymphocytes (Bld) [#/Vol] 3.06 10*3/uL Normal 1.20 - 4.80 [facility] Comment on above: Performed By: #### C BCDF #### [address] [place] [address] Lymphocytes/100 WBC (Bld) 36.8 % Normal 13.0 - 44.0 [facility] Comment on above: Performed By: #### C BCDF #### [address] [place] [address] MCHC (RBC) [Mass/Vol] 31.9 g/dL Low 32.0 - 36.0 [facility] Comment on above: Performed By: #### C BCDF #### [address] [place] [address] MCV (RBC) [Entitic vol] 85 fL Normal 80 - 100 [facility] Comment on above: Performed By: #### C BCDF #### [address] [place] [address] Monocytes (Bld) [#/Vol] 0.27 10*3/uL Normal 0.10 - 1.00 [facility] Comment on above: Performed By: #### C BCDF #### [address] [place] [address] Monocytes/100 WBC (Bld) 3.2 % Normal 2.0 - 10.0 [facility] Comment on above: Performed By: #### C BCDF #### [address] [place] [address] Neutrophils (Bld) [#/Vol] 4.92 10*3/uL Normal 1.20 - 7.70 [facility] Comment on above: Performed By: #### C BCDF #### [address] [place] [address] Neutrophils/100 WBC (Bld) 59.1 % Normal 40.0 - 80.0 [facility] Comment on above: Performed By: #### C BCDF #### [address] [place] [address] Platelets (Bld) [#/Vol] 246 10*3/uL Normal 150 - 450 [facility] Comment on above: Performed By: #### C BCDF #### [address] [place] [address] RBC 4.15 x10E12/L Normal 4.00 - 5.20 [facility] Comment on above: Performed By: #### C BCDF #### [address] [place] [address] WBC (Bld) [#/Vol] 8.3 10*3/uL Normal 4.4 - 11.3 [facility] Comment on above: Performed By: #### C BCDF #### [address] [place] [address] Complete Blood Count + Diffe rentialon 01-07-2023 Basophils/100 WBC (Bld) 0.4 % 0.0 - 2.0 [facility] Luis M 1600 Work Phone: Erythrocyte distribution width (RBC) [Ratio] 14.1 % See Below [facility]-Endocrino log[facility] [place] 1600 Work Phone: Comment on above: Reference Range: 11. 5 - 14.5 Hematocrit (Bld) [Volume fraction] 35.1 % below low threshold See Below [facility]ocrino log[facility] [place] [address] Work Phone: Comment on above: Reference Range: 36. 0 - 46.0 Hemoglobin (Bld) [Mass/Vol] 11.2 g/dL below low threshold See Below [facility]ocrino [facility] Luis M 1600 Work Phone: Comment on above: Reference Range: 12. 0 - 16.0 Lymphocytes/100 WBC (Bld) 36.8 % See Below MG-Endocrino logy-[employer] 1600 Work Phone: Comment on above: Reference Range: 13. 0 - 44.0 MCHC (RBC) [Mass/Vol] 31.9 g/dL below low threshold See Below MG-Endocrino logy-[employer] 1600 Work Phone: Comment on above: Reference Range: 32. 0 - 36.0 MCV (RBC) [Entitic vol] 85 fL 80 - 100 MG-Endocrino logy-[employer] 1600 Work Phone: Monocytes/100 WBC (Bld) 3.2 % 2.0 - 10.0 MG-Endocrino logy-[employer] 1600 Work Phone: Neutrophils/100 WBC (Bld) 59.1 % See Below [facility]ocrino logy-[facility] [place] 1600 Work Phone: Comment on above: Reference Range: 40. 0 - 80.0 Platelets (Bld) [#/Vol] 246 10*3/uL 150 - 450 MG-Endocrino logy-[employer] 1600 Work Phone: RBC (Bld) [#/Vol] 4.15 {x10E12/L} See Below [facility] -Endocrino logy-[facility] [employer] Work Phone: [phone] Comment on above: Reference Range: 4.0 0 - 5.20 WBC (Bld) [#/Vol] 8.3 10*3/uL 4.4 - 11.3 MG-End ocrino log-[facility] [employer] Work Phone: [phone] Complete Blood Count + Differential 0.03 {x10E9/L} See Below MG-Endocrino logy-[facility] [employer] Work Phone: [phone] Comment on above: Reference Range: 0.0 0 - 0.10 Reference Range: 0.0 0 - 0.70 Complete Blood Count + Differential 0.27 {x10E9/L} See Below MG-Endocrino logy-[facility] [employer] Work Phone: [phone] Comment on above: Reference Range: 0.1 0 - 1.00 Complete Blood Count + Differential 3.06 {x10E9/L} See Below MG-Endocrino logy-[facility] [employer] Work Phone: Comment on above: Reference Range: 1.2 0 - 4.80 Complete Blood Count + Differential 4.92 {x10E9/L} See Below MG-Endocrino logy-[facility] [employer] Work Phone: Comment on above: Reference Range: 1.2 0 - 7.70 Complete Blood Count + Differential 0.4 % 0.0 - 6.0 MG-Endocrino logy-[facility] [employer] Work Phone: Complete Blood Count + Differential 0.1 % 0.0 - 0.9 [facility]ocrino logy[facility] [employer] Work Phone: Comment on above: Immature Granulocyte Count (IG) includes promyelocytes, myelocytes and metamyelocytes but does not include bands. Percent differential counts (%) should be interpreted in the context of the absolute cell counts (cells/L). FERRITINon 01-07-2023 FERRITIN 34 ug/L Normal 8 - 150 [facility] Comment on above: Performed By: #### F ERRI #### [facility] [address] [place] [address] Ferritin, Serumon 01-07-2023 Ferritin [Mass/Vol] 34 ug/L 8 - 150 MG-En docrino logy-[facility] [employer] 1600 Work Phone: IRON + TIBCon 01-07-2023 % SATURATION 19 % Low 25 - 45 [facility] Comment on above: Performed By: #### C BCDF #### [address] [place] [address] Iron [Mass/Vol] 56 ug/dL Normal 35 - 150 [facility] Comment on above: Performed By: #### C BCDF #### [address] [place] [address] TIBC 302 ug/dL Normal 240 - 445 [facility] Comment on above: Performed By: #### C BCDF #### [address] [place] [address] Laboratory - Chemistry and C hemistry - challengeon 01-07-2023 Iron [Mass/Vol] 56 ug/dL 35 - 150 MG-Endocr chin logy-[facility] [employer] [address] Work Phone: [phone] Iron binding capacity [Mass/Vol] 302 ug/dL 240 - 445 [facility]-Endocrino logy-[facility] [employer] 1600 Work Phone: [phone] No Panel Informationon 01-07 19 % below low threshold 25 - 45 [facility]ocrino logy[facility] [employer] 1600 Work Phone: SEDIMENTATION RATE, ERYTHROC YTEon 01-07-2023 SEDIMENTATION RATE, ERYTHROCYTE 70 mm/h High 0 - 20 [facility] Comment on above: Performed By: #### C BCDF #### [address] [place] [address] Sedimentation Rate, Erythroc yteon 01-07-2023 ESR (Bld) [Velocity] 70 mm/h above high threshold 0 - 20 [facility]ocrino logy[facility] [employer] 1600 Work Phone: Office Visiton 12-11-2022 Follow-up [...] (377.03) (H4 (more content not included)... Normal [facility] Tobacco Screening.on 023 Adult depression screening assessment No MP-Otolaryng ology-Zach medina Mehran 250 Work Phone: Fall risk assessment a) No falls within the last year -Otolaryn sarysienna-Zach SJW 250 Work Phone: Tobacco use status CPHS b) No RICK-Otmusa okeefesienna-Zach medina SJW 250 Work Phone: Clinic Note - Heme Onc [...] by Yumiko Schmidt (Rev Cycl Spec) Normal [facility] Clinic Note - Heme Onc-Benig n Heme Follow-upon 11-11-2022 Clinic Note - Heme Onc-Benign Heme Follow-up Patient Visit Information: Visit Type: Benign Heme Follow-up History of Present Illness: ID Statement: LOLA HIGGINBOTHAM is a 32 year old Female Chief Complaint: iron deficiency anemia, follow up Interval History: Ms. Higginbotham is a 27yo female with complicated Crohn's disease since 2011 , was hospitalized at [facility] in 07/2015 (1st since Dx) with [...] said she had to go back to [facility] lab 3 times -she is on [...] (CMV) viremia (more content not included)... Normal [facility] Clinic Note - Intakeon 11-11 Clinic Note - Intake Patient Visit Information: Visit TypeFollow Up Visit Source of Informationpatient Admission Information: Admission Since Last VisitYes Name of LocationEmergency [facility] [id number] Admission Reason/Detailseye flare-up Vital Signs: Temp (degrees [...] Vitals/Vitals CommentB/P reported to Marquita Cuellar RN () Last 3 Weights & HeightsDate: Weight/Scale Type:Height: [...] Updated: 11-Nov-2022 09:10 by Petra Barton (VIDHI BERGERON) Normal [facility] CBC AND DIFFERENTIALon 11-10 % AUTOMATED IMMATURE GRAN 0.2 % Normal 0.0 - 0.9 [facility] Comment on above: Result Comment: Zulay ture Granulocyte Count (IG) includes promyelocytes, myelocytes and metamyelocytes but does not include bands. Percent differential counts (%) should be interpreted in the context of the absolute cell counts (cells/L). Performed By: #### C BCDF #### [address] [place] [address] Basophils (Bld) [#/Vol] 0.04 10*3/uL Normal 0.00 - 0.10 [facility] Comment on above: Performed By: #### C BCDF #### [address] [place] [address] Basophils/100 WBC (Bld) 0.4 % Normal 0.0 - 2.0 [facility] Comment on above: Performed By: #### C BCDF #### [address] [place] [address] Eosinophils (Bld) [#/Vol] 0.07 10*3/uL Normal 0.00 - 0.70 [facility] Comment on above: Performed By: #### C BCDF #### [address] [place] [address] Eosinophils/100 WBC (Bld) 0.7 % Normal 0.0 - 6.0 [facility] Comment on above: Performed By: #### C BCDF #### [address] [place] [address] Erythrocyte distribution width (RBC) [Ratio] 13.9 % Normal 11.5 - 14.5 [facility] Comment on above: Performed By: #### C BCDF #### [address] [place] [address] Hematocrit (Bld) [Volume fraction] 33.1 % Low 36.0 - 46.0 [facility] Comment on above: Performed By: #### C BCDF #### [address] [place] [address] Hemoglobin (Bld) [Mass/Vol] 10.4 g/dL Low 12.0 - 16.0 [facility] Comment on above: Performed By: #### C BCDF #### [address] [place] [address] Lymphocytes (Bld) [#/Vol] 3.29 10*3/uL Normal 1.20 - 4.80 [facility] Comment on above: Performed By: #### C BCDF #### [address] [place] [address] Lymphocytes/100 WBC (Bld) 30.7 % Normal 13.0 - 44.0 [facility] Comment on above: Performed By: #### C BCDF #### [address] [place] [address] MCHC (RBC) [Mass/Vol] 31.4 g/dL Low 32.0 - 36.0 [facility] Comment on above: Performed By: #### C BCDF #### [address] [place] [address] MCV (RBC) [Entitic vol] 86 fL Normal 80 - 100 [facility] Comment on above: Performed By: #### C BCDF #### [address] [place] [address] Monocytes (Bld) [#/Vol] 0.46 10*3/uL Normal 0.10 - 1.00 [facility] Comment on above: Performed By: #### C BCDF #### [address] [place] [address] Monocytes/100 WBC (Bld) 4.3 % Normal 2.0 - 10.0 [facility] Comment on above: Performed By: #### C BCDF #### [address] [place] [address] Neutrophils (Bld) [#/Vol] 6.85 10*3/uL Normal 1.20 - 7.70 [facility] Comment on above: Performed By: #### C BCDF #### [address] [place] [address] Neutrophils/100 WBC (Bld) 63.7 % Normal 40.0 - 80.0 [facility] Comment on above: Performed By: #### C BCDF #### [address] [place] [address] Platelets (Bld) [#/Vol] 271 10*3/uL Normal 150 - 450 [facility] Comment on above: Performed By: #### C BCDF #### [address] [place] [address] RBC 3.84 x10E12/L Low 4.00 - 5.20 [facility] Comment on above: Performed By: #### C BCDF #### [address] [place] [address] WBC (Bld) [#/Vol] 10.7 10*3/uL Normal 4.4 - 11.3 [facility] Comment on above: Performed By: #### C BCDF #### [address] [place] [address] FERRITINon 11-10-2022 FERRITIN 34 ug/L Normal 8 - 150 [facility] Comment on above: Performed By: #### F ERRI #### [address] [place] [address] IRON + TIBCon 11-10-2022 % SATURATION 26 % Normal 25 - 45 [facility] Comment on above: Performed By: #### I RONT #### [address] [place] [address] Iron [Mass/Vol] 78 ug/dL Normal 35 - 150 [facility] Comment on above: Performed By: #### I RONT #### [address] [place] [address] TIBC 302 ug/dL Normal 240 - 445 [facility] Comment on above: Performed By: #### I RONT #### [address] [place] [address] Office Visiton 09-09-2022 Follow-up visit Diagnoses/Problems Chronic [...] (H47.10) His (more content not included)... Normal [facility] Tobacco Screening.on 023 Adult depression screening assessment No [employer] [facility] [employer] [employer] Work Phone: Fall risk assessment a) No falls within the last year [employer]astro[employer] logCotendo-[employer] e [facility] [employer] Work Phone: Tobacco use status CPHS b) No [employer] [facility]astro[facility]ero logy-[facility] [employer] Work Phone: Ophthalmic Eye Examon 2022 Ophthalmic Eye Exam DOCUMENT REVIEWED BY : Tom Vasquez DOCUMENT SIGNED ELECTRONICALLY BY Tom Vasquez ON 09/05/2022 12:43:49 PM [id number] [place], [address] THIS DOCUMENT WAS CREATED ON: 09/05/2022 08:52:42 AM BY: Tom Fontana performed [id number] Exam Date: Monday, September 05, 2022 PATIENT NAME: LOLA HIGGINBOTHAM DATE: 1990 AGE: 32 GENDER: Female RACE: PRIMARY CARE PHYSICIAN: Matthew Orozco History Chief Complaint/Reason For Visit: 32yof 1m f/up. pt states vision is unchanged since last exam ou, denies pain ou, denies flashes ou, denies floaters ou. HISTORY OF PRESENT ILLNESS: HPI was performed by Dr. Tom Vasquez and scribed by [employer] Tom Vasquez PAST MEDICAL HISTORY: OCULAR: Chronic Iritis [...] DATE-TIME: 09/05/2022 8:29:16 AM 09/05/2022 8:29:16 AM NURSE CLINICAL: jessica [email or web address] CONFRONTATION VF Full to count fingers Full [...] Clear FUNDUS EXAM: DILATION and NUMBING DROPS: Paulo 2.5% AND Mydriacyl 1% OU 09/05/2022 08:28:54 AM CUP TO DISC: .2 tilted drusen disc .2 tilted OPTIC DISC: [place] and sharp [place] and sharp VITREOUS: Clear Clear MACULA: No (more content not included)... Normal [facility] C Reactive Protein, Serumon 08-19-2022 CRP [Mass/Vol] 0.41 mg/dL -Univ Gastroentero logy-N [facility]an Work Phone: Comment on above: REF VALUE< 1.00 C-REACTIVE PROTEINon 023 C-REACTIVE PROTEIN 0.41 mg/dL Normal [facility] Comment on above: Result Comment: REF VALUE < 1.00 Performed By: #### C RP #### [facility] [address] [place], [place] [id number] CBC AND DIFFERENTIALon 08-19 % AUTOMATED IMMATURE GRAN 0.2 % Normal 0.0 - 0.9 [facility] Comment on above: Result Comment: Zulay ture Granulocyte Count (IG) includes promyelocytes, myelocytes and metamyelocytes but does not include bands. Percent differential counts (%) should be interpreted in the context of the absolute cell counts (cells/L). Performed By: #### C BCDF ####[address] [id number] Basophils (Bld) [#/Vol] 0.05 10*3/uL Normal 0.00 - 0.10 [facility] Comment on above: Performed By: #### C BCDF ####[address] [id number] Basophils/100 WBC (Bld) 0.6 % Normal 0.0 - 2.0 [facility] Comment on above: Performed By: #### C BCDF ####[facility] [place] [id number] Eosinophils (Bld) [#/Vol] 0.10 10*3/uL Normal 0.00 - 0.70 [facility] Comment on above: Performed By: #### C BCDF ####[address] [id number] Eosinophils/100 WBC (Bld) 1.2 % Normal 0.0 - 6.0 [facility] Comment on above: Performed By: #### C BCDF ####[address] [id number] Erythrocyte distribution width (RBC) [Ratio] 13.7 % Normal 11.5 - 14.5 [facility] Comment on above: Performed By: #### C BCDF ####[address] [id number] Hematocrit (Bld) [Volume fraction] 37.4 % Normal 36.0 - 46.0 [facility] Comment on above: Performed By: #### C BCDF ####[address] [id number] Hemoglobin (Bld) [Mass/Vol] 11.4 g/dL Low 12.0 - 16.0 [facility] Comment on above: Performed By: #### C BCDF ####[address] [id number] Lymphocytes (Bld) [#/Vol] 2.80 10*3/uL Normal 1.20 - 4.80 [facility] Comment on above: Performed By: #### C BCDF ####[address] [id number] Lymphocytes/100 WBC (Bld) 32.8 % Normal 13.0 - 44.0 [facility] Comment on above: Performed By: #### C BCDF ####[address] [id number] MCHC (RBC) [Mass/Vol] 30.5 g/dL Low 32.0 - 36.0 [facility] Comment on above: Performed By: #### C BCDF ####[address] [id number] MCV (RBC) [Entitic vol] 88 fL Normal 80 - 100 [facility] Comment on above: Performed By: #### C BCDF ####[address] [id number] Monocytes (Bld) [#/Vol] 0.38 10*3/uL Normal 0.10 - 1.00 [facility] Comment on above: Performed By: #### C BCDF ####[facility] [place], [place] [id number] Monocytes/100 WBC (Bld) 4.5 % Normal 2.0 - 10.0 [facility] Comment on above: Performed By: #### C BCDF ####[facility] [place], [place] [id number] Neutrophils (Bld) [#/Vol] 5.18 10*3/uL Normal 1.20 - 7.70 [facility] Comment on above: Performed By: #### C BCDF ####[facility] [place], [place] [id number] Neutrophils/100 WBC (Bld) 60.7 % Normal 40.0 - 80.0 [facility] Comment on above: Performed By: #### C BCDF ####[facility] [place], [place] [id number] Platelets (Bld) [#/Vol] 301 10*3/uL Normal 150 - 450 [facility] Comment on above: Performed By: #### C BCDF ####[facility] [place], [place] [id number] RBC 4.26 x10E12/L Normal 4.00 - 5.20 [facility] Comment on above: Performed By: #### C BCDF ####[facility] [place], [place] [id number] WBC (Bld) [#/Vol] 8.5 10*3/uL Normal 4.4 - 11.3 [facility] Comment on above: Performed By: #### C BCDF ####[facility] [place], [place] [id number] COMPREHENSIVE PANELon 2022 Albumin [Mass/Vol] 4.0 g/dL Normal 3.4 - 5.0 [facility] Comment on above: Performed By: #### C MP #### [facility] [address] [place], [place] [phone] ALP [Catalytic activity/Vol] 43 U/L Normal 33 - 110 [facility] Comment on above: Performed By: #### C MP #### [address] [id number] ALT [Catalytic activity/Vol] 13 U/L Normal 7 - 45 [facility] Comment on above: Result Comment: Sridevi ents treated with Sulfasalazine may generate falsely decreased results for ALT. Performed By: #### C MP #### [address] [id number] Anion gap [Moles/Vol] 10 mmol/L Normal 10 - 20 [facility] Comment on above: Performed By: #### C MP #### [address] [id number] AST [Catalytic activity/Vol] 22 U/L Normal 9 - 39 [facility] Comment on above: Performed By: #### C MP #### [address] [id number] Bilirubin [Mass/Vol] 0.5 mg/dL Normal 0.0 - 1.2 [facility] Comment on above: Performed By: #### C MP #### [address] [id number] Calcium [Mass/Vol] 8.9 mg/dL Normal 8.6 - 10.3 [facility] Comment on above: Performed By: #### C MP #### [address] [id number] Chloride [Moles/Vol] 104 mmol/L Normal 98 - 107 [facility] Comment on above: Performed By: #### C MP #### [address] [id number] Creatinine [Mass/Vol] 0.83 mg/dL Normal 0.50 - 1.05 [facility] Comment on above: Performed By: #### C MP #### [address] [id number] eGFR FEMALE >90 Normal >90 [facility] Comment on above: Result Comment: CALC ULATIONS OF ESTIMATED GFR ARE PERFORMED USING THE 2020 CKD-EPI STUDY REFIT EQUATION WITHOUT THE RACE VARIABLE FOR THE IDMS-TRACEABLE CREATININE METHODS. https://jasn.asnjournals.org/content//ASN.63336751 88 Performed By: #### C MP #### [address] [id number] Glucose [Mass/Vol] 89 mg/dL Normal 74 - 99 [facility] Comment on above: Performed By: #### C MP #### [address] [id number] HCO3 (Bld) [Moles/Vol] 28 mmol/L Normal 21 - 32 [facility] Comment on above: Performed By: #### C MP #### [address] [id number] Potassium [Moles/Vol] 3.8 mmol/L Normal 3.5 - 5.3 [facility] Comment on above: Performed By: #### C MP #### [address] [id number] Protein [Mass/Vol] 7.8 g/dL Normal 6.4 - 8.2 [facility] Comment on above: Performed By: #### C MP #### [address] [id number] Sodium [Moles/Vol] 138 mmol/L Normal 136 - 145 [facility] Comment on above: Performed By: #### C MP #### [address] [id number] Urea nitrogen [Mass/Vol] 12 mg/dL Normal 6 - 23 [facility] Comment on above: Performed By: #### C MP #### [address] [id number] Complete Blood Count + Diffe rentialon 08-19-2022 Basophils/100 WBC (Bld) 0.6 % 0.0 - 2.0 [facility] Work Phone: Erythrocyte distribution width (RBC) [Ratio] 13.7 % See Below [facility] Work Phone: Comment on above: Reference Range: 11. 5 - 14.5 Hematocrit (Bld) [Volume fraction] 37.4 % See Below [facility] Work Phone: Comment on above: Reference Range: 36. 0 - 46.0 Hemoglobin (Bld) [Mass/Vol] 11.4 g/dL below low threshold See Below [facility] Work Phone: Comment on above: Reference Range: 12. 0 - 16.0 Lymphocytes/100 WBC (Bld) 32.8 % See Below [facility] Work Phone: Comment on above: Reference Range: 13. 0 - 44.0 MCHC (RBC) [Mass/Vol] 30.5 g/dL below low threshold See Below [facility] Work Phone: Comment on above: Reference Range: 32. 0 - 36.0 MCV (RBC) [Entitic vol] 88 fL 80 - 100 [facility] Work Phone: Monocytes/100 WBC (Bld) 4.5 % 2.0 - 10.0 [facility] Work Phone: Neutrophils/100 WBC (Bld) 60.7 % See Below [facility] Work Phone: Comment on above: Reference Range: 40. 0 - 80.0 Platelets (Bld) [#/Vol] 301 10*3/uL 150 - 450 [facility] Work Phone: RBC (Bld) [#/Vol] 4.26 {x10E12/L} See Below [facility] Work Phone: Comment on above: Reference Range: 4.0 0 - 5.20 WBC (Bld) [#/Vol] 8.5 10*3/uL 4.4 - 11.3 [employer] [facility] Work Phone: Complete Blood Count + Differential 0.05 {x10E9/L} See Below [facility] Work Phone: Comment on above: Reference Range: 0.0 0 - 0.10 Complete Blood Count + Differential 0.10 {x10E9/L} See Below [facility] Work Phone: Comment on above: Reference Range: 0.0 0 - 0.70 Complete Blood Count + Differential 0.38 {x10E9/L} See Below [facility] Work Phone: Comment on above: Reference Range: 0.1 0 - 1.00 Complete Blood Count + Differential 2.80 {x10E9/L} See Below [facility] Work Phone: Comment on above: Reference Range: 1.2 0 - 4.80 Complete Blood Count + Differential 5.18 {x10E9/L} See Below [facility] Work Phone: Comment on above: Reference Range: 1.2 0 - 7.70 Complete Blood Count + Differential 1.2 % 0.0 - 6.0 [facility] Work Phone: Complete Blood Count + Differential 0.2 % 0.0 - 0.9 [facility] Work Phone: Comment on above: [...] complication; JABARI = N; Verified Transmission to [facility] 1985; Last Updated By: July Gorman; 08/19/2022 10:21:12 AM C Reactive Protein, Serum; Status:Active; Requested for:19Aug2022; Perform:Lab Services - Lab To Draw (Blood Test); Due:[id number];Ordered; For:Crohn's disease of small and large intestines with complication; Ordered By:Padma Orozco; Complete Blood Count + Differential; Status:Active; Requested for:19Aug2022; Perform:Lab Services - Lab To Draw (Blood Test); Due:[id number];Ordered; For:Crohn's disease of small and large intestines with complication; Ordered By:Padma Orozco; Comprehensive Metabolic Panel; Status:Active; Requested for:19Aug2022; Perform:Lab Services - Lab To Draw (Blood Test); Due:[id number];Ordered; For:Crohn's disease of small and large intestines with complication; Ordered By:Padma Orozco; Sedimentation Rate, Erythrocyte; Status:Active; Requested for:19Aug2022; Perform:Lab Services - Lab To Draw (Blood Test); Due:[id number];Ordered; For:Crohn's disease of small and large intestines [...] Uveitis; JABARI = N; Verified Transmission to [facility] 1985; Last Updated By: July Gorman; 08/19/2022 10:21:12 AM Hypothyroidism, postsurgical Continue: Levothyroxine Sodium 125 MCG Oral Tablet; TAKE 1 TABLET DAILY DIRECTED Rx By: Wendi Hewitt; Dispense: 90 Days ; #:90 Tablet; Refill: 3;For: Hypothyroidism, postsurgical; JABARI = N; Verified Transmission to [facility] 1985; Last Updated By: July Gorman; 08/19/2022 10:21:12 AM Vitamin D deficiency Continue: Vitamin D 50 MCG (2000 UT) Oral Capsule; Take 1 tablet daily Rx By: Matthew Orozco; Dispense: 0 Days ; #:90 Capsule; Refill: 3;For: Vitamin D deficiency; JAABRI = N; Verified Transmission to [facility] 1985; Last Updated By: July Gorman; [...] as no (more content not included)... Normal [facility] - Chemistry and C hemistry - challengeon 08-19-2022 Albumin BCP dye [Mass/Vol] 4.0 g/dL 3.4 - 5.0 [facility] Work Phone: ALP [Catalytic activity/Vol] 43 U/L 33 - 110 [facility] Work Phone: ALT With P-5'-P [Catalytic activity/Vol] 13 U/L 7 - 45 [employer] [facility] Work Phone: Comment on above: Patients treated wit h Sulfasalazine may generate falsely decreased results for ALT. Anion gap [Moles/Vol] 10 mmol/L 10 - 20 [employer] [facility] Work Phone: AST With P-5'-P [Catalytic activity/Vol] 22 U/L 9 - 39 [facility] Work Phone: Bilirubin [Mass/Vol] 0.5 mg/dL 0.0 - 1.2 [employer] [facility] Work Phone: Calcium [Mass/Vol] 8.9 mg/dL 8.6 - 10.3 [facility] Work Phone: Chloride [Moles/Vol] 104 mmol/L 98 - 107 [facility] Work Phone: [phone] CO2 [Moles/Vol] 28 mmol/L 21 - 32 [facility] Work Phone: Creatinine [Mass/Vol] 0.83 mg/dL See Below [facility] Work Phone: Comment on above: Reference Range: 0.5 0 - 1.05 Glucose [Mass/Vol] 89 mg/dL 74 - 99 [facility] Work Phone: Potassium [Moles/Vol] 3.8 mmol/L 3.5 - 5.3 [facility] Work Phone: Protein [Mass/Vol] 7.8 g/dL 6.4 - 8.2 [facility] Work Phone: Sodium [Moles/Vol] 138 mmol/L 136 - 145 [facility] Work Phone: Urea nitrogen [Mass/Vol] 12 mg/dL 6 - 23 [facility] Work Phone: No Panel Informationon 08-19 >90 >90 [facility] Work Phone: Comment on above: CALCULATIONS OF DANIEL MATED GFR ARE PERFORMED USING THE 2020 CKD-EPI STUDY REFIT EQUATION WITHOUT THE RACE VARIABLE FOR THE IDMS-TRACEABLE CREATININE METHODS.https://jasn.asnjournals.org/content/early/ASN. 5306447656 SEDIMENTATION RATE, ERYTHROC YTEon 08-19-2022 SEDIMENTATION RATE, ERYTHROCYTE 83 mm/h High 0 - 20 [facility] Comment on above: Result Comment: Plea se note new reference ranges as of 09/23/2021. Performed By: #### E SRWS ####[facility] [place], [place] [id number] Sedimentation Rate, Erythroc yteon 08-19-2022 ESR (Bld) [Velocity] 83 mm/h above high threshold 0 - 20 [facility] Work Phone: Comment on above: Please note [...] complication, Uveitis; JABARI = N; [facility] Chart Update Pt with Crohns small and large bowel - sx 2007 - s/p resection of small bowel in 2015. She was on AZN for many years but flared in 2018 and transitioned to Humira every other week 10/05 - increased to weekly due to suboptimal [...] MD; Aug 07 2022 12:03PM EST Normal [facility] Ophthalmic Eye Examon 2022 Ophthalmic Eye Exam DOCUMENT REVIEWED BY : Tom Vasquez DOCUMENT SIGNED ELECTRONICALLY BY Tom Vasquez ON 08/01/2022 12:27:36 PM [id number] [place], [address] THIS DOCUMENT WAS CREATED ON: 08/01/2022 10:17:20 AM BY: Tom correia [id number] Exam Date: Monday, August 01, 2022 PATIENT [...] DATE-TIME: 08/01/2022 8:32:14 AM 08/01/2022 8:32:14 AM NURSE CLINICAL: maren [email or web address] CONFRONTATION VF Full to count fingers Full [...] Clear FUNDUS EXAM: DILATION and NUMBING DROPS: Paulo 2.5% AND Mydriacyl 1% OU 08/01/2022 08:16:26 AM CUP TO DISC: .2 tilted drusen disc .2 tilted OPTIC DISC: [place] VITREOUS: Clear Clear MACULA: Normal [...] Encounter: Susan Vasquez Received for:Tom Vasquez MD Mar 17 2023 12:27PM Eastern Standard Time Normal [facility] CBC AUTO DIFFon 07-03-2022 BASO # 0.1 103/ul Normal 0.0-0.1 [facility] Comment on above: Performed By: #### A ST, ALT, LDH, URIC #### [facility] [address] [place] [address] Dr. Giuseppe Salmeron Basophils/100 WBC (Bld) 0.6 % Normal 0.2-2.0 [facility] Comment on above: Performed By: #### A ST, ALT, LDH, URIC #### [facility] [address] [place] [address] Dr. Giuseppe Salmeron EO # 0.2 103/ul Normal 0.0-0.7 [facility] Comment on above: Performed By: #### A ST, ALT, LDH, URIC #### [facility] [address] [place] [address] Dr. Giuseppe Salmeron Eosinophils/100 WBC (Bld) 1.2 % Normal 0.9-7.0 [facility] Comment on above: Performed By: #### A ST, ALT, LDH, URIC #### [facility] [address] [place] [address] Dr. Giuseppe Salmeron Erythrocyte distribution width (RBC) [Ratio] 13.9 % Normal 11.0-15.0 [facility] Comment on above: Performed By: #### A ST, ALT, LDH, URIC #### [facility] [address] [place] [address] Dr. Giuseppe Salmeron Hematocrit (Bld) [Volume fraction] 38.5 % Normal 36.0-48.0 [facility] Comment on above: Performed By: #### A ST, ALT, LDH, URIC #### [facility] [address] [place] [address] Dr. Giuseppe Salmeron Hemoglobin (Bld) [Mass/Vol] 12.2 g/dL Normal 12.0-16.0 [facility] Comment on above: Performed By: #### A ST, ALT, LDH, URIC #### [facility] [address] [place] [address] Dr. Giuseppe Salmeron IG # 0.05 10e3/ul Critically high 0.00-0.03 [facility] Comment on above: Performed By: #### A ST, ALT, LDH, URIC #### [facility] [address] [place] [address] Dr. Giuseppe Salmeron IG % 0.4 % Normal 0.0-0.5 [facility] Comment on above: Performed By: #### A ST, ALT, LDH, URIC #### [facility] [address] [place] [address] Dr. Giuseppe Salmeron LYMPH # 3.8 103/ul Normal 1.2-3.8 [facility] Comment on above: Performed By: #### A ST, ALT, LDH, URIC #### [facility] [address] [place] [address] Dr. Giuseppe Salmeron Lymphocytes/100 WBC (Bld) 29.1 % Normal 20.5-60.0 [facility] Comment on above: Performed By: #### A ST, ALT, LDH, URIC #### [facility] [address] [place] [address] Dr. Giuseppe Salmeron MANUAL DIFF REQ NO Normal [facility] Comment on above: Performed By: #### A ST, ALT, LDH, URIC #### [facility] [address] [place] [address] Dr. Giuseppe Salmeron MCH (RBC) [Entitic mass] 27.1 pg Normal 26.7-34.0 [facility] Comment on above: Performed By: #### A ST, ALT, LDH, URIC #### [facility] [address] [place] [address] Dr. Giuseppe Salmeron MCHC (RBC) [Mass/Vol] 31.7 g/dL Normal 29.9-35.2 [facility] Comment on above: Performed By: #### A ST, ALT, LDH, URIC #### [facility] [address] [place] [address] Dr. Giuseppe Salmeron MCV (RBC) [Entitic vol] 85.6 fL Normal 81.0-99.0 [facility] Comment on above: Performed By: #### A ST, ALT, LDH, URIC #### [facility] [address] [place] [address] Dr. Giuseppe Salmeron MONO # 0.8 103/ul Normal 0.3-0.8 [facility] Comment on above: Performed By: #### A ST, ALT, LDH, URIC #### [facility] [address] [place] [address] Dr. Giuseppe Salmeron Monocytes/100 WBC (Bld) 5.8 % Normal 1.7-12.0 [facility] Comment on above: Performed By: #### A ST, ALT, LDH, URIC #### [facility] [address] [place] [address] Dr. Giuseppe Salmeron NEUT # 8.2 103/ul Critically high 1.4-6.5 [facility] Comment on above: Performed By: #### A ST, ALT, LDH, URIC #### [facility] [address] [place] [address] Dr. Giuseppe Salmeron Neutrophils/100 WBC (Bld) 62.9 % Normal 43.0-75.0 [facility] Comment on above: Performed By: #### A ST, ALT, LDH, URIC #### [facility] [address] [place] [address] Dr. Giuseppe Salmeron Platelet mean volume (Bld) [Entitic vol] 9.7 fL Normal 9.5-13.5 [facility] Comment on above: Performed By: #### A ST, ALT, LDH, URIC #### [facility] [address] [place] [address] Dr. Giuseppe Salmeron PLT 263 103/ul Normal 150-450 [facility] Comment on above: Performed By: #### A ST, ALT, LDH, URIC #### [facility] [address] [place] [address] Dr. Giuseppe Salmeron RBC 4.50 106/ul Normal 4.20-5.40 [facility] Comment on above: Performed By: #### A ST, ALT, LDH, URIC #### [facility] [address] [place] [address] Dr. Giuseppe Salmeron WBC 13.0 103/ul Critically high 4.0-11.0 [facility] Comment on above: Performed By: #### A ST, ALT, LDH, URIC #### [facility] [address] [place] [address] Dr. Giuseppe Salmeron Covid-19 PCR ([facility])on 06-18 SARS-CoV-2 (COVID-19) RNA MICHAEL+probe Ql (Unsp spec) Not detected Normal NOT DETECTED [facility] Comment on above: Result Comment: When [...] for this test is supported by the Material Crew Supervisor of Health and Human Service's declaration that [...] used). Performed By: #### C VDTBH #### [facility] [address] [place] [address] Dr. Giuseppe Salmeron INFLUENZA A AND B AGon 07-03 INFLUENZA A AG Negative Normal NEGATIVE SEE COMMENT [facility] Comment on above: Performed By: #### I NFLUAB #### [facility] [address] [place] [address] Dr. Giuseppe Salmeron INFLUENZA B AG Negative Normal NEGATIVE SEE COMMENT [facility] Comment on above: Performed By: #### I NFLUAB #### [facility] [address] [place] [address] Dr. Giuseppe Salmeron MONOon 07-03-2022 Monocytes (Bld) [#/Vol] Negative Normal NEGATIVE [facility] Comment on above: Performed By: #### A ST, ALT, LDH, URIC #### [facility] [address] [place], [place] [address] Dr. Giuseppe Salmeron STREPT SCREENon 07-03-2022 STREP SCREEN A Positive Abnormal NEGATIVE [facility] Comment on above: Performed By: #### S SCRN #### [facility] [address] [place], [place] [address] Dr. Giuseppe Salmeron Ophthalmic Eye Examon 2022 Ophthalmic Eye Exam DOCUMENT REVIEWED BY : Tom Vasquez DOCUMENT SIGNED ELECTRONICALLY BY Tom Vasquez ON 06/23/2022 08:35:16 AM [place] [facility] [place], [address] THIS DOCUMENT WAS CREATED ON: 06/23/2022 08:35:09 AM BY: Tom Fontana performed [id number] Exam Date: Thursday, June 23, 2022 PATIENT [...] DATE-TIME: 06/23/2022 8:21:32 AM 06/23/2022 8:21:32 AM NURSE CLINICAL: [id number] CONFRONTATION VF Full to count [...] Clear FUNDUS EXAM: DILATION and NUMBING DROPS: Paulo 2.5% AND Mydriacyl 1% OU 06/23/2022 08:19:24 AM CUP TO DISC: .2 tilted drusen disc .2 tilted OPTIC DISC: [place] sharp [place] VITREOUS: Clear Clear MACULA: Normal reflex Normal reflex VESSELS: Normal Normal PERIPHERY: myopic fundus no lattice or myopic fundus no lattice or tears tears Impression 1 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 Normal [facility] Visiton 05-27-2022 Follow-up visit Diagnoses/Problems Chronic [...] by Problem List Migration; 2013-01-07; Moved to [facility] Apr 09 2013 4:10PM ASCUS of cervix [...] of Thyro (more content not included)... Normal [facility] Tobacco Screening.on 023 Adult depression screening assessment No [facility] Work Phone: Fall risk assessment a) No falls within the last year [facility] Work Phone: Tobacco use status CPHS b) No [facility] Work Phone: Clinic Note - Heme Onc Ed trinity 05-14-2022 Clinic Note - Heme Onc Scheduling [...] Documentation Last Updated: 14-May-2022 08:55 by Renetta Jones) Talon [facility] Clinic Note - Heme Onc-Benig n Heme Follow-upon 05-13-2022 Clinic Note - Heme Onc-Benign Heme Follow-up Patient Visit Information: Visit Type: Benign Heme Follow-up History of Present Illness: ID Statement: LOLA HIGGINBOTHAM is a 31 year old Female Chief Complaint: iron deficiency anemia, follow up Interval History: Ms. Higginbotham is a 27yo female with complicated Crohn's disease since 2011 , was hospitalized at [facility] in 07/2015 (1st since Dx) with [...] said she had to go back to [facility] lab 3 times -she is on [...] multinodular goite (more content not included)... Normal [facility] Clinic Note - Intakeon 05-13 Clinic Note [...] 13-May-2022 14:03 by Karlee Talamantes (PCNA) Normal [facility] Colonoscopyon 05-01-2022 Colonoscopy PATIENTNAME Patient Name: Lola Higginbotham EXAMDATE Procedure Date: 05/01/2022 7:15 AM PATIENTID PATIENTACCOUNTNUM PATIENTDOB Date of : 1990 ADMITTYPE Admit Type: Outpatient PATIENTROOM Site: [facility] Room 2 ETHNICITY Ethnicity: Not or RACE Race: Black or JUMANADR Attending MD: Prem Browning MD, [id number] ENDOPROCEDURENAME Procedure: Colonoscopy INDICATION Indications: Follow-up of Crohn's disease of the small bowel and colon COMORBID Comorbidities: On Humira. PTPROFILE Patient Profile: This is a 31 year old female. Refer to note in patient chart for documentation of history and physical. PRIMARYPROVIDER Providers: Prem Browning MD (Doctor) Gastroenterology, Mulu Valenzuela RN (Nurse) , Emili Cruz, Occupancy Specialist EDREFPROVIDER Referring: Scarlett Martin NP CURRENT_MEDS Medicines: [...] for obstr (more content not included)... Normal [facility] No Panel Informationon 05-01 [email or web address]} [facility] Work Phone: [facility] Work Phone: [facility] Surgical Pathology Depar tmenton 05-01-2022 [facility] Surgical Pathology Department Name OLLA HIGGINBOTHAM Pathologist: JARED CHI MD Date of Procedure: 05/01/2022 Date Received: 05/01/2022 Date Reported 05/09/2022 Submitting Physician: PREM BROWNING MD Location: [facility] Copy To/Referring/Attending: MATTHEW OROZCO D.O. Other External # FINAL DIAGNOSIS A. RIGHT COLON, BIOPSY: --COLONIC MUCOSA, NO SIGNIFICANT HISTOPATHOLOGICAL ABNORMALITIES. B. LEFT COLON, BIOPSY: --COLONIC MUCOSA, NO SIGNIFICANT HISTOPATHOLOGICAL ABNORMALITIES. Electronically Signed Out By JARED CHI MD/JANNETH By the signature on this report, the individual or group listed as making the Final Interpretation/Diagnosis certifies that they have reviewed this case. Diagnostic interpretation performed at [facility] [address] [facility]. [facility] [address] Clinical History: Hx Crohn's Specimens Submitted As: [...] in toto in one cassette. SBS sbs/05/06/2022 [facility] Department of Pathology [address] [place] [address] Normal [facility] Comment on above: Performed By: #### U HCS ####[facility] Surgical Pathology [id number] [facility] [address] CBC AND DIFFERENTIALon 04-24 % AUTOMATED IMMATURE GRAN 0.1 % Normal 0.0 - 0.9 [facility] Comment on above: Result Comment: Zulay ture Granulocyte Count (IG) includes promyelocytes, myelocytes and metamyelocytes but does not include bands. Percent differential counts (%) should be interpreted in the context of the absolute cell counts (cells/L). Performed By: #### C BCDF #### [address] [place] [address] Basophils (Bld) [#/Vol] 0.06 10*3/uL Normal 0.00 - 0.10 [facility] Comment on above: Performed By: #### C BCDF #### [address] [place] [address] Basophils/100 WBC (Bld) 0.6 % Normal 0.0 - 2.0 [facility] Comment on above: Performed By: #### C BCDF #### [address] [place] [address] Eosinophils (Bld) [#/Vol] 0.06 10*3/uL Normal 0.00 - 0.70 [facility] Comment on above: Performed By: #### C BCDF #### [address] [place] [address] Eosinophils/100 WBC (Bld) 0.6 % Normal 0.0 - 6.0 [facility] Comment on above: Performed By: #### C BCDF #### [address] [place] [address] Erythrocyte distribution width (RBC) [Ratio] 13.7 % Normal 11.5 - 14.5 [facility] Comment on above: Performed By: #### C BCDF #### [address] [place] [address] Hematocrit (Bld) [Volume fraction] 38.4 % Normal 36.0 - 46.0 [facility] Comment on above: Performed By: #### C BCDF #### [address] [place] [address] Hemoglobin (Bld) [Mass/Vol] 12.2 g/dL Normal 12.0 - 16.0 [facility] Comment on above: Performed By: #### C BCDF #### [address] [place] [address] Lymphocytes (Bld) [#/Vol] 2.83 10*3/uL Normal 1.20 - 4.80 [facility] Comment on above: Performed By: #### C BCDF #### [address] [place] [address] Lymphocytes/100 WBC (Bld) 27.1 % Normal 13.0 - 44.0 [facility] Comment on above: Performed By: #### C BCDF #### [address] [place] [address] MCHC (RBC) [Mass/Vol] 31.8 g/dL Low 32.0 - 36.0 [facility] Comment on above: Performed By: #### C BCDF #### [address] [place] [address] MCV (RBC) [Entitic vol] 87 fL Normal 80 - 100 [facility] Comment on above: Performed By: #### C BCDF #### [address] [place] [address] Monocytes (Bld) [#/Vol] 0.41 10*3/uL Normal 0.10 - 1.00 [facility] Comment on above: Performed By: #### C BCDF #### [address] [place] [address] Monocytes/100 WBC (Bld) 3.9 % Normal 2.0 - 10.0 [facility] Comment on above: Performed By: #### C BCDF #### [address] [place] [address] Neutrophils (Bld) [#/Vol] 7.06 10*3/uL Normal 1.20 - 7.70 [facility] [place] Comment on above: Performed By: #### C BCDF #### [address] [place] [address] Neutrophils/100 WBC (Bld) 67.7 % Normal 40.0 - 80.0 [facility] [place] Comment on above: Performed By: #### C BCDF #### [address] [place] [address] Platelets (Bld) [#/Vol] 271 10*3/uL Normal 150 - 450 [facility] [place] Comment on above: Performed By: #### C BCDF #### [address] [place] [address] RBC 4.41 x10E12/L Normal 4.00 - 5.20 [facility] [place] Comment on above: Performed By: #### C BCDF #### [address] [place] [address] WBC (Bld) [#/Vol] 10.4 10*3/uL Normal 4.4 - 11.3 [facility] Comment on above: Performed By: #### C BCDF #### [address] [place] [address] Complete Blood Count + Diffe rentialon 04-24-2022 Basophils/100 WBC (Bld) 0.6 % 0.0 - 2.0 [facility] Work Phone: Erythrocyte distribution width (RBC) [Ratio] 13.7 % See Below [facility] Work Phone: Comment on above: Reference Range: 11. 5 - 14.5 Hematocrit (Bld) [Volume fraction] 38.4 % See Below [facility] Work Phone: Comment on above: Reference Range: 36. 0 - 46.0 Hemoglobin (Bld) [Mass/Vol] 12.2 g/dL See Below [facility] Work Phone: Comment on above: Reference Range: 12. 0 - 16.0 Lymphocytes/100 WBC (Bld) 27.1 % See Below [facility] Work Phone: Comment on above: Reference Range: 13. 0 - 44.0 MCHC (RBC) [Mass/Vol] 31.8 g/dL below low threshold See Below [facility] Work Phone: Comment on above: Reference Range: 32. 0 - 36.0 MCV (RBC) [Entitic vol] 87 fL 80 - 100 [facility] Work Phone: Monocytes/100 WBC (Bld) 3.9 % 2.0 - 10.0 [facility] Work Phone: Neutrophils/100 WBC (Bld) 67.7 % See Below [facility] Work Phone: Comment on above: Reference Range: 40. 0 - 80.0 Platelets (Bld) [#/Vol] 271 10*3/uL 150 - 450 [facility] Work Phone: RBC (Bld) [#/Vol] 4.41 {x10E12/L} See Below [facility] Work Phone: Comment on above: Reference Range: 4.0 0 - 5.20 WBC (Bld) [#/Vol] 10.4 10*3/uL 4.4 - 11.3 [facility] Work Phone: Complete Blood Count + Differential 0.06 {x10E9/L} See Below [facility] Work Phone: Comment on above: Reference Range: 0.0 0 - 0.10 Reference Range: 0.0 0 - 0.70 Complete Blood Count + Differential 0.41 {x10E9/L} See Below [facility] Work Phone: Comment on above: Reference Range: 0.1 0 - 1.00 Complete Blood Count + Differential 2.83 {x10E9/L} See Below [facility] Work Phone: Comment on above: Reference Range: 1.2 0 - 4.80 Complete Blood Count + Differential 7.06 {x10E9/L} See Below [facility] Work Phone: Comment on above: Reference Range: 1.2 0 - 7.70 Complete Blood Count + Differential 0.6 % 0.0 - 6.0 [facility] Work Phone: Complete Blood Count + Differential 0.1 % 0.0 - 0.9 [facility] Work Phone: Comment on above: Immature Granulocyte Count (IG) includes promyelocytes, myelocytes and metamyelocytes but does not include bands. Percent differential counts (%) should be interpreted in the context of the absolute cell counts (cells/L). FERRITINon 04-24-2022 FERRITIN 39 ug/L Normal 8 - 150 [facility] Comment on above: Performed By: #### F ERRI #### [address] [place] [address] Ferritin, Serumon 04-24-2022 Ferritin [Mass/Vol] 39 ug/L 8 - 150 [facility] Work Phone: IRON + TIBCon 04-24-2022 % SATURATION 27 % Normal 25 - 45 [facility] Comment on above: Performed By: #### I RONT #### [address] [place] [address] Iron [Mass/Vol] 87 ug/dL Normal 35 - 150 [facility] Comment on above: Performed By: #### I RONT #### [address] [place] [address] TIBC 321 ug/dL Normal 240 - 445 [facility] Comment on above: Performed By: #### I RONT #### [address] [place] [address] Laboratory - Chemistry and C hemistry - challengeon 04-24-2022 Iron [Mass/Vol] 87 ug/dL 35 - 150 -[facility] Work Phone: Iron binding capacity [Mass/Vol] 321 ug/dL 240 - 445 -[employer] [facility] Work Phone: No Panel Informationon 04-24 27 % 25 - 45 -[employer] [facility] Work Phone: Office Visiton 01-21-2022 Follow-up visit [...] worsening symptoms. She no longer works for [employer] but is still at her original job [...] Screening.on 022 Adult depression screening assessment No -[employer] 9435 Work Phone: Fall risk assessment a) No falls within the last year [facility] [employer] 7476 Work Phone: Tobacco use status CPHS b) No MP-Otolaryng ology-Zach [facility]ina 9763 Work Phone: Clinic Note - Heme Onc Sched trinity 12-25-2021 Clinic Note - Heme Onc Scheduling [...] by Scarlett Navarro (Rev Cycl Spec) Normal [facility] Ophthalmic Eye [place] 2021 Ophthalmic Eye Exam DOCUMENT REVIEWED BY : Tom Vasquez DOCUMENT SIGNED ELECTRONICALLY BY Tom Vasquez ON 12/25/2021 12:30:45 PM [place] [id number] [facility] [address], [address] [place], [address] THIS DOCUMENT WAS CREATED ON: 12/25/2021 12:03:56 PM BY: Tom Otoole performed [id number] Exam Date: Saturday, December 25, 2021 PATIENT [...] a Week as directed., NO REFILLS, Evaluate: 30-May-2022 Levothyroxine Sodium 125 MCG Oral Tablet - #90 Tablet, TAKE 1 TABLET DAILY DIRECTED., 3 refills, Evaluate: 25-Oct-2022 Vitamin D 50 MCG (1999) Oral Capsule - #90 Capsule, Take 1 [...] DATE-TIME: 12/25/2021 11:32:51 AM 12/25/2021 11:32:51 AM NURSE CLINICAL: ariana [email or web address] CONFRONTATION VF Full to count [...] tilted drusen disc .2 tilted OPTIC DISC: [place] and sharp [place] and sharp VITREOUS: Clear Clear MACULA: Normal reflex Normal reflex VESSELS: Normal Normal PERIPHERY: myopic (more content not included)... Normal [facility] Clinic Note - Heme Onc-Benig n Heme Follow-upon 12-23-2021 Clinic Note - Heme Onc-Benign Heme Follow-up Patient Visit Information: Visit Type: Benign Heme Follow-up History of Present Illness: ID Statement: LOLA HIGGINBOTHAM is a 31 year old Female Chief Complaint: iron deficiency anemia, follow up Interval History: Ms. Higginbotham is a 27yo female with complicated Crohn's disease since 2011 , was hospitalized at [facility] in 07/2015 (1st since Dx) with [...] said she had to go back to [facility] lab 3 times -she is on [...] associated w (more content not included)... Normal [facility] Clinic Note - Intakeon 12-23 Clinic Note - Intake Patient Visit Information: Visit TypeFollow Up Visit Source of Informationpatient Admission Information: Admission Since Last VisitYes Admission [id number] Admission Reason/DetailsGave Vital Signs: Temp (degrees C)36.3 [...] Weight/Scale Type:Height: 15-Jul-2021 09:5587.9 kg / standing xruoq674.4 cm 11-Jul-2021 14:0886.6 kg / standing iiwos115.4 cm 08-Jul-2021 10:2786.6 kg / standing nvnty708.4 cm SpO2 (%)97 % SpO2 Patient Onroom [...] or > notify clinician1 Electronic Signatures: Nikky Blackman) (Signed 23-Dec-2021 09:46) Authored: Patient Visit Information, Vital Signs, Health Screening, Allergies, Outpatient Medication Profile, Notification, Travel History, Falls, Spiritual/Procedural, Oncology Nutrition Last Updated: 23-Dec-2021 09:46 by Nikky Blackman) Normal [facility] Complete Blood Count + Diffe sauloon 12-23-2021 Basophils/100 WBC (Bld) 0.5 % 0.0 - 2.0 [employer] [facility] [employer] Work Phone: Erythrocyte distribution width (RBC) [Ratio] 14.1 % See Below [employer] [facility] [employer] Work Phone: Comment on above: Reference Range: 11. 5 - 14.5 Hematocrit (Bld) [Volume fraction] 36.9 % See Below [facility] Work Phone: Comment on above: Reference Range: 36. 0 - 46.0 Hemoglobin (Bld) [Mass/Vol] 12.0 g/dL See Below [facility] Work Phone: Comment on above: Reference Range: 12. 0 - 16.0 Lymphocytes/100 WBC (Bld) 33.0 % See Below [facility] Work Phone: Comment on above: Reference Range: 13. 0 - 44.0 MCHC (RBC) [Mass/Vol] 32.5 g/dL See Below [facility] Work Phone: Comment on above: Reference Range: 32. 0 - 36.0 MCV (RBC) [Entitic vol] 85 fL 80 - 100 [facility] Work Phone: Monocytes/100 WBC (Bld) 4.6 % 2.0 - 10.0 [facility] Work Phone: Neutrophils/100 WBC (Bld) 60.3 % See Below [facility] Work Phone: Comment on above: Reference Range: 40. 0 - 80.0 Platelets (Bld) [#/Vol] 275 10*3/uL 150 - 450 [facility] Work Phone: RBC (Bld) [#/Vol] 4.36 {x10E12/L} See Below [employer] [facility] Work Phone: Comment on above: Reference Range: 4.0 0 - 5.20 WBC (Bld) [#/Vol] 9.5 10*3/uL 4.4 - 11.3 [employer] [facility] Work Phone: Complete Blood Count + Differential 0.05 {x10E9/L} See Below [facility] Work Phone: Comment on above: Reference Range: 0.0 0 - 0.10 Complete Blood Count + Differential 0.13 {x10E9/L} See Below [facility] Work Phone: Comment on above: Reference Range: 0.0 0 - 0.70 Complete Blood Count + Differential 0.44 {x10E9/L} See Below [facility] Work Phone: Comment on above: Reference Range: 0.1 0 - 1.00 Complete Blood Count + Differential 3.14 {x10E9/L} See Below [facility] Work Phone: Comment on above: Reference Range: 1.2 0 - 4.80 Complete Blood Count + Differential 5.73 {x10E9/L} See Below [facility] Work Phone: Comment on above: Reference Range: 1.2 0 - 7.70 Complete Blood Count + Differential 1.4 % 0.0 - 6.0 [facility] Work Phone: Complete Blood Count + Differential 0.2 % 0.0 - 0.9 [facility] Work Phone: Comment on above: Immature Granulocyte Count (IG) includes promyelocytes, myelocytes and metamyelocytes but does not include bands. Percent differential counts (%) should be interpreted in the context of the absolute cell counts (cells/L). Ferritin, Serumon 12-23-2021 Ferritin [Mass/Vol] 106 ug/L 8 - 150 [facility] Work Phone: Laboratory - Chemistry and C hemistry - challengeon 12-23-2021 Calprotectin (Stl) [Mass/Mass] 40 ug/g <=49 [facility] Work Phone: Comment on above: REFERENCE INTERVAL: Calprotectin, Fecal by Immunoassay Less than 50 ug/g.........Normal 50-120 ug/g...............Borderline elevated, test should be re-evaluated in 4-6 weeks. 121 ug/g or greater.......ElevatedPerformed By: [employer] [address] [address]Gvmivgcpsr Director: Parth Trevizo MD, PhD Iron [Mass/Vol] 57 ug/dL 35 - 150 [facility] Work Phone: Iron binding capacity [Mass/Vol] 254 ug/dL 240 - 445 [facility] Work Phone: No Panel Informationon 12-23 22 % below low threshold 25 - 45 [facility] Work Phone: C Reactive Protein, Serumon 11-26-2021 CRP [Mass/Vol] 0.70 mg/dL [facility] Work Phone: Comment on above: REF VALUE< 1.00 Folate, Serumon 11-26-2021 Folate [Mass/Vol] 7.7 ng/mL >5.0 [facility] Work Phone: Comment on above: Low <3.4Borderline 3 .4-5.0Normal >5.0. Patients receiving more than 5 mg/day of biotin may have interference in test results. A sample should be taken no sooner than eight hours after previous dose. Contact the testing laboratory for additional information. Laboratory - Chemistry and C hemistry - challengeon 11-26-2021 Albumin BCP dye [Mass/Vol] 4.0 g/dL 3.4 - 5.0 [facility] Work Phone: ALP [Catalytic activity/Vol] 54 U/L 33 - 110 [facility] Work Phone: ALT With P-5'-P [Catalytic activity/Vol] 14 U/L 7 - 45 [facility] Work Phone: Comment on above: Patients treated wit h Sulfasalazine may generate falsely decreased results for ALT. Anion gap [Moles/Vol] 11 mmol/L 10 - 20 [facility] Work Phone: AST With P-5'-P [Catalytic activity/Vol] 20 U/L 9 - 39 [facility] Work Phone: Bilirubin [Mass/Vol] 0.4 mg/dL 0.0 - 1.2 [facility] Work Phone: [phone] Calcium [Mass/Vol] 9.4 mg/dL 8.6 - 10.3 [facility] CENTEREcoSynthetix [facility] Work Phone: Chloride [Moles/Vol] 103 mmol/L 98 - 107 [facility] Work Phone: CO2 [Moles/Vol] 26 mmol/L 21 - 32 [facility] Work Phone: Creatinine [Mass/Vol] 0.80 mg/dL See Below [facility] Work Phone: Comment on above: Reference Range: 0.5 0 - 1.05 Glucose [Mass/Vol] 81 mg/dL 74 - 99 [facility] CENTERVacunekWar[facility] Work Phone: Potassium [Moles/Vol] 3.9 mmol/L 3.5 - 5.3 [facility] CENTERiCAD [facility] Work Phone: Protein [Mass/Vol] 8.0 g/dL 6.4 - 8.2 [facility] CENTERVacunekWar[facility] Work Phone: Sodium [Moles/Vol] 136 mmol/L 136 - 145 -[employer] [facility] Work Phone: Urea nitrogen [Mass/Vol] 9 mg/dL 6 - 23 [facility] Work Phone: Laboratory - Hematology and Cell countson 11-26-2021 Erythrocyte distribution width (RBC) [Ratio] 13.3 % See Below [facility] Work Phone: Comment on above: Reference Range: 11. 5 - 14.5 Hematocrit (Bld) [Volume fraction] 41.7 % See Below [facility] Work Phone: Comment on above: Reference Range: 36. 0 - 46.0 Hemoglobin (Bld) [Mass/Vol] 12.8 g/dL See Below [facility] Work Phone: Comment on above: Reference Range: 12. 0 - 16.0 MCHC (RBC) [Mass/Vol] 30.7 g/dL below low threshold See Below [facility] Work Phone: Comment on above: Reference Range: 32. 0 - 36.0 MCV (RBC) [Entitic vol] 85 fL 80 - 100 [facility] Work Phone: Platelets (Bld) [#/Vol] 306 10*3/uL 150 - 450 [facility] Work Phone: RBC (Bld) [#/Vol] 4.88 {x10E12/L} See Below [facility] Work Phone: Comment on above: Reference Range: 4.0 0 - 5.20 WBC (Bld) [#/Vol] 8.8 10*3/uL 4.4 - 11.3 [facility] Work Phone: No Panel Informationon 11-26 >90 >90 [facility] Work Phone: Comment on above: CALCULATIONS OF DANIEL MATED GFR ARE PERFORMED USING THE 2020 CKD-EPI STUDY REFIT EQUATION WITHOUT THE RACE VARIABLE FOR THE IDMS-TRACEABLE CREATININE METHODS.https://jasn.asnjournals.org/content/early/ASN. 2452222238 Sedimentation Rate, Erythroc yteon 11-26-2021 ESR (Bld) [Velocity] 48 mm/h above high threshold 0 - 20 [facility] Software[facility] Work Phone: Comment on above: Please note new refe rence ranges as of 09/23/2021.Ran on alternate instrumentReference Ranges: Males: 0-15 Females: 0-20 Children under 18: 0-10 T4 - Free Thyroxine, Serumon 11-26-2021 Free T4 [Mass/Vol] 1.18 ng/dL above high threshold See Below [employer] Work Phone: Comment on above: Reference Range: 0.6 1 - 1.12 Thyroxine Free testing is performed using different testing methodology at [facility] than at other [facility]. Direct result comparisons should only be [...] IA Qn (S) <1 0 - 14 [facility] HealthPlan Data Solutionsheartland behavioral health servicesGradFlyC[facility] Clinic [facility] Work Phone: Comment on above: Celiac disease is un likely. False negative Tissue Transglutaminase Antibody, IgA results can occur in approximately 10% of patients with celiac disease, patients already adhering to a gluten-free diet, or patients with IgA deficiency. TSH - Thyroid Stimulating Ho rmone, Serumon 11-26-2021 TSH Qn 0.02 m[IU]/L below low threshold See Below [facility] Work Phone: Comment on above: Reference Range: 0.4 4 - 3.98 TSH testing is performed using different testing methodology at [facility] than at other [facility]. Direct result comparisons should only be made within the same method. Tobacco Screening.on Fall risk assessment a) No falls within the last year [facility] [place] Work Phone: Tobacco use status [facility] b) No -[facility] [employer] Work Phone: Vitamin B12, Serumon Cobalamin (Vitamin B12) [Mass/Vol] 349 pg/mL 211 - 911 -[facility] Work Phone: T4 - Free Thyroxine, Serumon 10-26-2021 Free T4 [Mass/Vol] 1.94 ng/dL above high threshold See Below [employer] Work Phone: Comment on above: Reference Range: 0.6 1 - 1.12 Thyroxine Free testing is performed using different testing methodology at [facility] than at other [facility]. Direct result comparisons should only be [...] Qn m[IU]/L below low threshold See Below [employer] Work Phone: Comment on above: Reference Range: 0.4 4 - 3.98 TSH testing is performed using different testing methodology at [facility] than at other [facility]. Direct result comparisons should only be made within the same method. Tobacco Screening.on Fall risk assessment a) No falls within the last year [facility]-Otolaryng ology-[facility] [employer] Work Phone: Tobacco use status CP b) No MP-Otolaryng ology-[facility] ke [employer] [address] Work Phone: MAGNESIUM DRIP MONITORon Magnesium [Mass/Vol] 6.5 mg/dL Normal 3.6-6.8 [facility] Comment on above: Performed By: #### A ST, ALT, LDH, URIC #### [facility] [address] [place] [address] Dr. Giuseppe Salmeron CBC AUTO DIFFon 10-02-2021 BASO # 0.1 103/ul Normal 0.0-0.1 [facility] Comment on above: Performed By: #### A ST, ALT, LDH, URIC #### [facility] [address] [place] [address] Dr. Giuseppe Salmeron Basophils/100 WBC (Bld) 0.7 % Normal 0.2-2.0 [facility] Comment on above: Performed By: #### A ST, ALT, LDH, URIC #### [facility] [address] [place] [address] Dr. Giuseppe Salmeron EO # 0.1 103/ul Normal 0.0-0.7 [facility] Comment on above: Performed By: #### A ST, ALT, LDH, URIC #### [facility] [address] [place] [address] Dr. Giuseppe Salmeron Eosinophils/100 WBC (Bld) 0.7 % Critically low 0.9-7.0 [facility] Comment on above: Performed By: #### A ST, ALT, LDH, URIC #### [facility] [address] [place] [address] Dr. Giuseppe Salmeron Erythrocyte distribution width (RBC) [Ratio] 13.8 % Normal 11.0-15.0 [facility] Comment on above: Performed By: #### A ST, ALT, LDH, URIC #### [facility] [address] [place] [address] Dr. Giuseppe Salmeron Hematocrit (Bld) [Volume fraction] 38.8 % Normal 36.0-48.0 [facility] Comment on above: Performed By: #### A ST, ALT, LDH, URIC #### [facility] [address] [place] [address] Dr. Giuseppe Salmeron Hemoglobin (Bld) [Mass/Vol] 12.2 g/dL Normal 12.0-16.0 [facility] Comment on above: Performed By: #### A ST, ALT, LDH, URIC #### [facility] [address] [place] [address] Dr. Giuseppe Salmeron IG # 0.02 10e3/ul Normal 0.00-0.03 [facility] Comment on above: Performed By: #### A ST, ALT, LDH, URIC #### [facility] [address] [place] [address] Dr. Giuseppe Salmeron IG % 0.3 % Normal 0.0-0.5 [facility] Comment on above: Performed By: #### A ST, ALT, LDH, URIC #### [facility] [address] [place] [address] Dr. Giuseppe Salmeron LYMPH # 2.6 103/ul Normal 1.2-3.8 [facility] Comment on above: Performed By: #### A ST, ALT, LDH, URIC #### [facility] [address] [place] [address] Dr. Giuseppe Salmeron Lymphocytes/100 WBC (Bld) 35.4 % Normal 20.5-60.0 [facility] Comment on above: Performed By: #### A ST, ALT, LDH, URIC #### [facility] [address] [place] [address] Dr. Giuseppe Salmeron MANUAL DIFF REQ NO Normal [facility] Comment on above: Performed By: #### A ST, ALT, LDH, URIC #### [facility] [address] [place] [address] Dr. Giuseppe Salmeron MCH (RBC) [Entitic mass] 26.5 pg Critically low 26.7-34.0 [facility] Comment on above: Performed By: #### A ST, ALT, LDH, URIC #### [facility] [address] [place] [address] Dr. Giuseppe Salmeron MCHC (RBC) [Mass/Vol] 31.4 g/dL Normal 29.9-35.2 [facility] Comment on above: Performed By: #### A ST, ALT, LDH, URIC #### [facility] [address] [place] [address] Dr. Giuseppe Salmeron MCV (RBC) [Entitic vol] 84.2 fL Normal 81.0-99.0 [facility] Comment on above: Performed By: #### A ST, ALT, LDH, URIC #### [facility] [address] [place] [address] Dr. Giuseppe Salmeron MONO # 0.5 103/ul Normal 0.3-0.8 [facility] Comment on above: Performed By: #### A ST, ALT, LDH, URIC #### [facility] [address] [place] [address] Dr. Giuseppe Salmeron Monocytes/100 WBC (Bld) 7.2 % Normal 1.7-12.0 [facility] Comment on above: Performed By: #### A ST, ALT, LDH, URIC #### [facility] [address] [place] [address] Dr. Giuseppe Salmeron NEUT # 4.2 103/ul Normal 1.4-6.5 [facility] Comment on above: Performed By: #### A ST, ALT, LDH, URIC #### [facility] [address] [place] [address] Dr. Giuseppe Salmeron Neutrophils/100 WBC (Bld) 55.7 % Normal 43.0-75.0 [facility] Comment on above: Performed By: #### A ST, ALT, LDH, URIC #### [facility] [address] [place] [address] Dr. Giuseppe Salmeron Platelet mean volume (Bld) [Entitic vol] 9.5 fL Normal 9.5-13.5 [facility] Comment on above: Performed By: #### A ST, ALT, LDH, URIC #### [facility] [address] [place] [address] Dr. Giuseppe Salmeron PLT 312 103/ul Normal 150-450 [facility] Comment on above: Performed By: #### A ST, ALT, LDH, URIC #### [facility] [address] [place], [place] [id number] Dr. Giuseppe Salmeron RBC 4.61 106/ul Normal 4.20-5.40 [facility] Comment on above: Performed By: #### A ST, ALT, LDH, URIC #### [facility] [address] [place] [address] Dr. Giuseppe Salmeron WBC 7.5 103/ul Normal 4.0-11.0 [facility] Comment on above: Performed By: #### A ST, ALT, LDH, URIC #### [facility] [address] [place] [address] Dr. Giuseppe Salmeron LDHon 10-02-2021 LDH 237 U/L Critically high 81-234 [facility] Comment on above: Performed By: #### A ST, ALT, LDH, URIC #### [facility] [address] [place] [address] Dr. Giuseppe Salmeron PROTIMEon 10-02-2021 INR Coag (PPP) [Relative time] 1.03 {INR} Normal [facility] Comment on above: Performed By: #### A ST, ALT, LDH, URIC #### [facility] [address] [place] [address] Dr. Giuseppe Salmeron INR GUIDELINES SEE BELOW Normal [facility] Comment on above: Result Comment: NATALY RED INR: 2.0 - 3.0 CONDITIONS NOT LISTED BELOW 2.5 - 3.5 FOR PROSTHETIC HEART VALVE REPLACEMENT 2.5 - 3.5 RECURRENT THROMBOSIS Performed By: #### A ST, ALT, LDH, URIC #### [facility] [address] [place] [address] Dr. Giuseppe Salmeron PT Coag (PPP) [Time] 11.1 s Normal 9.0-11.6 [facility] Comment on above: Performed By: #### A ST, ALT, LDH, URIC #### [facility] [address] [place] [address] Dr. Giuseppe Salmeron PTTon 10-02-2021 aPTT Coag (Bld) [Time] 32.4 s Normal 22.3-36.2 [facility] Comment on above: Performed By: #### A ST, ALT, LDH, URIC #### [facility] [address] [address] [address] Giuseppe Mcneil 10-02-2021 AST [Catalytic activity/Vol] 17 U/L Normal 15-37 [facility] Comment on above: Performed By: #### A ST, ALT, LDH, URIC #### [facility] [address] [place] [address] Dr. Giuseppe Salmeron SGPTon 10-02-2021 ALT [Catalytic activity/Vol] 20 U/L Normal 14-59 [facility] Comment on above: Performed By: #### A ST, ALT, LDH, URIC #### [facility] [address] [place] [address] Dr. Giuseppe Salmeron UA (CLEAN/CATCH) FLORAL DESIGNER/MICRO I F IND.on 10-02-2021 Bilirubin Ql (U) Negative Normal NEGATIVE [facility] Comment on above: Performed By: #### A ST, ALT, LDH, URIC #### [facility] [address] [place] [address] Dr. Giuseppe Salmeron Clarity (U) CLEAR Normal CLEAR [facility] Comment on above: Performed By: #### A ST, ALT, LDH, URIC #### [facility] [address] [place] [address] Dr. Giuseppe Salmeron Color (U) LT. YELLOW Normal YELLOW [facility] Comment on above: Performed By: #### A ST, ALT, LDH, URIC #### [facility] [address] [place] [address] Dr. Giuseppe Salmeron Glucose Ql (U) Negative Normal NEGATIVE [facility] Comment on above: Performed By: #### A ST, ALT, LDH, URIC #### [facility] [address] [place] [address] Dr. Giuseppe Salmeron Hemoglobin Ql (U) MODERATE Abnormal NEGATIVE [facility] Comment on above: Performed By: #### A ST, ALT, LDH, URIC #### [facility] [address] [place] [address] Dr. Giuseppe Salmeron Ketones Ql (U) Negative Normal NEGATIVE [facility] Comment on above: Performed By: #### A ST, ALT, LDH, URIC #### [facility] [address] [place] [address] Dr. Giuseppe Salmeron LEUKOCYTES Negative Normal NEGATIVE [facility] Comment on above: Performed By: #### A ST, ALT, LDH, URIC #### [facility] [address] [place] [address] Dr. Giuseppe Salmeron Nitrite Ql (U) Negative Normal NEGATIVE [facility] Comment on above: Performed By: #### A ST, ALT, LDH, URIC #### [facility] [address] [place] [address] Dr. Giuseppe Salmeron pH (U) 6.0 [pH] Normal 5-9 [facility] Comment on above: Performed By: #### A ST, ALT, LDH, URIC #### [facility] [address] [place] [address] Dr. Giuseppe Salmeron SPEC GRAVITY 1.020 Normal 1.005-<=1.0 25 [facility] Comment on above: Performed By: #### A ST, ALT, LDH, URIC #### [facility] [address] [place] [address] Dr. Giuseppe Salmeron UA PROTEIN Negative Normal NEGATIVE/ TRACE [facility] Comment on above: Performed By: #### A ST, ALT, LDH, URIC #### [facility] [address] [place] [address] Dr. Giuseppe Salmeron UR MICRO IND INDICATED Normal [facility] Comment on above: Performed By: #### A ST, ALT, LDH, URIC #### [facility] [address] [place] [address] Dr. Giuseppe Salmeron Urobilinogen Qn (U) 0.2 {Luis'U}/dL Normal 0.2 - 1. 0 [facility] Comment on above: Performed By: #### A ST, ALT, LDH, URIC #### [facility] [address] [place] [address] Dr. Giuseppe Salmeron URIC ACID SERUMon 10-02-2021 Urate [Mass/Vol] 5.6 mg/dL Normal 2.6-6.0 [facility] Comment on above: Performed By: #### A ST, ALT, LDH, URIC #### [facility] [address] [address] [address] Giuseppe Salmeron URINE MICROSCOPIC ONLYon BACTERIA NONE SEEN Normal NONE SEEN [facility] Comment on above: Performed By: #### A ST, ALT, LDH, URIC #### [facility] [address] [address] [address] Giuseppe Salmeron Bacteria identified Cx Nom (U) NOT INDICATED Normal [facility] Comment on above: Performed By: #### A ST, ALT, LDH, URIC #### [facility] [address] [place] [address] Dr. Giuseppe Salmeron CAST NONE SEEN Normal NONE SEEN [facility] Comment on above: Performed By: #### A ST, ALT, LDH, URIC #### [facility] [address] [place] [address] Dr. Giuseppe Salmeron Crystals LM Nom (Urine sed) NONE SEEN Normal NONE SEEN [facility] Comment on above: Performed By: #### A ST, ALT, LDH, URIC #### [facility] [address] [place] [address] Dr. Giuseppe Salmeron Epithelial cells LM Ql (Urine sed) FEW Abnormal NONE SEEN /RARE [facility] Comment on above: Performed By: #### A ST, ALT, LDH, URIC #### [facility] [address] [place] [address] Dr. Giuseppe Salmeron MUCOUS TRACE Abnormal NONE SEEN [facility] Comment on above: Performed By: #### A ST, ALT, LDH, URIC #### [facility] [address] [place] [address] Dr. Giuseppe Salmeron RBC 0-2 Normal 0-2 [facility] Comment on above: Performed By: #### A ST, ALT, LDH, URIC #### [facility] [address] [place] [address] Dr. Giuseppe Salmeron WBC NONE SEEN Normal NONE SEEN [facility] Comment on above: Performed By: #### A ST, ALT, LDH, URIC #### [facility] [address] [address] [address] Giuseppe Salmeron CBC AUTO DIFFon 09-24-2021 BASO # 0.1 103/ul Normal 0.0-0.1 [facility] Comment on above: Performed By: #### C BC #### [facility] [address] [address] [address] Giuseppe Salmeron Basophils/100 WBC (Bld) 0.5 % Normal 0.2-2.0 [facility] Comment on above: Performed By: #### C BC #### [facility] [address] [address] [address] Giuseppe Salmeron EO # 0.1 103/ul Normal 0.0-0.7 [facility] Comment on above: Performed By: #### C BC #### [facility] [address] [place] [address] Dr. Giuseppe Salmeron Eosinophils/100 WBC (Bld) 0.8 % Critically low 0.9-7.0 [facility] Comment on above: Performed By: #### C BC #### [facility] [address] [place] [address] Dr. Giuseppe Salmeron Erythrocyte distribution width (RBC) [Ratio] 14.6 % Normal 11.0-15.0 [facility] Comment on above: Performed By: #### C BC #### [facility] [address] [place] [address] Dr. Giuseppe Salmeron Hematocrit (Bld) [Volume fraction] 33.2 % Critically low 36.0-48.0 [facility] Comment on above: Performed By: #### C BC #### [facility] [address] [place] [address] Dr. Giuseppe Salmeron Hemoglobin (Bld) [Mass/Vol] 10.5 g/dL Critically low 12.0-16.0 [facility] Comment on above: Performed By: #### C BC #### [facility] [address] [place] [address] Dr. Giuseppe Salmeron IG # 0.05 10e3/ul Critically high 0.00-0.03 [facility] Comment on above: Performed By: #### C BC #### [facility] [address] [place] [address] Dr. Giuseppe Salmeron IG % 0.5 % Normal 0.0-0.5 [facility] Comment on above: Performed By: #### C BC #### [facility] [address] [place] [address] Dr. Giuseppe Salmeron LYMPH # 2.3 103/ul Normal 1.2-3.8 [facility] Comment on above: Performed By: #### C BC #### [facility] [address] [place] [address] Dr. Giuseppe Salmeron Lymphocytes/100 WBC (Bld) 22.5 % Normal 20.5-60.0 [facility] Comment on above: Performed By: #### C BC #### [facility] [address] [place] [address] Dr. Giuseppe Salmeron MANUAL DIFF REQ NO Normal [facility] Comment on above: Performed By: #### C BC #### [facility] [address] [place] [address] Dr. Giuseppe Salmeron MCH (RBC) [Entitic mass] 27.1 pg Normal 26.7-34.0 [facility] Comment on above: Performed By: #### C BC #### [facility] [address] [place] [address] Dr. Giuseppe Salmeron MCHC (RBC) [Mass/Vol] 31.6 g/dL Normal 29.9-35.2 [facility] Comment on above: Performed By: #### C BC #### [facility] [address] [place] [address] Dr. Giuseppe Salmeron MCV (RBC) [Entitic vol] 85.8 fL Normal 81.0-99.0 [facility] Comment on above: Performed By: #### C BC #### [facility] [address] [place] [address] Dr. Giuseppe Salmeron MONO # 0.6 103/ul Normal 0.3-0.8 [facility] Comment on above: Performed By: #### C BC #### [facility] [address] [place] [address] Dr. Giuseppe Salmeron Monocytes/100 WBC (Bld) 5.8 % Normal 1.7-12.0 [facility] Comment on above: Performed By: #### C BC #### [facility] [address] [place] [address] Dr. Giuseppe Salmeron NEUT # 7.2 103/ul Critically high 1.4-6.5 [facility] Comment on above: Performed By: #### C BC #### [facility] [address] [place] [address] Dr. Giuseppe Salmeron Neutrophils/100 WBC (Bld) 69.9 % Normal 43.0-75.0 [facility] Comment on above: Performed By: #### C BC #### [facility] [address] [place] [address] Dr. Giuseppe Salmeron Platelet mean volume (Bld) [Entitic vol] 10.6 fL Normal 9.5-13.5 [facility] Comment on above: Performed By: #### C BC #### [facility] [address] [place] [address] Dr. Gisueppe Salmeron PLT 174 103/ul Normal 150-450 [facility] Comment on above: Performed By: #### C BC #### [facility] [address] [place] [address] Dr. Giuseppe Salmeron RBC 3.87 106/ul Critically low 4.20-5.40 [facility] Comment on above: Performed By: #### C BC #### [facility] [address] [place] [address] Dr. Giuseppe Salmeron WBC 10.3 103/ul Normal 4.0-11.0 [facility] Comment on above: Performed By: #### C BC #### [facility] [address] [place] [address] Dr. Giuseppe Salmeron CBC AUTO DIFFon 09-23-2021 BASO # 0.0 103/ul Normal 0.0-0.1 [facility] Comment on above: Performed By: #### A ST, ALT, LDH, URIC #### [facility] [address] [place] [address] Dr. Giuseppe Salmeron Basophils/100 WBC (Bld) 0.3 % Normal 0.2-2.0 [facility] Comment on above: Performed By: #### A ST, ALT, LDH, URIC #### [facility] [address] [place] [address] Dr. Giuseppe Salmeron EO # 0.0 103/ul Normal 0.0-0.7 [facility] Comment on above: Performed By: #### A ST, ALT, LDH, URIC #### [facility] [address] [place] [address] Dr. Giuseppe Salmeron Eosinophils/100 WBC (Bld) 0.3 % Critically low 0.9-7.0 [facility] Comment on above: Performed By: #### A ST, ALT, LDH, URIC #### [facility] [address] [place] [address] Dr. Giuseppe Salmeron Erythrocyte distribution width (RBC) [Ratio] 14.3 % Normal 11.0-15.0 [facility] Comment on above: Performed By: #### A ST, ALT, LDH, URIC #### [facility] [address] [place] [address] Dr. Giuseppe Salmeron Hematocrit (Bld) [Volume fraction] 37.1 % Normal 36.0-48.0 [facility] Comment on above: Performed By: #### A ST, ALT, LDH, URIC #### [facility] [address] [place] [address] Dr. Giuseppe Salmeron Hemoglobin (Bld) [Mass/Vol] 12.2 g/dL Normal 12.0-16.0 [facility] Comment on above: Performed By: #### A ST, ALT, LDH, URIC #### [facility] [address] [place] [address] Dr. Giuseppe Salmeron IG # 0.04 10e3/ul Critically high 0.00-0.03 [facility] Comment on above: Performed By: #### A ST, ALT, LDH, URIC #### [facility] [address] [place] [address] Dr. Giuseppe Salmeron IG % 0.3 % Normal 0.0-0.5 [facility] Comment on above: Performed By: #### A ST, ALT, LDH, URIC #### [facility] [address] [place] [address] Dr. Giuseppe Salmeron LYMPH # 2.6 103/ul Normal 1.2-3.8 [facility] Comment on above: Performed By: #### A ST, ALT, LDH, URIC #### [facility] [address] [place] [address] Dr. Giuseppe Salmeron Lymphocytes/100 WBC (Bld) 22.7 % Normal 20.5-60.0 [facility] Comment on above: Performed By: #### A ST, ALT, LDH, URIC #### [facility] [address] [place] [address] Dr. Giuseppe Salmeron MANUAL DIFF REQ NO Normal [facility] Comment on above: Performed By: #### A ST, ALT, LDH, URIC #### [facility] [address] [place] [address] Dr. Giuseppe Salmeron MCH (RBC) [Entitic mass] 27.7 pg Normal 26.7-34.0 [facility] Comment on above: Performed By: #### A ST, ALT, LDH, URIC #### [facility] [address] [place] [address] Dr. Giuseppe Salmeron MCHC (RBC) [Mass/Vol] 32.9 g/dL Normal 29.9-35.2 [facility] Comment on above: Performed By: #### A ST, ALT, LDH, URIC #### [facility] [address] [place] [address] Dr. Giuseppe Salmeron MCV (RBC) [Entitic vol] 84.3 fL Normal 81.0-99.0 [facility] Comment on above: Performed By: #### A ST, ALT, LDH, URIC #### [facility] [address] [place] [address] Dr. Giuseppe Salmeron MONO # 0.6 103/ul Normal 0.3-0.8 [facility] Comment on above: Performed By: #### A ST, ALT, LDH, URIC #### [facility] [address] [address] [address] Giuseppe Salmeron Monocytes/100 WBC (Bld) 5.1 % Normal 1.7-12.0 [facility] Comment on above: Performed By: #### A ST, ALT, LDH, URIC #### [facility] [address] [address] [address] Giuseppe Salmeron NEUT # 8.2 103/ul Critically high 1.4-6.5 [facility] Comment on above: Performed By: #### A ST, ALT, LDH, URIC #### [facility] [address] [place] [address] Dr. Giuseppe Salmeron Neutrophils/100 WBC (Bld) 71.3 % Normal 43.0-75.0 [facility] Comment on above: Performed By: #### A ST, ALT, LDH, URIC #### [facility] [address] [place] [address] Dr. Giuseppe Salmeron Platelet mean volume (Bld) [Entitic vol] 11.2 fL Normal 9.5-13.5 [facility] Comment on above: Performed By: #### A ST, ALT, LDH, URIC #### [facility] [address] [place] [address] Dr. Giuseppe Salmeron PLT 176 103/ul Normal 150-450 [facility] Comment on above: Performed By: #### A ST, ALT, LDH, URIC #### [facility] [address] [place] [address] Dr. Giuseppe Salmeron RBC 4.40 106/ul Normal 4.20-5.40 [facility] Comment on above: Performed By: #### A ST, ALT, LDH, URIC #### [facility] [address] [place] [address] Dr. Giuseppe Salmeron WBC 11.5 103/ul Critically high 4.0-11.0 [facility] Comment on above: Performed By: #### A ST, ALT, LDH, URIC #### [facility] [address] [place] [address] Dr. Giuseppe Salmeron CULTURE URINEon 09-23-2021 CULTURE URINE Culture Observations : LIGHT GROWTH OF MIXED GENITAL JULY. NO POTENTIAL PATHOGENS SEEN. Normal [facility] Comment on above: Performed By: #### A ST, ALT, LDH, URIC #### [facility] [address] [address] [address] Giuseppe Salmeron DRUG SCREEN RAPID (URINE)on 09-23-2021 AMP Negative Normal NEGATIVE [facility] Comment on above: Performed By: #### A ST, ALT, LDH, URIC #### [facility] [address] [address] [address] Giuseppe Salmeron BAR Negative Normal NEGATIVE [facility] Comment on above: Performed By: #### A ST, ALT, LDH, URIC #### [facility] [address] [place] [address] Dr. Giuseppe Salmeron BUP Negative Normal NEGATIVE [facility] Comment on above: Performed By: #### A ST, ALT, LDH, URIC #### [facility] [address] [place] [address] Dr. Giuseppe Salmeron BZO Negative Normal NEGATIVE [facility] Comment on above: Performed By: #### A ST, ALT, LDH, URIC #### [facility] [address] [address] [address] Giuseppe Salmeron CHRISTIAN Negative Normal NEGATIVE [facility] Comment on above: Performed By: #### A ST, ALT, LDH, URIC #### [facility] [address] [place] [address] Dr. Giuseppe Salmeron CUT-OFFS SEE BELOW Normal [facility] Comment on above: Result Comment: AMP [...] #### A ST, ALT, LDH, URIC #### [facility] [address] [address] [address] Giuseppe Salmeron DRUG CUT HEADER DRUG CLASS TEST SYST EM CUT-OFF CONCENTRATIONS ARE FOLLOWS: Normal [facility] Comment on above: Performed By: #### A ST, ALT, LDH, URIC #### [facility] [address] [address] [address] Giuseppe Salmeron mAMP Negative Normal NEGATIVE [facility] Comment on above: Performed By: #### A ST, ALT, LDH, URIC #### [facility] [address] [address] [address] Giuseppe Salmeron MTD Negative Normal NEGATIVE [facility] Comment on above: Performed By: #### A ST, ALT, LDH, URIC #### [facility] [address] [place] [address] Dr. Giuseppe Salmeron OPI Negative Normal NEGATIVE [facility] Comment on above: Performed By: #### A ST, ALT, LDH, URIC #### [facility] [address] [address] [address] Giuseppe Salmeron OXY Negative Normal NEGATIVE [facility] Comment on above: Performed By: #### A ST, ALT, LDH, URIC #### [facility] [address] [address] [address] Giuseppe Salmeron PCP Negative Normal NEGATIVE [facility] Comment on above: Performed By: #### A ST, ALT, LDH, URIC #### [facility] [address] [address] [address] Giuseppe Salmeron PPX Negative Normal NEGATIVE [facility] Comment on above: Performed By: #### A ST, ALT, LDH, URIC #### [facility] [address] [place] [address] Dr. Giuseppe Salmeron TCA Negative Normal NEGATIVE [facility] Comment on above: Performed By: #### A ST, ALT, LDH, URIC #### [facility] [address] [address] [address] Giuseppe Salmeron THC Negative Normal NEGATIVE [facility] Comment on above: Performed By: #### A ST, ALT, LDH, URIC #### [facility] [address] [address] [address] Giuseppe Salmeron TYPE AND SCREENon 09-23-2021 TYPE AND SCREEN Negative Normal [facility] Comment on above: Performed By: #### A ST, ALT, LDH, URIC #### [facility] [address] [address] [address] Giuseppe Salmeron UA (CLEAN/CATCH) FLORAL DESIGNER/MICRO I F IND.on 09-23-2021 Bilirubin Ql (U) Negative Normal NEGATIVE [facility] Comment on above: Performed By: #### A ST, ALT, LDH, URIC #### [facility] [address] [place] [address] Dr. Giuseppe Salmeron Clarity (U) SL CLOUDY Abnormal CLEAR [facility] Comment on above: Performed By: #### A ST, ALT, LDH, URIC #### [facility] [address] [place] [address] Dr. Giuseppe Salmeron Color (U) LT. YELLOW Normal YELLOW [facility] Comment on above: Performed By: #### A ST, ALT, LDH, URIC #### [facility] [address] [place] [address] Dr. Giuseppe Salmeron Glucose Ql (U) Negative Normal NEGATIVE [facility] Comment on above: Performed By: #### A ST, ALT, LDH, URIC #### [facility] [address] [address] [address] Giuseppe Salmeron Hemoglobin Ql (U) SMALL Abnormal NEGATIVE [facility] Comment on above: Performed By: #### A ST, ALT, LDH, URIC #### [facility] [address] [place] [address] Dr. Giuseppe Salmeron Ketones Ql (U) Negative Normal NEGATIVE [facility] Comment on above: Performed By: #### A ST, ALT, LDH, URIC #### [facility] [address] [place] [address] Dr. Giuseppe Salmeron LEUKOCYTES TRACE Abnormal NEGATIVE [facility] Comment on above: Performed By: #### A ST, ALT, LDH, URIC #### [facility] [address] [place] [address] Dr. Giuseppe Salmeron Nitrite Ql (U) Negative Normal NEGATIVE [facility] Comment on above: Performed By: #### A ST, ALT, LDH, URIC #### [facility] [address] [place] [address] Dr. Giuseppe Salmeron pH (U) 6.5 [pH] Normal 5-9 [facility] Comment on above: Performed By: #### A ST, ALT, LDH, URIC #### [facility] [address] [place] [address] Dr. Giuseppe Salmeron SPEC GRAVITY 1.020 Normal 1.005-<=1.0 25 [facility] Comment on above: Performed By: #### A ST, ALT, LDH, URIC #### [facility] [address] [place] [address] Dr. Giuseppe Salmeron UA PROTEIN Negative Normal NEGATIVE/ TRACE [facility] Comment on above: Performed By: #### A ST, ALT, LDH, URIC #### [facility] [address] [place] [address] Dr. Giuseppe Salmeron UR MICRO IND INDICATED Normal [facility] Comment on above: Performed By: #### A ST, ALT, LDH, URIC #### [facility] [address] [place] [address] Dr. Giuseppe Salmeron Urobilinogen Qn (U) 0.2 {Luis'U}/dL Normal 0.2 - 1. 0 [facility] Comment on above: Performed By: #### A ST, ALT, LDH, URIC #### [facility] [address] [place] [address] Dr. Giuseppe Salmeron URINE MICROSCOPIC ONLYon BACTERIA SMALL Abnormal NONE SEEN [facility] Comment on above: Performed By: #### A ST, ALT, LDH, URIC #### [facility] [address] [place] [address] Dr. Giuseppe Salmeron Bacteria identified Cx Nom (U) INDICATED Normal [facility] Comment on above: Performed By: #### A ST, ALT, LDH, URIC #### [facility] [address] [place] [address] Dr. Giuseppe Salmeron CAST NONE SEEN Normal NONE SEEN [facility] Comment on above: Performed By: #### A ST, ALT, LDH, URIC #### [facility] [address] [place] [address] Dr. Giuseppe Salmeron Crystals LM Nom (Urine sed) NONE SEEN Normal NONE SEEN [facility] Comment on above: Performed By: #### A ST, ALT, LDH, URIC #### [facility] [address] [place] [address] Dr. Giuseppe Salmeron Epithelial cells LM Ql (Urine sed) RARE Normal NONE SEEN /RARE [facility] Comment on above: Performed By: #### A ST, ALT, LDH, URIC #### [facility] [address] [place] [address] Dr. Giuseppe Salmeron MUCOUS NONE SEEN Normal NONE SEEN [facility] Comment on above: Performed By: #### A ST, ALT, LDH, URIC #### [facility] [address] [place] [address] Dr. Giuseppe Salmeron RBC 0-2 Normal 0-2 [facility] Comment on above: Performed By: #### A ST, ALT, LDH, URIC #### [facility] [address] [place] [address] Dr. Giuseppe Salmeron WBC 2-5 Abnormal NONE SEEN [facility] Comment on above: Performed By: #### A ST, ALT, LDH, URIC #### [facility] [address] [place] [address] Dr. Giuseppe Salmeron [facility] SARS-CoV-2 (COVID-19) RNA MICHAEL+probe Ql (Unsp spec) Not detected Normal NOT DETECTED [facility] Comment on above: Result Comment: This test is not yet approved or cleared by the [place] FDA. When there are no FDA-approved or cleared tests available, and other criteria are met, FDA can make tests available under an emergency access mechanism called an Emergency Use Authorization (EUA). The EUA for this test is supported by the [place] of Health and Human Service's (HHS's) declaration [...] consistent with SARS-CoV-2. Performed By: #### C [facility] #### [facility] [address] [place] [address] Dr. Giuseppe Salmeron Complete Blood Count + Diffe [facility]cencioselect [facility], avonon 09-09-2021 Basophils/100 WBC (Bld) 0.2 % 0.0 - 2.0 [facility] Work Phone: Erythrocyte distribution width (RBC) [Ratio] 14.4 % See Below [facility] Work Phone: Comment on above: Reference Range: 11. 5 - 14.5 Hematocrit (Bld) [Volume fraction] 36.8 % See Below [facility] Work Phone: Comment on above: Reference Range: 36. 0 - 46.0 Hemoglobin (Bld) [Mass/Vol] 11.9 g/dL below low threshold See Below [facility] Work Phone: Comment on above: Reference Range: 12. 0 - 16.0 Lymphocytes/100 WBC (Bld) 22.5 % See Below [facility] Work Phone: Comment on above: Reference Range: 13. 0 - 44.0 MCHC (RBC) [Mass/Vol] 32.3 g/dL See Below [facility] Work Phone: Comment on above: Reference Range: 32. 0 - 36.0 MCV (RBC) [Entitic vol] 85 fL 80 - 100 [facility] Work Phone: Monocytes/100 WBC (Bld) 5.2 % 2.0 - 10.0 [facility] Work Phone: Neutrophils/100 WBC (Bld) 71.6 % See Below [facility] Work Phone: Comment on above: Reference Range: 40. 0 - 80.0 Platelets (Bld) [#/Vol] 209 10*3/uL 150 - 450 [facility] Work Phone: RBC (Bld) [#/Vol] 4.35 {x10E12/L} See Below [facility] Work Phone: Comment on above: Reference Range: 4.0 0 - 5.20 WBC (Bld) [#/Vol] 10.6 10*3/uL 4.4 - 11.3 [facility] Work Phone: Complete Blood Count + Differential 0.02 {x10E9/L} See Below [facility] Work Phone: Comment on above: Reference Range: 0.0 0 - 0.10 Reference Range: 0.0 0 - 0.70 Complete Blood Count + Differential 0.55 {x10E9/L} See Below [facility] Work Phone: Comment on above: Reference Range: 0.1 0 - 1.00 Complete Blood Count + Differential 2.38 {x10E9/L} See Below [facility] Work Phone: Comment on above: Reference Range: 1.2 0 - 4.80 Complete Blood Count + Differential 7.57 {x10E9/L} See Below [facility] Work Phone: Comment on above: Reference Range: 1.2 0 - 7.70 Complete Blood Count + Differential 0.2 % 0.0 - 6.0 [facility] Work Phone: Complete Blood Count + Differential 0.3 % 0.0 - 0.9 [facility] Work Phone: Comment on above: Immature Granulocyte Count (IG) includes promyelocytes, myelocytes and metamyelocytes but does not include bands. Percent differential counts (%) should be interpreted in the context of the absolute cell counts (cells/L). Ferritin, Serumon 09-09-2021 Ferritin [Mass/Vol] 167 ug/L above high threshold 8 - 150 [facility] Work Phone: Laboratory - Chemistry and C hemistry - challengeon 09-09-2021 Iron [Mass/Vol] 76 ug/dL 35 - 150 [facility] Work Phone: Iron binding capacity [Mass/Vol] 311 ug/dL 240 - 445 [facility] Work Phone: No Panel Informationon 09-09 24 % below low threshold 25 - 45 [facility] Work Phone: C Reactive Protein, Serumon 09-03-2021 CRP [Mass/Vol] 1.27 mg/dL Abnormal [facility] Work Phone: Comment on above: REF VALUE< 1.00 Folate, Serumon 09-03-2021 Folate [Mass/Vol] 10.5 ng/mL >5.0 [facility] Work Phone: Comment on above: Low [...] NEGATIVE FOR GROUP B STREPTOCOCCUS. Normal [facility] Comment on above: Performed By: #### A ST, ALT, LDH, URIC #### [facility] [address] [place], [place] [address] Dr. Giuseppe Salmeron Sedimentation Rate, Erythroc yteon 09-03-2021 ESR (Bld) [Velocity] 53 mm/h above high threshold 0 - 20 -[facility] Work Phone: [phone] T-SPOT. TBon 09-03-2021 T-SPOT. TB Passed [facility] Work Phone: T-SPOT. TB 0 1 [facility] Work Phone: T-SPOT. TB Negative See Below [facility] Work Phone: Comment on above: [...] 1.20 ng/dL above high threshold See Below [facility] [address] Work Phone: Comment on above: Reference Range: 0.6 1 - 1.12 Thyroxine Free testing is performed using different testing methodology at [facility] than at other [facility]. Direct result comparisons should only be [...] 0.04 m[IU]/L below low threshold See Below [employer] [facility] [employer] Work Phone: Comment on above: Reference Range: 0.4 4 - 3.98 TSH testing is performed using different testing methodology at [facility] than at other [facility]. Direct result comparisons should only be made within the same method. Tobacco Screening.on Fall risk assessment a) No falls within the last year [employer] Work Phone: Tobacco use status CPHS b) No [facility] [employer] Work Phone: Vitamin B12, Serumon Cobalamin (Vitamin B12) [Mass/Vol] 153 pg/mL below low threshold 211 - 911 [facility] Work Phone: T4 - Free Thyroxine, Serumon 08-21-2021 Free T4 [Mass/Vol] 1.30 ng/dL above high threshold See Below [employer] Work Phone: Comment on above: Reference Range: 0.6 1 - 1.12 Thyroxine Free testing is performed using different testing methodology at [facility] than at other [facility]. Direct result comparisons should only be [...] 0.02 m[IU]/L below low threshold See Below [employer] Work Phone: Comment on above: Reference Range: 0.4 4 - 3.98 TSH testing is performed using different testing methodology at [facility] than at other [facility]. Direct result comparisons should only be made within the same method. PAP ACOG PANEL 2: 30 to 65on 07-24-2021 . . Normal [facility] Comment on above: Result Comment: Perf ormed at: WB Performed By: #### A ST, ALT, LDH, URIC #### [facility] [address] [place] [address] [address] Giuseppe Salmeron Age Gdln ACOG Testing 30-65 Normal [facility] Comment on above: Performed By: #### A ST, ALT, LDH, URIC #### [facility] [address] [address] [address] Giuseppe Salmeron DIAGNOSIS: Comment [facility] Comment on above: Result Comment: NEGA TIVE FOR INTRAEPITHELIAL LESION OR MALIGNANCY. Performed at: WB Performed By: #### A ST, ALT, LDH, URIC #### [facility] [address] [address] [address] Giuseppe Salmeron HPV Aptima QNSPAP [facility] Comment on above: Result Comment: Test not performed. Liquid based PAP vial contained insufficient specimen for molecular testing; likely a consequence of insufficient cellularity in original collection. This nucleic acid amplification test detects fourteen high-risk HPV types (16,18,31,33,35,39,45,51,52,56,58,59,66,68) without differentiation. Performed at: =G Performed By: #### A ST, ALT, LDH, URIC #### [facility] [address] [address] [address] Giuseppe Salmeron Methodology: Comment [facility] Comment on above: Result Comment: This liquid based ThinPrep(R) pap test was screened with the use of an image guided system. Performed at: WB Performed By: #### A ST, ALT, LDH, URIC #### [facility] [address] [place] [address] Dr. Giuseppe Salmeron Note: Comment Normal [facility] Comment on above: Result Comment: The Pap [...] #### A ST, ALT, LDH, URIC #### [facility] [address] [address] [address] Giuseppe Salmeron Performed by: Comment Normal [facility] Comment on above: Result Comment: Bertha Natarajan, Parachute Panel Joiner (ASCP) Performed at: WB Performed By: #### A ST, ALT, LDH, URIC #### [facility] [address] [address] [address] Giuseppe Salmeron Specimen adequacy: Comment Normal [facility] Comment on above: Result Comment: Sati sfactory for evaluation. No endocervical component is identified. Performed at: WB Performed By: #### A ST, ALT, LDH, URIC #### [facility] [address] [address] [address] Giuseppe Salmeron CHLAMYDIA/GONOCOCCUS MICHAEL (SW AB/URINE/PAPon 07-23-2021 Chlamydia trachomatis, MICHAEL Negative Normal Negative [facility] Comment on above: Performed By: #### C T/NGNA #### [facility] [address] [address] [address] Giuseppe Salmeron Neisseria gonorrhoeae, MICHAEL Negative Normal Negative [facility] Comment on above: Performed By: #### C T/NGNA #### [facility] [address] [place] [address] Dr. Giuesppe Salmeron Tobacco Screening.on 022 Tobacco use status CPHS c) Screening not indicated MP-Ot olaryng ology-[facility] [address] Work Phone: T4 - Free Thyroxine, Serumon 07-04-2021 Free T4 [Mass/Vol] 1.11 ng/dL See Below MG-End ocrino logy-[facility] [address] Work Phone: Comment on above: Reference Range: 0.6 1 - 1.12 Thyroxine Free testing is performed using different testing methodology at [facility] than at other [facility]. Direct result comparisons should only be [...] blood draw. TSH - Thyroid Stimulating Ho Agata hardwickon 07-04-2021 TSH Qn 0.08 m[IU]/L below low threshold See Below [facility]ocrino [facility] [employer] Work Phone: Comment on above: Reference Range: 0.4 4 - 3.98 TSH testing is performed using different testing methodology at [facility] than at other [facility]. Direct result comparisons should only be made within the same method. Complete Blood Count + Diffe rentialon 06-22-2021 Basophils/100 WBC (Bld) 0.3 % 0.0 - 2.0 [facility]ocrino log[facility] [employer] Work Phone: Erythrocyte distribution width (RBC) [Ratio] 13.2 % See Below [facility]ino [facility] [employer] Work Phone: Comment on above: Reference Range: 11. 5 - 14.5 Hematocrit (Bld) [Volume fraction] 35.7 % below low threshold See Below [facility]ocrino [facility] [employer] Work Phone: Comment on above: Reference Range: 36. 0 - 46.0 Hemoglobin (Bld) [Mass/Vol] 11.4 g/dL below low threshold See Below [facility] [employer] Work Phone: Comment on above: Reference Range: 12. 0 - 16.0 Lymphocytes/100 WBC (Bld) 18.9 % See Below [facility] [employer] Work Phone: Comment on above: Reference Range: 13. 0 - 44.0 MCHC (RBC) [Mass/Vol] 31.9 g/dL below low threshold See Below [facility] [employer] Work Phone: Comment on above: Reference Range: 32. 0 - 36.0 MCV (RBC) [Entitic vol] 86 fL 80 - 100 [facility] [employer] [address] Work Phone: Monocytes/100 WBC (Bld) 4.7 % 2.0 - 10.0 [facility]-Endocrino logy-[facility] [employer] [address] Work Phone: Neutrophils/100 WBC (Bld) 75.5 % See Below [facility]-Endocrino log[facility] [employer] [address] Work Phone: Comment on above: Reference Range: 40. 0 - 80.0 Platelets (Bld) [#/Vol] 235 10*3/uL 150 - 450 [facility] [employer] Work Phone: RBC (Bld) [#/Vol] 4.13 {x10E12/L} See Below MG -[facility]ocrino [facility] [employer] Work Phone: Comment on above: Reference Range: 4.0 0 - 5.20 WBC (Bld) [#/Vol] 10.3 10*3/uL 4.4 - 11.3 MG-En docrino [facility] [employer] Work Phone: Complete Blood Count + Differential 0.03 {x10E9/L} See Below [facility] [employer] Work Phone: Comment on above: Reference Range: 0.0 0 - 0.10 Complete Blood Count + Differential 0.02 {x10E9/L} See Below [facility] [employer] Work Phone: Comment on above: Reference Range: 0.0 0 - 0.70 Complete Blood Count + Differential 0.48 {x10E9/L} See Below [facility] [employer] Work Phone: Comment on above: Reference Range: 0.1 0 - 1.00 Complete Blood Count + Differential 1.95 {x10E9/L} See Below [facility] [employer] Work Phone: Comment on above: Reference Range: 1.2 0 - 4.80 Complete Blood Count + Differential 7.78 {x10E9/L} above high threshold See Below [facility] [employer] Work Phone: Comment on above: Reference Range: 1.2 0 - 7.70 Complete Blood Count + Differential 0.2 % 0.0 - 6.0 [facility] [employer] Work Phone: Complete Blood Count + Differential 0.4 % 0.0 - 0.9 [facility] [employer] Work Phone: Comment on above: Immature Granulocyte Count (IG) includes promyelocytes, myelocytes and metamyelocytes but does not include bands. Percent differential counts (%) should be interpreted in the context of the absolute cell counts (cells/L). Complete Blood Count + Differential 0.0 {/100_WBC} 0.0 - 0.0 [facility] [employer] Work Phone: Ferritin, Serumon 06-22-2021 Ferritin [Mass/Vol] 27 ug/L 8 - 150 [facility]En d[facility]ino [facility] [employer] Work Phone: Laboratory - Chemistry and C hemistry - challengeon 06-22-2021 Iron [Mass/Vol] 52 ug/dL 35 - 150 [facility]-Endocr chin [facility] [employer] Work Phone: Iron binding capacity [Mass/Vol] 340 ug/dL 240 - 445 [facility] [employer] Work Phone: No Panel Informationon 06-22 15 % below low threshold 25 - 45 [facility] [employer] Work Phone: T4 - Free Thyroxine, Serumon 05-25-2021 Free T4 [Mass/Vol] 1.28 ng/dL above high threshold See Below [facility] [employer] Work Phone: Comment on above: Reference Range: 0.6 1 - 1.12 Thyroxine Free testing is performed using different testing methodology at [facility] than at other system [facility]. Direct result comparisons should only be made [...] blood draw. TSH - Thyroid Stimulating Ho mulu, Serumon 05-25-2021 TSH Qn 0.12 m[IU]/L below low threshold See Below [facility] [employer] [address] Work Phone: Comment on above: Reference Range: 0.4 4 - 3.98 TSH testing is performed using different testing methodology at [facility] than at other [facility]. Direct result comparisons should only be made within the same method. Coding Summary.on 05-06-2021 Coding Summary. [id number] Gh0bWw+ PGhlYWQ+NT1GBOPwT59vnSTpjD5 LN9bDPD3OAQKDZHVEPL9JDW3qiP R5QNisG0FpgjAr AddseOWgTB90UBg2AVI9wKapKLj ocN8vwQFqP6w6WaKxNI14gL88NI fpMMDxGyW2GhRqglehaDKi M5imTrEsmIIzCvh+PHRhYmxlIHd xUWChVEycHWMuUpPjcHvaVF1lIz 9yZGVyLWNvbGxhcHNlOiBj s7uwXEReOFcuJW1crRloY8DytZM 8FFJsz5k2Ms96yOF+HWEfDVD9gL pjBXoif086SkNtj1kmPQR3 wFNaJNmnYYV1A40dm5N0JCYfPOA tVMB8hKP0nW3aqCvziiahD5NmmC VfJbK0SSE7hGDxiF5klOpi tvxeaI0lBmq+R30EFK7HGKGOFV9 WXho3N1ZlEkqgtWV+IB54KAPdLE 41eBIsyHAtg9gblUu7GzNy JJYeLUJ1hMnuYZmdy9RtGCDrW83 xdCQjs1N2XTOjfXybbFSvHmDfyR E7xS9lQMwjuwzxr5hepsdj Ilwnw9qsiw53kD42R45mVHisPPA kROL6RTJlTVQwrNahuo9bnC3rYl 8+TTuhr0mlu9usrMa8LoQu ZHGavrUpqGmbAGB4n3OdIo25N5T puXdts1AoKzv3xs16xZVke0J8sP P9HDviOYKjoZ6iPMyyAoY0 LQVgSqQghC81kUYkONneTm4zaIh zwMuvJJ1mNCCgiyqbIFSqpB9fZD OxfAKxfEktWL6kUAVdmhfz t633HsMxWZT1QFWtiQUdS9MhgN7 gIiCjUKUwNRRwE6TbuWHpBKepO7 62IYgxAnN4HVXbvtOrY0Eq ILQhoJrrCtC9z0R3Ak1Nb1Ubygi kYJS6UQkyNRLcAhSiZbUsEtT7S3 AhWfk4YPLmdQazHO1fE0Jv VVWeojcuylfpmJK1RNRxDTXwjY8 0bOCuGMhsIc0lf2A6n022UMOrON LquT23Jn2vgIeoHXGruMUW hL3huepur6vkcsqcTsIuLRViQDh 2SRr0YUUevDviWhCoXNF2WfK9ZD F0cKXxrA5jkTyeuuvzlR0o Oyc+E46twI5lOLS4ZFY4zldfENM iphZrXM73KW60F1EqIxomgDTuvF U+CUGloaTeqNmfIS9dVbQy m4dlj7MtPVseR5PtUQKtLLbbEdx 2JOVfWRI0qON8cB9zOWUiMJpcp9 V7sEP1Z7CbiwMywz7qe5rb KYWpRHkgC30nyMPyk1P8XNImtTC 1NCMnmZyuBfSfhO28Pce+PGNvbG lvy0VrMwrxc8txu0eqzCf2 BrKgVJCjfoSoyVsjHXB3i0RwHa4 9K68pBEgeXKElBNEnIEJiNQIctW ymxi8oqH6cZw4+PGNvbCB3 gUS3sH9wNZDtPyD6OYhmN758MqD ffVRbCpqxy7ckn0gpvFp1ZmNeAC HjyzGvoUzhXLV6r6XxCz08 M46lIUqrYSWpJZQbBVRnADLrjSm wta6tgG3qVq9+GG4vc0ervo54kI 48dHI+RLKqYCW6wOwdJYvz YONzsD6cFCkxOkA7ICPrPfRknZ9 7cUOpQNsuEs2vqQotvRjmJE0fYG Keslwez734PxZzj3wcRKPb uHWuCQtaNVF0W24fs0X5JTUeBTI vVZW1eSF3mH5dbMnhtkfokJAayX apcaKgxUgoDNseRKljG268 IHRvcDsnPlBhdGllbnQgTmFtZTo 5F9UqMxo5PCJwzWlxMA2orWHjCY jcBz1saJgwdSjtCG8qYNNw izrau384EyUqj2pfUDLjrBCdUUh iJYG5U82sp8N8ALRvAWRwORT4qJ Z8zP1ylXtwhcmtzDOhdYri raRbnHujHXynQIgoC992EBBnnSp xBvEjlxSeHBPxaTG6SQ48AE63bJ Age7E0dSF3S0LyQDDadsec xaycvEA1ABKaRXFgzR44Vi4clJu fIb5yRAKcUDF5OJHgpZLvD2OnhK 6aTnQcGFIoRQXiH0KqzUOs UMfjF282NRdlGjM2ZKGysvTyV9O gJXTpxQhiXmP5z2O7Lr5EE8H1EY 80JR41aGPft7W5gGA3I8Dg RRXeklkkawejcHF0ZKUjMSZbnL1 9Qi2xeXnaUt6aNOXwHZQ8RWNafK NaV9LtrD8oDiBqAPZcJZOh U3WohEJdDYkyN106WYbfFtO0ERT gwaOiI3IsOJClcBmpPrM6u5E9Il 4KARd2CJ48CW57fESok4S8 qFD5P6XoAERjizivlkfrnKM9LMF fYTCupN03Zk5meAtxXl7iEPBcST Q4SYHhvMSpB1NdpZ7lXmAl LRPjUDFqB2IolDDtVQgkO552IGs mCuP3MYLbpkIeY2OfHDQkdCelNa F7d6B1Hd8WBSQwSM11ESS4 zOP4ML08XM30I0DuYcraoFLbsGG +PHRhYmxlIHdpZHRoPScxMDAlJy EcrTfwID6tDw2fWPAhYLYj uKlisPMeDhIky8epVPBeSTbxRS4 jnZcfT1SsmEY8HQGzw3z8Mu63J8 5wP8YejVS+DSQntQV5pJY5 lB7bStNvBaH0JUxaF448RaLddIN iBbyiy7oeb4tovEg4StC4KCWvas VqzPvrMIH1j5AfYp00D55c IHdpZHRoPSIxNSUiIHZhbGlnbj0 ykX7gUg6+BFEujOF1kUL4lC8mZv TvCuO7IWsaQ575CjJnnIOv Oltjv8zta2mbdZw8BbYvXOZbfrA bsZmwAHK7j2KcIz36T8QehTfrg2 BsAla8oo81jYFtk2S6lMN7 U0JsVEWjmsqefBEchLobLQ8pZYF fvrurGOAjvM8zRKFoX1m2LyWtWk L1JZvcD5HlrkC4KINsmCNm YUkbWAB1B00fd7C4QNJrISNyEVQ 7iVQ5hQ6qfFvwleutyTOhwOdxui ErnBvjXDtrJDcuN451TRKq pSapWKZzqE3gSQMuyYXwpLkvWY7 nRNGkfeoaRasCTU4XU62mEZdCUa 2GRpKLJQK8O4VgXij0RLVh pDhhRT7mqOSdWGtvAs5tlGjtiCf eTL8mWKRfqlpjLZXobX5hGEEueD JmtGbxPV6fFAHyfqahx217 UpVuXDA6UVOxvEYfQ5GudE9nPzD pMXNrGQVdH4KgqRAwDLluV187LI gnCfB7LTSvaqWwU1ByAXVr zEmoJvX9c7R8Xz7lNF7oIv4mQXg qKJ50UE91yZEvr6I2cKJ9F5VdTD MsgtjnzmanvPD2VZJjRGGk nV03pQFdLZsoPs9oi9A2r902DIK pVCNybI90Ff3buRlyBVPbcNZYjC 0gslgyo0qkvfcuZxJiNNOu ATd1BNj0LOFynHwuCdTfHTO4PuY 6DUC7oOObfP2ozDuvyiojlO4rRh c+LoJmJHWgvjK5J8InGwj8 JKPucJkwVY2pgCVnNBmzKv1acJe koCrfDQ3kYKOevlasDJIprI0vOL RfqETabBkrXR6tFTWocbit x596GxCvFJP3LYSwrJWsD9XtkB7 bJkOvENGkWPRkB2HkiQAbEXevJ0 54BZqdJkW3CKFnecViF3Oc VDMdxWspIxD8u0H9Mj0DVM2vpIO 8Z5JpQrg7XQDspVxmHJ0qgALvLO gmMk1yvCgkrFbmWI7tBDPh jftkWGEsxS4zBYEqgJZffPseFD3 wUHKugxefb760AkZkCAA2YSDvlM CnP5GhwU9lDjCnLSQgESHe H3ByxKUgHLtvM143BNpfMjN3ERS xngEvM0JwJFUbrDdmCmY5y5I8Tt 8JvGXaVCCuHD54OV92BO36 R2EdLbuccASvfWJ+PHRhYmxlIHd qUHBkLMzgDVDmIbNwqTutZX6tFd 9yZGVyLWNvbGxhcHNlOiBj k6lpFUKqUInySG7mqZojU0LocVX 0GBMkn0i6Rr48T57iK2XzuWF+PG AdgGD1bIN8qP7bTgJyDoJ3 HBqvC148ZhLdnXUfRueug0fww6v swMu6AyEtSYXaczCsqDmgCIH6i4 ZfBy59M13zWOiwGJXkOILq OMNgZMAniQebte4xlV9lTi8+PGN aaSW8iKX3eW0lDiXzTgE8PNbrD6 83YrVnbKWpSyhfO24nP0Nz dXA+VKBzYoc9AEWesVcdAD8qyZH zOChoGl7tMRL3JqVtIqRlOSypY9 IbSOZeikqbjicplOQ6ZYPg SKVkxZ59Hi5lbGepSp9fAGZpLOG 4SNJnkBDfD8XvsH1xMcYfEHCyIE BsD1XpwRQzLYgdL869DKwn TfO5FIHjlrSfD5DzRWQliXckXyP 7r0V8Qt6CvWurbNFtNK7hZdYsCH w8K4WmYrd7YKEipLovJL2i uHUxBRvgJp0apKblzEmqUB5wRSS evimau980OfIwb0fqYNOapRLdUA ykXRN7M08lr2N0TYTgCIOj ETA6dHO5dQ7emGvswszhxHCofPs vfvLzoSetDGzsGAjmZ074PAEocE hyDxRARbd4R1DeVmo3WLTw yLazJG6sgSLzWKewMu2atWfpoSo oZC3aSJImwtwyt586QcWrg8eyBP UydADlMKfmXFQ6M01nf8L9 ZUZwOXPcJWD6tMZ9cV3ncAvaoyf gbGVmdDsgdmVydGljYWwtYWxpZ2 30IHIxeLlqQj3OAvm3X8Qz Qxj8NFIfiTrnVJ3jtINfSUqhCd8 ljRcteQfuQK1gDACtfqmxt313Yb Fpz7vjDXOvrLZxNZayREI0 V90pm7V3XKMoTLWeTVL2gJB0nC4 hbGlnbjogbGVmdDsgdmVydGljYW opZAvgS932IYBloRivVnRb eWVyOjwvdGQ+WJ45ut57C1GiGtd eZcf5YFXlQWC4pIX8fL9bTVAiLZ vkk0P9mIE9P8LlpvRmqk6x b2xs (more content not included)... Normal [facility] T3 - Free Triiodothyronine, Serumon 04-24-2021 Free T3 [Mass/Vol] 2.6 pg/mL 2.3 - 4.2 [facility] [employer] Work Phone: T4 - Free Thyroxine, Serumon 04-24-2021 Free T4 [Mass/Vol] 1.42 ng/dL See Below [facility] Work Phone: Comment on above: Reference Range: 0.7 8 - 1.48 Thyroxine Free testing is performed using different testing methodology at [facility] than at other [facility]. Direct result comparisons should only be made within the same method. TSH - Thyroid Stimulating Ho rmone, Serumon 04-24-2021 TSH Qn 3.88 m[IU]/L See Below [facility] [place] [employer] Work Phone: Comment on above: Reference Range: 0.4 4 - 3.98 TSH testing is performed using different testing methodology at [facility] than at other [facility]. Direct result comparisons should only be made within the same method. Tobacco Screening.on 021 Fall risk assessment a) No falls within the last year [facility] [address] Work Phone: Tobacco use status [facility]PH[facility] c) Screening not indicated [facility] [address] Work Phone: BUNon 04-15-2021 Urea nitrogen [Mass/Vol] 6 mg/dL Normal 10-05 [facility] Comment on above: Performed By: #### 2 [id number] #### [facility] [address] [place] [address] Consent for Treatmenton 03-19 Consent for Treatment [id number]:127 Normal [facility] Creat Clearon 04-15-2021 Creatinine renal clearance/1.73 sq M (24H U+S/P) [Vol rate/Area] 156 mL/min High 75-115 [facility] Comment on above: Performed By: #### 2 [id number] #### [facility] [address] [place] [address] Creatine (U) [Moles/Vol] 93.7 mg/dL Normal >=10.0 [facility] Comment on above: Performed By: #### 2 [id number] #### [facility] [address] [place] [address] Creatinineon 04-15-2021 Creatinine [Mass/Vol] 0.7 mg/dL Normal 0.5-1.3 [facility] Comment on above: Performed By: #### 2 [id number] #### [facility] [address] [place] [address] Physician Orderon 04-15-2021 Physician Order [id number]:127 Normal [facility] U24 Proteinon 04-15-2021 Protein (24H U) [Mass/Vol] Unable to calc Invalid Interpretation Code [id number] [facility] Comment on above: Performed By: #### 1 [id number] #### [facility] [address] [place] [address] Albumin Elph (U) [Mass fraction] <6.0 Invalid Interpretation Code [facility] Comment on above: Result Comment: The reference range and other method performance specifications have not been established for this test; results should be integrated into the clinical context for interpretation. Performed By: #### 1 [id number], [id number] #### [facility] [address] [place] [address] U24 Total Volon 04-15-2021 Hrs Efrain 24 hour(s) Invalid Interpretation Code [facility] Comment on above: Order Comment: Order added by Discern Expert Performed By: #### 1 [id number], [id number] #### [facility] [address] [place] [address] Specimen volume Unsp time (U) 1675 mL Invalid Interpretation Code [facility] Comment on above: Order Comment: Order added by Discern Expert Performed By: #### 1 [id number] #### [facility] [address] [place] [address] Hrs Efrain 24 hour(s) Invalid Interpretation Code [facility] Comment on above: Order Comment: Order added by Discern Expert Performed By: #### 2 [id number], [id number], [id number] #### [facility] [address] [place] [address] Specimen volume Unsp time (U) 1675 mL Invalid Interpretation Code [facility] Comment on above: Order Comment: Order added by Discern Expert Performed By: #### 2 [id number], [id number], [id number], [id number] #### [facility] [address] [place] [address] eGFRon 04-15-2021 eGFR AA >60 Normal >=59 [facility] Comment on above: Order Comment: Order added by Discern Expert. Result Comment: eGFR is race adjusted. AA=. Performed By: #### 2 [id number], [id number], [id number], [id number] #### [facility] [address] [place] [address] GFR/1.73 sq M.predicted among non-blacks MDRD (S/P/Bld) [Vol rate/Area] mL/min/{1.73_m2} Normal >=59 [facility] Comment on above: Order Comment: Order added by Discern Expert. Result Comment: Machinist Outside caitlin kidney disease could be indicated at eGFR's of less than 60 mL/min/1.73m2. Kidney failure is indicated at less than 15 mL/min/1.73m2. Performed By: #### 2 [id number], [id number], [id number], [id number] #### [facility] [address] [place] [address] Lupus Anticoagulanton 2020 Anticardiolipin IgM 5.2 MPL Normal 0.0-10.0 [facility] Comment on above: Result Comment: Reference Range: <10.0 Negative 10.0-40.0 Equivocal >40.0 Positive Performed By: #### H OCYS, FT4, TSH, CMIS, AT3A, PROCAC, PROSAC, LUPPRO #### [employer] [address] [place] [address] Machine Bender: Steven West MD #### APROTS, APROTC, AAT3AG, AMTHFR, AF5MUT, APTMUT #### [facility] [address] [place] [address] Machine Bender: Enrique Rivera MD Factor V Mutationon 04-02-20 21 F 5 SPECIMEN Whole Blood Normal [facility] Comment on above: Performed By: #### H OCYS, FT4, TSH, CMIS, AT3A, PROCAC, PROSAC, LUPPRO #### [employer] [address] [place] [address] Machine Bender: Steven West MD #### APROTS, APROTC, AAT3AG, AMTHFR, AF5MUT, APTMUT #### [facility] [address] [place] [address] Machine Bender: Enrique Rivera MD FACTOR 5 MUTATION Negative Normal [facility] Comment on above: Result Comment: (NOT E) Indication for testing: Assess genetic risk for thrombosis. NEGATIVE: The factor V Leiden variant, c.1601G>A; p.Iza508Xdg, was not detected. This does not exclude [...] function in the F5 gene variant c.1601G>A (p.Cld701Tpf). Legacy nomenclature: [id number] (1691G>A) CLINICAL SENSITIVITY: 20-50 percent of individuals with an isolated VTE have the FVL variant. METHODOLOGY: Polymerase chain reaction and fluorescence monitoring. ANALYTICAL SENSITIVITY AND SPECIFICITY: 99 percent. LIMITATIONS: Diagnostic errors can occur due to rare sequence variations. F5 gene mutations, other than p.Zix756Zgg, will not be detected. This test was developed and its performance characteristics determined by [facility] [employer]. It has not been cleared or approved by the US Food and Drug Administration. This test was performed in a CLIA certified laboratory and is intended for clinical purposes. Counseling and informed consent are recommended for genetic testing. Consent forms are available online. Performed by [facility], [address] [place] [id number] [email or web address], Angela Collazo MD, Lab. Director Performed By: #### H OCYS, FT4, TSH, CMIS, AT3A, PROCAC, PROSAC, LUPPRO #### [address] [address] Machine Bender: Steven West MD #### APROTS, APROTC, AAT3AG, AMTHFR, AF5MUT, APTMUT #### [facility] [address] [place] [address] Machine Bender: Enrique Rivera MD PT Mutation [id number] 04-02-20 21 PT [id number] VARIANT Negative Normal [facility] Comment on above: Result Comment: (NOT E) Indication for testing: Assess genetic risk for thrombosis. NEGATIVE: The Factor II, prothrombin U37288D mutation, was not detected. Other causes of [...] M.D., Ph.D. BACKGROUND INFORMATION: Prothrombin (F2) c.*97G>A (J68641Z) Pathogenic Variant CHARACTERISTICS: The Factor II, c.*97G>A (C72846N) pathogenic variant is a common genetic risk [...] CAUSE: Homozygosity or heterozygosity for F2 c.*97G>A (T80871J). PATHOGENIC VARIANT TESTED: F2 c.*97G>A (N68701X). CLINICAL SENSITIVITY FOR VENOUS THROMBOSIS: Approximately 10 percent. METHODOLOGY: Polymerase chain reaction and fluorescence monitoring. ANALYTICAL SENSITIVITY AND SPECIFICITY: 99 percent. LIMITATIONS: Diagnostic errors can occur due to rare sequence variations. F2 gene variants, other than c.*97G>A (N46597A), will not be detected. This test was developed and its performance characteristics determined by [employer]. It has not been cleared or approved by the US Food and Drug Administration. This test was performed in a CLIA certified laboratory and is intended for clinical purposes. Counseling and informed consent are recommended for genetic testing. Consent forms are available online. Performed by [facility], [address] [place] [address] [phone] [email or web address], Angela Collazo MD, Lab. Director Performed By: #### H OCYS, FT4, TSH, CMIS, AT3A, PROCAC, PROSAC, LUPPRO #### [employer] [address] [address] Machine Bender: Steven West MD #### APROTS, APROTC, AAT3AG, AMTHFR, AF5MUT, APTMUT #### [facility] [address] [place] [address] Machine Bender: Enrique Rivera MD PT PCR SPECIMEN Whole Blood Normal [facility] Comment on above: Performed By: #### H OCYS, FT4, TSH, CMIS, AT3A, PROCAC, PROSAC, LUPPRO #### [address] [address] Machine Bender: Steven West MD #### APROTS, APROTC, AAT3AG, AMTHFR, AF5MUT, APTMUT #### [facility] [address] [place], [place] [id number] Machine Bender: Enrique Rivera MD Antithrombin III Jeffery 04-01 Antithrombin III Act 103 % Normal 83-122 [facility] Comment on above: Result Comment: Patients receiving Hirudin may have a falsely decreased Antitrombin III Activity. Performed By: #### H OCYS, FT4, TSH, CMIS, AT3A, PROCAC, PROSAC, LUPPRO #### [address] [address] Machine Bender: Steven West MD #### APROTS, APROTC, AAT3AG, AMTHFR, AF5MUT, APTMUT #### [facility] [address] [place], [place] [id number] Machine Bender: Enrique Rivera MD Lupus Anticoagulanton 2020 Dilute Vicente Viper Negative [facility] Comment on above: Performed By: #### H OCYS, FT4, TSH, CMIS, AT3A, PROCAC, PROSAC, LUPPRO #### [facility] [address] [place] [address] Machine Bender: Steven West MD #### APROTS, APROTC, AAT3AG, AMTHFR, AF5MUT, APTMUT #### [facility] [address] [place], [place] [id number] Machine Bender: Enrique Rivera MD MTHFR Gene Mutationon 2020 MTHFR 1286 A>C Mut Negative Normal [facility] Comment on above: Performed By: #### H OCYS, FT4, TSH, CMIS, AT3A, PROCAC, PROSAC, LUPPRO #### [facility] [address] [place] [address] Machine Bender: Steven West MD #### APROTS, APROTC, AAT3AG, AMTHFR, AF5MUT, APTMUT #### [facility] [address] [place], [place] [id number] Machine Bender: Enrique Rivera MD MTHFR 655C>T Mut Negative Normal [facility] Comment on above: Performed By: #### H OCYS, FT4, TSH, CMIS, AT3A, PROCAC, PROSAC, LUPPRO #### [facility] [address] [place] [address] Machine Bender: Steven West MD #### APROTS, APROTC, AAT3AG, AMTHFR, AF5MUT, APTMUT #### [facility] [address] [place], [place] [id number] Machine Bender: Enrique Rivera MD MTHFR Interpretation See Note Normal [facility] Comment on above: Result Comment: (NOT E) Indication for testing: Determine genetic contribution to hyperhomocysteinemia. Negative: Neither of the common MTHFR gene variants tested, c.665C>T (previously designated C677T) and c.1286A>C (previously designated Y8091L), were detected. Other causes of elevated homocysteine [...] has an effect on cardiovascular disease. The [employer] Practice Guidelines indicate [...] a contributing factor to hyperhomocysteinemia. Variants Tested: c.665C>T(p.Nln606Uhf) and c.1286A>C(p.Kpz380Lfy). (legacy names C677T and M8842Z, respectively). Clinical Sensitivity: Undefined; hyperhomocysteinemia is caused [...] developed and its performance characteristics determined by [employer]. It has not been cleared or approved by the US Food and Drug Administration. This test was performed in a CLIA certified laboratory and is intended for clinical purposes. Counseling and informed consent are recommended for genetic testing. Consent forms are available online. Performed by [facility], [address] [place] [phone] [email or web address], Angela Collazo MD, Lab. Director Performed By: #### H OCYS, FT4, TSH, CMIS, AT3A, PROCAC, PROSAC, LUPPRO #### [employer] [address] [place] [address] Machine Bender: Steven West MD #### APROTS, APROTC, AAT3AG, AMTHFR, AF5MUT, APTMUT #### [employer] [address] [place] [address] Machine Bender: Enrique Rivera MD MTHFR SPECIMEN Whole Blood Normal [facility] Comment on above: Performed By: #### H OCYS, FT4, TSH, CMIS, AT3A, PROCAC, PROSAC, LUPPRO #### [facility] [address] [place] [id number] Machine Bender: Steven West MD #### APROTS, APROTC, AAT3AG, AMTHFR, AF5MUT, APTMUT #### [facility] [address] [place], [place] [id number] Machine Bender: Enrique Rivera MD Protein C Activityon 021 Protein C Activity >150 Normal >80 [facility] Comment on above: Result Comment: Patients on [...] TSH, CMIS, AT3A, PROCAC, PROSAC, LUPPRO #### [facility] [address] [place] [address] [id number] Machine Bender: Steven West MD #### APROTS, APROTC, AAT3AG, AMTHFR, AF5MUT, APTMUT #### [facility] [address] [place], [place] [phone] Machine Bender: Enrique Rivera MD Protein S Activityon 021 Protein S Activity 60 % Normal 59-130 [facility] Comment on above: Result Comment: Patients on [...] TSH, CMIS, AT3A, PROCAC, PROSAC, LUPPRO #### [address] [id number] Machine Bender: Steven West MD #### APROTS, APROTC, AAT3AG, AMTHFR, AF5MUT, APTMUT #### [address] [address] Machine Bender: Enrique Rivera MD Anti-thrombin 3 Agon 021 Anti-thrombin 3 Ag 83 % Normal 82-136 [facility] Comment on above: Result Comment: (NOT E) REFERENCE INTERVAL: Antithrombin Antigen Access complete set of age- and/or gender-specific reference intervals for this test in the [facility] Test Directory ([email or web address]). Performed by [facility], [address] [place] [address],[place] [id number] [email or web address], Angela Collazo MD, Lab. Director Performed By: #### H OCYS, FT4, TSH, CMIS, AT3A, PROCAC, PROSAC, LUPPRO #### [address] [id number] Machine Bender: Steven West MD #### APROTS, APROTC, AAT3AG, AMTHFR, AF5MUT, APTMUT #### [address] [address] Machine Bender: Enrique Rivera MD Protein C Antigenicon 2020 Protein C Antigenic 86 % Normal 63-153 [facility] Comment on above: Result Comment: (NOT E) INTERPRETIVE INFORMATION: Protein C, Total Antigen Patients on warfarin may have decreased protein C values. Patients should be off warfarin therapy for two weeks for accurate measurement of protein C. Access complete set of age- and/or gender-specific reference intervals for this test in the [facility] Test Directory ([email or web address]). Performed by [facility], [address] [place] [address],[place] [phone] [email or web address], Angela Collazo MD, Lab. Director Performed By: #### H OCYS, FT4, TSH, CMIS, AT3A, PROCAC, PROSAC, LUPPRO #### [address] [address] Machine Bender: Steven West MD #### APROTS, APROTC, AAT3AG, AMTHFR, AF5MUT, APTMUT #### [address] [phone] Machine Bender: Enrique Rivera MD Protein S, Antigenicon 03-31 Protein S, Antigenic 107 % Normal 63-126 [facility] Comment on above: Result Comment: (NOT E) INTERPRETIVE INFORMATION: Protein S, Total Antigen Patients on warfarin may have decreased protein S values. Patients should be off warfarin therapy for two weeks for accurate measurement of protein S. Access complete set of age- and/or gender-specific reference intervals for this test in the [facility] Test Directory ([email or web address]). Performed by [facility], [address] [place] [phone] [email or web address], Angela Collazo MD, Lab. Director Performed By: #### H OCYS, FT4, TSH, CMIS, AT3A, PROCAC, PROSAC, LUPPRO #### [facility] [address] [place] [address] Machine Bender: Steven West MD #### APROTS, APROTC, AAT3AG, AMTHFR, AF5MUT, APTMUT #### [address] [phone] Machine Bender: Enrique Rivera MD Lupus Anticoagulanton 2020 Anticardiolipin IgA 1.1 APL Normal 0.0-14.0 [facility] Comment on above: Result Comment: Reference Range: <14.0 Negative 14.0-20.0 Equivocal >20.0 Positive When results are Equivocal, it is recommended to retest after 4-6 weeks. Performed By: #### H OCYS, FT4, TSH, CMIS, AT3A, PROCAC, PROSAC, LUPPRO #### [facility] [address] [place] [address] [id number] Machine Bender: Steven West MD #### APROTS, APROTC, AAT3AG, AMTHFR, AF5MUT, APTMUT #### [facility] [address] [place] [address] Machine Bender: Enrique Rivera MD Anticardiolipin IgG 2.0 GPL Normal 0.0-10.0 [facility] Comment on above: Result Comment: Reference Range: <10.0 Negative 10.0-40.0 Equivocal >40.0 Positive Performed By: #### H OCYS, FT4, TSH, CMIS, AT3A, PROCAC, PROSAC, LUPPRO #### [facility] [employer] [address] [place] [address] Machine Bender: Steven West MD #### APROTS, APROTC, AAT3AG, AMTHFR, AF5MUT, APTMUT #### [facility] [address] [place] [address] Machine Bender: Enrique Rivera MD Miscellaneouson 03-28-2021 Send Out Report [facility] [phone] Normal [facility] Comment on above: Performed By: #### H OCYS, FT4, TSH, CMIS, AT3A, PROCAC, PROSAC, LUPPRO #### [facility] [employer] [address] [place] [address] [phone] Machine Bender: Steven West MD #### APROTS, APROTC, AAT3AG, AMTHFR, AF5MUT, APTMUT #### [facility] [address] [place] [address] Machine Bender: Enrique Rivera MD Homocysteineon 03-27-2021 Homocysteine 8.2 umol/L Normal <15.0 [facility] Comment on above: Performed By: #### H OCYS, FT4, TSH, CMIS, AT3A, PROCAC, PROSAC, LUPPRO #### [facility] [employer] [address] [place] [address] Machine Bender: Steven West MD #### APROTS, APROTC, AAT3AG, AMTHFR, AF5MUT, APTMUT #### [facility] [address] [place] [address] Machine Bender: Enrique Rivera MD Lupus Anticoagulanton 2020 aPTT Coag (Bld) [Time] 27.0 s Normal 20.5-30.5 [facility] Comment on above: Result Comment: IV Heparin Therapy Range: 48.6-77.8 Performed By: #### H OCYS, FT4, TSH, CMIS, AT3A, PROCAC, PROSAC, LUPPRO #### [address] [id number] Machine Bender: Steven West MD #### APROTS, APROTC, AAT3AG, AMTHFR, AF5MUT, APTMUT #### [facility] [address] [place] [address] Machine Bender: Enrique Rivera MD INR Coag (PPP) [Relative time] 1.0 {INR} Normal [facility] Comment on above: Result Comment: Therapeutic Range: Moderate Anticoagulant Intensity: INR = 2.0-3.0 High Anticoagulant Intensity: INR = 2.5-3.5 Performed By: #### H OCYS, FT4, TSH, CMIS, AT3A, PROCAC, PROSAC, LUPPRO #### [facility] [employer] [address] [place] [address] [phone] Machine Bender: Steven West MD #### APROTS, APROTC, AAT3AG, AMTHFR, AF5MUT, APTMUT #### [facility] [address] [place] [address] Machine Bender: Enrique Rivera MD PT Coag (PPP) [Time] 10.5 s Normal 9.1-12.3 [facility] Comment on above: Performed By: #### H OCYS, FT4, TSH, CMIS, AT3A, PROCAC, PROSAC, LUPPRO #### [facility] [address] [place] [address] [phone] Machine Bender: Steven West MD #### APROTS, APROTC, AAT3AG, AMTHFR, AF5MUT, APTMUT #### [facility] [address] [place], [place] [phone] Machine Bender: Enrique Rivera MD Lupus Anticoagulant NOT REPORTED Normal [facility] Comment on above: Performed By: #### H OCYS, FT4, TSH, CMIS, AT3A, PROCAC, PROSAC, LUPPRO #### [place] [address] Machine Bender: Steven West MD #### APROTS, APROTC, AAT3AG, AMTHFR, AF5MUT, APTMUT #### [facility] [address] [place], [place] [phone] Machine Bender: Enrique Rivera MD Miscellaneouson 03-27-2021 Test Name LOLY HORIZON Normal [facility] Comment on above: Performed By: #### H OCYS, FT4, TSH, CMIS, AT3A, PROCAC, PROSAC, LUPPRO #### [place] [phone] Machine Bender: Steven West MD #### APROTS, APROTC, AAT3AG, AMTHFR, AF5MUT, APTMUT #### [facility] [address] [place] [address] Machine Bender: Enrique Rivera MD Protein,Tot,Lorman Uron 2020 Creatinine [Mass/Vol] 141.7 mg/dL Normal 28.0-217.0 [facility] Comment on above: Performed By: #### H OCYS, FT4, TSH, CMIS, AT3A, PROCAC, PROSAC, LUPPRO #### [address] [address] Machine Bender: Steven West MD #### APROTS, APROTC, AAT3AG, AMTHFR, AF5MUT, APTMUT #### [facility] [address] [place], [place] [phone] Machine Bender: Enrique Rivera MD Tot Prot. Conc. 14 mg/dL Normal [facility] Comment on above: Result Comment: No n ormal range established. Performed By: #### H OCYS, FT4, TSH, CMIS, AT3A, PROCAC, PROSAC, LUPPRO #### [address] [address] Machine Bender: Steven West MD #### APROTS, APROTC, AAT3AG, AMTHFR, AF5MUT, APTMUT #### [facility] [address] [address] Machine Bender: Enrique Rivera MD TP/Cre Ratio 0.10 Normal 0.00-0.20 [facility] Comment on above: Performed By: #### H OCYS, FT4, TSH, CMIS, AT3A, PROCAC, PROSAC, LUPPRO #### [address] [phone] Machine Bender: Steven West MD #### APROTS, APROTC, AAT3AG, AMTHFR, AF5MUT, APTMUT #### [facility] [address] [place] [address] Machine Bender: Enrique Rivera MD Thyroid Stim. Horm.on 2020 TSH Qn 9.52 m[IU]/L High 0.30-5.00 [facility] Comment on above: Performed By: #### H OCYS, FT4, TSH, CMIS, AT3A, PROCAC, PROSAC, LUPPRO #### [address] [address] Machine Bender: Steven West MD #### APROTS, APROTC, AAT3AG, AMTHFR, AF5MUT, APTMUT #### [facility] [address] [place] [address] Machine Bender: Enrique Rivera MD Thyroxine, Freeon 03-27-2021 Thyroxine, Free 1.45 ng/dL Normal 0.93-1.70 [facility] Comment on above: Performed By: #### H OCYS, FT4, TSH, CMIS, AT3A, PROCAC, PROSAC, LUPPRO #### [facility] [address] [place], [place] [phone] Machine Bender: Steven West MD #### APROTS, APROTC, AAT3AG, AMTHFR, AF5MUT, APTMUT #### [facility] [address] [place] [address] Machine Bender: Enrique Rivera MD Tobacco Screening.on 021 Fall risk assessment a) No falls within the last year [facility] Work Phone: Tobacco use status [facility] b) No [facility] Work Phone: Tobacco Screening.on 021 Fall risk assessment a) No falls within the last year [facility] Work Phone: Tobacco use status [facility] b) No [facility] Work Phone: T-SPOT. TBon 11-07-2020 T-SPOT. TB Passed [facility] Work Phone: T-SPOT. TB 0 1 [facility] Work Phone: T-SPOT. TB 1 1 [facility] Work Phone: T-SPOT. TB Negative See Below [employer] [facility] cityGradFlyWh[facility] [employer] [facility] Work Phone: Comment on above: Reference Range: [...] Protein, Serumon 11-03-2020 CRP [Mass/Vol] 0.67 mg/dL [employer] [facility] Work Phone: Comment on above: REF VALUE< 1.00 Folate, Serumon 11-03-2020 Folate [Mass/Vol] 10.8 ng/mL >5.0 [employer] [facility] Work Phone: Comment on above: Low <3.4Borderline 3 .4-5.0Normal >5.0. Patients receiving more than 5 mg/day of biotin may have interference in test results. A sample should be taken no sooner than eight hours after previous dose. Contact the testing laboratory for additional information. No Panel Informationon 11-03 <1.7 <1.7 [employer] [facility] cityS[facility] [email or web address] Work Phone: Comment on above: Serum adalimumab [...] For full report see separate report from [facility]. 11.6 ug/mL Abnormal <1.6 [facility] Work Phone: SEE BELOW [facility] Work Phone: Comment on above: DETECTABLE SERUM ADA LIMUMAB UNDETECTED ANTIBODIES TO ADALIMUMAB Sedimentation Rate, Erythroc yteon 11-03-2020 ESR (Bld) [Velocity] 44 mm/h above high threshold 0 - 20 [facility] Work Phone: Vitamin B12, Serumon 021 Cobalamin (Vitamin B12) [Mass/Vol] 340 pg/mL 211 - 911 [facility] Work Phone: Complete Blood Count + Diffe rentialon 10-09-2020 Basophils/100 WBC (Bld) 0.4 % 0.0 - 2.0 [facility] Work Phone: Erythrocyte distribution width (RBC) [Ratio] 16.4 % above high threshold See Below [facility] Work Phone: Comment on above: Reference Range: 11. 5 - 14.5 Hematocrit (Bld) [Volume fraction] 39.1 % See Below [facility] Work Phone: Comment on above: Reference Range: 36. 0 - 46.0 Hemoglobin (Bld) [Mass/Vol] 12.3 g/dL See Below [facility] Work Phone: Comment on above: Reference Range: 12. 0 - 16.0 Lymphocytes/100 WBC (Bld) 28.0 % See Below [facility] Work Phone: Comment on above: Reference Range: 13. 0 - 44.0 MCHC (RBC) [Mass/Vol] 31.5 g/dL below low threshold See Below [employer] [facility] Work Phone: Comment on above: Reference Range: 32. 0 - 36.0 MCV (RBC) [Entitic vol] 83 fL 80 - 100 [facility] Work Phone: [phone] Monocytes/100 WBC (Bld) 4.2 % 2.0 - 10.0 [facility] Work Phone: Neutrophils/100 WBC (Bld) 66.4 % See Below [facility] Health[facility] Data Solutionso [facility] Work Phone: Comment on above: Reference Range: 40. 0 - 80.0 Platelets (Bld) [#/Vol] 260 10*3/uL 150 - 450 [facility] Work Phone: RBC (Bld) [#/Vol] 4.73 {x10E12/L} See Below [facility] Work Phone: Comment on above: Reference Range: 4.0 0 - 5.20 WBC (Bld) [#/Vol] 7.8 10*3/uL 4.4 - 11.3 [employer] [facility] Work Phone: Complete Blood Count + Differential 0.03 {x10E9/L} See Below [facility] Work Phone: Comment on above: Reference Range: 0.0 0 - 0.10 Complete Blood Count + Differential 0.07 {x10E9/L} See Below [employer] [facility] Work Phone: Comment on above: Reference Range: 0.0 0 - 0.70 Complete Blood Count + Differential 0.33 {x10E9/L} See Below [employer] [facility] Work Phone: Comment on above: Reference Range: 0.1 0 - 1.00 Complete Blood Count + Differential 2.19 {x10E9/L} See Below [facility] [employer] [facility] Work Phone: Comment on above: Reference Range: 1.2 0 - 4.80 Complete Blood Count + Differential 5.20 {x10E9/L} See Below [facility] Work Phone: Comment on above: Reference Range: 1.2 0 - 7.70 Complete Blood Count + Differential 0.9 % 0.0 - 6.0 [facility] Work Phone: Complete Blood Count + Differential 0.1 % 0.0 - 0.9 [facility] Work Phone: Comment on above: Immature Granulocyte Count (IG) includes promyelocytes, myelocytes and metamyelocytes but does not include bands. Percent differential counts (%) should be interpreted in the context of the absolute cell counts (cells/L). Ferritin, Serumon 10-09-2020 Ferritin [Mass/Vol] 79 ug/L 8 - 150 MP-Un iv [facility] Work Phone: Laboratory - Chemistry and C hemistry - challengeon 10-09-2020 Iron [Mass/Vol] 53 ug/dL 35 - 150 [facility] Work Phone: Iron binding capacity [Mass/Vol] 297 ug/dL 240 - 445 [facility] Work Phone: No Panel Informationon 10-09 18 % below low threshold 25 - 45 [facility] Work Phone: Ferritin, Serumon 07-07-2020 Ferritin [Mass/Vol] 11 ug/L 8 - 150 [facility] Work Phone: Comment on above: Ordering Provider: Samara IQBAL 23934 Hematologyon 07-07-2020 Hematocrit (Bld) [Volume fraction] 35.6 % below low threshold See Below [facility]-Endocrino logy-[facility] Work Phone: Comment on above: Reference Range: 36. 0 - 46.0 Ordering Provider: Samara FLYNN RASHEED 47903 Hemoglobin (Bld) [Mass/Vol] 10.6 g/dL below low threshold See Below [facility]ocrino logy[facility] Work Phone: Comment on above: Reference Range: 12. 0 - 16.0 Ordering Provider: Samara FLYNN RASHEED 47550 MCV (RBC) [Entitic vol] 83 fL 80 - 100 [facility]ino log[facility] Luis M 1600 Work Phone: Comment on above: Ordering Provider: Samara FLYNN RASHEED 31578 Platelets (Bld) [#/Vol] 311 {x10E9/L} 150 - 450 [facility]ino log[facility] Work Phone: Comment on above: Ordering Provider: Samara FLYNN RASHEED 02166 RBC (Bld) [#/Vol] 4.29 {x10E12/L} See Below [facility] -Endocrino logy[facility] Work Phone: Comment on above: Reference Range: 4.0 0 - 5.20 Ordering Provider: Samara FLYNN RASHEED 21094 WBC (Bld) [#/Vol] 7.4 {x10E9/L} 4.4 - 11.3 [facility]E ndocrino log[facility] Luis M 1600 Work Phone: Comment on above: Ordering Provider: Samara FLYNN RASHEED 97675 WBC (Bld) [#/Vol] 0.0 {/100_WBC} 0.0 - 0.0 [facility]- [facility]ino log[facility] Luis M 1600 Work Phone: Comment on above: Ordering Provider: Samara RINA IQBAL 73721 Metabolic Panelon 07-07-2020 Iron [Mass/Vol] 31 ug/dL below low threshold 35 - 150 [facility] Luis M 1600 Work Phone: Comment on above: Ordering Provider: Samara SANTIAGOSELENA 29977 Otheron 07-07-2020 Erythrocyte distribution width (RBC) [Ratio] 14.7 % above high threshold See Below [facility]ocrino log[facility] Work Phone: Comment on above: Reference Range: 11. 5 - 14.5 Ordering Provider: Samara FLYNN RASHEED 72355 Iron binding capacity [Mass/Vol] 343 ug/dL 240 - 445 [facility]ino log[facility] Luis M 1600 Work Phone: Comment on above: Ordering Provider: Samara SANTIAGOSELENA 02171 MCHC (RBC) [Mass/Vol] 29.8 g/dL below low threshold See Below [facility] Luis M 1600 Work Phone: Comment on above: Reference Range: 32. 0 - 36.0 Ordering Provider: Samara FLYNN RASHEED 24636 9 % below low threshold 25 - 45 [facility] Luis M 1600 Work Phone: Comment on above: Ordering Provider: Samara SANTIAGOSELENA 91563 Parathormone Intact, Serumon 07-07-2020 Parathyrin.intact [Mass/Vol] 77.2 pg/mL See Below [facility]Endocrino log[facility] Luis M 1600 [...] mg/dL 8.6 - 10.3 MG-End ocrino logy-[facility] Luis M 1600 Work Phone: Chloride [Moles/Vol] 105 mmol/L 98 - 107 [facility]ino log[facility] Work Phone: CO2 [Moles/Vol] 27 mmol/L 21 - 32 MG-Endocr chin logy-[employer] 1600 Work Phone: Creatinine [Mass/Vol] 0.90 mg/dL See Below [facility]ocrino log[facility] Work Phone: Comment on above: Reference Range: 0.5 0 - 1.05 Glucose [Mass/Vol] 85 mg/dL 74 - 99 MG-End ocrino logy-[employer] 1600 Work Phone: Phosphate [Mass/Vol] 3.5 mg/dL 2.5 - 4.9 [facility] Luis M [employer] Work Phone: Comment on above: The performance angeline acteristics of phosphorus testing in heparinized plasma have been validated by the individual laboratory site where testing is performed. Testing on heparinized plasma is not approved by the FDA; however, such approval is not necessary. Potassium [Moles/Vol] 3.9 mmol/L 3.5 - 5.3 MG-Endocrino logy-[employer] 1600 Work Phone: Sodium [Moles/Vol] 137 mmol/L 136 - 145 MG-End ocrino logy-[employer] Work Phone: Urea nitrogen [Mass/Vol] 12 mg/dL 6 - 23 MG-Endocrino logy-[employer] Work Phone: Renal Function Panel >60 >60 MG-Endocrino logy-[employer] Work Phone: Comment on above: CALCULATIONS OF DANIEL MATED GFR ARE PERFORMED USING THE MDRD STUDY EQUATION FOR THE IDMS-TRACEABLE CREATININE METHODS. CLIN CHEM 2007;53:766-72 T4 - Free Thyroxine, Serumon 07-07-2020 Free T4 [Mass/Vol] 1.10 ng/dL See Below MG-End ocrino logy-[employer] 1600 Work Phone: Comment on above: Reference Range: 0.6 1 - 1.12 Thyroxine Free testing is performed using different testing methodology at [facility] than at other [facility]. Direct result comparisons should only be [...] 07-07-2020 TSH Qn 2.20 {mIU/L} See Below [employer] Work Phone: Comment on above: Reference Range: 0.4 4 - 3.98 TSH testing is performed using different testing methodology at [facility] than at other [facility]. Direct result comparisons should only be made within the same method. T4 - Free Thyroxine, Serumon 03-31-2020 Free T4 [Mass/Vol] 1.04 ng/dL See Below [employer] Work Phone: Comment on above: Reference Range: 0.6 1 - 1.12 Thyroxine Free testing is performed using different testing methodology at [facility] than at other [facility]. Direct result comparisons should only be [...] 03-31-2020 TSH Qn 2.70 {mIU/L} See Below [employer] Work Phone: Comment on above: Reference Range: 0.4 4 - 3.98 TSH testing is performed using different testing methodology at [facility] than at other [facility]. Direct result comparisons should only be made within the same method. T4 - Free Thyroxine, Serumon 03-10-2020 Free T4 [Mass/Vol] 0.96 ng/dL See Below [employer] Work Phone: Comment on above: Reference Range: 0.6 1 - 1.12 Thyroxine Free testing is performed using different testing methodology at [facility] than at other [facility]. Direct result comparisons should only be [...] 6.27 {mIU/L} above high threshold See Below [facility] 1600 Work Phone: Comment on above: Reference Range: 0.4 4 - 3.98 TSH testing is performed using different testing methodology at [facility] than at other [facility]. Direct result comparisons should only be made within the same method. T-SPOT. TBon 06-02-2019 T-SPOT. TB Passed [facility] Work Phone: T-SPOT. TB 0 [facility] Work Phone: T-SPOT. TB Negative See Below [facility] Work Phone: Comment on above: Reference [...] quantitative test. Complete Blood Count + Diffe rentialon 05-31-2019 Basophils (Bld) [#/Vol] 0.04 {x10E9/L} See Below [facility] Work Phone: Comment on above: Reference Range: 0.0 0 - 0.10 Ordering Provider: Samara FLYNN RASHEED 42578 Basophils/100 WBC (Bld) 0.5 % 0.0 - 2.0 [facility] Work Phone: Comment on above: Ordering Provider: Samara FLYNN RASHEED 17112 Eosinophils (Bld) [#/Vol] 0.05 {x10E9/L} See Below [facility] Work Phone: Comment on above: Reference Range: 0.0 0 - 0.70 Ordering Provider: Samara FLYNN JACKZAIDEMMANUEL 88581 Eosinophils/100 WBC (Bld) 0.6 % 0.0 - 6.0 [facility] Work Phone: Comment on above: Ordering Provider: Samara FLYNN RASHEED 94009 Erythrocyte distribution width (RBC) [Ratio] 15.8 % above high threshold See Below [facility] Work Phone: Comment on above: Reference Range: 11. 5 - 14.5 Ordering Provider: Samara FLYNN RASHEED 87491 Hematocrit (Bld) [Volume fraction] 35.2 % below low threshold See Below [facility] Work Phone: Comment on above: Reference Range: 36. 0 - 46.0 Ordering Provider: Samara SPANNEMMANUEL 74262 Hemoglobin (Bld) [Mass/Vol] 11.2 g/dL below low threshold See Below [facility] Work Phone: Comment on above: Reference Range: 12. 0 - 16.0 Ordering Provider: Samara FLYNN RASHEED 69620 Lymphocytes (Bld) [#/Vol] 2.67 {x10E9/L} See Below [facility] Work Phone: Comment on above: Reference Range: 1.2 0 - 4.80 Ordering Provider: Samara SPANNEMMANUEL 17442 Lymphocytes/100 WBC (Bld) 31.4 % See Below [facility] Work Phone: Comment on above: Reference Range: 13. 0 - 44.0 Ordering Provider: Samara SPANNEMMANUEL 48709 MCHC (RBC) [Mass/Vol] 31.8 g/dL below low threshold See Below [facility] Work Phone: Comment on above: Reference Range: 32. 0 - 36.0 Ordering Provider: Samara SPANNEMMANUEL 48664 MCV (RBC) [Entitic vol] 85 fL 80 - 100 [facility] Work Phone: Comment on above: Ordering Provider: Samara SPANNEMMANUEL 15415 Monocytes (Bld) [#/Vol] 0.56 {x10E9/L} See Below [facility] Work Phone: Comment on above: Reference Range: 0.1 0 - 1.00 Ordering Provider: Samara SPANNEMMANUEL 20556 Monocytes/100 WBC (Bld) 6.6 % 2.0 - 10.0 [facility] Work Phone: Comment on above: Ordering Provider: Samara SPANNEMMANUEL 92179 Neutrophils (Bld) [#/Vol] 5.16 {x10E9/L} See Below [facility] Work Phone: Comment on above: Reference Range: 1.2 0 - 7.70 Ordering Provider: Samara SPANNRIKADE 22848 Neutrophils/100 WBC (Bld) 60.5 % See Below [facility] Work Phone: Comment on above: Reference Range: 40. 0 - 80.0 Ordering Provider: Samara SPANNEMMANUEL 70878 Platelets (Bld) [#/Vol] 345 {x10E9/L} 150 - 450 [facility] Work Phone: Comment on above: Ordering Provider: Samara SPANNEMMANUEL 81400 RBC (Bld) [#/Vol] 4.14 {x10E12/L} See Below [facility] Work Phone: Comment on above: Reference Range: 4.0 0 - 5.20 Ordering Provider: Samara SPANNEMMANUEL 49456 WBC (Bld) [#/Vol] 8.5 {x10E9/L} 4.4 - 11.3 -U niv [facility] Work Phone: Comment on above: Ordering Provider: Samara SMITHKADE 65422 WBC (Bld) [#/Vol] 0.0 {/100_WBC} 0.0-0.0 [facility] Work Phone: Comment on above: Ordering Provider: Samara SPANNEMMANUEL 65539 Complete Blood Count + Differential 0.4 % 0.0 - 0.9 [facility] Work Phone: Comment on above: Percent differential counts (%) should be interpreted in the context of the absolute cell counts (cells/L). Ordering Provider: Samara SPANNEMMANUEL 18162 Ferritin, Serumon 05-31-2019 Ferritin [Mass/Vol] 16 ug/L 8 - 150 MP-Un iv [facility] Work Phone: Comment on above: Ordering Provider: Samara SPANNEMMANUEL 15284 Metabolic Panelon 05-31-2019 Iron [Mass/Vol] 35 ug/dL 35 - 150 [facility] Work Phone: Comment on above: Ordering Provider: Samara SPANNEMMANUEL 02885 Otheron 05-31-2019 Iron binding capacity [Mass/Vol] 346 ug/dL 240 - 445 [facility] Work Phone: Comment on above: Ordering Provider: Samara FLYNN RASHEED 76994 10 % below low threshold 25 - 45 MP-Univ [facility] Work Phone: Comment on above: Ordering Provider: Samara IQBAL 20462 C Reactive Protein, Serumon 08-30-2018 CRP mass conc 0.97 mg/dL [facility] Work Phone: Comment on above: REF VALUE< 1.00 Ferritin, Serumon 08-30-2018 Ferritin mass conc 19 ug/L 8 - 150 [employer] [facility] Work Phone: Folate, Serumon 08-30-2018 Folate mass conc 10.7 ng/mL >5.0 [facility] Work Phone: Comment on above: Patients receiving m ore than 5 mg/day of biotin may have interference in test results. A sample should be taken no sooner than eight hours after previous dose. Contact the testing laboratory for additional information. Hematologyon 08-30-2018 Hematocrit Volume Fraction (Bld) 31.9 % below low threshold See Below [facility] Work Phone: Comment on above: Reference Range: 36. 0 - 46.0 Hemoglobin mass conc (Bld) 9.7 g/dL below low threshold See Below [facility] Work Phone: Comment on above: Reference Range: 12. 0 - 16.0 MCV Entitic volume (RBC) 82 fL 80 - 100 [facility] Work Phone: Platelets #/vol (Bld) 481 {x10E9/L} above high threshold 150 - 450 [facility] Work Phone: RBC #/vol (Bld) 3.87 {x10E12/L} below low threshold See Below [facility] Work Phone: Comment on above: Reference Range: 4.0 0 - 5.20 WBC #/vol (Bld) 7.7 {x10E9/L} 4.4 - 11.3 MP-Uni v [facility] [facility] Work Phone: WBC #/vol (Bld) 0.0 {/100_WBC} 0.0-0.0 MP-Un iv [facility] Work Phone: Metabolic Panelon 08-30-2018 ALP enzyme act/vol 55 U/L 33 - 110 MP[facility]Uni v [facility] Work Phone: Anion gap molar conc 11 mmol/L 10 - 20 MP-Univ [facility] [facility] Work Phone: Bilirubin mass conc 0.2 mg/dL 0.0 - 1.2 MP-Un iv [facility] Work Phone: Calcium mass conc 9.1 mg/dL 8.6 - 10.6 -Univ [facility] Work Phone: Chloride molar conc 104 mmol/L 98 - 107 MP-Un iv [facility] Work Phone: CO2 molar conc 28 mmol/L 21 - 32 MP[facility]iv [facility] Work Phone: Creatinine mass conc 0.70 mg/dL See Below -Univ [facility] log[facility] Work Phone: Comment on above: Reference Range: 0.5 0 - 1.05 Glucose mass conc 81 mg/dL 74 - 99 MP-Univ [facility] [facility] Work Phone: Iron mass conc 19 ug/dL below low threshold 35 - 150 [facility]Univ [facility] [facility] Work Phone: Potassium molar conc 4.2 mmol/L 3.5 - 5.3 MP-Univ [facility] [facility] Work Phone: Protein mass conc 6.6 g/dL 6.4 - 8.2 [facility] Work Phone: Sodium molar conc 139 mmol/L 136 - 145 [facility] Work Phone: Urea nitrogen mass conc 6 mg/dL 6 - 23 [facility] Work Phone: Otheron 08-30-2018 Albumin Bromocresol purple (BCP) dye binding method mass conc 3.6 g/dL 3.4 - 5.0 [facility] Work Phone: ALT With P-5'-P enzyme act/vol 9 U/L 7 - 45 [facility] Work Phone: Comment on above: Patients treated wit h Sulfasalazine may generate falsely decreased results for ALT. AST With P-5'-P enzyme act/vol 12 U/L 9 - 39 [facility] Work Phone: Erythrocyte distribution width Ratio (RBC) 17.2 % above high threshold See Below [facility] Work Phone: Comment on above: Reference Range: 11. 5 - 14.5 Iron binding capacity mass conc 365 ug/dL 240 - 445 [facility] Work Phone: MCHC mass conc (RBC) 30.4 g/dL below low threshold See Below [facility] Work Phone: Comment on above: Reference Range: 32. 0 - 36.0 >60 >60 [facility] Work Phone: Comment on above: CALCULATIONS OF DANIEL MATED GFR ARE PERFORMED USING THE MDRD STUDY EQUATION FOR THE IDMS-TRACEABLE CREATININE METHODS. CLIN CHEM 2007;53:766-72 5 % below low threshold 25 - 45 [employer] Work Phone: [phone] [employer] Work Phone: Comment on above: Reference Range: 230 -400 pmole/8 x 10\S\8 RBCResult Assessment: Higher risk of leucopenia. Higher likelihood of response. SEE BELOW [employer] Work Phone: Comment on above: < the lower limit of detection (223)Reference Range:< 5700 pmole/8 x 10\S\8 RBCResult Assessment:Not quantifiable. Lower Risk of Hepatotoxicity. SEE COMMENT [employer] Work Phone: Comment on above: The therapeutic rang e and toxic thresholds wereestablished in an IBD patient populationreceiving azathioprine or 6- mercaptopurine.Metabolite testing should not replace laboratorymonitoring for toxicity. TEST PERFORMED AT [facility]. Sedimentation Rate, Erythroc yteon 08-30-2018 ESR Velocity (Bld) 58 mm/h above high threshold 0 - 20 [employer] Work Phone: Vitamin B12, Serumon 019 Cobalamin (Vitamin B12) mass conc 501 pg/mL 211 - 911 [employer] Work Phone: ABDOMEN LIMITED ECHOon 07-20 ABDOMEN LIMITED ECHO DATE OF EXAM: Jul 20 2018 1:44PM CLINICAL HISTORY/ Patient Name: LOLA HIGGINBOTHAM STUDY: ABDOMEN LIMITED ECHO; 07/20/2018 1:44 pm INDICATION: ruq pain. Nausea and vomiting. COMPARISON: None. ACCESSION NUMBER(S): [id number] ORDERING CLINICIAN: MATTHEW OROZCO TECHNIQUE: Grayscale and [...] gallbladder fundus. Surgical evaluation is recommended. Normal [facility] Healthcare CBC With Differentialon 05-0 Basophils #/vol (Bld) 0.02 10*3/uL Normal 0.01-0.07 [facility] Comment on above: Performed By: #### 2 [id number] #### [facility] [address] [place] [address] 61839 Basophils/100 WBC (Bld) 0.3 % Normal 0.1-1.2 [facility] Comment on above: Performed By: #### 2 [id number] #### [facility] [address] [place] [address] 80540 Eosinophils #/vol (Bld) 0.06 10*3/uL Normal 0.04-0.50 [facility] Comment on above: Performed By: #### 2 [id number] #### [facility] [address] [place] [address] 71316 Eosinophils/100 WBC (Bld) 0.8 % Normal 0.0-8.1 [facility] Comment on above: Performed By: #### 2 [id number] #### [facility] [address] [place] [address] 00534 Erythrocyte distribution width Ratio (RBC) 13.4 % Normal 12.0-15.4 [facility] Comment on above: Performed By: #### 2 [id number] #### [facility] [address] [place] [address] 84775 Hematocrit Volume Fraction (Bld) 36.8 % Normal 36.5-46.6 [facility] Healthcare Comment on above: Performed By: #### 2 [id number] #### [facility] [address] [place] [address] 41697 Hemoglobin mass conc (Bld) 11.8 g/dL Normal 11.8-15.3 [facility] Healthcare Comment on above: Performed By: #### 2 [id number] #### [facility] [address] [place] [address] Imm Grans Absolute 0.02 10*3/uL Normal 0.00-0.21 [facility] Comment on above: Performed By: #### 2 [id number] #### [facility] [address] [place] [address] Immature granulocytes #/vol (Bld) 0.3 % Normal [facility] Comment on above: Performed By: #### 2 [id number] #### [facility] [address] [place] [address] Lymphocytes #/vol (Bld) 2.08 10*3/uL Normal 0.40-2.84 [facility] Healthcare Comment on above: Performed By: #### 2 [id number] #### [facility] [address] [place] [address] Lymphocytes/100 WBC (Bld) 28.7 % Normal 15.7-50.5 [facility] Healthcare Comment on above: Performed By: #### 2 [id number] #### [facility] [address] [place] [address] MCH Entitic mass (RBC) 27.8 pg Normal 27.5-33.0 [facility] Healthcare Comment on above: Performed By: #### 2 [id number] #### [facility] [address] [place] [address] MCHC mass conc (RBC) 32.1 g/dL Normal 30.1-35.0 [facility] Healthcare Comment on above: Performed By: #### 2 [id number] #### [facility] [address] [place] [address] MCV Entitic volume (RBC) 86.6 fL Normal 85.4-100.0 [facility] Comment on above: Performed By: #### 2 [id number] #### [facility] [address] [place] [address] Monocytes #/vol (Bld) 0.33 10*3/uL Normal 0.25-0.83 [facility] Comment on above: Performed By: #### 2 [id number] #### [facility] [address] [place] [address] Monocytes/100 WBC (Bld) 4.6 % Low 4.8-12.7 [facility] Comment on above: Performed By: #### 2 [id number] #### [facility] [address] [place] [address] Neutrophils Absolute 4.73 10*3/uL Normal 1.95-6.85 [facility] Comment on above: Performed By: #### 2 [id number] #### [facility] [address] [place] [address] Neutrophils/100 WBC (Bld) 65.3 % Normal 36.8-73.2 [facility] Comment on above: Performed By: #### 2 [id number] #### [facility] [address] [place] [address] NRBC Absolute 0.00 10*3/uL Normal [facility] Healthcare Comment on above: Performed By: #### 2 [id number] #### [facility] [address] [place] [address] NRBC Automated 0.0 /100{WBCs} Normal [facility] Healthcare Comment on above: Performed By: #### 2 [id number] #### [facility] [address] [place] [address] Platelet mean volume Entitic volume (Bld) 9.7 fL Low 9.9-12.1 [facility] Healthcare Comment on above: Performed By: #### 2 [id number] #### [facility] [address] [place] [address] Platelets #/vol (Bld) 315 10*3/uL Normal 155-404 [facility] Comment on above: Performed By: #### 2 [id number] #### [facility] [address] [place] [address] RBC #/vol (Bld) 4.25 10*6/uL Normal 3.85-5.10 [facility] Comment on above: Performed By: #### 2 [id number] #### [facility] [address] [place] [address] RDW SD 42.5 fL Normal 39.3-48.6 [facility] Healthcare Comment on above: Performed By: #### 2 [id number] #### [facility] [address] [place] [address] WBC #/vol (Bld) 7.2 10*3/uL Normal 4.4-9.9 [facility] Healthcare Comment on above: Performed By: #### 2 [id number] #### [facility] [address] [place] [address] Iron Profileon 09-15-2017 Iron Binding Capacity 268 ug/dL Normal 250-565 [facility] Healthcare Comment on above: Performed By: #### 1 [id number] #### [facility] [address] [place] [address] Iron mass conc 40 ug/dL Normal 35-150 [facility] Healthcare Comment on above: Performed By: #### 1 [id number] #### [facility] [address] [place] [address] Percent Saturation 15 % Normal 14-27 [facility] Healthcare Comment on above: Performed By: #### 1 [id number] #### [facility] [address] [place] [address] Unbound Iron Binding Capacity 228 ug/dL Normal 90-340 [facility] Healthcare Comment on above: Performed By: #### 1 [id number] #### [facility] [address] [place] [address] C-Reactive Proteinon 018 CRP mass conc 0.4 mg/dL Normal 0.0-1.0 [facility] Healthcare Comment on above: Performed By: #### 1 [id number] #### [facility] [address] [place] [address] CBC With Differentialon 08-17 Basophils #/vol (Bld) 0.03 10*3/uL Normal 0.01-0.07 [facility] Healthcare Comment on above: Performed By: #### 2 [id number] #### [facility] [address] [place] [address] Basophils/100 WBC (Bld) 0.4 % Normal 0.1-1.2 [facility] Healthcare Comment on above: Performed By: #### 2 [id number] #### [facility] [address] [place] [address] Eosinophils #/vol (Bld) 0.05 10*3/uL Normal 0.04-0.50 [facility] Comment on above: Performed By: #### 2 [id number] #### [facility] [address] [place] [address] Eosinophils/100 WBC (Bld) 0.6 % Normal 0.0-8.1 [facility] Comment on above: Performed By: #### 2 [id number] #### [facility] [address] [place] [address] Erythrocyte distribution width Ratio (RBC) 13.3 % Normal 12.0-15.4 [facility] Comment on above: Performed By: #### 2 [id number] #### [facility] [address] [place] [address] Hematocrit Volume Fraction (Bld) 38.6 % Normal 36.5-46.6 [facility] Comment on above: Performed By: #### 2 [id number] #### [facility] [address] [place] [address] Hemoglobin mass conc (Bld) 12.2 g/dL Normal 11.8-15.3 [facility] Comment on above: Performed By: #### 2 [id number] #### [facility] [address] [place] [address] Imm Grans Absolute 0.02 10*3/uL Normal 0.00-0.21 [facility] Comment on above: Performed By: #### 2 [id number] #### [facility] [address] [place] [address] Immature granulocytes #/vol (Bld) 0.3 % Normal [facility] Comment on above: Performed By: #### 2 [id number] #### [facility] [address] [place] [address] Lymphocytes #/vol (Bld) 2.07 10*3/uL Normal 0.40-2.84 [facility] Comment on above: Performed By: #### 2 [id number] #### [facility] [address] [place] [address] Lymphocytes/100 WBC (Bld) 25.9 % Normal 15.7-50.5 [facility] Comment on above: Performed By: #### 2 [id number] #### [facility] [address] [place] [address] MCH Entitic mass (RBC) 27.9 pg Normal 27.5-33.0 [facility] Comment on above: Performed By: #### 2 [id number] #### [facility] [address] [place] [address] MCHC mass conc (RBC) 31.6 g/dL Normal 30.1-35.0 [facility] Comment on above: Performed By: #### 2 [id number] #### [facility] [address] [place] [address] MCV Entitic volume (RBC) 88.3 fL Normal 85.4-100.0 [facility] Healthcare Comment on above: Performed By: #### 2 [id number] #### [facility] [address] [place] [address] Monocytes #/vol (Bld) 0.38 10*3/uL Normal 0.25-0.83 [facility] Comment on above: Performed By: #### 2 [id number] #### [facility] [address] [place] [address] Monocytes/100 WBC (Bld) 4.8 % Normal 4.8-12.7 [facility] Comment on above: Performed By: #### 2 [id number] #### [facility] [address] [place] [address] Neutrophils Absolute 5.43 10*3/uL Normal 1.95-6.85 [facility] Healthcare Comment on above: Performed By: #### 2 [id number] #### [facility] [address] [place] [address] Neutrophils/100 WBC (Bld) 68.0 % Normal 36.8-73.2 [facility] Comment on above: Performed By: #### 2 [id number] #### [facility] [address] [place] [address] NRBC Absolute 0.00 10*3/uL Normal [facility] Comment on above: Performed By: #### 2 [id number] #### [facility] [address] [place] [address] NRBC Automated 0.0 /100{WBCs} Normal [facility] Comment on above: Performed By: #### 2 [id number] #### [facility] [address] [place] [address] Platelet mean volume Entitic volume (Bld) 10.0 fL Normal 9.9-12.1 [facility] Healthcare Comment on above: Performed By: #### 2 [id number] #### [facility] [address] [place] [address] Platelets #/vol (Bld) 322 10*3/uL Normal 155-404 [facility] Comment on above: Performed By: #### 2 [id number] #### [facility] [address] [place] [address] RBC #/vol (Bld) 4.37 10*6/uL Normal 3.85-5.10 [facility] Healthcare Comment on above: Performed By: #### 2 [id number] #### [facility] [address] [place] [address] RDW SD 43.1 fL Normal 39.3-48.6 [facility] Comment on above: Performed By: #### 2 [id number] #### [facility] [address] [place] [address] WBC #/vol (Bld) 8.0 10*3/uL Normal 4.4-9.9 [facility] Comment on above: Performed By: #### 2 [id number] #### [facility] [address] [place] [address] Comprehensive Metabolic Pane estrella 09-08-2017 Albumin mass conc 3.9 g/dL Normal 3.4-5.0 [facility] Healthcare Comment on above: Performed By: #### 1 [id number] #### [facility] [address] [place] [address] Albumin/Globulin mass ratio 1.0 {ratio} Normal 0.9-2.4 [facility] Healthcare Comment on above: Performed By: #### 1 [id number] #### [facility] [address] [place] [address] ALP enzyme act/vol 51 U/L Normal 45-117 [facility] Comment on above: Performed By: #### 1 [id number] #### [facility] [address] [place] [address] ALT enzyme act/vol 9 U/L Normal 7-45 [facility] Comment on above: Performed By: #### 1 [id number] #### [facility] [address] [place] [address] Anion gap molar conc 9 mmol/L Low 10-20 [facility] Comment on above: Performed By: #### 1 [id number] #### [facility] [address] [place] [address] AST enzyme act/vol 18 U/L Normal 13-39 [facility] Healthcare Comment on above: Performed By: #### 1 [id number] #### [facility] [address] [place] [address] Bilirubin mass conc 0.3 mg/dL Normal 0.0-1.2 [facility] Healthcare Comment on above: Performed By: #### 1 [id number] #### [facility] [address] [place] [address] Calcium mass conc 9.1 mg/dL Normal 8.6-10.3 [facility] Comment on above: Performed By: #### 1 [id number] #### [facility] [address] [place] [address] Chloride molar conc 104 mmol/L Normal 98-107 [facility] Healthcare Comment on above: Performed By: #### 1 [id number] #### [facility] [address] [place] [address] Creatinine mass conc 0.75 mg/dL Normal 0.50-1.05 [facility] Comment on above: Performed By: #### 1 [id number] #### [facility] [address] [place] [address] GFR/1.73 sq M.predicted MDRD vol rate/area mL/min/{1.73_m2} Normal [facility] Healthcare Comment on above: Result Comment: Inte rpretation for Chronic Kidney Disease: Stages 1&2 >60 Healthy or potential kidney damage. Mild decrease of GFR. Stage 3 30-59 Moderate decrease of GFR. Stage 4 15-29 Severe decrease of GFR. Stage 5 <15 Kidney failure or on dialysis. Performed By: #### 1 [id number] #### [facility] [address] [place] [address] Glucose mass conc 86 mg/dL Normal 70-100 [facility] Comment on above: Performed By: #### 1 [id number] #### [facility] [address] [place] [address] HCO3 molar conc (Bld) 27 mmol/L Normal 21-32 [facility] Comment on above: Performed By: #### 1 [id number] #### [facility] [address] [place] [address] Potassium molar conc 3.7 mmol/L Normal 3.5-5.1 [facility] Healthcare Comment on above: Performed By: #### 1 [id number] #### [facility] [address] [place] [address] Protein mass conc 7.7 g/dL Normal 6.4-8.2 [facility] Comment on above: Performed By: #### 1 [id number] #### [facility] [address] [place] [address] Sodium molar conc 136 mmol/L Normal 136-145 [facility] Comment on above: Performed By: #### 1 [id number] #### [facility] [address] [place] [address] Urea nitrogen mass conc 8 mg/dL Normal 6-23 [facility] Comment on above: Performed By: #### 1 [id number] #### [facility] [address] [place] [address] Urea nitrogen/Creatinine mass ratio 11 mg/mg Normal 5-25 [facility] Comment on above: Performed By: #### 1 [id number] #### [facility] [address] [place] [address] ESR, Westergrenon 09-08-2017 ESR, Westergren 47 mm/h High 0-20 [facility] Comment on above: Performed By: #### 2 [id number] #### [facility] [address] [place] [address] Miscellaneous ARUP Ordero n 09-08-2017 [facility] Test Name SEE NOTE Abnormal [facility] Comment on above: Result Comment: Test name [...] hemolysis. Test developed and characteristics determined by [employer]. See Compliance Statement B: [email or web address] Performed by [employer], [address] [place] [address] [email or web address], Enrique Rivera MD - Lab. Director Performed By: #### M [facility] #### [address] [address] Vital Signs Date Time Vital Sign Value Performing Clinician Facility 11-17-2024 08:02-0400 Body height 160 cm Matthew Orozco DO Work Phone: [facility] 11-17-2024 08:02-0400 Body mass index (BMI) [Ratio] 36.49 kg/m2 Matthewjoaquina Orozco DO Work Phone: [facility] 11-17-2024 08:02-0400 Body temperature 96.6 [degF] Matthewjoaquina Orozco DO Work Phone: [facility] 11-17-2024 08:02-0400 Body weight 93.44 kg Matthewjoaquina Orozco DO Work Phone: [facility] 11-17-2024 08:02-0400 Diastolic blood pressure 76 mm[Hg] Matthew Orozco DO Work Phone: [facility] 11-17-2024 08:02-0400 Systolic blood pressure 118 mm[Hg] Matthewjoaquina Orozco DO Work Phone: [facility] 11-09-2024 11:45-0400 Diastolic blood pressure 94 mm[Hg] Padma Ware MD Work Phone: [facility] 11-09-2024 11:45-0400 Heart rate 70 /min Padma Ware MD Work Phone: [facility] 11-09-2024 11:45-0400 Respiratory rate 15 /min Padma Ware MD Work Phone: [facility] 11-09-2024 11:45-0400 SaO2% (BldA) [Mass fraction] 99 % Padma Ware MD Work Phone: [facility] 11-09-2024 11:45-0400 Systolic blood pressure 134 mm[Hg] Padma Ware MD Work Phone: [facility] 11-09-2024 11:25-0400 Body temperature 97 [degF] Padma Ware MD Work Phone: [facility] 11-09-2024 10:03-0400 Body height 160 cm Padma Ware MD Work Phone: [facility] 11-09-2024 10:03-0400 Body mass index (BMI) [Ratio] 36.49 kg/m2 Padma Ware MD Work Phone: [facility] 11-09-2024 10:03-0400 Body weight 93.44 kg Padma Ware MD Work Phone: [facility] 08-30-2024 09:38-0400 Body height 160 cm Padma Ware MD Work Phone: [facility] 08-30-2024 09:38-0400 Body mass index (BMI) [Ratio] 37.02 kg/m2 Padma Ware MD Work Phone: [facility] 08-30-2024 09:38-0400 Body temperature 97.3 [degF] Padma Ware MD Work Phone: [facility] 08-30-2024 09:38-0400 Body weight 94.8 kg Padma Ware MD Work Phone: [facility] 08-30-2024 09:38-0400 Diastolic blood pressure 106 mm[Hg] Padma Ware MD Work Phone: [facility] 08-30-2024 09:38-0400 Heart rate 90 /min Padma Ware MD Work Phone: [facility] 08-30-2024 09:38-0400 Respiratory rate 16 /min Padma Ware MD Work Phone: [facility] 08-30-2024 09:38-0400 SaO2% (BldA) [Mass fraction] 96 % Padma Ware MD Work Phone: [facility] 08-30-2024 09:38-0400 Systolic blood pressure 152 mm[Hg] Padma Ware MD Work Phone: [facility] 08-19-2024 08:00-0400 Body mass index (BMI) [Ratio] 37.02 kg/m2 Kiko Aburto APRN-LORI Work Phone: [facility] 08-19-2024 08:00-0400 Body temperature 97.7 [degF] Kiko Maloneyrton [employer] TECHN[employer] Work Phone: [facility] 08-19-2024 08:00-0400 Body weight 94.8 kg Kiko Leaverton [employer] TECHNICIAN Work Phone: [facility] 08-19-2024 08:00-0400 Diastolic blood pressure 92 mm[Hg] Kiko Leaverton [employer] TECHNICIAN Work Phone: [facility] 08-19-2024 08:00-0400 Heart rate 73 /min Kiko Leaverton [employer] TECHNICIAN Work Phone: [facility] 08-19-2024 08:00-0400 Respiratory rate 18 /min Kiko Leaverton [employer] TECHNICIAN Work Phone: [facility] 08-19-2024 08:00-0400 SaO2% (BldA) [Mass fraction] 95 % Kikokaro Maloneyrton [employer] TECHNICIAN Work Phone: [facility] 08-19-2024 08:00-0400 Systolic blood pressure 137 mm[Hg] Kiko Jacksonrton [employer] TECHNICIAN Work Phone: [facility] 07-05-2024 10:41-0500 Body height 160 cm Padma Ware MD Work Phone: [facility] 07-05-2024 10:41-0500 Body mass index (BMI) [Ratio] 36.31 kg/m2 Padma Ware MD Work Phone: [facility] 07-05-2024 10:41-0500 Body temperature 97.5 [degF] Padma Ware MD Work Phone: [facility] 07-05-2024 10:41-0500 Body weight 92.99 kg Padma Ware MD Work Phone: [facility] 02-18-2025 10:41-0500 Diastolic blood pressure 98 mm[Hg] Padma Ware MD Work Phone: [facility] 07-05-2024 10:41-0500 Heart rate 83 /min Padma Ware MD Work Phone: [facility] 07-05-2024 10:41-0500 Respiratory rate 16 /min Padma Ware MD Work Phone: [facility] 07-05-2024 10:41-0500 Systolic blood pressure 144 mm[Hg] Padma Ware MD Work Phone: [facility] 04-20-2024 12:33-0500 Body temperature 96.8 [degF] Elena Kelsey MD Work Phone: [facility] 04-20-2024 12:33-0500 Diastolic blood pressure 97 mm[Hg] Elena Kelsey MD Work Phone: [facility] 04-20-2024 12:33-0500 Heart rate 99 /min Elena Kelsey MD Work Phone: [facility] 04-20-2024 12:33-0500 Respiratory rate 18 /min Elena Kelsey MD Work Phone: [facility] 04-20-2024 12:33-0500 SaO2% (BldA) [Mass fraction] 100 % Elena Kelsey MD Work Phone: [facility] 04-20-2024 12:33-0500 Systolic blood pressure 138 mm[Hg] Elena Kelsey MD Work Phone: [facility] 04-16-2024 17:10-0500 Body mass index (BMI) [Ratio] 36.32 kg/m2 Elena Kelsey MD Work Phone: [facility] 04-16-2024 17:10-0500 Body weight 93 kg Elena Kelsey MD Work Phone: [facility] 04-16-2024 10:07-0500 Body height 160 cm Elena Kelsey MD Work Phone: [facility] 03-02-2024 09:32-0400 Body height 160 cm Binu Alonzolean [employer] TECHN[employer]IAN Work Phone: [facility] 03-02-2024 09:32-0400 Body mass index (BMI) [Ratio] 37.98 kg/m2 Binu Soptelean [employer] TECHNICIAN Work Phone: [facility] 03-02-2024 09:32-0400 Body weight 97.25 kg Binu Soptelean [employer] TECHNICIAN Work Phone: [facility] 03-02-2024 09:32-0400 Diastolic blood pressure 102 mm[Hg] Binu Soptelean [employer] TECHNICIAN Work Phone: [facility] 03-02-2024 09:32-0400 Heart rate 87 /min Binu Soptelean [employer] TECHNICIAN Work Phone: [facility] 03-02-2024 09:32-0400 SaO2% (BldA) [Mass fraction] 96 % Binu Soptelean [employer] TECHNICIAN Work Phone: [facility] 03-02-2024 09:32-0400 Systolic blood pressure 138 mm[Hg] Binu Soptelean [employer] TECHNICIAN Work Phone: [facility] 12-30-2023 08:30-0400 Body height 160 cm Leoncio Sparrow MD Work Phone: [facility] 12-30-2023 08:30-0400 Body mass index (BMI) [Ratio] 38.09 kg/m2 Leoncio Sparrow MD Work Phone: [facility] 12-30-2023 08:30-0400 Body weight 97.52 kg Leoncio Sparrow MD Work Phone: [facility] 12-30-2023 08:30-0400 Diastolic blood pressure 92 mm[Hg] Leoncio Sparrow MD Work Phone: [facility] 12-30-2023 08:30-0400 Heart rate 87 /min Leoncio Sparrow MD Work Phone: [facility] 12-30-2023 08:30-0400 Systolic blood pressure 135 mm[Hg] Leoncio Sparrow MD Work Phone: [facility] 09-01-2023 11:45-0400 Body height 160 cm Padma Ware MD Work Phone: [facility] 09-01-2023 11:45-0400 Body mass index (BMI) [Ratio] 37.91 kg/m2 Padma Ware MD Work Phone: [facility] 09-01-2023 11:45-0400 Body temperature 97.7 [degF] Padma Ware MD Work Phone: [facility] 09-01-2023 11:45-0400 Body weight 97.07 kg Padma Ware MD Work Phone: [facility] 09-01-2023 11:45-0400 Diastolic blood pressure 109 mm[Hg] Padma Ware MD Work Phone: [facility] 09-01-2023 11:45-0400 Heart rate 78 /min Padma Ware MD Work Phone: [facility] 09-01-2023 11:45-0400 Respiratory rate 18 /min Padma Ware MD Work Phone: [facility] 09-01-2023 11:45-0400 Systolic blood pressure 147 mm[Hg] Padma Ware MD Work Phone: [facility] 07-15-2023 08:11-0500 Body mass index (BMI) [Ratio] 37.12 kg/m2 Kiko DIAZ Work Phone: [facility] 07-15-2023 08:11-0500 Body temperature 97.7 [degF] Kiko Aburto [employer] TECHN[employer] Work Phone: [facility] 07-15-2023 08:11-0500 Body weight 95.5 kg Kiko Aburto [employer] TECHNICIAN Work Phone: [facility] 07-15-2023 08:11-0500 Diastolic blood pressure 97 mm[Hg] Kiko Maloneyrton [employer] TECHNICIAN Work Phone: [facility] 07-15-2023 08:11-0500 Heart rate 76 /min Kiko Aburto [employer] TECHNICIAN Work Phone: [facility] 07-15-2023 08:11-0500 Respiratory rate 16 /min Kiko Maloneyrton [employer] TECHNICIAN Work Phone: [facility] 07-15-2023 08:11-0500 SaO2% (BldA) [Mass fraction] 98 % Kiko Nielsonon [employer] TECHNICIAN Work Phone: [facility] 07-15-2023 08:11-0500 Systolic blood pressure 135 mm[Hg] Kiko Maloneyrtgavino [employer] TECHNICIAN Work Phone: [facility] 04-22-2023 13:48-0500 Body temperature 98.4 [degF] Parth Hirsch MD Work Phone: [facility] 04-22-2023 13:48-0500 Diastolic blood pressure 103 mm[Hg] Parth Hirsch MD Work Phone: [facility] 04-22-2023 13:48-0500 Systolic blood pressure 156 mm[Hg] Parth Hirsch MD Work Phone: [facility] 03-13-2023 09:38-0400 Body height 160 cm Mariia RAMSEY-Orlando Work Phone: [facility] 03-13-2023 09:38-0400 Body mass index (BMI) [Ratio] 36.76 kg/m2 Mariia Dolores PA-C Work Phone: [facility] 03-13-2023 09:38-0400 Body temperature 97.2 [degF] Mariia Dolores PA-C Work Phone: [facility] 03-13-2023 09:38-0400 Body weight 94.1 kg Mariia Dolores PA-C Work Phone: [facility] 03-13-2023 09:38-0400 Diastolic blood pressure 97 mm[Hg] Mariia Dolores PA-C Work Phone: [facility] 03-13-2023 09:38-0400 Heart rate 72 /min Mariia Dolores PA-C Work Phone: [facility] 03-13-2023 09:38-0400 Respiratory rate 16 /min Mariia Dolores PA-C Work Phone: [facility] 03-13-2023 09:38-0400 SaO2% (BldA) [Mass fraction] 97 % Mariia Dolores PA-C Work Phone: [facility] 03-13-2023 09:38-0400 Systolic blood pressure 143 mm[Hg] Mariia Dolores PA-C Work Phone: [facility] 02-17-2023 09:14-0400 Body height 160 cm Scarlett Martin APRN-PAINT PREP TECHNICIAN Work Phone: [facility] 02-17-2023 09:14-0400 Body mass index (BMI) [Ratio] 37.02 kg/m2 Scarlett Martin APRN-PAINT PREP TECHNICIAN Work Phone: [facility] 02-17-2023 09:14-0400 Body weight 94.8 kg Scarlett Martin APRN-PAINT PREP TECHNICIAN Work Phone: [facility] 02-17-2023 09:14-0400 Diastolic blood pressure 96 mm[Hg] Scarlett Martin [employer] TECHNICIAN Work Phone: [facility] 02-17-2023 09:14-0400 Heart rate 88 /min Scarlett Martin [employer] TECHNICIAN Work Phone: [facility] 02-17-2023 09:14-0400 Systolic blood pressure 149 mm[Hg] Scarlett Martin [employer] TECHNICIAN Work Phone: [facility] 12-11-2022 10:16-0400 Body temperature 97.5 [degF] Matthew Melody Ernesto Work Phone: -[facility]- [place] [facility] [address] Work Phone: 12-11-2022 10:16-0400 Diastolic blood pressure 103 mm[Hg] Matthew Melody Ernesto Work Phone: -[facility]- [place] [facility] [address] Work Phone: 12-11-2022 10:16-0400 Systolic blood pressure 148 mm[Hg] Matthew Melody Ernesto Work Phone: -[facility] [place] [facility] [address] Work Phone: 12-11-2022 10:16-0400 0 1 Matthew Melody Ernesto Work Phone: -[facility] [place] [facility] Work Phone: Comment on above: [facility] 09-09-2022 13:04-0400 Body temperature 97.9 [degF] Matthew Melody Ernesto Work Phone: [facility] Work Phone: 09-09-2022 13:04-0400 Diastolic blood pressure 99 mm[Hg] Matthew Melody Ernesto Work Phone: [facility] [facility] Work Phone: 09-09-2022 13:04-0400 Systolic blood pressure 144 mm[Hg] Matthew Melody Ernesto [facility] Work Phone: 09-09-2022 13:04-0400 0 1 Matthew Orozco Work Phone[facility] Work Phone: Comment on above: [facility] 05-27-2022 11:57-0500 Body height 160.02 cm Matthew Orozco Work Phone: [facility] [facility] Work Phone: 05-27-2022 11:57-0500 Body mass index (BMI) [Ratio] 33.48 kg/m2 Matthew Orozco Work Phone: [facility] [facility] Work Phone: 05-27-2022 11:57-0500 Body surface area Derived from formula 1.89 m2 Matthew Orozco Work Phone: [facility] Work Phone: 05-27-2022 11:57-0500 Body temperature 98.1 [degF] Matthew Orozco Work Phone: [facility] Work Phone: 05-27-2022 11:57-0500 Body weight 85.73 kg Matthew Orozco Work Phone: [facility] Work Phone: 05-27-2022 11:57-0500 Diastolic blood pressure 84 mm[Hg] Matthew Orozco Work Phone: [facility] Work Phone: 05-27-2022 11:57-0500 Systolic blood pressure 133 mm[Hg] Matthew Orozco Work Phone: [facility] [place] [address] Work Phone: 05-27-2022 11:57-0500 0 1 Matthew Orozco Work Phone: [facility] [place] [address] Work Phone: Comment on above: [facility] 01-21-2022 09:59-0400 Body height 160.02 cm Matthew Orozco Work Phone: [facility] [address] Work Phone: 01-21-2022 09:59-0400 Body mass index (BMI) [Ratio] 31.89 kg/m2 Matthew Orozco Work Phone: [facility] [address] Work Phone: 01-21-2022 09:59-0400 Body surface area Derived from formula 1.85 m2 Matthew Orozco Work Phone: [facility] [address] Work Phone: 01-21-2022 09:59-0400 Body temperature 97.5 [degF] Matthew Orozco Work Phone: [facility] [address] Work Phone: 01-21-2022 09:59-0400 Body weight 81.65 kg Matthew Orozco Work Phone: [facility] [address] Work Phone: 01-21-2022 09:59-0400 Diastolic blood pressure 88 mm[Hg] Matthew Orozco Work Phone: [facility] [address] Work Phone: 01-21-2022 09:59-0400 Systolic blood pressure 126 mm[Hg] Matthew Orozco Work Phone: [facility] Work Phone: 01-21-2022 09:59-0400 0 1 Matthew [facility]rozco [facility] [address] Work Phone: Comment on above: [facility] 11-26-2021 14:09-0400 Body height 160.02 cm Matthew Orozco Work Phone: [facility] Work Phone: 11-26-2021 14:09-0400 Body mass index (BMI) [Ratio] 31.42 kg/m2 Matthew Orozco Work Phone: [facility] Work Phone: 11-26-2021 14:09-0400 Body surface area Derived from formula 1.84 m2 Matthew Orozco Work Phone: [facility] Work Phone: 11-26-2021 14:09-0400 Body temperature 97.5 [degF] Matthew Orozco Work Phone: [facility] Work Phone: 11-26-2021 14:09-0400 Body weight 80.46 kg Matthew Orozco Work Phone: [facility] Work Phone: 11-26-2021 14:09-0400 Diastolic blood pressure 83 mm[Hg] Matthew Orozco Work Phone: [facility] Work Phone: 11-26-2021 14:09-0400 Heart rate 85 /min Matthew Orozco Work Phone: [facility] Work Phone: 11-26-2021 14:09-0400 Systolic blood pressure 123 mm[Hg] Matthew Oliver Ernesto Work Phone: [facility] Work Phone: 10-08-2021 09:19-0400 Body height 160.02 cm Matthew Orozco Work Phone: [facility] [place] [facility] [address] Work Phone: 10-08-2021 09:19-0400 Body mass index (BMI) [Ratio] 31.18 kg/m2 Matthew Orozco Work Phone: [facility] [place] [facility] [address] Work Phone: 10-08-2021 09:19-0400 Body surface area Derived from formula 1.83 m2 Matthew Oliver Ernesto Work Phone: -[facility] [place] [facility] [address] Work Phone: 10-08-2021 09:19-0400 Body temperature 98.3 [degF] Matthew Orozco Work Phone: [facility] [place] [facility] [address] Work Phone: 10-08-2021 09:19-0400 Body weight 79.83 kg Matthew Orozco Work Phone: [facility] [place] [facility] [address] Work Phone: 10-08-2021 09:19-0400 Diastolic blood pressure 91 mm[Hg] Matthew Orozco Work Phone: [facility] [place] [facility] [address] Work Phone: 10-08-2021 09:19-0400 Systolic blood pressure 132 mm[Hg] Matthew Oliver Ernesto Work Phone: [facility]- [place] [facility] 250 Work Phone: 10-08-2021 09:19-0400 0 1 Matthew Oliver Ernesto Work Phone: [facility]EROtolaryngologSt[facility] Work Phone: Comment on above: PainScale 09-03-2021 10:07-0400 Body height 160.02 cm Matthew Orozco Work Phone: [facility] Work Phone: 09-03-2021 10:07-0400 Body mass index (BMI) [Ratio] 34.19 kg/m2 Matthew Orozco Work Phone: [facility] Work Phone: 09-03-2021 10:07-0400 Body surface area Derived from formula 1.9 m2 Matthew Orozco Work Phone: [facility] Work Phone: 09-03-2021 10:07-0400 Body temperature 96.6 [degF] Matthew Orozco Work Phone: [facility] Work Phone: 09-03-2021 10:07-0400 Body weight 87.54 kg Matthew Orozco Work Phone: [facility] Work Phone: 09-03-2021 10:07-0400 Diastolic blood pressure 97 mm[Hg] Matthew Orozco Work Phone: [facility] Work Phone: 09-03-2021 10:07-0400 Heart rate 78 /min Matthew Orozco Work Phone: [facility] Work Phone: 09-03-2021 10:07-0400 Systolic blood pressure 145 mm[Hg] Matthew Oliver Ernesto Work Phone: [facility] Work Phone: 08-21-2021 14:54-0400 Body height 160.02 cm Matthew Orozco Work Phone: DQ-Ihktpudbazjxz-N [facility] [place] 1600 Work Phone: 08-21-2021 14:54-0400 Body mass index (BMI) [Ratio] 32.59 kg/m2 Matthew Orozco Work Phone: IP-Nmbuntjsrawbg-E [facility] [place] [facility] Work Phone: 08-21-2021 14:54-0400 Body surface area Derived from formula 1.87 m2 Matthew Orozco Work Phone: JH-Usxxtgvguzzug-C [facility] 1600 Work Phone: 08-21-2021 14:54-0400 Body temperature 98 [degF] Matthew Orozco Work Phone: LZ-Ceuiidmphqghs-L [facility] 1600 Work Phone: 08-21-2021 14:54-0400 Body weight 83.46 kg Matthew Orozco Work Phone: YW-Xdetbsieerxlt-G [facility] [place] [address] Work Phone: 08-21-2021 14:54-0400 Diastolic blood pressure 105 mm[Hg] Matthew Orozco Work Phone: MI-Hmltkhegsfkik-C [facility] 1600 Work Phone: 08-21-2021 14:54-0400 Heart rate 81 /min Matthew Orozco Work Phone: JL-Ihqapxlffuufd-F [facility] [place] [address] Work Phone: 08-21-2021 14:54-0400 Systolic blood pressure 145 mm[Hg] Matthew Orozco Work Phone: TH-Sblsccpwjlnac-L [facility] 1600 Work Phone: 07-09-2021 10:15-0500 Body height 160.02 cm Matthew Orozco Work Phone: [facility]EROtolaryngologyS[facility] Work Phone: 07-09-2021 10:15-0500 Body mass index (BMI) [Ratio] 33.83 kg/m2 Matthew Orozco Work Phone: [facility]odo[facility]- [facility] 250 Work Phone: 07-09-2021 10:15-0500 Body surface area Derived from formula 1.9 m2 Matthew Orozco Work Phone: [facility]odo[facility]- [facility] 250 Work Phone: 07-09-2021 10:15-0500 Body temperature 98.3 [degF] Matthew Orozco Work Phone: [facility]odo[facility]- [facility] 250 Work Phone: 07-09-2021 10:15-0500 Body weight 86.64 kg Matthew Orozco Work Phone: [facility]EROtolarynB[facility] 250 Work Phone: 07-09-2021 10:15-0500 Diastolic blood pressure 86 mm[Hg] Matthew Orozco Work Phone: [facility] 250 Work Phone: 07-09-2021 10:15-0500 Systolic blood pressure 130 mm[Hg] Matthew Orozco Work Phone: [facility]tolarynBaptist [facility] 250 Work Phone: 04-24-2021 09:08-0500 Body height 160.02 cm Matthew Oliver Ernesto Work Phone: PE-Cboqshdl-Gtgohn [place] 1500 Work Phone: 04-24-2021 09:08-0500 Body mass index (BMI) [Ratio] 34.37 kg/m2 Matthew Oliver Ernesto Work Phone: EY-Srcqvnev-Nvcaac [place] [address] Work Phone: 04-24-2021 09:08-0500 Body surface area Derived from formula 1.91 m2 Matthew Orozco Work Phone: IU-Gohlyrqx-Fwmsmp [place] 1500 Work Phone: 04-24-2021 09:08-0500 Body weight 88 kg Matthew Orozco Work Phone: FJ-Eunryccx-Oihlbk [place] 1500 Work Phone: 04-24-2021 09:08-0500 Diastolic blood pressure 90 mm[Hg] Matthew Orozco Work Phone: DC-Blrgpdfu-Sbktrg [place] 1500 Work Phone: 04-24-2021 09:08-0500 Heart rate 88 /min Matthew Orozco Work Phone: FI-Nnwkngfm-Nhftgq [place] 1500 Work Phone: 04-24-2021 09:08-0500 Systolic blood pressure 133 mm[Hg] Matthew Orozco Work Phone: JK-Rxyqzhjd-Gmzxrg [place] 1500 Work Phone: 04-24-2021 09:08-0500 0 1 Matthew Orozco Work Phone: RV-Ylgfmaes-Ddibkl [place] 1500 Work Phone: Comment on above: PainScale [...] 160.02 cm Matthew Orozco Work Phone: MG-Otolaryngology- [facility] Work Phone: 02-26-2021 10:02-0400 Body mass [...] 160.02 cm Matthew Orozco Work Phone: [facility] [place] [facility] Work Phone: 11-20-2020 10:18-0400 Body mass index (BMI) [Ratio] 35.07 kg/m2 Matthew Orozco Work Phone: [facility]- [place] [facility] Work Phone: 11-20-2020 10:18-0400 Body surface area Derived from formula 1.93 m2 Matthew Orozco Work Phone: -Otolaryngology- [facility] Work Phone: 11-20-2020 10:18-0400 Body temperature 98 [degF] Matthew Orozco Work Phone: -Otolaryngology- [facility] Work Phone: 11-20-2020 10:18-0400 Body weight 89.81 kg Matthew Orozco Work Phone: [facility]odo[facility]- [facility] Work Phone: 11-20-2020 10:18-0400 Diastolic blood pressure 93 mm[Hg] Matthew Orozco Work Phone: [facility]EROtolarynlewisgale hospital [facility]- [facility] Work Phone: 11-20-2020 10:18-0400 Systolic blood pressure 135 mm[Hg] Matthew Orozco Work Phone: [facility] Center[facility]lewisg[facility]- [facility] Work Phone: 11-20-2020 10:18-0400 0 1 Matthew Orozco Work Phone: [facility] Hospitalolarynabrazo [facility]yS[facility] Work Phone: Comment on above: PainScale 06-28-2020 12:43-0500 BMI (Body Mass Index) 32.77 kg/m2 Scarlett ONTIVEROSFJ-Glkxzbgprqqrb-D [facility] 1600 Work Phone: 06-28-2020 12:43-0500 Body Temperature 98.4 [degF] Scarlett ONTIVEROS-Endocrinolog y-C [place] 1600 Work Phone: 06-28-2020 12:43-0500 Body weight 83.92 kg Scarlett Martin MG-Endocrinology -[facility] [place] [address] Work Phone: 06-28-2020 12:43-0500 BP Diastolic 70 mm[Hg] Scarlett Martin [facility]-Endocrinology -[facility] [place] [address] Work Phone: 06-28-2020 12:43-0500 BP Systolic 122 mm[Hg] Scarlett Martin [facility]-Endocrinology -[facility] [place] [address] Work Phone: 06-28-2020 12:43-0500 BSA (Body Surface Area) 1.87 m2 Scarlett Martin TK-Ujwyjpnhjiriq-R [place] [address] Work Phone: 06-28-2020 12:43-0500 Height 160.02 cm Scarlett Martin MG-Endocrinology -C [facility] 1600 Work Phone: 06-19-2020 13:14-0500 BMI (Body Mass Index) 32.77 kg/m2 Scarlett Martin YJ-Qsymhfchffmtj-F [place] 1600 Work Phone: 06-19-2020 13:14-0500 Body Temperature 96.9 [degF] Scarlett Martin MG-Endocrinolog y-C [place] [address] Work Phone: 06-19-2020 13:14-0500 Body weight 83.92 kg Scarlett Martin MG-Endocrinology -[facility] [place] [address] Work Phone: 06-19-2020 13:14-0500 BP Diastolic 92 mm[Hg] Scarlett Martin [facility]ocrinology -[facility] [place] [address] Work Phone: 06-19-2020 13:14-0500 BP Systolic 135 mm[Hg] Scarlett Martin MG-Endocrinology -C [place] [facility] 1600 Work Phone: 06-19-2020 13:14-0500 BSA (Body Surface Area) 1.87 m2 Scarlett Martin EV-Coczohdpqhfyr-L [place] [address] Work Phone: 06-19-2020 13:14-0500 Height 160.02 cm Scarlett Martin MG-Endocrinology -C [place] [address] Work Phone: 06-19-2020 13:14-0500 Pulse (Heart Rate) 55 /min Scarlett ONTIVEROS-Endocrinol ogy-C [place] [facility] [address] Work Phone: 06-19-2020 13:14-0500 Respiratory Rate 16 /min Scarlett Martin -Endocrinolog y-C [facility] [address] Work Phone: 06-07-2019 16:32-0500 BMI (Body Mass Index) 32.59 kg/m2 Padma Orozco [facility] Work Phone: 06-07-2019 16:32-0500 Body Temperature 97.9 [degF] Padma Orozco [facility] Work Phone: 06-07-2019 16:32-0500 Body weight 83.46 kg Padma Ernesto [facility] Work Phone: 06-07-2019 16:32-0500 BP Diastolic 86 mm[Hg] Padma Orozco [facility] Work Phone: 06-07-2019 16:32-0500 BP Systolic 127 mm[Hg] Padma Orozco [facility] Work Phone: 06-07-2019 16:32-0500 BSA (Body Surface Area) 1.87 m2 Padma Ernesto [facility] Work Phone: 06-07-2019 16:32-0500 Height 160.02 cm Padma Orozco [facility] Work Phone: 06-07-2019 16:32-0500 Pulse (Heart Rate) 71 /min Padma Orozco [facility] Work Phone: 06-07-2019 16:32-0500 Pulse Oximetry 100 % Padma Orozco [facility] Work Phone: 06-07-2019 16:32-0500 0 1 Padma Orozco [facility] Work Phone: Comment on above: Pain Scale 05-31-2019 15:39-0500 BMI (Body Mass Index) 32.77 kg/m2 Padma Orozco [facility] Work Phone: 05-31-2019 15:39-0500 Body Temperature 98.5 [degF] Padma Orozco [facility] Work Phone: 05-31-2019 15:39-0500 Body weight 83.92 kg Padma Orozco [facility] Work Phone: 05-31-2019 15:39-0500 BP Diastolic 68 mm[Hg] Padma Orozco [facility] Work Phone: 05-31-2019 15:39-0500 BP Systolic 108 mm[Hg] Padma Orozco [facility] Work Phone: 05-31-2019 15:39-0500 BSA (Body Surface Area) 1.87 m2 Padma Orozco [facility] Work Phone: 05-31-2019 15:39-0500 Height 160.02 cm Padma Orozco [facility] Work Phone: 04-27-2019 12:05-0500 BMI (Body Mass Index) 32.24 kg/m2 Padma Orozco [facility] Work Phone: 04-27-2019 12:05-0500 Body weight 82.56 kg Padma Orozco [facility] Work Phone: 04-27-2019 12:05-0500 BP Diastolic 87 mm[Hg] Padma Orozco [facility] Work Phone: 04-27-2019 12:05-0500 BP Systolic 130 mm[Hg] Padma Orozco [facility] Work Phone: 04-27-2019 12:05-0500 BSA (Body Surface Area) 1.86 m2 Padma Orozco [facility] Work Phone: 04-27-2019 12:05-0500 Height 160.02 cm Padma Orozco [facility] Work Phone: 04-27-2019 12:05-0500 Pulse (Heart Rate) 71 /min Padma Orozco [facility] Work Phone: 04-12-2019 13:41-0500 BMI (Body Mass Index) 31.71 kg/m2 Padma Orozco [facility] Work Phone: 04-12-2019 13:41-0500 Body weight 81.19 kg Padma Orozco [facility] Work Phone: 04-12-2019 13:41-0500 BP Diastolic 86 mm[Hg] Padma Orozco [facility] Work Phone: 04-12-2019 13:41-0500 BP Systolic 136 mm[Hg] Padma Orozco [facility] Work Phone: 04-12-2019 13:41-0500 BSA (Body Surface Area) 1.84 m2 Padma Orozco [facility] Work Phone: 04-12-2019 13:41-0500 Height 160.02 cm Padma Orozco [facility] Work Phone: 04-12-2019 13:41-0500 Pulse (Heart Rate) 126 /min Padma Orozco [facility] Work Phone: 04-12-2019 13:41-0500 Respiratory Rate 16 /min Padma Orozco [facility] Work Phone: 09-21-2018 12:50-0400 BMI (Body Mass Index) 32.06 kg/m2 Padma Orozco [facility] [place] [facility] Work Phone: 09-21-2018 12:50-0400 BP Diastolic 72 mm[Hg] Padma Orozco [facility]aryngolog y- [place] [facility] Work Phone: 09-21-2018 12:50-0400 BP Systolic 129 mm[Hg] Padma Orozco [facility]aryngolog y- [place] [facility] Work Phone: 09-21-2018 12:50-0400 BSA (Body Surface Area) 1.85 m2 Padma Orozco [facility]- [place] [facility] Work Phone: 09-21-2018 12:50-0400 Height 160.02 cm Padma Orozco [facility]olog y- [place] [facility] Work Phone: 09-21-2018 12:50-0400 Pulse (Heart Rate) 92 /min Padma Orozco MP-Otolaryngo logy- [place] [facility] Work Phone: 09-21-2018 12:50-0400 Respiratory Rate 16 /min Padma Orozco [facility]-Otolaryngolo gy- [place] [facility] Work Phone: 09-21-2018 12:50-0400 Weight 82.1 kg Padma Orozco [facility]aryngolog y- [place] [facility] Work Phone: 09-16-2018 16:43-0400 BMI (Body Mass Index) 32.06 kg/m2 Padma Orozco [facility] Work Phone: 09-16-2018 16:43-0400 Body Temperature 98.1 [degF] Padma Orozco [facility]- [facility] Work Phone: 09-16-2018 16:43-0400 BP Diastolic 85 mm[Hg] Padma Orozco [facility] Work Phone: 09-16-2018 16:43-0400 BP Systolic 119 mm[Hg] Padma Orozco [facility] Work Phone: 09-16-2018 16:43-0400 BSA (Body Surface Area) 1.85 m2 Padma Orozco [facility] Work Phone: 09-16-2018 16:43-0400 Height 160.02 cm Padma Orozco [facility] Work Phone: 09-16-2018 16:43-0400 Pulse (Heart Rate) 91 /min Padma Orozco [facility] Work Phone: 09-16-2018 16:43-0400 Pulse Oximetry 98 % Padma Orozco [facility] Work Phone: 09-16-2018 16:43-0400 Respiratory Rate 16 /min Padma Orozco [facility] Work Phone: 09-16-2018 16:43-0400 Weight 82.1 kg Padma Orozco [facility] Work Phone: 08-31-2018 13:37-0400 BMI (Body Mass Index) 31.89 kg/m2 Padma Orozco [facility] Work Phone: 08-31-2018 13:37-0400 Body Temperature 98.4 [degF] Padma Orozco [facility] Work Phone: 08-31-2018 13:37-0400 BP Diastolic 85 mm[Hg] Padma Orozco [facility] Work Phone: 08-31-2018 13:37-0400 BP Systolic 119 mm[Hg] Padma Orozco [facility] Work Phone: 08-31-2018 13:37-0400 BSA (Body Surface Area) 1.85 m2 Padma Orozco [facility] Work Phone: 08-31-2018 13:37-0400 Height 160.02 cm Padma Orozco [facility] Work Phone: 08-31-2018 13:37-0400 Pulse (Heart Rate) 106 /min Padma Orozco [facility] Work Phone: 08-31-2018 13:37-0400 Weight 81.65 kg Padma Orozco [facility] Work Phone: 08-31-2018 13:37-0400 0 1 Padma Orozco [facility] Work Phone: Comment on above: Pain Scale 08-30-2018 16:05-0400 BMI (Body Mass Index) 32.06 kg/m2 Padma Orozco [facility] Work Phone: 08-30-2018 16:05-0400 Body Temperature 98.2 [degF] Padma Orozco [facility] Work Phone: 08-30-2018 16:05-0400 BP Diastolic 88 mm[Hg] Padma Orozco [facility] Work Phone: 08-30-2018 16:05-0400 BP Systolic 134 mm[Hg] Padma Orozco [facility] Work Phone: 08-30-2018 16:05-0400 BSA (Body Surface Area) 1.85 m2 Padma Orozco [facility] Work Phone: 08-30-2018 16:05-0400 Height 160.02 cm Padma Orozco [facility] Work Phone: 08-30-2018 16:05-0400 Pulse (Heart Rate) 101 /min Padma Orozco [facility] estnhke I Work Phone: 08-30-2018 16:05-0400 Weight 82.1 kg Padma Orozco [facility] estnhke I Work Phone: 08-30-2018 16:05-0400 0 1 Padma Orozco [employer] Work Phone: Comment on above: Pain Scale 08-27-2018 11:39-0400 BMI (Body Mass Index) 31.89 kg/m2 Padma Orozco [facility] Work Phone: 08-27-2018 11:39-0400 Body Temperature 98.6 [degF] Padma Orozco [facility] estnhke I Work Phone: 08-27-2018 11:39-0400 BP Diastolic 88 mm[Hg] [facility] Work [facility]: 08-27-2018 11:39-0400 BP Systolic 122 mm[Hg] Padma Orozco [facility] estnhke I Work Phone: 08-27-2018 11:39-0400 BSA (Body Surface Area) 1.85 m2 Padma Orozco [facility] Work Phone: 08-27-2018 11:39-0400 Weight 81.65 kg Padma Orozco [facility] Work Phone: Encounters Encounter Date Encounter Type Care Provider Facility Start: 01-10-2025 End: 01-10-2025 ambulatory MILVIA ROB [facility] Start: 12-30-2024 End: 12-30-2024 ambulatory KIKO ABURTO [facility] Start: 12-16-2024 End: 12-16-2024 ambulatory KIKO ABURTO [facility] Start: 12-07-2024 End: 12-07-2024 Office outpatient visit 25 minutes Kiko Aburto [employer] Work Phone: [facility] Comment on above: Iron deficiency anem ia due to chronic blood loss (Primary Dx); Iron deficiency anemia, unspecified iron deficiency anemia type; Iron malabsorption (HHS-HCC); Crohn's disease of small and large intestines with complication (Multi) Start: 12-07-2024 End: 12-07-2024 [facility] Start: 12-06-2024 End: 12-06-2024 ambulatory MATTHEW A [facility] Start: 11-17-2024 End: 11-17-2024 Patient encounter status Matthew A Ernesto STANLEY Work Phone: [facility] Work Phone: Start: 11-17-2024 End: 11-17-2024 Periodic preventive med est patient 18-39 yrs Matthew A Ernesto STANLEY Work Phone: [facility] Comment on above: Cervical cancer scre ening (Primary Dx); Wellness examination; Morbid obesity due to excess calories (Multi); BMI 36.0-36.9,adult Start: 11-17-2024 End: 11-17-2024 ambulatory [facility] [place] [facility] Start: 11-17-2024 End: 11-17-2024 Encounter for general adult medical examination without abnormal findings [facility] [place] [facility] Start: 11-09-2024 End: 11-09-2024 Subsequent hospital visit by physician Padma Orozco MD Work Phone: [facility] Comment on above: Crohn's disease of s mall and large intestines with complication (Multi) Start: 11-09-2024 End: 11-09-2024 ambulatory PADMA OROZCO V [facility] Start: 10-28-2024 ambulatory Russ Luther DO [facility] Start: 09-07-2024 End: 09-07-[address] [facility] Start: 09-02-2024 End: 09-02-2024 ambulatory [facility] Start: 08-30-2024 End: 08-30-2024 Office outpatient visit 25 minutes Padma Orozco MD Work Phone: [facility] Comment on above: Crohn's disease of s mall and large intestines with complication (Multi) (Primary Dx) Start: 08-30-2024 End: 08-30-2024 ambulatory [facility] Ambulatory Start: 08-19-2024 End: 08-19-2024 Office outpatient visit 25 minutes Kiko Giselle Maloneybrennan [employer] TECHNICIAN Work Phone: [facility] Comment on above: Iron deficiency anem ia due to chronic blood loss (Primary Dx); Iron deficiency anemia, unspecified iron deficiency anemia type; Iron malabsorption (HHS-HCC); Crohn's disease of small and large intestines with complication (Multi) Start: 08-19-2024 End: 08-19-2024 ambulatory KIKO MALONEYGAVINO [facility] Start: 08-17-2024 End: 08-17-2024 ambulatory [facility] Start: 07-05-2024 End: 07-05-2024 Office outpatient visit 25 minutes Padma Orozco MD Work Phone: [facility] Comment on above: Crohn's disease of s mall and large intestines with complication (Multi) (Primary Dx) Start: 07-05-2024 End: 07-05-2024 ambulatory [facility] Amb[facility] Start: 06-18-2024 End: 06-18-2024 ambulatory [facility] Start: 06-18-2024 End: 06-18-2024 ambulatory [facility] Start: 04-16-2024 End: 04-20-2024 Evaluation and management of inpatient Elena Kelsey MD Work Phone: [facility] [place] [facility] Comment on above: SBO (small bowel obs truction) (Multi) (Primary Dx) Start: 03-31-2024 End: 03-31-2024 ambulatory Kendra Garcia [facility] Work Phone: Start: 03-31-2024 End: 03-31-2024 Departed Referred Kendra Garcia MD Work Phone: [facility] [place] Work Phone: Start: 03-04-2024 End: 03-04-2024 ambulatory [facility] Start: 03-02-2024 End: 03-02-2024 Office outpatient visit 15 minutes [facility] [employer] TECHNICIAN Work Phone: [facility] Comment on above: Crohn's disease of s mall and large intestines with complication (Multi) (Primary Dx) Start: 03-02-2024 End: 03-02-2024 ambulatory [facility] Ambulatory Start: 02-17-2024 End: 02-17-2024 Office outpatient visit 15 minutes Kiko L [place] [employer] TECHNICIAN Work Phone: [facility] Comment on above: Iron deficiency anem ia, unspecified iron deficiency anemia type (Primary Dx); Iron malabsorption ([facility]) Start: 02-17-2024 End: 02-17-2024 ambulatory [facility] Start: 02-16-2024 End: 02-16-2024 ambulatory [facility] Start: 12-30-2023 End: 12-30-2023 ambulatory [facility] Ambulatory Start: 12-30-2023 End: 12-30-2023 Office outpatient visit 25 minutes Leoncio Sparrow MD Work Phone: [facility] M Comment on above: Hypothyroidism, post surgical (Primary Dx) Start: 12-14-2023 End: 12-14-2023 ambulatory [facility] Start: 12-11-2023 End: 12-11-2023 ambulatory [facility] [place] [facility] Start: 09-16-2023 End: 09-16-2023 Office outpatient visit 15 minutes Kiko L [place] [employer] TECHNICIAN Work Phone: [facility] Comment on above: Iron deficiency anem ia due to chronic blood loss (Primary Dx); Iron deficiency anemia, unspecified iron deficiency anemia type; Iron malabsorption ([facility]) Start: 09-01-2023 End: 09-01-2023 Office outpatient visit 25 minutes Padma Orozco MD Work Phone: [facility] Comment on above: Crohn's disease of s mall and large intestines with complication (Multi) (Primary Dx) Start: 07-15-2023 End: 07-15-2023 Office outpatient visit 25 minutes Kiko Aburto [employer] TECHNICIAN Work Phone: [facility] Comment on above: Iron deficiency anem ia, unspecified iron deficiency anemia type Start: 04-22-2023 End: 04-22-2023 Office outpatient visit 15 minutes Parth Hirsch MD Work Phone: [facility] Comment on above: Nasal vestibulitis ( Primary Dx) Start: 03-13-2023 End: 03-13-2023 Office outpatient visit 25 minutes Mariia Bernal PA-C Work Phone: [facility] Comment on above: Iron deficiency anem ia, unspecified iron deficiency anemia type (Primary Dx); Iron malabsorption; Iron deficiency anemia due to chronic blood loss Start: 02-17-2023 End: 02-17-2023 Office outpatient visit 15 minutes Scarlett Martin [employer] TECHNICIAN Work Phone: [facility] Comment on above: Crohn's disease of b oth small and large intestine without complication (CMS/HCC) (Primary Dx) Start: 01-23-2023 AUDIT Matthew brooks Work Phone: QA-Ndatguftciajr-HUS [place] 1600 Work Phone: Start: 01-07-[address] Matthew Orozco Facility:[id number] Start: 12-11-[address] Abdullahi Bonilla Facil ity:[id number] Start: 12-11-2022 Patient encounter procedure Matthew Orozco Work Phone: XC-Czowtrztqpxstf[facility] [facility] Work Phone: Start: 11-11-2022 ambulatory Ms. Mariia Bernal Facility:[facility] Start: 11-10-[address] Matthew Orozco Facility:[id number] Start: 11-10-2022 ambulatory Mariia Bernal Facility:[id number] Start: 09-29-2022 Rx Renewal Matthew Baron as Work Phone[facility] Work Phone: Start: 09-09-[address] Abdullahi Bonilla Facil ity:[id number] Start: 09-05-[address] Tom Millard acility:[id number] Start: 08-28-2022 Chart Update Matthew Baron as Work Phone: [facility] Work Phone: Start: 08-19-[address] Padma Orozco Facility:[id number] Start: 08-19-2022 Office outpatient vi sit 25 minutes Matthew Orozco Work Phone: [facility] Work Phone: Start: 08-01-[address] Tom Millard acility:[id number] Start: 08-01-2022 Patient encounter procedure Matthew Orozco Work Phone: IN-Usnasqohozmmh-Rzmh [address] 3200 Work Phone: Start: 07-03-2022 End: 07-03-[address] FELIX LISTED REQUEST Facility:H1 Start: 06-23-[address] Tom Millard acility:[id number] Start: 06-02-2022 Rx Renewal Matthew Baron as Work Phone: [facility] Work Phone: Start: 05-27-[address] Abdullahi Bonilla Facil ity:[id number] Start: 05-27-2022 Patient encounter procedure Matthew Orozco Work Phone: YE-Ojyphrmmigelew-Jgm [place] [address]60 Work Phone: Start: 05-13-2022 ambulatory Ms. Lita Sunshine Rasheed Millard acility:[facility] Start: 05-09-2022 Chart Update Matthew Baron as Work Phone: [facility] Work Phone: Start: 05-01-[address] Matthew Orozco Facility:[facility] Start: 05-01-[address] Matthew Orozco Facility:[id number] Start: 04-24-2022 ambulatory Mariia Bernal Facility:9 [id number] Start: 04-21-2022 ambulatory Mariia Bernal Facility:9 542 Start: 04-14-2022 Rx Renewal Matthew Baron as Work Phone: [facility] Work Phone: Start: 03-20-2022 AUDIT Matthew Baron as Work Phone: [facility] Work Phone: Start: 01-21-[address] Abdullahi Bonilla [facility] ity:[id number] Start: 01-21-2022 Patient encounter procedure Matthew Orozco Work Phone: SW-Smiijnqlvrofgr-Coz [place] 2464 Work Phone: Start: 12-26-2021 Chart Update Matthew Baron as Work Phone: [facility] Work Phone: Start: 12-25-[address] Tom Millard acility:[id number] Start: 12-23-2021 ambulatory Ms. Lita Sunshine Rasheed Millard acility:[facility] Start: 12-18-2021 AUDIT Matthew Baron as Work Phone: RE-Fhmbfvhsfeins-QEB Luis M 1600 Work Phone: Start: 12-09-2021 Chart Update Matthew Baron as Work Phone: QW-Ztnlfgxhrstdm-NJB [place] [address] Work Phone: Start: 11-27-2021 Chart Update Matthew Baron as Work Phone: [facility] Work Phone: Start: 11-26-2021 Office outpatient vi sit 25 minutes Matthew Orozco Work Phone: [facility] Work Phone: Start: 10-30-2021 AUDIT Matthew Baron as Work Phone: OG-Adyaenckakcer-PKL Luis M [address] Work Phone: Start: 10-28-2021 Chart Update Matthew Baron as Work Phone: YO-Wsvqsdvttnynx-ZAR [place] [address] Work Phone: Start: 10-23-2021 End: 10-23-[address] DANAE FERRARO . Facility:H1 Start: 10-15-2021 AUDIT Matthew Baron as Work Phone: OZ-Mkokijymqdhhk-XPA Luis M 1600 Work Phone: Start: 10-09-2021 AUDIT Matthew Oliver Tod as [facility] Phone[facility] Work [facility]: Start: 10-09-2021 End: 10-23-[address] DANAE FERRARO . Facility:H1 Start: 10-08-2021 Patient encounter procedure Matthew Orozco Work Phone: PV-Oxkyuyzfvnnyac-Bom [place] 250 Work Phone: Start: 10-02-2021 End: 10-03-[address] MENA CHERY . Facility:H1 Start: 09-30-[address] DANAE FERRARO . Fa cility:H1 Start: 09-25-2021 AUDIT Matthew Oliver Tod as Work Phone: GC-Nhxdacdirlucs-ZNG [place] [address] Work Phone: Start: 09-24-2021 Encounter for preprocedural laboratory examination DR DANAE FERRARO . [facility] Start: 09-23-2021 End: 09-26-2021 Evaluation and management of inpatient DR DANAE FERRARO . Facility:H1 Start: 09-20-2021 End: 09-21-[address] NONE LISTED REQUEST Facility:H1 Start: 09-20-2021 End: 09-21-2021 Encounter for preprocedural laboratory examination NONE LISTED REQUEST Facility:H1 Start: 09-09-2021 Rx Renewal Matthew Baron as Work Phone: [facility] Work Phone: Start: 09-09-2021 Chart Update Matthew Baron as Work Phone: [facility] Work Phone: Start: 09-05-2021 Chart Update Matthew Baron as Work Phone: GG-Zoowjaczsqdzc-XJM [place] [address] Work Phone: Start: 09-04-2021 Chart Update Matthew Baron as Work Phone: [facility] Work Phone: Start: 09-04-2021 End: 09-04-[address] DANAE FERRARO . Facility: Start: 08-26-2021 Chart Update Matthew Baron as Work Phone: ZW-Scrgqubpuyjia-DMX Luis M 1600 Work Phone: Start: 08-22-2021 Chart Update Matthew Baron as Work Phone: XK-Ytwqzrrlnipky-HIR [place] [address] Work Phone: Start: 08-13-2021 Rx Renewal Matthew Baron as Work Phone: [facility] Work Phone: Start: 07-19-2021 Encounter for gynecological examination (general) (routine) without abnormal findings DR DANAE FERRARO . [facility] Start: 07-18-2021 End: 07-18-[address] DANAE FERRARO . Facility:H1 Start: 07-18-2021 End: 07-18-2021 Encounter for gynecological examination (general) (routine) without abnormal findings DR DANAE FERRARO . 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 Piedad e Melody Orozco Work Phone: LE-Zsanrlasbqfbk-VGN Luis M 1600 Work Phone: Start: 05-27-2021 AUDIT Matthew Oliver Tod as Work Phone: HV-Bpqlmnhraweqi-EVG Luis M 1600 Work Phone: Start: 05-13-2021 AUDIT Matthew Oliver Tod as Work Phone: FU-Vpibssochiwpc-PEW [place] [address] Work Phone: Start: 04-29-2021 AUDIT Matthew Oliver Tod as Work Phone: XW-Rkzvsieobijva-TJS Luis M [address] Work Phone: Start: 04-24-2021 Office outpatient vi sit 25 minutes Matthew Orozco Work Phone: EX-Yrrlixfs-Rtwjpv [place] [address] Work Phone: Start: 03-27-2021 End: 03-28-2021 ambulatory OLIVIA PETE [facility] Start: 03-26-2021 Office outpatient vi sit 15 minutes Matthew Orozco Work Phone: IN-Irbyfltbtozzmr-Cet dman Voice Work Phone: Start: 11-20-2020 Office outpatient vi sit 15 minutes Matthew Orozco Work Phone: TX-Tzgdynmdtsdeuc-Egm [place] Work Phone: Start: 11-05-2020 Chart Update Matthew Baron as Work Phone: [facility] [place] Work Phone: Start: 06-28-2020 Patient encounter procedure Scarlett Martin SM-Sbiiqyfvigpdr-RMY [place] [address] Work Phone: Start: 06-19-2020 Patient encounter procedure Scarlett Martin JF-Tjzhaoehskrtk-MHP Luis M 1600 Work Phone: Start: 05-25-2020 Patient encounter procedure Scarlett Martin HP-Rnyruxktlgdbb-IAI [place] [address] Work Phone: Start: 04-23-2020 Patient encounter procedure Scarlett Martin MX-Cpfixnmtqodwi-KJM [place] [address] Work Phone: Start: 02-21-2020 Patient encounter procedure Baha Arafah BG-Huysiukvbjdzr-QHX [place] [address] Work Phone: Start: 01-17-2020 Patient encounter procedure Baha Arafah GH-Gsuuthkhcusio-XSD [place] [address] Work Phone: Start: 01-10-2020 Patient encounter procedure Baha Arafah KK-Zcdhpgqgjjtla-EFD [place] [address] Work Phone: Start: 10-31-2019 Patient encounter procedure Baha Arafah JS-Bvsbzorqgahwa-UWI Luis M 1600 Work Phone: Start: 10-25-2019 Patient encounter procedure Baha Arafah WJ-Rpfrhiqyqjmwz-MEP Luis M 1600 Work Phone: Start: 10-11-2019 Patient encounter procedure Baha Arafah QA-Pfjidygmmfdbo-PZW Luis M 1600 Work Phone: Start: 09-06-2019 Patient encounter procedure Scarlett Martin [facility] [place] Work Phone: Start: 07-12-2019 Patient encounter procedure Scarlett Martin -[facility] [place] Work Phone: Start: 06-07-2019 Patient encounter procedure Padma Orozco -[facility] [place] Work Phone: Start: 05-31-2019 Patient encounter procedure Padma Orozco -[facility] [place] Work Phone: Start: 05-02-2019 Patient encounter procedure Padma Orozco -[facility] [place] Work Phone: Start: 04-27-2019 Patient encounter procedure Padma Orozco -[facility] [place] Work Phone: Start: 04-12-2019 Patient encounter procedure Padma Orozco [facility] [place] Work Phone: Start: 03-29-2019 Patient encounter procedure Padma Orozco [facility] [place] Work Phone: Start: 02-25-2019 Patient encounter procedure Padma Orozco -[facility] [place] Work Phone: Start: 02-10-2019 Patient encounter procedure Padma Orozco [facility] [place] Work Phone: Start: 02-08-2019 Patient encounter procedure Padma Orozco [facility] [place] Work Phone: Start: 02-04-2019 Patient encounter procedure Padma Orozco [facility] [place] Work Phone: Start: 12-21-2018 Patient encounter procedure Padma Orozco [facility] [place] Work Phone: Start: 11-30-2018 Patient encounter procedure Padma Orozco [facility] [place] Work Phone: Start: 11-24-2018 Patient encounter procedure Padma Orozco [facility] [place] Work Phone: Start: 11-16-2018 Patient encounter procedure Padma Orozco [facility] Work Phone: Start: 10-29-2018 Patient encounter procedure Padma Orozco [facility] Work Phone: Start: 10-26-2018 Patient encounter procedure Padma Orozco [facility] Work Phone: Start: 10-14-2018 Patient encounter procedure Padma Orozco [facility] Work Phone: Start: 10-12-2018 Patient encounter procedure Padma Orozco [facility] Work Phone: Start: 09-27-2018 Patient encounter procedure Mary Justina Martinez Facility:[facility] Start: 09-21-2018 Patient encounter procedure Padma Orozco PT-Coazfuxhwxhvgl-Ppq [place] Work Phone: Start: 09-16-2018 Patient encounter procedure Padma Orozco [facility] Work Phone: Start: 08-31-2018 Patient encounter procedure Padma Orozco [facility] Work Phone: Start: 08-30-2018 Patient encounter procedure Padma Orozco [facility] Work Phone: Start: 08-27-2018 Patient encounter procedure Padma Orozco [facility] Work Phone: Start: 08-20-2018 Patient encounter procedure Padma Orozco [facility] Work Phone: Start: 07-27-2018 Patient encounter procedure Padma Orozco [facility] Work Phone: Start: 07-20-2018 Patient encounter procedure Padma Orozco [facility] Work Phone: Start: 07-20-2018 Patient encounter procedure MATTHEW OROZCO Facility:[id number] Start: 07-20-2018 Patient encounter procedure [facility] Work Phone: Start: 07-16-2018 Patient encounter procedure Padma Orozco -[facility] Work Phone: Start: 07-13-2018 Patient encounter procedure Padma Orozco -[facility] Work Phone: Start: 07-09-2018 Patient encounter procedure Padma Orozco -[facility] Work Phone: Start: 06-08-2018 Patient encounter procedure Padma Orozco -[facility] Work Phone: Start: 06-03-2018 Patient encounter procedure Padma Orozco -[facility] Work Phone: Start: 05-28-2018 Patient encounter procedure Padma Orozco [facility] Work Phone: Start: 04-20-2018 Patient encounter procedure Padma Orozco [facility] Work Phone: Start: 04-17-2018 Patient encounter procedure Lita Iqbal Facility:[facility] Start: 03-30-2018 Patient encounter procedure Padma Orozco [facility] Work Phone: Start: 03-29-2018 End: 04-16-2018 Patient encounter procedure Family Physician Woods Facility:[facility] Start: 01-07-2018 Patient encounter procedure Padma Orozco [facility] Work Phone: Start: 10-20-2017 Patient encounter procedure Padma Orozco [facility] Work Phone: Start: 10-16-2017 Patient encounter procedure Russ Salmeron Facility:[facility] Start: 09-28-2017 End: 10-15-2017 Patient encounter procedure Russ Salmeron Facility:[facility] Start: 09-15-2017 Patient encounter procedure PADMA OROZCO Facility:[facility] [employer] Start: 09-08-2017 Patient encounter procedure PADMA OROZCO Facility:[facility] Start: 08-25-2017 Patient encounter procedure Padma Orozco [facility] Work Phone: Start: 07-09-2017 Patient encounter procedure Padma Orozco [facility] Work Phone: Start: 05-27-2017 Patient encounter procedure Padma Orozco [facility] Work Phone: Start: 05-25-2017 Patient encounter procedure Padma Orozco [facility] Work Phone: Start: 05-05-2017 Patient encounter procedure Padma Orozco [facility] Work Phone: Start: 04-22-2017 Patient encounter procedure Padma Orozco [facility] Work Phone: Start: 04-13-2017 Patient encounter procedure Padma Orozco [facility] Work Phone: Start: 02-11-2017 Patient encounter procedure Padma Orozco [facility] Work Phone: Start: 02-09-2017 Patient encounter procedure Padma Orozco [facility] Work Phone: Start: 02-04-2017 Patient encounter procedure Padma Orozco [facility] Work Phone: Start: 01-08-2017 Patient encounter procedure Padma Orozco [facility] Work Phone: Start: 12-01-2016 Patient encounter procedure Padma Orozco [facility] Work Phone: Start: 11-26-2016 Patient encounter procedure Padma Orozco [facility] Work Phone: Start: 10-14-2016 Patient encounter procedure Padma Orozco [facility] Work Phone: Start: 10-01-2016 Patient encounter procedure Padma Orozco [facility] Work Phone: Patient encounter procedure Matthew Orozco Work Phone: QG-Wlecysupygcjx-QYW Luis M 1600 Work Phone: Procedures Date Procedure Procedure Detail Performing Clinician Start: 11-17-2024 Lipid 1996 panel - S delmar or Plasma Kiko Nico [employer] TECHNICIAN Work Phone: Start: 11-17-2024 Microscopic observat ion [Identifier] in Cervix by Cyto stain Kiko Jacksongavino [employer] TECHNICIAN Work Phone: Start: 11-17-2024 Thyrotropin [Units/v olume] in Serum or Plasma Kiko Aburto [employer] TECHNICIAN Work Phone: Start: 11-09-2024 Colonoscopy w/biopsy single/multiple Padma Orozco MD Work Phone: Start: 11-09-2024 PULSE OXIMETRY, CONTINUOUS Padma Orozco MD Work Phone: Start: 11-09-2024 PULSE OXIMETRY, SPOT Sa lorenzo Orozco MD Work Phone: Start: 11-09-2024 Colonoscopy Padma Ware MD Work Phone: Start: 06-17-2024 Thyrotropin [Units/v olume] in Serum or Plasma Padma Ware MD Work Phone: Start: 04-20-2024 Glucose quantitative blood xcpt reagent strip Vito Christianson DO Work Phone: Start: 04-20-2024 Basic metabolic pane l calcium total Donita Franklin MD Work Phone: Start: 04-19-2024 Glucose quantitative blood xcpt reagent strip Vito Christianson DO Work Phone: Start: 04-19-2024 End: 04-19-2024 Basic metabolic panel calcium total Donita Franklin MD Work Phone: Start: 04-18-2024 Glucose quantitative blood xcpt reagent strip Vito E Donatelli-Seyler DO Work Phone: Start: 04-18-2024 Glucose quantitative blood xcpt reagent strip Vito Griffith Donatelli-Seyler DO Work Phone: Start: 04-18-2024 Radiologic small int estine follow-through study David Varela MD Work Phone: Start: 04-18-2024 Glucose quantitative blood xcpt reagent strip Vito E Donatelli-Seyler DO Work Phone: Start: 04-18-2024 Basic metabolic pane l calcium total Donita Franklin MD Work Phone: Start: 04-17-2024 Glucose quantitative blood xcpt reagent strip Vito Griffith Donatelli-Seyler DO Work Phone: Start: 04-17-2024 Basic metabolic pane l calcium total Donita Franklin MD Work Phone: Start: 04-17-2024 Glucose quantitative blood xcpt reagent strip Vito E Donatelli-Seyler DO Work Phone: Start: 04-16-2024 Radiologic exam ches t single view Binu Mcbridenguyen DO Work Phone: Start: 04-16-2024 Radiologic exam ches t single view Binu Mcbridenguyen DO Work Phone: Start: 04-16-2024 Blood typing serolog ic rh (d) Binu Mcbridenguyen DO Work Phone: Start: 04-16-2024 Comprehensive metabo lic panel Binu Mcbridenguyen DO Work Phone: Start: 03-02-2024 Thyrotropin [Units/v olume] in Serum or Plasma Elena Kelsey MD Work Phone: Start: 12-11-2023 Thyrotropin [Units/v olume] in Serum or Plasma Leoncio Sparrow MD Work Phone: Start: 10-10-2023 Lipid 1996 panel - S delmar or Plasma Leoncio Sparrow MD Work Phone: Start: 03-10-2023 Assay of iron Mariia Silver Work Phone: Start: 05-01-2022 Jana Orozco Work Phone: Start: 11-26-2021 Thyrotropin [Units/v olume] in Serum or Plasma Mariia Bernal PA-C Work Phone: Start: 09-23-2021 Extraction of Produc ts of Conception, Low Cervical, Open Approach DR DANAE FERRARO . Start: 09-23-2021 Resection of Bilater al Fallopian Tubes, Open Approach DR DANAE FERRARO . Start: 06-19-2020 Jorge ALEXANDRA Scarlett el Start: 06-19-2020 Assay of ferritin Scarlett Martin Start: 06-19-2020 Blood count complete auto&auto difrntl wbc Scarlett Martin Start: 06-19-2020 C-reactive protein Scarlett Martin Start: 06-19-2020 Comprehensive metabo lic 2000 panel Scarlett Martin Start: 06-19-2020 Iron + TIBC, Serum Scarlett Martin Start: 06-19-2020 Sedimentation rate r bc automated Scarlett Martin Start: 05-25-2020 Assay of free thyroxine Scarlett Martin Start: 05-25-2020 Assay of parathormone M aleksey Veronica Start: 05-25-2020 Assay of thyroid sti mulating hormone tsh Scarlett Martin Start: 05-25-2020 Renal function panel Ma mi Chandharley Start: 02-21-2020 Assay of free thyroxine Leoncio Sparrow Start: 02-21-2020 Assay of thyroid sti mulating hormone tsh Leoncio Sparrow Start: 11-16-2019 Microscopic observat ion [Identifier] in Cervix by Cyto stain Padma Ware MD Work Phone: Start: 09-06-2019 Jorge ALEXANDRA Scarlett el Start: 09-06-2019 Assay of folic [...] unilat Padma Orozco Start: 03-29-2019 Calprotectin, Fecal Sap shabnam Orozco Start: 03-29-2019 Hepatitis b core [...] 60+ years (1 - 1-dose 60+ series) [facility] Start: 04-09-2030 DTaP/Tdap/Td Vaccine s (3 - Td or Tdap) DTaP/Tdap/Td Vaccines (3 - Td or Tdap) [facility] Start: 11-17-2029 Lipid panel Lipid Panel [facility] Start: 11-17-2029 Screening for malign ant neoplasm of cervix [facility] Start: 10-09-2028 Lipid panel Lipid Panel [facility] Start: 11-18-2027 Screening for malign ant neoplasm of cervix Pap Smear [facility] Start: 12-06-2025 Cyanocobalamin vitam in b-12 Vitamin B-12 [facility] Start: 12-06-2025 Diabetes mellitus screening Diabetes Screening [facility] Start: 11-21-2025 End: 11-21-2025 Patient encounter procedure 11/21/2025 9:20 AM EDT Office Visit [facility] [address] [phone] [place] [address] [address] [place], [place] [id number] [facility] Start: 11-18-2025 Yearly Adult Physical Yearly Adult P hysical [facility] Start: 11-17-2025 Thyroid stimulating hormone measurement TSH Level [facility] Start: 08-17-2025 Cyanocobalamin vitam in b-12 Vitamin B-12 [facility] Start: 06-17-2025 Cyanocobalamin vitam in b-12 Vitamin B-12 [facility] Start: 06-17-2025 Thyroid stimulating hormone measurement TSH Level [facility] Start: 04-20-2025 Diabetes mellitus screening Diabetes Screening [facility] Start: 04-19-2025 Diabetes mellitus screening Diabetes Screening [facility] Start: 03-24-2025 End: 03-24-2025 Patient encounter procedure 03/24/2025 1:00 PM EST Office Visit [facility] [address] [place] [id number] Mariza Ro, [employer] TECHNICIAN [id number] [place] [address] [address] [place] [address] [facility] Start: 03-21-2025 End: 06-19-2025 CBC W Auto Differential panel - Blood CBC and Auto Differential Lab Routine Iron deficiency anemia, unspecified iron deficiency anemia type Iron malabsorption (HHS-HCC) Iron deficiency anemia due to chronic blood loss Expected: 03/21/2025, Expires: 06/19/2025 [facility] Service Area Work Phone: Comment on above: Expected: 03/21/2025 , Expires: 06/19/2025 Start: 03-21-2025 End: 06-19-2025 Cobalamin (Vitamin B12) [Mass/volume] in Serum or Plasma Vitamin B12 Lab Routine Iron deficiency anemia, unspecified iron deficiency anemia type Iron malabsorption (HHS-HCC) Iron deficiency anemia due to chronic blood loss Expected: 03/21/2025, Expires: 06/19/2025 [facility] Work Phone: Comment on above: Expected: 03/21/2025 , Expires: 06/19/2025 Start: 03-21-2025 End: 06-19-2025 Comprehensive metabolic 2000 panel - Serum or Plasma Comprehensive Metabolic Panel Lab Routine Iron deficiency anemia, unspecified iron deficiency anemia type Iron malabsorption (HHS-HCC) Iron deficiency anemia due to chronic blood loss Expected: 03/21/2025, Expires: 06/19/2025 [facility] Work Phone: Comment on above: Expected: 03/21/2025 , Expires: 06/19/2025 Start: 03-21-2025 End: 06-19-2025 Ferritin [Mass/volume] in Serum or Plasma Ferritin Lab Routine Iron deficiency anemia, unspecified iron deficiency anemia type Iron malabsorption (HHS-HCC) Iron deficiency anemia due to chronic blood loss Expected: 03/21/2025, Expires: 06/19/2025 [facility] Work Phone: Comment on above: Expected: 03/21/2025 , Expires: 06/19/2025 Start: 03-21-2025 End: 06-19-2025 Iron and Iron binding capacity panel - Serum or Plasma Iron and TIBC Lab Routine Iron deficiency anemia, unspecified iron deficiency anemia type Iron malabsorption (HHS-HCC) Iron deficiency anemia due to chronic blood loss Expected: 03/21/2025, Expires: 06/19/2025 [facility] Work Phone: Comment on above: Expected: 03/21/2025 , Expires: 06/19/2025 Start: 03-10-2025 End: 03-10-2025 Patient encounter procedure 03/10/2025 9:15 AM EDT Office Visit [facility] [address] [address] [facility] [address] [place] [id number] [place] [address] [address] Department [place] [address] [facility] Start: 03-02-2025 Thyroid stimulating hormone measurement TSH Level [facility] Start: 03-01-2025 End: 03-01-2025 Patient encounter procedure 03/01/2025 10:00 AM EDT Office Visit [facility] [address] [place] [address] Binu Baldwin, [employer] TECHNICIAN [address] [facility] [address] [place] [address] [facility] Start: 01-16-2025 Influenza vaccination [facility] Start: 12-30-2024 End: 12-30-2024 ambulatory 12/30/2024 12:30 PM EDT Infusion [facility] [address] [place] [address] [facility] Start: 12-23-2024 End: 12-23-2024 ambulatory 12/23/2024 12:30 PM EDT Infusion [facility] [address] [place] [address] [facility] Start: 12-16-2024 End: 12-16-2024 ambulatory 12/16/2024 12:00 PM EDT Infusion [facility] [address] [place] [address] [facility] Start: 12-13-2024 Cyanocobalamin vitam in b-12 Vitamin B-12 [facility] Start: 12-10-2024 Thyroid stimulating hormone measurement TSH Level [facility] Start: 12-09-2024 Screening for malign ant neoplasm of colon [facility] Start: 12-07-2024 End: 12-07-2024 Telemedicine consultation with patient 12/07/2024 1:30 PM EDT Telemedicine [facility] [address] [place] [address] Kiko Aburto, [employer] TECHNICIAN [address] [place] [address] Dr Brown [address] [place] [address] [facility] Start: 12-02-2024 End: 12-02-2024 Telemedicine consultation with patient 12/02/2024 1:30 PM EDT Telemedicine [facility] [address] [place] [address] Dr [address] [place] [phone] Kiko Aburto, [employer] TECHNICIAN [address] [place] [address] Dr Brown [address] [place] [address] [facility] Start: 11-28-2024 End: 08-19-2025 C reactive protein [Mass/volume] in Serum or Plasma C-Reactive Protein Lab Routine Iron deficiency anemia, unspecified iron deficiency anemia type Iron malabsorption (HHS-HCC) Iron deficiency anemia due to chronic blood loss Crohn's disease of small and large intestines with complication (Multi) Expected: 11/28/2024, Expires: 08/19/2025 [facility] Work Phone: Comment on above: Expected: 11/28/2024 , Expires: 08/19/2025 Start: 11-28-2024 End: 08-19-2025 CBC W Auto Differential panel - Blood CBC and Auto Differential Lab Routine Iron deficiency anemia, unspecified iron deficiency anemia type Iron malabsorption (HHS-HCC) Iron deficiency anemia due to chronic blood loss Crohn's disease of small and large intestines with complication (Multi) Expected: 11/28/2024, Expires: 08/19/2025 [facility] Service Area Work Phone: Comment on above: Expected: 11/28/2024 , Expires: 08/19/2025 Start: 11-28-2024 End: 08-19-2025 Cobalamin (Vitamin B12) [Mass/volume] in Serum or Plasma Vitamin B12 Lab Routine Iron deficiency anemia, unspecified iron deficiency anemia type Iron malabsorption (HHS-HCC) Iron deficiency anemia due to chronic blood loss Crohn's disease of small and large intestines with complication (Multi) Expected: 11/28/2024, Expires: 08/19/2025 [facility] Work Phone: Comment on above: Expected: 11/28/2024 , Expires: 08/19/2025 Start: 11-28-2024 End: 08-19-2025 Comprehensive metabolic 2000 panel - Serum or Plasma Comprehensive Metabolic Panel Lab Routine Iron deficiency anemia, unspecified iron deficiency anemia type Iron malabsorption (HHS-HCC) Iron deficiency anemia due to chronic blood loss Crohn's disease of small and large intestines with complication (Multi) Expected: 11/28/2024, Expires: 08/19/2025 [facility] Work Phone: Comment on above: Expected: 11/28/2024 , Expires: 08/19/2025 Start: 11-28-2024 End: 08-19-2025 Erythrocyte sedimentation rate Sedimentation Rate Lab Routine Iron deficiency anemia, unspecified iron deficiency anemia type Iron malabsorption (HHS-HCC) Iron deficiency anemia due to chronic blood loss Crohn's disease of small and large intestines with complication (Multi) Expected: 11/28/2024, Expires: 08/19/2025 [facility] Work Phone: Comment on above: Expected: 11/28/2024 , Expires: 08/19/2025 Start: 11-28-2024 End: 08-19-2025 Ferritin [Mass/volume] in Serum or Plasma Ferritin Lab Routine Iron deficiency anemia, unspecified iron deficiency anemia type Iron malabsorption (HHS-HCC) Iron deficiency anemia due to chronic blood loss Crohn's disease of small and large intestines with complication (Multi) Expected: 11/28/2024, Expires: 08/19/2025 [facility] Work Phone: Comment on above: Expected: 11/28/2024 , Expires: 08/19/2025 Start: 11-28-2024 End: 08-19-2025 Folate [Mass/volume] in Serum or Plasma Folate Lab Routine Iron deficiency anemia, unspecified iron deficiency anemia type Iron malabsorption (HHS-HCC) Iron deficiency anemia due to chronic blood loss Crohn's disease of small and large intestines with complication (Multi) Expected: 11/28/2024, Expires: 08/19/2025 [facility] Work Phone: Comment on above: Expected: 11/28/2024 , Expires: 08/19/2025 Start: 11-28-2024 End: 08-19-2025 Iron and Iron binding capacity panel - Serum or Plasma Iron and TIBC Lab Routine Iron deficiency anemia, unspecified iron deficiency anemia type Iron malabsorption (HHS-HCC) Iron deficiency anemia due to chronic blood loss Crohn's disease of small and large intestines with complication (Multi) Expected: 11/28/2024, Expires: 08/19/2025 [facility] Work Phone: Comment on above: Expected: 11/28/2024 , Expires: 08/19/2025 Start: 11-17-2024 End: 11-17-2025 Lipid 1996 panel - Serum or Plasma Lipid panel Lab Routine Wellness examination Expected: 11/17/2024 (Approximate), Expires: 11/17/2025 [facility] Work Phone: Comment on above: Expected: 11/17/2024 (Approximate), Expires: 11/17/2025 Start: 11-17-2024 End: 11-17-2025 Tsh With Reflex To Free T4 If Abnormal Tsh With Reflex To Free T4 If Abnormal Lab Routine Wellness examination Expected: 11/17/2024 (Approximate), Expires: 11/17/2025 [facility] Service Area Work Phone: Comment on above: Expected: 11/17/2024 (Approximate), Expires: 11/17/2025 Start: 11-17-2024 End: 11-17-2024 Patient encounter procedure 11/17/2024 8:00 AM EDT Office Visit [facility] [address] [facility] [address] [place] [address] [place] [address] [facility] [address] [place] [address] [facility] Start: 10-19-2024 End: 10-19-2024 Patient encounter procedure 10/19/2024 1:30 PM EDT Office Visit [facility] [address] [place] [phone] [place] [address] [place] [address] [facility] Start: 09-07-2024 End: 09-07-2024 ambulatory 09/07/2024 8:30 AM EDT Infusion [facility] [address] [place] [address] [facility] Start: 09-02-2024 End: 09-02-2024 Patient encounter procedure 09/02/2024 9:30 AM EDT Office Visit [facility] [address] [facility] [address] [place] [address] [place] [address] Department [place] [address] [facility] Start: 08-31-2024 End: 08-31-2024 ambulatory 08/31/2024 8:30 AM EDT Infusion [facility] [address] [place] [address] [facility] Start: 08-30-2024 End: 08-30-2025 Colonoscopy study Colonoscopy Diagnostic Endoscopy Routine Crohn's disease of small and large intestines with complication (Multi) Expected: 08/30/2024 (Approximate), Expires: 08/30/2025 [facility] Work Phone: Comment on above: Expected: 08/30/2024 (Approximate), Expires: 08/30/2025 Start: 08-30-2024 End: 08-30-2025 Mycobacterium tuberculosis stimulated gamma interferon and spot count panel - Blood T-Spot TB Lab Routine Crohn's disease of small and large intestines with complication (Multi) Expected: 08/30/2024 (Approximate), Expires: 08/30/2025 [facility] Service Area Work Phone: Comment on above: Expected: 08/30/2024 (Approximate), Expires: 08/30/2025 Start: 08-30-2024 End: 08-30-2024 Patient encounter procedure 08/30/2024 9:40 AM EDT Office Visit [facility] [address] [place] [address] [place] [address] [facility] [address] [place] [address] [facility] Start: 08-26-2024 End: 08-26-2024 Patient encounter procedure 08/26/2024 9:00 AM EDT Office Visit [facility] [address] [place] [phone] [place] [address] [place] [address] [facility] Start: 08-25-2024 Yearly Adult Physical Yearly Adult P [facility] Start: 08-19-2024 End: 08-19-2024 Patient encounter procedure 08/19/2024 8:00 AM EDT Office Visit [facility] [address] [place] [address] Kiko Aburto, [employer] TECHNICIAN [id number] [place] [address] Dr [address] [place] [address] [facility] Start: 08-17-2024 End: 02-16-2025 CBC W Auto Differential panel - Blood CBC and Auto Differential Lab Routine Iron deficiency anemia, unspecified iron deficiency anemia type Iron malabsorption ([facility]-HCC) Expected: 08/17/2024, Expires: 02/16/2025 [facility] Work Phone: Comment on above: Expected: 08/17/2024 , Expires: 02/16/2025 Start: 08-17-2024 End: 02-16-2025 Cobalamin (Vitamin B12) [Mass/volume] in Serum or Plasma Vitamin B12 Lab Routine Iron deficiency anemia, unspecified iron deficiency anemia type Iron malabsorption (HHS-HCC) Expected: 08/17/2024, Expires: 02/16/2025 [facility] Work Phone: Comment on above: Expected: 08/17/2024 , Expires: 02/16/2025 Start: 08-17-2024 End: 02-16-2025 Ferritin [Mass/volume] in Serum or Plasma Ferritin Lab Routine Iron deficiency anemia, unspecified iron deficiency anemia type Iron malabsorption (HHS-HCC) Expected: 08/17/2024, Expires: 02/16/2025 [facility] Work Phone: Comment on above: Expected: 08/17/2024 , Expires: 02/16/2025 Start: 08-17-2024 End: 02-16-2025 Iron and Iron binding capacity panel - Serum or Plasma Iron and TIBC Lab Routine Iron deficiency anemia, unspecified iron deficiency anemia type Iron malabsorption (HHS-HCC) Expected: 08/17/2024, Expires: 02/16/2025 [facility] Work Phone: Comment on above: Expected: 08/17/2024 , Expires: 02/16/2025 Start: 08-17-2024 End: 08-17-2024 ambulatory 08/17/2024 12:[address] [facility] Dr [facility] [address] [place] [address] [facility] Dr [facility] Start: 07-14-2024 Cyanocobalamin vitam in b-12 Vitamin B-12 [facility] Start: 07-05-2024 End: 07-05-2025 ADALIMUMAB AND ANTIBODY TO ADALIMUMAB QUANTITATION Adalimumab and Antibody to Adalimumab Quantitation Lab Routine Crohn's disease of small and large intestines with complication (Multi) Expected: 07/05/2024 (Approximate), Expires: 07/05/2025 [facility] Service Area Work Phone: Comment on above: Expected: 07/05/2024 (Approximate), Expires: 07/05/2025 Start: 07-05-2024 End: 07-05-2025 C reactive protein [Mass/volume] in Serum or Plasma C-Reactive Protein Lab Routine Crohn's disease of small and large intestines with complication (Multi) Expected: 07/05/2024 (Approximate), Expires: 07/05/2025 [facility] Work Phone: Comment on above: Expected: 07/05/2024 (Approximate), Expires: 07/05/2025 Start: 05-25-2024 End: 02-16-2025 CBC W Auto Differential panel - Blood CBC and Auto Differential Lab Routine Iron deficiency anemia, unspecified iron deficiency anemia type Iron malabsorption (HHS-HCC) Expected: 05/25/2024, Expires: 02/16/2025 [facility] Work Phone: Comment on above: Expected: 05/25/2024 , Expires: 02/16/2025 Start: 05-25-2024 End: 02-16-2025 Ferritin [Mass/volume] in Serum or Plasma Ferritin Lab Routine Iron deficiency anemia, unspecified iron deficiency anemia type Iron malabsorption (HHS-HCC) Expected: 05/25/2024, Expires: 02/16/2025 [facility] Work Phone: Comment on above: Expected: 05/25/2024 , Expires: 02/16/2025 Start: 05-25-2024 End: 02-16-2025 Iron and Iron binding capacity panel - Serum or Plasma Iron and TIBC Lab Routine Iron deficiency anemia, unspecified iron deficiency anemia type Iron malabsorption (HHS-HCC) Expected: 05/25/2024, Expires: 02/16/2025 [facility] Work Phone: Comment on above: Expected: 05/25/2024 , Expires: 02/16/2025 Start: 05-25-2024 End: 05-25-2024 ambulatory 05/25/2024 12:[address] [facility] Dr [facility] [address] [place] [address] [facility] Dr [facility] Start: 03-31-2024 Superficial Wound Culture Supe rficial Wound Culture [facility] Start: 03-04-2024 End: 03-04-2024 Patient encounter procedure 03/04/2024 9:00 AM EDT Office [facility] [address] [address] [facility] [address] [place] [address] [place] [address] [address] Department [place] [address] [facility] Start: 03-02-2024 End: 03-02-2025 Thiopurine Metabolites by LC-MS/MS (6MMP) [facility] Service Area Work Phone: Comment on above: Expected: 03/02/2024 (Approximate), Expires: 03/02/2025 Start: 03-02-2024 End: 12-29-2024 Thyrotropin [Units/volume] in Serum or Plasma TSH Lab Routine Hypothyroidism, postsurgical Expected: 03/02/2024 (Approximate), Expires: 12/29/2024 [facility] Work Phone: Comment on above: Expected: 03/02/2024 (Approximate), Expires: 12/29/2024 Start: 03-02-2024 End: 12-29-2024 Thyroxine (T4) free [Mass/volume] in Serum or Plasma T4, free Lab Routine Hypothyroidism, postsurgical Expected: 03/02/2024 (Approximate), Expires: 12/29/2024 [facility] Work Phone: Comment on above: Expected: 03/02/2024 (Approximate), Expires: 12/29/2024 Start: 03-02-2024 End: 03-02-2024 Patient encounter procedure 03/02/2024 9:30 AM EDT Office Visit [facility] [address] [place] [phone] Binu Baldwin, [employer] TECHNICIAN [address] [facility] [address] [place] [address] [facility] Start: 01-17-2024 Influenza vaccination [facility] Start: 12-30-2023 End: 12-30-2023 Patient encounter procedure 12/30/2023 8:20 AM EDT Office Visit [facility] [address] [facility] [address] [place] [address] [place] [address] [place] [address] [facility] Start: 12-17-2023 End: 09-15-2024 CBC W Auto Differential panel - Blood CBC and Auto Differential Lab Routine Iron deficiency anemia, unspecified iron deficiency anemia type Iron deficiency anemia due to chronic blood loss Iron malabsorption (HHS-HCC) Expected: 12/17/2023, Expires: 09/15/2024 [facility] Work Phone: Comment on above: Expected: 12/17/2023 , Expires: 09/15/2024 Start: 12-17-2023 End: 09-15-2024 Cobalamin (Vitamin B12) [Mass/volume] in Serum or Plasma Vitamin B12 Lab Routine Iron deficiency anemia, unspecified iron deficiency anemia type Iron deficiency anemia due to chronic blood loss Iron malabsorption (HHS-HCC) Expected: 12/17/2023 (Approximate), Expires: 09/15/2024 [facility] Work Phone: Comment on above: Expected: 12/17/2023 (Approximate), Expires: 09/15/2024 Start: 12-17-2023 End: 09-15-2024 Comprehensive metabolic 2000 panel - Serum or Plasma Comprehensive metabolic panel Lab Routine Iron deficiency anemia, unspecified iron deficiency anemia type Iron deficiency anemia due to chronic blood loss Iron malabsorption (HHS-HCC) Expected: 12/17/2023 (Approximate), Expires: 09/15/2024 [facility] Service Area Work Phone: Comment on above: Expected: 12/17/2023 (Approximate), Expires: 09/15/2024 Start: 12-17-2023 End: 09-15-2024 Ferritin [Mass/volume] in Serum or Plasma Ferritin Lab Routine Iron deficiency anemia, unspecified iron deficiency anemia type Iron deficiency anemia due to chronic blood loss Iron malabsorption (HHS-HCC) Expected: 12/17/2023 (Approximate), Expires: 09/15/2024 [facility] Work Phone: Comment on above: Expected: 12/17/2023 (Approximate), Expires: 09/15/2024 Start: 12-17-2023 End: 09-15-2024 Iron and Iron binding capacity panel - Serum or Plasma Iron and TIBC Lab Routine Iron deficiency anemia, unspecified iron deficiency anemia type Iron deficiency anemia due to chronic blood loss Iron malabsorption ([facility]-HCC) Expected: 12/17/2023, Expires: 09/15/2024 [facility] Work Phone: Comment on above: Expected: 12/17/2023 , Expires: 09/15/2024 Start: 09-16-2023 End: 09-16-2023 Patient encounter procedure 09/16/2023 8:00 AM EDT Office Visit [facility] [address] [place] [address] Dr [address] [place] [phone] Kiko Aburto, [employer] TECHNICIAN [address] [place] [address] Dr [address] [place] [address] [facility] Start: 09-14-2023 End: 09-14-2023 ambulatory 09/14/2023 11:[address] [facility] Dr [facility] [address] [place] [address] [place] [address] [facility] Dr [facility] Start: 09-13-2023 End: 07-15-2024 CBC W Auto Differential panel - Blood CBC and Auto Differential Lab Routine Iron deficiency anemia, unspecified iron deficiency anemia type Expected: 09/13/2023, Expires: 07/15/2024 [facility] Service Area Work Phone: Comment on above: Expected: 09/13/2023 , Expires: 07/15/2024 Start: 09-13-2023 End: 07-15-2024 Comprehensive metabolic 2000 panel - Serum or Plasma Comprehensive metabolic panel Lab Routine Iron deficiency anemia, unspecified iron deficiency anemia type Expected: 09/13/2023 (Approximate), Expires: 07/15/2024 [facility] Work Phone: Comment on above: Expected: 09/13/2023 (Approximate), Expires: 07/15/2024 Start: 09-13-2023 End: 07-15-2024 Ferritin [Mass/volume] in Serum or Plasma Ferritin Lab Routine Iron deficiency anemia, unspecified iron deficiency anemia type Expected: 09/13/2023 (Approximate), Expires: 07/15/2024 [facility] Work Phone: Comment on above: Expected: 09/13/2023 (Approximate), Expires: 07/15/2024 Start: 09-13-2023 End: 07-15-2024 Iron and Iron binding capacity panel - Serum or Plasma Iron and TIBC Lab Routine Iron deficiency anemia, unspecified iron deficiency anemia type Expected: 09/13/2023, Expires: 07/15/2024 [facility] Work Phone: Comment on above: Expected: 09/13/2023 , Expires: 07/15/2024 Start: 09-04-2023 End: 09-04-2023 Patient encounter procedure 09/04/2023 9:00 AM EDT Office Visit [facility] [address] [address] [facility] [address] [place] [address] [place] [address] [address] Department [place] [address] [facility] Start: 09-01-2023 End: 08-31-2024 C reactive protein [Mass/volume] in Serum or Plasma [facility] Work Phone: Comment on above: Expected: 09/01/2023 (Approximate), Expires: 08/31/2024 Start: 09-01-2023 End: 08-31-2024 CBC panel - Blood by Automated count [facility] Service Area Work Phone: Comment on above: Expected: 09/01/2023 (Approximate), Expires: 08/31/2024 Start: 09-01-2023 End: 08-31-2024 Erythrocyte sedimentation rate [facility] Work Phone: Comment on above: Expected: 09/01/2023 (Approximate), Expires: 08/31/2024 Start: 09-01-2023 End: 08-31-2024 Iron and Iron binding capacity panel - Serum or Plasma [facility] Work Phone: Comment on above: Expected: 09/01/2023 (Approximate), Expires: 08/31/2024 Start: 09-01-2023 End: 08-31-2024 Mycobacterium tuberculosis stimulated gamma interferon and spot count panel - Blood [facility] Work Phone: Comment on above: Expected: 09/01/2023 (Approximate), Expires: 08/31/2024 Start: 09-01-2023 End: 08-31-2024 TPMT Enzymes [facility] Work Phone: Comment on above: Expected: 09/01/2023 (Approximate), Expires: 08/31/2024 Start: 09-01-2023 End: 09-01-2023 Patient encounter procedure 09/01/2023 11:40 AM EDT Office Visit [facility] [address] [address] [facility] [address] [place] [address] [place] [address] [facility] [address] [place], [place] [id number] [facility] Start: 08-25-2023 End: 08-25-2023 Patient encounter procedure 08/25/2023 8:00 AM EDT Office Visit [facility] [address] [place] [address] [place] [address] [place] [address] [facility] Start: 08-24-2023 Yearly Adult Physical Yearly Adult P hysical [facility] Start: 07-14-2023 End: 07-14-2023 Patient encounter procedure 07/14/2023 2:00 PM EST Office Visit [facility] [address] [place] [address] Mariia Bernal PA-C [address] [place] [address] [facility] Start: 07-10-2023 End: 03-13-2024 CBC W Auto Differential panel - Blood CBC and Auto Differential Lab Routine Iron deficiency anemia, unspecified iron deficiency anemia type Expected: 07/10/2023 (Approximate), Expires: 03/13/2024 [facility] Work Phone: Comment on above: Expected: 07/10/2023 (Approximate), Expires: 03/13/2024 Start: 07-10-2023 End: 03-13-2024 Cobalamin (Vitamin B12) [Mass/volume] in Serum or Plasma Vitamin B12 Lab Routine Iron deficiency anemia, unspecified iron deficiency anemia type Expected: 07/10/2023 (Approximate), Expires: 03/13/2024 [facility] Service Area Work Phone: Comment on above: Expected: 07/10/2023 (Approximate), Expires: 03/13/2024 Start: 07-10-2023 End: 03-13-2024 Ferritin [Mass/volume] in Serum or Plasma Ferritin Lab Routine Iron deficiency anemia, unspecified iron deficiency anemia type Expected: 07/10/2023 (Approximate), Expires: 03/13/2024 [facility] Work Phone: Comment on above: Expected: 07/10/2023 (Approximate), Expires: 03/13/2024 Start: 07-10-2023 End: 09-11-2024 Iron and Iron binding capacity panel - Serum or Plasma Iron and TIBC Lab Routine Iron deficiency anemia, unspecified iron deficiency anemia type Expected: 07/10/2023 (Approximate), Expires: 09/11/2024 [facility] Work Phone: Comment on above: Expected: 07/10/2023 (Approximate), Expires: 09/11/2024 Start: 07-10-2023 End: 07-10-2023 Patient encounter procedure 07/10/2023 11:00 AM EST Office Visit [facility] [address] [place] [address] Dr [address] [place] [phone] Mariia Bernal PA-C [address] [place] [address] Dr [address] [place] [address] [facility] Start: 07-10-2023 End: 07-10-2023 ambulatory 07/10/2023 9:[address] [facility] Dr [facility] [address] [place] [address] [place] [phone] [facility] Dr [facility] Start: 04-22-2023 FUV, Provider: Parth Hirsch, Status: Pen, Time: 1:45 PM FUV, Provider: Parth Hirsch, Status: Pen, Time: 1:45 PM [id number] Work Phone: Start: 04-22-2023 End: 04-22-2023 Patient encounter procedure 04/22/2023 1:45 PM EST Office Visit [address] [place] [phone] Parth Hirsch MD [address] [place] [address] Dr [place], [place] [id number] [facility] Start: 04-06-2023 End: 04-06-2023 ambulatory 04/06/2023 1:00 PM EST Infusion [facility] [address] [place] [address] Dr [address] [place] [address] [facility] Start: 03-31-2023 End: 03-31-2023 ambulatory 03/31/2023 12:30 PM EST Infusion [facility] [id number] [place] [address] Dr [address] [place] [address] [facility] Start: 03-27-2023 End: 03-27-2023 ambulatory 03/27/2023 12:30 PM EST Infusion [facility] [address] [place] [address] Dr [address] [place] [address] [facility] [facility] Start: 03-20-2023 End: 08-19-2023 Iron and Iron binding capacity panel - Serum or Plasma Iron and TIBC Lab Routine Crohn's disease of both small and large intestine without complication (CMS/HCC) Expected: 03/20/2023 (Approximate), Expires: 08/19/2023 [facility] Service Area Work Phone: Comment on above: Expected: 03/20/2023 (Approximate), Expires: 08/19/2023 Start: 03-20-2023 End: 02-18-2024 Thiopurine Metabolites by LC-MS/MS (6MMP) Thiopurine Metabolites by LC-MS/MS (6MMP) Lab Routine Crohn's disease of both small and large intestine without complication (CMS/HCC) Expected: 03/20/2023 (Approximate), Expires: 02/18/2024 [facility] Work Phone: Comment on above: Expected: 03/20/2023 (Approximate), Expires: 02/18/2024 Start: 03-06-2023 EPVRETINA, Provider: Tom Vasquez, Status: Pen, Time: 8:30 AM EPVRETINA, Provider: Tom Vasquez, Status: Pen, Time: 8:30 AM [facility] Work Phone: Start: 02-17-2023 FUV, Provider: Scarlett Martin, Status: Pen, Time: 9:00 AM FUV, Provider: Scarlett Martin, Status: Pen, Time: 9:00 AM [facility] Work Phone: Start: 01-16-2023 Influenza vaccination Influenz a Vaccine (#1) [facility] Start: 12-11-2022 FUV, Provider: Abdullahi Bonilla, Status: Pen, Time: 9:00 AM FUV, Provider: Abdullahi Bonilla, Status: Marcel, Time: 9:00 AM [facility] Work Phone: Start: 11-26-2022 Cyanocobalamin vitam in b-12 Vitamin B-12 [facility] Start: 11-26-2022 Thyroid stimulating hormone measurement TSH Level [facility] Start: 11-15-2022 Screening for malign ant neoplasm of cervix [facility] Start: 09-09-2022 FUV, Provider: Abdullahi Bonilla, Status: Pen, Time: 1:00 PM FUV, Provider: Abdullahi Bonilla, Status: Pen, Time: 1:00 PM RR-Hkuqbfmlzfozbc-W [address] Work Phone: Start: 09-05-2022 EPVRETINA, Provider: Tom Vasquez, Status: Pen, Time: 8:30 AM EPVRETINA, Provider: Tom Vasquez, Status: Pen, Time: 8:30 AM JD-Nwhjpcprnjfoo-Nk [place] [address] Work Phone: Start: 08-22-2022 PHYSICAL, Provider: Matthew Orozco, Status: Pen, Time: 9:00 AM PHYSICAL, Provider: Matthew Orozco, Status: Pen, Time: 9:00 AM VU-Kqdiicrrqdxtm-DN [address] [place] [address] Work Phone: Start: 08-19-2022 FUV, Provider: Padma Orozco, Status: Pen, Time: 10:00 AM FUV, Provider: Padma Orozco, Status: Pen, Time: 10:00 AM VL-Daeeyzxlrwcao-Ko [place] [address] Work Phone: Start: 06-23-2022 EPVRETINA, Provider: Tom Vasquez, Status: Pen, Time: 8:15 AM EPVRETINA, Provider: Tom Vasquez, Status: Pen, Time: 8:15 AM [facility] Work Phone: Start: 05-27-2022 FUV, Provider: Abdullahi Bonilla, Status: Pen, Time: 11:45 AM FUV, Provider: Abdullahi Bonilla, Status: Pen, Time: 11:45 AM [facility] Work Phone: Start: 05-20-2022 FUV, Provider: Abdullahi Bonilla, Status: Pen, Time: 9:30 AM FUV, Provider: Abdullahi Bonilla, Status: Pen, Time: 9:30 AM CZ-Sczkgznrzuzsoe-E [place] [address] Work Phone: Start: 05-01-2022 COLON, Provider: Padma Orozco, Status: Pen, Time: 8:00 AM COLON, Provider: Padma Orozco, Status: Pen, Time: 8:00 AM [facility] Work Phone: Start: 01-21-2022 FUV, Provider: Abdullahi Bonilla, Status: Pen, Time: 9:45 AM FUV, Provider: Abdullahi Bonilla, Status: Pen, Time: 9:45 AM CP-Wqpdvytukpayoj-J [place] [address] Work Phone: Start: 12-25-2021 EPVRETINA, Provider: Tom Vasquez, Status: Pen, Time: 11:00 AM EPVRETINA, Provider: Tom Vasquez, Status: Pen, Time: 11:00 AM [facility] Work Phone: Start: 11-26-2021 FUV, Provider: Scarlett Martin, Status: Pen, Time: 2:00 PM FUV, Provider: Scarlett Martin, Status: Pen, Time: 2:00 PM [facility] Work Phone: Start: 10-08-2021 FUV, Provider: Abdullahi Bonilla, Status: Pen, Time: 9:15 AM FUV, Provider: Abdullahi Bonilla, Status: Pen, Time: 9:15 AM TS-Ikoiyjpscjrlfs-X [place] [address] Work Phone: Start: 09-17-2021 PHYSICAL, Provider: Matthew Orozco, Status: Pen, Time: 4:00 PM PHYSICAL, Provider: Matthew Orozco, Status: Pen, Time: 4:00 PM XH-Kwoknaotggqoc-WA C Luis M [address] Work Phone: Start: 09-03-2021 FUV, Provider: Scarlett Martin, Status: Pen, Time: 10:00 AM FUV, Provider: Scarlett Martin, Status: Pen, Time: 10:00 AM YE-Llhxdqzkvdpop-TZ [address] [place] [address] Work Phone: Start: 08-27-2021 FUV, Provider: Scarlett Martin, Status: Pen, Time: 10:30 AM FUV, Provider: Scarlett Martin, Status: Pen, Time: 10:30 AM OR-Geecttqlgdjwtt-A [facility] Work Phone: Start: 08-21-2021 PHYSICAL, Provider: Matthew Orozco, Status: Pen, Time: 2:40 PM PHYSICAL, Provider: Matthew Orozco, Status: Pen, Time: 2:40 PM [facility] Work Phone: Start: 07-09-2021 FUV, Provider: Abdullahi Bonilla, Status: Pen, Time: 9:15 AM FUV, Provider: Abdullahi Bonilla, Status: Pen, Time: 9:15 AM OA-Aimoetzoolxoja-G [facility] Work Phone: Start: 07-02-2021 PHYSICAL, Provider: Matthew Orozco, Status: Pen, Time: 9:00 AM PHYSICAL, Provider: Matthew Orozco, Status: Pen, Time: 9:00 AM [facility] Work Phone: Start: 04-24-2021 Patient encounter procedure CONTCLINIC, Provider: Leoncio Sparrow, Status: Pen, Time: 9:00 AM WX-Ipyicilukrwbvq-P [facility] [employer] Work Phone: Start: 03-26-2021 FUV, Provider: Abdullahi Bonilla, Status: Pen, Time: 9:30 AM FUV, Provider: Abdullahi Bonilla, Status: Pen, Time: 9:30 AM FT-Pgpjdcwkxbrgbp-P [employer] Work Phone: Start: 02-26-2021 FUV, Provider: Padma Orozco, Status: Pen, Time: 9:40 AM FUV, Provider: Padma Orozco, Status: Pen, Time: 9:40 AM [facility] Work Phone: Start: 01-16-2021 Vitamin D25-OH Vitamin D25-OH [facility] Start: 11-20-2020 FUV, Provider: Abdullahi Bonilla, Status: Pen, Time: 10:15 AM FUV, Provider: Abdullahi Bonilla, Status: Pen, Time: 10:15 AM [facility] Work Phone: Start: 08-02-2020 Screening for malign ant neoplasm of colon Sigmoidoscopy [facility] Start: 04-22-2020 Screening for malign ant neoplasm of cervix [facility] Start: 06-28-2019 Diabetes mellitus screening Diabetes Screening [facility] Start: 09-21-2018 CT Sinuses Wit hout Contrast Volumetric Surgical Planning II-Agvrejeesquwln-Z [employer] Work Phone: Start: 2012 DTaP/Tdap/Td Vaccine s (1 - Tdap) DTaP/Tdap/Td Vaccines (1 - Tdap) [facility] Start: 2011 Screening for malign ant neoplasm of cervix HPV/Cotest [facility] Start: 2009 Hepatitis B Vaccines (1 of 3 - 19+ 3-dose series) Hepatitis B Vaccines (1 of 3 - 19+ 3-dose series) [facility] Start: 2009 Pneumococcal Vaccine : Pediatrics and At-Risk Adult Patients (1 of 2 - PCV) Pneumococcal Vaccine: Pediatrics and At-Risk Adult Patients (1 of 2 - PCV) [facility] Start: 2009 Zoster Vaccines (1 of 2) Zoste r Vaccines (1 of 2) [facility] Start: 2008 Hepatitis C screening Hepatitis C Sc reening [facility] Start: 2003 Varicella vaccination Varicell a Vaccines (1 of 2 - 13+ 2-dose series) [facility] Start: 1996 Pneumococcal Vaccine : Pediatrics (0 to 5 Years) and At-Risk Patients (6 to 64 Years) (1 - PCV) Pneumococcal Vaccine: Pediatrics (0 to 5 Years) and At-Risk Patients (6 to 64 Years) (1 - PCV) [facility] Start: 1996 Pneumococcal Vaccine : Pediatrics (0 to 5 Years) and At-Risk Patients (6 to 64 Years) (1 of 2 - PCV) Pneumococcal Vaccine: Pediatrics (0 to 5 Years) and At-Risk Patients (6 to 64 Years) (1 of 2 - PCV) [facility] Start: 1995 COVID-19 Vaccine (#1) COVID-19 Vacci ne (#1) [facility] Start: 1991 MMR Vaccines (1 of 1 - Standard series) MMR Vaccines (1 of 1 - Standard series) [facility] Start: 1991 Varicella vaccination Varicell a Vaccines (1 of 2 - 2-dose childhood series) [facility] Start: 1990 Examination of skin Derm Melan consuelo Skin Check [facility] Start: 1990 Hepatitis B Vaccines (1 of 3 - 3-dose series) Hepatitis B Vaccines (1 of 3 - 3-dose series) [facility] Start: 1990 HIV screening HIV Screening [facility] Start: 1990 Lipid panel Lipid Panel [facility] Start: 1990 Screening for malign ant neoplasm of colon [facility] Start: 1990 Screening for osteoporosis Bone Dens ity Scan [facility] Start: 1990 TB Test TB Test [facility] Start: 1990 Yearly Adult Physical Yearly Adult P hysical [facility] End: 04-21-2024 Basic metabolic 2000 panel - Serum or Plasma Basic metabolic panel Lab Routine Morning draw (Lab) for 5 Occurrences starting 04/17/2024 until 04/21/2024, 4 completed [facility] Work Phone: Comment on above: Morning draw (Lab) f or 5 Occurrences starting 04/17/2024 until 04/21/2024, 4 completed End: 11-09-2024 Blood type and Indirect antibody screen panel - Blood Type And Screen Lab Timed As needed (Lab) until discontinued starting 11/09/2024 [facility] Work Phone: Comment on above: As needed (Lab) unti l discontinued starting 11/09/2024 End: 04-21-2024 CBC panel - Blood by Automated count CBC Lab Routine Morning draw (Lab) for 5 Occurrences starting 04/17/2024 until 04/21/2024, 4 completed [facility] Work Phone: Comment on above: Morning draw (Lab) f or 5 Occurrences starting 04/17/2024 until 04/21/2024, 4 completed End: 11-09-2024 Choriogonadotropin ( test) [Presence] in Urine [facility] Service Area Work Phone: Comment on above: Once (Lab) for 1 Occ urrences starting 11/09/2024 until 11/09/2024 Cytology Cervical or vaginal smear or scraping study THINPREP PAP TEST Pathology and Cytology Routine Cervical cancer screening 11/17/2024 8:29 AM EDT [facility] Work Phone: Electrocardiogram, 1 2-lead PRN ACS symptoms Electrocardiogram, 12-lead PRN ACS symptoms ECG Routine As needed until discontinued starting 04/16/2024 [facility] Work Phone: Comment on above: As needed until disc ontinued starting 04/16/2024 End: 04-16-2024 Incentive spirometry Instruct Incentive spirometry Instruct Respiratory Care Routine Once for 1 Occurrences starting 04/16/2024 until 04/16/2024 [facility] Service Area Work Phone: Comment on above: Once for 1 Occurrenc es starting 04/16/2024 until 04/16/2024 End: 04-21-2024 Magnesium [Mass/volume] in Serum or Plasma Magnesium Lab Routine Morning draw (Lab) for 5 Occurrences starting 04/17/2024 until 04/21/2024, 4 completed [facility] Work Phone: Comment on above: Morning draw (Lab) f or 5 Occurrences starting 04/17/2024 until 04/21/2024, 4 completed End: 11-09-2024 Moderate Sedation Moderate Sedation Procedures Routine Once for 1 Occurrences starting 11/09/2024 until 11/09/2024 [facility] Work Phone: Comment on above: Once for 1 Occurrenc es starting 11/09/2024 until 11/09/2024 Surgical pathology study Surgica l Pathology Exam Pathology and Cytology Timed Crohn's disease of small and large intestines with complication (Multi) Release Upon Ordering for 1 Occurrences starting 11/09/2024 [facility] Work Phone: Comment on above: Release Upon Orderin g for 1 Occurrences starting 11/09/2024 [facility] Work Phone: NEGATED: Highlighted row has been ruled out! Planned Goals not documented [facility]: Immunizations Immunization Date Immunization Notes Care Provider [facility] 04-09-2020 diphtheria, tetanus toxoids and pertussis vaccine Leoncio Sparrow MD Work Phone: [facility] 05-31-2009 hepatitis A vaccine, unspecified formulation Leoncio Sparrow MD Work Phone: [facility] Work Phone: 05-31-2009 hepatitis B vaccine, pediatric or pediatric/adolescent dosage Leoncio Sparrow MD Work Phone: [facility] Work Phone: 05-31-2009 HPV, unspecified formulation Leoncio Sparrow MD Work Phone: [facility] Work Phone: 01-25-2009 hepatitis B vaccine, pediatric or pediatric/adolescent dosage Leoncio Sparrow MD Work Phone: [facility] Work Phone: 01-25-2009 HPV, unspecified formulation Leoncio Sparrow MD Work Phone: [facility] Work Phone: 11-20-2008 hepatitis A vaccine, unspecified formulation Leoncio Sparrow MD Work Phone: [facility] Work Phone: 11-20-2008 hepatitis B vaccine, pediatric or pediatric/adolescent dosage Leoncio Sparrow MD Work Phone: [facility] Work Phone: 11-20-2008 HPV, unspecified formulation Leoncio Sparrow MD Work Phone: [facility] Work Phone: 11-20-2008 meningococcal polysaccharide (groups A, C, Y and W-135) diphtheria toxoid conjugate vaccine (MCV4P) Leoncio Sparrow MD Work Phone: [facility] Work Phone: 11-20-2008 tetanus toxoid, redu camilo diphtheria toxoid, and acellular pertussis vaccine, adsorbed Leoncio Sparrow MD Work Phone: [facility] Work Phone: 08-12-1995 measles, mumps and rubella virus vaccine Leoncio Sparrow MD Work Phone: [facility] Work Phone: 10-27-1991 measles, mumps and rubella virus vaccine Leoncio Sparrow MD Work Phone: [facility] Work Phone: Payers Date Payer Category Payer Self-pay [id number] 2020 Medicaid (Managed Care) 1.2. [id number] 2020 Unknown 1990 Unknown [id number] 2.16.840.1.925024.3.579.2.355 1990 Unknown [id number] 2.16.840.1.021362.3.579.2.355 1990 Unknown [id number] 2.16.840.1.371951.3.579.2.355 1990 Unknown [id number] 2.16.840.1.384937.3.579.2.355 1990 Unknown [id number] 2.16.840.1.977890.3.579.2.175 1990 Unknown [id number] 2.16.840.1.558708.3.579.2.593 1990 Unknown [id number] 2.16.840.1.794361.3.579.2.593 1990 Unknown [id number] 2.16.840.1.136819.3.579.2.593 1990 Unknown [id number] 2.16.840.1.739789.3.579.2.593 1990 Unknown [id number] 2.16.840.1.373187.3.579.2.593 1990 Unknown [id number] 2.16.840.1.812405.3.579.2.593 1990 Unknown [id number] 2.16.840.1.164586.3.579.2.593 1990 Unknown [id number] 2.16.840.1.391073.3.579.2.593 1990 Unknown [id number] 2.16.840.1.445352.3.579.2.593 1990 Unknown [id number] 2.16.840.1.405979.3.579.2.356 1990 Unknown [id number] 2.16.840.1.225837.3.579.2.356 1990 Unknown [id number] 2.16.840.1.913369.3.579.2.356 1990 Unknown [id number] 2.16.840.1.413474.3.579.2.356 1990 Unknown [id number] 2.16.840.1.576987.3.579.2.356 1990 Unknown [id number] 2.16.840.1.818379.3.579.2.356 1990 Unknown [id number] 2.16.840.1.160381.3.579.2.356 1990 Unknown [id number] 2.16.840.1.836739.3.579.2.356 1990 Unknown [id number] 2.16.840.1.517630.3.579.2.356 1990 Unknown [id number] 2.16.840.1.221330.3.579.2.356 1990 Unknown [id number] 2.16.840.1.229312.3.579.2.356 1990 Unknown [id number] 2.16.840.1.025899.3.579.2.356 1990 Unknown [id number] 2.16.840.1.525281.3.579.2.356 1990 Unknown [id number] 2.16.840.1.108505.3.579.2.356 1990 Unknown [id number] 2.16.840.1.013050.3.579.2.9 1990 Unknown [id number] 2.16.840.1.414861.3.579.2.9 1990 Unknown [id number] 2.16.840.1.485114.3.579.2.9 1990 Unknown [id number] 2.16.840.1.860981.3.579.2.1068 1990 Unknown [id number] 2.16.840.1.913186.3.579.2.1068 1990 Unknown [id number] 2.16.840.1.768514.3.579.2.1243 1990 Unknown [id number] 2.16.840.1.724289.3.579.2.1243 1990 Unknown [id number] 2.16.840.1.447753.3.579.2.1243 1990 Unknown [id number] 2.16.840.1.861212.3.579.2.1243 1990 Unknown [id number] 2.16.840.1.489064.3.579.2.1243 1990 Unknown [id number] 2.16.840.1.251001.3.579.2.1243 1990 Unknown [id number] 2.16.840.1.090107.3.579.2.1243 1990 Unknown [id number] 2.16.840.1.406146.3.579.2.1243 1990 Unknown [id number] 2.16.840.1.458928.3.579.2.1242 1990 Unknown [id number] 2.16.840.1.019243.3.579.2.124 1990 Unknown [id number] 2.16.840.1.460204.3.579.2.1242 1990 Unknown [id number] 2.16.840.1.142707.3.579.2.1242 1990 Unknown [id number] 2.16.840.1.558779.3.579.2.1244 1990 Unknown [id number] 2.16.840.1.998151.3.579.2.1244 1990 Unknown [id number] 2.16.840.1.203027.3.579.2.1244 1990 Unknown [id number] 2.16.840.1.457395.3.579.2.1244 1990 Unknown [id number] 2.16.840.1.416262.3.579.2.1244 1990 Unknown [id number] 2.16.840.1.369751.3.579.2.1244 1990 Unknown [id number] 2.16.840.1.706503.3.579.2.1244 1990 Unknown [id number] 2.16.840.1.669130.3.579.2.1244 1990 Unknown [id number] 2.16.840.1.039736.3.579.2.1244 1990 Unknown [id number] 2.16.840.1.102317.3.579.2.1244 1990 Unknown [id number] 2.16.840.1.736660.3.579.2.1244 1990 Unknown [id number] 2.16.840.1.700433.3.579.2.1244 1959 Unknown [id number] 1959 Unknown [id number] Unknown [id number] 2.16.840.1.533176.3.579.2.243 Unknown [id number] 2.16.840.1.374441.3.579.2.243 Unknown [id number] 2.16.840.1.350226.3.579.2.243 Unknown [id number] 2.16.840.1.054722.3.579.2.243 Unknown [id number] 2.16.840.1.929684.3.579.2.243 Unknown Regular Insurance [id number] Unknown [id number] 2.16.840.1.078785.3.579.2.531 Social History Date Type Detail Facility Start: 02-17-2023 End: 04-18-2024 Caffeine Use Caffeine Use [facility] Work Phone: Start: 05-10-2018 End: 08-22-2022 Tobacco smoking status NHIS Never smoked tobacco [facility] Start: 08-22-2022 Tobacco use and exposure Smokeless tobacco non-user [facility] Work Phone: Start: 02-17-2023 End: 04-18-2024 Tobacco use panel [facility] Work Phone: Start: 1990 Sex Assigned At Female U [facility] Start: 02-07-2023 End: 08-30-2024 Exposure to SARS-CoV-2 (event) Not sure [facility] Start: 09-01-2023 End: 12-01-2024 Alcoholic beverage intake Ex-drinker (finding) [facility] Work Phone: Start: 09-06-2023 End: 09-16-2023 Exposure to SARS-CoV-2 (event) Unable to assess [facility] Start: 04-02-2024 Sex Female (finding) [facility] Has the electric, gas, oil, or water company threatened to shut off services in your home in past 12Mo No [facility] Work Phone: How often to you hav e a drink containing alcohol? Never [facility] Work Phone: Start: 04-11-2022 How many standard drinks containing alcohol do you have on a typical day? Patient does not drink [facility] Work Phone: (I/We) worried whether (my/our) food would run out before (I/we) got money to buy more. Never true [facility] Work Phone: NEGATED: Highlighted row - Never smoker [facility] Work Phone: NEGATED: Highlighted rowStart: AARON History of tobacco use Passive smoker [facility] Work Phone: Functional Status Date Assessment Result Facility 11-17-2024 Patient Health Questionnaire 2 item (PHQ-2) [Reported] [facility] Work Phone: 11-09-2024 [place] - suicide severity rating scale screener - recent [C-SSRS] [facility] Work Phone: NEGATED: Highlighted row Functional performance Functional status health issues are not documented Disease [facility]-Paulino lala [facility] Work Phone: Mental Status Date Assessment Result Facility NEGATED: Highlighted row Cognitive function [Interpretation] Cognitive status health issues are not documented Disease [facility]enter[facility]-Nirmal nelson [facility] Work Phone: Clinical Notes 06-28-2018 to 12-07-2024 Kiko Aburto APRN-LORI - 12/07/2024 1:30 PM Karla Orozco DO - 11/17/2024 8:00 AM EDTSignificant [place] - Krystina Alicea RN - 11/09/2024 12:05 PM EDTDischarge Instructions Note Date & Type Note Facility 12-07-2024 History of Present illness Narrative Patient ID: Lola Higginbotham is a 34 y.o. female. Interval History: Ms. Higginbotham is a 27yo female with complicated Crohn's disease since 2011 , was hospitalized at [facility] in 07/2015 (1st since Dx) with [...] or edema Continues to follow with her eeg tech Denies changes of her appetite or unintentional weight loss She does not smoke or drink alcohol She is seeing her primary care doctor in August, who she plans to discuss her elevated diastolic BP with, which has been elevated since about August of 202209/16/2023: Consent: A telephone visit (audio only) between the patient at home and the provider at [facility] was utilized to provide this telehealth service. [...] due next year -She also saw her eeg tech, who she follows for uveitis, who says [...] is stable and fatigue is not worsening 02/17/2024: Consent: A telephone visit (audio only) between the patient at home and the provider at [facility] was utilized to provide this telehealth service. [...] B constitutional symptoms - Energy is stable 08/19/2024: Patient presents for follow-up visit. She was admitted last March for small bowel obstruction that resolved with NG suction. She had a follow-up with her GI doctor on 07/05/2024. She continues on her Crohn's medications without any changes. Recall that she has tried oral iron in the past but cannot tolerate it. She states that her menstrual cycle is heavy for the first few days, it comes monthly and last about 4 to 5 days total. Recall that she does not drink alcohol or smoke cigarettes, she says that she does not work out routinely and does eat frozen foods somewhat regularly. States she is due to see her primary care in October. Patient had a CRP level of 6.8 on 07/05/2024. Subjective Virtual or Telephone Consent An interactive audio and video telecommunication system which permits real time communications between the patient (at the originating site) and provider (at the distant site) was utilized to provide this telehealth service. Verbal consent was requested and obtained from Lola Higginbotham on this date, 12/08/24 for a telehealth visit and the patient's location was confirmed at the time of the visit. Patient presents for follow up visit. She is s/p Venofer x1 on 09/07/24. She reports tolerating well. She is not on oral iron. She had a colonoscopy since last visit and was told there was not active Crohn's. She says her energy is not the greatest but she does not get a lot of rest. She denies signs of bleeding. Reports her menstrual cycles continue to have a a few heavier days where she is changing her pad or tampon every few hours, says it got heavier after her 2nd child about 3 years ago. She does not have a DIAMOND SAW OPERATOR but follows with her PCP for pelvic exams. She otherwise is doing well. Patient denies any drenching night sweats or recent infections. Patient denies chest pain, heart palpitations, shortness of breath, dyspnea on exertion, fevers or chills, nausea, vomiting, constipation, diarrhea. She states she is having bowel movements 1-2 times per day. She denies any black or very dark stools, hematuria, hematochezia or other signs of bleeding. She denies pica, restless leg, issues with sleeping, changes of her hair or other concerns. ROS 14 points performed, See HPI for exceptions Social History Tobacco Use Smoking status: Never Passive exposure: Never Smokeless tobacco: Never Vaping Use Vaping status: Never Used Substance Use Topics Alcohol use: Not Currently Drug use: Never Objective Visit Vitals OB Status Having periods Smoking Status Never Physical exam and VS not completed due to virtual visit Labs: Lab Results Component Value Date WBC 11.1 12/06/2024 NEUTROABS 7.58 12/06/2024 IGABSOL 0.02 12/06/2024 LYMPHSABS 2.82 12/06/2024 MONOSABS 0.58 12/06/2024 EOSABS 0.07 12/06/2024 BASOSABS 0.05 12/06/2024 RBC 4.15 12/06/2024 MCV 84 12/06/2024 MCHC 31.3 (L) 12/06/2024 HGB 10.9 (L) 12/06/2024 HCT 34.8 (L) 12/06/2024 PLT 265 12/06/2024 Lab Results Component Value Date CREATININE 0.87 12/06/2024 BUN 10 12/06/2024 EGFR 90 12/06/2024 NA 137 12/06/2024 K 3.5 12/06/2024 CL 104 12/06/2024 CO2 26 12/06/2024 Lab Results Component Value Date ALT 10 12/06/2024 AST 13 12/06/2024 ALKPHOS 41 12/06/2024 BILITOT 0.3 12/06/2024 Lab Results Component Value Date IRON 52 12/06/2024 TIBC 315 12/06/2024 FERRITIN 50 12/06/2024 Lab Results Component Value Date [id number] 400 08/17/2024 Lab Results Component Value Date FOLATE 7.7 11/26/2021 Colonoscopy 11/09/24: Impression ? Normal. Performed random biopsy using biopsy forceps. ? External hemorrhoids Findings ? All observed locations appeared normal. Performed random biopsy using biopsy forceps. The IC anastomosis was stenotic but the paulo-TI appeared normal - bx obtainedConsistent with quiescent IBD; Rutgeerts score i0, SES-CD scores: rectum 0, sigmoid/descending colon 0, transverse colon 0, ascending colon 0, ileum 0, total score 0 ? External hemorrhoids observed during retroflexion Recommendation Await pathology results Follow up with me in clinic, due: 12/09/2024 Continue Susan and WANG Performance Status: Symptomatic; fully ambulatory Assessment/Plan Anemia [...] meantime if any new/worsening symptoms or questions/concerns 08/19/2024: - Presents for follow-up visit - Labs done 09-09 showed WBC 9.7, hemoglobin 10.7, MCV 84, platelets 299,000, vitamin B12 400, ferritin 44, iron saturation 18%, serum iron 62 - CRP on 07/05/2024 was 6.8 - Says overall she feels about the same - She does not tolerate oral iron - Discussed and given handouts on iron rich foods in the diet - Discussed IV Venofer and we will proceed with 1 dose since she does have a decrease in her hemoglobin and ferritin, she also has a menstrual cycle that has a few heavy days - We will not do a full course of iron since she does have a history of Crohn's and inflammation, she is aware to notify me if she has any new or worsening signs or symptoms of anemia or iron deficiency - For her elevated blood pressure we discussed monitoring her diet and limiting processed foods such as frozen foods, integrating routine exercise and limiting caffeine in addition to following up with her primary care provider - She does not have a blood pressure cuff at home to monitor, we will keep an eye on it when she comes in for her IV Venofer - She will return to clinic in 3 months to repeat her blood work including inflammatory markers and a cmp. 12/07/2024: - Presents for follow up visit - Labs done on 12/06/24 shows WBC 11.1, hgb 10.9, plt 265,000, iron sat 17%, ferritin 50, iron 52, normal renal and hepatic function. CRP 0.94, sed rate 56 - She is s/p venofer x1 on 09/07/24 - reports tolerating well - She did not have much improvement from 1 dose of Venofer so we will proceed with a full course this time - Discussed NEYDA is likely multifactorial from anemia of chronic inflammation (hx Crohn's and elevated sed rate) and her monthly menstrual cycle with a few heavier days - She follows closely with GI and had recent colonoscopy - She will RTC in about 3 months from the course of IV venofer for repeat labs and FUV 2. Crohn's diease -Currently on Humira injection [...] chronic blood loss - Clinic Appointment Request Virtual Est; KIKO ABURTO - Clinic Appointment Request MARIZA RO; Future - CBC and Auto Differential; Future - Comprehensive Metabolic Panel; Future - Ferritin; Future - Iron and TIBC; Future - Vitamin B12; Future Iron deficiency anemia, unspecified iron deficiency anemia type - Clinic Appointment Request Virtual Est; KIKO ABURTO - CBC and Auto Differential; Future - Comprehensive Metabolic Panel; Future - Ferritin; Future - Iron and TIBC; Future - Vitamin B12; Future Iron malabsorption (HHS-HCC) - Clinic Appointment Request Virtual Est; KIKO ABURTO - Clinic Appointment Request MARIZA RO; Future - CBC and Auto Differential; Future - Comprehensive Metabolic Panel; Future - Ferritin; Future - Iron and TIBC; Future - Vitamin B12; Future Crohn's disease of small and large intestines with complication (Multi) - Clinic Appointment Request Virtual Est; KIKO ABURTO Other orders - iron sucrose (Venofer) 300 mg in sodium chloride 0.9% 265 mL IV - sodium chloride 0.9 % bolus 500 mL - dextrose 5 % in water (D5W) bolus 500 mL - diphenhydrAMINE (BENADryl) injection 50 mg - methylPREDNISolone sod succinate (SOLU-Medrol) 40 mg/mL injection 40 mg - famotidine PF (Pepcid) injection 20 mg - EPINEPHrine (Epipen) injection syringe 0.3 mg - albuterol 2.5 mg /3 mL (0.083 %) nebulizer solution 3 mL JOE Krishna documented in this encounter [facility] Work Phone: 11-17-2024 History of Present illness Narrative Chief complaint: Chief Complaint Patient presents with Annual Exam HPI: Lola Higginbotham is a 34 y.o. female who presents for a physical Exercise: 1-2 times weekly for 20-30 minutes Alcohol: none Tobacco: none Drug: none Sexually active: not currently ROS: Constitutional: Denies fevers, chills, night sweats HEENT: Denies change in vision, change in hearing, sore throat, rhinorrhea, congestion Cardiovascular: Denies chest pain, SOB, racing heart, slow heart rate, palpitations, leg edema Pulmonary: Denies cough, wheezing, SOB Gastrointestinal: Denies abdominal pain, diarrhea, constipation, nausea, vomiting, heartburn Genitourinary: Denies dysuria, hematuria, incontinence, abnormal vaginal bleeding, abnormal vaginal discharge, sexual dysfunction Integumentary: Denies rash, new or changed skin lesions Neuro: Denies headache, numbness, tingling Musculoskeletal: Denies myalgias, arthralgias, back pain Psych: denies change in mood, sleeping difficulties Heme: denies bruising or bleeding Physical exam: BP 118/76 (BP Location: Right arm, Patient Position: Sitting) Temp 35.9 C (96.6 F) Ht 1.6 m (5' 3 ) Wt 93.4 kg (206 lb) BMI 36.49 kg/m General: NAD, well appearing female Head: normocephalic Ears: EAC patent, TM normal bilaterally Eyes: EOM intact, PERRLA Nose: moist Mouth: moist, good dentition Heart: RRR, no murmur appreciated Lungs: CTAB, no wheezes, rales, rhonchi Abdomen: soft, non tender, no organomegaly Psych: mood and affect congruent, alert and oriented MSK: +5/5 gross strength Neuro: +2/4 patellar and biceps reflexes, sensation grossly intact Skin: warm and dry Assessment/Plan Problem List Items Addressed This Visit None Visit Diagnoses Cervical cancer screening - Primary Relevant Orders THINPREP PAP TEST Wellness examination Relevant Orders Tsh With Reflex To Free T4 If Abnormal Lipid panel Morbid obesity due to excess calories (Multi) BMI 36.0-36.9,adult Weight loss is recommended with improvements in diet and exercise habits Tdap booster is recommended (will need to do at the pharmacy or board of health) PAP/HPV testing performed in office today Continue care with endocrinology Fasting labs ordered Follow up annually, sooner as needed Matthew Orozco DO documented in this encounter [facility] Work Phone: 11-09-2024 manager occupational Note Dc to car via wc [facility] 11-09-2024 Miscellaneous Notes Dc to car via wc Dr Orozco to speak with pt/mother Tolerating po fluids and cookies; mother in hallway with children/updated documented in this encounter [facility] Work Phone: 11-09-[address] Orozco to speak with pt/mother [facility] Work Phone: 11-09-2024 manager occupational Note Tolerating po fluids and cookies; mother in hallway with children/updated [facility] Work Phone: 11-09-2024 Hospital Discharge instructions Padma Ware MD - 11/09/2024 11:32 AM EDT Patient Instructions Post Endoscopy Procedure The anesthetics, sedatives or narcotics which were given to you today will be acting in your body for the next 24 hours, so you might feel a little sleepy or groggy. This feeling should slowly wear off. Carefully read and follow the instructions. You received sedation today: - Do not drive or operate any machinery or power tools of any kind. - No alcoholic beverages today, not even beer or wine. - Do not make any important decisions or sign any legal documents. - No over the counter medications that contain alcohol or that may cause drowsiness. While it is common to experience mild to moderate abdominal distention, gas, or belching after your procedure, if any of these symptoms occur following discharge from the GI Lab or within one week of having your procedure, call the [facility] to be advised whether a visit to your nearest Urgent Care or Emergency Department is indicated. Take this paper with you if you go. - If you develop an allergic reaction to the medications that were given during your procedure such as difficulty breathing, rash, hives, severe nausea, vomiting or lightheadedness. - If you experience chest pain, shortness of breath, severe abdominal pain, fevers and chills. -If you develop signs and symptoms of bleeding such as blood in your spit, if your stools turn black, tarry, or bloody - If you have not urinated within 8 hours following your procedure. - If your IV site becomes painful, red, inflamed, or looks infected. Your physician recommends the additional following instructions: -You have a contact number available for emergencies. The signs and symptoms of potential delayed complications were discussed with you. You may return to normal activities tomorrow. -Resume your previous diet or other if specified. -Continue your present medications. -We are waiting for your pathology results, if applicable. The results will be available in [email or web address]. I will send you a message with any recommendations. -The findings and recommendations have been discussed with you and/or family. -Please see Medication Reconciliation Form for new medication/medications prescribed. If you experience any problems or have any questions following discharge from the GI Lab, please call: [phone] from 7 am- 4:30 pm. In the event of an emergency please go to the closest Emergency Department or call Dr. Orozco at [phone] documented in this encounter [facility] Work Phone: 11-09-2024 History and physical note Outpatient Hospital Procedure Patient Profile-Procedures Initial Info Patient Demographics Name Lola Higginbotham Date of 1990 Address [address] [facility] [id number] [facility] [address] Primary Secondary Phone Number PCP Matthew Orozco Procedures Colonoscopy Indication: Crohns disease Anesthesia Indication: complex or prolonged procedure Primary contact name and number Extended Emergency Contact Information Primary Emergency Contact: Marylou Higginbotham Relation: Parent Blender Snuff needed? No General Health Weight Vitals: 11/09/24 1003 Weight: 93.4 kg (206 lb) BMI Body mass index is 36.49 kg/m . Allergies RX Allergies[1] Past Medical History Medical History[2] Provider assessment Diagnosis Medication Reviewed - yes Prior to Admission medications Medication Sig Start Date End Date Taking? Authorizing Provider azaTHIOprine (Imuran) 50 mg tablet Take 1 tablet (50 mg) by mouth every other day. alternating 1 tablet every other day 03/02/24 03/02/25 Yes JOE Christianson azaTHIOprine (Imuran) 75 mg tablet Take 1 tablet (75 mg) by mouth every other day. 03/02/24 03/02/25 Yes JOE Christianson Synthroid 150 mcg tablet Take 1 tablet (150 mcg) by mouth early in the morning.. Take on an empty stomach at the same time each day, either 30 to 60 minutes prior to breakfast 03/07/24 03/07/25 Yes Ghulam Acevedo MD adalimumab (Humira,CF, Pen) 40 mg/0.4 mL pen injector kit pen-injector INJECT 40MG (1 PEN) UNDER THE SKIN ONCE WEEKLY DIRECTED. 05/09/24 05/09/25 JOE Christianson blood pressure monitor kit 1 Units once daily. 08/25/23 Matthew Orozco, fluticasone (Flonase) 50 mcg/actuation nasal spray Administer into affected nostril(s) if needed. 04/12/19 Historical Provider, This is my H&P Physical Exam Physical Exam Constitutional: Comments: Awake HENT: Head: Normocephalic. Cardiovascular: Rate and Rhythm: Normal rate and regular rhythm. Pulmonary: Effort: Pulmonary effort is normal. Breath sounds: Normal breath sounds. Abdominal: General: Bowel sounds are normal. Palpations: Abdomen is soft. Neurological: Mental Status: She is alert. Psychiatric: Mood and Affect: Mood normal. 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 Disorder of thyroid, unspecified Thyroid trouble Epistaxis 07/09/2017 Epistaxis Hypertrophy of nasal turbinates 02/08/2019 Nasal turbinate hypertrophy senior living (current) use of systemic steroids 07/09/2017 On prednisone therapy senior living (current) use of systemic steroids 05/05/2017 On [...] crisis or storm Hyperthyroidism Unspecified adrenocortical insufficiency 07/09/2017 Adrenal insufficiency Unspecified adrenocortical insufficiency 07/09/2017 Adrenal insufficiency Unspecified chorioretinal inflammation, 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, both eyes Unspecified chorioretinal inflammation, 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, bilateral Unspecified papilledema 11/08/2014 Optic nerve edema Unspecified ptosis of right eyelid 12/25/2021 Ptosis of right eyelid Unspecified ptosis of right eyelid 07/24/2014 Ptosis of right eyelid T [facility] Work Phone: 11-09-2024 History and physical note Outpatient Hospital Procedure Patient Profile-Procedures Initial Info Patient Demographics Name Lola Higginbotham Date of 1990 Address [address] [facility] [id number] [facility] [address] Primary Secondary Phone Number PCP Matthew Orozco Procedures Colonoscopy Indication: Crohns disease Anesthesia Indication: complex or prolonged procedure Primary contact name and number Extended Emergency Contact Information Primary Emergency Contact: Marylou Higginbotham Relation: Parent Blender Snuff needed? No General Health Weight Vitals: 11/09/24 1003 Weight: 93.4 kg (206 lb) BMI Body mass index is 36.49 kg/m . Allergies RX Allergies[1] Past Medical History Medical History[2] Provider assessment Diagnosis Medication Reviewed - yes Prior to Admission medications Medication Sig Start Date End Date Taking? Authorizing Provider azaTHIOprine (Imuran) 50 mg tablet Take 1 tablet (50 mg) by mouth every other day. alternating 1 tablet every other day 03/02/24 03/02/25 Yes JOE Christianson azaTHIOprine (Imuran) 75 mg tablet Take 1 tablet (75 mg) by mouth every other day. 03/02/24 03/02/25 Yes JOE Christianson Synthroid 150 mcg tablet Take 1 tablet (150 mcg) by mouth early in the morning.. Take on an empty stomach at the same time each day, either 30 to 60 minutes prior to breakfast 03/07/24 03/07/25 Yes Ghulam Acevedo MD adalimumab (Humira,CF, Pen) 40 mg/0.4 mL pen injector kit pen-injector INJECT 40MG (1 PEN) UNDER THE SKIN ONCE WEEKLY DIRECTED. 05/09/24 05/09/25 Binu Baldwin APRN-PAINT PREP TECHNICIAN blood pressure monitor kit 1 Units once daily. 08/25/23 Matthew Orozco, fluticasone (Flonase) 50 mcg/actuation nasal spray Administer into affected nostril(s) if needed. 04/12/19 Historical Provider, This is my H&P Physical Exam Physical Exam Constitutional: Comments: Awake HENT: Head: Normocephalic. Cardiovascular: Rate and Rhythm: Normal rate and regular rhythm. Pulmonary: Effort: Pulmonary effort is normal. Breath sounds: Normal breath sounds. Abdominal: General: Bowel sounds are normal. Palpations: Abdomen is soft. Neurological: Mental Status: She is alert. Psychiatric: Mood and Affect: Mood normal. 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 Disorder of thyroid, unspecified Thyroid trouble Epistaxis 07/09/2017 Epistaxis Hypertrophy of nasal turbinates 02/08/2019 Nasal turbinate hypertrophy 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 07/09/2017 On prednisone therapy senior living (current) use of systemic steroids 05/05/2017 On [...] crisis or storm Hyperthyroidism Unspecified adrenocortical insufficiency 07/09/2017 Adrenal insufficiency Unspecified adrenocortical insufficiency 07/09/2017 Adrenal insufficiency Unspecified chorioretinal inflammation, 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 female who presents for a follow up appointment Patient with history of Crohn's disease here for a follow up appointment She is currently on Humira once weekly injections and azathioprine - alternating 50mg and 75mg every other day due to inject 09/01/2024 Currently moving bowels 1-2x per day formed stool - denies blood mucous or melena Hx of Uveitis - sees eeg tech every 6 months Left intermittent lump under left axilla. Removed in March per [employer] in [place] - Hx of HS the patient denies any skin rashes , joint pain or stiffness , mucous membrane ulcerations weight stable She was dx with hydranitis supertiva - was using creams - had one removed- she is scheduled to see derm - will discuss dose with them No recurrent abd pain, obstructive sx Med list notable for Humira once weekly , Imuran 75mg every other day, Imuran 50mg every other day Labs notable for No fhx of CRC. Prev endoscopic eval: >> Colonoscopy 04/2022 Dr. Prem Browning Impression: - Patent end-to-side ileo-colonic anastomosis, characterized by healthy appearing mucosa. - Stricture at the anastomosis, it is chronic and no active inflammation was seen. Could not traverse with peds colonoscopy, - The entire examined colon is normal. Biopsied. - The examination was otherwise normal on direct and retroflexion views. REVIEW OF SYSTEMS Review of Systems Constitutional: Negative for chills, decreased appetite, fever and weight loss. Cardiovascular: Negative for chest pain. Respiratory: Negative for cough and shortness of breath. Musculoskeletal: Negative for joint pain. Gastrointestinal: Negative for bloating, abdominal pain, constipation, diarrhea, dysphagia, heartburn, hematemesis, hematochezia, melena, nausea and vomiting. 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/2016 Cytomegalovirus (CMV) viremia Disorder of thyroid, unspecified Thyroid trouble Epistaxis 07/09/2017 Epistaxis Hypertrophy of nasal turbinates 02/08/2019 Nasal turbinate hypertrophy senior living (current) use of systemic steroids 07/09/2017 On prednisone therapy senior living (current) use of systemic steroids 05/05/2017 On [...] crisis or storm Hyperthyroidism Unspecified adrenocortical insufficiency 07/09/2017 Adrenal insufficiency Unspecified adrenocortical insufficiency 07/09/2017 Adrenal insufficiency Unspecified chorioretinal inflammation, bilateral [...] 3 azaTHIOprine (Imuran) 50 mg tablet Take 1 tablet (50 mg) by mouth every other day. alternating 1 tablet every other day 45 tablet 3 azaTHIOprine (Imuran) 75 mg tablet Take 1 tablet (75 mg) by mouth every other day. 45 tablet 3 blood pressure monitor kit 1 Units once daily. 1 kit 0 fluticasone (Flonase) 50 mcg/actuation nasal spray Administer into affected nostril(s) if needed. Synthroid 150 mcg tablet Take 1 tablet (150 mcg) by mouth early in the morning.. Take on an empty stomach at the same time each day, either 30 to 60 minutes prior to breakfast 30 tablet 11 No current facility-administered medications for this visit. [...] Psychiatric: Mood and Affect: Mood normal. ASSESSMENT 34-year-old female presents for follow-up of Crohn's disease. She has both small and large bowel and has had 1 surgical resection of the terminal ileum. She is currently on weekly Humira with the recent drug level of 12 and no evidence of antidrug antibody. She also takes azathioprine 50 and 75 g alternating for uveitis. Her most recent 6-TG metabolites were stable. Her last colonoscopy did not show any evidence of active disease and she is due again this year. She had an episode of a bowel obstruction in April 2024 that resolved with an NG tube. A small bowel follow-through was unremarkable for any small bowel narrowing at the time. She has not had any recurrent episodes of obstructive symptoms She was diagnosed with hidradenitis suppurativa in 2018. She was followed by dermatology and is scheduled to see them soon. She is currently on Humira with an appropriate drug level but she will discuss with them regarding dosing. We will schedule her for a colonoscopy this year to assess disease. I will see her in follow-up in 6 months Evaluation requested by Dr. Matthew Orozco DO. [...] and munoz findings as documented by the Data Processing Operator and edited as appropriate. Signature: Padma Orozco MD Date: 08/29/2024 Time: 1:31 PM documented in this encounter [facility] Work Phone: 08-19-2024 History of Present illness Narrative Patient ID: Lola Higginbotham is a 34 y.o. female. Interval History: Ms. Higginbotham is a 27yo female with complicated Crohn's disease since 2011 , was hospitalized at [facility] in 07/2015 (1st since Dx) with [...] or edema Continues to follow with her eeg tech Denies changes of her appetite or unintentional weight loss She does not smoke or drink alcohol She is seeing her primary care doctor in August, who she plans to discuss her elevated diastolic BP with, which has been elevated since about August of 202209/16/2023: Consent: A telephone visit (audio only) between the patient at home and the provider at [facility] was utilized to provide this telehealth service. [...] due next year -She also saw her eeg tech, who she follows for uveitis, who says [...] is stable and fatigue is not worsening 02/17/2024: Consent: A telephone visit (audio only) between the patient at home and the provider at [facility] was utilized to provide this telehealth service. [...] B constitutional symptoms - Energy is stable Subjective 08/19/2024: Patient presents for follow-up visit. She was admitted last March for small bowel obstruction that resolved with NG suction. She had a follow-up with her GI doctor on 07/05/2024. She continues on her Crohn's medications without any changes. Recall that she has tried oral iron in the past but cannot tolerate it. She states that her menstrual cycle is heavy for the first few days, it comes monthly and last about 4 to 5 days total. Recall that she does not drink alcohol or smoke cigarettes, she says that she does not work out routinely and does eat frozen foods somewhat regularly. States she is due to see her primary care in October. Patient had a CRP level of 6.8 on 07/05/2024. Patient denies any drenching night sweats or recent infections. Patient denies chest pain, heart palpitations, shortness of breath, dyspnea on exertion, fevers or chills, nausea, vomiting, constipation, diarrhea. She states she is having bowel movements 1-2 times per day. She denies any black or very dark stools, hematuria, hematochezia or other signs of bleeding. She denies pica, restless leg, issues with sleeping, changes of her hair or other concerns. ROS 14 points performed, See HPI for exceptions Social History Tobacco Use Smoking status: Never Passive exposure: Never Smokeless tobacco: Never Vaping Use Vaping status: Never Used Substance Use Topics Alcohol use: Not Currently Drug use: Never Objective Visit Vitals OB Status Having periods Smoking Status Never Visit Vitals BP (!) 137/92 Pulse 73 Temp 36.5 C (97.7 F) Resp 18 Wt 94.8 kg (208 lb 15.9 oz) SpO2 95% BMI 37.02 kg/m OB Status Having periods Smoking Status Never BSA 2.05 m Physical Exam Constitutional: General: She is not in acute distress. Appearance: Normal appearance. HENT: Head: Normocephalic. Mouth/Throat: Mouth: Mucous membranes are moist. Pharynx: No oropharyngeal exudate or posterior oropharyngeal erythema. Eyes: General: No scleral icterus. Pupils: Pupils are equal, round, and reactive to light. Cardiovascular: Rate and Rhythm: Normal rate and regular rhythm. Pulmonary: Effort: Pulmonary effort is normal. No respiratory distress. Breath sounds: Normal breath sounds. No wheezing. Abdominal: General: Abdomen is flat. Bowel sounds are normal. There is no distension. Palpations: Abdomen is soft. Tenderness: There is no abdominal tenderness. Musculoskeletal: General: Normal range of motion. Cervical back: Normal range of motion and neck supple. Skin: General: Skin is warm and dry. Neurological: General: No focal deficit present. Mental Status: She is alert and oriented to person, place, and time. Mental status is at baseline. Motor: No weakness. Gait: Gait normal. Psychiatric: Mood and Affect: Mood normal. Behavior: Behavior normal. Judgment: Judgment normal. Labs: Lab Results Component Value Date WBC 9.7 08/17/2024 NEUTROABS 6.03 08/17/2024 IGABSOL 0.01 08/17/2024 LYMPHSABS 3.00 08/17/2024 MONOSABS 0.49 08/17/2024 EOSABS 0.09 08/17/2024 BASOSABS 0.03 08/17/2024 RBC 4.09 08/17/2024 MCV 84 08/17/2024 MCHC 31.2 (L) 08/17/2024 HGB 10.7 (L) 08/17/2024 HCT 34.3 (L) 08/17/2024 PLT 299 08/17/2024 Lab Results Component Value Date CREATININE 0.70 04/20/2024 BUN 8 04/20/2024 EGFR >90 04/20/2024 NA 139 04/20/2024 K 3.9 04/20/2024 CL 108 (H) 04/20/2024 CO2 21 04/20/2024 Lab Results Component Value Date ALT 9 04/16/2024 AST 14 04/16/2024 ALKPHOS 54 04/16/2024 BILITOT 0.4 04/16/2024 Lab Results Component Value Date IRON 62 08/17/2024 TIBC 341 08/17/2024 FERRITIN 44 08/17/2024 Lab Results Component Value Date FVFTERHE29 400 08/17/2024 Lab Results Component Value Date FOLATE 7.7 [...] meantime if any new/worsening symptoms or questions/concerns 08/19/2024: - Presents for follow-up visit - Labs done 09-09 showed WBC 9.7, hemoglobin 10.7, MCV 84, platelets 299,000, vitamin B12 400, ferritin 44, iron saturation 18%, serum iron 62 - CRP on 07/05/2024 was 6.8 - Says overall she feels about the same - She does not tolerate oral iron - Discussed and given handouts on iron rich foods in the diet - Discussed IV Venofer and we will proceed with 1 dose since she does have a decrease in her hemoglobin and ferritin, she also has a menstrual cycle that has a few heavy days - We will not do a full course of iron since she does have a history of Crohn's and inflammation, she is aware to notify me if she has any new or worsening signs or symptoms of anemia or iron deficiency - For her elevated blood pressure we discussed monitoring her diet and limiting processed foods such as frozen foods, integrating routine exercise and limiting caffeine in addition to following up with her primary care provider - She does not have a blood pressure cuff at home to monitor, we will keep an eye on it when she comes in for her IV Venofer - She will return to clinic in 3 months to repeat her blood work including inflammatory markers and a cmp. 2. Crohn's diease -Currently on Humira injection [...] chronic blood loss - Clinic Appointment Request Virtual Est; KIKO ABURTO; Future - CBC and Auto Differential; Future - Comprehensive Metabolic Panel; Future - C-Reactive Protein; Future - Ferritin; Future - Iron and TIBC; Future - Sedimentation Rate; Future - Folate; Future - Vitamin B12; Future Iron deficiency anemia, unspecified iron deficiency anemia type - Clinic Appointment Request KIKO ABURTO - Clinic Appointment Request Virtual Est; KIKO ABURTO; Future - CBC and Auto Differential; Future - Comprehensive Metabolic Panel; Future - C-Reactive Protein; Future - Ferritin; Future - Iron and TIBC; Future - Sedimentation Rate; Future - Folate; Future - Vitamin B12; Future Iron malabsorption (HHS-HCC) - Clinic Appointment Request KIKO ABURTO - Clinic Appointment Request Virtual Est; KIKO ABURTO; Future - CBC and Auto Differential; Future - Comprehensive Metabolic Panel; Future - C-Reactive Protein; Future - Ferritin; Future - Iron and TIBC; Future - Sedimentation Rate; Future - Folate; Future - Vitamin B12; Future Crohn's disease of small and large intestines with complication (Multi) - Clinic Appointment Request Virtual Est; KIKO ABURTO; Future - CBC and Auto Differential; Future - Comprehensive Metabolic Panel; Future - C-Reactive Protein; Future - Ferritin; Future - Iron and TIBC; Future - Sedimentation Rate; Future - Folate; Future - Vitamin B12; Future Other orders - iron sucrose (Venofer) 300 mg in sodium chloride 0.9% 250 mL IV - sodium chloride 0.9 % bolus 500 mL - dextrose 5 % in water (D5W) bolus 500 mL - diphenhydrAMINE (BENADryl) injection 50 mg - methylPREDNISolone sod succinate (SOLU-Medrol) 40 mg/mL injection 40 mg - famotidine PF (Pepcid) injection 20 mg - EPINEPHrine (Epipen) injection syringe 0.3 mg - albuterol 2.5 mg /3 mL (0.083 %) nebulizer solution 3 mL - heparin flush 10 unit/mL syringe 50 Units - heparin flush 100 unit/mL syringe 500 Units - alteplase (Cathflo Activase) injection 2 mg JOE Krishna documented in this encounter [facility] Work Phone: 07-05-2024 History of Present illness Narrative REASON FOR VISIT: Crohn's disease HPI: Lola Higginbotham is a 34 y.o. female who presents for a follow up appointment Patient with history of Crohn's disease of small and large intestine. She is currently on Humira weekly and Azathioprine - alternates 75mg and 50mg every other day due to inject Humira on 07/07 She was inpatient in April for sbo - resolved with NGT - SBFT negative - sent home - no recurrent sx Currently moving bowels 1x per day - consistency varies. Denies blood mucous or melena the patient denies any skin rashes , joint pain or stiffness , mucous membrane ulcerations . Hx of Uveitis - follows with eye doctor every 6 months - controlled Appetite and weight stable Med list notable for humira, azathioprine Labs notable for No fhx of CRC. Prev endoscopic eval: >> Colonoscopy 04/2022 - Crohn's score 0 , repeat in 3 years REVIEW OF SYSTEMS Review of Systems Constitutional: Negative for chills, decreased appetite, fever and weight loss. Cardiovascular: Negative for chest pain. Respiratory: Negative for cough and shortness of breath. Musculoskeletal: Negative for joint pain. Gastrointestinal: Negative for bloating, abdominal pain, change in bowel habit, bowel incontinence, constipation, diarrhea, dysphagia, heartburn, hematemesis, hematochezia, melena, nausea and vomiting. 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 alternating 1 tablet every other day 45 tablet 3 azaTHIOprine (Imuran) 75 mg tablet Take 1 tablet (75 mg) by mouth every other day. 45 tablet 3 blood pressure monitor kit 1 Units once daily. 1 kit 0 fluticasone (Flonase) 50 mcg/actuation nasal spray Administer into affected nostril(s) if needed. Synthroid 150 mcg tablet Take 1 tablet (150 mcg) by mouth early in the morning.. Take on an empty stomach at the same time each day, either 30 to 60 minutes prior to breakfast 30 tablet 11 No current facility-administered medications for this visit. [...] Psychiatric: Mood and Affect: Mood normal. ASSESSMENT 34-year-old female diagnosed with Crohn's disease affecting the small and large bowel. She is currently on weekly Humira injections plus azathioprine which was added due to uveitis. Her last colonoscopy did not show any active disease. She was admitted to an outside hospital transferred to [facility] with a bowel obstruction in April 2024. Resolved with NG tube to wall suction a small bowel follow-through was unremarkable for any small bowel narrowing. She was discharged home without incident. Overall she is feeling well she denies any recurrent symptoms. She is tolerating a regular diet. We will check labs including inflammatory markers and a Humira drug level. Her last level after switching to weekly injections was over 10 in 2020. She will be due for repeat colonoscopy later this year. I will keep her August appointment as scheduled Evaluation requested by Dr. Matthew Orozco DO. [...] and munoz findings as documented by the Data Processing Operator and edited as appropriate. Signature: Padma Orozco MD Date: 07/04/2024 Time: 2:32 PM documented in this encounter [facility] Work Phone: 04-20-2024 Hospital course Narrative Discharge Diagnosis SBO (small bowel obstruction) (Multi) Issues Requiring Follow-Up No need for follow up, may follow up with PCP as needed Test Results Pending At Discharge Pending Labs No current pending labs. Hospital Course Lola Higginbotham is a 33 y.o. female with a past medical history Crohn's Disease (on Humira), hypothyroidism 2/2 thyroidectomy, remote DVT (2016, not on AC), and multiple abdominal surgeries who presented to [facility] with 2 days of abdominal pain, nausea, emesis, and loss of appetite CT at OSH showed concerns for SBO. She was transferred to [facility] for surgical evaluation of SBO. Patient treated with non-operative medical management. NGT placed and patient was decompressed for approximately 24 hours. On 04/18 patient underwent a SBFT with no evidence of obstruction. Patient had return of bowel function and NGT was removed. Patient started on a diet for which she tolerated well. Patient is being discharged home with no needs. Total time spent on discharge instructions approximately thirty minutes. Pertinent Physical Exam At Time of Discharge Physical Exam Constitutional: Appearance: Normal appearance. Eyes: Extraocular Movements: Extraocular movements intact. Cardiovascular: Comments: Non cyanotic Pulmonary: Effort: Pulmonary effort is normal. Abdominal: Comments: Soft, non distended, non tender to palpitation Musculoskeletal: General: Normal range of motion. Skin: General: Skin is warm and dry. Neurological: Mental Status: She is alert and oriented to person, place, and time. Psychiatric: Behavior: Behavior normal. Home Medications Medication List CONTINUE taking these medications * azaTHIOprine 50 mg tablet; Commonly known as: Imuran; Take 1 tablet (50 mg) by mouth every other day. alternating 1 tablet every other day * azaTHIOprine 75 mg tablet; Commonly known as: Imuran; Take 1 tablet (75 mg) by mouth every other day. blood pressure monitor kit; 1 Units once daily. fluticasone 50 mcg/actuation nasal spray; Commonly known as: Flonase Humira(CF) Pen 40 mg/0.4 mL pen injector kit pen-injector; Generic drug: adalimumab; INJECT 40MG (1 PEN) UNDER THE SKIN ONCE WEEKLY DIRECTED. Synthroid 150 mcg tablet; Generic drug: levothyroxine; Take 1 tablet (150 mcg) by mouth early in the morning.. Take on an empty stomach at the same time each day, either 30 to 60 minutes prior to breakfast * This list has 2 medication(s) that are the same as other medications prescribed for you. Read the directions carefully, and ask your doctor or other care provider to review them with you. Outpatient Follow-Up Future Appointments Date Time Provider Department Center 05/25/2024 12:00 PM [facility] SOCIAL MEDIA PROJECT MANAGER [facility] [place] 08/17/2024 12:00 PM [facility] MED[facility] PROJECT [facility] [place] 08/19/2024 8:00 AM Kiko Aburto APRN-PAINT PREP TECHNICIAN [id number] [facility] [place] 08/30/2024 9:40 AM Padma Ware MD [id number] [facility] 09/02/2024 9:30 AM Tom Vasquez MD [id number] [facility] 10/19/2024 1:30 PM Matthew Orozco DO [id number] [place] JOE Parekh documented in this encounter [facility] Work Phone: 04-20-2024 Hospital Note Formatting of t his note might be different from the original. Lola Higginbotham is a 33 y.o. female with a past medical history Crohn's Disease (on Humira), hypothyroidism 2/2 thyroidectomy, remote DVT (2015, not on AC), and multiple abdominal surgeries who presented to [facility] with 2 days of abdominal pain, nausea, emesis, and loss of appetite CT at OSH showed concerns for SBO. She was transferred to [facility] for surgical evaluation of SBO. Patient treated with non-operative medical management. NGT placed and patient was decompressed for approximately 24 hours. On 04/18 patient underwent a SBFT with no evidence of obstruction. Patient had return of bowel function and NGT was removed. Patient started on a diet for which she tolerated well. Patient is being discharged home with no needs. [facility] Work Phone: 04-20-2024 Miscellaneous Notes Lola Higginbotham is a 33 y.o. female with a past medical history Crohn's Disease (on Humira), hypothyroidism 2/2 thyroidectomy, remote DVT (2015, not on AC), and multiple abdominal surgeries who presented to [facility] with 2 days of abdominal pain, nausea, emesis, and loss of appetite CT at OSH showed concerns for SBO. She was transferred to [facility] for surgical evaluation of SBO. Patient treated with non-operative medical management. NGT placed and patient was decompressed for approximately 24 hours. On 04/18 patient underwent a SBFT with no evidence of obstruction. Patient had return of bowel function and NGT was removed. Patient started on a diet for which she tolerated well. Patient is being discharged home with no needs. The patient's goals for the shift include pt will remain comfortable throughout shift The clinical goals for the shift include pt will tolerate clear liquid diet Problem: Pain - Adult Goal: Verbalizes/displays adequate comfort level or baseline comfort level Outcome: Progressing Problem: Safety - Adult Goal: Free from fall injury Outcome: Progressing Problem: Skin Goal: Participates in plan/prevention/treatment measures Outcome: Progressing Problem: Fall/Injury Goal: Be free from injury by end of the shift Outcome: Progressing The patient's goals for the shift include pt discomfort will improve throughout shift The clinical goals for the shift include pt will remain comfortable throughout shift Problem: Pain - Adult Goal: Verbalizes/displays adequate comfort level or baseline comfort level Outcome: Progressing Problem: Safety - Adult Goal: Free from fall injury Outcome: Progressing Problem: Skin Goal: Participates in plan/prevention/treatment measures Outcome: Progressing Problem: Fall/Injury Goal: Be free from injury by end of the shift Outcome: Progressing The patient's goals for the shift include get better The clinical goals for the shift include Patient will have adequate pain control throughout shift. Problem: Pain - Adult Goal: Verbalizes/displays adequate comfort level or baseline comfort level Outcome: Progressing Problem: Pain Goal: Takes deep breaths with improved pain control throughout the shift Outcome: Progressing Goal: Turns in bed with improved pain control throughout the shift Outcome: Progressing Goal: Walks with improved pain control throughout the shift Outcome: Progressing Goal: Performs ADL's with improved pain control throughout shift Outcome: Progressing The patient's goals for the shift include get better The clinical goals for the shift include patient will be HDS by end of shift Problem: Pain - Adult Goal: Verbalizes/displays adequate comfort level or baseline comfort level Outcome: Progressing Problem: Safety - Adult Goal: Free from fall injury Outcome: Progressing The patient's goals for the shift include get NGT removed The clinical goals for the shift include Patient will remain safe and free from injury throughout shift Problem: Pain - Adult Goal: Verbalizes/displays adequate comfort level or baseline comfort level Outcome: Progressing Problem: Safety - Adult Goal: Free from fall injury Outcome: Progressing Problem: Discharge Planning Goal: Discharge to home or other facility with appropriate resources Outcome: Progressing Problem: Chronic Conditions and Co-morbidities Goal: Patient's chronic conditions and co-morbidity symptoms are monitored and maintained or improved Outcome: Progressing Problem: Skin Goal: Decreased wound size/increased tissue granulation at next dressing change Outcome: Progressing Goal: Participates in plan/prevention/treatment measures Outcome: Progressing Goal: Prevent/manage excess moisture Outcome: Progressing Goal: Prevent/minimize sheer/friction injuries Outcome: Progressing Goal: Promote/optimize nutrition Outcome: Progressing Goal: Promote skin healing Outcome: Progressing Problem: Fall/Injury Goal: Not fall by end of shift Outcome: Progressing Goal: Be free from injury by end of the shift Outcome: Progressing Goal: Verbalize understanding of personal risk factors for fall in the hospital Outcome: Progressing Goal: Verbalize understanding of risk factor reduction measures to prevent injury from fall in the home Outcome: Progressing Goal: Use assistive devices by end of the shift Outcome: Progressing Goal: Pace activities to prevent fatigue by end of the shift Outcome: Progressing Problem: Pain Goal: Takes deep breaths with improved pain control throughout the shift Outcome: Progressing Goal: Turns in bed with improved pain control throughout the shift Outcome: Progressing Goal: Walks with improved pain control throughout the shift Outcome: Progressing Goal: Performs ADL's with improved pain control throughout shift Outcome: Progressing Goal: Participates in PT with improved pain control throughout the shift Outcome: Progressing Goal: Free from opioid side effects throughout the shift Outcome: Progressing Goal: Free from acute confusion related to pain meds throughout the shift Outcome: Progressing Problem: Pain - Adult Goal: Verbalizes/displays adequate comfort level or baseline comfort level Outcome: Progressing Problem: Safety - Adult Goal: Free from fall injury Outcome: Progressing Problem: Discharge Planning Goal: Discharge to home or other facility with appropriate resources Outcome: Progressing Problem: Chronic Conditions and Co-morbidities Goal: Patient's chronic conditions and co-morbidity symptoms are monitored and maintained or improved Outcome: Progressing Problem: Skin Goal: Decreased wound size/increased tissue granulation at next dressing change Outcome: Progressing Goal: Participates in plan/prevention/treatment measures Outcome: Progressing Goal: Prevent/manage excess moisture Outcome: Progressing Goal: Prevent/minimize sheer/friction injuries Outcome: Progressing Flowsheets (Taken 04/16/2024 1226) Prevent/minimize sheer/friction injuries: HOB 30 degrees or less Goal: Promote/optimize nutrition Outcome: Progressing Goal: Promote skin healing Outcome: Progressing Problem: Fall/Injury Goal: Not fall by end of shift Outcome: Progressing Goal: Be free from injury by end of the shift Outcome: Progressing Goal: Verbalize understanding of personal risk factors for fall in the hospital Outcome: Progressing Goal: Verbalize understanding of risk factor reduction measures to prevent injury from fall in the home Outcome: Progressing Goal: Use assistive devices by end of the shift Outcome: Progressing Goal: Pace activities to prevent fatigue by end of the shift Outcome: Progressing Problem: Pain Goal: Takes deep breaths with improved pain control throughout the shift Outcome: Progressing Goal: Turns in bed with improved pain control throughout the shift Outcome: Progressing Goal: Walks with improved pain control throughout the shift Outcome: Progressing Goal: Performs ADL's with improved pain control throughout shift Outcome: Progressing Goal: Participates in PT with improved pain control throughout the shift Outcome: Progressing Goal: Free from opioid side effects throughout the shift Outcome: Progressing Goal: Free from acute confusion related to pain meds throughout the shift Outcome: Progressing The patient's goals for the shift include help when needed The clinical goals for the shift include Patient will remain safe and free from injury throughout shift documented in this encounter [facility] Work Phone: 04-20-2024 Hospital Discharge instructions Mitchell Lerma, [employer]-PAINT PREP TECHNICIAN - 04/20/2024 1:23 PM EST May resume home Humira on discharge documented in this encounter [facility] Work Phone: 04-19-2024 Plan of care note The patient's goals for the shift include pt will remain comfortable throughout shift The clinical goals for the shift include pt will tolerate clear liquid diet Problem: Pain - Adult Goal: Verbalizes/displays adequate comfort level or baseline comfort level Outcome: Progressing Problem: Safety - Adult Goal: Free from fall injury Outcome: Progressing Problem: Skin Goal: Participates in plan/prevention/treatment measures Outcome: Progressing Problem: Fall/Injury Goal: Be free from injury by end of the shift Outcome: Progressing [facility] 04-19-2024 History of Present illness Narrative [facility] ACUTE CARE SURGERY - PROGRESS NOTE Patient Name: Lola Higginbotham Admit Date: [id number] : 1990 AGE: 33 y.o. GENDER: female TODAY'S ASSESSMENT AND PLAN OF CARE: Lola Higginbotham is a 33 y.o. female with a past medical history Crohn's Disease (on Humira), hypothyroidism 2/2 thyroidectomy, remote DVT (2016, not on AC), and multiple abdominal surgeries who presented to [facility] with 2 days of abdominal pain, nausea, emesis, and loss of appetite CT at OSH showed concerns for SBO. She was transferred to [facility] for surgical evaluation of SBO. Based on clinical history and presentation, high suspicion that patient has a distal partial small bowel obstruction 2/2 strictures from prior abdominal surgeries vs Crohn's. She remains hemodynamically stable. NG tube with gastric output. Still awaiting return of bowel function. Plan: Neuro: - multimodal pain GI: Small bowel obstruction -Adult diet Clear Liquid - IV Pantoprazole 40mg daily - Daily suppositories Renal/: no acute issues - IVF @50 - Replete electrolytes to goal K>4, Mg>2 Heme: no acute issues - lovenox 40mg for DVT ppx ID: no acute issues, mild leukocytosis - trend WBC (12.8 -> 12.7) Endo: no acute issues MSK/INTEG: - encourage ambulation, OOB - activity as tolerated Prophy - SCDs, Lovenox, Incentive Spirometer Dispo: RNF Discussed with attending David Varela MD General Surgery Resident PGY-1 [facility] [id number] CHIEF COMPLAINT / EVENTS LAST 24HRS / HPI: NAEO. Feeling well today, plan to remove NGT MEDICAL HISTORY / ROS: Admission history and ROS reviewed. Pertinent changes as follows: none PHYSICAL EXAM: Heart Rate: [81-97] Temp: [36.1 C (97 F)-36.8 C (98.2 F)] Resp: [16-18] BP: (136-149)/(86-100) SpO2: [95 %-99 %] . Physical Exam General: awake, alert, no acute distress HEENT: atraumatic, normocephalic CV: mild sinus tachycardia, normotensive Pulm: non-labored breathing on room air GI: abdomen soft, non-distended, non-tender to palpation, well-healed prior pfannenstiel scar. NG with gastric fluid output, non-bilious. : deferred Skin: warm, dry Extremities: no peripheral edema Psych: appropriate mood and affect IMAGING SUMMARY: No new imaging LABS: Results from last 7 days Lab Units 04/19/24 0532 04/18/24 0532 04/17/24 0532 04/16/24 1124 WBC AUTO x10*3/uL 10.7 11.1 12.7* 12.8* HEMOGLOBIN g/dL 10.8* 10.6* 11.8* 13.0 HEMATOCRIT % 35.5* 34.7* 38.3 38.5 PLATELETS AUTO x10*3/uL 283 305 335 337 NEUTROS PCT AUTO % -- -- -- 91.4 LYMPHS PCT AUTO % -- -- -- 8.0 MONOS PCT AUTO % -- -- -- 0.2 EOS PCT AUTO % -- -- -- 0.1 Results from last 7 days Lab Units 04/16/24 1124 APTT seconds 31 INR 1.2* Results from last 7 days Lab Units 04/19/24 0532 04/18/24 0532 04/17/24 0532 04/16/24 1124 SODIUM mmol/L 140 142 142 139 POTASSIUM mmol/L 3.7 3.8 3.3* 3.8 CHLORIDE mmol/L 109* 109* 106 107 CO2 mmol/L 22 23 26 20* BUN mg/dL 7 10 12 10 CREATININE mg/dL 0.72 0.85 0.91 0.78 CALCIUM mg/dL 8.3* 8.5* 8.7 9.0 PROTEIN TOTAL g/dL -- -- -- 8.3* BILIRUBIN TOTAL mg/dL -- -- -- 0.4 ALK PHOS U/L -- -- -- 54 ALT U/L -- -- -- 9 AST U/L -- -- -- 14 GLUCOSE mg/dL 83 65* 103* 138* Results from last 7 days Lab Units 04/16/24 1124 BILIRUBIN TOTAL mg/dL 0.4 I have reviewed all medications, laboratory results, and imaging pertinent for today's encounter. Cosigned by Kari Quach MD at 04/20/2024 3:45 PM EST Associated attestation - Kari Quach MD - 04/20/2024 3:45 PM EST I have seen and evaluated the patient, reviewed the labs and imaging, and discussed the patient with the multidisciplinary team. I have edited the note and/ or placed an addendum below. I agree with assessment and plan as documented. Patient denies having abdominal pain today. Plan to advance diet as tolerated 04/18/24 1458 Discharge Planning Living Arrangements Children Support Systems Family members Assistance Needed None Type of Residence Private residence Home or Post Acute Services None Expected Discharge Disposition Home Does the patient need discharge transport arranged? No Financial Resource Strain How hard is it for you to pay for the very basics like food, housing, medical care, and heating? Not hard Housing Stability In the last 12 months, was there a time when you were not able to pay the mortgage or rent on time? N Transportation Needs In the past 12 months, has lack of transportation kept you from medical appointments or from getting medications? no DC Planning: Went in and met with the pt, confirmed demographics. Transitional Care Coordination Progress Note: Patient discussed during interdisciplinary rounds. Plan per Medical/Surgical team: Pt not medically ready. Pt not in [facility] area. Needs: TBD [facility] Status: INP Discharge disposition: TBD Potential Barriers: None ADOD: 04/21 This TCC will continue to follow for home going needs and safe DC plan. Viridiana Florian. MARILEE. TCC. [facility] ACUTE CARE SURGERY - PROGRESS NOTE Patient Name: Lola Higginbotham Admit Date: [id number] : 1990 AGE: 33 y.o. GENDER: female TODAY'S ASSESSMENT AND PLAN OF CARE: Lola Higginbotham is a 33 y.o. female with a past medical history Crohn's Disease (on Humira), hypothyroidism 2/2 thyroidectomy, remote DVT (2016, not on AC), and multiple abdominal surgeries who presented to [place] with 2 days of abdominal pain, nausea, emesis, and loss of appetite CT at OSH showed concerns for SBO. She was transferred to [facility] for surgical evaluation of SBO. Based on clinical history and presentation, high suspicion that patient has a distal partial small bowel obstruction 2/2 strictures from prior abdominal surgeries vs Crohn's. She remains hemodynamically stable. NG tube with gastric output. Still awaiting return of bowel function. Plan: Neuro: - pain control: IV tylenol, IV robaxin, lidocaine patches while NPO CV: no acute issues PULM: no acute issues GI: Small bowel obstruction - NPO, mIVF - NG tube to LIWS > document output amount and characteristics - continue serial abdominal exams - IV Pantoprazole 40mg daily - Daily suppositories - Formal SBFT today Renal/: no acute issues - mIVF with LR @100 ml/hr - Replete electrolytes to goal K>4, Mg>2 Heme: no acute issues - lovenox 40mg for DVT ppx ID: no acute issues, mild leukocytosis - trend WBC (12.8 -> 12.7) Endo: no acute issues MSK/INTEG: - encourage ambulation, OOB - activity as tolerated Prophy - SCDs, Lovenox, Incentive Spirometer Dispo: RNF Discussed with attending David Varela MD General Surgery Resident PGY-1 ACS [id number] CHIEF COMPLAINT / EVENTS LAST 24HRS / HPI: NAEO. MEDICAL HISTORY / ROS: Admission history and ROS reviewed. Pertinent changes as follows: none PHYSICAL EXAM: Heart Rate: [74-94] Temp: [36.3 C (97.3 F)-36.9 C (98.5 F)] Resp: [16-18] BP: (135-148)/(85-98) SpO2: [94 %-98 %] . Physical Exam General: awake, alert, no acute distress HEENT: atraumatic, normocephalic CV: mild sinus tachycardia, normotensive Pulm: non-labored breathing on room air GI: abdomen soft, non-distended, non-tender to palpation, well-healed prior pfannenstiel scar. NG with gastric fluid output, non-bilious. : deferred Skin: warm, dry Extremities: no peripheral edema Psych: appropriate mood and affect IMAGING SUMMARY: No new imaging LABS: Results from last 7 days Lab Units 04/18/24 0532 04/17/24 0532 04/16/24 1124 WBC AUTO x10*3/uL 11.1 12.7* 12.8* HEMOGLOBIN g/dL 10.6* 11.8* 13.0 HEMATOCRIT % 34.7* 38.3 38.5 PLATELETS AUTO x10*3/uL 305 335 337 NEUTROS PCT AUTO % -- -- 91.4 LYMPHS PCT AUTO % -- -- 8.0 MONOS PCT AUTO % -- -- 0.2 EOS PCT AUTO % -- -- 0.1 Results from last 7 days Lab Units 04/16/24 1124 APTT seconds 31 INR 1.2* Results from last 7 days Lab Units 04/18/24 0532 04/17/24 0532 04/16/24 1124 SODIUM mmol/L 142 142 139 POTASSIUM mmol/L 3.8 3.3* 3.8 CHLORIDE mmol/L 109* 106 107 CO2 mmol/L 23 26 20* BUN mg/dL 10 12 10 CREATININE mg/dL 0.85 0.91 0.78 CALCIUM mg/dL 8.5* 8.7 9.0 PROTEIN TOTAL g/dL -- -- 8.3* BILIRUBIN TOTAL mg/dL -- -- 0.4 ALK PHOS U/L -- -- 54 ALT U/L -- -- 9 AST U/L -- -- 14 GLUCOSE mg/dL 65* 103* 138* Results from last 7 days Lab Units 04/16/24 1124 BILIRUBIN TOTAL mg/dL 0.4 I have reviewed all medications, laboratory results, and imaging pertinent for today's encounter. Cosigned by Kari Quach MD at 04/18/2024 7:38 PM EST Associated attestation - Kari Quach MD - 04/18/2024 7:38 PM EST I have seen and evaluated the patient, reviewed the labs and imaging, and discussed the patient with the multidisciplinary team. I have edited the note and/ or placed an addendum below. I agree with assessment and plan as documented. Small bowel follow through unremarkable. NGT clamp trial 04/19 Pharmacy Admission Order Reconciliation Review Lola Higginbotham is a 33 y.o. female admitted for SBO (small bowel obstruction) (Multi). Pharmacy reviewed the patient's unreconciled admission medications. Prior to admission medications that were reviewed and acted on by the pharmacist include: Imuran - was reodered Humira, once weekly These medications have been reconciled. Any other unreconcilied medications have been addressed and will be ordered or held by the patient's medical team. Medications addressed by the pharmacist may be added or changed by the patient's medical team at any time. Mercedes Gonzáles PharmD Transitions of Care Pharmacist [facility] Services Please reach out via Secure Chat for questions [facility] ACUTE CARE SURGERY - PROGRESS NOTE Patient Name: Lola Higginbotham Admit Date: [id number] : 1990 AGE: 33 y.o. GENDER: female TODAY'S ASSESSMENT AND PLAN OF CARE: Lola Higginbotham is a 33 y.o. female with a past medical history Crohn's Disease (on Humira), hypothyroidism 2/2 thyroidectomy, remote DVT (2016, not on AC), and multiple abdominal surgeries who presented to [place] with 2 days of abdominal pain, nausea, emesis, and loss of appetite CT at OSH showed concerns for SBO. She was transferred to [facility] for surgical evaluation of SBO. Based on clinical history and presentation, high suspicion that patient has a distal partial small bowel obstruction 2/2 strictures from prior abdominal surgeries vs Crohn's. She remains hemodynamically stable. NG tube with gastric output. Still awaiting return of bowel function. Plan: Neuro: - pain control: IV tylenol, IV robaxin, lidocaine patches while NPO CV: no acute issues PULM: no acute issues GI: Small bowel obstruction - NPO, mIVF - NG tube to LIWS > document output amount and characteristics - continue serial abdominal exams - IV Pantoprazole 40mg daily - Daily suppositories Renal/: no acute issues - mIVF with LR @100 ml/hr - Replete electrolytes to goal K>4, Mg>2 Heme: no acute issues - lovenox 40mg for DVT ppx ID: no acute issues, mild leukocytosis - trend WBC (12.8 -> 12.7) Endo: no acute issues MSK/INTEG: - encourage ambulation, OOB - activity as tolerated Prophy - SCDs, Lovenox, Incentive Spirometer Dispo: RNF Discussed with attending Dr. Vicente Franklin MD General Surgery Resident PGY-2 ACS [id number] CHIEF COMPLAINT / EVENTS LAST 24HRS / HPI: NAEO. Still feels miserable. NG tube with 400 ml gastric output. No flatus or BM yet. MEDICAL HISTORY / ROS: Admission history and ROS reviewed. Pertinent changes as follows: none PHYSICAL EXAM: Heart Rate: [80-115] Temp: [35.9 C (96.6 F)-36.4 C (97.5 F)] Resp: [13-19] BP: (131-163)/(86-110) Weight: [93 kg (205 lb 0.4 oz)] SpO2: [93 %-97 %] . Physical Exam General: awake, alert, no acute distress HEENT: atraumatic, normocephalic CV: mild sinus tachycardia, normotensive Pulm: non-labored breathing on room air GI: abdomen soft, non-distended, non-tender to palpation, well-healed prior pfannenstiel scar. NG with gastric fluid output, non-bilious. : deferred Skin: warm, dry Extremities: no peripheral edema Psych: appropriate mood and affect IMAGING SUMMARY: No new imaging LABS: Results from last 7 days Lab Units 04/17/24 0532 04/16/24 1124 WBC AUTO x10*3/uL 12.7* 12.8* HEMOGLOBIN g/dL 11.8* 13.0 HEMATOCRIT % 38.3 38.5 PLATELETS AUTO x10*3/uL 335 337 NEUTROS PCT AUTO % -- 91.4 LYMPHS PCT AUTO % -- 8.0 MONOS PCT AUTO % -- 0.2 EOS PCT AUTO % -- 0.1 Results from last 7 days Lab Units 04/16/24 1124 APTT seconds 31 INR 1.2* Results from last 7 days Lab Units 04/17/24 0532 04/16/24 1124 SODIUM mmol/L 142 139 POTASSIUM mmol/L 3.3* 3.8 CHLORIDE mmol/L 106 107 CO2 mmol/L 26 20* BUN mg/dL 12 10 CREATININE mg/dL 0.91 0.78 CALCIUM mg/dL 8.7 9.0 PROTEIN TOTAL g/dL -- 8.3* BILIRUBIN TOTAL mg/dL -- 0.4 ALK PHOS U/L -- 54 ALT U/L -- 9 AST U/L -- 14 GLUCOSE mg/dL 103* 138* Results from last 7 days Lab Units 04/16/24 1124 BILIRUBIN TOTAL mg/dL 0.4 I have reviewed all medications, laboratory results, and imaging pertinent for today's encounter. Cosigned by Vito Christianson DO at 04/17/2024 2:43 PM EST Associated attestation - Vito Christianson DO - 04/17/2024 2:43 PM EST I have seen and evaluated the patient, reviewed the labs and imaging, and discussed the patient with the multidisciplinary team. I have edited the note and/ or placed an addendum below. I agree with assessment and plan as documented. +flatus, + ambulation Main complaint is irritation from NG tube. IVF, NPO, throat spray for comfort Pharmacy Medication History Review Lola Higginbotham is a 33 y.o. female admitted for No Principal Problem: There is no principal problem currently on the Problem List. Please update the Problem List and refresh.. Pharmacy reviewed the patient's [id number] medications and allergies for accuracy. Medications ADDED: None Medications CHANGED: None Medications REMOVED: Cholecalciferol ( Vitamin D-3) Ergocalciferol ( Vitamin D-2) Polyethylene glycol- electrolytes The list below reflects the updated [employer] TECHNICIAN list. Prior to Admission Medications Prescriptions Last Dose Informant Synthroid 150 mcg tablet 04/16/2024 Self Sig: Take 1 tablet (150 mcg) by mouth early in the morning.. Take on an empty stomach at the same time each day, either 30 to 60 minutes prior to breakfast adalimumab (Humira,CF, Pen) 40 mg/0.4 mL pen injector kit pen-injector Past Week Self Sig: INJECT 40MG (1 PEN) UNDER THE SKIN ONCE WEEKLY DIRECTED. azaTHIOprine (Imuran) 50 mg tablet Past Week Self Sig: Take 1 tablet (50 mg) by mouth every other day. alternating 1 tablet every other day azaTHIOprine (Imuran) 75 mg tablet Past Week Self Sig: Take 1 tablet (75 mg) by mouth every other day. blood pressure monitor kit Self Si Units once daily. fluticasone (Flonase) 50 mcg/actuation nasal spray As Needed Self Sig: Administer into affected nostril(s) if needed. Facility-Administered Medications: None The list below reflects the updated allergy list. Please review each documented allergy for additional clarification and justification. Allergies Reviewed by Jagdish Madsen on 04/16/2024 No Known Allergies Patient accepts M2B at discharge. Sources: Pharmacy dispense history Patient interview Moderate historian Chart Review Care Everywhere Additional Comments: None JAGDISH MADSEN Medicine Worker 04/16/24 Secure Chat preferred If no response call [phone] or Vocera Med Rec Cosigned by Chuck Franklin PharmD at 04/16/2024 2:53 PM EST documented in this encounter [facility] Work Phone: 04-18-2024 Plan of care note The patient's goals for the shift include pt discomfort will improve throughout shift The clinical goals for the shift include pt will remain comfortable throughout shift Problem: Pain - Adult Goal: Verbalizes/displays adequate comfort level or baseline comfort level Outcome: Progressing Problem: Safety - Adult Goal: Free from fall injury Outcome: Progressing Problem: Skin Goal: Participates in plan/prevention/treatment measures Outcome: Progressing Problem: Fall/Injury Goal: Be free from injury by end of the shift Outcome: Progressing [facility] Work Phone: 04-17-2024 Plan of care note The patient's goals for the shift include get better The clinical goals for the shift include Patient will have adequate pain control throughout shift. Problem: Pain - Adult Goal: Verbalizes/displays adequate comfort level or baseline comfort level Outcome: Progressing Problem: Pain Goal: Takes deep breaths with improved pain control throughout the shift Outcome: Progressing Goal: Turns in bed with improved pain control throughout the shift Outcome: Progressing Goal: Walks with improved pain control throughout the shift Outcome: Progressing Goal: Performs ADL's with improved pain control throughout shift Outcome: Progressing [facility] 04-17-2024 Plan of care note The patient's goals for the shift include get better The clinical goals for the shift include patient will be HDS by end of shift Problem: Pain - Adult Goal: Verbalizes/displays adequate comfort level or baseline comfort level Outcome: Progressing Problem: Safety - Adult Goal: Free from fall injury Outcome: Progressing [facility] 04-16-2024 Plan of care note The patient's goals for the shift include get NGT removed The clinical goals for the shift include Patient will remain safe and free from injury throughout shift Problem: Pain - Adult Goal: Verbalizes/displays adequate comfort level or baseline comfort level Outcome: Progressing Problem: Safety - Adult Goal: Free from fall injury Outcome: Progressing Problem: Discharge Planning Goal: Discharge to home or other facility with appropriate resources Outcome: Progressing Problem: Chronic Conditions and Co-morbidities Goal: Patient's chronic conditions and co-morbidity symptoms are monitored and maintained or improved Outcome: Progressing Problem: Skin Goal: Decreased wound size/increased tissue granulation at next dressing change Outcome: Progressing Goal: Participates in plan/prevention/treatment measures Outcome: Progressing Goal: Prevent/manage excess moisture Outcome: Progressing Goal: Prevent/minimize sheer/friction injuries Outcome: Progressing Goal: Promote/optimize nutrition Outcome: Progressing Goal: Promote skin healing Outcome: Progressing Problem: Fall/Injury Goal: Not fall by end of shift Outcome: Progressing Goal: Be free from injury by end of the shift Outcome: Progressing Goal: Verbalize understanding of personal risk factors for fall in the hospital Outcome: Progressing Goal: Verbalize understanding of risk factor reduction measures to prevent injury from fall in the home Outcome: Progressing Goal: Use assistive devices by end of the shift Outcome: Progressing Goal: Pace activities to prevent fatigue by end of the shift Outcome: Progressing Problem: Pain Goal: Takes deep breaths with improved pain control throughout the shift Outcome: Progressing Goal: Turns in bed with improved pain control throughout the shift Outcome: Progressing Goal: Walks with improved pain control throughout the shift Outcome: Progressing Goal: Performs ADL's with improved pain control throughout shift Outcome: Progressing Goal: Participates in PT with improved pain control throughout the shift Outcome: Progressing Goal: Free from opioid side effects throughout the shift Outcome: Progressing Goal: Free from acute confusion related to pain meds throughout the shift Outcome: Progressing [facility] 04-16-2024 Nurse Note 1510 Dilaudid was given to the patient in the E.D before arriving to LT9, medication was not signed off by ED nurse. [facility] 04-16-2024 Nurse Note 1510 Dilaudid was given to the patient in the E.D before arriving to LT9, medication was not signed off by ED nurse. documented in this encounter [facility] Work Phone: 04-16-2024 Plan of care note Problem: Pain - Adult Goal: Verbalizes/displays adequate comfort level or baseline comfort level Outcome: Progressing Problem: Safety - Adult Goal: Free from fall injury Outcome: Progressing Problem: Discharge Planning Goal: Discharge to home or other facility with appropriate resources Outcome: Progressing Problem: Chronic Conditions and Co-morbidities Goal: Patient's chronic conditions and co-morbidity symptoms are monitored and maintained or improved Outcome: Progressing Problem: Skin Goal: Decreased wound size/increased tissue granulation at next dressing change Outcome: Progressing Goal: Participates in plan/prevention/treatment measures Outcome: Progressing Goal: Prevent/manage excess moisture Outcome: Progressing Goal: Prevent/minimize sheer/friction injuries Outcome: Progressing Flowsheets (Taken 04/16/2024 1619) Prevent/minimize sheer/friction injuries: HOB 30 degrees or less Goal: Promote/optimize nutrition Outcome: Progressing Goal: Promote skin healing Outcome: Progressing Problem: Fall/Injury Goal: Not fall by end of shift Outcome: Progressing Goal: Be free from injury by end of the shift Outcome: Progressing Goal: Verbalize understanding of personal risk factors for fall in the hospital Outcome: Progressing Goal: Verbalize understanding of risk factor reduction measures to prevent injury from fall in the home Outcome: Progressing Goal: Use assistive devices by end of the shift Outcome: Progressing Goal: Pace activities to prevent fatigue by end of the shift Outcome: Progressing Problem: Pain Goal: Takes deep breaths with improved pain control throughout the shift Outcome: Progressing Goal: Turns in bed with improved pain control throughout the shift Outcome: Progressing Goal: Walks with improved pain control throughout the shift Outcome: Progressing Goal: Performs ADL's with improved pain control throughout shift Outcome: Progressing Goal: Participates in PT with improved pain control throughout the shift Outcome: Progressing Goal: Free from opioid side effects throughout the shift Outcome: Progressing Goal: Free from acute confusion related to pain meds throughout the shift Outcome: Progressing The patient's goals for the shift include help when needed The clinical goals for the shift include Patient will remain safe and free from injury throughout shift [facility] Work Phone: 04-16-2024 History and physical note [facility] ACUTE CARE SURGERY - HISTORY AND PHYSICAL / CONSULT Patient Name: Lola Higginbotham Admit Date: [id number] : 1990 AGE: 33 y.o. GENDER: female TODAY'S ASSESSMENT AND PLAN OF CARE: Lola Higginbohtam is a 33 y.o. female with a past medical history Crohn's Disease (on Humira), hypothyroidism 2/2 thyroidectomy, remote DVT (2016, not on AC), and multiple abdominal surgeries who presented to [place] with 2 days of abdominal pain, nausea, emesis, and loss of appetite CT at OSH showed concerns for SBO. She was transferred to [facility] for surgical evaluation of SBO. Based on clinical history and presentation, high suspicion that patient has a distal small bowel obstruction 2/2 strictures from prior abdominal surgeries vs Crohn's. She remains hemodynamically stable. Labs notable for leukocytosis 12.8 (9.2 at OSH), likely due to dehydration. NG tube from OSH exchanged for 18 Fr NG tube in ED. Plan: - admit to [facility] - NPO, mIVF - 1L LR bolus now - NG tube to LIWS - serial abdominal exams - IV PPI Patient discussed with Dr. Vicente Franklin MD General Surgery Resident PGY-2 [facility] [id number] CHIEF COMPLAINT/REASON FOR CONSULT: Small bowel obstruction Lola Higginbotham is a 33 y.o. female with a past medical history Crohn's Disease (on Humira), hypothyroidism 2/2 thyroidectomy, remote DVT/PE (2015, not on AC), and multiple abdominal surgeries who presented to [place] with 2 days of abdominal pain, nausea, emesis, and loss of appetite CT at OSH showed concerns for SBO. She was transferred to [facility] for surgical evaluation of SBO. Patient stated that she had x1 small watery bowel movement at OSH this morning, prior to that she does not remember. She is not passing flatus. She endorses significant nausea, emesis, chills. Denies fevers or abdominal pain currently. She has had similar abdominal pain in the past. She has not had a recent Crohn's flare. She follows up with rn clinical and sees him regularly. Denies hematochezia, hematemesis, diarrhea, dysuria, chest pain or shortness of breath. PAST MEDICAL HISTORY: PMH: - Crohn's Disease - Hypothyroidism 2/2 thyroidectomy for toxic multinodular goiter - Adrenal insufficiency (previously on chronic steroids) - DVT/PE (2015) - Iron deficiency anemia PSH: - section (2019 and 2021) - Cholecystectomy (2018) - Appendectomy, questionable ileocecectomy (2010) - Thyroidectomy (2018) FH: Family History Problem Relation Name Age of Onset Diabetes Mother Diabetes Father Diabetes type II Father Thrombosis Father SOCIAL HISTORY: Smoking: none Alcohol: none Drug use: none MEDICATIONS: Prior to Admission medications Medication Sig Start Date End Date Taking? Authorizing Provider adalimumab (Humira,CF, Pen) 40 mg/0.4 mL pen injector kit pen-injector INJECT 40MG (1 PEN) UNDER THE SKIN ONCE WEEKLY DIRECTED. 04/28/23 05/11/24 Scarlett Martin APRN-PAINT PREP TECHNICIAN azaTHIOprine (Imuran) 50 mg tablet Take 1 tablet (50 mg) by mouth every other day. alternating 1 tablet every other day 03/02/24 03/02/25 Binu Baldwin APRN-LORI azaTHIOprine (Imuran) 75 mg tablet Take 1 tablet (75 mg) by mouth every other day. 03/02/24 03/02/25 JOE Christianson blood pressure monitor kit 1 Units once daily. 08/25/23 Matthew Orozco, cholecalciferol (Vitamin D-3) 50 mcg (2,000 unit) capsule Take 1 capsule (50 mcg) by mouth once daily. 10/09/21 Historical Provider, ergocalciferol (Vitamin D-2) 1.25 MG (26866 UT) capsule Take by mouth. Patient not taking: Reported on 03/04/2024 06/29/18 Historical Provider, fluticasone (Flonase) 50 mcg/actuation nasal spray Administer into affected nostril(s) if needed. 04/12/19 Historical Provider, polyethylene glycol-electrolytes 420 gram solution Take by mouth if needed. take as directed Patient not taking: Reported on 03/04/2024 04/29/22 Historical Provider, Synthroid 150 mcg tablet Take 1 tablet (150 mcg) by mouth early in the morning.. Take on an empty stomach at the same time each day, either 30 to 60 minutes prior to breakfast 03/07/24 03/07/25 Ghulam Acevedo MD ALLERGIES: No Known Allergies Review of Systems ROS: 12-point review of system performed and is negative except as stated in HPI. Physical Exam General: awake, alert, no acute distress HEENT: atraumatic, normocephalic CV: mild sinus tachycardia, normotensive Pulm: non-labored breathing on room air GI: abdomen soft, non-distended, non-tender to palpation, well-healed prior pfannenstiel scar. NG with gastric fluid output, non-bilious. : deferred Skin: warm, dry Extremities: no peripheral edema Psych: appropriate mood and affect IMAGING SUMMARY: (summary of findings, not a copy of dictation) CT Abd/Pel 04/15 (OSH) - high-grade SBO with transition point ileocolic junction - no bowel inflammation - s/p cholecystectomy - s/p appendectomy LABS: Results from last 7 days Lab Units 04/16/24 1124 WBC AUTO x10*3/uL 12.8* HEMOGLOBIN g/dL 13.0 HEMATOCRIT % 38.5 PLATELETS AUTO x10*3/uL 337 NEUTROS PCT AUTO % 91.4 LYMPHS PCT AUTO % 8.0 MONOS PCT AUTO % 0.2 EOS PCT AUTO % 0.1 Results from last 7 days Lab Units 04/16/24 1124 APTT seconds 31 INR 1.2* Results from last 7 days Lab Units 04/16/24 1124 SODIUM mmol/L 139 POTASSIUM mmol/L 3.8 CHLORIDE mmol/L 107 CO2 mmol/L 20* BUN mg/dL 10 CREATININE mg/dL 0.78 CALCIUM mg/dL 9.0 PROTEIN TOTAL g/dL 8.3* BILIRUBIN TOTAL mg/dL 0.4 ALK PHOS U/L 54 ALT U/L 9 AST U/L 14 GLUCOSE mg/dL 138* Results from last 7 days Lab Units 04/16/24 1124 BILIRUBIN TOTAL mg/dL 0.4 I have reviewed all laboratory and imaging results ordered/pertinent for this encounter. Cosigned by Vito Christianson DO at 04/17/2024 3:01 PM EST Associated attestation - Vito Christianson DO - 04/17/2024 3:01 PM EST I have seen and evaluated the patient, reviewed the labs and imaging, and discussed the patient with the multidisciplinary team. I have edited the note and/ or placed an addendum below. I agree with assessment and plan as documented. NPO, IVF, Admit, NG tube [facility] Work Phone: 04-16-2024 History and physical note [facility] ACUTE CARE SURGERY - HISTORY AND PHYSICAL / CONSULT Patient Name: Lola Higginbotham Admit Date: [id number] : 1990 AGE: 33 y.o. GENDER: female TODAY'S ASSESSMENT AND PLAN OF CARE: Lola Higginbotham is a 33 y.o. female with a past medical history Crohn's Disease (on Humira), hypothyroidism 2/2 thyroidectomy, remote DVT (2015, not on AC), and multiple abdominal surgeries who presented to [place] with 2 days of abdominal pain, nausea, emesis, and loss of appetite CT at OSH showed concerns for SBO. She was transferred to [facility] for surgical evaluation of SBO. Based on clinical history and presentation, high suspicion that patient has a distal small bowel obstruction 2/2 strictures from prior abdominal surgeries vs Crohn's. She remains hemodynamically stable. Labs notable for leukocytosis 12.8 (9.2 at OSH), likely due to dehydration. NG tube from OSH exchanged for 18 Fr NG tube in ED. Plan: - admit to ACS - NPO, mIVF - 1L LR bolus now - NG tube to LIWS - serial abdominal exams - IV PPI Patient discussed with Dr. Vicente Franklin MD General Surgery Resident PGY-2 [facility] [id number] CHIEF COMPLAINT/REASON FOR CONSULT: Small bowel obstruction Lola Higginbotham is a 33 y.o. female with a past medical history Crohn's Disease (on Humira), hypothyroidism 2/2 thyroidectomy, remote DVT/PE (2015, not on AC), and multiple abdominal surgeries who presented to [place] with 2 days of abdominal pain, nausea, emesis, and loss of appetite CT at OSH showed concerns for SBO. She was transferred to [facility] for surgical evaluation of SBO. Patient stated that she had x1 small watery bowel movement at OSH this morning, prior to that she does not remember. She is not passing flatus. She endorses significant nausea, emesis, chills. Denies fevers or abdominal pain currently. She has had similar abdominal pain in the past. She has not had a recent Crohn's flare. She follows up with rn clinical and sees him regularly. Denies hematochezia, hematemesis, diarrhea, dysuria, chest pain or shortness of breath. PAST MEDICAL HISTORY: PMH: - Crohn's Disease - Hypothyroidism 2/2 thyroidectomy for toxic multinodular goiter - Adrenal insufficiency (previously on chronic steroids) - DVT/PE (2015) - Iron deficiency anemia PSH: - section (2019 and 2021) - Cholecystectomy (2018) - Appendectomy, questionable ileocecectomy (2010) - Thyroidectomy (2018) FH: Family History Problem Relation Name Age of Onset Diabetes Mother Diabetes Father Diabetes type II Father Thrombosis Father SOCIAL HISTORY: Smoking: none Alcohol: none Drug use: none MEDICATIONS: Prior to Admission medications Medication Sig Start Date End Date Taking? Authorizing Provider adalimumab (Humira,CF, Pen) 40 mg/0.4 mL pen injector kit pen-injector INJECT 40MG (1 PEN) UNDER THE SKIN ONCE WEEKLY DIRECTED. 04/28/23 05/11/24 Scarlett Martin APRN-LORI azaTHIOprine (Imuran) 50 mg tablet Take 1 tablet (50 mg) by mouth every other day. alternating 1 tablet every other day 03/02/24 03/02/25 JOE Christianson azaTHIOprine (Imuran) 75 mg tablet Take 1 tablet (75 mg) by mouth every other day. 03/02/24 03/02/25 JOE Christianson blood pressure monitor kit 1 Units once daily. 08/25/23 Matthew Orozco, cholecalciferol (Vitamin D-3) 50 mcg (2,000 unit) capsule Take 1 capsule (50 mcg) by mouth once daily. 10/09/21 Historical Provider, ergocalciferol (Vitamin D-2) 1.25 MG (92770 UT) capsule Take by mouth. Patient not taking: Reported on 03/04/2024 06/29/18 Historical Provider, fluticasone (Flonase) 50 mcg/actuation nasal spray Administer into affected nostril(s) if needed. 04/12/19 Historical Provider, polyethylene glycol-electrolytes 420 gram solution Take by mouth if needed. take as directed Patient not taking: Reported on 03/04/2024 04/29/22 Historical Provider, Synthroid 150 mcg tablet Take 1 tablet (150 mcg) by mouth early in the morning.. Take on an empty stomach at the same time each day, either 30 to 60 minutes prior to breakfast 03/07/24 03/07/25 Ghulam Acevedo MD ALLERGIES: No Known Allergies Review of Systems ROS: 12-point review of system performed and is negative except as stated in HPI. Physical Exam General: awake, alert, no acute distress HEENT: atraumatic, normocephalic CV: mild sinus tachycardia, normotensive Pulm: non-labored breathing on room air GI: abdomen soft, non-distended, non-tender to palpation, well-healed prior pfannenstiel scar. NG with gastric fluid output, non-bilious. : deferred Skin: warm, dry Extremities: no peripheral edema Psych: appropriate mood and affect IMAGING SUMMARY: (summary of findings, not a copy of dictation) CT Abd/Pel 04/15 (OSH) - high-grade SBO with transition point ileocolic junction - no bowel inflammation - s/p cholecystectomy - s/p appendectomy LABS: Results from last 7 days Lab Units 04/16/24 1124 WBC AUTO x10*3/uL 12.8* HEMOGLOBIN g/dL 13.0 HEMATOCRIT % 38.5 PLATELETS AUTO x10*3/uL 337 NEUTROS PCT AUTO % 91.4 LYMPHS PCT AUTO % 8.0 MONOS PCT AUTO % 0.2 EOS PCT AUTO % 0.1 Results from last 7 days Lab Units 04/16/24 1124 APTT seconds 31 INR 1.2* Results from last 7 days Lab Units 04/16/24 1124 SODIUM mmol/L 139 POTASSIUM mmol/L 3.8 CHLORIDE mmol/L 107 CO2 mmol/L 20* BUN mg/dL 10 CREATININE mg/dL 0.78 CALCIUM mg/dL 9.0 PROTEIN TOTAL g/dL 8.3* BILIRUBIN TOTAL mg/dL 0.4 ALK PHOS U/L 54 ALT U/L 9 AST U/L 14 GLUCOSE mg/dL 138* Results from last 7 days Lab Units 04/16/24 1124 BILIRUBIN TOTAL mg/dL 0.4 I have reviewed all laboratory and imaging results ordered/pertinent for this encounter. Cosigned by Vito Christianson DO at 04/17/2024 3:01 PM EST Associated attestation - Vito Christianson DO - 04/17/2024 3:01 PM EST I have seen and evaluated the patient, reviewed the labs and imaging, and discussed the patient with the multidisciplinary team. I have edited the note and/ or placed an addendum below. I agree with assessment and plan as documented. NPO, IVF, Admit, NG tube documented in this encounter [facility] Work Phone: 04-16-2024 Emergency department Note Pt transferred from [place]. Pt was c/o abd pain for 2 days. Pt was diagnosed with a SBO. Pt endorses N/V, loss of appetite/ Pt has a hx of crohn's disease. documented in this encounter [facility] Work Phone: 04-16-2024 Emergency department Triage note Pt transferred from [place]. Pt was c/o abd pain for 2 days. Pt was diagnosed with a SBO. Pt endorses N/V, loss of appetite/ Pt has a hx of crohn's disease. [facility] Work Phone: 03-02-2024 History of Present illness Narrative Subjective Patient ID: Lola Higginbotham is a 33 y.o. female who presents for Crohn's Disease (Patient presents for crohn's follow up. Humira every 7 days. Last colon 05/[address] Browning. Azothiaprine 75 and 50 mg. ). [facility] 09/01/23 DR. Orozco: 33-year-old female diagnosed with [...] score 0 , repeat in 3 years I follow-up 03/02/2024: Patient following up for Crohn's [...] once daily. ergocalciferol (Vitamin D-2) 1.25 MG (00214 UT) capsule Take by mouth. (Patient not [...] 6 months, sooner if needed. Binu Baldwin CNP documented in this encounter [facility] Work Phone: 02-17-2024 History of Present illness Narrative Patient ID: Lola Higginbotham is a 33 y.o. female. Interval History: Ms. Higginbotham is a 27yo female with complicated Crohn's disease since 2011 , was hospitalized at [facility] in 07/2015 (1st since Dx) with [...] or edema Continues to follow with her eeg tech Denies changes of her appetite or unintentional weight loss She does not smoke or drink alcohol She is seeing her primary care doctor in August, who she plans to discuss her elevated diastolic BP with, which has been elevated since about August of 202209/16/2023: Consent: A telephone visit (audio only) between the patient at home and the provider at [facility] was utilized to provide this telehealth service. [...] due next year -She also saw her eeg tech, who she follows for uveitis, who says [...] patient at home and the provider at [facility] was utilized to provide this telehealth service. [...] 78 02/16/2024 Lab Results Component Value Date [id number] 12/14/2023 Lab Results Component Value Date [...] and TIBC; Future - Vitamin B12; Future KikoJOE Camacho documented in this encounter [facility] Work Phone: 12-30-2023 History of Present illness Narrative Subjective Lola Higginbotham is a 33 y.o. female with past medical history of Crohn's disease on Humira & azathioprine, Graves' disease and compressive multinodular goiter s/p total thyroidectomy (2018), pathology showed MNG, iron deficiency anemia, presenting to endocrinology clinic for follow-up visit. Patient reports that she lives in [place] and has been following up with her PCP for hypothyroidism recently as she was not able to schedule an appointment here with endocrinology clinic. She reports that she was out of her thyroid pills for approximately 1 month in August. Got labs done in September and her levothyroxine dose was decreased 112 mcg/day by her PCP in September 2023. She got repeat labs in November 2023 and her levothyroxine dose was bumped up to 125 mcg/day after that. Patient reports compliance with her levothyroxine medication. She takes it at 5:30 AM in the morning and has her breakfast around 11 AM. She is not taking any other medications with levothyroxine. Review of Systems Fatigue: Feels fatigued all the time, works at night, does not get a lot of sleep Energy: low in energy, almost every day Sleep: 4-5 hrs a day, no night time awakenings Appetite: good Change in weight: no Vision changes: none, no tearing, gritty sensation or itching Hoarseness:no Trouble swallowing: no No SOB, chest pain, palpitations No urinary or bowel complaints Heat/cold intolerance : no, mostly cold No night sweats, no loss in libido No Muscle cramps or Muscle weakness: No Skin changes Exercises with stationary bike for 30 minutes 2-4 times/week No ETOH, tobacco or illicit drug use Menstrual history: regular, LMP 12/13/23, no excessive bleeding or pain, not using any contraceptives Past Medical History: Diagnosis Date Acute atopic [...] of nasal turbinates 02/08/2019 Nasal turbinate hypertrophy senior living (current) use of systemic steroids 07/09/2017 On 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 azaTHIOprine (Imuran) 50 mg tablet 1.5 tablets, oral, Daily, alternating 1 tablet every other day 75mg 4xweekly 50mg 3xweekly azaTHIOprine (Imuran) 75 mg tablet oral, Daily blood pressure monitor kit 1 Units, miscellaneous, Daily cholecalciferol (Vitamin D-3) 50 mcg (2,000 unit) capsule 1 capsule, oral, Daily ergocalciferol (Vitamin D-2) 1.25 MG (33347 UT) capsule oral fluticasone (Flonase) 50 mcg/actuation nasal spray nasal, As needed levothyroxine (SYNTHROID, LEVOXYL) 137 mcg, oral, Daily polyethylene glycol-electrolytes 420 gram solution oral, As needed, take as directed
Objective BP (!) 135/92 (BP Location: Right arm, Patient Position: Sitting, BP Cuff Size: Large adult) Pulse 87 Ht 1.6 m (5' 3 ) Wt 97.5 kg (215 lb) BMI 38.09 kg/m Physical exam: Constitutional: NAD, AOx3. Skin/Hair: Warm, dry skin. HEENT: EOMI, mild ptosis in right eye noted, sclera anicteric, No Chemosis, oral mucosa moist Chvostek sign + Neck: Soft, supple. Non tender, full ROM, no lymphadenopathy, no thyroid tissue palpated Cardiovascular: Normal s1s2, RRR, no rub or murmurs. Respiratory: CTAB, GBAE, no wheezes Abdomen: Soft, non-tender to palpation. Extremities: Preserved peripheral pulses, No peripheral edema, No tremors Neuro: Moving all extremities spontaneously. CN's grossly intact. No balance or gait disturbances. DTRs: delay in relaxation phase noted on upper extremity DTR Labs (12/11/23) Lab Results Component Value Date TSH 11.17 (H) 12/11/2023 FREET4 0.81 12/11/2023 Latest Reference Range & Units 12/14/23 15:23 GLUCOSE 74 - 99 mg/dL 98 SODIUM 136 - 145 mmol/L 139 POTASSIUM 3.5 - 5.3 mmol/L 3.6 CHLORIDE 98 - 107 mmol/L 105 Bicarbonate 21 - 32 mmol/L 26 Anion Gap 10 - 20 mmol/L 12 Blood Urea Nitrogen 6 - 23 mg/dL 9 Creatinine 0.50 - 1.05 mg/dL 0.88 EGFR >60 mL/min/1.73m*2 89 Calcium 8.6 - 10.3 mg/dL 9.0 Albumin 3.4 - 5.0 g/dL 4.0 Alkaline Phosphatase 33 - 110 U/L 46 ALT 7 - 45 U/L 10 AST 9 - 39 U/L 13 Bilirubin Total 0.0 - 1.2 mg/dL 0.3 Assessment/Plan Diagnoses and all orders for this visit: Hypothyroidism, postsurgical - TSH; Future - T4, free; Future - levothyroxine (Synthroid, Levoxyl) 137 mcg tablet; Take 1 tablet (137 mcg) by mouth early in the morning.. Lola Higginbotham is a 33 y.o. female with past medical history of Crohn's disease on Humira and azathioprine, Graves' disease and compressive multinodular goiter s/p total thyroidectomy (2019), pathology showed MNG, presenting to endocrinology clinic for follow-up of hypothyroidism. Patient was following in past during her . She has 2 kids and 3 and 2-year-old. She reports that her younger kid has pediatric glaucoma since he was 1 year of age. Patient currently reports feeling fatigued all the time and assumes that it is likely due to poor sleep but denies change in appetite or weight. She was following with her PCP for levothyroxine refills. Her dose was changed 112 mcg/day in September but she is taking 125 mcg/day since November 2023. She reports compliance with her medication and is taking it as directed in the morning. #Postsurgical hypothyroidism This diagnosis was discussed and reviewed with the patient including the advantages of drug therapy. Increase dose of levothyroxine to 137 mcg/day. New refills provided. Patient reports that she has leftover tablets of 125 mcg. She was instructed to take 125 mcg 1 tablet daily (Mon - Fri) and to take 1.5 tablet over the weekend until she finishes up with her old pills. Repeat TSH, fT4 in 8 weeks, around mid February Will follow up lab results in: 8 weeks and make changes to medication as necessary. #Vit D deficiency Patient taking OTC vit D supplements Advised to continue taking Vit D 5000 units daily The patient was seen and discussed with attending Dr. Leoncio Sparrow. Ghulam Acevedo MD Endocrinology fellow Associated attestation - Leoncio Sparrow MD - 12/30/2023 2:38 PM EDT I saw and evaluated the patient. I personally obtained the munoz and critical portions of the history and physical exam or was physically present for munoz and critical portions performed by the resident/fellow. I reviewed the resident/fellow's documentation and discussed the patient with the resident/fellow. I agree with the resident/fellow's medical decision making as documented in the note. documented in this encounter [facility] Work Phone: 09-16-2023 History of Present illness Narrative Patient ID: Lola Higginbotham is a 33 y.o. female. Interval History: Ms. Higginbotham is a 27yo female with complicated Crohn's disease since 2011 , was hospitalized at [facility] in 07/2015 (1st since Dx) with [...] or edema Continues to follow with her eeg tech Denies changes of her appetite or unintentional weight loss She does not smoke or drink alcohol She is seeing her primary care doctor in August, who she plans to discuss her elevated diastolic BP with, which has been elevated since about August of 202209/16/2023: Consent: A telephone visit (audio only) between the patient at home and the provider at [facility] was utilized to provide this telehealth service. [...] due next year -She also saw her eeg tech, who she follows for uveitis, who says [...] 94 09/15/2023 Lab Results Component Value Date [id number] 07/14/2023 Lab Results Component Value Date [...] - Vitamin B12; Future - Ferritin; Future Kiko Aburto APRN-PAINT PREP TECHNICIAN documented in this encounter [facility] Work Phone: 09-16-2023 Instructions JOE Krishna - 09/16/2023 8:00 AM EDT Return in 3 months with labs a few days prior. Please call in the meantime with questions, concerns or symptom changes. 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 ergocalciferol (Vitamin D-2) 1.25 MG (33450 UT) capsule Take by mouth. fluticasone (Flonase) [...] and munoz findings as documented by the Data Processing Operator and edited as appropriate. Signature: Padma Orozco MD Date: 08/31/2023 Time: 2:08 PM documented in this encounter [facility] Work Phone: 07-15-2023 History of Present illness Narrative Patient ID: Lola Higginbotham is a 33 y.o. female. Interval History: Ms. Higginbotham is a 27yo female with complicated Crohn's disease since 2011 , was hospitalized at [facility] in 07/2015 (1st since Dx) with [...] or edema Continues to follow with her eeg tech Denies changes of her appetite or unintentional [...] 119 07/14/2023 Lab Results Component Value Date [id number] 07/14/2023 Lab Results Component Value Date [...] Clinic Appointment Request Follow Up; [facility]; [facility] - Clinic Appointment Request KIKO ABURTO; Future - CBC and Auto Differential; Future - Comprehensive metabolic panel; Future - Iron and TIBC; Future - Ferritin; Future JOE Krishna documented in this encounter [facility] Work Phone: 04-22-2023 History of Present illness [...] Epistaxis (07/09/2017), Hypertrophy of nasal turbinates (02/08/2019), 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 01/06/23 01/06/24 Scarlett Martin [employer]-PAINT PREP TECHNICIAN azaTHIOprine (Imuran) 50 mg tablet Take 1.5 [...] Historical Provider, ergocalciferol (Vitamin D-2) 1.25 MG (97364 UT) capsule Take by mouth. 06/29/18 Historical [...] was also advised to avoid intranasal excoriations. Parth Hirsch MD Facial Plastic & Reconstructive Surgery Otolaryngology - Head & Neck Surgery documented in this encounter [facility] Work Phone: 03-13-2023 History of Present illness Narrative Patient ID: Lola Higginbotham is a 32 y.o. female. Interval History: Ms. Higginbotham is a 27yo female with complicated Crohn's disease since 2011 , was hospitalized at [facility] in 07/2015 (1st since Dx) with [...] and azathioprine. -States that she saw her eeg tech on 03/04 due to history of Uveitis [...] Component Value Date TSH 0.02 (L) 11/26/2021 [id number] 06/28/2018 [id number] <10 05/05/2017 Lab Results Component Value Date IRON 56 01/07/2023 TIBC 302 01/07/2023 FERRITIN 24 03/10/2023 Lab Results Component Value Date [id number] 11/26/2021 Lab Results Component Value Date [...] Clinic Appointment Request Follow Up; [facility]; [facility] Vitamin B12 Iron and TIBC Ferritin CBC and Auto Differential Mariia Bernal PA-C documented in this encounter [facility] Work Phone: 03-13-2023 Instructions Mariia Bernal PA-C - 03/13/2023 9:30 AM EDT Your iron levels are low. We will schedule you for another course of IV Venofer infusion. I will see you back in 4 months to follow up with labs done a few days prior to the next visit. documented in this encounter [facility] Work Phone: 02-17-2023 History of Present illness [...] for history of uveitis. Follows with her eeg tech regularly. She denies oral sores, anal sores, [...] to 2 months documented in this encounter [facility] Work Phone: 04-17-2022 History of Present illness [...] pain/visual disturbances.weight stable appetite nlfeels well overall -[facility] Work Phone: 02-17-2022 History of Present illness [...] vomiting 'coffee grounds' material.Symptom History:Modifying Factors:Associated Symptoms: [facility] Work Phone: 02-05-2022 History of Present illness [...] vomiting 'coffee grounds' material.Symptom History:Modifying Factors:Associated Symptoms: [facility] Work Phone: 10-02-2021 Note DISCHARGE SUMMARY DISCHARGE [...] to continue as instructed status post section. [facility] Signed and Approved by: DR MENA CHERY . 11/12/2021 22:12:00 [facility] 10-01-2021 History of Present illness Narrative 31 yo female with history of Crohn's disease involving the small bowel and colon. S/P ileocolic resection in 2016. She delivered her baby girl (Serenity) 8 [...] vomiting 'coffee grounds' material.Symptom History:Modifying Factors:Associated Symptoms: -[facility] Work Phone: 01-21-2019 History of Present illness Narrative Patient is a 31 year old female presenting today for a follow-up of nasal congestion. The patient has been compliant in her ointment usage, and notes no new or worsening symptoms. She no longer works for [employer] but is still at her original job that she has had for the past three years. [id number] [id number] Work Phone: 06-28-2018 History of Present illness [...] daily from 125 mcg once daily by [employer]. Overall she reports feeling well and so far no complications of . She feels excited of having a baby girl. She is following [employer] high risk in [place] due to underlying hx of DVT.Regimen:- LT4 175 mcg PO QAM increased about 1 month ago. Taking as indicated- Vitamin D 69266 units weeklySx of hyper- or hypothyroidism:Compressive sx: noneEnergy: goodSleep: adequateMoods : stableEye symptoms: no teary eye or painDysphagia: noneNew neck lump: noneDyspnea: occasional at high exertionCough: nonePalpitations: noneTremor: noneTemperature:none heat/cold intoleranceMuscle cramps: noneWeight change: stableChange in bowel movements: nonePatient is taking levothyroxine? yesSteroids: noneBlood thinners: yesROS: 10 point review of systems was otherwise negative except per the HPI.LAYER OUT PLATE GLASS hx-G2, P1, A0. Las : 03/2020-LMP: November,-Patient planning for .-Unsure if wants to do control after pregnancyROS: 10 point negative, except for detailed in HPI ZU-Tsilrmdy-OftckvLuis M Tabor Work Phone: Evaluation note Diagnosis Iron deficiency anemia, unspecified iron deficiency anemia type- Primary Iron malabsorption Other specified intestinal malabsorption Iron deficiency anemia due to chronic blood loss Iron deficiency anemia secondary to blood loss (chronic) documented in this encounter [facility] Work Phone: Evaluation note* Diagnosis Crohn's disease of both small and large intestine without complication (CMS/HCC)- Primary documented in this encounter [facility] Work Phone: Evaluation note* Diagnosis Nasal vestibulitis- Primary Other diseases of nasal cavity and sinuses documented in this encounter [facility] Work Phone: Evaluation note* Diagnosis Iron deficiency anemia, unspecified iron deficiency anemia type documented in this encounter [facility] Work Phone: Evaluation note* Diagnosis Crohn's disease of small and large intestines with complication (Multi)- Primary documented in this encounter [facility] Work Phone: [phone] note* Diagnosis Iron deficiency anemia due to chronic blood loss- Primary Iron deficiency anemia secondary to blood loss (chronic) Iron deficiency anemia, unspecified iron deficiency anemia type Iron malabsorption (HHS-HCC) Other specified intestinal malabsorption documented in this encounter [facility] Work Phone: [phone] note* Diagnosis Iron deficiency anemia, unspecified iron deficiency anemia type- Primary Iron malabsorption (HHS-HCC) Other specified intestinal malabsorption documented in this encounter [facility] Work Phone: [phone] note* Diagnosis Crohn's disease of small and large intestines with complication (Multi)- Primary documented in this encounter [facility] Work Phone: [phone] noteNo assessment information available [facility] Work Phone: Evaluation note* Diagnosis SBO (small bowel obstruction) (Multi)- Primary Unspecified intestinal obstruction SBO (small bowel obstruction) (Multi) Unspecified intestinal obstruction documented in this encounter [facility] Work Phone: [phone] note* Diagnosis Hypothyroidism, postsurgical- Primary Postsurgical hypothyroidism documented in this encounter [facility] Work Phone: [phone] note* Diagnosis Crohn's disease of small and large intestines with complication (Multi)- Primary documented in this encounter [facility] Work Phone: [phone] note* Diagnosis Iron deficiency anemia due to chronic blood loss- Primary Iron deficiency anemia secondary to blood loss (chronic) Iron deficiency anemia, unspecified iron deficiency anemia type Iron malabsorption (HHS-HCC) Other specified intestinal malabsorption Crohn's disease of small and large intestines with complication (Multi) documented in this encounter [facility] Work Phone: [phone] note* Diagnosis Crohn's disease of small and large intestines with complication (Multi)- Primary documented in this encounter [facility] Work Phone: [phone] note* Diagnosis Crohn's disease of small and large intestines with complication (Multi) documented in this encounter [facility] Work Phone: Evaluation note* Diagnosis Cervical cancer screening- Primary Screening for malignant neoplasm of the cervix Wellness examination Morbid obesity due to excess calories (Multi) BMI 36.0-36.9,adult documented in this encounter [facility] Work Phone: Evaluation note* Diagnosis Iron deficiency anemia due to chronic blood loss- Primary Iron deficiency anemia secondary to blood loss (chronic) Iron deficiency anemia, unspecified iron deficiency anemia type Iron malabsorption (HHS-HCC) Other specified intestinal malabsorption Crohn's disease of small and large intestines with complication (Multi) documented in this encounter [facility] Work Phone: History of Present illness [id number] y/o female presenting for a follow-up for nasal congestion. Patient states that her nasal symptoms have been stable. She uses saline solution occasionally when she experiences nasal congestion. Denies any ear issues or using Q-tips. OZ-Gjmuulwhlhpdug-Qfnxmnxx [facility] Work Phone: History of Present illness [id number] y/o female presenting for a follow-up for nasal congestion. She has been able to control her nasal symptoms well. Patient performs nasal rinses regularly and uses the Mupirocin nasal ointment whenher nose becomes dry. Otherwise, patient is doing well and denies any new or worsening symptoms.XF-Iutciqepagpjfy-Hsnhoul Voice Work Phone: History of Present illness Qmqzqantn78 y/o female presenting for a follow-up for nasal congestion. She states that her symptoms remain stable and fairly well controlled. Patient uses nasal spray and Mupirocin nasal ointment regularly, will have congestion and dryness if she does not. Otherwise, patient is doing well and denies any new or worsening symptoms. HM-Qorlpybflqxfqq-Efywbymb [facility] 250 Work Phone: History of Present illness NarrativePatient is a 31 year old female, presenting for follow up of nasal congestion. Patient states no new or worsening symptoms. Her congestion has been about the same. There is no associated pain. She iscurrently off on maternity leave. She has not really been using the ointment.XT-Tjynylqssrfzol-Ocoifyrj [facility] 250 Work Phone: History of Present illness NarrativePatient is a 31 year old female presenting today for a follow-up of nasal congestion. She reports using her ointment occasionally and no new or worsening symptoms. UK-Hrwclxdcfqoyec-Nitkpumv 3190 Work Phone: History of Present illness NarrativePatient is a 32 year old female presenting today for a follow-up of nasal congestion and chronic nasal crusting. She is doing well with no complaints and no new or worsening symptoms.VF-Kdojswdffzxaem-Jdpoqvlj [facility] 250 Work Phone: Reason for visit Narrative* Endoscopy (Routine) - Authorized Specialty Diagnoses / Procedures Referred By Payam t Referred To Contact Gastroenterology Diagnoses Crohn's disease of small and large intestines with complication (Multi) Procedures Colonoscopy Diagnostic MO COLONOSCOPY FLX DX W/COLLJ SPEC WHEN PFRMD MO COLONOSCOPY W/BIOPSY SINGLE/MULTIPLE MO COLSC FLX W/RMVL OF TUMOR POLYP LESION SNARE TQ MO COLSC FLX W/REMOVAL LESION [place] [address] [address] [facility] [address] [place] [address] Phone: tel: fax: Referral ID Status Reason Start Date Expiration Date V isits Requested Visits Authorized [id number] Authorized 08/30/2024 08/30/2025 1 1 [facility] Work Phone: Summary Purpose Family History No [...] Advance Directives No February 27, 2017 4:13pm Date Activated Date Inactivated Comments 04/16/2024 5:00 PM 04/16/2024 5:08 PM Question Answer Comments Plan of Care: Code Status Discussion Completed Decision Maker: Patient Date Activated Date Inactivated Comments 04/16/2024 5:00 PM 04/16/2024 5:08 PM Question Answer Comments Plan of Care: Code Status Discussion Completed Decision Maker: Patient Chief Complaint F/U nasal congestionF/U nasal congestionF/U [...] section and content) DATE CREATED AUTHOR 07/22/2018 [facility] DATE CREATED AUTHOR AUTHOR'S ORGANIZ ATION 08/27/2018 [facility] DATE CREATED AUTHOR AUTHOR'S ORGANIZ ATION 04/04/2021 [facility] DATE CREATED AUTHOR AUTHOR'S ORGANIZ ATION 06/24/2021 [facility] DATE CREATED AUTHOR AUTHOR'S ORGANIZ ATION 07/09/2022 [facility] DATE CREATED AUTHOR AUTHOR'S ORGANIZ ATION 12/11/2022 [facility] DATE CREATED AUTHOR AUTHOR'S ORGANIZ ATION 12/11/2022 [facility] DATE CREATED AUTHOR AUTHOR'S ORGANIZ ATION 01/10/2023 [facility] DATE CREATED AUTHOR AUTHOR'S ORGANIZ ATION 04/14/[address] [facility] DATE CREATED AUTHOR AUTHOR'S ORGANIZ ATION 11/20/2024 [facility] DATE CREATED AUTHOR AUTHOR'S ORGANIZ ATION 11/27/2024 [facility] DATE CREATED AUTHOR AUTHOR'S ORGANIZ ATION 12/10/2024 [facility] DATE CREATED AUTHOR AUTHOR'S ORGANIZ ATION 12/10/2024 [facility] DATE CREATED AUTHOR AUTHOR'S ORGANIZ ATION 01/14/2025 [place] Reason for Visit (unrecogniz ed section and content) Reason Comments Follow-up Reason Comments Crohn's Disease Patient presents for crohn's follow up. Humira every 7 days. Last colon 05/[address] Browning. Azothiaprine 75 and 50 mg. Reason Comments Small Bowel Obstruction Specialty Diagnoses / Procedures Referred By Payam godoy Referred To Contact Diagnoses SBO (small bowel obstruction) (Multi) SBO [place] [address] [place] [address] Phone: tel: fax: [facility] [address] [place] [address] Phone: tel: fax: Referral ID Status Reason Start Date Expiration Date Visits Re quested Visits Authorized [id number] 1 1 Reason Comments Hypothyroidism Follow up visit for hypothyroidism. Reason Comments Annual Exam Care Teams (unrecognized sec tion and content) Leaf Tier Relationship Specialty [place] [address] [facility] [address] [place] [address] PCP - General 08/11/16 Mariia Bernal PA-C [address] [place] [address] [address] [place] [address] PCP - [facility] Medicaid PCP 11/15/22 Leaf Tier Relationship Specialty [place] [address] [facility] [address] [place] [address] PCP - General 08/11/16 Mariia Bernal PA-C [id number] [facility] [address] [place] [address] PCP - [employer] Medicaid PCP 11/15/22 Leaf Tier Relationship Specialty Start Date End Date Matthew Orozco [address] [facility] [address] [place] [address] PCP - General 08/11/16 Mariia Bernal PA-C [id number] [facility] [address] [place] [address] PCP - [facility] Medicaid PCP 11/15/22 Leaf Tier Relationship Specialty Start [place] [address] [address] PCP - General 08/11/16 Mariia Bernal PA-C Office Address Unavailable as of 07/04/2023 PCP - [facility] Medicaid PCP 11/15/22 Leaf Tier Relationship Specialty Start Date End Date Matthew Orozco [address] [address] PCP - General 08/11/16 Mariia Bernal PA-C Office Address Unavailable as of 07/04/2023 PCP - [employer] Medicaid PCP 11/15/22 Leaf Tier Relationship Specialty Start Date End [place]DO [address] [address] PCP - General 08/11/16 Mariia Bernal PA-C Office Address Unavailable as of 07/04/2023 PCP - [employer] Medicaid PCP 11/15/22 Mariia Bernal PA-C Office Address Unavailable as of 07/04/2023 PCP - [facility] PCP 05/18/23 Leaf Tier Relationship Specialty Start Date End Date Matthew Orozco [address] [facility] [address] [place] [address] PCP - General 08/11/16 Mariia Bernal PA-C Office Address Unavailable as of 07/04/2023 PCP - [employer] Medicaid PCP 11/15/22 Mariia Bernal PA-C Office Address Unavailable as of 07/04/2023 PCP - [facility] PCP 05/18/23 Leaf Tier Relationship Specialty Start Date End Date Matthew Orozco [address] [facility] [address] [place] [address] PCP - General 08/11/16 Mariia Bernal PA-C Office Address Unavailable as of 07/04/2023 PCP - [employer] Medicaid PCP 11/15/22 Mariia Bernal PA-C Office Address Unavailable as of 07/04/2023 PCP - [facility] PCP 05/18/23 Team Status: Inactive Member Role Status Dates Kendra Garcia MD Attending Provider Active Start: March 31, 2024 End: March 31, 2024 Leaf Tier Relationship Specialty Start [place]rozcoDO [address] [facility] [address] [place] [address] PCP - General 08/11/16 Mariia Bernal PA-C Office Address Unavailable as of 07/04/2023 PCP - [facility] Medicaid PCP 11/15/22 Mariia Bernal PA-C Office Address Unavailable as of 07/04/2023 PCP - [facility] PCP 05/18/23 Binu Baldwin, [employer]-PAINT PREP TECHNICIAN [address] [place] [address] Referring Physician Gastroenterology 04/01/24 Leaf Tier Relationship Specialty Start Date End Date Matthew Orozco [address] [address] PCP - General 08/11/16 Mariia Bernal PA-C Office Address Unavailable as of 07/04/2023 PCP - [employer] Medicaid PCP 11/15/22 Mariia Bernal PA-C Office Address Unavailable as of 07/04/2023 PCP - [facility] PCP 05/18/23 Leaf Tier Relationship Specialty Start Date End Date [place]rozcoDO [address] [address] PCP - General 08/11/16 Mariia Bernal PA-C Office Address Unavailable as of 07/04/2023 PCP - [employer] Medicaid PCP 11/15/22 Mariia Bernal PA-C Office Address Unavailable as of 07/04/2023 PCP - [facility] PCP 05/18/23 Binu Baldwin APRN-PAINT PREP TECHNICIAN [address] [place] [address] Referring Physician Gastroenterology 04/01/24 Leaf Tier Relationship Specialty Start Date End Date Matthew Orozco [address] [address] PCP - General 08/11/16 Mariia Bernal PA-C PCP - [facility] PCP 05/18/23 Kiko Aburto [employer]-PAINT PREP TECHNICIAN [address] [facility] [address] [address] PCP - [employer] Medicaid PCP 05/18/24 Binu Baldwin APRN-PAINT PREP TECHNICIAN [address] [place] [address] Referring Physician Gastroenterology 04/01/24 Leaf Tier Relationship Specialty [place] [address] [address] PCP - General 08/11/16 Mariia Bernal PA-C PCP - [facility] PCP 05/18/23 Kiko Aburto APRN-PAINT PREP TECHNICIAN [address] [place] [address] [address] PCP - [employer] INS[employer] Medicaid PCP 05/18/24 Binu Baldwin APRN-PAINT PREP TECHNICIAN [address] [place] [address] Referring Physician Gastroenterology 04/01/24 Leaf Tier Relationship Specialty Start [place] [address] [address] PCP - General 08/11/16 Mariia Bernal PA-C Office Address Unavailable as of 07/04/2023 PCP - [facility] PCP 05/18/23 Mariia Bernal PA-C Office Address Unavailable as of 07/04/2023 PCP - [employer] INS[employer] Medicaid PCP 08/16/24 Binu Baldwin APRN-PAINT PREP TECHNICIAN [address] [place] [address] Referring Physician Gastroenterology 04/01/24 Leaf Tier Relationship Specialty Start Date End Date Lila Orozcojoaquina OliverDO [address] [facility] [address] [place] [address] PCP - General 08/11/16 Mariia Bernal PA-C Office Address Unavailable as of 07/04/2023 PCP - [facility] PCP 05/18/23 Mariia Bernal PA-C Office Address Unavailable as of 07/04/2023 PCP - [facility] Medicaid PCP 08/16/24 Binu Baldwin APRN-PAINT PREP TECHNICIAN [address] [place] [address] Referring Physician Gastroenterology 04/01/24 Leaf Tier Relationship Specialty Start [place] [address] [address] PCP - General 08/11/16 Mariia Bernal PA-C Office Address Unavailable as of 07/04/2023 PCP - [facility] PCP 05/18/23 Mariia Bernal PA-C Office Address Unavailable as of 07/04/2023 PCP - [facility] Medicaid PCP 08/16/24 Binu Baldwin [employer]P TECHNICIAN [address] [place] [address] Referring Physician Gastroenterology 04/01/24 Goals (unrecognized section and content) Goals may be documented in a n alternate section Scheduled Active and Recently Administ ered Medications (unrecognized section and content) Medication Order 04/18/2024 04/19/2024 04/20/2024 acetaminophen (Ofirmev) injection 1,000 mg () 1,000 mg, intravenous, at 400 mL/hr, Administer over 15 Minutes, Every 6 hours scheduled, First dose on 04/16/24 at 1800, For 12 doses 0055 (New Bag - Provider: Lola Dickinson, MARILEE)0113 (Stopped - Provider: Lola Dickinson RN)0626 (Not Given - Provider: Lola Dicknison RN - Reason: Patient not available)0805 (New Bag - Provider: Felicitas Weinstein RN)0835 (Stopped - Provider: Felicitas Weinstein RN)1510 (New Bag - Provider: Felicitas Weinstein RN)1530 (Stopped - Provider: Felicitas Weinstein RN)2029 (New Bag - Provider: Gianna Chakraborty RN - Comment: due every 6 hours)2045 (Stopped - Provider: Gianna Chakraborty RN) 0216 (New Bag - Provider: Gianna Chakraborty RN)0235 (Stopped - Provider: Gianna Chakraborty RN)1007 (New Bag - Provider: Felicitas Weinstein RN)1022 (Stopped - Provider: Felicitas Weinstein RN)1815 (Not Given - Provider: Felicitas Weinstein RN - Reason: Medication not available) azaTHIOprine (Imuran) tablet 50 mg 50 mg, oral, Every other day, First dose on 04/17/24 at 0900, Administer and clamp NG for 60 minutes after 0847 (Given - Provider: Felicitas Weinstein RN) azaTHIOprine (Imuran) tablet 75 mg 75 mg, oral, Every other day, First dose on 04/18/24 at 0900, Administer and clamp NG for 60 minutes after 0806 (Not Given - Provider: Felicitas Weinstein RN - Reason: Patient/family refused - Comment: pt verablized that she can not swallow oral meds at this pain due to throat pain from NG tube. will notify provider) 0857 (Given - Provider: Susan Arenas RN) bisacodyl (Dulcolax) suppository 10 mg 10 mg, rectal, Daily, First dose on 04/17/24 at 0900 0806 (Given - Provider: Felicitas Weinstein RN) 0848 (Not Given - Provider: Felicitas Weinstein RN - Reason: Patient/family refused - Comment: per pt, has had multiple loose bms) 0908 (Not Given - Provider: Susan Arenas RN - Reason: Patient/family refused - Comment: Pt having loose stools) diatrizoate karen-diatrizoat sod (Gastrografin 37% organic bound iodine) solution 250 mL (COMPLETED) 250 mL, oral, Once, On 04/18/24 at 1515, For 1 dose, What is the indication of use? Diagnostic Use 1450 (Given - Provider: Donita Sanchez) enoxaparin (Lovenox) syringe 40 mg 40 mg, subcutaneous, Every 24 hours, First dose on 04/16/24 at 1730, Indications: deep vein thrombosis prevention 181 (Given - Provider: Felicitas Weinstein RN) 181 (Given - Provider: Felicitas Weinstein RN) 1730 (Due) lidocaine 4 % patch 1 patch 1 patch, transdermal, Administer over 12 Hours, Daily, First dose on Thu04/17/24 at 1230, Apply to abdomen. Patch will remain on for 12 hours, then removed for [address] patch directly over any surgical incisions or wounds. 0805 (Not Given - Provider: Felicitas Weinstein RN - Reason: Patient/family refused) 0849 (Not Given - Provider: Felicitas Weinstein RN - Reason: Patient/family refused) 0857 (Medication Applied - Provider: Susan Arenas RN - Comment: ABD)2056 (Due: Medication Removed - Provider: Susan Arenas RN) methocarbamol (Robaxin) injection 1,000 mg 1,000 mg, intravenous, Administer over 5 Minutes, Every 8 hours, First dose on 04/16/24 at 1915 0249 (Given - Provider: Lola Dickinson RN)1103 (Given - Provider: Felicitas Weinstein RN)1815 (Given - Provider: Felicitas Weinstein RN) 0216 (Given - Provider: Gianna Chakraborty, MARILEE)1137 (Given - Provider: Felicitas Weinstein RN)1818 (Given - Provider: Felicitas Weinstein RN) 0239 (Given - Provider: Gianna Chakraborty RN)1154 (Not Given - Provider: Susan Arenas RN - Reason: Patient/family refused - Comment: Pt said she does not need it)191 (Due) pantoprazole (ProtoNix) injection 40 mg 40 mg, intravenous, Daily before breakfast, First dose on 04/17/24 at 0700, Use pantoprazole injection if patient unable to take meds orally or per feeding tube. 0627 (Given - Provider: Lola Dickinson RN) 0604 (Given - Provider: Gianna Chakraborty RN) 0618 (Given - Provider: Gianna Chakraborty RN) potassium chloride 20 mEq in sterile water for injection 100 mL (COMPLETED) 20 mEq, intravenous, at 50 mL/hr, Administer over 2 Hours, Once, On Thu04/18/24 at 1000, For 1 dose, Via peripheral line 1103 (New Bag - Provider: Felicitsa Weinstein RN)1507 (Stopped - Provider: Felicitas Weinstein RN) Continuous Medication Order 04/18/2024 04/19/2024 04/20/2024 dextrose 5 % and sodium chloride 0.45 % with KCl 20 mEq/L infusion () 50 mL/hr, intravenous, Continuous, Starting on Thu04/18/24 at 1900, For 1 day 1909 (New Bag - Provider: Felicitas Weinstein RN) 0605 (New Bag - Provider: Gianna Chakraborty RN)0654 (Rate/Dose Change - Provider: Gianna Chakraborty RN)1007 (Rate/Dose Change - Provider: Felicitas Weinstein RN)2105 (Stopped - Provider: Gianna Chakraborty RN) lactated Ringer's infusion (CANCELED) 100 mL/hr, intravenous, Continuous, Starting on Thu04/17/24 at 1730, For 1 day 0809 (New Bag - Provider: Felicitas Weinstein RN)1808 (Stopped - Provider: Felicitas Weinstein RN) PRN Medication Order 04/18/2024 04/19/2024 04/20/2024 benzocaine-menthol (Cepastat Sore Throat) lozenge 1 lozenge 1 lozenge, Mouth/Throat, Every 2 hour PRN, sore throat, Starting on 04/17/24 at 0830 HYDROmorphone PF (Dilaudid) injection 0.2 mg 0.2 mg, intravenous, Every 4 hours PRN, pain moderate (4-6), second line, Starting on 04/16/24 at 1700 ondansetron (Zofran) injection 4 mg 4 mg, intravenous, Every 6 hours PRN, nausea/vomiting, first line, Starting on 04/16/24 at 1658, When administering via IV Push, administer over 3-5 minutes. phenoL (Chloraseptic) 1.4 % mouth/throat spray 1 spray 1 spray, Mouth/Throat, Every 2 hour PRN, sore throat, Starting on 04/16/24 at 1717, Instruct patient to spit out after 15 seconds. FOR RECORDS PERTAINING TO PATIENTS WHO ARE [...] BE BASED ON THE PRIMARY CLINICAL RECORDS. [email or web address] provides no warranty or guarantee of the accuracy or completeness of information in this document.
[2025-01-29 17:46] VITALS: BP 149/91; PULSE 91; TEMP 37.1; O2SAT 98; BMI 38.1
--- NOTE | 2025-01-29 18:27 | ED.GENADUL1 ---
HPI HPI - General Adult General Chief complaint: Ear Stated complaint: EARACHE Time Seen by Provider: 01/29/25 18:01 Source: patient Mode of arrival: walk-in Limitations: no limitations History of Present Illness HPI narrative: 34-year-old female presents for decreased hearing in her right ear. It feels clogged. She has had this for about a week. She used an [id number] method to help and it worked a little bit but it is clogged up again. No symptoms in the left ear and no sore throat. Related Data Home Medications ?Medication ?Instructions ?Recorded ?Confirmed adalimumab 40 mg/0.4 mL 40 mg subcut .WEEKLY 10/24/22 01/29/25 subcutaneous pen kit (Humira(CF) Pen) azathioprine 50 mg tablet 50 mg PO .EVERY OTHER DAY 10/24/22 01/29/25 levothyroxine 125 mcg tablet 250 mcg PO DAILY 10/24/22 01/29/25 Allergies Allergy/AdvReac Type Severity Reaction Status Date / Time No Known Drug Allergies Allergy Verified 01/29/25 17:46 Opioid HPI Opioid Management Most Recent Opioid Data: Last Pain Scale 4 Today, 17:46 Review of Systems ROS Narrative A ten point review of systems is negative except as noted above. PFSH PFSH Social History Smoking status: Never smoker Little interest or pleasure in doing things: not at all Feeling down, depressed, or hopeless: not at all Exam Narrative Exam Narrative: Nurses note and vital signs reviewed and patient is not hypoxic. General: The patient appears well and in no apparent distress. Patient is resting comfortably on cart. Skin: Warm, dry, no pallor noted. There is no rash noted. Head: Normocephalic, atraumatic Eye: Normal conjunctiva, no drainage Ears, Nose, Mouth, and Throat: oral mucosa is moist. Nares patent. Left TM and natural canal are normal in appearance. Very minimal amount of wax present. The right TM is obscured by cerumen. Cardiovascular: Regular Rate and Rhythm Respiratory: Patient is in no distress, no accessory muscle use, lungs are clear to auscultation, no wheezing, rales or rhonchi Back: non-tender GI: Soft and nontender Musculoskeletal: No joint swelling Neurological: Awake and alert Psychiatric: Cooperative Constitutional Vital Signs, click to edit/add: Last Vital Signs Temp 98.7 F 01/29/25 17:46 Pulse 91 H 01/29/25 17:46 Resp 01/29/25 17:46 BP 149/91 H 01/29/25 17:46 Pulse Ox 98 01/29/25 17:46 O2 Del Method Room Air 01/29/25 17:46 Course Vital Signs Vital signs: Vital Signs Temperature 98.7 F 01/29/25 17:46 Pulse Rate 91 H 01/29/25 17:46 Respiratory Rate 14 01/29/25 17:46 Blood Pressure 149/91 H 01/29/25 17:46 Pulse Oximetry 98 01/29/25 17:46 Oxygen Delivery Method Room Air 01/29/25 17:46 Temperature 98.7 F 01/29/25 17:46 Pulse Rate 91 H 01/29/25 17:46 Respiratory Rate 01/29/25 17:46 Blood Pressure 149/91 H 01/29/25 17:46 Pulse Oximetry 98 01/29/25 17:46 Oxygen Delivery Method Room Air 01/29/25 17:46 Medical Decision Making MDM Narrative Medical decision making narrative: Ear irrigation is ordered and the patient is signed out to Dr. Barton at change of shift. Differential Diagnosis Differential Diagnosis: Cerumen impaction, otitis media, otitis externa Discharge Plan Discharge Patient Disposition: Still a Patient
== END 2025-01-29 19:35 | disposition home or self-care (01) ==
PROVIDERS: Emergency Provider Internal Medicine
DX: H61.21 Impacted cerumen, right ear (principal)
CPT/HCPCS: 99281